=== PATIENT | male | born 1940 | race Caucasian/White ===

== ENCOUNTER 2019-12-27 09:43 | Outpatient (CLI) | payer MEDICARE, BC, SELFPAY ==
[2019-12-27 10:33] LABS: Alanine Aminotransferase 18 U/L (4-50); Alkaline Phosphatase 70 U/L (38-126); Aspartate Amino Transferase 26 U/L (17-59); Bilirubin,Total 0.7 mg/dL (0.2-1.3); Blood Urea Nitrogen 14 mg/dL (9-20); Calcium 8.8 mg/dL (8.4-10.2); Carbon Dioxide 31 mmol/L (22-30); Chloride 103 mmol/L (98-107); Cholesterol 127 mg/dL (0-200); Estimated Glomerular Filt Rate > 60; Glucose 123 mg/dL (75-110); HDL Direct 35 mg/dL; Potassium 3.9 mmol/L (3.4-5.0); Sodium 138 mmol/L (137-145); Triglycerides 108 mg/dL (<150)
[2019-12-27 10:44] LABS: LDL Cholesterol Direct 72 mg/dL
[2019-12-27 10:56] LABS: Hemoglobin A1C 7.2 % (<5.7)
[2019-12-27 11:06] LABS: Free T4 Free Thyroxine 1.11 ng/mL (0.78-2.19)
== END 2019-12-27 09:44 | disposition home or self-care (01) ==
PROVIDERS: PCP Internal Medicine; Visit Provider Nurse Practitioner
DX: E11.9 Type 2 diabetes mellitus without complications (principal); I10 Essential (primary) hypertension; E03.9 Hypothyroidism, unspecified
CPT/HCPCS: 36415; 80053; 80061; 83036; 84439; 84443

== ENCOUNTER 2020-03-13 16:26 | Emergency (ER) | payer MEDICARE, BC, SELFPAY ==
[2020-03-13 16:33] VITALS: BP 138/62; PULSE 80; RESP 14; TEMP 36.2; O2SAT 97
--- NOTE | 2020-03-13 17:15 | ED.GENADULT ---
HPI - General Adult General Chief complaint: Extremity Injury, Upper Stated complaint: finger injury Time Seen by Provider: 03/13/20 16:37 Source: patient Mode of arrival: ambulatory Limitations: no limitations History of Present Illness HPI narrative: Patient is an 80-year-old male who presents to emergency department for evaluation of laceration of the thumb patient had a flat head screwdriver slipped lacerating the thumb patient presents with half centimeter linear laceration that is superficial patient is unsure as to tetanus status Related Data Home Medications Medication Instructions Recorded Confirmed tacrolimus 0.1 % topical ointment 1 applic TOPICAL DAILY gm 06/28/19 metronidazole 0.75 % topical gel 1 applic TOPICAL DAILY 01/03/20 Allergies Allergy/AdvReac Type Severity Reaction Status Date / Time No Known Allergies Allergy Mild Verified 03/13/20 16:32 Review of Systems Review of Systems: All systems reviewed & are unremarkable except as noted in HPI and below PMFSH Social History Social History Smoking status: Never smoker Second hand tobacco smoke exposure: No Alcohol intake: never Gender identity (if verbalized by the patient): Male Exam Narrative: Exam Narrative: GENERAL: Well-appearing, well-nourished, and in no acute distress. HEAD: Normocephalic, atraumatic. EYES: PERRLA and EOMI. ENT: Nares clear, no rhinorrhea or epistaxis. Mucous membranes moist. EXTREMITIES: Normal range of motion. No edema. SKIN: Warm, dry, no rash. Half centimeter irregular superficial laceration of the distal left thumb NEURO: No focal deficits. Alert and oriented x3. Neurovascularly intact PSYCH: Normal mood and affect. Course Course Emergency Course: Patient in the room aware of case findings treatment plan and diagnosis agreeing to follow-up as directed Vital Signs Vital signs: Vital Signs Temperature 97.1 F L 03/13/20 16:33 Pulse Rate 80 03/13/20 16:33 Respiratory Rate 14 03/13/20 16:33 Blood Pressure 138/62 03/13/20 16:33 Pulse Oximetry 97 03/13/20 16:33 Temperature 97.1 F L 03/13/20 16:33 Pulse Rate 80 03/13/20 16:33 Respiratory Rate 14 03/13/20 16:33 Blood Pressure 138/62 03/13/20 16:33 Pulse Oximetry 97 03/13/20 16:33 Procedures Laceration Laceration 1: Date: 03/13/20 Time: 17:16 Site: upper extremity Side (If applicable): left Description: irregular Pre-repair: wound explored ====== Skin Level ====== Skin layer closed with: steri strips ====== Subcutaneous Layer ====== ====== Muscle Layer ====== ====== Tendon Layer ====== Medical Decision Making MDM Narrative Medical decision making narrative: Patients injury or pain is consistent with musculoskeletal etiology. No signs of neurological or vascular compromise on exam. Compartments and tisues are soft without signs of compartment syndrome. Pain is felt appropriate for further evaluation on an outpatient basis. Vital Signs Vital Signs: Vital Signs Temperature 97.1 F L 03/13/20 16:33 Pulse Rate 80 03/13/20 16:33 Respiratory Rate 14 03/13/20 16:33 Blood Pressure 138/62 03/13/20 16:33 Pulse Oximetry 97 03/13/20 16:33 Temperature 97.1 F L 03/13/20 16:33 Pulse Rate 80 03/13/20 16:33 Respiratory Rate 14 03/13/20 16:33 Blood Pressure 138/62 03/13/20 16:33 Pulse Oximetry 97 03/13/20 16:33 Discharge Plan Discharge Clinical Impression: Laceration of thumb Patient Disposition: Home, Self-Care Condition: Stable Instructions: Antibiotic Form, Laceration (ED) Additional Instructions: Keep wound clean and dry. Do not soak, take baths, or swim until wound is completely healed. If any signs of infection such as redness, swelling, increasing pain, drainage of purulent discharge, streaks up your extremity develop, seek medical attention
[2020-03-13] MEDS: TETANUS,DIPHTHERIA,AC PERTUSSIS ADULT (0.5 ML) BOOSTRIX IM (18:00)
== END 2020-03-13 18:01 | disposition home or self-care (01) ==
PROVIDERS: Emergency Provider Emergency Medicine; PCP Internal Medicine
DX: S61.012A Laceration without foreign body of left thumb without damage to nail, initial encounter (principal); W27.0XXA Contact with workbench tool, initial encounter; Z23 Encounter for immunization
CPT/HCPCS: 90471; 90715; 99282

== ENCOUNTER 2020-05-04 14:42 | Outpatient (CLI) | payer MEDICARE, BC, SELFPAY ==
[2020-05-04 15:22] LABS: Hematocrit 34.3 % (42.0-52.0); Hemoglobin 11.7 g/dL (14.0-18.0)
[2020-05-04 15:32] LABS: Hemoglobin A1C 6.8 % (<5.7)
[2020-05-04 15:34] LABS: Alanine Aminotransferase 19 U/L (4-50); Albumin Level 3.9 g/dL (3.5-5.1); Alkaline Phosphatase 69 U/L (38-126); Anion Gap 7 mmol/L (8-16); Aspartate Amino Transferase 23 U/L (17-59); Bilirubin,Total 0.8 mg/dL (0.2-1.3); Blood Urea Nitrogen 15 mg/dL (9-20); Carbon Dioxide 29 mmol/L (22-30); Chloride 104 mmol/L (98-107); Cholesterol 137 mg/dL (0-200); Estimated Glomerular Filt Rate > 60; Glucose 163 mg/dL (75-110); HDL Direct 33 mg/dL; Potassium 3.7 mmol/L (3.4-5.0); Sodium 140 mmol/L (137-145); Triglycerides 291 mg/dL (<150)
[2020-05-04 15:45] LABS: LDL Cholesterol Direct 66 mg/dL
[2020-05-04 16:04] LABS: Thyroid Stimulating Hormone 0.995 uIU/mL (0.465-4.680)
== END 2020-05-04 14:43 | disposition home or self-care (01) ==
PROVIDERS: PCP Internal Medicine; Visit Provider Internal Medicine
DX: E78.5 Hyperlipidemia, unspecified (principal); E11.9 Type 2 diabetes mellitus without complications; I10 Essential (primary) hypertension; D64.9 Anemia, unspecified; E03.9 Hypothyroidism, unspecified
CPT/HCPCS: 36415; 80053; 80061; 83036; 84443; 85014; 85018

== ENCOUNTER 2020-10-20 10:00 | Outpatient (CLI) | payer MEDICARE, BC, SELFPAY ==
[2020-10-20 10:23] LABS: Hemoglobin A1C 6.7 % (<5.7)
[2020-10-20 10:26] LABS: Potassium 4.3 mmol/L (3.4-5.0)
[2020-10-20 10:28] LABS: Alanine Aminotransferase 20 U/L (4-50); Albumin Level 3.7 g/dL (3.5-5.1); Alkaline Phosphatase 67 U/L (38-126); Anion Gap 3 mmol/L (8-16); Aspartate Amino Transferase 27 U/L (17-59); Bilirubin,Total 1.1 mg/dL (0.2-1.3); Blood Urea Nitrogen 17 mg/dL (9-20); Calcium 8.3 mg/dL (8.4-10.2); Carbon Dioxide 31 mmol/L (22-30); Chloride 104 mmol/L (98-107); Cholesterol 84 mg/dL (0-200); Estimated Glomerular Filt Rate > 60; Glucose 130 mg/dL (75-110); HDL Direct 36 mg/dL; Sodium 138 mmol/L (137-145); Triglycerides 121 mg/dL (<150)
[2020-10-20 10:41] LABS: LDL Cholesterol Direct < 30 mg/dL
== END 2020-10-20 10:01 | disposition home or self-care (01) ==
LOC: ANHLAB 10:03
PROVIDERS: PCP Internal Medicine; Visit Provider Nurse Practitioner
DX: E78.5 Hyperlipidemia, unspecified (principal); E11.9 Type 2 diabetes mellitus without complications
CPT/HCPCS: 36415; 80053; 80061; 83036

== ENCOUNTER 2020-11-02 11:28 | Outpatient (CLI) | payer MEDICARE, BC, SELFPAY ==
[2020-11-02 12:15] LABS: Hematocrit 32.9 % (42.0-52.0); Hemoglobin 11.2 g/dL (14.0-18.0)
== END 2020-11-02 11:29 | disposition home or self-care (01) ==
PROVIDERS: PCP Internal Medicine; Visit Provider Internal Medicine
DX: G62.9 Polyneuropathy, unspecified (principal); D64.9 Anemia, unspecified; I10 Essential (primary) hypertension; Z79.899 Other long term (current) drug therapy
CPT/HCPCS: 36415; 82607; 85014; 85018

== ENCOUNTER 2021-04-28 07:25 | Outpatient (CLI) | payer MEDICARE, BC, SELFPAY ==
[2021-04-28 08:19] LABS: Alanine Aminotransferase 30 U/L (4-50); Albumin Level 3.9 g/dL (3.5-5.1); Alkaline Phosphatase 69 U/L (38-126); Anion Gap 5 mmol/L (8-16); Aspartate Amino Transferase 32 U/L (17-59); Bilirubin,Total 0.9 mg/dL (0.2-1.3); Blood Urea Nitrogen 19 mg/dL (9-20); Calcium 9.1 mg/dL (8.4-10.2); Carbon Dioxide 30 mmol/L (22-30); Chloride 104 mmol/L (98-107); Cholesterol 105 mg/dL (0-200); Estimated Glomerular Filt Rate > 60; Glucose 105 mg/dL (65-110); HDL Direct 41 mg/dL; Potassium 4.2 mmol/L (3.4-5.0); Sodium 139 mmol/L (137-145); Triglycerides 178 mg/dL (<150)
[2021-04-28 08:29] LABS: Hemoglobin A1C 6.8 % (<5.7)
[2021-04-28 08:31] LABS: LDL Cholesterol Direct 38 mg/dL
[2021-04-28 08:51] LABS: Vitamin D 25 Hydroxy 36.7 ng/mL
== END 2021-04-28 07:26 | disposition home or self-care (01) ==
PROVIDERS: PCP Internal Medicine; Visit Provider Internal Medicine
DX: E11.9 Type 2 diabetes mellitus without complications (principal); E78.5 Hyperlipidemia, unspecified; Z51.81 Encounter for therapeutic drug level monitoring; Z79.899 Other long term (current) drug therapy; E55.9 Vitamin D deficiency, unspecified; E03.9 Hypothyroidism, unspecified
CPT/HCPCS: 36415; 80053; 80061; 82306; 83036; 84443

== ENCOUNTER 2021-06-07 16:00 | Inpatient (IN) | payer MEDICARE, BC, SELFPAY ==
[2021-06-07] VITALS (7 sets, daily range): BP systolic 151–180; BP diastolic 73–86; PULSE 59–73; RESP 12–18; TEMP 36.2–36.6; O2SAT 96–99
--- NOTE | ~2021-06-07 | US_ITS ---
EXAMINATION: US venous doppler [facility] DATE: 06/08/2021 14:37 INDICATION: Lower limb edema. TECHNIQUE: Grayscale ultrasound images without and with compression and Doppler ultrasound images of the bilateral lower extremity veins were obtained. COMPARISON: None. FINDINGS: The visualized portions of right common femoral vein, profunda (deep) femoral vein, femoral vein, pop liteal vein, peroneal veins, posterior tibial veins, and greater saphenous vein outflow are patent. The visualized portions of left common femoral vein, profunda femoral vein, femoral vein, popliteal v ein, peroneal veins, posterior tibial veins, and greater saphenous vein outflow are patent. IMPRESSION: 1. No deep venous thrombosis. Reviewed, dictated and finalized at location A. OMER SUCCESS DIRECTOR
--- NOTE | ~2021-06-07 | XR_ITS ---
EXAMINATION: XR chest 1V portable DATE: 06/08/2021 14:34 INDICATION: Lower limb edema. TECHNIQUE: A single frontal view of the chest was obtained. COMPARISON: Chest 2 views 07/05/2018, CT abdomen and pelvis 03/14/2019 FINDINGS: Calcified pulmonary nodules are consistent with old granulomatous disease. No pleural effus ion or pneumothorax. The heart size is normal. IMPRESSION: 1. No acute cardiopulmonary disease. Reviewed, dictated and finalized at location A. DRIVER
--- NOTE | ~2021-06-07 | US_ITS ---
EXAMINATION: US carotid duplex BI DATE: 06/09/2021 17:12 INDICATION: Syncope. TECHNIQUE: Grayscale, color Doppler, and pulsed Doppler images of the cervical carotid arteries were obtained. The degree of vessel stenosis is placed in one of the following categories: normal, <50%, 5 0-69%, >=70% but less than near-occlusion, near-occlusion, or total occlusion. Note that percent sten osis relative to normal distal artery lumen diameter is indirectly measured from velocity measurement s as described by , et al. Radiology 2003; 229:340-346. COMPARISON: Ultrasound 01/13/2010 FINDINGS: RIGHT: The right common carotid artery (CCA) peak systolic velocity (PSV) is 101 cm/s. The right internal ca rotid artery (ICA) PSV is 93 cm/s. The right ICA end-diastolic velocity (EDV) is 11 cm/s. The right I CA/CCA PSV ratio is 0.9. Grayscale and color Doppler images yield an estimate of <50% diameter reduct ion from plaque in the ICA. There is antegrade flow in the right vertebral artery. LEFT: The left CCA PSV is 84 cm/s. The left ICA PSV is 141 cm/s. The left ICA EDV is 25 cm/s. The left ICA/ CCA PSV ratio is 1.7. Grayscale and color Doppler images yield an estimate of <50% diameter reduction from plaque in the ICA. There is antegrade flow in the left vertebral artery. IMPRESSION: 1. <50% stenosis in the right internal carotid artery. 2. <50% stenosis in the left internal carotid artery. Reviewed, dictated and finalized at location A. ET STONE POSITIONER
--- NOTE | ~2021-06-07 | CT_ITS ---
. EXAMINATION: CTA chest DATE: 06/08/2021 16:30 INDICATION: Chest pain. TECHNIQUE: Computed tomographic angiography (CTA) of the chest was performed with 100 mL Omnipaque-35 0 intravenous contrast. Automated exposure control and iterative reconstruction technique were employ ed. The dose-length product was 430.98 mGy-cm. Maximum intensity projection 3D-reconstructions of the aorta and other arteries were constructed by the technologist on a separate workstation. COMPARISON: CT abdomen and pelvis 03/14/2019 FINDINGS: The lungs demonstrate mild atelectasis. There is a chronic 7 mm nodule in right middle lobe , likely benign. There is a chronic 3 mm nodule in lingula, likely benign. No pleural effusion. The h eart size is normal. No pericardial effusion. There is no pulmonary embolus. There is mild aortic ath erosclerosis. No aneurysm or dissection. 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 There is mild thoracic spondylosis. IMPRESSION: 1. Mild aortic atherosclerosis. No aneurysm or dissection. 2. No pulmonary embolus. Reviewed, dictated and finalized at location A. CTOR DIGITAL COMMUNICATIONS
--- NOTE | ~2021-06-07 | MR_ITS ---
EXAMINATION: MR brain/brain stem wo con EXAM DATE: 06/10/2021 12:09 INDICATION: Persistent headache, transient hypotension. TECHNIQUE: Magnetic resonance imaging (MRI) of the brain/brain stem obtained without contrast. Sagitt al T1, axial diffusion, gradient echo (T2*), T1, T2, FLAIR sequences obtained. Comparison is made to prior examination from 01/13/2010. FINDINGS: There are no areas of restricted diffusion to suggest acute infarction. There is no acute hemorrhage seen on the T2*, a hemosiderin sensitive sequence. No intraparenchymal brain mass lesion. CSF herniation into the sella turcica, empty sella appearance unchanged. There is mild periventric ular and subcortical T2/FLAIR signal hyperintensity, nonspecific but probably related to small vessel ischemic disease (microangiopathy). There is mild prominence of the sulci and ventricles related t o cerebral atrophy. There are no extra-axial collections. Flow voids are seen in the cerebral bebeto rachel on the T2-weighted sequences consistent with their expected patency. The orbits are unremarkabl e. Soft tissue is unremarkable. Moderate-sized mucous retention cyst inferior aspect left maxillary sinus. IMPRESSION: 1. No acute intracranial findings. 2. Chronic age related findings, mild progression compared to 2009. Reviewed, dictated and finalized at location B. NCE MGR
--- NOTE | ~2021-06-07 | CT_ITS ---
EXAMINATION: CT brain wo con DATE: 06/07/2021 21:26 INDICATION: Dizziness TECHNIQUE: Computed tomography (CT) of the head was performed without intravenous contrast. Sagittal and coronal reconstructions were performed. The mA was adjusted according to patient size. Iterative reconstruction technique was employed. The dose-length product was 529.67 mGy-cm. COMPARISON: head CT dated 07/13/2018 FINDINGS: No acute intracranial hemorrhage, acute infarction or abnormal extra axial fluid collection. There is mild scattered white matter hypoattenuation consistent with chronic small vessel ischemic disease. S ymmetric prominence of the sulci and subarachnoid spaces overlying the convexities consistent with mi ld age-appropriate diffuse cerebral volume loss. Ventricles are normal and symmetric. No mass/mass e ffect. Mild mucosal thickening in the bilateral ethmoid and right maxillary sinuses. The orbits and m astoid air cells are normal. IMPRESSION: 1. Normal aging brain. No acute intracranial process. Reviewed, dictated and finalized at location A. AL SERVICE TECHNICIAN
--- NOTE | 2021-06-07 16:07 | ECG_ITS ---
Measurements Intervals [place] Rate: 69 P: 17 NE: 163 QRS: -28 QRSD: 110 T: 38 QT: 410 QTc: 440 Interpretive Statements SINUS RHYTHM WITH SINUS ARRHYTHMIA INTRAVENTRICULAR CONDUCTION DELAY DELAYED PRECORDIAL R/S TRANSITION BORDERLINE ECG Electronically Signed On 06-07-2021 16:32:22 HOT BLAST WORKER by Jackson Morton D.O.
[2021-06-07 16:37] LABS: Basophils Percent Auto 0.4 % (0.2-1.2); Eosinophils Absolute Auto 0.1 K/mm3 (0-0.3); Eosinophils Percent Auto 0.5 % (0-4.4); Hematocrit 35.6 % (42.0-52.0); Hemoglobin 12.1 g/dL (14.0-18.0); Immature Granulocyte Absolute 0.05 K/mm3 (0.00-0.031); Immature Granulocyte Percent A 0.5 % (0-0.5); Lymphocytes Absolute Auto 1.07 K/mm3 (0.9-3.2); Lymphocytes Percent Auto 11.5 % (18.3-44.2); Mean Corpuscular Hemoglobin 31.1 pg (26-34); Mean Corpuscular Volume 91.5 fl (80-100); Mean Platelet Volume 8.5 fl (7.4-10.4); Monocytes Absolute Auto 0.6 K/mm3 (0.1-0.6); Monocytes Percent Auto 6.7 % (2.6-8.5); Neutrophils Absolute Auto 7.5 K/mm3 (1.3-6.7); Neutrophils Percent Auto 80.4 % (45.5-73.1); Platelet Count Result 257 k/mm3 (150-375); Red Blood Count 3.89 M/mm3 (4.6-6.20); Red Cell Distribution Width 12.8 % (11.5-14.5); White Blood Count 9.3 K/mm3 (4.5-10.0)
[2021-06-07 16:46] LABS: Anion Gap 7 mmol/L (8-16); Blood Urea Nitrogen 20 mg/dL (9-20); Calcium 9.3 mg/dL (8.4-10.2); Carbon Dioxide 29 mmol/L (22-30); Chloride 100 mmol/L (98-107); Estimated CRCL calculation 44 ml/min; Estimated Glomerular Filt Rate > 60; Glucose 178 mg/dL (65-110); Sodium 136 mmol/L (137-145)
--- NOTE | 2021-06-07 21:19 | PC.NURSE ---
Pt to CT via stretcher at this time,
[2021-06-07] MEDS: LACTATED RINGERS 1,000 ML 999 ML IV CONT (21:38)
--- NOTE | 2021-06-07 21:53 | ED.CHESTPAIN ---
HPI - Chest Pain General Chief Complaint: Dizziness Stated Complaint: low BP, CP. Time Seen by Provider: 06/07/21 21:07 Source: patient Mode of arrival: ambulatory Limitations: no limitations History of Present Illness HPI narrative: Patient is an 82-year-old male complaining of chest tightness accompanied by nausea and lightheadedness that started after eating tonight. Patient states that his blood pressure was low when he checked it, 95/45, while he was having the above symptoms. Patient currently denies any chest pain or discomfort. Patient states that he is feeling better and the above symptoms is resolved. Patient denies any speech or visual disturbance, focal weakness or numbness, unsteady gait, shortness of breath, abdominal pain, vomiting, diarrhea, fever or chills. Related Data Home Medications Medication Instructions Recorded Confirmed tacrolimus 0.1 % topical ointment 1 applic TOPICAL DAILY gm 06/28/19 05/12/21 metronidazole 0.75 % topical gel 1 applic TOPICAL DAILY 01/03/20 05/12/21 multivitamin 1 cap PO DAILY 04/29/20 05/12/21 isosorbide dinitrate 30 mg tablet 30 mg PO ONCE tablet 11/02/20 05/12/21 metoprolol succinate 50 mg 50 mg PO DAILY 11/02/20 05/12/21 tablet,extended release 24 hr mecobalamin (vitamin B12) 1,000 1,000 mcg PO DAILY 11/03/20 05/12/21 mcg disintegrating tablet,sublingual vitamin B12 500 mcg-folic acid 400 1 tablet PO DAILY 11/03/20 05/12/21 mcg tablet Allergies Allergy/AdvReac Type Severity Reaction Status Date / Time No Known Allergies Allergy Mild Verified 06/07/21 21:38 Review of Systems Review of Systems: All systems reviewed & are unremarkable except as noted in HPI and below Constitutional: Constitutional: Denies body ache(s), Denies chills, Denies excessive sweating, Denies fatigue, Denies fever(s), Denies headache(s), Denies lethargy, Denies malaise, Denies weakness and Denies weight loss Eyes: Eyes: Denies blurry vision, Denies change in vision and Denies loss of vision ENT: Denies dizziness, Denies ear discharge, Denies headache(s), Denies lip swelling, Denies epistaxis, Denies nasal congestion, Denies neck pain, Denies throat swelling and Denies tongue swelling Cardiovascular: Cardiovascular: Denies chest pain with activity, Denies diaphoresis, Denies rapid heart rate, Denies edema, Denies irregular heart rhythm, Denies palpitations, Denies dyspnea and Denies dyspnea on exertion Respiratory: Respiratory: Denies chest congestion, Denies cough, Denies hemoptysis, Denies dyspnea and Denies dyspnea on exertion Gastrointestinal: Gastrointestinal: Denies abdominal pain, Denies melena, Denies hematochezia, Denies diarrhea, Denies vomiting and Denies hematemesis Musculoskeletal: Musculoskeletal: Denies abnormal gait, Denies deformity, Denies joint swelling, Denies limited range of motion, Denies neck pain and Denies numbness Neurologic: Denies Abnormal speech present, Denies abnormal gait, Denies confusion, Denies dizziness, Denies headache(s), Denies focal weakness, Denies loss of vision, Denies numbness, Denies Other visual disturbances, Denies Sensory deficit (Neuro) and Denies weakness Psychiatric: Psychiatric: Denies confusion, Denies depression, Denies auditory hallucinations, Denies homicidal ideation and Denies suicidal ideation Endocrine: Endocrine: Denies cold intolerance, Denies excessive sweating, Denies fatigue, Denies heat intolerance and Denies palpitations Hematologic/Lymphatic: Hematologic/Lymphatic: Denies easy bleeding and Denies easy bruising Allergic/Immunologic: Allergic/Immunologic: Denies lip swelling, Denies throat swelling and Denies tongue swelling PMFSH Past Medical History Medical History COVID-19 Essential (primary) hypertension Gastro-esophageal reflux disease without esophagitis Hypothyroidism Neuropathy Other and unspecified hyperlipidemia Type 2 diabetes mellitus without complication,
--- NOTE | 2021-06-07 22:23 | PC.NURSE ---
Pt ambulated to restroom with steady gait. No dizziness reported by pt
[2021-06-07 22:30] LABS: Prothrombin Time 12.8 Seconds (11.1-14.7)
[2021-06-07 22:31] LABS: Partial Thromboplastin Time 45.4 SECONDS (22.3-36.8)
[2021-06-07 22:44] LABS: Troponin I < 0.012 ng/mL (0.000-0.034)
[2021-06-08] VITALS (23 sets, daily range): BP systolic 85–164; BP diastolic 51–81; PULSE 55–96; RESP 13–20; TEMP 36.3–37.2; O2SAT 94–98; BMI 30.4
--- NOTE | 2021-06-08 | ECHO_ITS ---
Patient Info Name: Loy Gonzalez Age: 81 years : 1940 Gender: Male Ht: 64 in Wt: 177 lbs BSA: 1.93 m2 HR: 75 bpm BP: 113 / 56 mmHg Heart Rhythm: Sinus Rhythm Exam Date: 06/08/2021 1:55 PM Exam Location: [facility] Pulmonary Patient Status: Inpatient Admit Date: 06/08/2021 Staff Ordering Physician: Brian Thomason MD [employer] Director: Elpidio Hernández RDCS, RT Attending Provider: Estela Rush PA-C Referring Physician: Paddy EARLY; Exam Type: CA echo doppler color flow Study Info Indications R07.9 - Chest pain, unspecified Complete two-dimensional, color flow and Doppler transthoracic echocardiogram is performed. Strain analysis performed. Summary 1. Complete two-dimensional, color flow and Doppler transthoracic echocardiogram is performed. 2. Left ventricular chamber dimension is normal. 3. Left ventricular systolic function is normal, estimated at 65-70%. 4. There is moderately increased left ventricular wall thickness. 5. The left ventricular diastolic function is grade I diastolic dysfunction. 6. Global longitudinal strain is borderline at -17 %. 7. Right ventricular chamber dimension is mildly enlarged. 8. Left atrial chamber dimension is mildly enlarged. 9. There is mild mitral valve regurgitation. 10. There is mild pulmonic regurgitation. 11. Strain analysis performed. Left Ventricle Left ventricular chamber dimension is normal. Left ventricular systolic function is normal, estimated at 65-70%. There is moderately increased left ventricular wall thickness. The left ventricular diastolic function is grade I diastolic dysfunction. Global longitudinal strain is borderline at -17 %. Right Ventricle Right ventricular chamber dimension is mildly enlarged. Right ventricular systolic function is normal. Left Atria Left atrial chamber dimension is mildly enlarged. Right Atria Right atrial chamber dimension is normal. Atrial Septum Intact interatrial septum visualized by color flow imaging. Aortic Valve The aortic valve is trileaflet. There is mild aortic valve sclerosis. There is no aortic valve stenosis. There is trace aortic valve regurgitation. Pulmonic Valve The pulmonic valve is normal. There is no pulmonic valve stenosis. There is mild pulmonic regurgitation. Mitral Valve The mitral valve has normal leaflets. There is no mitral valve stenosis. There is mild mitral valve regurgitation. Tricuspid Valve The tricuspid valve leaflets are normal. There is no significant tricuspid valve stenosis. There is trace tricuspid valve regurgitation. Pericardium/Pleural The pericardium appears normal. There is no pericardial effusion. Inferior Vena Cava Normal inferior vena cava with >50% collapse upon inspiration consistent with normal right atrial pressure, 5 mmHg. Aorta The aortic root size at the sinus of Valsalva is normal. Left Ventricular Outflow Tract Name Value Normal LVOT 2D LVOT Diameter 2.1 cm LVOT Doppler LVOT Peak Gradient 4 mmHg LVOT Mean Gradient 3 mmHg LVOT VTI
--- NOTE | 2021-06-08 01:27 | PM.IMHP ---
H&P: HPI History of Present Illness Date/Time: 06/08/21 01:27 Chief Complaint: Chest discomfort Narrative: This is an 81-year-old male with past medical history significant for hypertension, dyslipidemia, degenerative joint disease. Patient presented to the emergency room after he had an episode of epigastric discomfort which radiated around to the back and to his right shoulder this was 1 he just had had few bites of his meal he immediately went and lay down and his took his blood pressure he was found to have a blood pressure of 95/45 he felt a little dizzy cold and clammy but did not pass out he did he had some nausea but no vomiting he has been his usual state of health prior to this he denies any shortness of breath, cough, sputum production, fevers, rigors, chills, leg swelling,vision changes ,any sensory motor focal deficit ,no chest pain, no PND ,no orthopnea ,preliminary workup has been essentially nonrevealing. Patient has been admitted for further evaluation and treatment. Review of Systems Review of Systems: Epigastric discomfort, dizziness, nausea ,diaphoresis. Constitutional: Constitutional: Denies chills, Denies fatigue, Denies fever(s), Denies lethargy, Denies malaise, Denies night sweats and Denies weakness Eyes: Eyes: Denies change in vision ENT: Denies dysphagia, Reports dizziness, Denies nasal congestion, Denies nasal discharge, Denies nasal obstruction and Denies odynophagia Cardiovascular: Cardiovascular: Denies rapid heart rate, Denies irregular heart rhythm, Denies leg edema, Reports lightheadedness, Denies radiating jaw, neck or arm pain, Denies palpitations, Reports dyspnea, Denies dyspnea on exertion, Denies orthopnea, Denies paroxysmal nocturnal dyspnea and Denies slow heart rate Respiratory: Respiratory: Denies cough Gastrointestinal: Gastrointestinal: Denies dyspepsia, Denies heartburn, Denies diarrhea, Reports nausea and Denies vomiting Genitourinary: Genitourinary: Denies dysuria Musculoskeletal: Musculoskeletal: Reports arthralgias (Left knee) Integumentary/Breasts: Skin/Breast: Denies rash Neurologic: Denies focal weakness and Denies Sensory deficit (Neuro) Psychiatric: Psychiatric: Reports no additional psychiatric complaints and Reports as per HPI Endocrine: Endocrine: Reports no additional endocrine complaints and Reports as per HPI Hematologic/Lymphatic: Hematologic/Lymphatic: Reports no additional hematologic/lymphatic complaints and Reports as per HPI Allergic/Immunologic: Allergic/Immunologic: Reports no additional allergic/immunologic complaints and Reports as per HPI [facility] Past Medical History Medical History COVID-19 Essential (primary) hypertension Gastro-esophageal reflux disease without esophagitis Hypothyroidism Neuropathy Other and unspecified hyperlipidemia Type 2 diabetes mellitus without complication, with no history of insulin use Vitamin D deficiency Family History Family History Mother Family history of gastrointestinal disorder, Onset Age: 85 Family history of congestive heart failure, Onset Age: 85 Patient's mother is Family history of heart disease in male family member before age 55 Family history of congenital heart disease, Onset Age: 85 Father Family history of Alzheimer's disease, Onset Age: 89 Patient's father is Family history of renal failure Sibling Family history of Alzheimer's disease Other Hypertension Social History Social History Smoking status: Former smoker Second hand tobacco smoke exposure: No Additional smoking assessment comments: quit smoking in 1964 Alcohol intake: never Substance use: never Substance use type: does not use Gender identity (if verbalized by the patient): Male Spiritual care concerns: No
--- NOTE | 2021-06-08 01:33 | ADMGEN ---
This patient, Loy Gonzalez, was admitted to IMU Room 207-01 at 0125. Patient/family oriented to hospital policies and general routines including ID bracelet, bed and alarms, visiting hours, pain management, procedures, bathroom and other care routines, personal items, smoking policy, room service/diet, and visiting hours. Information on how to activate the Rapid Response Team has been discussed. Patient/Family are encouraged to report perceived risks to care and to ask questions if they do not understand what they are told or what they should do.
[2021-06-08 03:40] LABS: Troponin I < 0.012 ng/mL (0.000-0.034)
[2021-06-08 05:47] LABS: Troponin I < 0.012 ng/mL (0.000-0.034)
[2021-06-08 08:35] LABS: Glucose Point of Care 108 mg/dl (65-105)
[2021-06-08 09:34] LABS: Basophils Percent Auto 0.6 % (0.2-1.2); Eosinophils Absolute Auto 0.1 K/mm3 (0-0.3); Eosinophils Percent Auto 1.8 % (0-4.4); Hematocrit 36.6 % (42.0-52.0); Hemoglobin 12.7 g/dL (14.0-18.0); Immature Granulocyte Absolute 0.03 K/mm3 (0.00-0.031); Immature Granulocyte Percent A 0.4 % (0-0.5); Lymphocytes Absolute Auto 1.11 K/mm3 (0.9-3.2); Lymphocytes Percent Auto 15.6 % (18.3-44.2); Mean Corpuscular HGB Conc 34.7 g/dl (32-36); Mean Corpuscular Volume 89.3 fl (80-100); Mean Platelet Volume 8.4 fl (7.4-10.4); Monocytes Absolute Auto 0.6 K/mm3 (0.1-0.6); Neutrophils Absolute Auto 5.3 K/mm3 (1.3-6.7); Neutrophils Percent Auto 73.6 % (45.5-73.1); Platelet Count Result 262 k/mm3 (150-375); Red Cell Distribution Width 12.7 % (11.5-14.5); White Blood Count 7.1 K/mm3 (4.5-10.0)
[2021-06-08 09:54] LABS: Anion Gap 10 mmol/L (8-16); Blood Urea Nitrogen 14 mg/dL (9-20); Calcium 9.2 mg/dL (8.4-10.2); Carbon Dioxide 28 mmol/L (22-30); Chloride 101 mmol/L (98-107); Estimated CRCL calculation 59 ml/min; Estimated Glomerular Filt Rate > 60; Glucose 132 mg/dL (65-110); Potassium 3.6 mmol/L (3.4-5.0); Sodium 139 mmol/L (137-145)
[2021-06-08] MEDS: LEVOTHYROXINE SODIUM 75 MCG TABLET PO (10:42)
[2021-06-08] MEDS: GABAPENTIN 100 MG CAPSULE PO ×2 (10:43→17:24)
[2021-06-08] MEDS: FOLIC ACID 0.4 MG TABLET 0.8 MG PO (10:44)
[2021-06-08] MEDS: CHOLECALCIFEROL 1,000 UNITS TABLET 2000 UNITS PO (10:44)
[2021-06-08] MEDS: CYANOCOBALAMIN 1,000 MCG TABLET 1000 MCG PO (10:45)
[2021-06-08] MEDS: amLODIPine BESYLATE 5 MG TABLET PO (10:46)
[2021-06-08] MEDS: PANTOPRAZOLE 40 MG TABLET PO ×2 (10:47→17:24)
[2021-06-08] MEDS: LORATADINE 10 MG TABLET PO (10:48)
[2021-06-08] MEDS: lisinopriL 20 MG TABLET 40 MG PO (11:00)
[2021-06-08] MEDS: MULTIVITAMINS THERAPEUTIC TAB (*BKC) 1 TABLET PO (11:06)
[2021-06-08] MEDS: ISOSORBIDE DINITRATE 10 MG TABLET 30 MG PO (11:07)
--- NOTE | 2021-06-08 11:48 | PM.CNCAR ---
Assessment and Plan Assessment and plan (1) Chest pain: Qualifiers: Chest pain type: unspecified Qualified Code(s): R07.9 - Chest pain, unspecified Code(s): R07.9 - Chest pain, unspecified Status: Acute Assessment and Plan: Somewhat concerning for angina especially in light of his previously abnormal stress test. At this point, I talked about pursuing further uptitration medical management versus cardiac catheterization to define his anatomy. He wishes to pursue an angiogram. Risks, benefits alternatives are discussed and he is willing to proceed. Will keep NPO after midnight for coronary angiogram tomorrow. Continue Isordil. 2D echocardiogram Doppler also be ordered and reviewed. Aspirin 81 mg p.o. daily to be started. Hold metformin in preparation for coronary angiogram tomorrow. (2) Essential (primary) hypertension: Code(s): I10 - Essential (primary) hypertension Status: Acute Assessment and Plan: Continue amlodipine, lisinopril (3) Abnormal stress test: Code(s): R94.39 - Abnormal result of other cardiovascular function study Status: Acute Assessment and Plan: Previous evidence of inferior apical kinesis on stress test from June 2020 (4) Hyperlipidemia associated with type 2 diabetes mellitus: Code(s): E11.69 - Type 2 diabetes mellitus with other specified complication; E78.5 - Hyperlipidemia, unspecified Status: Acute Assessment and Plan: Will increase rosuvastatin up to 20 mg daily. (5) PND (paroxysmal nocturnal dyspnea): Code(s): R06.00 - Dyspnea, unspecified Status: Acute Assessment and Plan: Probably related to sleep apnea. Will check an apnea link tonight History of Present Illness History of Present Illness Consult date/time: 06/08/21 11:48 Requesting physician: Williams Suh MD Consult reason: chest pain Reason For Visit: Chest Pain Narrative: Date of service 06/08/2021 Reason consultation chest pain Requesting provider: Dr. Suh History: Patient is an 81-year-old male patient of Dr. Bauer. Previously saw Dr. Loja. He does have a history of hypertension, hyperlipidemia, diabetes, syncope. He presented the hospital because of some anterior chest tightness as well as some right shoulder pain. 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 It was fairly severe and intense. He then developed a tightness in his chest. He became a bit clammy. He did sit down and start eating some food but became nauseated. He did take an Aleve without any significant benefit initially but then later he thinks it may have helped some. After he became clammy, he laid down and his took his blood pressure was 95 systolic. About 10-15 minutes later he gradually started to feel a bit better as his blood pressure yolanda. Due to continued pain symptoms though which lasted about 2-1/2 hours he decided to come to the hospital for further evaluation. EKG was unremarkable. He has ruled out for myocardial infarction. Has had intermittent chest tightness though throughout the day and night. He states that this is similar to the pain that he had that led to a stress test which was abnormal. At that time it was discussed about whether to proceed with a cardiac catheterization versus medical management. It was decided to pursue medical management. He did feel better with the isosorbide which was added but at this point he wishes to pursue an angiogram to define his anatomy definitively. Over the past year so he has had worsening lower extremity swelling. He also has some dyspnea with climbing up and down stairs which is not particularly a new symptom. He denies any orthopnea or palpitations. Review of Systems Review of Systems: All systems reviewed & are unremarkable except as noted in HPI and below Constitutional: Constitutional: Denies weakness Eyes: Eyes:
--- NOTE | 2021-06-08 12:27 | ECG_ITS ---
Measurements Intervals [place] Rate: 68 P: 27 MS: 156 QRS: -24 QRSD: 102 T: 1 QT: 431 QTc: 461 Interpretive Statements SINUS RHYTHM ATRIAL PREMATURE COMPLEX DELAYED PRECORDIAL R/S TRANSITION CONSIDER INFERIOR INFARCT, AGE INDETERMINATE BORDERLINE ST ABNORMALITY- HIGH LATERAL LEADS BASELINE ARTIFACT- I, II ABNORMAL ECG Electronically Signed On 06-08-2021 13:04:50 MACHINE SILK SCREEN PRINTER by Jackson Morton D.O.
[2021-06-08] MEDS: SODIUM CHLORIDE 0.9% IV 250 ML 999 ML IV CONT (12:34)
[2021-06-08 13:03] LABS: Glucose Point of Care 137 mg/dl (65-105)
[2021-06-08] MEDS: ASPIRIN 81 MG ENTERIC TABLET PO (13:10)
--- NOTE | 2021-06-08 16:13 | PM.IMPN ---
Progress Note: A&P Assessment and Plan (1) Chest pain: Qualifiers: Chest pain type: unspecified Qualified Code(s): R07.9 - Chest pain, unspecified Code(s): R07.9 - Chest pain, unspecified Status: Acute Assessment and Plan: -Atypical -ECG with no ischemic changes -Obtain echo -Continuous telemetry -Serial trop x3 negative -Cardiology consulted, taking for cath in AM -Has had 2 episodes at rest of nausea w/ chest pain and hypotension from 147/68 to 92/54. CXR reviewed, possible tracheal deviation? Pt also had noted back pain at onset. Will check CTA dissection protocol stat to r/o aneurysm/dissection prior to cath tomorrow. He will be hydrated with NS @70/hr to offset the additional dose of IV contrast that he will be receiving in a 24 hour period. (2) Dizziness, nonspecific: Code(s): R42 - Dizziness and giddiness Status: Acute Assessment and Plan: -Likely related to above, has dizziness with his hypotensive episodes (3) Essential (primary) hypertension: Code(s): I10 - Essential (primary) hypertension Status: Acute Assessment and Plan: -Continue home meds (4) Gastro-esophageal reflux disease without esophagitis: Code(s): K21.9 - Gastro-esophageal reflux disease without esophagitis Status: Acute Assessment and Plan: Continue PPI (5) Type 2 diabetes mellitus without complication, with no history of insulin use: Code(s): E11.9 - Type 2 diabetes mellitus without complications Status: Acute Assessment and Plan: -Holding metformin -Insulin sliding scale as needed (6) Neuropathy: Code(s): G62.9 - Polyneuropathy, unspecified Status: Acute Assessment and Plan: Continue gabapentin Subjective Date/time seen: 06/08/21 16:13 Interval history: 81-year-old male with past medical history significant for hypertension, dyslipidemia, degenerative joint disease, admitted to hospital for chest pain. Today patient feels okay. Continues to have intermittent episodes of nausea, chest pain, dizziness, and hypotension. Also notes posterior headache/neck pain. No sob. Also notes bilateral leg cramps today that got better when he got up and started walking around. Review of Systems Review of Systems: General: Denies fevers, chills, bodyaches Eyes: Denies vision changes or eye pain ENT: Denies nasal congestion or sore throat Respiratory: Denies cough or shortness of breath Cardiovascular: + chest pain, no palpitations, + lower extremity edema Gastrointestinal: Denies abdominal pain, vomiting, or diarrhea, +nausea Genitourinary: Denies dysuria or urinary frequency Musculoskeletal: +bilateral knee pain, +bilateral leg cramps Neurological: + headache, paraesthesias, or motor weakness, +dizziness Integumentary: Denies rash or other skin lesions Exam Narrative: General: No acute distress, non toxic appearing Eyes: PERRL, no scleral icterus, EOMI HEENT: NCAT, external ears normal, MMM Respiratory: No respiratory distress, Lungs CTA bilaterally, no wheezing Cardiovascular: RRR, no murmur Abdominal: Soft, nontender, non distended, no rebound or guarding Musculoskeletal: Moves all 4 extremities, +1 pedal edema, DP/PT pulses 2+ Neurological: A/Ox3, speech normal, no facial asymmetry Skin: Warm, dry, no rashes Psychiatric: Normal affect, normal mood Objective Data Vital Signs Vital Signs: Vital Signs - 24 hr 06/07/21 16:18 06/07/21 19:09 06/07/21 21:14 Temperature 97.1 F L 97.8 F Pulse Rate 71 73 64 Respiratory Rate 16 18 13 Blood Pressure 151/77 H 153/85 H 156/77 H Pulse Oximetry 99 97 98 06/07/21 22:33 06/07/21 22:35 06/07/21 22:37 Temperature Pulse Rate 59 L 66 66 Respiratory Rate Blood Pressure 180/81 H 169/86 H 166/74 H Pulse Oximetry 06/07/21 23:19 06/08/21 00:55 06/08/21 01:20 Temperature Pulse Rate 59 L 56 L 63 Respiratory Rate 12 13
[2021-06-08] MEDS: SODIUM CHLORIDE 0.9% IV 1,000 ML 70 ML IV CONT (16:42)
[2021-06-08 17:16] LABS: Glucose Point of Care 198 mg/dl (65-105)
[2021-06-08] MEDS: METOPROLOL SUCCINATE EXT REL 50 MG TABCR PO (17:23)
[2021-06-08] MEDS: ROSUVASTATIN 10 MG TABLET 20 MG PO (18:19)
[2021-06-08 19:40] LABS: Glucose Point of Care 171 mg/dl (65-105)
[2021-06-09] VITALS (28 sets, daily range): BP systolic 58–143; BP diastolic 38–68; PULSE 47–78; RESP 15–20; TEMP 36.6–37.1; O2SAT 94–98
[2021-06-09] MEDS: LEVOTHYROXINE SODIUM 75 MCG TABLET PO (05:35)
[2021-06-09] MEDS: SODIUM CHLORIDE 0.9% IV 1,000 ML 70 ML IV CONT (05:35)
--- NOTE | 2021-06-09 06:27 | WPDMODSED ---
Moderate Sedation Note-Pt Data Patient Data Diagnosis: Chest pain Present Complaint: Exertional CP Procedure to be performed/Plan: Left heart cath Allergies Allergy/AdvReac Type Severity Reaction Status Date / Time No Known Allergies Allergy Mild Verified 06/07/21 21:38 Home Medications Medication Instructions Recorded Confirmed Type cholecalciferol (vitamin D3) 50 2,000 unit PO DAILY #90 tablet 06/28/19 06/08/21 Rx mcg (2,000 unit) tablet tacrolimus 0.1 % topical ointment 1 applic TOPICAL DAILY gm 06/28/19 06/08/21 History metronidazole 0.75 % topical gel 1 applic TOPICAL BID 01/03/20 06/08/21 History multivitamin 1 cap PO DAILY 04/29/20 06/08/21 History isosorbide dinitrate 30 mg tablet 30 mg PO DAILY tablet 11/02/20 06/08/21 History metoprolol succinate 50 mg 50 mg PO DAILY 11/02/20 06/08/21 History tablet,extended release 24 hr mecobalamin (vitamin B12) 1,000 1,000 mcg PO DAILY 11/03/20 06/08/21 History mcg disintegrating tablet,sublingual vitamin B12 500 mcg-folic acid 400 2 tablet PO DAILY 11/03/20 06/08/21 History mcg tablet lisinopril 40 mg tablet 40 mg PO DAILY #90 each 01/04/21 06/08/21 Rx gabapentin 100 mg capsule 100 mg PO BID #60 cap 05/12/21 06/08/21 Rx rosuvastatin 10 mg tablet 10 mg PO .every other day #15 05/31/21 06/08/21 Rx tablet amlodipine 5 mg PO DAILY 06/08/21 06/08/21 History levothyroxine 75 mcg PO DAILY 06/08/21 06/08/21 History loratadine 10 mg PO DAILY 06/08/21 06/08/21 History metformin 500 mg PO BID 06/08/21 06/08/21 History omeprazole 40 mg PO DAILY 06/08/21 06/08/21 History Current Medications: Active Medications Amlodipine Besylate (Amlodipine Besylate 5 Mg Tablet) 5 mg PO DAILY REPLACED BY [facility] Last Admin: 06/08/21 10:46 Dose: 5 mg Documented by: Aspirin (Aspirin 81 Mg Enteric Tablet) [facility] Last Admin: 06/08/21 13:10 Dose: 81 mg Documented by: Cyanocobalamin (Cyanocobalamin 1,000 Mcg Tablet) 1,000 mcg PO QAM REPLACED BY [facility] Last Admin: 06/08/21 10:45 Dose: 1,000 mcg Documented by: Folic Acid (Folic Acid 0.4 Mg Tablet) 0.8 mg PO QAM REPLACED BY [facility] Last Admin: 06/08/21 10:44 Dose: 0.8 mg Documented by: Gabapentin (Gabapentin 100 Mg Capsule) 100 mg PO BID REPLACED BY [facility] Last Admin: 06/08/21 17:24 Dose: 100 mg Documented by: Sodium Chloride (Normal Saline Iv) 1,000 mls @ 70 mls/hr IV CONT .[id number] REPLACED BY [facility] Last Admin: 06/09/21 05:35 Dose: 70 mls/hr Documented by: Isosorbide Dinitrate (Isosorbide Dinitrate 10 Mg Tablet) 30 mg PO DAILY REPLACED BY [facility] Last Admin: 06/08/21 11:07 Dose: 30 mg Documented by: Levothyroxine Sodium (Levothyroxine Sodium 75 Mcg Tablet) 75 mcg PO DAILY@0630 REPLACED BY [facility] Last Admin: 06/09/21 05:35 Dose: 75 mcg Documented by: Lisinopril (Lisinopril 20 Mg Tablet) 40 mg PO DAILY REPLACED BY [facility] Last Admin: 06/08/21 11:00 Dose: 40 mg Documented by: Loratadine (Loratadine 10 Mg Tablet) 10 mg PO DAILY REPLACED BY [facility] Last Admin: 06/08/21 10:48 Dose: 10 mg Documented by: Metoprolol Succinate (Metoprolol Succinate Ext Rel 50 Mg Tabcr) 50 mg PO DAILY REPLACED BY [facility] Last Admin: 06/08/21 17:23 Dose: 50 mg Documented by: Metronidazole (Metronidazole 0.75% Topical Gel 45 Gm) 1 applic TOPICAL Q12HR REPLACED BY [facility] Last Admin: 06/09/21 04:20 Dose: Not Given Documented by: Multivitamins Therapeutic (Multivitamins Therapeutic Tab (*Bkc)) 1 tablet PO DAILY REPLACED BY [facility] Last Admin: 06/08/21 11:06 Dose: 1 tablet Documented by: Pantoprazole Sodium (Pantoprazole 40 Mg Tablet) 40 mg PO BID REPLACED BY [facility] Last Admin: 06/08/21 17:24 Dose: 40 mg Documented by: Rosuvastatin Calcium (Rosuvastatin 10 Mg Tablet) 20 mg PO DAILY REPLACED BY [facility] Last Admin: 06/08/21 18:19 Dose: 20 mg Documented by: Tacrolimus (Tacrolimus 0.1% 30 Gm Ointment) 1 applic TOPICAL Q12HR REPLACED BY [facility] Last Admin: 06/09/21 04:20 Dose: Not Given Documented by: Vitamin D (Cholecalciferol 1,000 Units Tablet) 2,000 units PO DAILY REPLACED BY [facility] Last Admin: 06/08/21 10:44 Dose: 2,000 units Documented by: Sedation/Anesthesia: No previous sedation/anesthesia problems (including f
[2021-06-09 06:32] LABS: Hematocrit 31.3 % (42.0-52.0); Hemoglobin 10.7 g/dL (14.0-18.0); Mean Corpuscular HGB Conc 34.2 g/dl (32-36); Mean Corpuscular Hemoglobin 30.8 pg (26-34); Mean Corpuscular Volume 90.2 fl (80-100); Mean Platelet Volume 8.5 fl (7.4-10.4); Platelet Count Result 240 k/mm3 (150-375); Red Blood Count 3.47 M/mm3 (4.6-6.20); Red Cell Distribution Width 12.8 % (11.5-14.5); White Blood Count 7.1 K/mm3 (4.5-10.0)
[2021-06-09 06:47] LABS: Anion Gap 8 mmol/L (8-16); Blood Urea Nitrogen 15 mg/dL (9-20); Calcium 8.4 mg/dL (8.4-10.2); Carbon Dioxide 26 mmol/L (22-30); Chloride 106 mmol/L (98-107); Estimated CRCL calculation 48 ml/min; Estimated Glomerular Filt Rate > 60; Glucose 138 mg/dL (65-110); Potassium 3.5 mmol/L (3.4-5.0); Sodium 140 mmol/L (137-145)
--- NOTE | 2021-06-09 07:06 | PC.NURSE ---
off the floor for cardiac cath.
--- NOTE | 2021-06-09 07:29 | WPDCARDPROC ---
Cardiac Cath Procedure Note Date of procedure:: 06/09/21 Performing physician:: Dimas Bauer MD Indication:: Interscapular back pain? Myocardial ischemia Brief clinical history:: this is an 81-year-old man with a history of hypertension who entered the hospital with some intermittent scapular pain radiating into the right arm. He recently had a stress test as an outpatient that was mildly abnormal. In this setting and angiogram has been recommended. On admission to the hospital acute coronary syndrome has been ruled out. Procedure Procedure performed:: Left ventriculogram coronary angiogram Sedation/Medication given:: fentanyl 50 mg Versed 2 mg case start time 7:08 a.m. case end time 7:25 a.m. sedation provided by Kandy Diane RN, trained observer Access site:: right femoral artery Estimated blood loss:: 15 cc Procedure note:: patient was brought to the cardiac catheterization lab in the postabsorptive state the right femoral triangle was prepared draped in the usual fashion. Anesthesia was provided with 1% lidocaine infiltrated locally. Using the modified Seldinger technique a 5 Montenegrin sheath was placed into the femoral artery. After this left heart catheterization was carried out. A 5 [place]grin angled pigtail catheter was used to measure left-sided hemodynamics and injected LV g in the ROJAS projection. After this I used a 5 [place]grin FL4 catheter to engage and inject the left coronary artery. A 5 [place]grin JR4 catheter was then used to engage and inject the right coronary artery. The cineangiograms were then reviewed and the case was terminated. An angiogram was done of the femoral artery through the sheath after which I elected to have the sheath removed manually. The patient tolerated procedure well there were no apparent complications he left the [facility] with no evidence of a groin hematoma. Findings:: Hemodynamics: Central aortic pressure was 176 over 66 left ventricle 176/0 end-diastolic 16 is no gradient on pullback across the aortic valve. Left ventricle: The LV is normal in size all segments contract appropriately the global ejection fraction I visually estimate to be 50-55% there were no regional wall motion abnormalities. Left main coronary artery is nicely patent the left anterior descending is a medium caliber vessel extending down to the apex there is minimal luminal plaquing with mild atherosclerosis in the proximal segment of the LAD this represents no more than about 30% stenosis. The circumflex is a medium caliber vessel giving rise to the marginal branches. The circumflex system is smooth and angiographically normal in appearance. The right coronary artery is dominant to the posterior circulation the right coronary artery is remarkable for about 20-30% stenosis just after the ostium. The rest of the vessel is angiographically unremarkable. Conclusion:: 1. Right coronary dominant circulation with minimal atherosclerosis in the proximal LAD and proximal RCA. No flow-limiting or clinically significant disease is identified. 2. Normal left ventricular systolic function 3. systemic hypertension 4. today's findings with the to the conclusion that the scapular back pain and right arm pain for with which he presented is not related to myocardial ischemia and recent stress testing is a false positive. Dimas Bauer MD [facility]
[2021-06-09] MEDS: SODIUM CHLORIDE 0.9% IV 1,000 ML 125 ML IV CONT (08:15)
--- NOTE | 2021-06-09 09:27 | SUR.PHASEII ---
Report given to IMU RN.
[2021-06-09] MEDS: amLODIPine BESYLATE 5 MG TABLET PO (10:32)
[2021-06-09] MEDS: CHOLECALCIFEROL 1,000 UNITS TABLET 2000 UNITS PO (10:33)
[2021-06-09] MEDS: CYANOCOBALAMIN 1,000 MCG TABLET 1000 MCG PO (10:34)
[2021-06-09] MEDS: FOLIC ACID 0.4 MG TABLET 0.8 MG PO (10:34)
[2021-06-09] MEDS: lisinopriL 20 MG TABLET 40 MG PO (10:35)
[2021-06-09] MEDS: GABAPENTIN 100 MG CAPSULE PO (10:35)
[2021-06-09] MEDS: ISOSORBIDE DINITRATE 10 MG TABLET 30 MG PO (10:35)
[2021-06-09] MEDS: LORATADINE 10 MG TABLET PO (10:36)
[2021-06-09] MEDS: metroNIDAZOLE 0.75% TOPICAL GEL 45 GM 1 APPLIC TOPICAL ×2 (10:36→20:46)
[2021-06-09] MEDS: PANTOPRAZOLE 40 MG TABLET PO ×2 (10:37→17:05)
[2021-06-09] MEDS: MULTIVITAMINS THERAPEUTIC TAB (*BKC) 1 TABLET PO (10:37)
[2021-06-09] MEDS: ASPIRIN 81 MG ENTERIC TABLET PO (10:37)
[2021-06-09 12:15] LABS: Hematocrit 28.5 % (42.0-52.0); Hemoglobin 9.8 g/dL (14.0-18.0)
[2021-06-09 12:59] LABS: Glucose Point of Care 137 mg/dl (65-105)
[2021-06-09 14:36] LABS: Hemoglobin 11.2 g/dL (14.0-18.0)
--- NOTE | 2021-06-09 15:07 | PM.IMPN ---
Progress Note: A&P Assessment and Plan (1) Chest pain: Qualifiers: Chest pain type: unspecified Qualified Code(s): R07.9 - Chest pain, unspecified Code(s): R07.9 - Chest pain, unspecified Status: Acute Assessment and Plan: -Atypical -ECG with no ischemic changes -Echo w/ normal systolic function EF 65-70%. Moderate LVH. Diastolic grade 1 dysfunction. Left ventricular chamber mildly enlarged. Left atrial chamber mildly enlarged. Mild mitral valve regurgitation. Mild pulmonic regurgitation. -Serial trop x3 negative -CTA w/ mild aortic athersclerosis, no aneurysm or dissection. No PE. -Cardiology consulted, had cardiac cath this morning which was clear. (2) Hypotension: Code(s): I95.9 - Hypotension, unspecified Status: Acute Assessment and Plan: -Pt continues to have hypotensive episodes as low as 58/38 w/ associated nausea, diaphoresis, sometimes chest pain -Vasovagal? -Not orthostatic as the episodes happen at rest in bed -Cortisol and TSH WNL -Normal cardiac cath, incision dry no bleeding, H/H stable no signs of retroperitoneal bleed -Check MRI brain and he continues to complain of posterior headache. Did also have blurry vision however it was during his hypotensive episode. -Check carotid US (3) Dizziness, nonspecific: Code(s): R42 - Dizziness and giddiness Status: Acute Assessment and Plan: -Likely related to above, has dizziness with his hypotensive episodes (4) Essential (primary) hypertension: Code(s): I10 - Essential (primary) hypertension Status: Acute Assessment and Plan: -Continue home meds (5) Gastro-esophageal reflux disease without esophagitis: Code(s): K21.9 - Gastro-esophageal reflux disease without esophagitis Status: Acute Assessment and Plan: Continue PPI (6) Type 2 diabetes mellitus without complication, with no history of insulin use: Code(s): E11.9 - Type 2 diabetes mellitus without complications Status: Acute Assessment and Plan: -Holding metformin -Insulin sliding scale as needed (7) Neuropathy: Code(s): G62.9 - Polyneuropathy, unspecified Status: Acute Assessment and Plan: Hold gabapentin while investigating hypotension Subjective Date/time seen: 06/09/21 15:07 Interval history: 81-year-old male with past medical history significant for hypertension, dyslipidemia, degenerative joint disease, admitted to hospital for chest pain and hypotension. When I walked into the patient's room today he was just starting to have one of his hypotensive episodes. He complained of feeling clammy, lightheaded, blurry vision, and was diaphretic. We got a stat blood pressure and it was 65/37. Manual repeat was 58/38. 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 Opened IVF wide open and placed patient in Trendelenburg. He slowly showed improvement with pressures going back up steadily. He did not lose consciousness and he was not having chest pain at the time of his incident today. Review of Systems Review of Systems: General: Denies fevers, chills, bodyaches Eyes: + vision changes, denies eye pain ENT: Denies nasal congestion or sore throat Respiratory: Denies cough or shortness of breath Cardiovascular: Denies chest pain, palpitations, +lower extremity edema Gastrointestinal: Denies abdominal pain, vomiting, or diarrhea, +nausea Genitourinary: Denies dysuria or urinary frequency Musculoskeletal: +bilateral knee pain, +bilateral leg cramps Neurological: + headache, denies paraesthesias or motor weakness, +dizziness, no LOC Integumentary: Denies rash or other skin lesions Exam Narrative: General: Pale, diaphoretic, reclined in bed Eyes: PERRL, no scleral icterus HEENT: NCAT, external ears normal, MMM Respiratory: No respiratory distress, Lungs CTA bilaterally, no wheezing Cardiovascular: RRR, no murmur Abdominal: Soft, nontender, non dis
[2021-06-09 16:57] LABS: Glucose Point of Care 191 mg/dl (65-105)
[2021-06-09] MEDS: ROSUVASTATIN 10 MG TABLET 20 MG PO (17:05)
[2021-06-09 18:03] LABS: Hematocrit 32.9 % (42.0-52.0); Hemoglobin 11.3 g/dL (14.0-18.0)
[2021-06-09 20:40] LABS: Glucose Point of Care 174 mg/dl (65-105)
[2021-06-09] MEDS: TACROLIMUS 0.1% 30 GM OINTMENT 1 APPLIC TOPICAL (20:46)
[2021-06-10] VITALS (18 sets, daily range): BP systolic 132–171; BP diastolic 56–70; PULSE 54–150; RESP 15–20; TEMP 36.1–36.7; O2SAT 95–99
[2021-06-10 04:54] LABS: Basophils Percent Auto 0.4 % (0.2-1.2); Eosinophils Absolute Auto 0.1 K/mm3 (0-0.3); Eosinophils Percent Auto 1.4 % (0-4.4); Hematocrit 30.7 % (42.0-52.0); Hemoglobin 10.5 g/dL (14.0-18.0); Immature Granulocyte Absolute 0.02 K/mm3 (0.00-0.031); Immature Granulocyte Percent A 0.2 % (0-0.5); Lymphocytes Absolute Auto 1.13 K/mm3 (0.9-3.2); Lymphocytes Percent Auto 13.4 % (18.3-44.2); Mean Corpuscular HGB Conc 34.2 g/dl (32-36); Mean Corpuscular Hemoglobin 31.3 pg (26-34); Mean Corpuscular Volume 91.6 fl (80-100); Mean Platelet Volume 8.2 fl (7.4-10.4); Monocytes Absolute Auto 0.9 K/mm3 (0.1-0.6); Monocytes Percent Auto 10.4 % (2.6-8.5); Neutrophils Absolute Auto 6.3 K/mm3 (1.3-6.7); Neutrophils Percent Auto 74.2 % (45.5-73.1); Platelet Count Result 193 k/mm3 (150-375); Red Blood Count 3.35 M/mm3 (4.6-6.20); Red Cell Distribution Width 12.9 % (11.5-14.5); White Blood Count 8.4 K/mm3 (4.5-10.0)
[2021-06-10 05:13] LABS: Anion Gap 7 mmol/L (8-16); Blood Urea Nitrogen 13 mg/dL (9-20); Calcium 8.2 mg/dL (8.4-10.2); Carbon Dioxide 28 mmol/L (22-30); Chloride 107 mmol/L (98-107); Estimated CRCL calculation 43 ml/min; Estimated Glomerular Filt Rate > 60; Glucose 135 mg/dL (65-110); Potassium 3.4 mmol/L (3.4-5.0); Sodium 142 mmol/L (137-145)
[2021-06-10] MEDS: LEVOTHYROXINE SODIUM 75 MCG TABLET PO (05:41)
[2021-06-10] MEDS: lisinopriL 20 MG TABLET 40 MG PO (08:14)
[2021-06-10] MEDS: CHOLECALCIFEROL 1,000 UNITS TABLET 2000 UNITS PO (08:15)
[2021-06-10] MEDS: CYANOCOBALAMIN 1,000 MCG TABLET 1000 MCG PO (08:15)
[2021-06-10] MEDS: LORATADINE 10 MG TABLET PO (08:15)
[2021-06-10] MEDS: MULTIVITAMINS THERAPEUTIC TAB (*BKC) 1 TABLET PO (08:16)
[2021-06-10] MEDS: amLODIPine BESYLATE 5 MG TABLET PO (08:16)
[2021-06-10] MEDS: METOPROLOL SUCCINATE EXT REL 50 MG TABCR PO (08:16)
[2021-06-10] MEDS: FOLIC ACID 0.4 MG TABLET 0.8 MG PO (08:16)
[2021-06-10] MEDS: ASPIRIN 81 MG ENTERIC TABLET PO (08:16)
[2021-06-10] MEDS: PANTOPRAZOLE 40 MG TABLET PO ×2 (08:17→18:24)
[2021-06-10] MEDS: metroNIDAZOLE 0.75% TOPICAL GEL 45 GM 1 APPLIC TOPICAL ×2 (08:18→20:04)
[2021-06-10] MEDS: TACROLIMUS 0.1% 30 GM OINTMENT 1 APPLIC TOPICAL (08:19)
--- NOTE | 2021-06-10 11:33 | PM.PNCARD ---
Progress Note: A&P Assessment and Plan (1) Chest pain: Qualifiers: Chest pain type: unspecified Qualified Code(s): R07.9 - Chest pain, unspecified Code(s): R07.9 - Chest pain, unspecified Status: Acute Assessment and Plan: No significant coronary disease noted. Groin is stable. (2) Essential (primary) hypertension: Code(s): I10 - Essential (primary) hypertension Status: Acute Assessment and Plan: Continue amlodipine, lisinopril (3) Abnormal stress test: Code(s): R94.39 - Abnormal result of other cardiovascular function study Status: Acute Assessment and Plan: Previous evidence of inferior apical kinesis on stress test from June 2020 (4) Hyperlipidemia associated with type 2 diabetes mellitus: Code(s): E11.69 - Type 2 diabetes mellitus with other specified complication; E78.5 - Hyperlipidemia, unspecified Status: Acute Assessment and Plan: Reduce rosuvastatin to home dose regimen (5) PND (paroxysmal nocturnal dyspnea): Code(s): R06.00 - Dyspnea, unspecified Status: Acute Assessment and Plan: Probably related to sleep apnea. (6) Hypotension: Code(s): I95.9 - Hypotension, unspecified Status: Acute Assessment and Plan: Episodic hypotension. Possibly related to a vasodepressor component of vasovagal syndrome. He does have significant presyncope at that time. Episode yesterday was significant and to the point that his blood pressure dropped to 50 systolic. Gradual improvement. Will discontinue gabapentin. Will stop isosorbide. Will continue metoprolol. Other medications including lisinopril and amlodipine may need to be discontinued also but there is likelihood that his blood pressure will then markedly increase. Will see how he responds with stopping the gabapentin and isosorbide. Subjective Date/time seen: 06/10/21 11:33 Interval history: 81-year-old male with past medical history significant for hypertension, dyslipidemia, degenerative joint disease, admitted to hospital for chest pain and hypotension. Date of service 06/10/2021: She still has had a couple of episodes of dizziness even today. No chest pain, shortness of breath. No syncope. Episode of yesterday noted and I was present. He did become markedly hypotense, diaphoretic. Blood pressure gradually improved with IV fluids and Trendelenburg. Over period of 15-30 minutes, blood pressure gradually increased. Heart rate at the time was in the 50s. Review of Systems Review of Systems: All systems reviewed & are unremarkable except as noted in HPI and below Constitutional: Constitutional: Denies fatigue, Denies headache(s) and Denies weakness Eyes: Eyes: Denies blurry vision ENT: Reports Normal hearing present, Denies headache(s), Denies lip swelling and Denies neck pain Cardiovascular: Cardiovascular: Reports chest pain and Reports dyspnea Respiratory: Respiratory: Reports dyspnea Gastrointestinal: Gastrointestinal: Denies abdominal pain Genitourinary: Genitourinary: Denies dysuria and Denies urinary frequency Musculoskeletal: Musculoskeletal: Denies back pain and Denies neck pain Integumentary/Breasts: Skin/Breast: Denies dry skin and Denies unusual bruising Neurologic: Reports Normal hearing present, Denies confusion, Denies headache(s) and Denies weakness Psychiatric: Psychiatric: Denies anxiety and Denies confusion Endocrine: Endocrine: Denies fatigue Hematologic/Lymphatic: Hematologic/Lymphatic: Denies easy bleeding Allergic/Immunologic: Allergic/Immunologic: Denies GI upset with certain foods and Denies lip swelling Exam Narrative: Alert oriented. Appears to be in no acute distress. Appears stated age Const: General: comfortable and no acute distress; No confusion Orientation/consciousness: No confusion HENMT: General nose exam: Normal nares present Eyes: Sclera: sclerae normal Neck: Neck:
--- NOTE | 2021-06-10 14:36 | PC.NURSE ---
On 06/10/21, the student, [Juanis Thompson], provided care and completed [facility] documentation on this patient. I have reviewed the student's documentation and agree with the findings.
--- NOTE | 2021-06-10 16:20 | PM.IMPN ---
Progress Note: A&P Assessment and Plan (1) Chest pain: Qualifiers: Chest pain type: unspecified Qualified Code(s): R07.9 - Chest pain, unspecified Code(s): R07.9 - Chest pain, unspecified Status: Acute Assessment and Plan: Resolved -Atypical -ECG with no ischemic changes -Echo w/ normal systolic function EF 65-70%. Moderate LVH. Diastolic grade 1 dysfunction. Left ventricular chamber mildly enlarged. Left atrial chamber mildly enlarged. Mild mitral valve regurgitation. Mild pulmonic regurgitation. -Serial trop x3 negative -CTA w/ mild aortic athersclerosis, no aneurysm or dissection. No PE. -Negative cardiac cath -Cardiology following (2) Hypotension: Code(s): I95.9 - Hypotension, unspecified Status: Acute Assessment and Plan: -Pt continues to have hypotensive episodes as low as 58/38 w/ associated nausea, diaphoresis, sometimes chest pain -Vasovagal? -Not orthostatic as the episodes happen at rest in bed -Cortisol and TSH WNL -Normal cardiac cath, incision dry no bleeding, H/H stable no signs of retroperitoneal bleed -MRI brain unremarkable -Carotid US unremarkable -Per cardiology: discontinue gabapentin and isosorbide -Will check orthostatics again -Continue to monitor (3) Dizziness, nonspecific: Code(s): R42 - Dizziness and giddiness Status: Acute Assessment and Plan: -Likely related to above, has dizziness with his hypotensive episodes (4) Essential (primary) hypertension: Code(s): I10 - Essential (primary) hypertension Status: Acute Assessment and Plan: -Continue home meds (5) Gastro-esophageal reflux disease without esophagitis: Code(s): K21.9 - Gastro-esophageal reflux disease without esophagitis Status: Acute Assessment and Plan: Continue PPI (6) Type 2 diabetes mellitus without complication, with no history of insulin use: Code(s): E11.9 - Type 2 diabetes mellitus without complications Status: Acute Assessment and Plan: -Holding metformin -Insulin sliding scale as needed (7) Neuropathy: Code(s): G62.9 - Polyneuropathy, unspecified Status: Acute Assessment and Plan: Hold gabapentin while investigating hypotension Subjective Date/time seen: 06/10/21 16:20 Interval history: 81-year-old male with past medical history significant for hypertension, dyslipidemia, degenerative joint disease, admitted to hospital for chest pain and hypotension. Reports intermittent dizziness still. No chest pain or shortness of breath. No syncope. C/o posterior headache and L shoulder pain worse w/ movement. Review of Systems Review of Systems: General: Denies fevers, chills, bodyaches Eyes: denies vision changes, denies eye pain ENT: Denies nasal congestion or sore throat Respiratory: Denies cough or shortness of breath Cardiovascular: Denies chest pain, palpitations Gastrointestinal: Denies abdominal pain, vomiting, or diarrhea Genitourinary: Denies dysuria or urinary frequency Musculoskeletal: +bilateral knee pain, +bilateral leg cramps Neurological: + headache, denies paraesthesias or motor weakness, +dizziness, no LOC Integumentary: Denies rash or other skin lesions Exam Narrative: General: No acute distress, non toxic appearing Eyes: PERRL, no scleral icterus, EOMI HEENT: NCAT, external ears normal, MMM Respiratory: No respiratory distress, Lungs CTA bilaterally, no wheezing Cardiovascular: RRR, no murmur Abdominal: Soft, nontender, non distended, no rebound or guarding Musculoskeletal: Moves all 4 extremities, +1 pedal edema, DP/PT pulses 2+ Neurological: A/Ox3, speech normal, no facial asymmetry Skin: Warm, dry, no rashes Psychiatric: Normal affect, normal mood Objective Data Vital Signs Vital Signs: Vital Signs - 24 hr 06/09/21 16:26 06/09/21 18:00 06/09/21 20:00 Temperature 97.8 F 98.2 F Pulse Rate 71 75 7
[2021-06-11] VITALS (18 sets, daily range): BP systolic 135–165; BP diastolic 57–72; PULSE 51–70; RESP 16–20; TEMP 36.1–36.8; O2SAT 96–100
[2021-06-11 04:42] LABS: Hematocrit 30.7 % (42.0-52.0); Hemoglobin 10.5 g/dL (14.0-18.0); Mean Corpuscular HGB Conc 34.2 g/dl (32-36); Mean Corpuscular Volume 90.6 fl (80-100); Mean Platelet Volume 8.6 fl (7.4-10.4); Platelet Count Result 208 k/mm3 (150-375); Red Blood Count 3.39 M/mm3 (4.6-6.20); Red Cell Distribution Width 12.5 % (11.5-14.5); White Blood Count 8.1 K/mm3 (4.5-10.0)
[2021-06-11 05:04] LABS: Anion Gap 6 mmol/L (8-16); Blood Urea Nitrogen 17 mg/dL (9-20); Calcium 8.6 mg/dL (8.4-10.2); Carbon Dioxide 26 mmol/L (22-30); Chloride 107 mmol/L (98-107); Estimated CRCL calculation 43 ml/min; Estimated Glomerular Filt Rate > 60; Glucose 135 mg/dL (65-110); Potassium 3.5 mmol/L (3.4-5.0); Sodium 139 mmol/L (137-145)
[2021-06-11] MEDS: LEVOTHYROXINE SODIUM 75 MCG TABLET PO (06:15)
[2021-06-11] MEDS: METOPROLOL SUCCINATE EXT REL 50 MG TABCR PO (09:38)
[2021-06-11] MEDS: CHOLECALCIFEROL 1,000 UNITS TABLET 2000 UNITS PO (09:39)
[2021-06-11] MEDS: MULTIVITAMINS THERAPEUTIC TAB (*BKC) 1 TABLET PO (09:40)
[2021-06-11] MEDS: ASPIRIN 81 MG ENTERIC TABLET PO (09:41)
[2021-06-11] MEDS: CYANOCOBALAMIN 1,000 MCG TABLET 1000 MCG PO (09:42)
[2021-06-11] MEDS: FOLIC ACID 0.4 MG TABLET 0.8 MG PO (09:42)
[2021-06-11] MEDS: lisinopriL 20 MG TABLET 40 MG PO (09:43)
[2021-06-11] MEDS: amLODIPine BESYLATE 5 MG TABLET PO (09:44)
[2021-06-11] MEDS: PANTOPRAZOLE 40 MG TABLET PO ×2 (09:44→18:18)
[2021-06-11] MEDS: LORATADINE 10 MG TABLET PO (09:45)
[2021-06-11] MEDS: metroNIDAZOLE 0.75% TOPICAL GEL 45 GM 1 APPLIC TOPICAL ×2 (09:49→20:38)
--- NOTE | 2021-06-11 11:09 | PM.PNCARD ---
Progress Note: A&P Additional Plan 81-year-old man with: Angiographically modest coronary artery disease as described in the catheterization note from Monday. He continues to have episodes of abrupt hypotension without any significant arrhythmias at the time. His isosorbide has appropriately been stopped since he does not have any significant occlusive coronary disease. Unrelated to this the patient wishes to not take rosuvastatin so I will discontinue that as well. If he has ongoing episodes of problematic hypotension I would stop hips amlodipine next. He is on a modest dose of that. No additional cardiac recommendations at this time. Will continue observe for subsequent episodes of hypotension Dimas Bauer MD [facility] Subjective Date/time seen: Date of service: 06/11/21 11:09 Interval history: 81-year-old male with past medical history significant for hypertension, dyslipidemia, degenerative joint disease, admitted to hospital for chest pain and hypotension. Date of service 06/10/2021: She still has had a couple of episodes of dizziness even today. No chest pain, shortness of breath. No syncope. Episode of yesterday noted and I was present. He did become markedly hypotense, diaphoretic. Blood pressure gradually improved with IV fluids and Trendelenburg. Over period of 15-30 minutes, blood pressure gradually increased. Heart rate at the time was in the 50s. Date of service 06/11/2021: The patient is asymptomatic today and feels well. Long conversation with the patient and his about the episodes of abrupt hypotension probably related to vasodepressor syncope. His isosorbide and gabapentin have been stopped. No events since then or today so far. The patient also wanted to discuss his anti-lipid therapy. He does not wish to take a statin because the rosuvastatin even at the low-dose still causes muscle and joint pain. Exam Narrative: Alert oriented. Appears to be in no acute distress. Appears stated age Const: General: comfortable and no acute distress; No confusion Orientation/consciousness: No confusion HENMT: General nose exam: Normal nares present Eyes: Sclera: sclerae normal Neck: Neck: supple and no JVD Chest: Other: No reproducible chest wall pain to palpation Resp: Auscultation: clear to auscultation bilaterally Cardio: Rate: regular rate Rhythm: regular rhythm Other: Right groin is free of hematoma ecchymosis or bruit GI: Auscultation: normal bowel sounds Skin: General skin exam: normal color and no erythema Neuro: General: No confusion Cranial nerves: Yes Normal hearing present Cognition (Neuro): normal cognition Speech: normal speech Extrem: General: edema (1+ bilateral extremity swelling) Psych: Mental Status: mental status grossly normal Objective Data Vital Signs Vital Signs: Vital Signs - 24 hr 06/10/21 12:00 06/10/21 14:00 06/10/21 15:29 Temperature 36.6 C 36.2 C L Pulse Rate 65 62 65 Respiratory Rate 18 18 Blood Pressure 150/56 H 171/70 H Pulse Oximetry 98 99 06/10/21 16:00 06/10/21 18:00 06/10/21 19:39 Temperature 36.1 C L Pulse Rate 57 L 66 61 Respiratory Rate 16 Blood Pressure 132/68 Pulse Oximetry 99 06/10/21 20:00 06/10/21 22:00 06/10/21 23:42 Temperature 36.6 C Pulse Rate 64 54 L 62 Respiratory Rate 15 Blood Pressure 143/57 H Pulse Oximetry 96 06/11/21 00:00 06/11/21 02:00 06/11/21 04:00 Temperature 36.4 C L Pulse Rate 57 L 56 L 59 L Respiratory Rate 16 Blood Pressure 136/57 L Pulse Oximetry 96 06/11/21 06:00 06/11/21 08:00 06/11/21 08:01 Temperature 36.8 C 36.8 C Pulse Rate 51 L 63 63 Respiratory Rate 16 16 Blood Pressure 153/64 H 144/59 H Pulse Oximetry 100 100 06/11/21 08:02 06/11/21 08:40 06/11/21 08:41 Temperature 36.8 C 36.8 C Pulse Rate 63 58 L Respiratory Rate 16 16 Blood Pressure 148/65 H 153/64 H 144/59 H Pulse Oximetry 100 100 06/11/21 08:42 06/11/21 09:38
--- NOTE | 2021-06-11 14:44 | PC.NURSE ---
On 06/11/21, the student, [Tamara Bone], provided care and completed [facility] documentation on this patient. I have reviewed the student's documentation and agree with the findings.
--- NOTE | 2021-06-11 14:52 | PM.IMPN ---
Progress Note: A&P Assessment and Plan (1) Chest pain: Qualifiers: Chest pain type: unspecified Qualified Code(s): R07.9 - Chest pain, unspecified Code(s): R07.9 - Chest pain, unspecified Status: Acute Assessment and Plan: Resolved -Atypical -ECG with no ischemic changes -Echo w/ normal systolic function EF 65-70%. Moderate LVH. Diastolic grade 1 dysfunction. Left ventricular chamber mildly enlarged. Left atrial chamber mildly enlarged. Mild mitral valve regurgitation. Mild pulmonic regurgitation. -Serial trop x3 negative -CTA w/ mild aortic athersclerosis, no aneurysm or dissection. No PE. -Negative cardiac cath -Cardiology following (2) Hypotension: Code(s): I95.9 - Hypotension, unspecified Status: Acute Assessment and Plan: -Pt continues to have hypotensive episodes as low as 58/38 w/ associated nausea, diaphoresis, sometimes chest pain -Vasovagal? -Not orthostatic as the episodes happen at rest in bed -Cortisol and TSH WNL -Normal cardiac cath, incision dry no bleeding, H/H stable no signs of retroperitoneal bleed -MRI brain unremarkable -Carotid US unremarkable -Per cardiology: discontinue gabapentin and isosorbide. Pt also dos not want to be on rosuvastatin so that was also discontinued. Would consider stopping amlodipine next if he continues to have episodes. Dr. Bauer would like to observe pt overnight to monitor for any additional episodes and potentially dc home tomorrow. (3) Dizziness, nonspecific: Code(s): R42 - Dizziness and giddiness Status: Acute Assessment and Plan: -Likely related to above, has dizziness with his hypotensive episodes (4) Essential (primary) hypertension: Code(s): I10 - Essential (primary) hypertension Status: Acute Assessment and Plan: -Continue home meds (5) Gastro-esophageal reflux disease without esophagitis: Code(s): K21.9 - Gastro-esophageal reflux disease without esophagitis Status: Acute Assessment and Plan: Continue PPI (6) Type 2 diabetes mellitus without complication, with no history of insulin use: Code(s): E11.9 - Type 2 diabetes mellitus without complications Status: Acute Assessment and Plan: -Holding metformin -Insulin sliding scale as needed (7) Neuropathy: Code(s): G62.9 - Polyneuropathy, unspecified Status: Acute Assessment and Plan: Gabapentin discontinued secondary to hypotension Subjective Date/time seen: 06/11/21 14:52 Interval history: 81-year-old male with past medical history significant for hypertension, dyslipidemia, degenerative joint disease, admitted to hospital for chest pain and hypotension. Today he is feeling much better. No dizziness, headache, LE edema. He did not have any hypotensive episodes yesterday and has not had any today. No cp or sob. Review of Systems Review of Systems: General: Denies fevers, chills, bodyaches Eyes: denies vision changes, denies eye pain ENT: Denies nasal congestion or sore throat Respiratory: Denies cough or shortness of breath Cardiovascular: Denies chest pain, palpitations Gastrointestinal: Denies abdominal pain, vomiting, or diarrhea Genitourinary: Denies dysuria or urinary frequency Musculoskeletal: No joint pain Neurological: no headache, denies paraesthesias or motor weakness, no dizziness, no LOC Integumentary: Denies rash or other skin lesions Exam Narrative: General: No acute distress, non toxic appearing Eyes: PERRL, no scleral icterus, EOMI HEENT: NCAT, external ears normal, MMM Respiratory: No respiratory distress, Lungs CTA bilaterally, no wheezing Cardiovascular: RRR, no murmur Abdominal: Soft, nontender, non distended, no rebound or guarding Musculoskeletal: Moves all 4 extremities, no pedal edema Neurological: A/Ox3, speech normal, no facial asymmetry Skin: Warm, dry, no rashes Psychiatric: Nancy
--- NOTE | 2021-06-11 18:36 | PC.NURSE ---
This patient, Loy Gonzalez, was received from IMU on 06/11/21 at 1836. Patient/family oriented to unit policies and routines
[2021-06-11] MEDS: TACROLIMUS 0.1% 30 GM OINTMENT 1 APPLIC TOPICAL (20:39)
[2021-06-12 00:42] VITALS: PULSE 50
[2021-06-12 01:03] VITALS: BP 164/60; PULSE 58; RESP 18; TEMP 36.7; O2SAT 99
[2021-06-12 04:00] VITALS: PULSE 58
[2021-06-12 05:32] VITALS: BP 145/63; PULSE 56; RESP 16; TEMP 36.9; O2SAT 98
[2021-06-12] MEDS: LEVOTHYROXINE SODIUM 75 MCG TABLET PO (06:58)
[2021-06-12 07:21] LABS: Basophils Percent Auto 0.4 % (0.2-1.2); Eosinophils Absolute Auto 0.2 K/mm3 (0-0.3); Eosinophils Percent Auto 1.9 % (0-4.4); Hematocrit 32.3 % (42.0-52.0); Hemoglobin 11.1 g/dL (14.0-18.0); Immature Granulocyte Absolute 0.03 K/mm3 (0.00-0.031); Immature Granulocyte Percent A 0.3 % (0-0.5); Lymphocytes Absolute Auto 1.19 K/mm3 (0.9-3.2); Lymphocytes Percent Auto 13.1 % (18.3-44.2); Mean Corpuscular HGB Conc 34.4 g/dl (32-36); Mean Corpuscular Hemoglobin 31.5 pg (26-34); Mean Corpuscular Volume 91.8 fl (80-100); Mean Platelet Volume 8.9 fl (7.4-10.4); Monocytes Absolute Auto 0.7 K/mm3 (0.1-0.6); Monocytes Percent Auto 8.2 % (2.6-8.5); Neutrophils Absolute Auto 6.9 K/mm3 (1.3-6.7); Neutrophils Percent Auto 76.1 % (45.5-73.1); Platelet Count Result 226 k/mm3 (150-375); Red Blood Count 3.52 M/mm3 (4.6-6.20); Red Cell Distribution Width 12.8 % (11.5-14.5); White Blood Count 9.1 K/mm3 (4.5-10.0)
[2021-06-12 07:35] LABS: Anion Gap 7 mmol/L (8-16); Blood Urea Nitrogen 16 mg/dL (9-20); Calcium 8.7 mg/dL (8.4-10.2); Carbon Dioxide 27 mmol/L (22-30); Chloride 103 mmol/L (98-107); Estimated CRCL calculation 49 ml/min; Estimated Glomerular Filt Rate > 60; Glucose 140 mg/dL (65-110); Potassium 3.6 mmol/L (3.4-5.0); Sodium 137 mmol/L (137-145)
[2021-06-12] MEDS: METOPROLOL SUCCINATE EXT REL 50 MG TABCR PO (08:28)
[2021-06-12] MEDS: FOLIC ACID 0.4 MG TABLET 0.8 MG PO (08:28)
[2021-06-12] MEDS: ASPIRIN 81 MG ENTERIC TABLET PO (08:28)
[2021-06-12] MEDS: lisinopriL 20 MG TABLET 40 MG PO (08:29)
[2021-06-12] MEDS: CYANOCOBALAMIN 1,000 MCG TABLET 1000 MCG PO (08:29)
[2021-06-12] MEDS: MULTIVITAMINS THERAPEUTIC TAB (*BKC) 1 TABLET PO (08:29)
[2021-06-12] MEDS: amLODIPine BESYLATE 5 MG TABLET PO (08:29)
[2021-06-12] MEDS: CHOLECALCIFEROL 1,000 UNITS TABLET 2000 UNITS PO (08:30)
[2021-06-12] MEDS: PANTOPRAZOLE 40 MG TABLET PO (08:30)
[2021-06-12] MEDS: TACROLIMUS 0.1% 30 GM OINTMENT 1 APPLIC TOPICAL (08:30)
[2021-06-12] MEDS: metroNIDAZOLE 0.75% TOPICAL GEL 45 GM 1 APPLIC TOPICAL (08:30)
[2021-06-12] MEDS: LORATADINE 10 MG TABLET PO (08:30)
--- NOTE | 2021-06-12 09:22 | PM.PNCARD ---
Progress Note: A&P Assessment and Plan (1) Chest pain: Qualifiers: Chest pain type: unspecified Qualified Code(s): R07.9 - Chest pain, unspecified Code(s): R07.9 - Chest pain, unspecified Status: Acute Assessment and Plan: No significant coronary disease noted. Groin is stable. (2) Essential (primary) hypertension: Code(s): I10 - Essential (primary) hypertension Status: Acute Assessment and Plan: Continue amlodipine, lisinopril (3) Abnormal stress test: Code(s): R94.39 - Abnormal result of other cardiovascular function study Status: Acute Assessment and Plan: Previous evidence of inferior apical kinesis on stress test from June 2020: False-positive (4) Hyperlipidemia associated with type 2 diabetes mellitus: Code(s): E11.69 - Type 2 diabetes mellitus with other specified complication; E78.5 - Hyperlipidemia, unspecified Status: Acute Assessment and Plan: Off statin (5) PND (paroxysmal nocturnal dyspnea): Code(s): R06.00 - Dyspnea, unspecified Status: Acute Assessment and Plan: Probably related to sleep apnea. (6) Hypotension: Code(s): I95.9 - Hypotension, unspecified Status: Acute Assessment and Plan: Episodic hypotension. No episodes yesterday or today (7) Hypokalemia: Code(s): E87.6 - Hypokalemia Status: Acute Assessment and Plan: KCL 40 mg p.o. x1. Additional Plan 81-year-old man with: Angiographically modest coronary artery disease as described in the catheterization note from Monday. He continues to have episodes of abrupt hypotension without any significant arrhythmias at the time. His isosorbide has appropriately been stopped since he does not have any significant occlusive coronary disease. If he has ongoing episodes of problematic hypotension I would stop hips amlodipine next. Okay for discharge as long as he has no recurrent symptoms in the interim. I have advised that he not drive to this point. If he has a sensation of dizziness or as if he may pass out, I have instructed that he sit down, laid down and get his feet up. Subjective Date/time seen: 06/12/21 09:22 Interval history: 81-year-old male with past medical history significant for hypertension, dyslipidemia, degenerative joint disease, admitted to hospital for chest pain and hypotension. Date of service 06/10/2021: She still has had a couple of episodes of dizziness even today. No chest pain, shortness of breath. No syncope. Episode of yesterday noted and I was present. He did become markedly hypotense, diaphoretic. Blood pressure gradually improved with IV fluids and Trendelenburg. Over period of 15-30 minutes, blood pressure gradually increased. Heart rate at the time was in the 50s. Date of service 06/11/2021: The patient is asymptomatic today and feels well. Long conversation with the patient and his about the episodes of abrupt hypotension probably related to vasodepressor syncope. His isosorbide and gabapentin have been stopped. No events since then or today so far. The patient also wanted to discuss his anti-lipid therapy. He does not wish to take a statin because the rosuvastatin even at the low-dose still causes muscle and joint pain. Date of service 06/12/2021: No symptomatic events yesterday or this morning. Feels okay. No chest pain, shortness of breath, groin pain, syncope or presyncope Review of Systems Review of Systems: All systems reviewed & are unremarkable except as noted in HPI and below Constitutional: Constitutional: Denies fatigue, Denies headache(s) and Denies weakness Eyes: Eyes: Denies blurry vision ENT: Reports Normal hearing present, Denies headache(s), Denies lip swelling and Denies neck pain Cardiovascular: Cardiovascular: Reports chest pain and Reports dyspnea Respiratory: Respiratory: Reports dyspnea Gastrointestinal: Gastrointestinal
[2021-06-12 10:00] VITALS: BP 146/61; PULSE 63; RESP 16; TEMP 36.1; O2SAT 98
--- NOTE | 2021-06-12 10:31 | PM.DS ---
DS: Admitting Diagnosis Discharge Date 06/12/21 Admitting Diagnosis chest pain DS: Discharge Diagnosis Discharge Diagnosis (1) Chest pain: Qualifiers: Chest pain type: unspecified Qualified Code(s): R07.9 - Chest pain, unspecified Code(s): R07.9 - Chest pain, unspecified Status: Acute Assessment and Plan: Resolved -Atypical -ECG with no ischemic changes -Echo w/ normal systolic function EF 65-70%. Moderate LVH. Diastolic grade 1 dysfunction. Left ventricular chamber mildly enlarged. Left atrial chamber mildly enlarged. Mild mitral valve regurgitation. Mild pulmonic regurgitation. -Serial trop x3 negative -CTA w/ mild aortic athersclerosis, no aneurysm or dissection. No PE. -Negative cardiac cath -Per cardiology continue aspirin 81 mg daily -Will follow up outpatient with cardiology (2) Hypotension: Code(s): I95.9 - Hypotension, unspecified Status: Acute Assessment and Plan: -Pt with transient hypotensive episodes as low as 58/38 w/ associated nausea, diaphoresis, sometimes chest pain -Vasovagal? -Not orthostatic as the episodes here have happened at rest in bed -Cortisol and TSH WNL -Normal cardiac cath, incision dry no bleeding, H/H stable no signs of retroperitoneal bleed -MRI brain unremarkable -Carotid US unremarkable -Per cardiology: discontinue gabapentin and isosorbide. Pt also does not want to be on rosuvastatin so that was also discontinued. Would consider stopping amlodipine next if he continues to have episodes. Per Dr. Thomason patient is stable for discharge with outpatient cardiology follow up. He also advised no driving and if he has the sensation of dizziness or impending episode he should lay down and put his feet up. -I also recommended that patient follow up with a neurologist on an outpatient basis to address possible autonomic dysfunction or early Parkinson's disease/Lewy body dementia as hypotension can occur prior to onset of neurocognitive symptoms. (3) Dizziness, nonspecific: Code(s): R42 - Dizziness and giddiness Status: Acute Assessment and Plan: -Likely related to above, has dizziness with his hypotensive episodes (4) Essential (primary) hypertension: Code(s): I10 - Essential (primary) hypertension Status: Acute Assessment and Plan: -See above for adjustments in medication per cardiology (5) Gastro-esophageal reflux disease without esophagitis: Code(s): K21.9 - Gastro-esophageal reflux disease without esophagitis Status: Acute Assessment and Plan: Continued PPI (6) Type 2 diabetes mellitus without complication, with no history of insulin use: Code(s): E11.9 - Type 2 diabetes mellitus without complications Status: Acute Assessment and Plan: -Held metformin in preparation for cardiac cath -Insulin sliding scale as needed while inpatient -Resume home meds on discharge (7) Neuropathy: Code(s): G62.9 - Polyneuropathy, unspecified Status: Acute Assessment and Plan: Gabapentin discontinued secondary to hypotension DS: Summary Hospital Course Reason for hospitalization: 81-year-old male with past medical history significant for hypertension, dyslipidemia, degenerative joint disease, admitted to hospital for chest pain and hypotension. Please see HPI for further details. Hospital Course: Please see above for details of hospital course. Status at Discharge Cognitive/behavioral status at discharge: stable Functional status at discharge: independent ambulation Overall status at discharge: patient is progressing back to baseline Time Spent with Patient Time attestation: Total time spent providing and/or coordinating discharge services: 35 Time spent: Greater than 30 minutes Exam Narrative: General: No acute distress, non toxic appearing Eyes: PERRL, no scleral icterus, EOMI HEENT: NCAT, external ears normal, M
== END 2021-06-12 12:45 | disposition home or self-care (01) | DRG 287 ==
LOC: ANHED 22:57 → ANHIMU 06-08 00:57 → ANH2MED 06-12 10:49 → ANHIMU 06-14 12:20
PROVIDERS: Emergency Medicine; Internal Medicine; Internal Medicine Cardiovascular Disease; Specialist; Admitting Provider Internal Medicine; Emergency Provider Emergency Medicine; PCP Internal Medicine; Visit Provider Physician Assistant
PROC: 4A023N7 Measurement of Cardiac Sampling and Pressure, Left Heart, Percutaneous Approach (ICD-10-PCS; CPT 93452; principal; 2021-06-09 07:00)
DX: R07.89 Other chest pain (principal); I95.9 Hypotension, unspecified; Z86.16 Personal history of COVID-19; K21.9 Gastro-esophageal reflux disease without esophagitis; E03.9 Hypothyroidism, unspecified; E78.49 Other hyperlipidemia; E55.9 Vitamin D deficiency, unspecified; F17.210 Nicotine dependence, cigarettes, uncomplicated; I10 Essential (primary) hypertension; E78.5 Hyperlipidemia, unspecified; M19.90 Unspecified osteoarthritis, unspecified site; Z79.84 Long term (current) use of oral hypoglycemic drugs; E11.42 Type 2 diabetes mellitus with diabetic polyneuropathy; I70.0 Atherosclerosis of aorta; G47.30 Sleep apnea, unspecified; E87.6 Hypokalemia
CPT/HCPCS: 36415; 70450; 70551; 71045; 71275; 80048; 82533; 82948; 84443; 84484; 85014; 85018; 85025; 85027; 85610; 85730; 93005; 93306; 93458; 93880; 93970; 94762; 96360; 99285; A9270; C1887; C1894; G0378; J0360; J1644; J2250; J3010; J7030; J7040; J7050; J7120; Q9967

== ENCOUNTER 2021-10-31 03:25 | Inpatient (IN) | payer MEDICARE, BC, SELFPAY ==
[2021-10-31] VITALS (37 sets, daily range): BP systolic 132–156; BP diastolic 57–84; PULSE 53–86; RESP 9–23; TEMP 36.3–36.8; O2SAT 94–100; BMI 32.1
--- NOTE | ~2021-10-31 | XR_ITS ---
EXAMINATION: XR abdomen NG/feed tube insert EXAM DATE: 10/31/2021 08:46 INDICATION: Feeding tube placement. TECHNIQUE: Frontal projection(s) of the abdomen for interpretation. Correlation is made to CT earlier same date. FINDINGS: Feeding tube tip and side-port project over gastric bubble, adequate. There is nonobstruct derek bowel gas pattern. Expected amount of colonic stool. Some contrast in renal calyces from recent i njection. Lung bases unremarkable. IMPRESSION: Feeding tube in position. Reviewed, dictated and finalized at location A. IMPRESSION: Feeding tube in position.
--- NOTE | ~2021-10-31 | XR_ITS ---
EXAMINATION: XR sm bowel follow through WS DATE: 11/01/2021 11:04 INDICATION: Small bowel obstruction. TECHNIQUE: Oral contrast was administered, and a time course of radiographs of the abdomen was obtain ed. Fluoroscopy of the small bowel was not performed. Fluoroscopy exposure time was 0 minutes. The to tania number of images was 1. COMPARISON: CT abdomen and pelvis 10/31/2021 FINDINGS: The nasogastric tube tip is in the stomach. There is a dilated loop of distal small bowel in left abd omen at a site of surgical change that may be an end-to-side anastomosis best appreciated on coronal CT images. Transit time from the stomach to proximal colon was approximately 30 minutes. IMPRESSION: 1. Nonobstructive bowel gas pattern. Reviewed, dictated and finalized at location A.
--- NOTE | ~2021-10-31 | CT_ITS ---
EXAMINATION: CT abdomen pelvis w con EXAM DATE: 10/31/2021 04:55 INDICATION: Abdominal pain, hsx of obstruction. TECHNIQUE: Spiral CT of the abdomen and pelvis was performed following intravenous injection of 100 m L Omnipaque 350. Axial, coronal and sagittal images of the abdomen and pelvis were reviewed. The do se-length product (DLP) for this examination was 653.32 mGy-cm. The exposure was tailored according to patient size (auto mA exposure control), and iterative reconstruction (ASIR) was used as additiona l dose reduction technique. Comparison is made to prior examination from 03/14/2019. FINDINGS: There is hepatic steatosis without suspicious focal lesion identified. There is a left adre nal myelolipoma measuring 1.2 cm. Spleen, pancreas are unremarkable. Gallbladder not identified, pat ient likely has had cholecystectomy. Portal and splenic veins are patent. Kidneys enhance symmetric ally. There is no hydronephrosis. Prostate measures 5 cm, mildly enlarged. Some diffuse bladder wal l thickening, could indicate chronic cystitis. Acute cystitis not excludable. Evidence of prior lapa rotomy. Small supraumbilical fat-containing hernias. The appendix is not positively visualized. There is no pericecal inflammatory change to suggest appe ndicitis. There is small bowel anastomosis material. Mild mesenteric fat stranding, some mesenteric edema and small traces of fluid. Several regions of ileum with mildly thickened wall, nonspecific en teritis and other contiguous region with a loop of small bowel distended up to 4.7 cm near an anastom osis site (similar appearance to prior study). No retroperitoneal lymphadenopathy. There is expected amount of colonic stool. No free intraperitoneal gas. The heart is normal in size. There are no pericardial or pleural effusions. The lung bases are unremarkable. There are no osteoblastic or ost eolytic lesions identified. IMPRESSION: 1. Regions of ileal wall thickening and single region of chronic dilation near an anastomosis site. Consider infectious or inflammatory enteritis. Low-grade small bowel obstruction not excludable. Mese nteric edema and mild lymphadenopathy probably reactive. 2. Left adrenal myelolipoma. 3. Mild prostatomegaly. 4. Supraumbilical fat-containing hernias. 5. Hepatic steatosis. Reviewed, dictated and finalized at location A. IMPRESSION: 1. Regions of ileal wall thickening and single region of chronic dilation near an anastomosis site. Consider infectious or inflammatory enteritis. Low-grade small bowel obstruction not excludable. Mesenteric edema and mild lymphadenopat hy probably reactive. 2. Left adrenal myelolipoma. 3. Mild prostatomegaly. 4. Supraumbilical fat-containing hernias. 5. Hepatic steatosis.
--- NOTE | ~2021-10-31 | XR_ITS ---
EXAMINATION: XR abdomen obstructive series DATE: 11/01/2021 05:37 INDICATION: Small bowel obstruction. TECHNIQUE: Upright and supine views of the abdomen on 4 radiographs were obtained. COMPARISON: CT abdomen and pelvis 10/31/2021 FINDINGS: There are no gas-filled dilated loops of small bowel. The colon is normal in caliber. No fr ee intraperitoneal gas. The nasogastric tube tip is in the stomach. There is mild atelectasis at the lung bases. IMPRESSION: 1. Nonobstructive bowel gas pattern. Reviewed, dictated and finalized at location A.
[2021-10-31 03:47] LABS: Basophils Percent Auto 0.3 % (0.2-1.2); Eosinophils Percent Auto 0.1 % (0-4.4); Hemoglobin 12.4 g/dL (14.0-18.0); Immature Granulocyte Absolute 0.05 K/mm3 (0.00-0.031); Immature Granulocyte Percent A 0.3 % (0-0.5); Lymphocytes Absolute Auto 0.89 K/mm3 (0.9-3.2); Lymphocytes Percent Auto 6.1 % (18.3-44.2); Mean Corpuscular HGB Conc 33.5 g/dl (32-36); Mean Corpuscular Hemoglobin 30.5 pg (26-34); Mean Corpuscular Volume 91.1 fl (80-100); Mean Platelet Volume 8.3 fl (7.4-10.4); Monocytes Absolute Auto 1.2 K/mm3 (0.1-0.6); Neutrophils Absolute Auto 12.4 K/mm3 (1.3-6.7); Neutrophils Percent Auto 85.2 % (45.5-73.1); Platelet Count Result 298 k/mm3 (150-375); Red Blood Count 4.06 M/mm3 (4.6-6.20); Red Cell Distribution Width 13.2 % (11.5-14.5); White Blood Count 14.5 K/mm3 (4.5-10.0)
[2021-10-31 03:57] LABS: Lactic Acid Reflex 1.4 mmol/L (0.7-2.1)
--- NOTE | 2021-10-31 04:01 | ED.ABDPAIN ---
HPI - Abdominal Pain General Chief Complaint: Abdominal Pain <Neal Pruitt MD - Last Filed: 10/31/21 21:32> Stated Complaint: Abd pain, constipation <Neal Pruitt MD - Last Filed: 10/31/21 21:32> Time Seen by Provider: 10/31/21 03:33 <Neal Pruitt MD - Last Filed: 10/31/21 21:32> Source: patient and family <Neal Pruitt MD - Last Filed: 10/31/21 21:32> History of Present Illness HPI narrative: 81-year-old male presented emerge department for evaluation of increased abdominal pain with associated nausea. Patient states that approximately noon he began having increased abdominal pressure. Patient states that the pain worsened throughout the day and at 4 PM he began having some dry heaves and worsening pain. Patient has not had a sufficient bowel movement and is not passing flatus. Patient does have a significant abdominal surgical history including diverticulitis and colostomy with reversal in 1982. Patient has also had approximately 7 hernia repairs. Patient also does have a prior history of small bowel obstruction. <Neal Pruitt MD - Last Filed: 10/31/21 21:32> Related Data Home Medications: Home Medications Medication Instructions Recorded Confirmed metronidazole 0.75 % topical gel 1 applic TOPICAL BID 01/03/20 10/31/21 multivitamin 1 cap PO 1200 04/29/20 10/31/21 metoprolol succinate 50 mg 50 mg PO 1700 11/02/20 10/31/21 tablet,extended release 24 hr mecobalamin (vitamin B12) 1,000 1,000 mcg PO 1200 11/03/20 10/31/21 mcg disintegrating tablet,sublingual loratadine 10 mg PO DAILY 06/08/21 10/31/21 aspirin 81 mg PO 1200 10/31/21 10/31/21 levothyroxine [Euthyrox] 75 mcg PO DAILY 10/31/21 10/31/21 metformin 500 mg PO BID 10/31/21 10/31/21 <Neal Pruitt MD - Last Filed: 10/31/21 21:32> Allergies/Adverse Reactions: Allergies Allergy/AdvReac Type Severity Reaction Status Date / Time No Known Allergies Allergy Mild Verified 10/31/21 10:53 <Neal Pruitt MD - Last Filed: 10/31/21 21:32> Review of Systems Review of Systems: CONSTITUTIONAL: Denies fever, chills, or sweats. EYES: Denies visual changes, redness, or discharge. ENT: Denies rhinorrhea, congestion, sore throat, or otalgia. CARDIOVASCULAR: Denies chest pain, palpitations, or edema. RESPIRATORY: Denies cough or dyspnea. GASTROINTESTINAL: See HPI GENITOURINARY: Denies dysuria or hematuria. SKIN: Denies rash or itching. MUSCULOSKELETAL: Denies back pain, joint pain, or myalgia. NEUROLOGIC: Denies headache, numbness, or weakness. <Neal Pruitt MD - Last Filed: 10/31/21 21:32> FOR[facility]LY [facility], [facility] Past Medical History Medical History: Medical History COVID-19 Essential (primary) hypertension Gastro-esophageal reflux disease without esophagitis Hypothyroidism Neuropathy Other and unspecified hyperlipidemia Type 2 diabetes mellitus without complication, with no history of insulin use Vitamin D deficiency <Neal Pruitt MD - Last Filed: 10/31/21 21:32> Family History Family History: Family History Mother Family history of gastrointestinal disorder, Onset Age: 85 Family history of congestive heart failure, Onset Age: 85 Patient's mother is Family history of heart disease in male family member before age 55 Family history of congenital heart disease, Onset Age: 85 Father Family history of Alzheimer's disease, Onset Age: 89 Patient's father is Family history of renal failure Sibling Family history of Alzheimer's disease Other Hypertension <Neal Pruitt MD - Last Filed: 10/31/21 21:32> Social History Social History: Social History Smoking packs per day: 0.5 Smoking cigarettes per day: 10.0 Years smoked: 4 Smoking pack-years:
[2021-10-31 04:25] LABS: Alanine Aminotransferase 22 U/L (4-50); Albumin Level 3.8 g/dL (3.5-5.1); Alkaline Phosphatase 76 U/L (38-126); Anion Gap 7 mmol/L (8-16); Aspartate Amino Transferase 35 U/L (17-59); Bilirubin,Total 1.5 mg/dL (0.2-1.3); Blood Urea Nitrogen 15 mg/dL (9-20); Calcium 8.7 mg/dL (8.4-10.2); Carbon Dioxide 29 mmol/L (22-30); Chloride 100 mmol/L (98-107); Estimated Glomerular Filt Rate > 60; Glucose 178 mg/dL (65-110); Potassium 3.7 mmol/L (3.4-5.0); Sodium 136 mmol/L (137-145)
[2021-10-31 04:31] LABS: Add Urine Microscopic? YES; Appearance Urine Clear (Clear); Bilirubin Urine Negative (Negative); Blood Urine Negative (Negative); Color Urine Yellow (Yellow); Glucose Urine UA Negative (Negative); Ketones Urine 1+ mg/dL (Negative); Leukocyte Esterase Ur Negative LEU/UL (Negative); Mucus Urine Rare /lpf; Nitrate Urine Negative (Negative); Protein Urine 1+ mg/dL (Negative); RBC Urine 0-2 /hpf (0-2); Specific Grav Ur 1.015 (1.001-1.035); WBC Urine 0-3 /hpf
[2021-10-31] MEDS: MORPHINE SULFATE (*CRX) 4 MG/ML INJ IV PUSH (08:24)
--- NOTE | 2021-10-31 10:00 | PC.NURSE ---
This patient, Loy Gonzalez, was admitted to 3 [facility] Surg Room 312-01. Patient/family oriented to hospital policies and general routines including ID bracelet, bed and alarms, visiting hours, pain management, procedures, bathroom and other care routines, personal items, smoking policy, room service/diet, and visiting hours. Report received from Dottie JONES. Information on how to activate the Rapid Response Team has been discussed. Patient/Family are encouraged to report perceived risks to care and to ask questions if they do not understand what they are told or what they should do.
[2021-10-31] MEDS: SODIUM CHLORIDE 0.9% IV 1,000 ML 125 ML IV CONT (10:41)
--- NOTE | 2021-10-31 12:44 | PM.CNGS ---
Assessment and Plan Assessment and plan (1) Partial small bowel obstruction: Code(s): K56.600 - Partial intestinal obstruction, unspecified as to cause Status: Acute Assessment and Plan: continue NG suction, bowel rest, serial exams with labs and plain films. Usually this will resolve without additional surgery. I explained this to the patient and his family. I will follow along with you. Thank you for asking me to see this patient in consultation. (2) Type 2 diabetes mellitus without complication, with no history of insulin use: Code(s): E11.9 - Type 2 diabetes mellitus without complications Status: Chronic (3) Hypothyroidism: Qualifiers: Hypothyroidism type: acquired Qualified Code(s): E03.9 - Hypothyroidism, unspecified Code(s): E03.9 - Hypothyroidism, unspecified Status: Chronic (4) Gastro-esophageal reflux disease without esophagitis: Code(s): K21.9 - Gastro-esophageal reflux disease without esophagitis Status: Chronic History of Present Illness Consult details Consult date: 10/31/21 Reason for consult: abdominal pain Requesting physician: Fazal Spring MD Narrative: The patient is an 81-year-old man who was out of town working at [facility] last week and this weekend. The night before last he started noticing a little bit of abdominal discomfort and some distension. Then, yesterday, after eating a chicken salad sandwich for lunch he started having progressively worsening abdominal distension with diffuse pain. He had some nausea and vomiting. This got progressively worse. He left the [facility] about 3:00 a.m. this morning and came home, going to the emergency room right away. Evaluation there showed him to be very uncomfortable with a distended abdomen. He had some diffuse, nonspecific tenderness. CT scan of the abdomen and pelvis showed evidence of a possible small bowel obstruction or ileitis. I have reviewed his CT scan as well as his plain film of the abdomen [place] [address]. He has had a colon resection and colostomy. He had to be returned to surgery about a week after the colostomy creation for a small-bowel obstruction then. This was around 1992. Apparently, I assisted in the surgery with my former partner Dr. Wise. he went on to heal and had his colostomy closed. He had problems with incisional hernia particularly in the lower part of the abdomen. Several repairs were done. His last repair was done by Dr. Marie at [facility] and involved the use of mesh in the lower portion of the abdomen. He has since developed hypogastric incisional hernia which is above the previously placed mesh and has never been a problem for him. He has had a nasogastric tube placed and actually feels better than he did earlier today in that his abdominal pain and the sense of bloating or distention is improved. He is seen now in consultation. He does not recall eating anything out of the ordinary other than some pork ribs on Monday. Review of Systems Review of Systems: All systems reviewed & are unremarkable except as noted in HPI and below Constitutional: Constitutional: Denies chills, Denies fever(s), Denies headache(s), Denies night sweats and Reports poor appetite Cardiovascular: Cardiovascular: Denies chest pain, Denies diaphoresis, Denies dyspnea and Denies paroxysmal nocturnal dyspnea Respiratory: Respiratory: Denies chest congestion, Denies cough and Denies dyspnea Gastrointestinal: Gastrointestinal: Reports as per HPI, Reports abdominal pain, Reports bloating, Reports GI cramping and Reports nausea Integumentary/Breasts: Skin/Breast: Denies lesions and Denies rash PMFSH Past Medical History Medical History COVID-19 Essential (primary) hypertension Gastro-esophageal reflux disease without esophagitis Hypothyroidism Neuropathy Other and unspecified
--- NOTE | 2021-10-31 12:58 | PM.IMHP ---
H&P: HPI History of Present Illness Date/Time: 10/31/21 12:58 This 81-year-old male patient with significant past medical history of hypertension, GERD, hypothyroidism, type 2 diabetes non-insulin dependent, hyperlipidemia, vitamin-D deficiency with also history of small-bowel obstruction, bowel perforation status post colostomy and reanastomosis as well as 7 hernia repairs presented to the emergency room with complaints of having abdominal pain that began yesterday and slowly progressed as the day went on leading to dry heaving last night and with increased abdominal pain prompting him to come to the emergency room for evaluation. Upon arrival to the emergency room workup was performed that was significant for an elevated white blood cell count 14.5 without a left shift, and abdominal CT that showed regions of ileal wall thickening and a single area of chronic dilation near the anastomosis site. It is suspected infectious versus inflammatory enteritis with the possibility of a low-grade small-bowel obstruction not excludable. There is mild mesenteric edema and mild lymphadenopathy present that is probably reactive. In addition there is a left adrenal myelolipoma, mild prostatomegaly, supraumbilical fat containing hernias are present and there is hepatic steatosis. General surgery was consulted and evaluated patient in the emergency room, and he currently has an NG tube placed to low wall suction and he is NPO with IV hydration and orders for pain medications. This was explained to the patient and his family in entirety and they verbalized understanding. The patient currently denies any chest pain or dyspnea. Since he has the NG tube placed he is no longer nauseated, he has not passed flatus and he states his abdomen pain is still present diffusely but is overall improved since placement of the NG tube. Chief Complaint: Abdominal pain Review of Systems Review of Systems: All systems reviewed & are unremarkable except as noted in HPI and below PMFSH Past Medical History Medical History COVID-19 Essential (primary) hypertension Gastro-esophageal reflux disease without esophagitis Hypothyroidism Neuropathy Other and unspecified hyperlipidemia Type 2 diabetes mellitus without complication, with no history of insulin use Vitamin D deficiency Family History Family History Mother Family history of gastrointestinal disorder, Onset Age: 85 Family history of congestive heart failure, Onset Age: 85 Patient's mother is Family history of heart disease in male family member before age 55 Family history of congenital heart disease, Onset Age: 85 Father Family history of Alzheimer's disease, Onset Age: 89 Patient's father is Family history of renal failure Sibling Family history of Alzheimer's disease Other Hypertension Social History Social History Smoking packs per day: 0.5 Smoking cigarettes per day: 10.0 Years smoked: 4 Smoking pack-years: 2.00 Smoking status: Former smoker Tobacco type: cigarettes Second hand tobacco smoke exposure: No Additional smoking assessment comments: quit smoking in 1963 Alcohol intake: never Substance use: never Substance use type: does not use Gender identity (if verbalized by the patient): Male Spiritual care concerns: No Meds Home Medications and Allergies Home Medications Medication Instructions Recorded Confirmed Type cholecalciferol (vitamin D3) 50 2,000 unit PO DAILY #90 tablet 06/28/19 10/31/21 Rx mcg (2,000 unit) tablet metronidazole 0.75 % topical gel 1 applic TOPICAL BID 01/03/20 10/31/21 History multivitamin 1 cap PO 1200 04/29/20 10/31/21 History metoprolol succinate 50 mg 50 mg PO 1700 11/02/20 10/31/21 History tablet,extended release
[2021-10-31 13:48] LABS: Magnesium 1.8 mg/dL (1.6-2.3)
[2021-10-31 13:51] LABS: Hemoglobin A1C 6.9 % (<5.7)
[2021-10-31] MEDS: KCL 40 MEQ/0.9% SOD CHL 1,000 ML 100 ML IV CONT (14:36)
[2021-10-31] MEDS: ENOXAPARIN 40 MG/0.4 ML SYRINGE SUB-Q (14:37)
[2021-10-31 18:12] LABS: Glucose Point of Care 122 mg/dl (65-105)
[2021-10-31] MEDS: FAMOTIDINE 20 MG/2 ML VIAL IV PUSH (20:02)
[2021-11-01] MEDS: KCL 40 MEQ/0.9% SOD CHL 1,000 ML 100 ML IV CONT ×2 (01:38→12:45)
[2021-11-01 05:41] LABS: Basophils Percent Auto 0.5 % (0.2-1.2); Eosinophils Absolute Auto 0.1 K/mm3 (0-0.3); Eosinophils Percent Auto 0.8 % (0-4.4); Hematocrit 31.5 % (42.0-52.0); Hemoglobin 10.3 g/dL (14.0-18.0); Immature Granulocyte Absolute 0.03 K/mm3 (0.00-0.031); Immature Granulocyte Percent A 0.5 % (0-0.5); Lymphocytes Absolute Auto 1.02 K/mm3 (0.9-3.2); Mean Corpuscular HGB Conc 32.7 g/dl (32-36); Mean Corpuscular Hemoglobin 30.7 pg (26-34); Mean Corpuscular Volume 93.8 fl (80-100); Mean Platelet Volume 8.3 fl (7.4-10.4); Monocytes Absolute Auto 0.7 K/mm3 (0.1-0.6); Monocytes Percent Auto 10.8 % (2.6-8.5); Neutrophils Absolute Auto 4.2 K/mm3 (1.3-6.7); Neutrophils Percent Auto 70.4 % (45.5-73.1); Platelet Count Result 231 k/mm3 (150-375); Red Blood Count 3.36 M/mm3 (4.6-6.20); Red Cell Distribution Width 13.4 % (11.5-14.5)
[2021-11-01 05:54] LABS: Alanine Aminotransferase 18 U/L (4-50); Albumin Level 3.1 g/dL (3.5-5.1); Alkaline Phosphatase 66 U/L (38-126); Anion Gap 3 mmol/L (8-16); Aspartate Amino Transferase 24 U/L (17-59); Bilirubin,Total 1.3 mg/dL (0.2-1.3); Blood Urea Nitrogen 15 mg/dL (9-20); Calcium 7.7 mg/dL (8.4-10.2); Carbon Dioxide 27 mmol/L (22-30); Chloride 106 mmol/L (98-107); Estimated CRCL calculation 48 ml/min; Estimated Glomerular Filt Rate > 60; Glucose 117 mg/dL (65-110); Magnesium 1.9 mg/dL (1.6-2.3); Sodium 136 mmol/L (137-145)
[2021-11-01 06:00] VITALS: BP 139/69; PULSE 56; RESP 16; TEMP 36.7; O2SAT 95
[2021-11-01 06:43] LABS: Glucose Point of Care 111 mg/dl (65-105)
[2021-11-01 07:38] LABS: Glucose Point of Care 120 mg/dl (65-105)
[2021-11-01] MEDS: ENOXAPARIN 40 MG/0.4 ML SYRINGE SUB-Q (08:48)
[2021-11-01] MEDS: FAMOTIDINE 20 MG/2 ML VIAL IV PUSH ×2 (08:48→20:01)
--- NOTE | 2021-11-01 10:05 | PM.PNGS ---
Progress Note: A&P Assessment and Plan (1) Partial small bowel obstruction: Code(s): K56.600 - Partial intestinal obstruction, unspecified as to cause Status: Acute Assessment and Plan: Clinically improving. KUB this morning showed nonobstructive bowel gas pattern. Multiple liquid stools overnight and this morning. Will get a gastrografin small bowel follow through today. If contrast moves through to the colon, then we can remove the NG tube and start liquids. Encouraged increasing activity and walking the halls. (2) Type 2 diabetes mellitus without complication, with no history of insulin use: Code(s): E11.9 - Type 2 diabetes mellitus without complications Status: Chronic Additional Plan I have discussed the patient's case and plan of care with Dr. Galvan. Subjective Subjective Date/Time Seen: 11/01/21 09:45 Patient reports: no new complaints, feels better, pain is less, flatus, diarrhea and afebrile Interval history: 81 yo male who presented to the ER with abdominal pain, nausea, and vomiting. CT showed evidence of a possible small bowel obstruction or ileitis. He was admitted, NG placed, and he is NPO. Chart reviewed and he was seen and examined this morning. Patient reports feeling much better today. He denies any abdominal pain this morning, but still feels slightly tender and sore in the left lower abdomen. He reports flatus and multiple liquid stools overnight and this morning. He is sitting up in a chair. No other complaints at this time. Review of Systems Review of Systems: All systems reviewed & are unremarkable except as noted in HPI and below Exam Const: General: comfortable, no acute distress and awake Orientation/consciousness: patient oriented x3 GI: Inspection: non-distended GI Palp: Yes Soft to palpation, No Tenderness to palpation present (GI) (no real tenderness but reportedly feels diffusely sore with palpation), No Guarding due to palpation present (GI) and No Rebound tenderness present Auscultation: normal bowel sounds Neuro: General: moves all extremities and no focal motor deficits Extrem: General: normal to inspection Psych: Insight: Good insight present (Psych) Judgement: Good judgement present (Psych) Objective Data Vital Signs Vital Signs: Vital Signs - 24 hr 10/31/21 10:44 10/31/21 14:00 10/31/21 20:00 Temperature 97.7 F 97.5 F L Pulse Rate 68 53 L 53 L Respiratory Rate 18 18 18 Blood Pressure 135/60 154/79 H Pulse Oximetry 95 96 96 10/31/21 21:58 11/01/21 06:00 Temperature 98.3 F 98.0 F Pulse Rate 57 L 56 L Respiratory Rate 18 16 Blood Pressure 136/58 L 139/69 Pulse Oximetry 96 95 Intake/Output Intake/Output: Intake & Output 10/29/21 10/30/21 10/31/21 11/01/21 23:59 23:59 23:59 23:59 Intake Total 680 1050 Output Total 975 0 Balance -295 1050 Meds/Results Medications: Active Medications Generic Name Dose Route Start Last Admin Trade Name Freq PRN Reason Stop Dose Admin Dextrose 12.5 gm 10/31/21 13:16 Dextrose 50% 25 Gm/50 Ml Syringe IV PUSH PRN PRN Hypoglycemia Protocol Enoxaparin Sodium 40 mg 11/01/21 09:00 11/01/21 08:48 Enoxaparin 40 Mg/0.4 Ml Syringe SUB-Q 40 mg DAILY SALAS Administration Famotidine 20 mg 10/31/21 21:00 11/01/21 08:48 Famotidine 20 Mg/2 Ml Vial IV PUSH 20 mg Q12HR SALAS Administration Fentanyl Citrate 25 mcg 10/31/21 13:04 Fentanyl Citrate Inj (*Crx) 100 Mcg/2 Ml Vial IV PUSH Q2H PRN Pain Rated 7-10 Fentanyl Citrate 12.5 mcg 10/31/21 13:04 Fentanyl Citrate Inj (*Crx) 100 Mcg/2 Ml Vial IV PUSH Q2H PRN Pain Rated 4-6 Glucagon 1 mg 10/31/21 13:16 Glucagon For Inj 1 Mg Vial IM PRN PRN Hypoglycemia Protocol Glucose 15 gm 10/31/21 13:16 Glucose Oral Gel 15 Gm Of Glucse In 37.5 Gm Tube PO PRN PRN Hypoglycemia Protocol Piperacillin/Tazobactam/Dextrose 3.375 gm in 50 mls @ 100 ml
--- NOTE | 2021-11-01 10:19 | PM.IMPN ---
Progress Note: A&P Assessment and Plan (1) Partial small bowel obstruction: Code(s): K56.600 - Partial intestinal obstruction, unspecified as to cause Status: Acute Assessment and Plan: -general surgery, Dr. Galvan, was consulted and evaluated patient. Recommendations for bowel rest, IV fluids, antiemetics and pain medicine ordered. -maintain NG tube at low suction -serial exams, labs and plain films to be performed. -NPO -normal saline with 40 mEq of potassium chloride at 100 per hour. -Pepcid IV push b.i.d. (2) Leukocytosis (leucocytosis): Qualifiers: Leukocytosis type: unspecified Qualified Code(s): D72.829 - Elevated white blood cell count, unspecified Code(s): D72.829 - Elevated white blood cell count, unspecified Status: Acute Assessment and Plan: -14.5 without left shift -continue Zosyn 3.375 g q.6 hours. Blood cultures were not obtained prior to starting antibiotics in the ER. -blood cultures will be obtained at this time as patient have leukocytosis. -pending urine culture -trend labs and vitals. (3) Type 2 diabetes mellitus without complication, with no history of insulin use: Code(s): E11.9 - Type 2 diabetes mellitus without complications Status: Chronic Assessment and Plan: - glucose checks q.6 hours while patient is NPO. -hypoglycemic protocol -consider placing dextrose and IV fluids if needed. (4) Hypothyroidism: Qualifiers: Hypothyroidism type: acquired Qualified Code(s): E03.9 - Hypothyroidism, unspecified Code(s): E03.9 - Hypothyroidism, unspecified Status: Chronic Assessment and Plan: -current holding supplementation as patient is NPO. When able to tolerate p.o. intake reorder (5) Essential (primary) hypertension: Code(s): I10 - Essential (primary) hypertension Status: Acute Assessment and Plan: -currently stable. -patient is NPO, holding lisinopril and metoprolol. Subjective Date/time seen: 11/01/21 10:19 Patient is doing well this morning. Continues to have the NG to his left ear, clamped. General surgery is involved with the patient care. patient remains NPO. continue Zosyn. No acute changes. Patient denies any abdominal pain, nausea, vomiting persistent diarrhea. He has been able to ambulate in the hallways independently. Review of Systems Review of Systems: All systems reviewed & are unremarkable except as noted in HPI and below Exam Narrative: General: No acute distress. Mental Status: Awake, alert and oriented to person, place, and time with clear speech. Skin: Skin in warm, dry and intact without rashes or lesions. Head: Normocephalic and atraumatic. Eyes: Conjunctivae are clear without exudates or hemorrhage. Sclera is non-icteric. EOM are intact, PERRLA. Ears: The external ear and canal are non-tender and without swelling or discharge. Nose: Nasal mucosa is pink and moist. Septum midline. Nares patent bilaterally. NG to the left nare Throat: Oral mucosa pink and moist with good dentition. Tongue midline. Neck: The neck supple without adenopathy. Trachea midline. No JVD. Cardiac: S1 and S2 regular rate and rhythm. No murmurs, gallops, or rubs auscultated. Respiratory: Chest wall symmetric, nontender and without deformity or trauma. Respirations even and unlabored. Lung sounds are clear to auscultation in all lobes bilaterally without wheezes, rhonchi, or rales. Abdominal: Abdomen soft, round and non-tender to palpation. Bowel sounds present and normoactive in all 4 quadrants. Spine: Neck and back with grossly normal curvature, no deformity in appearance or signs of trauma. Extremities: Upper and lower extremities atraumatic without tenderness or deformity. Full range of motion and muscle strength 5/5 to all extremities bilaterally. Neurological: Full and symmetric motor and light touch sensation bilaterally. Cranial nerves II-XII grossly intact. Objective Data Vital
[2021-11-01 12:05] LABS: Glucose Point of Care 128 mg/dl (65-105)
[2021-11-01 14:00] VITALS: BP 154/60; PULSE 71; RESP 16; TEMP 36.4; O2SAT 97
[2021-11-01 16:20] LABS: Glucose Point of Care 308 mg/dl (65-105)
[2021-11-01] MEDS: INSULIN ASPART (*BKC) 100 UNITS/ML SUB-Q (17:09)
[2021-11-01 20:00] VITALS: PULSE 71; RESP 16; O2SAT 97
[2021-11-01 21:34] LABS: Glucose Point of Care 153 mg/dl (65-105)
[2021-11-01 22:00] VITALS: BP 168/72; PULSE 54; RESP 16; TEMP 36.3; O2SAT 98
[2021-11-02] MEDS: KCL 40 MEQ/0.9% SOD CHL 1,000 ML 75 ML IV CONT (03:47)
[2021-11-02 05:38] VITALS: BP 170/68; PULSE 44; RESP 16; TEMP 36.2; O2SAT 97
[2021-11-02 06:09] LABS: Hematocrit 30.7 % (42.0-52.0); Hemoglobin 10.3 g/dL (14.0-18.0); Mean Corpuscular HGB Conc 33.6 g/dl (32-36); Mean Corpuscular Hemoglobin 30.6 pg (26-34); Mean Corpuscular Volume 91.1 fl (80-100); Mean Platelet Volume 8.4 fl (7.4-10.4); Platelet Count Result 228 k/mm3 (150-375); Red Blood Count 3.37 M/mm3 (4.6-6.20); Red Cell Distribution Width 13.1 % (11.5-14.5); White Blood Count 6.1 K/mm3 (4.5-10.0)
[2021-11-02 06:29] LABS: Anion Gap 4 mmol/L (8-16); Blood Urea Nitrogen 9 mg/dL (9-20); Calcium 7.6 mg/dL (8.4-10.2); Carbon Dioxide 25 mmol/L (22-30); Chloride 108 mmol/L (98-107); Estimated CRCL calculation 53 ml/min; Estimated Glomerular Filt Rate > 60; Glucose 107 mg/dL (65-110); Potassium 3.8 mmol/L (3.4-5.0); Sodium 137 mmol/L (137-145)
[2021-11-02 07:37] LABS: Glucose Point of Care 122 mg/dl (65-105)
[2021-11-02] MEDS: ENOXAPARIN 40 MG/0.4 ML SYRINGE SUB-Q (08:28)
[2021-11-02] MEDS: FAMOTIDINE 20 MG/2 ML VIAL IV PUSH (08:28)
--- NOTE | 2021-11-02 09:10 | PM.PNGS ---
Progress Note: A&P Assessment and Plan (1) Partial small bowel obstruction: Code(s): K56.600 - Partial intestinal obstruction, unspecified as to cause Status: Acute Assessment and Plan: Continues to improve. Will advance to a low residue diabetic diet. Okay to use Imodium for loose stools, but would expect this to start forming up in the next few days. Okay to discharge the patient from our standpoint later today if he is tolerating his diet. Only follow-up as needed. (2) Type 2 diabetes mellitus without complication, with no history of insulin use: Code(s): E11.9 - Type 2 diabetes mellitus without complications Status: Chronic Additional Plan I have discussed the patient's case and plan of care with Dr. Galvan. Subjective Subjective Date/Time Seen: 11/02/21 09:10 Patient reports: no new complaints, feels better, tolerating liquids well (full liquids), flatus, diarrhea and afebrile Interval history: Patient seen and examined. He has no new complaints. He reports feeling even better today and feels less tender. He is walking in his room when I came to see him this morning. He reports multiple liquid bowel movements following the gastrografin study yesterday and lots of flatus. He denies any abdominal pain, nausea, or vomiting. Review of Systems Review of Systems: All systems reviewed & are unremarkable except as noted in HPI and below Exam Const: General: comfortable, no acute distress and awake Orientation/consciousness: patient oriented x3 GI: Inspection: non-distended GI Palp: Yes Soft to palpation, No Tenderness to palpation present (GI) (feels less sore today with palpation), No Guarding due to palpation present (GI) and No Rebound tenderness present Auscultation: normal bowel sounds Neuro: General: moves all extremities and no focal motor deficits Extrem: General: normal to inspection and no calf tenderness Psych: Insight: Good insight present (Psych) Judgement: Good judgement present (Psych) Objective Data Vital Signs Vital Signs: Vital Signs - 24 hr 11/01/21 14:00 11/01/21 20:00 11/01/21 22:00 Temperature 97.5 F L 97.3 F L Pulse Rate 71 71 54 L Respiratory Rate 16 16 16 Blood Pressure 154/60 H 168/72 H Pulse Oximetry 97 97 98 11/02/21 05:38 Temperature 97.2 F L Pulse Rate 44 L Respiratory Rate 16 Blood Pressure 170/68 H Pulse Oximetry 97 Intake/Output Intake/Output: Intake & Output 10/30/21 10/31/21 11/01/21 11/02/21 23:59 23:59 23:59 23:59 Intake Total 680 3740 2400 Output Total 975 755 700 Balance -295 2985 1700 Meds/Results Medications: Active Medications Generic Name Dose Route Start Last Admin Trade Name Freq PRN Reason Stop Dose Admin Dextrose 12.5 gm 10/31/21 13:16 Dextrose 50% 25 Gm/50 Ml Syringe IV PUSH PRN PRN Hypoglycemia Protocol Enoxaparin Sodium 40 mg 11/01/21 09:00 11/02/21 08:28 Enoxaparin 40 Mg/0.4 Ml Syringe SUB-Q 40 mg DAILY SALAS Administration Famotidine 20 mg 10/31/21 21:00 11/02/21 08:28 Famotidine 20 Mg/2 Ml Vial IV PUSH 20 mg Q12HR SALAS Administration Fentanyl Citrate 25 mcg 10/31/21 13:04 Fentanyl Citrate Inj (*Crx) 100 Mcg/2 Ml Vial IV PUSH Q2H PRN Pain Rated 7-10 Fentanyl Citrate 12.5 mcg 10/31/21 13:04 Fentanyl Citrate Inj (*Crx) 100 Mcg/2 Ml Vial IV PUSH Q2H PRN Pain Rated 4-6 Glucagon 1 mg 10/31/21 13:16 Glucagon For Inj 1 Mg Vial IM PRN PRN Hypoglycemia Protocol Glucose 15 gm 10/31/21 13:16 Glucose Oral Gel 15 Gm Of Glucse In 37.5 Gm Tube PO PRN PRN Hypoglycemia Protocol Piperacillin/Tazobactam/Dextrose 3.375 gm in 50 mls @ 100 mls/hr 10/31/21 15:00 11/02/21 08:27 Zosyn 3.375 Gm/D5w 50ml Pm IVPB 100 mls/hr Q6H SALAS Administration Ibuprofen 800 mg in 200 mls @ 400 mls/hr 10/31/21 13:04 Caldolor 800 Mg/200 Ml IVPB Q6H PRN Pain Rated 1-3 Dextrose 1,000 mls @ 100 m
--- NOTE | 2021-11-02 10:54 | PM.DS ---
DS: Admitting Diagnosis Discharge Date 11/02/2021 Admitting Diagnosis Partial small-bowel obstruction Leukocytosis Diabetes mellitus type 2 Hypothyroidism Essential hypertension DS: Discharge Diagnosis Discharge Diagnosis (1) Partial small bowel obstruction: Code(s): K56.600 - Partial intestinal obstruction, unspecified as to cause Status: Acute Assessment and Plan: -general surgery, Dr. Galvan, was consulted and evaluated patient. Recommendations for bowel rest, IV fluids, antiemetics and pain medicine ordered. -maintain NG tube at low suction -serial exams, labs and plain films to be performed. -NPO -normal saline with 40 mEq of potassium chloride at 100 per hour. -Pepcid IV push b.i.d. --resolved (2) Leukocytosis (leucocytosis): Qualifiers: Leukocytosis type: unspecified Qualified Code(s): D72.829 - Elevated white blood cell count, unspecified Code(s): D72.829 - Elevated white blood cell count, unspecified Status: Acute Assessment and Plan: -14.5 without left shift -continue Zosyn 3.375 g q.6 hours. Blood cultures were not obtained prior to starting antibiotics in the ER. -blood cultures will be obtained at this time as patient have leukocytosis. -pending urine culture -trend labs and vitals. ---resolved (3) Type 2 diabetes mellitus without complication, with no history of insulin use: Code(s): E11.9 - Type 2 diabetes mellitus without complications Status: Chronic Assessment and Plan: - glucose checks q.6 hours while patient is NPO. -hypoglycemic protocol -consider placing dextrose and IV fluids if needed. (4) Hypothyroidism: Qualifiers: Hypothyroidism type: acquired Qualified Code(s): E03.9 - Hypothyroidism, unspecified Code(s): E03.9 - Hypothyroidism, unspecified Status: Chronic Assessment and Plan: -current holding supplementation as patient is NPO. When able to tolerate p.o. intake reorder (5) Essential (primary) hypertension: Code(s): I10 - Essential (primary) hypertension Status: Acute Assessment and Plan: -currently stable. -patient is NPO, holding lisinopril and metoprolol. 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 Upon arrival to the emergency room workup was performed that was significant for an elevated white blood cell count 14.5 without a left shift, and abdominal CT that showed regions of ileal wall thickening and a single area of chronic dilation near the anastomosis site. It is suspected infectious versus inflammatory enteritis with the possibility of a low-grade small-bowel obstruction not excludable. There is mild mesenteric edema and mild lymphadenopathy present that is probably reactive. In addition there is a left adrenal myelolipoma, mild prostatomegaly, supraumbilical fat containing hernias are present and there is hepatic steatosis. General surgery was consulted and evaluated patient in the emergency room, and he currently has an NG tube placed to low wall suction and he is NPO with IV hydration and orders for pain medications. During the patient's hospitalization general surgery was able to follow the patient's plan of care in continuing the NG tube placement to low intermittent suction, while keeping the patient NPO. Patient
[2021-11-02 11:30] LABS: Glucose Point of Care 150 mg/dl (65-105)
== END 2021-11-02 13:28 | disposition home or self-care (01) | DRG 390 ==
LOC: ANHED 08:59 → ANH3MEDSUR 09:17
PROVIDERS: Emergency Medicine; Nurse Practitioner Adult Health; Surgery; Admitting Provider Internal Medicine; Emergency Provider Emergency Medicine; PCP Internal Medicine; Visit Provider Nurse Practitioner Family
DX: K56.600 Partial intestinal obstruction, unspecified as to cause (principal); D72.829 Elevated white blood cell count, unspecified; E11.9 Type 2 diabetes mellitus without complications; E03.9 Hypothyroidism, unspecified; I10 Essential (primary) hypertension; E78.49 Other hyperlipidemia; Z86.16 Personal history of COVID-19; E55.9 Vitamin D deficiency, unspecified; Z79.899 Other long term (current) drug therapy; Z82.49 Family history of ischemic heart disease and other diseases of the circulatory system; E11.40 Type 2 diabetes mellitus with diabetic neuropathy, unspecified; K76.0 Fatty (change of) liver, not elsewhere classified; Z82.0 Family history of epilepsy and other diseases of the nervous system; Z84.1 Family history of disorders of kidney and ureter; Z87.891 Personal history of nicotine dependence; Z79.82 Long term (current) use of aspirin; Z79.84 Long term (current) use of oral hypoglycemic drugs; Z98.0 Intestinal bypass and anastomosis status; N40.0 Benign prostatic hyperplasia without lower urinary tract symptoms; K42.9 Umbilical hernia without obstruction or gangrene
CPT/HCPCS: 36415; 74019; 74177; 74250; 80048; 80053; 81001; 82948; 83036; 83605; 83735; 85025; 85027; 87040; 96374; 99285; J1650; J1815; J2270; J2543; J7030; Q9967

== ENCOUNTER 2021-11-10 07:14 | Outpatient (CLI) | payer MEDICARE, BC, SELFPAY ==
[2021-11-10 07:53] LABS: Hemoglobin A1C 6.8 % (<5.7)
[2021-11-10 08:08] LABS: Alanine Aminotransferase 23 U/L (4-50); Albumin Level 3.8 g/dL (3.5-5.1); Alkaline Phosphatase 73 U/L (38-126); Anion Gap 4 mmol/L (8-16); Aspartate Amino Transferase 23 U/L (17-59); Blood Urea Nitrogen 19 mg/dL (9-20); Calcium 8.7 mg/dL (8.4-10.2); Carbon Dioxide 28 mmol/L (22-30); Chloride 104 mmol/L (98-107); Cholesterol 141 mg/dL (0-200); Estimated Glomerular Filt Rate > 60; Glucose 116 mg/dL (65-110); HDL Direct 40 mg/dL; Potassium 3.9 mmol/L (3.4-5.0); Sodium 136 mmol/L (137-145); Triglycerides 129 mg/dL (<150)
[2021-11-10 08:21] LABS: Vitamin D 25 Hydroxy 44.7 ng/mL
[2021-11-10 08:27] LABS: LDL Cholesterol Direct 68 mg/dL
== END 2021-11-10 07:15 | disposition home or self-care (01) ==
PROVIDERS: PCP Internal Medicine; Visit Provider Nurse Practitioner
DX: E78.5 Hyperlipidemia, unspecified (principal); E55.9 Vitamin D deficiency, unspecified; E11.9 Type 2 diabetes mellitus without complications; G62.9 Polyneuropathy, unspecified
CPT/HCPCS: 36415; 80053; 80061; 82306; 82607; 83036

== ENCOUNTER 2022-05-18 08:39 | Outpatient (CLI) | payer MEDICARE, BC, SELFPAY ==
[2022-05-18 09:21] LABS: Alanine Aminotransferase 23 U/L (6-50); Albumin Level 3.8 g/dL (3.5-5.1); Alkaline Phosphatase 70 U/L (38-126); Anion Gap 10 mmol/L (8-16); Aspartate Amino Transferase 29 U/L (17-59); Bilirubin,Total 0.8 mg/dL (0.2-1.3); Blood Urea Nitrogen 12 mg/dL (9-20); Calcium 8.4 mg/dL (8.4-10.2); Carbon Dioxide 28 mmol/L (22-30); Chloride 101 mmol/L (98-107); Cholesterol 127 mg/dL (0-200); Estimated Glomerular Filt Rate > 60; Glucose 128 mg/dL (65-110); HDL Direct 35 mg/dL; Potassium 4.1 mmol/L (3.4-5.0); Sodium 139 mmol/L (137-145); Triglycerides 154 mg/dL (<150)
[2022-05-18 09:34] LABS: LDL Cholesterol Direct 64 mg/dL
[2022-05-18 10:21] LABS: Vitamin D 25 Hydroxy 36.7 ng/mL
[2022-05-18 10:40] LABS: Hemoglobin A1C 7.3 % (<5.7)
== END 2022-05-18 08:40 | disposition home or self-care (01) ==
PROVIDERS: PCP Internal Medicine; Visit Provider Internal Medicine
DX: E53.8 Deficiency of other specified B group vitamins (principal); E78.5 Hyperlipidemia, unspecified; E03.9 Hypothyroidism, unspecified; E55.9 Vitamin D deficiency, unspecified; Z79.899 Other long term (current) drug therapy; E11.9 Type 2 diabetes mellitus without complications; I95.9 Hypotension, unspecified
CPT/HCPCS: 36415; 80053; 80061; 82306; 82607; 83036; 84443

== ENCOUNTER 2022-11-21 08:28 | Outpatient (CLI) | payer MEDICARE, BC, SELFPAY ==
[2022-11-21 09:18] LABS: Alanine Aminotransferase 23 U/L (6-50); Albumin Level 3.7 g/dL (3.5-5.1); Alkaline Phosphatase 68 U/L (38-126); Anion Gap 7 mmol/L (8-16); Aspartate Amino Transferase 24 U/L (17-59); Bilirubin,Total 0.8 mg/dL (0.2-1.3); Blood Urea Nitrogen 13 mg/dL (9-20); Calcium 8.4 mg/dL (8.4-10.2); Carbon Dioxide 29 mmol/L (22-30); Chloride 102 mmol/L (98-107); Cholesterol 129 mg/dL (0-200); Estimated Glomerular Filt Rate > 60; Glucose 146 mg/dL (65-110); HDL Direct 31 mg/dL; Potassium 4.1 mmol/L (3.4-5.0); Sodium 138 mmol/L (137-145); Triglycerides 186 mg/dL (<150)
[2022-11-21 09:30] LABS: Hemoglobin A1C 7.2 % (<5.7); LDL Cholesterol Direct 66 mg/dL
== END 2022-11-21 08:29 | disposition home or self-care (01) ==
PROVIDERS: PCP Family Medicine; Visit Provider Family Medicine
DX: E78.5 Hyperlipidemia, unspecified (principal); E03.9 Hypothyroidism, unspecified; E11.9 Type 2 diabetes mellitus without complications
CPT/HCPCS: 36415; 80053; 80061; 83036; 84443

== ENCOUNTER 2022-11-28 14:13 | Outpatient (CLI) | payer MEDICARE, BC, SELFPAY ==
[2022-11-28 14:49] LABS: Hematocrit 32.1 % (42.0-52.0); Hemoglobin 10.7 g/dL (14.0-18.0); Mean Corpuscular HGB Conc 33.3 g/dl (32-36); Mean Corpuscular Hemoglobin 30.1 pg (26-34); Mean Corpuscular Volume 90.2 fl (80-100); Mean Platelet Volume 8.4 fl (7.4-10.4); Platelet Count Result 268 k/mm3 (150-375); Red Blood Count 3.56 M/mm3 (4.6-6.20); White Blood Count 6.7 K/mm3 (4.5-10.0)
[2022-11-28 14:59] LABS: Alanine Aminotransferase 25 U/L (6-50); Alkaline Phosphatase 67 U/L (38-126); Anion Gap 7 mmol/L (8-16); Aspartate Amino Transferase 29 U/L (17-59); Bilirubin,Total 0.8 mg/dL (0.2-1.3); Blood Urea Nitrogen 12 mg/dL (9-20); Calcium 8.3 mg/dL (8.4-10.2); Carbon Dioxide 28 mmol/L (22-30); Chloride 101 mmol/L (98-107); Estimated Glomerular Filt Rate > 60; Glucose 116 mg/dL (65-110); Magnesium 1.4 mg/dL (1.6-2.3); Potassium 3.4 mmol/L (3.4-5.0); Sodium 136 mmol/L (137-145)
[2022-11-28 15:09] LABS: Iron 57 ug/dL (49-181)
[2022-11-28 15:18] LABS: Percent Iron Saturation 16 % (20-50)
[2022-11-28 15:30] LABS: Prostate Specific Antigen 2.3 ng/mL (< OR = 4.0)
== END 2022-11-28 14:14 | disposition home or self-care (01) ==
PROVIDERS: PCP Family Medicine; Visit Provider Family Medicine
DX: R42 Dizziness and giddiness (principal); I10 Essential (primary) hypertension; G25.81 Restless legs syndrome; R10.9 Unspecified abdominal pain; E11.69 Type 2 diabetes mellitus with other specified complication; E78.5 Hyperlipidemia, unspecified; R06.00 Dyspnea, unspecified; E55.9 Vitamin D deficiency, unspecified; E03.9 Hypothyroidism, unspecified; N40.0 Benign prostatic hyperplasia without lower urinary tract symptoms; Z12.5 Encounter for screening for malignant neoplasm of prostate
CPT/HCPCS: 36415; 80053; 83540; 83550; 83735; 84153; 85027; G0103

== ENCOUNTER 2023-09-05 09:34 | Outpatient (CLI) | payer MEDICARE, BC, SELFPAY ==
[2023-09-05 11:32] LABS: Hemoglobin A1C 7.6 % (<5.7)
== END 2023-09-05 09:35 | disposition home or self-care (01) ==
LOC: ANHLAB 09:36
PROVIDERS: PCP Family Medicine; Visit Provider Family Medicine
DX: Z79.899 Other long term (current) drug therapy (principal)
CPT/HCPCS: 36415; 83036

== ENCOUNTER 2024-01-04 07:53 | Outpatient (CLI) | payer MEDICARE, BC, SELFPAY ==
[2024-01-04 08:32] LABS: Alanine Aminotransferase 18 U/L (6-50); Albumin Level 3.9 g/dL (3.5-5.1); Alkaline Phosphatase 73 U/L (38-126); Anion Gap 8 mmol/L (4-12); Aspartate Amino Transferase 24 U/L (17-59); Bilirubin,Total 0.7 mg/dL (0.2-1.3); Blood Urea Nitrogen 22 mg/dL (9-20); Calcium 8.8 mg/dL (8.4-10.2); Carbon Dioxide 22 mmol/L (22-30); Chloride 108 mmol/L (98-107); Estimated Glomerular Filt Rate 58; Glucose 130 mg/dL (65-110); Potassium 4.3 mmol/L (3.4-5.0); Sodium 138 mmol/L (137-145)
[2024-01-04 08:44] LABS: Hematocrit 31.9 % (42.0-52.0); Hemoglobin 10.4 g/dL (14.0-18.0); Mean Corpuscular HGB Conc 32.6 g/dl (32-36); Mean Corpuscular Hemoglobin 29.4 pg (26-34); Mean Corpuscular Volume 90.1 fl (80-100); Mean Platelet Volume 8.5 fl (7.4-10.4); Platelet Count Result 271 k/mm3 (150-375); Red Blood Count 3.54 M/mm3 (4.6-6.20); Red Cell Distribution Width 13.6 % (11.5-14.5); White Blood Count 8.6 K/mm3 (4.5-10.0)
[2024-01-04 09:35] LABS: Hemoglobin A1C 6.5 % (<5.7)
== END 2024-01-04 07:54 | disposition home or self-care (01) ==
LOC: ANHLAB 07:57
PROVIDERS: PCP Family Medicine; Visit Provider Family Medicine
DX: E03.9 Hypothyroidism, unspecified (principal); I10 Essential (primary) hypertension; E87.6 Hypokalemia; I95.9 Hypotension, unspecified; R06.00 Dyspnea, unspecified; E11.9 Type 2 diabetes mellitus without complications; E66.9 Obesity, unspecified; Z79.899 Other long term (current) drug therapy
CPT/HCPCS: 36415; 80053; 83036; 84443; 85027

== ENCOUNTER 2024-07-16 08:08 | Outpatient (CLI) | payer MEDICARE, BC, SELFPAY ==
[2024-07-16 08:48] LABS: Hematocrit 35.3 % (42.0-52.0); Hemoglobin 11.9 g/dL (14.0-18.0); Mean Corpuscular HGB Conc 33.7 g/dl (32-36); Mean Corpuscular Hemoglobin 31.2 pg (26-34); Mean Corpuscular Volume 92.4 fl (80-100); Mean Platelet Volume 8.5 fl (7.4-10.4); Platelet Count Result 260 k/mm3 (150-375); Red Blood Count 3.82 M/mm3 (4.6-6.20); Red Cell Distribution Width 13.2 % (11.5-14.5); White Blood Count 6.8 K/mm3 (4.5-10.0)
[2024-07-16 08:58] LABS: Hemoglobin A1C 6.9 % (<5.7)
[2024-07-16 08:59] LABS: Alanine Aminotransferase 17 U/L (6-50); Albumin Level 3.8 g/dL (3.5-5.1); Alkaline Phosphatase 78 U/L (38-126); Anion Gap 2 mmol/L (4-12); Aspartate Amino Transferase 24 U/L (17-59); Bilirubin,Total 0.8 mg/dL (0.2-1.3); Blood Urea Nitrogen 18 mg/dL (9-20); Calcium 8.9 mg/dL (8.4-10.2); Carbon Dioxide 29 mmol/L (22-30); Chloride 107 mmol/L (98-107); Cholesterol 144 mg/dL (0-200); Estimated Glomerular Filt Rate > 60; Glucose 123 mg/dL (65-110); HDL Direct 41 mg/dL; Potassium 4.4 mmol/L (3.4-5.0); Sodium 138 mmol/L (137-145); Triglycerides 181 mg/dL (<150)
[2024-07-16 09:11] LABS: LDL Cholesterol Direct 64 mg/dL
[2024-07-16 09:13] LABS: Iron 66 ug/dL (49-181)
[2024-07-16 09:23] LABS: Percent Iron Saturation 20 % (20-50)
[2024-07-16 10:29] LABS: Creatinine Urine 65.5 mg/dL
[2024-07-16 10:34] LABS: MALB Creatinine Ratio 53.4 mg/g (0-30)
--- OUTSIDE RECORDS SUMMARY | 2024-07-23 06:09 | XMS_ITS | Continuity of Care Document ---
Author Name [facility] Organization [facility] Care Team Providers Care Dough Molder Name Role Phone [facility] Unavailable Unavailable Problems Combined list of problems from Department of Defense and Veterans Affairs facilities. It does not include entries that were removed or entered in error. Problem Status Onset Date Problem Type Date of Resolution Comments Source Allergic Rhinitis Active Condition [facility] B12 deficiency monitoring status (SNOMED CT 073173078) Active Condition [facility] Benign essential hypertension (SNOMED CT 3672172) Active Condition Feb 19, 2013 Entered By: JEWEL HERNANDEZ Comment: amlodipine 2.5 mg [facility] Benign prostatic hyperplasia Active Condition [facility] Diabetes mellitus Active Condition [facility] Diverticulosis Colon Active Condition Jun 01, 2010 Entered By: JEWEL HERNANDEZ Comment: colectomy-colono scopy done February 2010--due 2020 [facility] Dyspepsia Active Condition [facility] Hemorrhoids Active Condition [facility] Hypertension * (ICD-9-CM 401.9) Active Condition [facility] Hypothyroidism Active Condition Jan 232012 Entered By: JEWEL HERNANDEZ Comment: 50 mcg levothyroxine [facility] Impaired glucose tolerance Active Condition [facility] Incisional hernia without mention of obstruction or gangrene (ICD-9-CM 553.21) Active Condition Aug 26 14 Entered By: JEWEL HERNANDEZ Comment: ventral hernia repair jun 10 2013. [facility] Pain in joint involving lower leg (ICD-9-CM 719.46) Active Condition [facility] Skin Cancer Active Condition [facility] Diagnosis: ICD-10-CM H90.3 Sensorineural hearing loss, bilateral Active Diagnosis [facility] Diagnosis: ICD-10-CM Z01.818 Encounter for other preprocedural examination Active Diagnosis [facility] Diagnosis: ICD-10-CM C43.9 Malignant melanoma of skin, unspecified Active Diagnosis [facility] Diagnosis: ICD-10-CM C43.62 Malignant melanoma of left upper limb, including shoulder Active Diagnosis [facility] Diagnosis: ICD-10-CM H25.813 Combined forms of age-related cataract, bilateral Active Diagnosis [facility] Diagnosis: ICD-10-CM H25.13 Age-related nuclear cataract, bilateral Active Diagnosis [facility] Diagnosis: ICD-10-CM L57.0 Actinic keratosis Active Diagnosis [facility] Diagnosis: ICD-10-CM I10 Essential (primary) hypertension Active Diagnosis [facility] Diagnosis: ICD-10-CM Z46.89 Encounter for fitting and adjustment of oth devices Active Diagnosis [facility] Diagnosis: ICD-10-CM E11.65 Type 2 diabetes mellitus with hyperglycemia Active Diagnosis [facility] Diagnosis: ICD-10-CM R54 Age-related physical debility Active Diagnosis [facility] Diagnosis: ICD-10-CM E11.3293 Type 2 diab with mild nonp rtnop without macular edema, bi Active Diagnosis [facility] Diagnosis: ICD-10-CM M79.643 Pain in unspecified hand Active Diagnosis [facility] Diagnosis: ICD-10-CM Z00.01 Encounter for general adult medical exam w abnormal findings Active Diagnosis [facility] Medications Combined list of outpatient medications from Department of Defense and Veterans Affairs facilities.Medications provided include 1) outpatient medications from the last 15 months, and 2) patient-reported medications. Medication Details Route Status Patient Instructions Prescription Expires Prescription Number Last Dispense Date Ordering Provider Order Date Order Qty Source AMLODIPINE BESYLATE 5MG TAB TAKE ONE TABLET BY MOUTH ONCE A DAY ORAL ACTIVE ROSHAN HERNANDEZ 2015 [facility] CHLORHEXIDI NE GLUCONATE 4% LIQUID,TOP APPLY MODERATE AMOUNT TO AFFECTED AREA(S) DIRECTED FOR SKIN DISINFEC TION (TOPICAL USE ONLY) AVOID CONTACT WITH EYES. TOPICA L ACTIVE 07/24/2024 [id number] SIVA SIMMONS 2023 120 [facility] CHOLECALCIF PAM 50MCG (2,000UNIT) TAB TAKE ONE TABLET BY MOUTH ONCE A DAY ORAL ACTIVE NARRA,SRE E B 2012 [facility] CYANOCOBALA MIN 1000MCG TAB TAKE ONE TABLET BY MOUTH ONCE A DAY ORAL ACTIVE NARRA,SRE E B 2017 [facility] EMPAGLIFLOZ IN 5MG/METFORM IN 1000MG TAB,ORAL TAKE ONE TABLET BY MOUTH TWICE A DAY ORAL ACTIVE ROBERTO PANCHAL 2023 [facility] FLUOROURACI L 5% CREAM,TOP APPLY THIN FILM TO AFFECTED AREA(S) TWICE DAILY FOR ACTINIC KERATOSI S AVOID SUN EXPOSURE . FOLLOW DIRECTIO NS CAREFULL Y FOR PROPER HANDLING /DISPOSA L. APPLY TO SCALP AND EARS TWICE DAILY FOR 2 WEEKS THEN APPLY TWICE DAILY FOR TO WEEKS TO BOTH ARMS AVOID SUN EXPOSURE . FOLLOW DIRECTIO NS CAREFULL Y FOR PROPER HANDLING /DISPOSA L. APPLY TO SCALP AND EARS TWICE DAILY FOR 2 WEEKS THEN APPLY TWICE DAILY FOR TO WEEKS TO BOTH ARMS TOPICA L 06/27/2024 [id number] 4 SERJIO SCRUGGS G 2023 40 [facility] LEVOTHYROXI NE NA 75MCG TAB (SYNTHROID) TAKE ONE TABLET BY MOUTH EVERY MORNING BEFORE A MEAL ORAL ACTIVE ORIANA ARRINGTON 2020 [facility] LISINOPRIL 40MG TAB TAKE ONE TABLET BY MOUTH ONCE A DAY ORAL ACTIVE NARRA,SRE E B 2015 [facility] LORATADINE 10MG TAB TAKE ONE TABLET BY MOUTH ONCE A DAY ORAL ACTIVE NARRA,SRE E B 2015 [facility] METRONIDAZO LE 0.75% GEL,TOP APPLY SPARINGL Y TO AFFECTED AREA(S) TWICE A DAY TOPICA L ACTIVE MATA TORRES 2006 [facility] MULTIVITAMI NS CAP/TAB TAKE ONE TABLET BY MOUTH ONCE A DAY ORAL ACTIVE MATA TORRES [place] C 2004 [facility] OMEPRAZOLE 20MG CAP,EC TAKE 2 CAPSULES BY MOUTH EVERY MORNING ORAL ACTIVE ROSHAN HERNANDEZ B 2012 [facility] PHENYLEPHRI NE HCL 0.25% SUPP,RTL UNWRAP AND INSERT 1 SUPPOSIT ORY RECTALLY TWICE DAILY NEEDED RECTAL ACTIVE ROSHAN HERNANDEZ E B 2011 [facility] PSYLLIUM POWDER,ORAL MIX AND DRINK BY MOUTH ONCE A DAY ORAL ACTIVE JOSE ENRIQUE MARKS 2004 [facility] Immunizations Combined list of available immunizations from the Department of Defense and Veterans Affairs facilities. Immunization Series Date Given Administered By Site Reaction Lot Number CVX Code Drug Equal Opportunity Counselor Status Comments Source INFLUENZA, HIGH-DOSE, TRIVALENT, PF 2023 KATTY JANE A LEFT DELTO ID [id number] 135 complet ed [facility] RESPIRATORY SYNCYTIAL VIRUS (RSV), UNSPECIFIED 2023 304 complet ed [facility] INFLUENZA, HIGH-DOSE, QUADRIVALENT 2022 TELBASIL CORRALES LEFT DELTO ID [id number] 197 complet ed Tolerated well. [facility] INFLUENZA, UNSPECIFIED FORMULATION 2021 88 complet ed [facility] COVID-19 (MODERNA), MRNA, LNP-S, PF, 100 MCG OR 50 MCG DOSE 3 2020 207 complet ed [facility] INFLUENZA, UNSPECIFIED FORMULATION 2020 88 complet ed [facility] COVID-19 (MODERNA), MRNA, LNP-S, PF, 100 MCG/0.5 ML DOSE 2 2020 207 complet ed MOD; [id number]; 1 [facility] COVID-19 (MODERNA), MRNA, LNP-S, PF, 100 MCG/0.5 ML DOSE 1 2020 207 complet ed MOD; [id number]; 1 [facility] INFLUENZA, UNSPECIFIED FORMULATION 2019 88 complet ed [facility] ZOSTER RECOMBINANT 1 2018 187 complet ed [facility] INFLUENZA, INJECTABLE, QUADRIVALENT, PRESERVATIVE FREE 2017 150 complet ed [facility] INFLUENZA, INJECTABLE, QUADRIVALENT, PRESERVATIVE FREE 2016 150 complet ed [facility] INFLUENZA, SEASONAL, INJECTABLE 2015 141 complet ed [facility] INFLUENZA, SEASONAL, INJECTABLE, PRESERVATIVE FREE 2015 140 complet ed [facility] INFLUENZA, UNSPECIFIED FORMULATION 2014 88 complet ed [facility] PNEUMOCOCCAL CONJUGATE PCV 13 2014 133 complet ed [facility] INFLUENZA, UNSPECIFIED FORMULATION 2013 88 complet ed [facility] INFLUENZA, UNSPECIFIED FORMULATION 2012 88 complet ed [facility] INFLUENZA, UNSPECIFIED FORMULATION 2011 88 complet ed [facility] TD(ADULT) UNSPECIFIED FORMULATION 2011 139 complet ed Left Deltoid [facility] INFLUENZA, UNSPECIFIED FORMULATION 2010 88 complet ed [facility] INFLUENZA, UNSPECIFIED FORMULATION 2009 88 complet ed [facility] INFLUENZA, UNSPECIFIED FORMULATION 2008 88 complet ed [facility] ZOSTER LIVE 2008 121 complet ed [facility] INFLUENZA, UNSPECIFIED FORMULATION 2007 88 complet ed per letter [facility] INFLUENZA, UNSPECIFIED FORMULATION 2006 88 complet ed [facility] INFLUENZA, UNSPECIFIED FORMULATION 2005 JOEY GIL 88 complet ed [facility] INFLUENZA, UNSPECIFIED FORMULATION 2004 88 complet ed [facility] PNEUMOCOCCAL, UNSPECIFIED FORMULATION 2003 109 complet ed [facility] INFLUENZA, UNSPECIFIED FORMULATION 2002 88 complet ed [facility] TD(ADULT) UNSPECIFIED FORMULATION 2001 139 complet ed [facility] Results Combined list of recent chemistry, hematology and other laboratory results from Department of Defense and Veterans Affairs, ranging from 15 months to all on record, depending upon the facility. Order Name Results Value Reference Range Date Interpretation Specimen Comments Source BASIC METABOLIC PANEL CREATININE [MASS/VOLUM E] IN SERUM OR PLASMA 1.17 mg/dL 0.7 - 1.3 07/03 Specimen Type: PLASMA Comment: No hemolysis noted. Ordering Provider: JYOTI SIMMONS Report Released Date/Time: Jun 24, 2024 11:11 AM Reporting Lab: [facility] [address] [place] [phone] Performing Lab: [facility] [address] [place] [phone] [place] [address] BASIC METABOLIC PANEL UREA NITROGEN [MASS/VOLUM E] IN SERUM OR PLASMA 15.4 mg/dL 9.0 - 25.0 07/03 Specimen Type: PLASMA Comment: No hemolysis noted. Ordering Provider: JYOTI SIMMONS Report Released Date/Time: Jun 24, 2024 11:11 AM Reporting Lab: [facility] [address] [place] [phone] Performing Lab: [address] [address] [facility] BASIC METABOLIC PANEL GLUCOSE [MASS/VOLUM E] IN SERUM OR PLASMA 175 mg/dL 72 - 99 07/03 H Specimen Type: PLASMA Comment: No hemolysis noted. Ordering Provider: JYOTI SIMMONS Report Released Date/Time: Jun 24, 2024 11:11 AM Reporting Lab: [facility] [address] [facility] [phone] Performing Lab: [facility] [address] [facility] [address] [facility] BASIC METABOLIC PANEL SODIUM [MOLES/VOLU ME] IN SERUM OR PLASMA 140 meq/L 136 - 145 07/03 Specimen Type: PLASMA Comment: No hemolysis noted. Ordering Provider: JYOTI SIMMONS Report Released Date/Time: Jun 24, 2024 11:11 AM Reporting Lab: [facility] [address] [facility] [phone] Performing Lab: [facility] [address] [facility] [address] [facility] BASIC METABOLIC PANEL POTASSIUM [MOLES/VOLU ME] IN SERUM OR PLASMA 4.3 meq/L 3.5 - 5 07/03 Specimen Type: PLASMA Comment: No hemolysis noted. Ordering Provider: JYOTI SIMMONS Report Released Date/Time: Jun 24, 2024 11:11 AM Reporting Lab: [facility] [address] [facility] [phone] Performing Lab: [facility] [address] [facility] [address] [facility] BASIC METABOLIC PANEL CHLORIDE [MOLES/VOLU ME] IN SERUM OR PLASMA 106 meq/L 98 - 107 07/03 Specimen Type: PLASMA Comment: No hemolysis noted. Ordering Provider: JYOTI SIMMONS Report Released Date/Time: Jun 24, 2024 11:11 AM Reporting Lab: [facility] [address] [facility] [address] Performing Lab: [facility] [address] [facility] [address] [facility] BASIC METABOLIC PANEL CARBON DIOXIDE, TOTAL [MOLES/VOLU ME] IN SERUM OR PLASMA 25 meq/L 22 - 31 07/03 Specimen Type: PLASMA Comment: No hemolysis noted. Ordering Provider: JYOTI SIMMONS Report Released Date/Time: Jun 24, 2024 11:11 AM Reporting Lab: [facility] [address] [facility] [address] Performing Lab: [address] [address] [facility] BASIC METABOLIC PANEL CALCIUM [MASS/VOLUM E] IN SERUM OR PLASMA 9.0 mg/dL 8.4 - 10.4 07/03 Specimen Type: PLASMA Comment: No hemolysis noted. Ordering Provider: JYOTI SIMMONS Report Released Date/Time: Jun 24, 2024 11:11 AM Reporting Lab: [address] [address] Performing Lab: [place] [address] [facility] [address] [facility] BASIC METABOLIC PANEL GLOMERULAR FILTRATION RATE/1.73 SQ M.PREDICTED [VOLUME RATE/AREA] IN SERUM, PLASMA OR BLOOD BY CREATININE- BASED FORMULA (CKD-EPI 2020) 61.1 60 07/03 Specimen Type: PLASMA Comment: No hemolysis noted. Ordering Provider: JYOTI SIMMONS Report Released Date/Time: Jun 24, 2024 11:11 AM Reporting Lab: [address] [address] Performing Lab: [place] [address] [facility] [address] [facility] CBC LEUKOCYTES [#/VOLUME] IN BLOOD BY AUTOMATED COUNT 8.1 10*3/u L 3.6 - 11.2 07/03 Specimen Type: BLOOD No comment entered. Ordering Provider: JYOTI SIMMONS Report Released Date/Time: Jun 24, 2024 11:11 AM Reporting Lab: [address] [address] Performing Lab: [address] [address] [facility] CBC ERYTHROCYTE S [#/VOLUME] IN BLOOD BY AUTOMATED COUNT 3.72 10*6/u L 4.10 - 5.70 07/03 L Specimen Type: BLOOD No comment entered. Ordering Provider: JYOTI SIMMONS Report Released Date/Time: Jun 24, 2024 11:11 AM Reporting Lab: [address] [address] Performing Lab: [address] [address] [facility] CBC HEMOGLOBIN [MASS/VOLUM E] IN BLOOD 11.6 g/dL 13.1 - 16.8 07/03 L Specimen Type: BLOOD No comment entered. Ordering Provider: JYOTI SIMMONS Report Released Date/Time: Jun 24, 2024 11:11 AM Reporting Lab: [address] [address] Performing Lab: [phone] [place] [address] CBC HEMATOCRIT [VOLUME FRACTION] OF BLOOD 33.8 38.2 - 48.4 07/03 L Specimen Type: BLOOD No comment entered. Ordering Provider: JYOTI SIMMONS Report Released Date/Time: Jun 24, 2024 11:11 AM Reporting Lab: [address] [address] Performing Lab: [address] [address] [facility] CBC MCV [ENTITIC VOLUME] BY AUTOMATED COUNT 90.9 fL 80.0 - 100.0 07/03 Specimen Type: BLOOD No comment entered. Ordering Provider: JYOTI SIMMONS Report Released Date/Time: Jun 24, 2024 11:11 AM Reporting Lab: [address] [address] Performing Lab: [address] [address] [facility] CBC MCH [ENTITIC MASS] BY AUTOMATED COUNT 31.2 pg 27.0 - 34.0 07/03 Specimen Type: BLOOD No comment entered. Ordering Provider: JYOTI SIMMONS Report Released Date/Time: Jun 24, 2024 11:11 AM Reporting Lab: [address] [address] Performing Lab: [address] [address] [facility] CBC MCHC [MASS/VOLUM E] BY AUTOMATED COUNT 34.3 g/dL 33.0 - 36.0 07/03 Specimen Type: BLOOD No comment entered. Ordering Provider: JYOTI SIMMONS Report Released Date/Time: Jun 24, 2024 11:11 AM Reporting Lab: [address] [address] Performing Lab: [address] [phone] [place] [address] CBC PLATELETS [#/VOLUME] IN BLOOD BY AUTOMATED COUNT 252 10*3/u L 150 - 400 07/03 Specimen Type: BLOOD No comment entered. Ordering Provider: JYOTI SIMMONS Report Released Date/Time: Jun 24, 2024 11:11 AM Reporting Lab: [address] [address] Performing Lab: [address] [address] [facility] CBC PLATELET MEAN VOLUME [ENTITIC VOLUME] IN BLOOD BY AUTOMATED COUNT 8.4 fL 7.5 - 11.2 07/03 Specimen Type: BLOOD No comment entered. Ordering Provider: JYOTI SIMMONS Report Released Date/Time: Jun 24, 2024 11:11 AM Reporting Lab: [address] [address] Performing Lab: [address] [address] [facility] CBC ERYTHROCYTE DISTRIBUTIO N WIDTH [RATIO] BY AUTOMATED COUNT 13.2 11.8 - 15.1 07/03 Specimen Type: BLOOD No comment entered. Ordering Provider: JYOTI SIMMONS Report Released Date/Time: Jun 24, 2024 11:11 AM Reporting Lab: [facility] [address] [facility] [address] Performing Lab: [facility] [address] [facility] [address] [facility] CBC LYMPHOCYTES /100 LEUKOCYTES IN BLOOD BY AUTOMATED COUNT 14 07/03 Specimen Type: BLOOD No comment entered. Ordering Provider: JYOTI SIMMONS Report Released Date/Time: Jun 24, 2024 11:11 AM Reporting Lab: [facility] [address] [facility] [address] Performing Lab: [facility] [address] [facility] [address] [facility] CBC MONOCYTES/1 00 LEUKOCYTES IN BLOOD BY AUTOMATED COUNT 9 07/03 Specimen Type: BLOOD No comment entered. Ordering Provider: JYOTI SIMMONS Report Released Date/Time: Jun 24, 2024 11:11 AM Reporting Lab: [facility] [address] [facility] [address] Performing Lab: [facility] [address] [facility] [address] [facility] CBC NEUTROPHILS /100 LEUKOCYTES IN BLOOD BY AUTOMATED COUNT 75 07/03 Specimen Type: BLOOD No comment entered. Ordering Provider: JYOTI SIMMONS Report Released Date/Time: Jun 24, 2024 11:11 AM Reporting Lab: [facility] [address] [facility] [address] Performing Lab: [facility] [address] [facility] [address] [facility] CBC EOSINOPHILS /100 LEUKOCYTES IN BLOOD BY AUTOMATED COUNT 1 07/03 Specimen Type: BLOOD No comment entered. Ordering Provider: JYOTI SIMMONS Report Released Date/Time: Jun 24, 2024 11:11 AM Reporting Lab: [facility] [address] [facility] [address] Performing Lab: [facility] [address] [facility] [address] [facility] CBC BASOPHILS/1 00 LEUKOCYTES IN BLOOD BY AUTOMATED COUNT 1 07/03 Specimen Type: BLOOD No comment entered. Ordering Provider: JYOTI SIMMONS Report Released Date/Time: Jun 24, 2024 11:11 AM Reporting Lab: [address] [address] Performing Lab: [address] [address] [facility] CBC LYMPHOCYTES [#/VOLUME] IN BLOOD BY AUTOMATED COUNT 1.17 10*3/u L 0.77 - 4.50 07/03 Specimen Type: BLOOD No comment entered. Ordering Provider: JYOTI SIMMONS Report Released Date/Time: Jun 24, 2024 11:11 AM Reporting Lab: [place] [address] [facility] [address] Performing Lab: [address] [address] [facility] CBC MONOCYTES [#/VOLUME] IN BLOOD BY AUTOMATED COUNT 0.70 10*3/u L 0.19 - 0.80 07/03 Specimen Type: BLOOD No comment entered. Ordering Provider: JYOTI SIMMONS Report Released Date/Time: Jun 24, 2024 11:11 AM Reporting Lab: [place] [address] [facility] [address] Performing Lab: [address] [address] [facility] CBC NEUTROPHILS [#/VOLUME] IN BLOOD BY AUTOMATED COUNT 6.11 10*3/u L 2.10 - 8.00 07/03 Specimen Type: BLOOD No comment entered. Ordering Provider: JYOTI SIMMONS Report Released Date/Time: Jun 24, 2024 11:11 AM Reporting Lab: [address] [address] Performing Lab: [place] [id number] [facility] [address] [facility] CBC EOSINOPHILS [#/VOLUME] IN BLOOD BY AUTOMATED COUNT 0.09 10*3/u L 0.00 - 0.60 07/03 Specimen Type: BLOOD No comment entered. Ordering Provider: JYOTI SIMMONS Report Released Date/Time: Jun 24, 2024 11:11 AM Reporting Lab: [place] [address] [facility] [address] Performing Lab: [address] [address] [facility] CBC BASOPHILS [#/VOLUME] IN BLOOD BY AUTOMATED COUNT 0.04 10*3/u L 0.00 - 0.20 07/03 Specimen Type: BLOOD No comment entered. Ordering Provider: JYOTI SIMMONS Report Released Date/Time: Jun 24, 2024 11:11 AM Reporting Lab: [place] [address] [facility] [address] Performing Lab: [address] [phone] [place] [address] B12 COBALAMIN (VITAMIN B12) [MASS/VOLUM E] IN SERUM OR PLASMA 724 pg/mL 213 - 816 09/25 Specimen Type: SERUM No comment entered. Ordering Provider: PRIMO PANCHAL Report Released Date/Time: Sep 26, 2023 10:20 AM Reporting Lab: [place] [address] [facility] [address] Performing Lab: [address] [address] [facility] CBC LEUKOCYTES [#/VOLUME] IN BLOOD BY AUTOMATED COUNT 5.7 10*3/u L 3.6 - 11.2 09/25 Specimen Type: BLOOD No comment entered. Ordering Provider: PRIMO PANCHAL Report Released Date/Time: Sep 26, 2023 10:20 AM Reporting Lab: [place] [id number] [facility] [address] Performing Lab: [facility] [address] [place] [phone] [facility] CBC ERYTHROCYTE S [#/VOLUME] IN BLOOD BY AUTOMATED COUNT 3.68 10*6/u L 4.10 - 5.70 09/25 L Specimen Type: BLOOD No comment entered. Ordering Provider: PRIMO PANCHAL Report Released Date/Time: Sep 26, 2023 10:20 AM Reporting Lab: [facility] [address] [place] [phone] Performing Lab: [address] [address] [facility] CBC HEMOGLOBIN [MASS/VOLUM E] IN BLOOD 11.1 g/dL 13.1 - 16.8 09/25 L Specimen Type: BLOOD No comment entered. Ordering Provider: PRIMO PANCHAL Report Released Date/Time: Sep 26, 2023 10:20 AM Reporting Lab: [facility] [address] [place] [phone] Performing Lab: [address] [address] [facility] CBC HEMATOCRIT [VOLUME FRACTION] OF BLOOD 32.8 38.2 - 48.4 09/25 L Specimen Type: BLOOD No comment entered. Ordering Provider: PRIMO PANCHAL Report Released Date/Time: Sep 26, 2023 10:20 AM Reporting Lab: [facility] [address] [place] [phone] Performing Lab: [address] [address] [facility] CBC MCV [ENTITIC VOLUME] BY AUTOMATED COUNT 89.1 fL 80.0 - 100.0 09/25 Specimen Type: BLOOD No comment entered. Ordering Provider: PRIMO PANCHAL Report Released Date/Time: Sep 26, 2023 10:20 AM Reporting Lab: [facility] [address] [place], [place] [phone] Performing Lab: [facility] [address] [facility] [id number] [facility] [ENTITIC MASS] BY AUTOMATED COUNT 30.2 pg 27.0 - 34.0 09/25 Specimen Type: BLOOD No comment entered. Ordering Provider: PRIMO PANCHAL Report Released Date/Time: Sep 26, 2023 10:20 AM Reporting Lab: [facility] [address] [place] [phone] Performing Lab: [facility] [address] [place] [id number] [facility] [MASS/VOLUM E] BY AUTOMATED COUNT 33.8 g/dL 33.0 - 36.0 09/25 Specimen Type: BLOOD No comment entered. Ordering Provider: PRIMO PANCHAL Report Released Date/Time: Sep 26, 2023 10:20 AM Reporting Lab: [facility] [address] [place] [phone] Performing Lab: [facility] [address] [place] [phone] [facility] CBC PLATELETS [#/VOLUME] IN BLOOD BY AUTOMATED COUNT 299 10*3/u L 150 - 400 09/25 Specimen Type: BLOOD No comment entered. Ordering Provider: PRIMO PANCHAL Report Released Date/Time: Sep 26, 2023 10:20 AM Reporting Lab: [facility] [address] [place] [phone] Performing Lab: [facility] [address] [place] [phone] [facility] CBC PLATELET MEAN VOLUME [ENTITIC VOLUME] IN BLOOD BY AUTOMATED COUNT 9.0 fL 7.5 - 11.2 09/25 Specimen Type: BLOOD No comment entered. Ordering Provider: PRIMO PANCHAL Report Released Date/Time: Sep 26, 2023 10:20 AM Reporting Lab: [facility] [address] [place] [phone] Performing Lab: [facility] [address] [facility] [phone] [facility] CBC ERYTHROCYTE DISTRIBUTIO N WIDTH [RATIO] BY AUTOMATED COUNT 13.0 11.8 - 15.1 09/25 Specimen Type: BLOOD No comment entered. Ordering Provider: PRIMO PACNHAL Report Released Date/Time: Sep 26, 2023 10:20 AM Reporting Lab: [facility] [address] [facility] [phone] Performing Lab: [facility] [address] [facility] [phone] [facility] CBC LYMPHOCYTES /100 LEUKOCYTES IN BLOOD BY AUTOMATED COUNT 18 09/25 Specimen Type: BLOOD No comment entered. Ordering Provider: PRIMO PANCHAL Report Released Date/Time: Sep 26, 2023 10:20 AM Reporting Lab: [facility] [address] [facility] [phone] Performing Lab: [facility] [address] [facility] [phone] [facility] CBC MONOCYTES/1 00 LEUKOCYTES IN BLOOD BY AUTOMATED COUNT 10 09/25 Specimen Type: BLOOD No comment entered. Ordering Provider: PRIMO PANCHAL Report Released Date/Time: Sep 26, 2023 10:20 AM Reporting Lab: [facility] [address] [facility] [phone] Performing Lab: [facility] [address] [facility] [phone] [facility] CBC NEUTROPHILS /100 LEUKOCYTES IN BLOOD BY AUTOMATED COUNT 69 09/25 Specimen Type: BLOOD No comment entered. Ordering Provider: PRIMO PANCHAL Report Released Date/Time: Sep 26, 2023 10:20 AM Reporting Lab: [facility] [address] [facility] [phone] Performing Lab: [facility] [address] [facility] [phone] [facility] CBC EOSINOPHILS /100 LEUKOCYTES IN BLOOD BY AUTOMATED COUNT 2 09/25 Specimen Type: BLOOD No comment entered. Ordering Provider: PRIMO PANCHAL Report Released Date/Time: Sep 26, 2023 10:20 AM Reporting Lab: [facility] [address] [place] [phone] Performing Lab: [facility] [address] [place] [phone] [facility] CBC BASOPHILS/1 00 LEUKOCYTES IN BLOOD BY AUTOMATED COUNT 1 09/25 Specimen Type: BLOOD No comment entered. Ordering Provider: PRIMO PANCHAL Report Released Date/Time: Sep 26, 2023 10:20 AM Reporting Lab: [facility] [address] [place], [place] [phone] Performing Lab: [facility] [address] [place] [phone] CBC LYMPHOCYTES [#/VOLUME] IN BLOOD BY AUTOMATED COUNT 1.03 10*3/u L 0.77 - 4.50 09/25 Specimen Type: BLOOD No comment entered. Ordering Provider: PRIMO PANCHAL Report Released Date/Time: Sep 26, 2023 10:20 AM Reporting Lab: [facility] [address] [place] [phone] Performing Lab: [facility] [address] [place] [phone] [facility] CBC MONOCYTES [#/VOLUME] IN BLOOD BY AUTOMATED COUNT 0.57 10*3/u L 0.19 - 0.80 09/25 Specimen Type: BLOOD No comment entered. Ordering Provider: PRIMO PANCHAL Report Released Date/Time: Sep 26, 2023 10:20 AM Reporting Lab: [facility] [address] [place] [phone] Performing Lab: [facility] [address] [place] [phone] [facility] CBC NEUTROPHILS [#/VOLUME] IN BLOOD BY AUTOMATED COUNT 3.94 10*3/u L 2.10 - 8.00 09/25 Specimen Type: BLOOD No comment entered. Ordering Provider: PRIMO PANCHAL Report Released Date/Time: Sep 26, 2023 10:20 AM Reporting Lab: [facility] [address] [place], [place] [phone] Performing Lab: [facility] [address] [place] [phone] [place] [address] CBC EOSINOPHILS [#/VOLUME] IN BLOOD BY AUTOMATED COUNT 0.13 10*3/u L 0.00 - 0.60 09/25 Specimen Type: BLOOD No comment entered. Ordering Provider: PRIMO PANCHAL Report Released Date/Time: Sep 26, 2023 10:20 AM Reporting Lab: [facility] [address] [place] [phone] Performing Lab: [facility] [address] [place] [address] [phone] [place] [address] CBC BASOPHILS [#/VOLUME] IN BLOOD BY AUTOMATED COUNT 0.05 10*3/u L 0.00 - 0.20 09/25 Specimen Type: BLOOD No comment entered. Ordering Provider: PRIMO PANCHAL Report Released Date/Time: Sep 26, 2023 10:20 AM Reporting Lab: [facility] [address] [place] [phone] Performing Lab: [facility] [address] [place] [phone] [place] [address] COMPREHEN SIVE METABOLIC PANEL CREATININE [MASS/VOLUM E] IN SERUM OR PLASMA 1.21 mg/dL 0.7 - 1.3 09/25 Specimen Type: PLASMA Comment: No hemolysis noted. Ordering Provider: PRIMO PANCHAL Report Released Date/Time: Sep 26, 2023 10:20 AM Reporting Lab: [facility] [address] [place] [phone] Performing Lab: [facility] [address] [place] [phone] [facility] COMPREHEN SIVE METABOLIC PANEL UREA NITROGEN [MASS/VOLUM E] IN SERUM OR PLASMA 16.4 mg/dL 9.0 - 25.0 09/25 Specimen Type: PLASMA Comment: No hemolysis noted. Ordering Provider: PRIMO PANCHAL Report Released Date/Time: Sep 26, 2023 10:20 AM Reporting Lab: [facility] [address] [facility] [phone] Performing Lab: [facility] [address] [facility] [address] [facility] COMPREHEN SIVE METABOLIC PANEL GLUCOSE [MASS/VOLUM E] IN SERUM OR PLASMA 176 mg/dL 72 - 99 09/25 H Specimen Type: PLASMA Comment: No hemolysis noted. Ordering Provider: PRIMO PANCHAL Report Released Date/Time: Sep 26, 2023 10:20 AM Reporting Lab: [facility] [address] [place] [phone] Performing Lab: [facility] [address] [place] [phone] [facility] COMPREHEN SIVE METABOLIC PANEL SODIUM [MOLES/VOLU ME] IN SERUM OR PLASMA 138 meq/L 136 - 145 09/25 Specimen Type: PLASMA Comment: No hemolysis noted. Ordering Provider: PRIMO PANCHAL Report Released Date/Time: Sep 26, 2023 10:20 AM Reporting Lab: [facility] [address] [facility] [phone] Performing Lab: [facility] [address] [place] [phone] [facility] COMPREHEN SIVE METABOLIC PANEL POTASSIUM [MOLES/VOLU ME] IN SERUM OR PLASMA 4.0 meq/L 3.5 - 5 09/25 Specimen Type: PLASMA Comment: No hemolysis noted. Ordering Provider: PRIMO PANCHAL Report Released Date/Time: Sep 26, 2023 10:20 AM Reporting Lab: [facility] [address] [facility] [phone] Performing Lab: [facility] [address] [place] [phone] [facility] COMPREHEN SIVE METABOLIC PANEL CHLORIDE [MOLES/VOLU ME] IN SERUM OR PLASMA 103 meq/L 98 - 107 09/25 Specimen Type: PLASMA Comment: No hemolysis noted. Ordering Provider: PRIMO PANCHAL Report Released Date/Time: Sep 26, 2023 10:20 AM Reporting Lab: [facility] [address] [place] [phone] Performing Lab: [facility] [address] [place] [phone] [facility] COMPREHEN SIVE METABOLIC PANEL CARBON DIOXIDE, TOTAL [MOLES/VOLU ME] IN SERUM OR PLASMA 26 meq/L 22 - 31 09/25 Specimen Type: PLASMA Comment: No hemolysis noted. Ordering Provider: PRIMO PANCHAL Report Released Date/Time: Sep 26, 2023 10:20 AM Reporting Lab: [address] [phone] Performing Lab: [address] [phone] [facility] COMPREHEN SIVE METABOLIC PANEL CALCIUM [MASS/VOLUM E] IN SERUM OR PLASMA 9.4 mg/dL 8.4 - 10.4 09/25 Specimen Type: PLASMA Comment: No hemolysis noted. Ordering Provider: PRIMO PANCHAL Report Released Date/Time: Sep 26, 2023 10:20 AM Reporting Lab: [facility] [address] [place] [phone] Performing Lab: [facility] [address] [place] [phone] [facility] COMPREHEN SIVE METABOLIC PANEL PROTEIN [MASS/VOLUM E] IN SERUM OR PLASMA 7.2 g/dL 6 - 8.6 09/25 Specimen Type: PLASMA Comment: No hemolysis noted. Ordering Provider: PRIMO PANCHAL Report Released Date/Time: Sep 26, 2023 10:20 AM Reporting Lab: [facility] [address] [place] [phone] Performing Lab: [facility] [address] [place] [phone] [facility] COMPREHEN SIVE METABOLIC PANEL ALBUMIN [MASS/VOLUM E] IN SERUM OR PLASMA 4.1 g/dL 3.4 - 5 09/25 Specimen Type: PLASMA Comment: No hemolysis noted. Ordering Provider: PRIMO PANCHAL Report Released Date/Time: Sep 26, 2023 10:20 AM Reporting Lab: [facility] [address] [facility] [phone] Performing Lab: [place] [address] [facility] [phone] [facility] COMPREHEN SIVE METABOLIC PANEL BILIRUBIN.T OTAL [MASS/VOLUM E] IN SERUM OR PLASMA 1.0 mg/dL 0.2 - 1.2 09/25 Specimen Type: PLASMA Comment: No hemolysis noted. Ordering Provider: PRIMO PANCHAL Report Released Date/Time: Sep 26, 2023 10:20 AM Reporting Lab: [address] [phone] Performing Lab: [place] [address] [facility] [phone] [facility] COMPREHEN SIVE METABOLIC PANEL ALKALINE PHOSPHATASE [ENZYMATIC ACTIVITY/VO LUME] IN SERUM OR PLASMA 84 U/L 40 - 150 09/25 Specimen Type: PLASMA Comment: No hemolysis noted. Ordering Provider: PRIMO PANCHAL Report Released Date/Time: Sep 26, 2023 10:20 AM Reporting Lab: [address] [phone] Performing Lab: [place] [address] [facility] [phone] [facility] COMPREHEN SIVE METABOLIC PANEL ASPARTATE AMINOTRANSF ERASE [ENZYMATIC ACTIVITY/VO LUME] IN SERUM OR PLASMA 21 U/L 5 - 34 09/25 Specimen Type: PLASMA Comment: No hemolysis noted. Ordering Provider: PRIMO PANCHAL Report Released Date/Time: Sep 26, 2023 10:20 AM Reporting Lab: [facility] [address] [place] [phone] Performing Lab: [facility] [address] [facility] [phone] [place] [address] COMPREHEN SIVE METABOLIC PANEL ALANINE AMINOTRANSF ERASE [ENZYMATIC ACTIVITY/VO LUME] IN SERUM OR PLASMA 18 U/L 8 - 40 09/25 Specimen Type: PLASMA Comment: No hemolysis noted. Ordering Provider: PRIMO PANCHAL Report Released Date/Time: Sep 26, 2023 10:20 AM Reporting Lab: [facility] [address] [place] [phone] Performing Lab: [facility] [address] [place] [phone] [place] [address] COMPREHEN SIVE METABOLIC PANEL GLOMERULAR FILTRATION RATE/1.73 SQ M.PREDICTED [VOLUME RATE/AREA] IN SERUM, PLASMA OR BLOOD BY CREATININE- BASED FORMULA (CKD-EPI 2020) 59.0 60 09/25 Specimen Type: PLASMA Comment: No hemolysis noted. Ordering Provider: PRIMO PANCHAL Report Released Date/Time: Sep 26, 2023 10:20 AM Reporting Lab: [facility] [address] [facility] [phone] Performing Lab: [facility] [address] [place] [address] [place] [address] HGA1C HEMOGLOBIN A1C/HEMOGLO BIN.TOTAL IN BLOOD 7.4 4.0 - 6.0 09/25 H Specimen Type: BLOOD No comment entered. Ordering Provider: PRIMO PANCHAL Report Released Date/Time: Sep 26, 2023 10:20 AM Reporting Lab: [facility] [address] [facility] [address] Performing Lab: [facility] [address] [place] [phone] [place] [address] LIPID PANEL (STL) CHOLESTEROL [MASS/VOLUM E] IN SERUM OR PLASMA 154 mg/dL 0 - 200 09/25 Specimen Type: PLASMA Comment: No hemolysis noted. Ordering Provider: PRIMO PANCHAL Report Released Date/Time: Sep 26, 2023 10:20 AM Reporting Lab: [facility] [address] [facility] [phone] Performing Lab: [facility] [address] [facility] [address] [facility] LIPID PANEL (STL) TRIGLYCERID E [MASS/VOLUM E] IN SERUM OR PLASMA 209 mg/dL 0 - 150 09/25 H Specimen Type: PLASMA Comment: No hemolysis noted. Ordering Provider: PRIMO PANCHAL Report Released Date/Time: Sep 26, 2023 10:20 AM Reporting Lab: [facility] [address] [facility] [phone] Performing Lab: [phone] [place] [address] LIPID PANEL (STL) CHOLESTEROL IN LDL [MASS/VOLUM E] IN SERUM OR PLASMA BY CALCULATION 69 mg/dL 09/25 Specimen Type: PLASMA Comment: No hemolysis noted. Ordering Provider: PRIMO PANCHAL Report Released Date/Time: Sep 26, 2023 10:20 AM Reporting Lab: [facility] [address] [facility] [address] Performing Lab: [facility] [address] [facility] LIPID PANEL (STL) CHOLESTEROL IN HDL [MASS/VOLUM E] IN SERUM OR PLASMA 43 mg/dL 40 09/25 Specimen Type: PLASMA Comment: No hemolysis noted. Ordering Provider: PRIMO PANCHAL Report Released Date/Time: Sep 26, 2023 10:20 AM Reporting Lab: [facility] [address] [facility] [phone] Performing Lab: [facility] [address] [place] [phone] [facility] MICRAL/CR EAT PROFILE (STL) ALBUMIN [MASS/VOLUM E] IN URINE 27.5 mg/L 09/25 Specimen Type: URINE No comment entered. Ordering Provider: PRIMO PANCHAL Report Released Date/Time: Sep 26, 2023 10:20 AM Reporting Lab: [facility] [phone] Performing Lab: [address] [phone] [place] [address] MICRAL/CR EAT PROFILE (STL) ALBUMIN/CRE ATININE [MASS RATIO] IN URINE 55 mg/g 0 - 29 09/25 H Specimen Type: URINE No comment entered. Ordering Provider: PRIMO PANCHAL Report Released Date/Time: Sep 26, 2023 10:20 AM Reporting Lab: [facility] [address] Performing Lab: [place] [id number] MICRAL/CR EAT PROFILE (STL) CREATININE [MASS/VOLUM E] IN URINE 50.4 mg/dL 63 - 166 09/25 L Specimen Type: URINE No comment entered. Ordering Provider: PRIMO PANCHAL Report Released Date/Time: Sep 26, 2023 10:20 AM Reporting Lab: [address] [phone] Performing Lab: [address] [phone] [place] [address] PROTEIN ELECTROPH ORESIS BLOOD ALPHA 1 GLOBULIN [MASS/VOLUM E] IN SERUM OR PLASMA BY ELECTROPHOR ESIS 0.3 g/dL 0.2 - 0.3 09/25 Specimen Type: SERUM Comment: No M Leandro detected. Reference Range: None Detected Normal Serum Protein Electrophor esis Pattern. No abnormal protein bands (M-protein) detected. Test Performed by [facility], [facility] [facility], [address] [place] [address] Alfred Aly M.D., Ph.D., Director of Laboratorie s , CLIA [id number] Ordering Provider: PRIMO PANCHAL Report Released Date/Time: Sep 26, 2023 10:20 AM Reporting Lab: [facility] [phone] Performing Lab: [address] [facility] PROTEIN ELECTROPH ORESIS BLOOD ALPHA 2 GLOBULIN [MASS/VOLUM E] IN SERUM OR PLASMA BY ELECTROPHOR ESIS 0.8 g/dL 0.5 - 0.9 09/25 Specimen Type: SERUM Comment: No M Leandro detected. Reference Range: None Detected Normal Serum Protein Electrophor esis Pattern. No abnormal protein bands (M-protein) detected. Test Performed by [employer] [facility], [address] [place] [address] Alfred Aly M.D., Ph.D., Director of Laboratorie s , CLIA [id number] Ordering Provider: PRIMO PANCHAL Report Released Date/Time: Sep 26, 2023 10:20 AM Reporting Lab: [place] [id number] Performing Lab: [address] [facility] PROTEIN ELECTROPH ORESIS BLOOD BETA 2 GLOBULIN [MASS/VOLUM E] IN SERUM OR PLASMA BY ELECTROPHOR ESIS 0.5 g/dL 0.4 - 0.6 09/25 Specimen Type: SERUM Comment: No M Leandro detected. Reference Range: None Detected Normal Serum Protein Electrophor esis Pattern. No abnormal protein bands (M-protein) detected. Test Performed by [employer] [facility], [address] [place] [address] Alfred Aly M.D., Ph.D., Director of Laboratorie s , CLIA [id number] Ordering Provider: PRIMO PANCHAL Report Released Date/Time: Sep 26, 2023 10:20 AM Reporting Lab: [place] [phone] Performing Lab: [address] [facility] PROTEIN ELECTROPH ORESIS BLOOD GAMMA GLOBULIN [MASS/VOLUM E] IN SERUM OR PLASMA BY ELECTROPHOR ESIS 0.9 g/dL 0.8 - 1.7 09/25 Specimen Type: SERUM Comment: No M Leandro detected. Reference Range: None Detected Normal Serum Protein Electrophor esis Pattern. No abnormal protein bands (M-protein) detected. Test Performed by [employer], [employer] [facility], [address] [place] [address] Alfred Aly M.D., Ph.D., Director of Laboratorie s , CLIA [id number] Ordering Provider: PRIMO PANCHAL Report Released Date/Time: Sep 26, 2023 10:20 AM Reporting Lab: [address] [phone] Performing Lab: [address] [facility] PROTEIN ELECTROPH ORESIS BLOOD PROTEIN [MASS/VOLUM E] IN SERUM OR PLASMA 6.8 g/dL 6.1 - 8.1 09/25 Specimen Type: SERUM Comment: No M Leandro detected. Reference Range: None Detected Normal Serum Protein Electrophor esis Pattern. No abnormal protein bands (M-protein) detected. Test Performed by [employer], [employer] [facility], [address] [place] [address] Alfred Aly M.D., Ph.D., Director of Laboratorie s , CLIA [id number] Ordering Provider: PRIMO PANCHAL IE Report Released Date/Time: Sep 26, 2023 10:20 AM Reporting Lab: [address] [phone] Performing Lab: [address] [facility] PROTEIN ELECTROPH ORESIS BLOOD ALBUMIN/PRO TEIN.TOTAL IN BODY FLUID BY ELECTROPHOR ESIS 3.8 g/dL 3.8 - 4.8 09/25 Specimen Type: SERUM Comment: No M Leandro detected. Reference Range: None Detected Normal Serum Protein Electrophor esis Pattern. No abnormal protein bands (M-protein) detected. Test Performed by [employer], [address] [place] [address] Alfred Aly M.D., Ph.D., Director of Laboratorie s , CLIA [id number] Ordering Provider: PRIMO PANCHAL IESE Report Released Date/Time: Sep 26, 2023 10:20 AM Reporting Lab: [facility] [address] [place] [phone] Performing Lab: [address] [facility] PROTEIN ELECTROPH ORESIS BLOOD BETA 2 GLOBULIN [MASS/VOLUM E] IN SERUM OR PLASMA BY ELECTROPHOR ESIS 0.4 g/dL 0.2 - 0.5 09/25 Specimen Type: SERUM Comment: No M Leandro detected. Reference Range: None Detected Normal Serum Protein Electrophor esis Pattern. No abnormal protein bands (M-protein) detected. Test Performed by [employer] [facility], [address] [place] [address] Alfred Aly M.D., Ph.D., Director of Laboratorie s , CLIA [id number] Ordering Provider: PRIMO PANCHAL IESE Report Released Date/Time: Sep 26, 2023 10:20 AM Reporting Lab: [facility] [address] [place] [phone] Performing Lab: [address] [facility] PROTEIN ELECTROPH ORESIS BLOOD INTERPRETAT ION AND REVIEW OF LABORATORY RESULTS SEE NOTE 09/25 Specimen Type: SERUM Comment: No M Leandro detected. Reference Range: None Detected Normal Serum Protein Electrophor esis Pattern. No abnormal protein bands (M-protein) detected. Test Performed by [employer] [facility], [address] [place] [address] Alfred Aly M.D., Ph.D., Director of Laboratorie s , CLIA [id number] Ordering Provider: PRIMO PANCHAL Report Released Date/Time: Sep 26, 2023 10:20 AM Reporting Lab: [facility] [address] [facility] [phone] Performing Lab: [address] [facility] PROTEIN ELECTROPH ORESIS BLOOD PROTEIN.MON OCLONAL BAND 1 [MASS/VOLUM E] IN SERUM OR PLASMA BY ELECTROPHOR ESIS SEE NOTE 09/25 Specimen Type: SERUM Comment: No M Leandro detected. Reference Range: None Detected Normal Serum Protein Electrophor esis Pattern. No abnormal protein bands (M-protein) detected. Test Performed by [employer], [employer] [facility], [address] [place] [address] Alfred Aly M.D., Ph.D., Director of Laboratorie s , CLIA [id number] Ordering Provider: PRIMO PANCHAL Report Released Date/Time: Sep 26, 2023 10:20 AM Reporting Lab: [facility] [address] [place] [phone] Performing Lab: [address] [facility] GLUCOSE,B LOOD-poct (STL) GLUCOSE [MASS/VOLUM E] IN BLOOD BY AUTOMATED TEST STRIP 181 mg/dL 72 - 99 09/25 H Specimen Type: BLOOD Comment: Test Performed by: [id number] Meter #: [id number] Ordering Provider: PRIMO PANCHAL Report Released Date/Time: Sep 26, 2023 03:59 PM Reporting Lab: [place] [id number] [facility] [phone] Performing Lab: [address] [phone] [facility] Vital Signs Combined list of inpatient and outpatient Vital Signs from Department of Defense and Veterans Affairs, ranging from 12 months to all on record, depending upon the facility. Vital Sign Value Date Comments Source SYSTOLIC BLOOD PRESSURE 148 07/03/2024 10:26:25 [facility] DIASTOLIC BLOOD PRESSURE 90 07/03/2024 10:26:25 [facility] PULSE OXIMETRY 97 07/03/2024 10:26:25 [facility] WEIGHT 168.9 07/03/2024 10:26:25 [facility] BMI 30kg/m2 07/03/2024 10:26:25 [facility] PAIN 0 07/03/2024 10:26:25 [facility] HEIGHT 63 07/03/2024 10:26:25 [facility] TEMPERATURE 97.3 07/03/2024 10:26:25 [facility] PULSE 68 07/03/2024 10:26:25 [facility] RESPIRATION 20 07/03/2024 10:26:25 [facility] SYSTOLIC BLOOD PRESSURE 134 04/25/2024 15:04:21 [facility] DIASTOLIC BLOOD PRESSURE 67 04/25/2024 15:04:21 [facility] PULSE OXIMETRY 97 04/25/2024 15:04:21 [facility] WEIGHT 172 04/25/2024 15:04:21 [facility] BMI 30kg/m2 04/25/2024 15:04:21 [facility] PAIN 4 04/25/2024 15:04:21 [facility] TEMPERATURE 97.8 04/25/2024 15:04:[address] [facility] PULSE 70 04/25/2024 15:04:21 [facility] RESPIRATION 16 04/25/2024 15:04:[address] [facility] SYSTOLIC BLOOD PRESSURE 165 09/26/2023 09:50:43 [facility] DIASTOLIC BLOOD PRESSURE 77 09/26/2023 09:50:43 [facility] PULSE OXIMETRY 97 09/26/2023 09:50:43 [facility] WEIGHT 174.2 09/26/2023 09:50:43 [facility] BMI 30kg/m2 09/26/2023 09:50:43 [facility] PAIN 0 09/26/2023 09:50:43 [facility] TEMPERATURE 97.7 09/26/2023 09:50:[address] [facility] PULSE 60 09/26/2023 09:50:43 [facility] RESPIRATION 16 09/26/2023 09:50:[address] [facility] Encounters Combined list of: 1) Encounters from Department of [facility] facilities going back up to thelast 18 months. 2) Encounters from the Department of [facility] facilities going back up to 280 months. Location Location Details Encounter Type Encounter Number Reason For Visit Attending Provider ADM Date DC Date Status Disposition Source [facility] Outpatient Encounter [id number] KLIPFEL,LA URENCIA A 02/21 [facility] HEARING AID REPAIR/MOD IFYING [id number] Diagnos is: ICD-10- CM H90.3 Sensori neural hearing loss, bilater al
SHANELL CASTELAN 02/27 [facility] Outpatient Encounter [id number] KLIPFEL,LA URENCIA A 04/26 [facility] [id number] Diagnos is: ICD-10- CM Z00.01 Encount er for general adult medical exam w abnorma l finding s
TATIANNA PANCHAL 04/27 [facility] Outpatient Encounter [id number] 04/28 [facility] APPLICATIO N OF FINGER SPLINT [id number] Diagnos is: ICD-10- CM M79.643 Pain in unspeci fied hand
TRACY BELTRAN AN T 05/25 [facility] Outpatient Encounter [id number] CHELSEY TRACY URECONSTANCEIA A 06/01 [facility] Outpatient Encounter 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
DAVIDSON DOBBINS 06/13 [facility] EYE EXAM&TX ESTAB PT 1/>VST [id number] Diagnos is: ICD-10- CM H25.13 Age-rel ated nuclear catarac t, bilater al
Chiki PLEITEZ III 06/13 [facility] Outpatient Encounter [id number] Chiki PLEITEZ B III 06/30 [facility] HLTH BHV ASSMT/REAS SESSMENT [id number] Diagnos is: ICD-10- CM R54 Age-rel ated physica l debilit y
JEAN CHAVARRIA 07/05 [facility] Outpatient Encounter [id number] 08/03 [facility] AQUATIC THERAPY/EX ERCISES [id number] Diagnos is: ICD-10- CM R54 Age-rel ated physica l debilit y
WILLJEAN 08/03 [facility] Outpatient Encounter [id number] 08/08 [facility] Outpatient Encounter [id number] KLIPFEL,LA URENCIA A 08/08 [facility] THERAPEUTI C EXERCISES [id number] Diagnos is: ICD-10- CM R54 Age-rel ated physica l debilit y
WILLJEAN 08/16 [facility] THERAPEUTI C EXERCISES [id number] Diagnos is: ICD-10- CM R54 Age-rel ated physica l debilit y
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
RECORDRICHELLE IEL E 10/08 [facility] Outpatient Encounter [id number] TATIANNA PANCHAL 10/31 [facility] Outpatient Encounter [id number] 03/13 [facility] Outpatient Encounter [id number] BUCKKELLEE RY A 04/23 [facility] N [facility] R E [facility] OFFICE O/P EST MOD 30 MIN [id number] Diagnos is: ICD-10- CM I10 Essenti al (primar y) hyperte nsion<b r/> TATIANNA PANCHAL 04/25 [facility] OFFICE O/P NEW MOD 45 MIN [id number] Diagnos is: ICD-10- CM L57.0 Actinic keratos is
AB JJ BY RR 05/28 [facility] OFFICE O/P EST MOD 30 MIN [id number] Diagnos is: ICD-10- CM H25.13 Age-rel ated nuclear catarac t, bilater al
Chiki PLEITEZ III 06/04 [facility] CMPTR OPHTH IMG OPTIC NERVE [id number] Diagnos is: ICD-10- CM H25.813 Combine d forms of age-rel ated catarac t, bilater al
Mina NIEVES HUGO S 06/04 [facility] Outpatient Encounter [id number] JASSIM,MARYANN R 06/07 [facility] HEARING AID FITTING/CH ECKING [id number] Diagnos is: ICD-10- CM H90.3 Sensori neural hearing loss, bilater al
Chiki CHAPMAN N 06/19 [facility] OFF/OP CNSLTJ NEW/EST MOD 40 [id number] Diagnos is: ICD-10- CM C43.62 Maligna nt melanom a of left upper limb, includi ng shoulde r
AFT,REBDARON A 06/21 [facility] HEARING AID FITTING/CH ECKING [id number] Diagnos is: ICD-10- CM H90.3 Sensori neural hearing loss, bilater al
ELIO MONTES 06/24 [facility] Outpatient Encounter [id number] 06/24 [facility] N [facility] Outpatient Encounter [id number] CASPERJaqueline LESTERJaqueline Rachel 07/01 [facility] N [facility] OFFICE O/P NEW LOW 30 MIN [id number] Diagnos is: ICD-10- CM C43.9 Maligna nt melanom a of skin, unspeci fied
HUONG WEATHERS 07/03 [facility] N [facility] Outpatient Encounter [id number] Diagnos is: ICD-10- CM Z01.818 Encount er for other preproc edural examina tion
LACHO BARLOW F 07/04 [facility] N [facility] HEARING AID SUP/ACCESS /DEV [id number] Diagnos is: ICD-10- CM H90.3 Sensori neural hearing loss, bilater al
Chiki CHAPMAN 07/15 [facility] Social History Combined list of available smoking, tobacco, and other social history from Department of Defense and [facility] facilities. Social History Type Response Date Comment Source Tobacco smoking status NHIS VA-TOBACCO FORMER USER 04/25/2024 [facility] History of tobacco use VA-TOBACCO QUIT 15 YRS OR MORE 04/25/2024 [facility] History of tobacco use VA-TOBACCO NEVER USED 04/27/2023 [facility] History of tobacco use VA-TOBACCO NEVER USED 03/11/2022 [facility] History of tobacco use VA-TOBACCO QUIT 15 YRS OR MORE 03/26/2021 [facility] History of tobacco use VA-TOBACCO NEVER USED 10/16/2019 [facility] History of tobacco use VA-TOBACCO FORMER USER 11/13/2017 [facility] History of tobacco use QUIT TOBACCO >7 YEARS AGO 10/24/2017 [facility] History of tobacco use QUIT TOBACCO >7 YEARS AGO 12/07/2015 [facility] History of tobacco use QUIT TOBACCO >7 YEARS AGO 05/20/2014 [facility] History of tobacco use QUIT TOBACCO >7 YEARS AGO 02/19/2013 [facility] History of tobacco use NO TOBACCO >12M <7YR 09/09/2009 [facility] History of tobacco use QUIT TOBACCO >7 YEARS AGO 12/20/2006 [facility] History of tobacco use CURRENT NON-TOBACCO USER-HX OF USE 06/12/2006 [facility] History of tobacco use CURRENT NON-TOBACCO USER-HX OF USE 12/07/2005 [facility] History of tobacco use CURRENT NON-TOBACCO USER-HX OF USE 03/21/2005 [facility] History of tobacco use CURRENT NON-TOBACCO USER-HX OF USE 03/03/2004 [facility] History of tobacco use CURRENT NON-TOBACCO USER-HX OF USE 04/21/2003 QUIT 1972 [facility] History of tobacco use CURRENT NON-TOBACCO USER-RECENTLY QUIT 11/07/2002 quit 1972 [facility] History of tobacco use CURRENT NON-TOBACCO USER-HX OF USE 11/08/2001 quit 20 yrs. ago [facility] Plan of Care List of future care activities from Department of [facility] facilities. Additional future care activities may be listed in the Assessment and Plan section. Date/Time Care Activity Care Activity Detail Facili ty 07/30/2024 AMBULATORY - NONE AMBULATORY - NONE [facility] 07/31/2024 AMBULATORY - NONE AMBULATORY - NONE [facility] 10/02/2024 AMBULATORY - MEDICINE AMBULATORY - MEDICI NE [facility] 11/25/2024 AMBULATORY - MEDICINE AMBULATORY - MEDICI [facility] 11/27/2024 AMBULATORY - SURGERY AMBULATORY - SURGERY [facility] 07/30/2024 Imaging - Nuclear Medicine Order NM LYMPH NODE IMAGING- P [facility] 07/31/2024 Pharmacy - Clinic Infusion Order [facility] Advance Directives List of completed, amended, or rescinded Advance Directives on record at Department of [facility] facilities. An actual copy of the Directive is not included. Date Advance Directive Provider Source 03/26/2021 ADVANCE DIRECTIVE DISCUSSION Jaqueline LEON [facility] 06/12/2014 ADVANCE DIRECTIVE DISCUSSION GÓMEZ ESPINAL [facility]
--- OUTSIDE RECORDS SUMMARY | 2024-07-23 06:09 | XMS_ITS | Encounter Summary ---
Author Name [facility] [facility] [place] Address [address] [place] [address] Care Team Providers Care Director Of Placement Name Role Phone KRISTINA PANCHAL Primary Care Provider UnavailJANKI Sneed Unavailable Unavailable Insurance Providers: All historical and current Section Date Range: From patient's date of to the date document was created. This section includes the names of all active insurance providers for the patient. Insurance Provider Type of Coverage Plan Name Start of Policy Coverage End of Policy Coverage Group Number Member ID Insurance Provider's Telephone Number Policy Herrera's Name Patient's Relationship to Policy Herrera [place] PREFERRED PROVIDER ORGANIZAT ION (PPO) FEP STAND COURTNEY PLUS 1 Jul 24, 2015 [id number] [phone] PAYAM ZHENG PATIENT AN[place] F[place] PREFERRED PROVIDER ORGANIZAT ION (PPO) FEP STAND COURT[place] PLUS 1 Jul 24, 2015 106 [id number] [phone] PAYAM ZHENG PATIENT [place] PREFERRED PROVIDER ORGANIZAT ION (PPO) FEP STAND COURT[place] PLUS 1 Jul 24, 2015 106 [id number] [phone] PAYAM ZHENG PATIENT BCBS FEP RETIREE [id number] Jan 22, 2004 [id number] PAYAM ZHENG PATIENT [place] PREFERRED PROVIDER ORGANIZAT ION (PPO) FEP STAND COURTNEY PLUS 1 Jul 24, 2015 106 [id number] [phone] PAYAM ZHENG PATIENT [place] FEP PRESCRIPT ION [id number] Jan 22, 2004 [id number] PAYAM ZHENG PATIENT MEDICARE (WNR) MEDICARE (M) PART A Jan 22, 2004 PART A [id number] PAYAM ZHENG PATIENT MEDICARE (WNR) MEDICARE (M) PART B Jan 22, 2004 PART B [id number] PAYAM ZHENG PATIENT MEDICARE (WNR) MEDICARE (M) PART A Jan 22, 2004 PART A [id number] PAYAM ZHENG PATIENT MEDICARE (WNR) MEDICARE (M) PART B Jan 22, 2004 PART B [id number] PAYAM ZHENG PATIENT Selected Encounter This section includes the information on record at [place] for the Encounter. Date/Time Encounter Type Encounter Description Reason Provider Source Aug 16, 2023 08:30 AM THERAPEUTIC EXERCISES RECREATION THERAPY SERVICE ICD-10-CM R54 Age-related physical debility JEAN CHAVARRIA Gerardo Encounter Template Text not used by [place] Assessments - Encounter Diagnoses This section includes the primary and secondary diagnoses documented for the Encounter. Date/Time Primary/Secondary Diagnosis Diagnosis Name Provider Source Aug 16, 2023 09:15 AM PRIMARY Age-related physical debility JEAN CHAVARRIA [facility] Plan of Treatment: Future Appointments (+ 6 months) and Future Tests (+/- 45 days) The Plan of Treatment section includes future care activities for the patient from all [place] treatmentfacilities. This section includes future appointments and future orders which are active, pending or scheduled. Future Appointments This section includes appointments that were scheduled to occur 6 months from the date of the Encounter, up to a maximum of 20 appointments. The data comes from all [place] treatment facilities. Appointment Date/Time Appointment Type Appointme nt Facility Name Aug 18, 2023 08:30 AM AMBULATORY - REHAB MEDICIN E [facility] Sep 26, 2023 10:00 AM AMBULATORY - MEDICINE [facility] Oct 09, 2023 11:00 AM AMBULATORY - NONE [facility] Active, Pending, and Scheduled Orders This section includes a listing of several types of active, pending, and scheduled orders, including clinic medications orders, diagnostic test orders, procedure orders and consult orders; where the start date of the order is 45 days before the date of the Encounter or 45 days after the date of theEncounter. The data comes from all [place] treatment facilities. Test Date/Time Test Type Test Details Facility Name Jul 11, 2023 12:00 AM Laboratory - Chemi stry Order MICRAL/CREAT PROFILE (STL) URINE SP [facility] Advance Directives: All historical and current Section Date Range: From patient's date of to the date document was created. This section includes ALL of a patient's completed or amended [place] Advance and Rescinded Directives. The entries below indicate that a directive exists for the patient, but an actual copy is not included with this document. The data comes from all [place] facilities. Date Advance Directives Provider Source Mar 26, 2021 ADVANCE DIRECTIVE DISCUSSION Jaqueline LEON [facility] Jun 12, 2014 ADVANCE DIRECTIVE DISCUSSION GÓMEZ ESPINAL [facility] Encounter Notes: All associated encounter notes This section contains the clinical notes associated to the Encounter. Date/Time Encounter Note(s) Provider Source Aug 16, 2023 09:13 AM RECREATIONAL THERA PY NOTE: LOCAL TITLE: RT OPT EXERCISE AQUATIC CLINIC PROGRESS STL STANDARD TITLE: RECREATIONAL THERAPY NOTE DATE OF NOTE: AUG 16, 2023@09:13 ENTRY DATE: AUG 16, 2023@09:13:04 AUTHOR: JEAN CHAVARRIA EXP COSIGNER: URGENCY: STATUS: COMPLETED Recreation Therapy Exercise Clinic Progress Note: Referring MD:Job Referring DX:[id number]. Patient attended scheduled Recreation Therapy Outpatient Exercise Clinic Appointment. Session lasted 60 minutes and was conducted by MICHAEL Mack. Patient came ready to learn and there has been no change to the initial assessment. Plan for care: Therapist will develop individual exercise prescription and monitor patient during clinic visits. Treatment will consist of stretching, walking, weight lifting, treadmill, elliptical, stationary bike and other exercise equipment. Recreation Therapist will assist patient in reaching their goals. Patient followed prescribed exercise routine and entered the following into exercise lo minute warm up Walk. Pt walked 6 laps (Laps are equal to 240 ft/lap). Cardiovascular Equipment Used: Stationary/Recumbent Bike:NuStep, 20 min Treadmill: Elliptical: Weight Machines Used: educated and trained on all [facility] equipment on this date: Rotary Torso Abdominal Crunch Low Back Exercise Butterfly Compound (Lat)Row Preacher Curl Triceps Press Seated Leg Curl Vertical Chest Press Overhead Shoulder Press Leg Extension Leg Press Calf Press Lateral Shoulder Raise Treatment Plan: REHABILITATION GOALS: Short Term Goal: Patient will be able to tolerate prescribed exercise routine. Patient will be given 1-4 appointments for therapy Timeframe: First Visit - goal met 08/03/23 Furniture Assembler Goal: Patient will be able to self-direct land based/aquatic exercise. Patient will be able to document their own exercise progress Timeframe: Last Visit PLAN: 1. Attend Exercise orientation 2. Report chest pain to therapist if present 3. Measure walking distance pre and post rehab during the 6 minute walk 4. Perform aerobic exercise 20 min - 1 occasion per week 5. Perform strength training - 1 occasion per week Therapist will develop individual exercise program and monitor patient during clinic visits. Treatment will consist of warm up walking, aerobic exercise and strength training (if appropriate). /yesenia/ MICHAEL Bae Recreation Therapist Signed: 08/16/2023 09:15 JEAN CHAVARRIA [facility]
--- OUTSIDE RECORDS SUMMARY | 2024-07-23 06:09 | XMS_ITS | Encounter Summary ---
Author Name [facility] [place] Address [address] [place] [address] Care Team Providers Care Machine Installer Name Role Phone ABDULKADIR KRISTINA Primary Care Provider Unavailab JANKI Lara Unavailable Unavailable Insurance Providers: All historical and [...] COURTNEY PLUS 1 Jul 24, 2015 106 [id number] [phone] PAYAM GONZALEZ PATIENT ANTHE[place] [employer] FEP PREFERRED PROVIDER ORGANIZAT ION (PPO) FEP STAND COURTNEY PLUS 1 Jul 24, 2015 106 [id number] [phone] PAYAM GONZALEZ PATIENT AN[place] F[place] PREFERRED PROVIDER ORGANIZAT ION (PPO) FEP STAND COURTNEY PLUS 1 Jul 24, 2015 106 [id number] [phone] PAYAM GONZALEZ PATIENT BCBS FEP RETIREE [id number] Jan 22, 2004 105 [id number] PAYAM GONZALEZ PATIENT [place] F[place] PREFERRED PROVIDER ORGANIZAT ION (PPO) FEP STAND COURTNEY PLUS 1 Jul 24, 2015 106 [id number] [phone] PAYAM GONZALEZ PATIENT [place] FEP PRESCRIPT ION [id number] Jan 22, 2004 [id number] PAYAM GONZALEZ PATIENT MEDICARE (WNR) MEDICARE (M) PART A Jan 22, 2004 PART A [id number] PAYAM GONZALEZ PATIENT MEDICARE (WNR) MEDICARE (M) PART B Jan 22, 2004 PART B [id number] PAYAM GONZALEZ PATIENT MEDICARE (WNR) MEDICARE (M) PART A Jan 22, 2004 PART A [id number] PAYAM GONZALEZ PATIENT MEDICARE (WNR) MEDICARE (M) PART B Jan 22, 2004 PART B [id number] PAYAM GONZALEZ PATIENT Selected Encounter This section includes the information on record at [place] for the Encounter. Date/Time Encounter Type Encounter Description Reason Provider Source Aug 08, 2023 03:56 PM Outpatient Encounter PRIMARY CARE/MEDICINE ERNESTO OZUNA [facility] Encounter Template Text not used by [place] Plan of Treatment: Future Appointments (+ 6 months) and Future Tests (+/- 45 days) The Plan of Treatment section includes future care activities for the patient from all [place] treatmentfacilities. This section includes future appointments and future orders which are active, pending or scheduled. Future Appointments This section includes appointments that were scheduled to occur 6 months from the date of the Encounter, up to a maximum of 20 appointments. The data comes from all [place] treatment facilities. Appointment Date/Time Appointment Type Appointme nt Facility Name Aug 16, 2023 08:30 AM AMBULATORY - [facility]AB MEDIC[facility] Aug 18, 2023 08:30 AM AMBULATORY - REHAB MEDICIN E [facility] Sep 26, 2023 10:00 AM AMBULATORY - MEDICINE [facility] Oct 09, 2023 11:00 AM AMBULATORY - NONE [facility] Active, Pending, and Scheduled Orders This section includes a listing of several types of active, pending, and scheduled orders, including clinic medications orders, diagnostic test orders, procedure orders and consult orders; where the start date of the order is 45 days before the date of the Encounter or 45 days after the date of theEncounter. The data comes from all [place] treatment facilities. Test Date/Time Test Type Test Details Facility Name Jul 11, 2023 12:00 AM Laboratory - Chemi stry Order MICRAL/CREAT PROFILE (STL) URINE SP [facility] Social History: Smoking Status (Most current) and Tobacco Use (All prior to encounter date) This section includes the most current, and the historical, smoking and tobacco- related health factors from the [place] facility where the Encounter took place. Current Smoking Status This section includes the most current smoking, or tobacco-related health factor, from the [place] facility where the Encounter took place. Date/Time Current Smoking Status Comment Leonela rfanco December 07, 2015 03:10 PM QUIT TOBACCO >7 YEARS AGO [facility] Tobacco Use History This section includes a history of the smoking, or tobacco-related health factors, that were collected on or before the date of the Encounter. The data comes from the [place] facility where the Encounter took place. Date/Time Smoking Status/Tobacco Use Comment F acility May 20, 2014 09:22 AM QUIT TOBACCO >7 YEARS AGO [facility] Feb 19, 2013 09:01 AM QUIT TOBACCO >7 YEARS AGO [facility] December 20, 2006 08:06 AM QUIT TOBACCO >7 YEARS AGO [facility] Jun 12, 2006 09:00 AM CURRENT NON-TOBACC O USER-HX OF USE [facility] Jun 12, 2006 09:00 AM TOBACCO TERMINATION STAGE [facility] December 07, 2005 11:12 AM CURRENT NON-TOBACC O USER-HX OF USE [facility] December 07, 2005 11:12 AM TOBACCO TERMINATION STAGE [facility] Mar 21, 2005 01:46 PM CURRENT NON-TOBACC O USER-HX OF USE [facility] Mar 21, 2005 01:46 PM TOBACCO TERMINATION STAGE [facility] Mar 03, 2004 09:58 AM CURRENT NON-TOBACC O USER-HX OF USE [facility] Mar 03, 2004 09:58 AM TOBACCO TERMINATION STAGE [facility] Apr 21, 2003 09:25 AM CURRENT NON-TOBACC O USER-HX OF USE QUIT [address] [place] [address] Apr 21, 2003 09:25 AM CURRENT NON-TOBACC O USER-RECENTLY QUIT quit [address] [place] [address] Apr 21, 2003 09:25 AM TOBACCO USE quit [address] [place] [address] Nov 07, 2002 09:14 AM CURRENT NON-TOBACC O USER-RECENTLY QUIT quit [address] [place] [address] Nov 07, 2002 09:14 AM TOBACCO USE quit [address] [place] [address] Nov 08, 2001 08:09 AM CURRENT NON-TOBACC O USER-HX OF USE quit 20 yrs. ago [facility] Advance Directives: All historical and current Section Date Range: From patient's date of to the date document was created. This section includes ALL of a patient's completed or amended [place] Advance and Rescinded Directives. The entries below indicate that a directive exists for the patient, but an actual copy is not included with this document. The data comes from all [place] facilities. Date Advance Directives Provider Source Mar 26, 2021 ADVANCE DIRECTIVE DISCUSSION Jaqueline LEON [facility] Jun 12, 2014 ADVANCE DIRECTIVE DISCUSSION GÓMEZ ESPINAL [facility] Encounter Notes: All associated encounter notes This section contains the clinical notes associated to the Encounter. Date/Time Encounter Note(s) Provider Source Aug 08, 2023 03:56 PM PRIMARY CARE SECUR E MESSAGING: LOCAL TITLE: PRIMARY CARE SECURE MESSAGING STANDARD TITLE: PRIMARY CARE SECURE MESSAGING DATE OF NOTE: AUG 08, 2023@15:56 ENTRY DATE: AUG 08, 2023@14:56:07 AUTHOR: LACIE OZUNA COSIGNER: URGENCY: STATUS: COMPLETED ------Original Message --------- Sent: 08/04/2023 12:40 PM ET From: VAUGHN GONZALEZ To: ST, 4_ABDULKADIR Mina_Primary Care, [facility] Subject: General:RSV Shot I want to inform you that I got a RSV shot in left arm at [facility] in [place], [place] on 08/03/2023. Please update my record with this information. Vaughn Gonzalez Last 4--- [phone] Thank You ------Original Message --------- Sent: 08/08/2023 03:55 PM ET From: LACIE OZUNA To: VAUGHN GONZALEZ Subject: General:RSV Shot Thanks for the update Mr. Gonzalez. I have updated your record. Sonia Ozuna, manager sign /es/ LACIE OZUNA MSN RN REGISTERED NURSE Signed: 08/08/2023 14:56 LACIE OZUNA [facility]
--- OUTSIDE RECORDS SUMMARY | 2024-07-23 06:09 | XMS_ITS | Encounter Summary ---
Author Name [facility] [place] [facility] [place] Address [address] [place] [address] Care Team Providers Care Broadcast Journalist Name Role Phone PANCHAL, KRISTINA Primary Care Provider Unavailab JANKI Lara [...] COURTNEY PLUS 1 Jul 24, 2015 106 [id number] [phone] PAYAM ZHENG PATIENT [place] F[place] PREFERRED PROVIDER ORGANIZAT ION (PPO) FEP STAND COURTNEY PLUS 1 Jul 24, 2015 106 [id number] [phone] PAYAM ZHENG PATIENT [place] PREFERRED PROVIDER ORGANIZAT ION (PPO) FEP STAND COURTNEY PLUS 1 Jul 24, 2015 106 [id number] [phone] PAYAM ZHENG PATIENT [employer]BS FEP RETIREE [id number] Jan 22, 2004 105 [id number] [phone] PAYAM ZHENG PATIENT [place] PREFERRED PROVIDER ORGANIZAT ION (PPO) FEP STAND COURTNEY PLUS 1 Jul 24, 2015 106 [id number] [phone] PAYAM ZHENG PATIENT [place] FEP PRESCRIPT ION [id number] Jan 22, 2004 [id number] PAYAM ZHENG PATIENT MEDICARE (WNR) MEDICARE (M) PART A Jan 22, 2004 PART A [id number] [phone] PAYAM ZHENG PATIENT MEDICARE (WNR) MEDICARE (M) PART B Jan 22, 2004 PART B [id number] PAYAM ZHENG PATIENT MEDICARE (WNR) MEDICARE (M) PART A Jan 22, 2004 PART A [id number] [phone] PAYAM ZHENG PATIENT MEDICARE (WNR) MEDICARE (M) PART B Jan 22, 2004 PART B [id number] [phone] PAYAM ZHENG PATIENT Selected Encounter This section includes the information on record at [place] for the Encounter. Date/Time Encounter Type Encounter Description Reason Provider Source Aug 03, 2023 02:00 PM AQUATIC THERAPY/EXERCISES RECREATION THERAPY SERVICE ICD-10-CM R54 Age-related physical debility VIDYA CHAVARRIA [facility] Encounter Template Text not used by [place] Assessments - Encounter Diagnoses This section includes the primary and secondary diagnoses documented for the Encounter. Date/Time Primary/Secondary Diagnosis Diagnosis Name Provider Source Aug 03, 2023 03:37 PM PRIMARY Age-related physical debility VIDYA CHAVARRIA [facility] Plan of Treatment: Future Appointments (+ 6 months) and Future Tests (+/- 45 days) The Plan of Treatment section includes future care activities for the patient from all [place] treatmentfacilities. This section includes future appointments and future orders which are active, pending or scheduled. Future Appointments This section includes appointments that were scheduled to occur 6 months from the date of the Encounter, up to a maximum of 20 appointments. The data comes from all [place] treatment facilities. Appointment Date/Time Appointment Type Appointme nt Facility Name Aug 16, 2023 08:30 AM AMBULATORY - REHAB MEDICIN E [facility] Aug 18, 2023 08:30 AM AMBULATORY - REHAB MEDICIN E [facility] Sep 26, 2023 10:00 AM AMBULATORY - MEDICINE [facility] Oct 09, 2023 11:00 AM AMBULATORY - NONE [facility] Active, Pending, and Scheduled Orders This section includes a listing of several types of active, pending, and scheduled orders, including clinic medications orders, diagnostic test orders, procedure orders and consult orders; where the start date of the order is 45 days before the date of the Encounter or 45 days after the date of theEncounter. The data comes from all [place] treatment facilities. Test Date/Time Test Type Test Details Facility Name Jul 11, 2023 12:00 AM Laboratory - Chemi stry Order MICRAL/CREAT PROFILE (STL) URINE SP [facility] Advance Directives: All historical and current Section Date Range: From patient's date of to the date document was created. This section includes ALL of a patient's completed or amended [place] Advance and Rescinded Directives. The entries below indicate that a directive exists for the patient, but an actual copy is not included with this document. The data comes from all [place] facilities. Date Advance Directives Provider Source Mar 26, 2021 ADVANCE DIRECTIVE DISCUSSION Jaqueline LEON [facility] Jun 12, 2014 ADVANCE DIRECTIVE DISCUSSION GÓMEZ ESPINAL [facility] Encounter Notes: All associated encounter notes This section contains the clinical notes associated to the Encounter. Date/Time Encounter Note(s) Provider Source Aug 03, 2023 03:33 PM RECREATIONAL THERA PY NOTE: LOCAL TITLE: RT OPT EXERCISE AQUATIC CLINIC PROGRESS STL STANDARD TITLE: RECREATIONAL THERAPY NOTE DATE OF NOTE: AUG 03, 2023@15:33 ENTRY DATE: AUG 03, 2023@15:33:44 AUTHOR: VIDYA CHAVARRIA EXP COSIGNER: URGENCY: STATUS: COMPLETED RECREATION THERAPY OUTPATIENT AQUATIC THERAPY CLINIC NOTE: Referring MD:Mina Panchal Referring DX:[id number]. participated in 60 MIN. session with Recreation Therapist, Vidya Chavarria. WARM UP STRETCHING EXERCISES CONSIST OF: Deep knee bends R/ L Gastronomies stretch Hip flexion/extension Toe; heel raises Hip adduction/abduction Open/close the gait(internal external rotation of the hip) WATER WALKING CONSIST OF: LAPS FORWARD 6 (6 min) LAPS SIDE STEP 6 (6 min) EQUIPMENT USED: FOAM ARM WEIGHTS DEEP WATER EXERCISES: Bicycle (UE/LE) Danna tilts Abdominal Crunches Scissor Kicks/Flutter Kicks Vertical stretch & traction EQUIPMENT USED: PFD Ring SHALLOW WATER EXERCISES: Squats Lunges Offset Squats Stepping drill Treatment Plan REHABILITATION GOALS: Short Term Goal: Patient will be able to tolerate prescribed exercise routine. Patient will be given 1-4 appointments for therapy Timeframe: First Visit - goal met 08/03/23 [facility] Goal: Patient will be able to self-direct [...] exercise and strength training (if appropriate). /yesenia/ Vidya Bey. MICHAEL Chavarria Recreation Therapist Signed: 08/03/2023 15:38 VIDYA CHAVARRIA [facility]
--- OUTSIDE RECORDS SUMMARY | 2024-07-23 06:09 | XMS_ITS | Encounter Summary ---
Author Name [facility] [place] Address [address] [place] [address] Care Team Providers Care Product Marketing Specialist Name Role Phone KRISTINA PANCHAL Primary Care Provider Unavailab JANKI Lara Unavailable [...] COURTNEY PLUS 1 Jul 24, 2015 106 [id number] [phone] PAYAM ZHENG PATIENT [place] F[place] PREFERRED PROVIDER ORGANIZAT ION (PPO) FEP STAND COURTNEY PLUS 1 Jul 24, 2015 106 [id number] [phone] PAYAM ZHENG PATIENT [place] PREFERRED PROVIDER ORGANIZAT ION (PPO) FEP STAND COURTNEY PLUS 1 Jul 24, 2015 106 [id number] [phone] PAYAM ZHENG PATIENT [employer] FEP RETIREE [id number] Jan 22, 2004 105 [id number] [phone] PAYAM ZHENG PATIENT [place] F[place] PREFERRED PROVIDER ORGANIZAT ION (PPO) FEP STAND COURTNEY PLUS 1 Jul 24, 2015 106 [id number] [phone] PAYAM ZHENG PATIENT [place] FEP PRESCRIPT ION [id number] Jan 22, 2004 [id number] PAYAM ZHENG PATIENT MEDICARE (WNR) MEDICARE (M) PART A Jan 22, 2004 PART A [id number] [phone] PAYAM ZHENG PATIENT MEDICARE (WNR) MEDICARE (M) PART B Jan 22, 2004 PART B [id number] PAYAM ZHENG PATIENT MEDICARE (WNR) MEDICARE (M) PART A Jan 22, 2004 PART A [id number] PAYAM ZHENG PATIENT MEDICARE (WNR) MEDICARE (M) PART B Jan 22, 2004 PART B [id number] [id number] PAYAM ZHENG PATIENT Selected Encounter This section includes the information on record at [place] for the Encounter. Date/Time Encounter Type Encounter Description Reason Pro vider Source Aug 08, 2023 02:52 PM Outpatient Encounter TELEPHONE PRIMARY CARE [facility] Encounter Template Text not used by [place] Plan of Treatment: Future Appointments (+ 6 months) and Future Tests (+/- 45 days) The Plan of Treatment section includes future care activities for the patient from all [place] treatmentfacilities. This section includes future appointments and future orders which are active, pending or scheduled. Future Appointments This section includes appointments that were scheduled to occur 6 months from the date of the Encounter, up to a maximum of 20 appointments. The data comes from all [place] treatment facilities. Appointment Date/Time Appointment Type Appointme nt Facility Name Aug 16, 2023 08:30 AM AMBULATORY - REHAB MEDICIN E [facility] Aug 18, 2023 08:30 AM AMBULATORY - REHAB MEDICIN E [facility] Sep 26, 2023 10:00 AM AMBULATORY - MEDICINE [facility] Oct 09, 2023 11:00 AM AMBULATORY - NONE [facility] Active, Pending, and Scheduled Orders This section includes a listing of several types of active, pending, and scheduled orders, including clinic medications orders, diagnostic test orders, procedure orders and consult orders; where the start date of the order is 45 days before the date of the Encounter or 45 days after the date of theEncounter. The data comes from all [place] treatment facilities. Test Date/Time Test Type Test Details Facility Name Jul 11, 2023 12:00 AM Laboratory - Chemi stry Order MICRAL/CREAT PROFILE (STL) URINE SP [facility] Social History: Smoking Status (Most current) and Tobacco Use (All prior to encounter date) This section includes the most current, and the historical, smoking and tobacco- related health factors from the [place] facility where the Encounter took place. Current Smoking Status This section includes the most current smoking, or tobacco-related health factor, from the [place] facility where the Encounter took place. Date/Time Current Smoking Status Comment Facil ity December 07, 2015 03:10 PM QUIT TOBACCO >7 YEARS AGO [facility] Tobacco Use History This section includes a history of the smoking, or tobacco-related health factors, that were collected on or before the date of the Encounter. The data comes from the [place] facility where the Encounter took place. Date/Time Smoking Status/Tobacco Use Comment F acility May 20, 2014 09:22 AM QUIT TOBACCO >7 YEARS AGO [facility] Feb 19, 2013 09:01 AM QUIT TOBACCO >7 YEARS AGO [facility] December 20, 2006 08:06 AM QUIT TOBACCO >7 YEARS AGO [facility] Jun 12, 2006 09:00 AM CURRENT NON-TOBACC O USER-HX OF USE [facility] Jun 12, 2006 09:00 AM TOBACCO TERMINATION STAGE [facility] December 07, 2005 11:12 AM CURRENT NON-TOBACC O USER-HX OF USE [facility] December 07, 2005 11:12 AM TOBACCO TERMINATION STAGE [facility] Mar 21, 2005 01:46 PM CURRENT NON-TOBACC O USER-HX OF USE [facility] Mar 21, 2005 01:46 PM TOBACCO TERMINATION STAGE [facility] Mar 03, 2004 09:58 AM CURRENT NON-TOBACC O USER-HX OF USE [facility] Mar 03, 2004 09:58 AM TOBACCO TERMINATION STAGE [facility] Apr 21, 2003 09:25 AM CURRENT NON-TOBACC O USER-HX OF USE QUIT 1971 [facility] Apr 21, 2003 09:25 AM CURRENT NON-TOBACC O USER-RECENTLY QUIT quit 1971 [facility] Apr 21, 2003 09:25 AM TOBACCO USE quit [address] [place] [address] Nov 07, 2002 09:14 AM CURRENT NON-TOBACC O USER-RECENTLY QUIT quit [address] [place] [address] Nov 07, 2002 09:14 AM TOBACCO USE quit [address] [place] [address] Nov 08, 2001 08:09 AM CURRENT NON-TOBACC O USER-HX OF USE quit 20 yrs. ago [facility] Advance Directives: All historical and current Section Date Range: From patient's date of to the date document was created. This section includes ALL of a patient's completed or amended [place] Advance and Rescinded Directives. The entries below indicate that a directive exists for the patient, but an actual copy is not included with this document. The data comes from all [place] facilities. Date Advance Directives Provider Source Mar 26, 2021 ADVANCE DIRECTIVE DISCUSSION Jaqueline LEON [facility] Jun 12, 2014 ADVANCE DIRECTIVE DISCUSSION GÓMEZ ESPINAL [facility] Encounter Notes: All associated encounter notes This section contains the clinical notes associated to the Encounter. Date/Time Encounter Note(s) Provider Source Aug 08, 2023 02:53 PM NURSING IMMUNIZATI ON NOTE: LOCAL TITLE: CLINIC ADMINISTERED IMMUNIZATION/MEDICATION( S) STANDARD TITLE: NURSING IMMUNIZATION NOTE DATE OF NOTE: AUG 08, 2023@14:53:37 ENTRY DATE: AUG 08, 2023@14:53:37 AUTHOR: LACIE TRACY EXP COSIGNER: URGENCY: STATUS: COMPLETED Documented: RESPIRATORY SYNCYTIAL VIRUS (RSV), UNSPECIFIED Historical Date Administered: Aug 03, 2023 Outside Location: [facility] Information Source: FROM PATIENT'S RECALL sent secure message with above information- /es/ LACIE TRACY MSN RN REGISTERED NURSE Signed: 08/08/2023 14:54 LACIE TRACY [facility]
--- OUTSIDE RECORDS SUMMARY | 2024-07-23 06:09 | XMS_ITS | Encounter Summary ---
Author Name [facility] [place] [facility] [place] [facility] [place] Address [address] [place] [address] Care Team Providers Care Gem Carver Name Role Phone PANCHAL, KRISTINA Primary Care [...] COURTNEY PLUS 1 Jul 24, 2015 106 [id number] [phone] PAYAM ZHENG PATIENT ANTHE[place] [employer] FEP PREFERRED PROVIDER ORGANIZAT ION (PPO) FEP STAND COURTNEY PLUS 1 Jul 24, 2015 106 [id number] [phone] PAYAM ZHENG PATIENT [place] F[place] PREFERRED PROVIDER ORGANIZAT ION (PPO) FEP STAND COURTNEY PLUS 1 Jul 24, 2015 106 [id number] [phone] PAYAM ZHENG PATIENT BC[employer] FEP RETIREE [id number] Jan 22, 2004 105 [id number] [phone] PAYAM ZHENG PATIENT [place] F[place] PREFERRED PROVIDER ORGANIZAT ION (PPO) FEP STAND COURTNEY PLUS 1 Jul 24, 2015 106 [id number] [phone] PAYAM ZHENG PATIENT [place] FEP PRESCRIPT ION [id number] Jan 22, 2004 [id number] [phone] PAYAM ZHENG PATIENT MEDICARE (WNR) MEDICARE (M) PART A Jan 22, 2004 PART A [id number] PAYAM ZHENG PATIENT MEDICARE (WNR) MEDICARE (M) PART B Jan 22, 2004 PART B [id number] PAYAM ZHENG PATIENT MEDICARE (WNR) MEDICARE (M) PART A Jan 22, 2004 PART A [id number] PAYAM ZHENG PATIENT MEDICARE (WNR) MEDICARE (M) PART B Jan 22, 2004 PART B [id number] 60A PAYAM ZHENG PATIENT Selected Encounter This section includes the information on record at [place] for the Encounter. Date/Time Encounter Type Encounter Description Reason Pro vider Source Aug 03, 2023 12:00 AM Outpatient Encounter EVENT (HISTORICAL) IHE Encounter Template Text not used by [place] Plan of Treatment: Future Appointments (+ 6 months) and Future Tests (+/- 45 days) The Plan of Treatment section includes future care activities for the patient from all [place] treatmentfacilities. This section includes future appointments and future orders which are active, pending or scheduled. Future Appointments This section includes appointments that were scheduled to occur 6 months from the date of the Encounter, up to a maximum of 20 appointments. The data comes from all [place] treatment facilities. Appointment Date/Time Appointment Type Appointme nt Facility Name Aug 16, 2023 08:30 AM AMBULATORY - REHAB MEDICIN E [facility] Aug 18, 2023 08:30 AM AMBULATORY - REHAB MEDICIN E [facility] Sep 26, 2023 10:00 AM AMBULATORY - MEDICINE [facility] Oct 09, 2023 11:00 AM AMBULATORY - [...] of theEncounter. The data comes from all [place] treatment facilities. Test Date/Time Test Type Test Details Facility Name Jul 11, 2023 12:00 AM Laboratory - Chemi stry Order MICRAL/CREAT PROFILE (STL) URINE SP [facility] Immunizations: All administered on the encounter date This section contains immunizations associated to the Encounter. Immunization Series Date Issued Reaction Comments RESPIRATORY SYNCYTIAL VIRUS (RSV), UNSPECIFIED Aug 03, 2023 Social History: Smoking Status (Most current) and Tobacco Use (All prior to encounter date) This section includes the most current, and the historical, smoking and tobacco- related health factors from the [place] facility where the Encounter took place. Current Smoking Status This section includes the most current smoking, or tobacco-related health factor, from the [place] facility where the Encounter took place. Date/Time Current Smoking Status Comment Leonela franco December 07, 2015 03:10 PM QUIT TOBACCO >7 YEARS AGO [facility] Tobacco Use History This section includes a history of the smoking, or tobacco-related health factors, that were collected on or before the date of the Encounter. The data comes from the [place] facility where the Encounter took place. Date/Time Smoking Status/Tobacco Use Comment Abisai garcía May 20, 2014 09:22 AM QUIT TOBACCO >7 YEARS AGO [facility] Feb 19, 2013 09:01 AM QUIT TOBACCO >7 YEARS AGO [facility] December 20, 2006 08:06 AM QUIT TOBACCO >7 YEARS AGO [facility] Jun 12, 2006 09:00 AM CURRENT NON-TOBACC O USER-HX OF USE [facility] Jun 12, 2006 09:00 AM TOBACCO TERMINATION STAGE [facility] December 07, 2005 11:12 AM CURRENT NON-TOBACC O USER-HX OF USE [facility] December 07, 2005 11:12 AM TOBACCO TERMINATION STAGE [facility] Mar 21, 2005 01:46 PM CURRENT NON-TOBACC O USER-HX OF USE [facility] Mar 21, 2005 01:46 PM TOBACCO TERMINATION STAGE [facility] Mar 03, 2004 09:58 AM CURRENT NON-TOBACC O USER-HX OF USE [facility] Mar 03, 2004 09:58 AM TOBACCO TERMINATION STAGE [facility] Apr 21, 2003 09:25 AM CURRENT NON-TOBACC O USER-HX OF USE QUIT [address] [place] [address] Apr 21, 2003 09:25 AM CURRENT NON-TOBACC O USER-RECENTLY QUIT quit [address] [place] [address] Apr 21, 2003 09:25 AM TOBACCO USE quit [address] [place] [address] Nov 07, 2002 09:14 AM CURRENT NON-TOBACC O USER-RECENTLY QUIT quit [address] [place] [address] Nov 07, 2002 09:14 AM TOBACCO USE quit [address] [place] [address] Nov 08, 2001 08:09 AM CURRENT NON-TOBACC O USER-HX OF USE quit 20 yrs. ago [facility] Advance Directives: All historical and current Section Date Range: From patient's date of to the date document was created. This section includes ALL of a patient's completed or amended [place] Advance and Rescinded Directives. The entries below indicate that a directive exists for the patient, but an actual copy is not included with this document. The data comes from all [place] facilities. Date Advance Directives Provider Source Mar 26, 2021 ADVANCE DIRECTIVE DISCUSSION Jaqueline LEON [facility] Jun 12, 2014 ADVANCE DIRECTIVE DISCUSSION GÓMEZ ESPINAL [facility]
--- OUTSIDE RECORDS SUMMARY | 2024-07-23 06:10 | XMS_ITS ---
Author Name [facility] [place] [facility] [place] Address [address] [place] [address] Care Team Providers Care Registered Massage Therapist Name Role Phone ABDULKADIR KRISTINA Primary Care [...] COURTNEY PLUS 1 Jul 24, 2015 106 [id number] [phone] PAYAM ZHENG PATIENT [place] F[place] PREFERRED PROVIDER ORGANIZAT ION (PPO) FEP STAND COURTNEY PLUS 1 Jul 24, 2015 106 [id number] [phone] PAYAM ZHENG PATIENT [place] PREFERRED PROVIDER ORGANIZAT ION (PPO) FEP STAND COURTNEY PLUS 1 Jul 24, 2015 106 [id number] [phone] PAYAM ZHENG PATIENT [employer] FEP RETIREE [id number] Jan 22, 2004 105 [id number] [phone] PAYAM ZHENG PAT[place] F[place] PREFERRED PROVIDER ORGANIZAT ION (PPO) FEP STAND COURTNEY PLUS 1 Jul 24, 2015 106 [id number] [phone] PAYAM ZHENG PATIENT [place] FEP PRESCRIPT ION [id number] Jan 22, 2004 [id number] PAYAM ZHENG PATIENT MEDICARE (WNR) MEDICARE (M) PART A Jan 22, 2004 PART A [id number] PAYAM ZHENG PATIENT MEDICARE (WNR) MEDICARE (M) PART B Jan 22, 2004 PART B [id number] PAYAM ZHENG PATIENT MEDICARE (WNR) MEDICARE (M) PART A Jan 22, 2004 PART A [id number] 60A PAYAM ZHENG PATIENT MEDICARE (WNR) MEDICARE (M) PART B Jan 22, 2004 PART B [id number] [id number] PAYAM ZHENG PATIENT Selected Encounter This section includes the information on record at [place] for the Encounter. Date/Time Encounter Type Encounter Description Reason Provider Source Sep 26, 2023 12:00 PM Outpatient Encounter PROSTHETICS/ORTHOTI KRISTINA PUCKETT Encounter Template Text not used by [place] [...] Date/Time Appointment Type Appointme nt Facility Name Oct 09, 2023 11:00 AM AMBULATORY - NONE [facility] Lab Results: +/- 30 days of the encounter This section includes the Chemistry and Hematology Lab Results on record with [place] for the patient. Radiology Reports and Pathology Reports are provided separately, in subsequent sections. Lab Results This section contains the Chemistry/Hematology Results that were resulted 30 days before or 30 daysafter the date of the Encounter. Date/Time Source Result Type Result - Unit Interpretation Reference Range Comment Sep 26, 2023 11:30 AM [facility] PROTEIN ELECTROPHORESIS BLOOD Specimen Type: SERUM Comment: No M Leandro detected. Reference Range: None Detected Normal Serum Protein Electrophoresis Pattern. No abnormal protein bands (M-protein) detected. Test Performed by [facility] [place], [employer] [facility], [address] [place] [address] Alfred Aly M.D., Ph.D., Director of Laboratories , [facility] [id number] Ordering Provider: KRISTINA PANCHAL Report Released Date/Time: Sep 26, 2023 10:20 AM Reporting Lab: [facility] [address] [place] [phone] Performing Lab: [facility] [id number] [facility] ALPHA-1 GLOBULIN(SO-PB-S TL) 0.3 g/dL 0.2-0.3 ALPHA-2 GLOBULIN(SO-PB-S TL) 0.8 g/dL 0.5-0.9 BETA 1 GLOBULIN(SO-PB-S TL) 0.5 g/dL 0.4-0.6 GAMMA GLOBULIN (SO-PB-STL) 0.9 g/dL 0.8-1.7 TOTAL PROTEIN (SO-PB-STL) 6.8 g/dL 6.1-8.1 ALBUMIN(ELECTROP HORESIS 3.8 g/dL 3.8-4.8 BETA 2 GLOBULIN (SO-PB) 0.4 g/dL 0.2-0.5 INTERPRETATION (STL-PB) SEE NOTE ABNORMAL PROTEIN BAND 1 (SO-PB-STL) SEE NOTE Sep 26, 2023 11:30 AM [facility] HGA1C Specimen Type: BLOOD No comment entered. Ordering Provider: KRISTINA PANCHAL Report Released Date/Time: Sep 26, 2023 10:20 AM Reporting Lab: [facility] [address] [facility] [address] Performing Lab: [facility] [address] [place] [phone] HGA1C 7.4 H 4.0-6.0 Sep 26, 2023 11:30 AM [facility] COMPREHENSIVE METABOLIC PANEL Specimen Type: PLASMA Comment: No hemolysis noted. Ordering Provider: KRISTINA PANCHAL Report Released Date/Time: Sep 26, 2023 10:20 AM Reporting Lab: [facility] [address] [facility] [address] Performing Lab: [facility] [address] [place] [phone] CREATININE 1.21 mg/dL 0.7-1.3 UREA NITROGEN 16.4 mg/dL 9.0-25.0 GLUCOSE 176 mg/dL H 72-99 SODIUM 138 meq/L 136-145 POTASSIUM 4.0 meq/L 3.5-5 CHLORIDE 103 meq/L 98-107 CARBON DIOXIDE 26 meq/L 22-31 CALCIUM 9.4 mg/dL 8.4-10.4 PROTEIN 7.2 g/dL 6-8.6 ALBUMIN 4.1 g/dL 3.4-5 TOTAL BILIRUBIN 1.0 mg/dL 0.2-1.2 ALKALINE PHOSPHATASE 84 U/L 40-150 AST/SGOT 21 U/L 5-34 ALT/SGPT 18 U/L 8-40 EGFR (CKD-EPI 2020) 59.0 >60 Sep 26, 2023 11:30 AM [facility] LIPID PANEL (STL) Specimen Type: PLASMA Comment: No hemolysis noted. Ordering Provider: KRISTINA PANCHAL Report Released Date/Time: Sep 26, 2023 10:20 AM Reporting Lab: [facility] [address] [facility] [phone] Performing Lab: [facility] [address] [facility] [phone] CHOLESTEROL 154 mg/dL 0-200 TRIGLYCERIDE 209 mg/dL H 0-150 CALCULATED LDL 69 mg/dL HDL(New) 43 mg/dL >40 Sep 26, 2023 11:30 AM [facility] B12 Specimen Type: SERUM No comment entered. Ordering Provider: KRISTINA PANCHAL Report Released Date/Time: Sep 26, 2023 10:20 AM Reporting Lab: [facility] [address] [facility] [address] Performing Lab: [facility] [place] [address] [phone] B12 724 pg/mL [phone] Sep 26, 2023 11:30 AM [facility] MICRAL/CREAT PROFILE (STL) Specimen Type: URINE No comment entered. Ordering Provider: KRISTINA PANCHAL Report Released Date/Time: Sep 26, 2023 10:20 AM Reporting Lab: [address] [phone] Performing Lab: [address] [phone] URINE ALBUMIN (PB-STL) 27.5 mg/L uACR (STL) 55 mg/g H 0-29 CREATININE URINE/OTHERS 50.4 mg/dL L 63-166 Sep 26, 2023 11:30 AM [facility] CBC Specimen Type: BLOOD No comment entered. Ordering Provider: KRISTINA PANCHAL Report Released Date/Time: Sep 26, 2023 10:20 AM Reporting Lab: [address] [phone] Performing Lab: [address] [phone] WBC 5.7 10*3/uL 3.6-11.2 RBC 3.68 10*6/uL L 4.10-5.70 HGB 11.1 g/dL L 13.1-16.8 HCT 32.8 L 38.2-48.4 MCV 89.1 fL 80.0-100.0 MCH 30.2 pg 27.0-34.0 MCHC 33.8 g/dL 33.0-36.0 PLT 299 10*3/uL 150-400 MPV 9.0 fL 7.5-11.2 RDW 13.0 11.8-15.1 LYMPHOCYTES, AUTO % 18 MONOCYTES, AUTO % 10 NEUTROPHILS, AUTO % 69 EOSINOPHILS, AUTO % 2 BASOPHILS, AUTO % 1 LYMPHOCYTES, ABSOLUTE 1.03 10*3/uL 0.77-4.50 MONOCYTES, ABSOLUTE 0.57 10*3/uL 0.19-0.80 NEUTROPHILS, ABSOLUTE 3.94 10*3/uL 2.10-8.00 EOSINOPHILS, ABSOLUTE 0.13 10*3/uL 0.00-0.60 BASOPHILS, ABSOLUTE 0.05 10*3/uL 0.00-0.20 Sep 26, 2023 09:55 AM [facility] GLUCOSE,BLOOD-poct (STL) Specimen Type: BLOOD Comment: Test Performed by: [id number] Meter #: [id number] Ordering Provider: KRISTINA PANCHAL Report Released Date/Time: Sep 26, 2023 03:59 PM Reporting Lab: [facility] [address] [facility] [phone] Performing Lab: [facility] [address] [facility] [phone] GLUCOSE,BLOOD-po ct (STL) 181 mg/dL H 72-99 Advance Directives: All historical and current Section [...] 26, 2021 ADVANCE DIRECTIVE DISCUSSION Jaqueline LEON [facility] Jun 12, 2014 ADVANCE DIRECTIVE DISCUSSION GÓMEZ ESPINAL [facility]
--- OUTSIDE RECORDS SUMMARY | 2024-07-23 06:10 | XMS_ITS | Encounter Summary ---
Author Name [facility] [place] [facility] [place] Address [address] [place] [address] Care Team Providers Care Nurse Advisor Name Role Phone KRISTINA PANCHAL Primary Care [...] COURTNEY PLUS 1 Jul 24, 2015 [id number] [phone] PAYAM ZHENG PATIENT ANTHE[place] [employer] FEP PREFERRED PROVIDER ORGANIZAT ION (PPO) FEP STAND COURTNEY PLUS 1 Jul 24, 2015 106 [id number] [phone] PAYAM ZHENG PATIENT AN[place] F[place] PREFERRED PROVIDER ORGANIZAT ION (PPO) FEP STAND COURTNEY PLUS 1 Jul 24, 2015 106 [id number] [phone] PAYAM ZHENG PATIENT [employer] FEP RETIREE [id number] Jan 22, 2004 [id number] PAYAM ZHENG PATIENT [place] F[place] PREFERRED PROVIDER ORGANIZAT ION (PPO) FEP STAND COURTNEY PLUS 1 Jul 24, 2015 106 [id number] [phone] PAYAM ZHENG PATIENT [place] F[place] PRESCRIPT ION [id number] Jan 22, 2004 [id number] [phone] PAYAM ZHENG PATIENT MEDICARE (WNR) MEDICARE (M) PART A Jan 22, 2004 PART A [id number] [phone] PAYAM ZHENG PATIENT MEDICARE (WNR) MEDICARE (M) PART B Jan 22, 2004 PART B [id number] PAYAM ZHENG PATIENT MEDICARE (WNR) MEDICARE (M) PART A Jan 22, 2004 PART A [id number] PAYAM ZHENG PATIENT MEDICARE (WNR) MEDICARE (M) PART B Jan 22, 2004 PART B [id number] PAYAM ZHENG PATIENT Selected Encounter This section includes the information on record at [place] for the Encounter. Date/Time Encounter Type Encounter Description Reason Provider Source Jun 04, 2024 10:31 AM CMPTR OPHTH IMG OPTIC NERVE OPHTHALMOLOGY ICD-10-CM H25.813 Combined forms of age-related cataract, bilateral YULISA NIEVES IHGerardo Encounter Template Text not used by [place] Assessments - Encounter Diagnoses This section includes the primary and secondary diagnoses documented for the Encounter. Date/Time Primary/Secondary Diagnosis Diagnosis Name Provider Source Jun 04, 2024 10:43 AM PRIMARY Combined forms of age-related cataract, bilateral CHRISTINE NIEVES [facility] Plan of Treatment: Future Appointments (+ 6 months) and Future Tests (+/- 45 days) The Plan of Treatment section includes future care activities for the patient from all [place] treatmentfacilities. This section includes future appointments and future orders which are active, pending or scheduled. Future Appointments This section includes appointments that were scheduled to occur 6 months from the date of the Encounter, up to a maximum of 20 appointments. The data comes from all [place] treatment facilities. Appointment Date/Time Appointment Type Appointme nt Facility Name Jun 19, 2024 09:00 AM AMBULATORY - SURGERY [facility] Jun 21, 2024 10:00 AM AMBULATORY - SURGERY . Porsha ERICK [facility] Jul 03, 2024 10:20 AM AMBULATORY - SURGERY [facility] Jul 15, 2024 10:00 AM AMBULATORY - SURGERY . Porsha [facility]ING [facility] Jul 30, 2024 01:00 PM AMBULATORY - NONE [facility] MARIZOL Hansen [facility] Jul 31, 2024 08:30 AM AMBULATORY - NONE [facility] MARIZOL Tyrone [facility] Oct 02, 2024 11:15 AM AMBULATORY - MEDICINE [facility] November 25, 2024 10:45 AM AMBULATORY - MEDICINE [facility] November 27, 2024 10:30 AM AMBULATORY - SURGERY [facility] Porsha ERICK [facility] Lab Results: +/- 30 days of the encounter This section includes the Chemistry and Hematology Lab Results on record with [facility] for the patient. Radiology Reports and Pathology Reports are provided separately, in subsequent sections. Lab Results This section contains the Chemistry/Hematology Results that were resulted 30 days before or 30 daysafter the date of the Encounter. Date/Time Source Result Type Result - Unit Interpretation Reference Range Comment Jul 03, 2024 11:25 AM [facility] BASIC METABOLIC PANEL Specimen Type: PLASMA Comment: No hemolysis noted. Ordering Provider: JYOTI SIMMONS Report Released Date/Time: Jun 24, 2024 11:11 AM Reporting Lab: [address] [address] Performing Lab: [address] [address] CREATININE 1.17 mg/dL 0.7-1.3 UREA NITROGEN 15.4 mg/dL 9.0-25.0 GLUCOSE 175 mg/dL H 72-99 SODIUM 140 meq/L 136-145 POTASSIUM 4.3 meq/L 3.5-5 CHLORIDE 106 meq/L 98-107 CARBON DIOXIDE 25 meq/L 22-31 CALCIUM 9.0 mg/dL 8.4-10.4 EGFR (CKD-EPI 2020) 61.1 >60 Jul 03, 2024 11:25 AM [facility] CBC Specimen Type: BLOOD No comment entered. Ordering Provider: JYOTI SIMMONS Report Released Date/Time: Jun 24, 2024 11:11 AM Reporting Lab: [facility] [address] [facility] [address] Performing Lab: [facility] [address] [facility] [address] WBC 8.1 10*3/uL 3.6-11.2 RBC 3.72 10*6/uL L 4.10-5.70 HGB 11.6 g/dL L 13.1-16.8 HCT 33.8 L 38.2-48.4 MCV 90.9 fL 80.0-100.0 MCH 31.2 pg 27.0-34.0 MCHC 34.3 g/dL 33.0-36.0 PLT 252 10*3/uL 150-400 MPV 8.4 fL 7.5-11.2 RDW 13.2 11.8-15.1 LYMPHOCYTES, AUTO % 14 MONOCYTES, AUTO % 9 NEUTROPHILS, AUTO % 75 EOSINOPHILS, AUTO % 1 BASOPHILS, AUTO % 1 LYMPHOCYTES, ABSOLUTE 1.17 10*3/uL 0.77-4.50 MONOCYTES, ABSOLUTE 0.70 10*3/uL 0.19-0.80 NEUTROPHILS, ABSOLUTE 6.11 10*3/uL 2.10-8.00 EOSINOPHILS, ABSOLUTE 0.09 10*3/uL 0.00-0.60 BASOPHILS, ABSOLUTE 0.04 10*3/uL 0.00-0.20 Social History: Smoking Status (Most current) and Tobacco Use (All prior to encounter date) This section includes the most current, and the historical, smoking and tobacco- related health factors from the [place] facility where the Encounter took place. Current Smoking Status This section includes the most current smoking, or tobacco-related health factor, from the [place] facility where the Encounter took place. Date/Time Current Smoking Status Comment Leonela ity December 07, 2015 03:10 PM QUIT TOBACCO >7 YEARS AGO [facility] Tobacco Use History This section includes a history of the smoking, or tobacco-related health factors, that were collected on or before the date of the Encounter. The data comes from the [place] facility where the Encounter took place. Date/Time Smoking Status/Tobacco Use Comment F acility May 20, 2014 09:22 AM QUIT TOBACCO >7 YEARS AGO [facility] Feb 19, 2013 09:01 AM QUIT TOBACCO >7 YEARS AGO [facility] December 20, 2006 08:06 AM QUIT TOBACCO >7 YEARS AGO [facility] Jun 12, 2006 09:00 AM CURRENT NON-TOBACC O USER-HX OF USE [facility] Jun 12, 2006 09:00 AM TOBACCO TERMINATION STAGE [facility] December 07, 2005 11:12 AM CURRENT NON-TOBACC O USER-HX OF USE [facility] December 07, 2005 11:12 AM TOBACCO TERMINATION STAGE [facility] Mar 21, 2005 01:46 PM CURRENT NON-TOBACC O USER-HX OF USE [facility] Mar 21, 2005 01:46 PM TOBACCO TERMINATION STAGE [facility] Mar 03, 2004 09:58 AM CURRENT NON-TOBACC O USER-HX OF USE [facility] Mar 03, 2004 09:58 AM TOBACCO TERMINATION STAGE [facility] Apr 21, 2003 09:25 AM CURRENT NON-TOBACC O USER-HX OF USE QUIT [address] [place] [address] Apr 21, 2003 09:25 AM CURRENT NON-TOBACC O USER-RECENTLY QUIT quit [address] [place] [address] Apr 21, 2003 09:25 AM TOBACCO USE quit [address] [place] [address] Nov 07, 2002 09:14 AM CURRENT NON-TOBACC O USER-RECENTLY QUIT quit [address] [place] [address] Nov 07, 2002 09:14 AM TOBACCO USE quit [address] [place] [address] Nov 08, 2001 08:09 AM CURRENT NON-TOBACC O USER-HX OF USE quit 20 yrs. ago [facility] Advance Directives: All historical and current Section Date Range: From patient's date of to the date document was created. This section includes ALL of a patient's completed or amended [facility] Advance and Rescinded Directives. The entries below indicate that a directive exists for the patient, but an actual copy is not included with this document. The data comes from all [place] facilities. Date Advance Directives Provider Source Mar 26, 2021 ADVANCE DIRECTIVE DISCUSSION Jaqueline LEON [facility] Jun 12, 2014 ADVANCE DIRECTIVE DISCUSSION GÓMEZ ESPINAL [facility] Radiology Reports: +/- 30 days of the encounter Radiology Reports For cases when an order for radiology services may have been completed prior to the date of the Encounter, the report list includes the Radiology Reports that were completed up to 30 days before dateof the Encounter. For cases when an order for radiology services may have been completed after the date of the Encounter, the report list also includes the Radiology Reports that were completed up to30 days after date of the Encounter. The data comes from all [place] treatment facilities. Date/Time Radiology Report Provider Source Jul 03, 2024 10:59 AM CHEST X-RAY, 2 VIE WS: VAUGHN ZHENG Virginie [id number] -[id number] M Exm Date: JUL 03, 2024@10:59 Req Phys: DIAMOND SCRUGGS Loc: -GEN SURG I CLINIC (Req'g Lo Img Loc: -MAIN RADIOLOGY SUITE Service: [facility] [place], operated by [facility], [facility] [address] [place] [address] (Case [id number] COMPLETE) CHEST X-RAY, 2 VIEWS (RAD Detailed) CPT:31677 Reason for Study: Pre Op Clinical History: Report Status: Verified Date Reported: JUL 04, 2024 Date Verified: JUL 04, 2024 Development Writer E-Sig:/ES/KATY MCNEIL MD Report: Case #[id number]. Chest examination. COMPARISON: 05/25/2023. Finding: PA and lateral views of the chest examination shows no evidence of cardiomegaly. Tortuous aorta is seen. No evidence of pulmonary vascular congestion, consolidation or mass. No evidence of pleural effusion or pneumothorax. Impression: No evidence of pulmonary consolidation, mass or lymphadenopathy. Primary Interpreting Staff: KATY MCNEIL MD, Staff Physician - Radiologist (Development Writer) /KATY GONZALEZ [facility] Pathology Reports: +/- 30 days of the encounter Pathology Reports For cases when an order for pathology services may have been completed prior to the date of the Encounter, the report list includes the Pathology Reports that were completed up to 30 days before dateof the Encounter. For cases when an order for pathology services may have been completed after the date of the Encounter, the report list also includes the Pathology Reports that were completed up to30 days after date of the Encounter. The data comes from all [place] treatment facilities. Date/Time Pathology Report Provider Source Jun 07, 2024 12:01 PM LR SURGICAL PATHOL OGY REPORT: LOCAL TITLE: LR SURGICAL PATHOLOGY REPORT STANDARD TITLE: PATHOLOGY PROCEDURE NOTE DATE OF NOTE: JUN 07, 2024@12:01:59 ENTRY DATE: JUN 07, 2024@12:01:59 AUTHOR: BERNIE HOUSTON COSIGNER: URGENCY: STATUS: COMPLETED $APHDR - - - - - - - - - - - - - - - - - - - - - - - - - - - - - - - - - - - - - - - - MEDICAL RECORD SURGICAL PATHOLOGY - - - - - - - - - - - - - - - - - - - - - - - - - - - - - - - - - - - - - - - - PATHOLOGY REPORT Accession No. SP [id number] - - - - - - - - - - - - - - - - - - - - - - - - - - - - - - - - - - - - - - - - $TEXT Submitted by: MEG SCRUGGS Date obtained: May 28, 2024 14:13 - - - - - - - - - - - - - - - - - - - - - - - - - - - - - - - - - - - - - - - - Specimen (Received May 28, 2024 14:14): A. LEFT FOREARM SHAVE BIOPSY - - - - - - - - - - - - - - - - - - - - - - - - - - - - - - - - - - - - - - - - BRIEF CLINICAL HISTORY: 9 months spot crusty spot with darker pigmented lesion colliding - - - - - - - - - - - - - - - - - - - - - - - - - - - - - - - - - - - - - - - - PREOPERATIVE DIAGNOSIS: R/o Melanoma vs Pigmented BCC vs AK + Tobar angioma - - - - - - - - - - - - - - - - - - - - - - - - - - - - - - - - - - - - - - - - OPERATIVE FINDINGS: Same - - - - - - - - - - - - - - - - - - - - - - - - - - - - - - - - - - - - - - - - POSTOPERATIVE DIAGNOSIS: Same Surgeon/physician: ALEX NELSON MD =-=-=-=-=-=-=-=-=-=-=-=-=-=-=- =-=-=-=-=-=-=-=-=-=-=-=-=-=-=- =-=-=-=-=-=-=-=-=-= - - - - - - - - - - - - - - - - - - - - - - - - - - - - - - - - - - - - - - - - PATHOLOGY REPORT Accession No. SP [id number] - - - - - - - - - - - - - - - - - - - - - - - - - - - - - - - - - - - - - - - - GROSS DESCRIPTION: Vidya Dowell, 05/28/24 Received in formalin in a container labeled with the patient's full name, SSN, and Left Forearm is an irregular, pigmented skin shave biopsy measuring 1.1 x 0.7 x 0.1cm. The resection margin is inked, and the tissue is bisected and submitted entirely in A1. MICROSCOPIC EXAM: Sections from the left forearm show a shave biopsy of skin with involvement by an irregular nodular pigmented spindle cell proliferation. Upward migration of the cells are seen centrally into the epidermis along with an area of serum crust scale. The cells stain positive for [place]-1/Melan-A and SOX10 while they are negative for p40, Desmin, and SMA. Variable positivity for CD10 is seen. The melanocytes demonstrate enlarged and pleomorphic nuclei extending to the base of the biopsy (provisional Breslow thickness 1.5 mm). The central area of serum crust scale with underlying severe epidermal atrophy is seen but definitive epidermal ulceration is not visualized. There is no evidence of lymphovascular space invasion or perineural invasion. 3 dermal melanoma mitoses are noted per square millimeter. This case was shared through intradepartmental consultation with Dr. Ernandez with concurrence of the diagnosis. Dr. Davis was notified of these findings on June 07, 2024. Melanoma Synoptic (AJCC 8th ed) Procedure: Shave biopsy Tumor site: Left forearm Histologic Type: Nodular with spindle cell features Breslow Thickness: Provisional Breslow thickness 1.5 mm Ulceration: Not definitively identified however serum crust scale present centrally Peripheral margin: Approximated by melanoma in situ Deep Margin: Positive for invasive melanoma Mitotic Rate: High (3 dermal melanoma mitoses per square millimeter) Microsatellitosis: Not observed Lymphovascular invasion: Not observed Neurotropism: Not observed Tumor regression:observed in less than 75% of the lesion Regional lymph nodes: n/a Pathologic Staging (pTNM): pTxNxMx DIAGNOSIS: SKIN, LEFT FOREARM, SHAVE BIOPSY - MALIGNANT MELANOMA, NODULAR TYPE WITH SPINDLE CELL FEATURES (SEE MICROSCOPIC DESCRIPTION/COMMENT) - PROVISIONAL BRESLOW THICKNESS 1.5 MM - DEFINITIVE EPIDERMAL ULCERATION NOT OBSERVED - HIGH DERMAL MELANOMA MITOTIC RATE /yesenia/ BERNIE HOUSTON MD DERMATOLOGY & DERMATOPATHOLOGY Signed Jun 07, 2024@12:01 Performing Laboratory: Surgical Pathology Report [facility] By: [facility] [address] [place] [address]# [id number] [address] [place] [phone] $FTR - - - - - - - - - - - - - - - - - - - - - - - - - - - - - - - - - - - - - - - - (End of report) BERNIE HOUSTON MD oj Date Jun 07, 2024 - - - - - - - - - - - - - - - - - - - - - - - - - - - - - - - - - - - - - - - - VAUGHN ZHENG STANDARD FORM 515 ID:[id number] SEX:M :1940 AGE: 84 LOC:DERMCON PCP: Kristina Panchal MD /joss HOUSTON MD DERMATOLOGY & DERMATOPATHOLOGY Signed: 06/07/2024 12:01 BERNIE HOUSTON [facility] Encounter Notes: All associated encounter notes This section contains the clinical notes associated to the Encounter. Date/Time Encounter Note(s) Provider Source Jun 07, 2024 12:30 PM PATHOLOGY REPORT: LOCAL TITLE: PATHOLOGY REPORT ST STANDARD TITLE: PATHOLOGY REPORT DATE OF NOTE: JUN 07, 2024@12:30 ENTRY DATE: JUN 07, 2024@12:30:41 AUTHOR: BERNIE HOUSTON EXP COSIGNER: URGENCY: STATUS: COMPLETED DIAGNOSIS: SKIN, LEFT FOREARM, SHAVE BIOPSY - MALIGNANT MELANOMA, NODULAR TYPE WITH SPINDLE CELL FEATURES (SEE MICROSCOPIC DESCRIPTION/COMMENT) - PROVISIONAL BRESLOW THICKNESS 1.5 MM - DEFINITIVE EPIDERMAL ULCERATION NOT OBSERVED - HIGH DERMAL MELANOMA MITOTIC RATE /es/ BERNIE HOUSTON MD DERMATOLOGY & DERMATOPATHOLOGY Signed: 06/07/2024 12:31 Receipt Acknowledged By: 06/10/2024 09:00 /es/ MEG SCRUGGS III DERMATOLOGY RESIDENT 06/10/2024 09:17 /es/ Fabiaon Dorantes M.D., Ph.D. Name Plate Stamping Machine Operator - Dermatology 06/11/2024 10:09 /es/ ALEX GARDNER MD Dermatology Attending Physician 06/07/2024 13:34 /es/ ANNA DAVIS Dermatology resident BERNIE HOUSTON [facility] Jun 04, 2024 10:31 AM OPHTHALMOLOGY NOTE : LOCAL TITLE: OPHTHALMOLOGY NOTE STL STANDARD TITLE: OPHTHALMOLOGY NOTE DATE OF NOTE: JUN 04, 2024@10:31 ENTRY DATE: JUN 04, 2024@10:31:55 AUTHOR: CHRISTINE NIEVES EXP COSIGNER: URGENCY: STATUS: COMPLETED TESTING OBTAINED:OCT Macula/RNFL/GCA OU Complete INITIAL EYE SCREEN LAST VISIT: 06/13/2023 CHIEF COMPLAINT: States that he has gotten a new pair of glasses and they are not as good as the last pair, states his OD is getting more cloudy OCULAR REVIEW OF SYSTEMS: VISUAL ACUITY With Correction, Glasses OD: 20/25-2 OS: 20/25-2 AUTO REFRACTION SUBJ: OD: -3.25 +4.25 9 OS: -2.50 +1.25 149 VISUAL ACUITY WITH AUTO REFRACTION: OD: 20/30-1 OS: 20/20-2 LENSOMETER: OD: -2.50 +2.75 13 OS: -2.25 +1.00 154 OPTHALMIC MEDICATIONS ADMINISTERED @1040 TONOPEN: OD: 16 OS: 14 DILATION Ophthetic 0.5% One drop Both eyes Tropicamide 1% One drop Both eyes Phenylephrine 2.5% One drop Both eyes /es/ CHRISTINE NIEVES WELDING MACHINE OPERATOR GAS Signed: 06/04/2024 10:54 CHRISTINE NIEVES [facility]
--- OUTSIDE RECORDS SUMMARY | 2024-07-23 06:10 | XMS_ITS | Encounter Summary ---
Author Name [facility] Address [address] [place] [address] Care Team Providers Care Dietician Name Role Phone PANCHAL, KRISTINA Primary Care [...] COURTNEY PLUS 1 Jul 24, 2015 106 [id number] [phone] PAYAM GONZALEZ PATIENT ANTHEM [place] FEP PREFERRED PROVIDER ORGANIZAT ION (PPO) FEP STAND COURTNEY PLUS 1 Jul 24, 2015 106 [id number] [phone] PAYAM GONZALEZ PATIENT [place] F[place] PREFERRED PROVIDER ORGANIZAT ION (PPO) FEP STAND COURTNEY PLUS 1 Jul 24, 2015 106 [id number] [phone] PAYAM GONZALEZ PATIENT [employer] FEP RETIREE [id number] Jan 22, 2004 105 [id number] PAYAM GONZALEZ PATIENT [place] F[place] PREFERRED PROVIDER ORGANIZAT ION (PPO) FEP STAND COURTNEY PLUS 1 Jul 24, 2015 106 [id number] [phone] PAYAM GONZALEZ PATIENT [place] FEP PRESCRIPT ION [id number] Jan 22, 2004 [id number] [phone] PAYAM GONZALEZ PATIENT MEDICARE (WNR) MEDICARE (M) PART A Jan 22, 2004 PART A [id number] PAYAM GONZALEZ PATIENT MEDICARE (WNR) MEDICARE (M) PART B Jan 22, 2004 PART B [id number] PAYAM GONZALEZ PATIENT MEDICARE (WNR) MEDICARE (M) PART A Jan 22, 2004 PART A [id number] PAYAM GONZALEZ PATIENT MEDICARE (WNR) MEDICARE (M) PART B Jan 22, 2004 PART B [id number] [phone] PAYAM GONZALEZ PATIENT Selected Encounter This section includes the information on record at [place] for the Encounter. Date/Time Encounter Type Encounter Description Reason Provider Source Sep 26, 2023 10:00 AM OFFICE O/P EST MOD 30 MIN PRIMARY CARE/MEDICINE ICD-10-CM E11.65 Type 2 diabetes mellitus with hyperglycemia RUDOLPH PANCHAL SE [facility] Encounter Template Text not used by [place] Assessments - Encounter Diagnoses This section includes the primary and secondary diagnoses documented for the Encounter. 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 This section includes future appointments and future orders which are active, pending or scheduled. Future Appointments This section includes appointments that were scheduled to occur 6 months from the date of the Encounter, up to a maximum of 20 appointments. The data comes from all [facility] facilities. Appointment Date/Time Appointment Type Appointme nt Facility Name Oct 09, 2023 11:00 AM AMBULATORY - NONE [facility] Lab Results: +/- 30 days of the encounter This section includes the Chemistry and Hematology Lab Results on record with [place] for the patient. Radiology Reports and Pathology [...] protein bands (M-protein) detected. Test Performed by [employer] [facility], [address] [place] [address] Alfred Aly M.D., Ph.D., Director of Laboratories , [facility] [id number] Ordering Provider: KRISTINA PANCHAL Report Released Date/Time: Sep 26, 2023 10:20 AM Reporting Lab: [facility] [address] [place] [phone] Performing Lab: [facility] [address] [place] [address] ALPHA-1 GLOBULIN(SO-PB-S TL) 0.3 g/dL 0.2-0.3 ALPHA-2 [...] Sep 26, 2023 10:20 AM Reporting Lab: [facility] [address] [facility] [address] Performing Lab: [facility] [address] [facility] [address] HGA1C 7.4 H 4.0-6.0 Sep 26, 2023 11:30 AM [facility] B12 Specimen Type: SERUM No comment entered. Ordering Provider: KRISTINA PANCHAL Report Released Date/Time: Sep 26, 2023 10:20 AM Reporting Lab: [facility] [phone] Performing Lab: [facility] [address] [facility] [address] B12 724 pg/mL [phone] Sep 26, 2023 11:30 AM [facility] MICRAL/CREAT PROFILE (STL) Specimen Type: URINE No comment entered. Ordering Provider: KRISTINA PANCHAL Report Released Date/Time: Sep 26, 2023 10:20 AM Reporting Lab: [facility] [phone] Performing Lab: [facility] [address] [facility] [phone] URINE ALBUMIN (PB-STL) 27.5 mg/L uACR (STL) 55 mg/g H 0-29 CREATININE URINE/OTHERS 50.4 mg/dL L 63-166 Sep 26, 2023 11:30 AM [facility] COMPREHENSIVE METABOLIC PANEL Specimen Type: PLASMA Comment: No hemolysis noted. Ordering Provider: KRISTINA PANCHAL Report Released Date/Time: Sep 26, 2023 10:20 AM Reporting Lab: [facility] [address] [facility] [address] Performing Lab: [facility] [address] [facility] [address] CREATININE 1.21 mg/dL 0.7-1.3 UREA NITROGEN 16.4 [...] Sep 26, 2023 10:20 AM Reporting Lab: [facility] [address] [place] [phone] Performing Lab: [facility] [address] [place] [phone] CHOLESTEROL 154 mg/dL 0-200 TRIGLYCERIDE 209 mg/dL H 0-150 CALCULATED LDL 69 mg/dL HDL(New) 43 mg/dL >40 Sep 26, 2023 11:30 AM [facility] CBC Specimen Type: BLOOD No comment entered. Ordering Provider: KRISTINA PANCHAL Report Released Date/Time: Sep 26, 2023 10:20 AM Reporting Lab: [facility] [address] [place] [phone] Performing Lab: [facility] [address] [place] [phone] WBC 5.7 10*3/uL 3.6-11.2 RBC 3.68 10*6/uL [...] Specimen Type: BLOOD Comment: Test Performed by: [id number] Meter #: [id number] Ordering Provider: KRISTINA PANCHAL Report Released Date/Time: Sep 26, 2023 03:59 PM Reporting Lab: [address] [address] Performing Lab: [address] [address] GLUCOSE,BLOOD-po ct (STL) 181 mg/dL H 72-99 Vital Signs: All taken on the encounter date This section contains inpatient and outpatient Vital Signs collected on the date of the Encounter. Date/Time Temperature Pulse Blood Pressure Respiratory Rate SP02 Pain Height Weight Body Mass Index Source Sep 26, 2023 10:01 AM 138/70 [facility] Sep 26, 2023 09:50 AM 97.7 60 165/77 16 97 0 174.2 30 [facility] Social History: Smoking Status (Most current) and Tobacco Use (All prior to encounter date) This section includes the most current, and the historical, smoking and tobacco- related health factors from the [facility] where the Encounter took place. Current Smoking Status This section includes the most current smoking, or tobacco-related health factor, from the [place] facility where the Encounter took place. Date/Time Current Smoking Status Comment Facil ity Apr 27, 2023 03:00 PM VA-TOBACCO NEVER USED [facility] Tobacco Use History This section includes a history of the smoking, or tobacco-related health factors, that were collected on or before the date of the Encounter. The data comes from the [place] facility where the Encounter took place. Date/Time Smoking Status/Tobacco Use Comment F acmaggie Mar 11, 2022 10:30 AM VA-TOBACCO NEVER USED [facility] Mar 26, 2021 03:00 PM VA-TOBACCO FORMER USER [facility] Mar 26, 2021 03:00 PM VA-TOBACCO QUIT 15 YRS OR MORE [facility] Oct 16, 2019 10:22 AM VA-TOBACCO NEVER USED [facility] Nov 13, 2017 02:35 PM VA-TOBACCO FORMER USER [facility] Nov 13, 2017 02:35 PM VA-TOBACCO QUIT 15 YRS OR MORE [facility] Oct 24, 2017 01:47 PM QUIT TOBACCO >7 YEARS AGO [facility] Advance Directives: All historical and current Section Date Range: From patient's date of to the date document was created. This section includes ALL of a patient's completed or amended [place] Advance and Rescinded Directives. The entries below indicate that a directive exists for the patient, but an actual copy is not included with this document. The data comes from all [place] facilities. Date Advance Directives Provider Source Mar 26, 2021 ADVANCE DIRECTIVE DISCUSSION Jaqueline LEON [facility] Jun 12, 2014 ADVANCE DIRECTIVE DISCUSSION GÓMEZ ESPINAL [facility] Encounter Notes: All associated encounter notes This section contains the clinical notes associated to the Encounter. Date/Time Encounter Note(s) Provider Source Oct 02, 2023 02:01 PM PHYSICIAN LETTERS: LOCAL TITLE: TEST RESULT GENERAL LETTER STL STANDARD TITLE: PHYSICIAN LETTERS DATE OF NOTE: OCT 02, 2023@14:01 ENTRY DATE: OCT 02, 2023@14:01:56 AUTHOR: KRISTINA PANCHAL EXP COSIGNER: URGENCY: STATUS: COMPLETED [facility] [address] [place] [address] OCT 02, 2023 VAUGHN GONZALEZ [address] [place], [place] [address] Dear Vaughn Gonzalez, I would like to update you on your recent test results. LIPID PROFILE - High cholesterol and triglycerides (lipids) are risk factors for heart disease. TRIGLYCERIDE 209 H mg/dL 09/26/2023 11:30 CHOLESTEROL 154 mg/dL 09/26/2023 11:30 HDL(New) 43 mg/dL 09/26/2023 11:30 DIRECT LDL 75 L mg/dL 03/11/2022 11:35 The results are similar to previous values. HEMOGLOBIN A1C - Gives us information about your diabetes (sugar or glucose) control over the past 3 months. Your target is to keep your A1C below 7 %. HGA1C 7.4 H % 09/26/2023 11:30 The results are similar to previous values. CBC - A complete blood count (CBC) gives important information about the kinds and numbers of cells in the blood, especially red blood cells, white blood cells, and platelets. HGB 11.1 L g/dL 09/26/2023 11:30 HEMATOCRIT 32.8 % L (09/26/23 11:30) PLT 299 10*3/uL 09/26/2023 11:30 WHITE BLOOD COUNT 5.7 10*3/uL (09/26/23 11:30) The results are similar to previous values. B12 - Helps maintain healthy nerve cells, red blood cells, and is also needed to make DNA. B12 724 pg/mL 09/26/2023 11:30 These readings are within normal limits. CHEM 7 - This is important information about the current status of your kidneys, liver, and electrolyte and acid/base balance as well as of your blood sugar and blood proteins. SODIUM 138 mEq/L 09/26/2023 11:30 POTASSIUM 4.0 mEq/L 09/26/2023 11:30 CHLORIDE 103 mEq/L 09/26/2023 11:30 UREA NITROGEN 16.4 mg/dL 09/26/2023 11:30 CREATININE 1.21 mg/dL 09/26/2023 11:30 CALCIUM 9.4 mg/dL 09/26/2023 11:30 CARBON DIOXIDE 26 mEq/L 09/26/2023 11:30 GLUCOSE 176 H mg/dL 09/26/2023 11:30 EGFR (CKD-EPI 2020) 59.0 09/26/2023 11:30 The results are similar to previous values and not a clinical concern. LIVER FUNCTION PANEL - These are tests for liver function: PROTEIN 7.2 g/dL 09/26/2023 11:30 ALBUMIN 4.1 g/dL 09/26/2023 11:30 TOTAL BILIRUBIN 1.0 mg/dL 09/26/2023 11:30 ALKALINE PHOSPHATASE 84 U/L 09/26/2023 11:30 AST/SGOT 21 U/L 09/26/2023 11:30 ALT/SGPT 18 U/L 09/26/2023 11:30 These readings are within normal limits. FUTURE APPOINTMENTS: 03/26/2024 10:30 [facility] PACT A7 PCP 06/04/2024 10:30 [facility] Sincerely, KRISTINA PANCHAL MD STAFF PHYSICIAN INTERNAL MEDICINE [place] KRISTINA GARNETT [facility] Sep 26, 2023 11:22 AM PRIMARY CARE NOTE: LOCAL TITLE: PRIMARY CARE PROVIDER ESTABLISHED VISIT STL STANDARD TITLE: PRIMARY CARE NOTE DATE OF NOTE: SEP 26, 2023@11:22 ENTRY DATE: SEP 26, 2023@11:22:46 AUTHOR: KRISTINA PANCHAL EXP COSIGNER: URGENCY: STATUS: COMPLETED Primary care established patient office note Chief complaint: request for new shoes, compression stockings and abd binder; Follow-up diabetes complicated by peripheral neuropathy, follow-up left knee OA, follow-up B12 deficiency HPI: Mr. Gonzalez is a 83 yo M w/ PMH of HTN, BPH, HLD, hypothyroid, diverticulitis s/p colectomy (1982) c/b multiple hernias, B12 def, OA b/l knees, and DM who presents for interval f/u of these issues. Of note, the patient follows with Dr. Tsang as local PCP and sees that MD q 3 months. The patient is requesting labs today as he does not want to pay for these out- of-pocket. He has a list that his outside PCP wanted him to get here. He made this appointment today for interval reevaluation of his neuropathy. Since a little worse overall. He is hoping that there is something that can be done to improve his neuropathy. We do not prescribe his medications. He sees Dr. Tsang locally with the prescribing provider. We discussed sending off his serologic work-up again which was reviewed with him today. He states that he started vitamin B12 supplement at night which is helped a little bit. He has neuropathy in a stocking distribution bilaterally which is thought to be from his diabetes. Regarding his diabetes, he brings a blood sugar log today with blood sugar on average in the 150s or 160s. He stated that his A1c at Dr. Tsang's office was 7.2. He states he is hopeful that he will get better glycemic control with blood sugars in the 120s to 140s. I told him overall blood sugars look quite good on this log. His outside doctor discontinued metformin and started a combination metformin/empagliflozin tablet which she has been taking for about 3 months now and tolerating well. He has had no urinary side effects or fungal infection. Patient is requesting new compression stockings, new diabetic shoes given the sole is torn more on his current shoes from the [place]. He needs inserts to go on the shoes as well. He also is asking for a ventral wall hernia abdominal binder which she received previously at the [place]. Has a stretched out and he would like the same 1 mailed to him. His is scheduled to undergo endoscopic sinus surgery on Monday. He talked about that and associated stress level. ROS: Negative 10 point ROS except as described above in HPI. Past History: 1) Benign essential hypertension (SNOMED CT 6255507) 2) Dyspepsia 3) Diverticulosis Colon 4) Hemorrhoids 5) Allergic Rhinitis 6) Skin Cancer 7) Benign prostatic hyperplasia 8) B12 deficiency monitoring status (SNOMED CT 843614606) 9) Incisional hernia without mention of obstruction or gangrene (ICD-9-CM 553.21) 10) Hypothyroidism 11) Impaired glucose tolerance 12) Diabetes mellitus Meds: MEDICATIONS: Active Outpatient Medications (including Supplies): ALCOHOL PREP PAD USE/APPLY PAD TO AFFECTED AREA(S) ONCE A ACTIVE DAY NEEDED Non-VA AMLODIPINE BESYLATE 5MG TAB 5MG BY MOUTH ONCE A DAY ACTIVE Non-VA CHOLECALCIF 50MCG (D3-2,000UNIT) TAB 2000UNIT BY ACTIVE MOUTH ONCE A DAY Non-VA CYANOCOBALAMIN 1000MCG TAB 1000MCG BY MOUTH ONCE A ACTIVE DAY Non-VA EMPAGLIFLOZIN 5MG/METFORMIN 1000MG TAB 1 TABLET BY ACTIVE MOUTH TWICE A DAY Non-VA LEVOTHYROXINE NA (SYNTHROID) 75MCG TAB 75MCG BY ACTIVE MOUTH EVERY MORNING BEFORE A MEAL Non-VA LISINOPRIL 40MG TAB 40MG BY MOUTH ONCE A DAY ACTIVE Non-VA LORATADINE 10MG TAB 10MG BY MOUTH ONCE A DAY ACTIVE Non-VA METRONIDAZOLE 0.75% TOP GEL SPARINGLY TO AFFECTED ACTIVE AREA(S) TWICE A DAY Non-VA MULTIVITAMIN CAP/TAB 1 TABLET BY MOUTH ONCE A DAY ACTIVE Non-VA OMEPRAZOLE 20MG EC CAP 40MG BY MOUTH EVERY MORNING ACTIVE Non-VA PHENYLEPHRINE HCL 0.25% RTL SUPP 1 SUPPOSITORY ACTIVE RECTALLY TWICE DAILY NEEDED Non-VA PSYLLIUM POWDER,ORAL BY MOUTH ACTIVE ALLERGIES: Patient has answered NKA FH - reviewed, no changes SH - reviewed, no changes Physical examination Vital signs reviewed and CPRS General: Alert and oriented no acute distress Skin: Areas on the scalp where skin lesions were treated with liquid nitrogen no evidence of superinfection Cardiovascular: Regular rate and rhythm normal S1-S2 no murmur gallop Pulmonary: Clear to auscultation bilaterally no wheezes rhonchi Abdomen: Soft nontender nondistended bowel sounds present Extremities: No lower extremity edema Foot: + neuropathy, no ulcers Labs pending A/P: Mr. Gonzalez is a 83-year-old man with # DM2 complicated by neuropathy a1c ~7 on outside labs. - continue metformin 1000 SA/empagliflozin 5 mg BID - DM shoes with inserts # b12 deficiency - continue B12 supplementation - level today # Hypothyroidism - continue levothyroxine 75 mcg daily - tsh today # L knee OA - f/u Dr. 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 He will contact us if he needs to schedule an appointment with [place] dermatology (declines f/u now). he is still seeing the outsider derm. He can call anytime to switch. # hemorrhoids - prn phenylephrine supp - psyllium # ventral wall hernia longstanding and reducible - Rx for another binder (same one) as his is years old and strectched out # GERD no sx on PPI. - continue omeprazole # HME - declines covid booster, s/p flu and rsv vaccines RTC 6 months per pt request. Labs per Dr. Tsang. [employer] voice dictation software was used for this clinical note. Please excuse any errors in financial advisor trainee. Medication Reconciliation Opt STL: I have reviewed the patient's medication list (including active outpatient prescriptions dispensed from this [place] (local) and dispensed from another [place] or [facility]D facility (remote) as well as inpatient orders (local pending and active), local clinic medications, locally documented non-VA medications, and local prescriptions that have or been discontinued in the past 90 days.) with the patient and/or his/her care-boat ride operator. Handwritten corrections, additions and/or deletions were made to the list, as appropriate. Corrected Outpatient Medication List was provided to the patient/caregiver. PAVE Foot Check: A complete foot check was completed at this encounter. VISUAL INSPECTION: Includes inspection for skin breaks, deformity, erythema, trauma, pallor on elevation, dependent rubor, nail deformities, extensive callus and pitting edema. Visual exam results: Normal PEDAL PULSES: Includes palpation of dorsalis and posterior tibial pulses and signs/symptoms of vascular compromise like pain, pallor, parasthesia or paralysis. Present (even if diminished) SENSORY CHECK: Includes 10 gram Monofilament ([place]) test of sensation. Intact (Greater than or equal to 80% of sites checked) Abnormal (Less than 80% of sites checked): Abnormal (decreased or absent sensation to monofilament): HIGH-RISK HIGH RISK FOOT EDUCATION: 1. Advised patient that extra depth footwear with soft molded inserts and braces may be required. 2. Advised patient not to walk barefoot. Instructed the patient to pay close attention to the style and fit of shoes. 3. Explained the importance of daily foot checks. Explained that loss of sensation leads to callouses. Callouses break down, which result in ulcers that may lead to gangrene and amputation. 4. Stressed the importance of daily foot hygiene. Warm (not hot) bathing of the feet, complete drying and thorough inspection for changes in the condition of the skin constitute daily foot care. Demonstrated how to do a thorough foot check. 5. Emphasized the use of clean, non-restrictive socks/stockings and well fitting shoes. 6. Stressed the importance of immediate follow-up of any foot injuries or ulcers. Explained that he/she should be non-weight bearing whenever there are lesions on the foot, to prevent cellular damage. Level of Understanding: Good Patient refused referral to Podiatry /yesenia/ KRISTINA PANCHAL MD STAFF PHYSICIAN INTERNAL MEDICINE Signed: 09/26/2023 11:32 KRISTINA PANCHAL [facility] Sep 26, 2023 09:57 AM NURSING NOTE: LOCAL TITLE: V15 PACT FACE TO FACE NOTE ST STANDARD TITLE: NURSING NOTE DATE OF NOTE: SEP 26, 2023@09:57 ENTRY DATE: SEP 26, 2023@09:57:29 AUTHOR: KATTY JANE COSIGNER: URGENCY: STATUS: COMPLETED Provider Visit: Patient Identifiers : Full Name Date of Reason for visit: Established Follow-Up Mode of Arrival: Ambulatory Allergy Review: Patient has answered NKA Allergy list reviewed and remains current. Recent Vital Signs: Temperature: 97.7 F [36.5 C] (09/26/2023 09:50) Pulse: 60 (09/26/2023 09:50) Respiration: 16 (09/26/2023 09:50) B/P: 165/77 (09/26/2023 09:50) Pain: 0 (09/26/2023 09:50) Wt: 174.2 lb [79.02 kg] (09/26/2023 09:50) Ht: 64 in [162.6 cm] (03/19/2019 14:34) BMI: 30.0 POX: 97% (09/26/2023 09:50) Blood sugar glucometer readin secondary b/p: 138/70 Would you like to discuss any personal problem, family problem, alcohol use, drug use, or a mental or emotional illness? No [facility] please select appointment type: Face to face: Yes- Done Contact provided Primary Care phone number and encouraged to call if any questions or concerns. Review that after hours nurse line [phone] and emergency room are available 13/02 for patient use. Contact verbalized good understanding. No notification required for this note. [facility] DIGITAL DIVIDE CAPABILITY REMINDER: Patient is not interested in [facility] at this time. 'S RIGHT TO DECLINE STATEMENT [place] understands they have the right to decline the use of [employer] at any time without adverse affects on their continued access to healthcare. COVID-19 Immunization: Refused Pfizer Monovalent COVID-19 vaccine Immunization: COVID-19 (PFIZER), MRNA, LNP-S, PF, KAYCE-SUCROSE, 30 MCG/0.3 ML (AGES 12+ YEARS) Refusal Reason: PATIENT DECISION Patient refuses all immunization(s) in the COVID-19 group Date Documented: 09/26/23 09:58 /yesenia/ KATTY JANE LICENSED PRACTICAL NURSE Signed: 09/26/2023 10:00 KATTY JANE [facility]
--- OUTSIDE RECORDS SUMMARY | 2024-07-23 06:10 | XMS_ITS ---
Author Name [facility] Address [address] [place] [address] Care Team Providers Care Revolving Field Assembler Name Role Phone ABDULKADIR KRISTINA Primary Care [...] COURTNEY PLUS 1 Jul 24, 2015 106 [id number] [phone] PAYAM ZHENG PATIENT ANTHE[place] [employer] [place] FEP PREFERRED PROVIDER ORGANIZAT ION (PPO) FEP STAND COURTNEY PLUS 1 Jul 24, 2015 106 [id number] [phone] APYAM ZHENG PATIENT [place] F[place] PREFERRED PROVIDER ORGANIZAT ION (PPO) FEP STAND COURTNEY PLUS 1 Jul 24, 2015 106 [id number] [phone] PAYAM ZHENG PATIENT [employer] FEP RETIREE [id number] Jan 22, 2004 105 [id number] PAYAM ZHENG PATIENT [place] F[place] PREFERRED PROVIDER ORGANIZAT ION (PPO) FEP STAND COURTNEY PLUS 1 Jul 24, 2015 106 [id number] [phone] PAYAM ZHENG PATIENT [place] F[place] PRESCRIPT [place] [id number] Jan 22, 2004 [id number] [phone] PAYAM ZHENG PATIENT MEDICARE (WNR) MEDICARE (M) PART A Jan 22, 2004 PART A [id number] PAYAM ZHENG PATIENT MEDICARE (WNR) MEDICARE (M) PART B Jan 22, 2004 PART B [id number] [phone] PAYAM ZHENG PATIENT MEDICARE (WNR) MEDICARE (M) PART A Jan 22, 2004 PART A [id number] [phone] PAYAM ZHENG PATIENT MEDICARE (WNR) MEDICARE (M) PART B Jan 22, 2004 PART B [id number] PAYAM ZHENG PATIENT Selected Encounter This section includes the information on record at [place] for the Encounter. Date/Time Encounter Type Encounter Description Reason Provider Source Sep 25, 2023 09:49 AM Outpatient Encounter PRIMARY CARE/MEDICINE KATTY JANE Encounter Template Text not used by [facility] Plan of Treatment: Future Appointments (+ 6 months) and Future Tests (+/- 45 days) The Plan of Treatment section includes future care activities for the patient from all [place] treatmentfacilities. This section includes future appointments and future orders which are active, pending or scheduled. Future Appointments This section includes appointments that were scheduled to occur 6 months from the date of the Encounter, up to a maximum of 20 appointments. The data comes from all [place] treatment facilities. Appointment Date/Time Appointment Type Appointme nt Facility Name Sep 26, 2023 10:00 AM AMBULATORY - MEDICINE ED [facility] Oct 09, 2023 11:00 AM AMBULATORY - NONE . [facility] Lab Results: +/- 30 days of the encounter This section includes the Chemistry and Hematology Lab Results on record with [place] for the patient. Radiology Reports and Pathology Reports are provided separately, in subsequent sections. Lab Results This section contains the Chemistry/Hematology Results that were resulted 30 days before or 30 daysafter the date of the Encounter. Date/Time Source Result Type Result - Unit Interpretation Reference Range Comment Sep 26, 2023 11:[address] [facility] PROTEIN ELECTROPHORESIS BLOOD Specimen Type: SERUM Comment: No M Leandro detected. Reference Range: None Detected Normal Serum Protein Electrophoresis Pattern. No abnormal protein bands (M-protein) detected. Test Performed by [facility], [facility], [address] [place] [address] Alfred Aly M.D., Ph.D., Director of Laboratories , [facility] [id number] Ordering Provider: KRISTINA PANCHAL Report Released Date/Time: Sep 26, 2023 10:20 AM Reporting Lab: [facility] [address] [place] [phone] Performing Lab: [facility] [address] [facility] ALPHA-1 GLOBULIN(SO-PB-S TL) 0.3 g/dL 0.2-0.3 ALPHA-2 GLOBULIN(SO-PB-S TL) 0.8 g/dL 0.5-0.9 BETA 1 GLOBULIN(SO-PB-S TL) 0.5 g/dL 0.4-0.6 GAMMA GLOBULIN (SO-PB-STL) 0.9 g/dL 0.8-1.7 TOTAL PROTEIN (SO-PB-STL) 6.8 g/dL 6.1-8.1 ALBUMIN(ELECTROP HORESIS 3.8 g/dL 3.8-4.8 BETA 2 GLOBULIN (SO-PB) 0.4 g/dL 0.2-0.5 INTERPRETATION (STL-PB) SEE NOTE ABNORMAL PROTEIN BAND 1 (SO-PB-STL) SEE NOTE Sep 26, 2023 11:[address] [facility] HGA1C Specimen Type: BLOOD No comment entered. Ordering Provider: KRISTINA PANCHAL Report Released Date/Time: Sep 26, 2023 10:20 AM Reporting Lab: [facility] [address] [facility] [id number] Performing Lab: [address] [phone] HGA1C 7.4 H 4.0-6.0 Sep 26, 2023 11:[address] [facility] LIPID PANEL (STL) Specimen Type: PLASMA Comment: No hemolysis noted. Ordering Provider: KRISTINA PANCHAL Report Released Date/Time: Sep 26, 2023 10:20 AM Reporting Lab: [facility] [address] [facility] [phone] Performing Lab: [facility] [address] [place] [phone] CHOLESTEROL 154 mg/dL 0-200 TRIGLYCERIDE 209 mg/dL H 0-150 CALCULATED LDL 69 mg/dL HDL(New) 43 mg/dL >40 Sep 26, 2023 11:[address] [facility] B12 Specimen Type: SERUM No comment entered. Ordering Provider: KRISTINA PANCHAL Report Released Date/Time: Sep 26, 2023 10:20 AM Reporting Lab: [facility] [address] [place] [phone] Performing Lab: [facility] [address] [facility] [phone] B12 724 pg/mL [phone] Sep 26, 2023 11:[address] [facility] MICRAL/CREAT PROFILE (STL) Specimen Type: URINE No comment entered. Ordering Provider: KRISTINA PANCHAL Report Released Date/Time: Sep 26, 2023 10:20 AM Reporting Lab: [facility] [address] [place] [phone] Performing Lab: [facility] [address] [place] [phone] URINE ALBUMIN (PB-STL) 27.5 mg/L uACR (STL) 55 mg/g H 0-29 CREATININE URINE/OTHERS 50.4 mg/dL L 63-166 Sep 26, 2023 11:[address] [facility] CBC Specimen Type: BLOOD No comment entered. Ordering Provider: KRISTINA PANCHAL Report Released Date/Time: Sep 26, 2023 10:20 AM Reporting Lab: [facility] [address] [facility] [phone] Performing Lab: [facility] [place] [address] [phone] WBC 5.7 10*3/uL 3.6-11.2 RBC 3.68 10*6/uL [...] ABSOLUTE 0.05 10*3/uL 0.00-0.20 Sep 26, 2023 11:[address] [facility] COMPREHENSIVE METABOLIC PANEL Specimen Type: PLASMA Comment: No hemolysis noted. Ordering Provider: KRISTINA PANCHAL Report Released Date/Time: Sep 26, 2023 10:20 AM Reporting Lab: [address] [phone] Performing Lab: [address] [phone] CREATININE 1.21 mg/dL 0.7-1.3 UREA NITROGEN 16.4 [...] (CKD-EPI 2020) 59.0 >60 Sep 26, 2023 09:[address] [facility] GLUCOSE,BLOOD-poct (STL) Specimen Type: BLOOD Comment: Test Performed by: [id number] Meter #: [id number] Ordering Provider: KRISTINA PANCHAL Report Released Date/Time: Sep 26, 2023 03:59 PM Reporting Lab: [facility] [address] [facility] [phone] Performing Lab: [facility] [address] [facility] [phone] GLUCOSE,BLOOD-po ct (STL) 181 mg/dL H 72-99 Social History: Smoking Status (Most current) and Tobacco Use (All prior to encounter date) This section includes the most current, and the historical, smoking and tobacco- related health factors from the [place] facility where the Encounter took place. Current Smoking Status This section includes the most current smoking, or tobacco-related health factor, from the [place] facility where the Encounter took place. Date/Time Current Smoking Status Comment Leonela ity December 07, 2015 03:10 PM QUIT TOBACCO >7 YEARS AGO [facility] Tobacco Use History This section includes a history of the smoking, or tobacco-related health factors, that were collected on or before the date of the Encounter. The data comes from the [place] facility where the Encounter took place. Date/Time [...] CURRENT NON-TOBACC O USER-HX OF USE QUIT [address] [place] [address] Apr 21, 2003 09:25 AM CURRENT NON-TOBACC O USER-RECENTLY QUIT quit [address] [place] [address] Apr 21, 2003 09:25 AM TOBACCO USE quit [address] [place] [address] Nov 07, 2002 09:14 AM CURRENT NON-TOBACC O USER-RECENTLY QUIT quit [address] [place] [address] Nov 07, 2002 09:14 AM TOBACCO USE quit [address] [place] [address] Nov 08, 2001 08:09 AM CURRENT NON-TOBACC O USER-HX OF USE quit 20 yrs. ago [facility] Advance Directives: All historical and current Section Date Range: From patient's date of to the date document was created. This section includes ALL of a patient's completed or amended [place] Advance and Rescinded Directives. The entries below indicate that a directive exists for the patient, but an actual copy is not included with this document. The data comes from all [place] facilities. Date Advance Directives Provider Source Mar 26, 2021 ADVANCE DIRECTIVE DISCUSSION Jaqueline LEON [facility] Jun 12, 2014 ADVANCE DIRECTIVE DISCUSSION GÓMEZ ESPINAL [facility] Encounter Notes: All associated encounter notes This section contains the clinical notes associated to the Encounter. Date/Time Encounter Note(s) Provider Source Sep 25, 2023 09:50 AM NURSING NOTE: LOCAL TITLE: V15 PACT TELEPHONE CONTACT NOTE [facility] STANDARD TITLE: NURSING NOTE DATE OF NOTE: SEP 25, 2023@09:50 ENTRY DATE: SEP 25, 2023@09:50:15 AUTHOR: KATTY JANE COSIGNER: URGENCY: STATUS: COMPLETED Patient/Other contacted: If other, name: Luanne - Patient Identifiers : Full Name Date of Appointment Reminder: Outbound call to patient to remind of upcoming: Provider in-person with Dr. Panchal Appointment is scheduled for: Sep@10:00 Appointment type: In-person, instructed to: Write down any questions you may have to discuss with your provider at your appointment. Bring any forms or non-VA records if needed. Arrive 15 mins early to check-in allowing time for traffic and parking. Take your medicine as you normally would that morning, and bring all your medicine with you to the appointment: this includes any purchased over the counter that you are using. Clinical reminders: Other: Unable to complete at this time. Encouraged to contact PC Team with questions/concerns or if need to reschedule/cancel appointment. Provided/reviewed the nurse advice line (ext [phone]) for medical needs after hours. Contact understanding verified by teach back: Yes Total time spent on phone: 5 minutes /yesenia/ KATTY JANE LICENSED PRACTICAL NURSE Signed: 09/25/2023 09:51 [address] [facility]
--- OUTSIDE RECORDS SUMMARY | 2024-07-23 06:10 | XMS_ITS | Encounter Summary ---
Author Name [facility] [place] Organization [facility] [place] Address [address] [place] [address] Care Team Providers Care Cone Worker Name Role Phone ABDULKADIR KRISTINA Primary Care [...] COURTNEY PLUS 1 Jul 24, 2015 106 [id number] [phone] PAYAM GONZALEZ PATIENT ANTHE[place] FEP PREFERRED PROVIDER ORGANIZAT ION (PPO) FEP STAND COURTNEY PLUS 1 Jul 24, 2015 106 [id number] [phone] PAYAM GONZALEZ PATIENT ANTHE[place] F[place] PREFERRED PROVIDER ORGANIZAT ION (PPO) FEP STAND COURTNEY PLUS 1 Jul 24, 2015 106 [id number] [phone] PAYAM GONZALEZ PATIENT BCBS FEP RETIREE [id number] Jan 22, 2004 105 [id number] PAYAM GONZALEZ PATIENT [place] F[place] PREFERRED PROVIDER ORGANIZAT ION (PPO) FEP STAND COURTNEY PLUS 1 Jul 24, 2015 106 [id number] [phone] PAYAM GONZALEZ PATIENT [place] FEP PRESCRIPT [place]ON [id number] Jan 22, 2004 [id number] PAYAM GONZALEZ PATIENT MEDICARE (WNR) MEDICARE (M) PART A Jan 22, 2004 PART A [id number] PAYAM GONZALEZ PATIENT MEDICARE (WNR) MEDICARE (M) PART B Jan 22, 2004 PART B [id number] PAYAM GONZALEZ PATIENT MEDICARE (WNR) MEDICARE (M) PART A Jan 22, 2004 PART A [id number] [phone] PAYAM GONZALEZ PATIENT MEDICARE (WNR) MEDICARE (M) PART B Jan 22, 2004 PART B [id number] PAYAM GONZALEZ PATIENT Selected Encounter This section includes the information on record at NH for the Encounter. Date/Time Encounter Type Encounter Description Reason Provider Source Sep 20, 2023 05:04 PM Outpatient Encounter PRIMARY CARE/MEDICINE ERNESTO OZUNA [facility] Encounter Template Text not used by NH Plan of Treatment: Future Appointments (+ 6 months) and Future Tests (+/- 45 days) The Plan of Treatment section includes future care activities for the patient from all NH treatmentfacilities. This section includes future appointments and future orders which are active, pending or scheduled. Future Appointments This section includes appointments that were scheduled to occur 6 months from the date of the Encounter, up to a maximum of 20 appointments. The data comes from all NH treatment facilities. Appointment Date/Time Appointment Type Appointme nt Facility Name Sep 26, 2023 10:00 AM AMBULATORY - MEDICINE [facility] Oct 09, 2023 11:00 AM AMBULATORY - NONE [facility] Lab Results: +/- 30 days of the encounter This section includes the Chemistry and Hematology Lab Results on record with NH for the patient. Radiology Reports and Pathology Reports are provided separately, in subsequent sections. Lab Results This section contains the Chemistry/Hematology Results that were resulted 30 days before or 30 daysafter the date of the Encounter. Date/Time Source Result Type Result - Unit Interpretation Reference Range Comment Sep 26, 2023 11:30 AM [facility] PROTEIN ELECTROPHORESIS BLOOD Specimen Type: SERUM Comment: No M Leandro detected. Reference Range: None Detected Normal Serum Protein Electrophoresis Pattern. No abnormal protein bands (M-protein) detected. Test Performed by [facility], [email or web address] [facility], [address] [place] [address] Alfred Aly M.D., Ph.D., Director of Laboratories , [facility] [id number] Ordering Provider: KRISTINA PANCHAL Report Released Date/Time: Sep 26, 2023 10:20 AM Reporting Lab: [facility] [address] [facility] [phone] Performing Lab: [facility] [id number] [facility] ALPHA-1 GLOBULIN(SO-PB-S TL) 0.3 g/dL 0.2-0.3 ALPHA-2 GLOBULIN(SO-PB-S TL) 0.8 g/dL 0.5-0.9 BETA 1 GLOBULIN(SO-PB-S TL) 0.5 g/dL 0.4-0.6 GAMMA GLOBULIN (SO-PB-STL) 0.9 g/dL 0.8-1.7 TOTAL PROTEIN (SO-PB-STL) 6.8 g/dL 6.1-8.1 ALBUMIN(ELECTROP HORESIS 3.8 g/dL 3.8-4.8 BETA 2 GLOBULIN (SO-PB) 0.4 g/dL 0.2-0.5 INTERPRETATION (STL-PB) SEE NOTE ABNORMAL PROTEIN BAND 1 (SO-PB-STL) SEE NOTE Sep 26, 2023 11:30 AM [facility] HGA1C Specimen Type: BLOOD No comment entered. Ordering Provider: KRISTINA PANCHAL Report Released Date/Time: Sep 26, 2023 10:20 AM Reporting Lab: [facility] [address] [facility] [address] Performing Lab: [facility] [address] [facility] [address] HGA1C 7.4 H 4.0-6.0 Sep 26, 2023 11:30 AM [facility] B12 Specimen Type: SERUM No comment entered. Ordering Provider: KRISTINA PANCHAL Report Released Date/Time: Sep 26, 2023 10:20 AM Reporting Lab: [facility] [address] [place] [phone] Performing Lab: [facility] [address] [place] [id number] B12 724 pg/mL [phone] Sep 26, 2023 11:30 AM [facility] MICRAL/CREAT PROFILE (STL) Specimen Type: URINE No comment entered. Ordering Provider: KRISTINA PANCHAL Report Released Date/Time: Sep 26, 2023 10:20 AM Reporting Lab: [address] [phone] Performing Lab: [address] [address] URINE ALBUMIN (PB-STL) 27.5 mg/L uACR (STL) 55 mg/g H 0-29 CREATININE URINE/OTHERS 50.4 mg/dL L 63-166 Sep 26, 2023 11:30 AM [facility] COMPREHENSIVE METABOLIC PANEL Specimen Type: PLASMA Comment: No hemolysis noted. Ordering Provider: KRISTINA PANCHAL Report Released Date/Time: Sep 26, 2023 10:20 AM Reporting Lab: [facility] [address] [place] [phone] Performing Lab: [address] [address] CREATININE 1.21 mg/dL 0.7-1.3 UREA NITROGEN 16.4 [...] 59.0 >60 Sep 26, 2023 11:30 AM [facility] LIPID PANEL (STL) Specimen Type: PLASMA Comment: No hemolysis noted. Ordering Provider: KRISTINA PANCHAL Report Released Date/Time: Sep 26, 2023 10:20 AM Reporting Lab: [facility] [address] [facility] [phone] Performing Lab: [facility] [address] [place] [phone] CHOLESTEROL 154 mg/dL 0-200 TRIGLYCERIDE 209 mg/dL H 0-150 CALCULATED LDL 69 mg/dL HDL(New) 43 mg/dL >40 Sep 26, 2023 11:30 AM [facility] CBC Specimen Type: BLOOD No comment entered. Ordering Provider: KRISTINA PANCHAL Report Released Date/Time: Sep 26, 2023 10:20 AM Reporting Lab: [facility] [address] [facility] [phone] Performing Lab: [facility] [address] [facility] [address] WBC 5.7 10*3/uL 3.6-11.2 RBC 3.68 10*6/uL [...] 10*3/uL 0.00-0.20 Sep 26, 2023 09:55 AM [facility] GLUCOSE,BLOOD-poct (STL) Specimen Type: BLOOD Comment: Test Performed by: [id number] Meter #: [id number] Ordering Provider: KRISTINA PANCHAL Report Released Date/Time: Sep 26, 2023 03:59 PM Reporting Lab: [facility] [address] [facility] [address] Performing Lab: [place] [address] [facility] [phone] GLUCOSE,BLOOD-po ct (STL) 181 mg/dL H 72-99 Social History: Smoking Status (Most current) and Tobacco Use (All prior to encounter date) This section includes the most current, and the historical, smoking and tobacco- related health factors from the NH facility where the Encounter took place. Current Smoking Status This section includes the most current smoking, or tobacco-related health factor, from the NH facility where the Encounter took place. Date/Time Current Smoking Status Comment Leonela ity December 07, 2015 03:10 PM QUIT TOBACCO >7 YEARS AGO [facility] Tobacco Use History This section includes a history of the smoking, or tobacco-related health factors, that were collected on or before the date of the Encounter. The data comes from the NH facility where the Encounter took place. Date/Time Smoking Status/Tobacco Use Comment F acility May 20, 2014 09:22 AM QUIT TOBACCO >7 YEARS AGO [facility] Feb 19, 2013 09:01 AM QUIT TOBACCO >7 YEARS AGO [facility] December 20, 2006 08:06 AM QUIT TOBACCO >7 YEARS AGO [facility] Jun 12, 2006 09:00 AM CURRENT NON-TOBACC O USER-HX OF USE [facility] Jun 12, 2006 09:00 AM TOBACCO TERMINATION STAGE [facility] December 07, 2005 11:12 AM CURRENT NON-TOBACC O USER-HX OF USE [facility] December 07, 2005 11:12 AM TOBACCO TERMINATION STAGE [facility] Mar 21, 2005 01:46 PM CURRENT NON-TOBACC O USER-HX OF USE [facility] Mar 21, 2005 01:46 PM TOBACCO TERMINATION STAGE [facility] Mar 03, 2004 09:58 AM CURRENT NON-TOBACC O USER-HX OF USE [facility] Mar 03, 2004 09:58 AM TOBACCO TERMINATION [facility] Apr 21, 2003 09:25 AM CURRENT NON-TOBACC O USER-HX OF USE QUIT [address] [place] [address] Apr 21, 2003 09:25 AM CURRENT NON-TOBACC O USER-RECENTLY QUIT quit [address] [place] [address] Apr 21, 2003 09:25 AM TOBACCO USE quit [address] [place] [address] Nov 07, 2002 09:14 AM CURRENT NON-TOBACC O USER-RECENTLY QUIT quit [address] [place] [address] Nov 07, 2002 09:14 AM TOBACCO USE quit [address] [place] [address] Nov 08, 2001 08:09 AM CURRENT NON-TOBACC O USER-HX OF USE quit 20 yrs. ago [facility] Advance Directives: All historical and current Section Date Range: From patient's date of to the date document was created. This section includes ALL of a patient's completed or amended [place] Advance and Rescinded Directives. The entries below indicate that a directive exists for the patient, but an actual copy is not included with this document. The data comes from all [facility]. Date Advance Directives Provider Source Mar 26, 2021 ADVANCE DIRECTIVE DISCUSSION Jaqueline LEON [facility] Jun 12, 2014 ADVANCE DIRECTIVE DISCUSSION GÓMEZ ESPINAL [facility] Encounter Notes: All associated encounter notes This section contains the clinical notes associated to the Encounter. Date/Time Encounter Note(s) Provider Source Sep 25, 2023 02:34 PM ADDENDUM: LOCAL TITLE: Addendum STANDARD TITLE: ADDENDUM DATE OF NOTE: SEP 25, 2023@14:34:26 ENTRY DATE: SEP 25, 2023@14:34:27 AUTHOR: KRISTINA PANCHAL COSIGNER: URGENCY: STATUS: COMPLETED I think it's ok to wait until the visit for exactly the reason you mentioned (I may want to add addl labs based on the visit). thanks! MAKEDA /yesenia/ KRISTINA PANCHAL MD STAFF PHYSICIAN INTERNAL MEDICINE Signed: 09/25/2023 14:34 Receipt Acknowledged By: 09/25/2023 14:49 /yesenia/ LACIE OZUNA MSN RN REGISTERED NURSE ====== --- Original Document --- 09/20/23 PRIMARY CARE SECURE MESSAGING: ------Original Message ------- Sent: 09/20/2023 12:59 PM ET From: VAUGHN GONZALEZ To: [facility], 4_Mina PANCHAL_Primary Care, [facility] Subject: General:September 25 appointment I have a appointment on September 26, 2023 at 10am. My question is: Am I supposed to get a blood test before I come in or wait until after like last time? My private doctor gave me a script to be done before 01/15/24 but he said if you want one now he would take results of that. He did not get full test last time I saw him on . Here is what Dr. Tsang ordered: Comprehensive Metabolic Panel Hemoglobin A1C Complete Blood Count No diff Thyroid Stimulating Hormone Dr. Janki Tsang [facility]. [id number] [phone] ------Original Message ------- Sent: 09/20/2023 05:03 PM ET From: LACIE OZUNA To: VAUGHN GONZALEZ Subject: General:September 25 appointment Hi Mr. Gonzalez, You just had those labs in May, so I would need to ask Dr. Panchal. I think it would be best for her to evaluate what is going on with you and order them when you are here 09/26/23. That way if she wants something else you don't have to get stuck twice. Sonia Ozuna RN care manager /es/ LACIE OZUNA MSN RN REGISTERED NURSE Signed: 09/20/2023 16:04 Receipt Acknowledged By: 09/25/2023 14:34 /yesenia/ KRISTINA PANCHAL MD STAFF PHYSICIAN INTERNAL MEDICINE KRISTINA PANCHAL [facility] Sep 20, 2023 05:04 PM PRIMARY CARE SECUR E MESSAGING: LOCAL TITLE: PRIMARY CARE SECURE MESSAGING STANDARD TITLE: PRIMARY CARE SECURE MESSAGING DATE OF NOTE: SEP 20, 2023@17:04 ENTRY DATE: SEP 20, 2023@16:04:20 AUTHOR: LACIE OZUNA EXP COSIGNER: URGENCY: STATUS: COMPLETED PRIMARY CARE SECURE MESSAGING Has ADDENDA ------Original Message ------- Sent: 09/20/2023 12:59 PM ET From: VAUGHN GONZALEZ To: ST, 4_Mina PANCHAL_[facility] Subject: General:September 25 appointment I have a appointment on September 26, 2023 at 10am. My question is: Am I supposed to get a blood test before I come in or wait until after like last time? My private doctor gave me a script to be done before 01/15/24 but he said if you want one now he would take results of that. He did not get full test last time I saw him on . Here is what Dr. Tsang ordered: Comprehensive Metabolic Panel Hemoglobin A1C Complete Blood Count No diff Thyroid Stimulating Hormone Dr. Janki Tsang [facility]. [id number] [phone] ------Original Message ------- Sent: 09/20/2023 05:03 PM ET From: LACIE OZUNA To: VAUGHN GONZALEZ Subject: General:September 25 appointment Hi Mr. Gonzalez, You just had those labs in May, so I would need to ask Dr. Panchal. I think it would be best for her to evaluate what is going on with you and order them when you are here 09/26/23. That way if she wants something else you don't have to get stuck twice. Sonia Ozuna, senior clinical project manager /yesenia/ LACIE OZUNA MSN RN REGISTERED NURSE Signed: 09/20/2023 16:04 Receipt Acknowledged By: 09/25/2023 14:34 /yesenia/ KRISTINA PANCHAL MD STAFF PHYSICIAN INTERNAL MEDICINE 09/25/2023 ADDENDUM STATUS: COMPLETED I think it's ok to wait until the visit for exactly the reason you mentioned (I may want to add addl labs based on the visit). thanks! AF /yesenia/ KRISTINA PANCHAL MD STAFF PHYSICIAN INTERNAL MEDICINE Signed: 09/25/2023 14:34 Receipt Acknowledged By: * AWAITING SIGNATURE * LACIE OZUNA LAURENCIA A [facility]
--- OUTSIDE RECORDS SUMMARY | 2024-07-23 06:10 | XMS_ITS | Encounter Summary ---
Author Name [facility] [place] [facility] [place] Organization [facility] [place] [facility] [place] Address [address] [place] [address] Care Team Providers Care Director Skills Name Role Phone KRISTINA PANCHAL Primary Care [...] COURTNEY PLUS 1 Jul 24, 2015 106 [id number] [phone] PAYAM GONZALEZ PATIENT [place] F[place] PREFERRED PROVIDER ORGANIZAT ION (PPO) FEP STAND COURTNEY PLUS 1 Jul 24, 2015 106 [id number] [phone] PAYAM GONZALEZ PATIENT [place] PREFERRED PROVIDER ORGANIZAT ION (PPO) FEP STAND COURTNEY PLUS 1 Jul 24, 2015 106 [id number] [phone] PAYAM GONZALEZ PATIENT [employer] FEP RETIREE [id number] Jan 22, 2004 105 [id number] PAYAM GONZALEZ PATIENT [place] PREFERRED PROVIDER ORGANIZAT ION (PPO) FEP STAND COURTNEY PLUS 1 Jul 24, 2015 106 [id number] [phone] PAYAM GONZALEZ PATIENT [place] FEP PRESCRIPT [place] [id number] Jan 22, 2004 [id number] [phone] PAYAM GONZALEZ PATIENT MEDICARE (WNR) MEDICARE (M) PART A Jan 22, 2004 PART A [id number] PAYAM GONZALEZ PATIENT MEDICARE (WNR) MEDICARE (M) PART B Jan 22, 2004 PART B [id number] PAYAM GONZALEZ PATIENT MEDICARE (WNR) MEDICARE (M) PART A Jan 22, 2004 PART A [id number] [phone] PAYAM GONZALEZ PATIENT MEDICARE (WNR) MEDICARE (M) PART B Jan 22, 2004 PART B [id number] PAYAM GONZALEZ PATIENT Selected Encounter This section includes the information on record at [place] for the Encounter. Date/Time Encounter Type Encounter Description Reason Pro vider Source Mar 13, 2024 10:02 AM Outpatient Encounter ADMIN PAT ACTIVTIES (MASNONCT) IHE Encounter Template Text not used by [place] Plan of Treatment: Future Appointments (+ 6 [...] Date/Time Appointment Type Appointme nt Facility Name Apr 25, 2024 03:00 PM AMBULATORY - MEDICINE [facility] May 28, 2024 10:30 AM AMBULATORY - MEDICINE [facility] Jun 04, 2024 10:30 AM AMBULATORY - SURGERY [facility] Jun 19, 2024 09:00 AM AMBULATORY - SURGERY [facility] Jun 21, 2024 10:00 AM AMBULATORY - SURGERY [facility] Porsha [facility] Jul 03, 2024 10:20 AM AMBULATORY - SURGERY . Porsha ERICK [facility] Jul 15, 2024 10:00 AM AMBULATORY - SURGERY . Porsha [facility] Jul 30, 2024 01:00 PM AMBULATORY - NONE . MARIZOL Hansen [facility] Jul 31, 2024 08:30 AM AMBULATORY - NONE [facility] MARIZOL Hansen [facility] Social History: Smoking Status (Most current) and Tobacco Use (All prior to encounter date) This section includes the most current, and the historical, smoking and tobacco- related health factors from the [place] facility where the Encounter took place. Current Smoking Status This section includes the most current smoking, or tobacco-related health factor, from the [place] facility where the Encounter took place. Date/Time Current Smoking Status Comment Leonela franco December 07, 2015 03:10 PM QUIT TOBACCO >7 YEARS AGO [facility] Tobacco Use History This section includes a history of the smoking, or tobacco-related health factors, that were collected on or before the date of the Encounter. The data comes from the [place] facility where the Encounter took place. Date/Time Smoking Status/Tobacco Use Comment F acmaggie May 20, 2014 09:22 AM QUIT TOBACCO >7 YEARS AGO [facility] Feb 19, 2013 09:01 AM QUIT TOBACCO >7 YEARS AGO [facility] December 20, 2006 08:06 AM QUIT TOBACCO >7 YEARS AGO [facility] Jun 12, 2006 09:00 AM CURRENT NON-TOBACC O USER-HX OF USE [facility] Jun 12, 2006 09:00 AM TOBACCO TERMINATION STAGE [facility] December 07, 2005 11:12 AM CURRENT NON-TOBACC O USER-HX OF USE [facility] December 07, 2005 11:12 AM TOBACCO TERMINATION STAGE [facility] Mar 21, 2005 01:46 PM CURRENT NON-TOBACC O USER-HX OF USE [facility] Mar 21, 2005 01:46 PM TOBACCO TERMINATION STAGE [facility] Mar 03, 2004 09:58 AM CURRENT NON-TOBACC O USER-HX OF USE [facility] Mar 03, 2004 09:58 AM TOBACCO TERMINATION STAGE [facility] Apr 21, 2003 09:25 AM CURRENT NON-TOBACC O USER-HX OF USE QUIT 1971 [facility] Apr 21, 2003 09:25 AM CURRENT NON-TOBACC O USER-RECENTLY QUIT quit 1971 [facility] Apr 21, 2003 09:25 AM TOBACCO USE quit [address] [place] [address] Nov 07, 2002 09:14 AM CURRENT NON-TOBACC O USER-RECENTLY QUIT quit [address] [place] [address] Nov 07, 2002 09:14 AM TOBACCO USE quit [address] [place] [address] Nov 08, 2001 08:09 AM CURRENT NON-TOBACC O USER-HX OF USE quit 20 yrs. ago [facility] Advance Directives: All historical and [...] 2021 ADVANCE DIRECTIVE DISCUSSION Jaqueline LEON [facility] Jun 12, 2014 ADVANCE DIRECTIVE DISCUSSION GÓMEZ ESPINAL [facility] Encounter Notes: All associated encounter notes This section contains the clinical notes associated to the Encounter. Date/Time Encounter Note(s) Provider Source Mar 13, 2024 10:03 AM PHYSICIAN LETTERS: LOCAL TITLE: NO CONTACT LETTER ST STANDARD TITLE: PHYSICIAN LETTERS DATE OF NOTE: MAR 13, 2024@10:03 ENTRY DATE: MAR 13, 2024@10:03:28 AUTHOR: GARRETT FITZGERALD EXP COSIGNER: URGENCY: STATUS: COMPLETED NO CONTACT LETTER ST Has ADDENDA [facility] [address] [place] [address] MAR 13, 2024 VAUGHN GONZALEZ [address] [place] [phone] Dear Vaughn Gonzalez, Thank you for choosing the [facility] as your primary choice for health care. As a partner in your health care, we are attempting to contact you because we have been unsuccessful in reaching you by phone to schedule your clinic appointment. Please call us at [phone], extension [phone] to speak to us regarding making an appointment in the [facility] clinic. Your good health is important to us. Please contact us within 2 weeks from the date of this letter. If we do not hear from you, we will notify your referring provider and a new referral will be required to schedule an appointment. IMPORTANT: Due to COVID-19 we have greatly expanded our telehealth options, please contact the clinic to inquire about scheduling. 03/19/2024 ADDENDUM STATUS: COMPLETED Pt returned call to audiology stating he was returning a call to sched. He has Jun 19 audiology appt sched. No additional action needed. /yesenia/ Lars LEIVA Staff Family Support Coordinator, Surgery Service Signed: 03/19/2024 13:46 Sincerely, GARRETT FITZGERALD Advanced Evp Managing Director [facility] [id number] VAUGHN GONZALEZ KRISTON D [facility] Mar 13, 2024 10:02 AM ADMINISTRATIVE NOT E: LOCAL TITLE: SCHEDULING NOTE ST STANDARD TITLE: ADMINISTRATIVE NOTE DATE OF NOTE: MAR 13, 2024@10:02 ENTRY DATE: MAR 13, 2024@10:02:39 AUTHOR: GARRETT FITZGERALD EXP COSIGNER: URGENCY: STATUS: COMPLETED Minimum Scheduling attempts to contact the have been made. RTC/Appt/Consult request will be discontinued after 14 days. [facility]: Feb First Call to [place] - unsuccessful scheduling: Feb Unable to contact [place], letter sent: Feb Discontinue date (14 calendar days after letter is mailed): Mar ADDITIONAL RESULTS FROM SCHEDULING ATTEMPTS: /yesenia/ GARRETT FITZGERALD Advanced Evp Managing Director [facility] [id number] Signed: 03/13/2024 10:03 GARRETT FITZGERALD [facility]
--- OUTSIDE RECORDS SUMMARY | 2024-07-23 06:10 | XMS_ITS | Encounter Summary ---
Author Name [facility] [place] [facility] [place] [facility] [facility] [place] Address [address] [place] [address] Care Team Providers Care Store Host Name Role Phone ABDULKADIR KRISTINA Primary Care [...] COURTNEY PLUS 1 Jul 24, 2015 106 [id number] [phone] PAYAM ZHENG PATIENT ANTHE[place] FEP PREFERRED PROVIDER ORGANIZAT ION (PPO) FEP STAND COURTNEY PLUS 1 Jul 24, 2015 106 [id number] [phone] PAYAM ZHENG PATIENT ANTHE[place] F[place] PREFERRED PROVIDER ORGANIZAT ION (PPO) FEP STAND COURTNEY PLUS 1 Jul 24, 2015 106 [id number] [phone] PAYAM ZHENG PATIENT [employer] FEP RETIREE [id number] Jan 22, 2004 105 [id number] [phone] PAYAM ZHENG PATIENT [place] F[place] PREFERRED PROVIDER ORGANIZAT ION (PPO) FEP STAND COURTNEY PLUS 1 Jul 24, 2015 106 [id number] [phone] PAYAM ZHENG PATIENT [place] FEP PRESCRIPT ION [id number] Jan 22, 2004 [id number] PAYAM ZHENG PATIENT MEDICARE (WNR) MEDICARE (M) PART A Jan 22, 2004 PART A [id number] PAYAM ZHENG PATIENT MEDICARE (WNR) MEDICARE (M) PART B Jan 22, 2004 PART B [id number] PAYAM ZHENG PATIENT MEDICARE (WNR) MEDICARE (M) PART A Jan 22, 2004 PART A [id number] [phone] PAYAM ZHENG PATIENT MEDICARE (WNR) MEDICARE (M) PART B Jan 22, 2004 PART B [id number] PAYAM ZHENG PATIENT Selected Encounter This section includes the information on record at [place] for the Encounter. Date/Time Encounter Type Encounter Description Reason Provider Source Apr 23, 2024 12:53 PM Outpatient Encounter PRIMARY CARE/MEDICINE KATTY JANE Encounter Template Text not used by [place] Plan of Treatment: Future Appointments (+ 6 months) and Future Tests (+/- 45 days) The Plan of Treatment section includes future care activities for the patient from all [place] treatmentfacilities. This section includes future appointments and future orders which are active, pending or scheduled. Future Appointments This section includes appointments that were scheduled to occur 6 months from the date of the Encounter, up to a maximum of 20 appointments. The data comes from all [place] treatment facilities. Appointment Date/Time Appointment Type Appointme nt Facility Name Apr 25, 2024 03:00 PM AMBULATORY - MEDICINE [facility] May 28, 2024 10:30 AM AMBULATORY - MEDICINE [facility] Jun 04, 2024 10:30 AM AMBULATORY - SURGERY . [facility] Jun 19, 2024 09:00 AM AMBULATORY - SURGERY . [facility] Jun 21, 2024 10:00 AM AMBULATORY - SURGERY [facility] Jul 03, 2024 10:20 AM AMBULATORY - SURGERY . [facility] Jul 15, 2024 10:00 AM AMBULATORY - SURGERY . [facility] Jul 30, 2024 01:00 PM AMBULATORY - NONE [facility] Jul 31, 2024 08:30 AM AMBULATORY - NONE [facility] Oct 02, 2024 11:15 AM AMBULATORY - MEDICINE [facility] Social History: Smoking Status (Most current) and Tobacco Use (All prior to encounter date) This section includes the most current, and the historical, smoking and tobacco- related health factors from the [place] facility where the Encounter took place. Current Smoking Status This section includes the most current smoking, or tobacco-related health factor, from the [place] facility where the Encounter took place. Date/Time Current Smoking Status Comment Leonela franco December 07, 2015 03:10 PM QUIT TOBACCO >7 YEARS AGO [facility] Tobacco Use History This section includes a history of the smoking, or tobacco-related health factors, that were collected on or before the date of the Encounter. The data comes from the [place] facility where the Encounter took place. Date/Time [...] CURRENT NON-TOBACC O USER-HX OF USE QUIT 1972 [facility] Apr 21, 2003 09:25 AM CURRENT NON-TOBACC O USER-RECENTLY QUIT quit [address] [place] [address] Apr 21, 2003 09:25 AM TOBACCO USE quit [address] [place] [address] Nov 07, 2002 09:14 AM CURRENT NON-TOBACC O USER-RECENTLY QUIT quit [address] [place] [address] Nov 07, 2002 09:14 AM TOBACCO USE quit [address] [place] [address] Nov 08, 2001 08:09 AM CURRENT NON-TOBACC O USER-HX OF USE quit 20 yrs. ago [facility] Advance Directives: All historical and current Section Date Range: From patient's date of to the date document was created. This section includes ALL of a patient's completed or amended [place] Advance and Rescinded Directives. The entries below indicate that a directive exists for the patient, but an actual copy is not included with this document. The data comes from all [place] facilities. Date Advance Directives Provider Source Mar 26, 2021 ADVANCE DIRECTIVE DISCUSSION Jaqueline LEON [facility] Jun 12, 2014 ADVANCE DIRECTIVE DISCUSSION GÓMEZ ESPINAL [facility] Encounter Notes: All associated encounter notes This section contains the clinical notes associated to the Encounter. Date/Time Encounter Note(s) Provider Source Apr 23, 2024 12:53 PM NURSING NOTE: LOCAL TITLE: V15 PACT TELEPHONE CONTACT NOTE ST STANDARD TITLE: NURSING NOTE DATE OF NOTE: APR 23, 2024@12:53 ENTRY DATE: APR 23, 2024@12:53:52 AUTHOR: KATTY JANE COSIGNER: URGENCY: STATUS: COMPLETED Unable to contact: Left general message and directed to contact team with questions. Outbound call to patient for: Left voicemail reminding of appointment on April 25, [address] Kaiser at [facility]. Informed to arrive 15 minutes prior to appointment time and clinic number provided for any questions or concerns. /yesenia/ KATTY JANE LICENSED PRACTICAL NURSE Signed: 04/23/2024 12:55 KATTY JANE [facility]
--- OUTSIDE RECORDS SUMMARY | 2024-07-23 06:10 | XMS_ITS | Encounter Summary ---
Author Name [facility] [place] [facility] [place] [facility] [place] Address [address] [place] [address] Care Team Providers Care Salesforce Developer Name Role Phone ABDULKADIR KRISTINA Primary Care [...] COURTNEY PLUS 1 Jul 24, 2015 106 [id number] [phone] PAYAM GONZALEZ PATIENT [place] F[place] PREFERRED PROVIDER ORGANIZAT ION (PPO) FEP STAND COURTNEY PLUS 1 Jul 24, 2015 106 [id number] [phone] PAYAM GONZALEZ PATIENT [place] PREFERRED PROVIDER ORGANIZAT ION (PPO) FEP STAND COURTNEY PLUS 1 Jul 24, 2015 106 [id number] [phone] PAYAM GONZALEZ PATIENT [employer]BS FEP RETIREE [id number] Jan 22, 2004 105 [id number] PAYAM GONZALEZ PATIENT [place] F[place] PREFERRED PROVIDER ORGANIZAT ION (PPO) FEP STAND COURTNEY PLUS 1 Jul 24, 2015 106 [id number] [phone] PAYAM GONZALEZ PATIENT [place] F[place] PRESCRIPT [place]ON [id number] Jan 22, 2004 [id number] [phone] PAYAM GONZALEZ PATIENT MEDICARE (WNR) MEDICARE (M) PART A Jan 22, 2004 PART A [id number] PAYAM GONZALEZ PATIENT MEDICARE (WNR) MEDICARE (M) PART B Jan 22, 2004 PART B [id number] PAYAM GONZALEZ PATIENT MEDICARE (WNR) MEDICARE (M) PART A Jan 22, 2004 PART A [id number] PAYAM GONZALEZ PATIENT MEDICARE (WNR) MEDICARE (M) PART B Jan 22, 2004 PART B [id number] [phone] PAYAM GONZALEZ PATIENT Selected Encounter This section includes the information on record at [place] for the Encounter. Date/Time Encounter Type Encounter Description Reason Provider Source Sep 25, 2023 03:49 PM Outpatient Encounter PRIMARY CARE/MEDICINE [facility] Encounter Template Text not used by [place] Plan of Treatment: Future Appointments (+ 6 months) and Future Tests (+/- 45 days) The Plan of Treatment section includes future care activities for the patient from all [place] treatmentfacilities. This section includes future appointments and future orders which are active, pending or scheduled. Future Appointments This section includes appointments that were scheduled to occur 6 months from the date of the Encounter, up to a maximum of 20 appointments. The data comes from all [place] treatment facilities. Appointment Date/Time Appointment Type Appointme nt Facility Name Sep 26, 2023 10:00 AM AMBULATORY - MEDICINE [facility] Oct 09, 2023 11:00 AM AMBULATORY - NONE [facility] Lab Results: +/- 30 days of the encounter This section includes the Chemistry and Hematology Lab Results on record with [place] for the patient. Radiology Reports and Pathology Reports are provided separately, in subsequent sections. Lab Results This section contains the Chemistry/Hematology Results that were resulted 30 days before or 30 daysafter the date of the Encounter. Date/Time Source Result Type Result - Unit Interpretation Reference Range Comment Sep 26, 2023 11:30 AM [facility] PROTEIN ELECTROPHORESIS BLOOD Specimen Type: SERUM Comment: No M Leandro detected. Reference Range: None Detected Normal Serum Protein Electrophoresis Pattern. No abnormal protein bands (M-protein) detected. Test Performed by [facility], [facility], [address] [place] [address] Alfred Aly M.D., Ph.D., Director of Laboratories , [facility] [id number] Ordering Provider: KRISTINA PANCHAL Report Released Date/Time: Sep 26, 2023 10:20 AM Reporting Lab: [facility] [address] [facility] [phone] Performing Lab: [facility] [address] [facility] ALPHA-1 GLOBULIN(SO-PB-S TL) 0.3 g/dL 0.2-0.3 ALPHA-2 GLOBULIN(SO-PB-S TL) 0.8 g/dL 0.5-0.9 BETA 1 GLOBULIN(SO-PB-S TL) 0.5 g/dL 0.4-0.6 GAMMA GLOBULIN (SO-PB-STL) 0.9 g/dL 0.8-1.7 TOTAL PROTEIN (SO-PB-STL) 6.8 g/dL 6.1-8.1 ALBUMIN(ELECTROP HORESIS 3.8 g/dL 3.8-4.8 BETA 2 GLOBULIN (SO-PB) 0.4 g/dL 0.2-0.5 INTERPRETATION (STL-PB) SEE NOTE ABNORMAL PROTEIN BAND 1 (SO-PB-STL) SEE NOTE Sep 26, 2023 11:30 AM [facility] HGA1C Specimen Type: BLOOD No comment entered. Ordering Provider: KRISTINA PANCHAL Report Released Date/Time: Sep 26, 2023 10:20 AM Reporting Lab: [facility] [address] [facility] [address] Performing Lab: [facility] [address] [facility] [address] HGA1C 7.4 H 4.0-6.0 Sep 26, 2023 11:30 AM [facility] LIPID PANEL (STL) Specimen Type: PLASMA Comment: No hemolysis noted. Ordering Provider: KRISTINA PANCHAL Report Released Date/Time: Sep 26, 2023 10:20 AM Reporting Lab: [facility] [address] [facility] [phone] Performing Lab: [address] [address] CHOLESTEROL 154 mg/dL 0-200 TRIGLYCERIDE 209 mg/dL H 0-150 CALCULATED LDL 69 mg/dL HDL(New) 43 mg/dL >40 Sep 26, 2023 11:30 AM [facility] B12 Specimen Type: SERUM No comment entered. Ordering Provider: KRISTINA PANCHAL Report Released Date/Time: Sep 26, 2023 10:20 AM Reporting Lab: [place] [address] [facility] [address] Performing Lab: [facility] [address] [address] B12 724 pg/mL [phone] Sep 26, 2023 11:30 AM [facility] MICRAL/CREAT PROFILE (STL) Specimen Type: URINE No comment entered. Ordering Provider: KRISTINA PANCHAL Report Released Date/Time: Sep 26, 2023 10:20 AM Reporting Lab: [address] [address] Performing Lab: [facility] [address] URINE ALBUMIN (PB-STL) 27.5 mg/L uACR (STL) 55 mg/g H 0-29 CREATININE URINE/OTHERS 50.4 mg/dL L 63-166 Sep 26, 2023 11:30 AM [facility] COMPREHENSIVE METABOLIC PANEL Specimen Type: PLASMA Comment: No hemolysis noted. Ordering Provider: KRISTINA PANCHAL Report Released Date/Time: Sep 26, 2023 10:20 AM Reporting Lab: [facility] [address] [facility] [address] Performing Lab: [facility] [address] [facility] [address] CREATININE 1.21 mg/dL 0.7-1.3 UREA NITROGEN 16.4 [...] Sep 26, 2023 11:30 AM [facility] CBC Specimen Type: BLOOD No comment entered. Ordering Provider: KRISTINA PANCHAL Report Released Date/Time: Sep 26, 2023 10:20 AM Reporting Lab: [facility] [address] [facility] [address] Performing Lab: [facility] [address] [place] [phone] WBC 5.7 10*3/uL 3.6-11.2 RBC 3.68 10*6/uL [...] Sep 26, 2023 09:55 AM [facility] GLUCOSE,BLOOD-poct (STL) Specimen Type: BLOOD Comment: Test Performed by: [id number] Meter #: [id number] Ordering Provider: KRISTINA PANCHAL Report Released Date/Time: Sep 26, 2023 03:59 PM Reporting Lab: [facility] [address] [facility] [phone] Performing Lab: [place] [id number] [facility] [address] GLUCOSE,BLOOD-po ct (STL) 181 mg/dL H 72-99 Social History: Smoking Status (Most current) and Tobacco Use (All prior to encounter date) This section includes the most current, and the historical, smoking and tobacco- related health factors from the [place] facility where the Encounter took place. Current Smoking Status This section includes the most current smoking, or tobacco-related health factor, from the [place] facility where the Encounter took place. Date/Time Current Smoking Status Comment Leonela ittha December 07, 2015 03:10 PM QUIT TOBACCO >7 YEARS AGO [facility] Tobacco Use History This section includes a history of the smoking, or tobacco-related health factors, that were collected on or before the date of the Encounter. The data comes from the [place] facility where the Encounter took place. Date/Time Smoking Status/Tobacco Use Comment F acility May 20, 2014 09:22 AM QUIT TOBACCO >7 YEARS AGO [facility] Feb 19, 2013 09:01 AM QUIT TOBACCO >7 YEARS AGO [facility] December 20, 2006 08:06 AM QUIT TOBACCO >7 YEARS AGO [facility] Jun 12, 2006 09:00 AM CURRENT NON-TOBACC O USER-HX OF USE [facility] Jun 12, 2006 09:00 AM TOBACCO TERMINATION STAGE [facility] December 07, 2005 11:12 AM CURRENT NON-TOBACC O USER-HX OF USE [facility] December 07, 2005 11:12 AM TOBACCO TERMINATION STAGE [facility] Mar 21, 2005 01:46 PM CURRENT NON-TOBACC O USER-HX OF USE [facility] Mar 21, 2005 01:46 PM TOBACCO TERMINATION STAGE [facility] Mar 03, 2004 09:58 AM CURRENT NON-TOBACC O USER-HX OF USE [facility] Mar 03, 2004 09:58 AM TOBACCO TERMINATION [facility] Apr 21, 2003 09:25 AM CURRENT NON-TOBACC O USER-HX OF USE QUIT [address] [place] [address] Apr 21, 2003 09:25 AM CURRENT NON-TOBACC O USER-RECENTLY QUIT quit [address] [place] [address] Apr 21, 2003 09:25 AM TOBACCO USE quit [address] [place] [address] Nov 07, 2002 09:14 AM CURRENT NON-TOBACC O USER-RECENTLY QUIT quit [address] [place] [address] Nov 07, 2002 09:14 AM TOBACCO USE quit [address] [place] [address] Nov 08, 2001 08:09 AM CURRENT NON-TOBACC O USER-HX OF USE quit 20 yrs. ago [facility] Advance Directives: All historical and current Section Date Range: From patient's date of to the date document was created. This section includes ALL of a patient's completed or amended [place] Advance and Rescinded Directives. The entries below indicate that a directive exists for the patient, but an actual copy is not included with this document. The data comes from all [place] facilities. Date Advance Directives Provider Source Mar 26, 2021 ADVANCE DIRECTIVE DISCUSSION Jaqueline LEON [facility] Jun 12, 2014 ADVANCE DIRECTIVE DISCUSSION GÓMEZ ESPINAL [facility] Encounter Notes: All associated encounter notes This section contains the clinical notes associated to the Encounter. Date/Time Encounter Note(s) Provider Source Sep 25, 2023 03:49 PM PRIMARY CARE SECUR E MESSAGING: LOCAL TITLE: PRIMARY CARE SECURE MESSAGING STANDARD TITLE: PRIMARY CARE SECURE MESSAGING DATE OF NOTE: SEP 25, 2023@15:49 ENTRY DATE: SEP 25, 2023@14:49:53 AUTHOR: LACIE OZUNA COSIGNER: URGENCY: STATUS: COMPLETED ------Original Message --------- Sent: 09/25/2023 03:49 PM ET From: LACIE OZUNA To: VAUGHN GONZALEZ Subject: Test:Test Inquiry Hi Mr. Gonzalez, I asked Dr. Panchal if she wanted you to do labs prior to your visit and she would like to see you first to see what labs are needed. Sonia Ozuna, structural manager /es/ LACIE OZUNA MSN RN REGISTERED NURSE Signed: 09/25/2023 14:49 LACIE OZUNA [facility]
--- OUTSIDE RECORDS SUMMARY | 2024-07-23 06:10 | XMS_ITS | Encounter Summary ---
Author Name [facility] [facility] [place] [facility] [place] [facility] [place] Address [address] [place] [address] Care Team Providers Care Dormitory Maid Name Role Phone KRISTINA PANCHAL Primary Care [...] COURTNEY PLUS 1 Jul 24, 2015 106 [id number] [phone] PAYAM ZHENG PATIENT ANTHEM [employer] [place] FEP PREFERRED PROVIDER ORGANIZAT ION (PPO) FEP STAND COURTNEY PLUS 1 Jul 24, 2015 106 [id number] [phone] PAYAM ZHENG PATIENT AN[place] PREFERRED PROVIDER ORGANIZAT ION (PPO) FEP STAND COURTNEY PLUS 1 Jul 24, 2015 106 [id number] [phone] PAYAM ZHENG PATIENT [employer] FEP RETIREE [id number] Jan 22, 2004 105 [id number] PAYAM ZHENG PATIENT [place] F[place] PREFERRED PROVIDER ORGANIZAT ION (PPO) FEP STAND COURTNEY PLUS 1 Jul 24, 2015 106 [id number] [phone] PAYAM ZHENG PATIENT [place] FEP PRESCRIPT ION [id number] Jan 22, 2004 [id number] PAYAM ZHENG PATIENT MEDICARE (WNR) MEDICARE (M) PART A Jan 22, 2004 PART A [id number] [phone] PAYAM ZHENG PATIENT MEDICARE (WNR) MEDICARE (M) PART B Jan 22, 2004 PART B [id number] PAYAM ZHENG PATIENT MEDICARE (WNR) MEDICARE (M) PART A Jan 22, 2004 PART A [id number] PAYAM ZHENG PATIENT MEDICARE (WNR) MEDICARE (M) PART B Jan 22, 2004 PART B [id number] PAYAM ZHENG PATIENT Selected Encounter This section includes the information on record at [place] for the Encounter. Date/Time Encounter Type Encounter Description Reason Provider Source Jun 04, 2024 10:30 AM OFFICE O/P EST MOD 30 MIN OPHTHALMOLOGY ICD-10-CM H25.13 Age-related nuclear cataract, bilateral VEGA,VAUGHN B III IHE Encounter Template Text not used by [facility] Assessments - Encounter Diagnoses This section includes the primary and secondary diagnoses documented for the Encounter. Date/Time Primary/Secondary Diagnosis Diagnosis Name Provider Source Jun 04, 2024 12:28 PM PRIMARY Age-related nuclear cataract, bilateral VEGA,VAUGHN Rudd [facility] Jun 04, 2024 12:28 PM SECONDARY Cortical age-related cataract, right eye VEGA,VAUGHN Rudd [facility] Jun 04, 2024 12:28 PM SECONDARY Diplopia VEGA,VAUGHN Rudd [facility] Jun 04, 2024 12:28 PM SECONDARY Intermittent alternating exotropia VEGA,VAUGHN [facility] Jun 04, 2024 12:28 PM SECONDARY Puckering of macula, left eye VEGA,VAUGHN B [facility] Jun 04, 2024 12:28 PM SECONDARY Round hole, right eye VAUGHN VEGA [facility] Plan of Treatment: Future Appointments (+ 6 months) and Future Tests (+/- 45 days) The Plan of Treatment section includes future care activities for the [facility] This section includes future appointments and future orders which are active, pending or scheduled. Future Appointments This section includes appointments that were scheduled to occur 6 months from the date of the Encounter, up to a maximum of 20 appointments. The data comes from all [place] treatment facilities. Appointment Date/Time Appointment Type Appointme nt Facility Name Jun 19, 2024 09:00 AM AMBULATORY - SURGERY . [facility] Jun 21, 2024 10:00 AM AMBULATORY - SURGERY [facility] Jul 03, 2024 10:20 AM AMBULATORY - SURGERY [facility] Jul 15, 2024 10:00 AM AMBULATORY - SURGERY [facility] Jul 30, 2024 01:00 PM AMBULATORY - NONE [facility] Jul 31, 2024 08:30 AM AMBULATORY - NONE [facility] Oct 02, 2024 11:15 AM AMBULATORY - MEDICINE [facility] November 25, 2024 10:45 AM AMBULATORY - MEDICINE [facility] November 27, 2024 10:30 AM AMBULATORY - SURGERY [facility] Lab Results: +/- 30 days of the encounter This section includes the Chemistry and Hematology Lab Results on record with [place] for the patient. Radiology Reports and Pathology Reports are provided separately, in subsequent sections. Lab Results This section contains the Chemistry/Hematology Results that were resulted 30 days before or 30 daysafter the date of the Encounter. Date/Time Source Result Type Result - Unit Interpretation Reference Range Comment Jul 03, 2024 11:25 AM [facility] BASIC METABOLIC PANEL Specimen Type: PLASMA Comment: No hemolysis noted. Ordering Provider: JYOTI SIMMONS Report Released Date/Time: Jun 24, 2024 11:11 AM Reporting Lab: [facility] [place] [address] [address] Performing Lab: [address] [address] CREATININE 1.17 mg/dL 0.7-1.3 UREA NITROGEN 15.4 mg/dL 9.0-25.0 GLUCOSE 175 mg/dL H 72-99 SODIUM 140 meq/L 136-145 POTASSIUM 4.3 meq/L 3.5-5 CHLORIDE 106 meq/L 98-107 CARBON DIOXIDE 25 meq/L 22-31 CALCIUM 9.0 mg/dL 8.4-10.4 EGFR (CKD-EPI 2020) 61.1 >60 Jul 03, 2024 11:25 AM [facility] CBC Specimen Type: BLOOD No comment entered. Ordering Provider: JYOTI SIMMONS Report Released Date/Time: Jun 24, 2024 11:11 AM Reporting Lab: [address] [address] Performing Lab: [address] [address] WBC 8.1 10*3/uL 3.6-11.2 RBC 3.72 10*6/uL [...] and tobacco- related health factors from the [place] facility where the Encounter took place. Current Smoking Status This section includes the most current smoking, or tobacco-related health factor, from the [place] facility where the Encounter took place. Date/Time Current Smoking Status Comment Leonela franco December 07, 2015 03:10 PM QUIT TOBACCO >7 YEARS AGO [facility] Tobacco Use History This section includes a history of the smoking, or tobacco-related health factors, that were collected on or before the date of the Encounter. The data comes from the [place] facility where the Encounter took place. Date/Time Smoking Status/Tobacco Use Comment Abisai garcía May 20, 2014 09:22 AM QUIT TOBACCO >7 YEARS AGO [facility] Feb 19, 2013 09:01 AM QUIT TOBACCO >7 YEARS AGO [facility] December 20, 2006 08:06 AM QUIT TOBACCO >7 YEARS AGO [facility] Jun 12, 2006 09:00 AM CURRENT NON-TOBACC O USER-HX OF USE [facility] Jun 12, 2006 09:00 AM TOBACCO TERMINATION STAGE [facility] December 07, 2005 11:12 AM CURRENT NON-TOBACC O USER-HX OF USE [facility] December 07, 2005 11:12 AM TOBACCO TERMINATION STAGE [facility] Mar 21, 2005 01:46 PM CURRENT NON-TOBACC O USER-HX OF USE [facility] Mar 21, 2005 01:46 PM TOBACCO TERMINATION STAGE [facility] Mar 03, 2004 09:58 AM CURRENT NON-TOBACC O USER-HX OF USE [facility] Mar 03, 2004 09:58 AM TOBACCO TERMINATION STAGE [facility] Apr 21, 2003 09:25 AM CURRENT NON-TOBACC O USER-HX OF USE QUIT 1972 [facility] Apr 21, 2003 09:25 AM CURRENT NON-TOBACC O USER-RECENTLY QUIT quit 1971 [facility] Apr 21, 2003 09:25 AM TOBACCO USE quit [address] [place] [address] Nov 07, 2002 09:14 AM CURRENT NON-TOBACC O USER-RECENTLY QUIT quit 1971 [facility] Nov 07, 2002 09:14 AM TOBACCO USE quit 1971 [facility] Nov 08, 2001 08:09 AM CURRENT NON-TOBACC O USER-HX OF USE quit 20 yrs. ago [facility] Advance Directives: All historical and current Section Date Range: From patient's date of to the date document was created. This section includes ALL of a patient's completed or amended [place] Advance and Rescinded Directives. The entries below indicate that a directive exists for the patient, but an actual copy is not included with this document. The data comes from all [place] facilities. Date Advance Directives Provider Source Mar 26, 2021 ADVANCE DIRECTIVE DISCUSSION Jaqueline LEON [facility] Jun 12, 2014 ADVANCE DIRECTIVE DISCUSSION GÓMEZ ESPINAL [facility] Radiology Reports: +/- 30 days of the [...] the Encounter. The data comes from all [place] treatment facilities. Date/Time Radiology Report Provider Source Jul 03, 2024 10:59 AM CHEST X-RAY, 2 VIE WS: VAUGHN ZHENG [id number] -[id number] M Ex Date: JUL 03, 2024@10:59 Req Phys: DIAMOND SCRUGGS Loc: [facility] (Req'g Lo Img Loc: -MAIN RADIOLOGY SUITE Service: [address] [address] (Case [id number] COMPLETE) CHEST X-RAY, 2 VIEWS (RAD Detailed) CPT:37202 Reason for Study: Pre Op Clinical History: Report Status: Verified Date Reported: JUL 04, 2024 Date Verified: JUL 04, 2024 Radio Program Director E-Sig:/ES/KATY MCNEIL MD Report: Case #[id number]. Chest examination. COMPARISON: 05/25/2023. Finding: PA and lateral views of the chest examination shows no evidence of cardiomegaly. Tortuous aorta is seen. No evidence of pulmonary vascular congestion, consolidation or mass. No evidence of pleural effusion or pneumothorax. Impression: No evidence of pulmonary consolidation, mass or lymphadenopathy. Primary Interpreting Staff: KATY MCNEIL MD, Staff Physician - Radiologist (Radio Program Director) /KATY GONZALEZ [facility] Pathology Reports: +/- 30 days of [...] the Encounter. The data comes from all [place] treatment facilities. Date/Time Pathology Report Provider Source [...] - - POSTOPERATIVE DIAGNOSIS: Same Surgeon/physician: ALEX GARDNER RR =-=-=-=-=-=-=-=-=-=-=-=-=-=-=- =-=-=-=-=-=-=-=-=-=-=-=-=-=-=- =-=-=-=-=-=-=-=-=-= - - - - [...] crust scale. The cells stain positive for Mcgrath-1/Melan-A and SOX10 while they are negative for [...] /es/ BERNIE HOUSTON MD DERMATOLOGY & DERMATOPATHOLOGY Signed Jun 07, 2024@12:01 Performing Laboratory: Surgical Pathology Report Performed By: [facility] CLWV# [id number] [address] [place] [id number] $FTR - - - - - - [...] - - VAUGHN ZHENG STANDARD FORM 515 ID:[id number] SEX:M :1940 AGE: 84 LOC:DERMCON PCP: Kristina Panchal MD /yesenia/ BERNIE HOUSTON MD DERMATOLOGY & DERMATOPATHOLOGY Signed: 06/07/2024 12:01 BERNIE HOUSTON [facility] Encounter Notes: All associated encounter notes This section contains the clinical notes associated to the Encounter. Date/Time Encounter Note(s) Provider Source Jun 04, 2024 10:56 AM OPHTHALMOLOGY CONS ULT: LOCAL TITLE: OPHTHALMOLOGY CONSULT ST STANDARD TITLE: OPHTHALMOLOGY CONSULT DATE OF NOTE: JUN 04, 2024@10:56 ENTRY DATE: JUN 04, 2024@10:57:05 AUTHOR: VAUGHN VEGA II EXP COSIGNER: URGENCY: STATUS: COMPLETED Vision getting a bit blurry OD>OS Still having intermittent diplopia BCVA: 20/30- was 20/25- 20/20- was 20/25- P: Dilated ACT: 6 X 16 X(T)' at near PST (BI): 0/8/6 PST' (BI): 0 Tap: 16/15 G (06/14/22): Grade II-III OU SLEx Lids/Lashes (+)blepharitis OU Tears reduced tear prism OU Cornea No staining clear OU Conjunctiva (+)conj chalasis nasally OU (+)pinguecula temporal OS Sclera White and quiet OU Ant Chamber Deep and quiet OU No cells/flare OU Iris Normal OU Lens 1+/2+ NSC/CS OU (cortical densest infronasally OD) DFEx CDR: 0.2/0.15 with HNRR. Mild tilt and PPA OU +PVD OU with vit syneresis OD>OS Mild macular RPE changes Mild BANK OFFICER OU with single macular MA OU Peripheral reticular changes OU plus... OD: small operculated hole nasally, flat with pigment and no traction OS: large cryo scar temporally with old operculum OCT (06/04/24): OD: single non-central drusen OD OS: ERM OS with mild surface irregularity - no cyst/hole ===== 84 year old with... 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 DM - Stable mild BANK OFFICER OU without DME - last A1c 7.4 - Follow annually 3. Operculated hole OD - Small, chronic, pigmented - no traction - RD precautions discussed 4. H/O retinal tear OS - s/p pneumatic retinpexy and cryo 2002 - thin ERM without cyst/hole - RD precautions discussed 5. RE/P - New MRx today with 3^ BI OU (was 2^ BI OU was 1^ BI OU) 6. Small X(T) with CI - Intermittently symptomatic at near - Con't convergence exercises (pencil given today) - New MRx with 2^ BI OU (was 1^ BI OU last year) New MRx today with 3^ BI OU with A/R and transition Recheck in 6 months with gonio - may be time for CEIOL OD /yesenia/ Jared Vega III MD Staff Physician, Ophthalmology Signed: 06/04/2024 12:28 VAUGHN VEGA III [facility]
--- OUTSIDE RECORDS SUMMARY | 2024-07-23 06:10 | XMS_ITS | Encounter Summary ---
Author Name [facility] [place] [facility] [place] Address [address] [place] [address] Care Team Providers Care Automobile Seat Cover Installer Name Role Phone ABDULKADIR KRISTINA Primary [...] COURTNEY PLUS 1 Jul 24, 2015 106 [id number] [phone] PAYAM ZHENG PATIENT AN[place] F[place] PREFERRED PROVIDER ORGANIZAT ION (PPO) FEP STAND COURTNEY PLUS 1 Jul 24, 2015 106 [id number] [phone] PAYAM ZHENG PATIENT [place] PREFERRED PROVIDER ORGANIZAT ION (PPO) FEP STAND COURTNEY PLUS 1 Jul 24, 2015 106 [id number] [phone] PAYAM ZHENG PATIENT [employer] FEP RETIREE [id number] Jan 22, 2004 105 [id number] [phone] PAYAM ZHENG PATIENT [place] PREFERRED PROVIDER ORGANIZAT ION (PPO) FEP STAND COURTNEY PLUS 1 Jul 24, 2015 106 [id number] [phone] PAYAM ZHENG PATIENT [place] FEP PRESCRIPT [place]ON [id number] Jan 22, 2004 [id number] PAYAM ZHENG PATIENT MEDICARE (WNR) MEDICARE (M) PART A Jan 22, 2004 PART A [id number] [phone] PAYAM ZHENG PATIENT MEDICARE (WNR) MEDICARE (M) PART B Jan 22, 2004 PART B [id number] PAYAM ZHENG PATIENT MEDICARE (WNR) MEDICARE (M) PART A Jan 22, 2004 PART A [id number] PAYAM ZHENG PATIENT MEDICARE (WNR) MEDICARE (M) PART B Jan 22, 2004 PART B [id number] [phone] PAYAM ZHENG PATIENT Selected Encounter This section includes the information on record at [place] for the Encounter. Date/Time Encounter Type Encounter Description Reason Provider Source Nov 01, 2023 12:00 PM Outpatient Encounter PROSTHETICS/ORTHOTI KRISTINA PUCKETT Encounter Template Text not used by [place] [...] 25, 2024 03:00 PM AMBULATORY - MEDICINE [facility] Advance Directives: All historical and [...] 2021 ADVANCE DIRECTIVE DISCUSSION Jaqueline LEON [facility] Jun 12, 2014 ADVANCE DIRECTIVE DISCUSSION GÓMEZ ESPINAL [facility]
--- OUTSIDE RECORDS SUMMARY | 2024-07-23 06:10 | XMS_ITS | Encounter Summary ---
Author Name [facility] [place] [facility] [place] [facility] [place] Address [address] [place] [address] Care Team Providers Care Web Retailer Name Role Phone ABDULKADIR KRISTINA Primary Care [...] COURTNEY PLUS 1 Jul 24, 2015 [id number] [phone] PAYAM GONZALEZ [facility] PATIENT ANTHEM [place] FEP PREFERRED PROVIDER ORGANIZAT ION (PPO) FEP STAND COURTNEY PLUS 1 Jul 24, 2015 106 [id number] [phone] PAYAM GONZALEZ [facility] PATIENT [place] FEP PREFERRED PROVIDER ORGANIZAT ION (PPO) FEP STAND COURTNEY PLUS 1 Jul 24, 2015 106 [id number] [phone] PAYAM GONZALEZ [facility] PATIENT BCBS FEP RETIREE [id number] Jan 22, 2004 105 [id number] [phone] PAYAM GONZALEZ PATIENT [place] FEP PREFERRED PROVIDER ORGANIZAT ION (PPO) FEP STAND COURTNEY PLUS 1 Jul 24, 2015 106 [id number] [phone] PAYAM GONZALEZ PATIENT [place] FEP PRESCRIPT ION [id number] Jan 22, 2004 [id number] [phone] PAYAM GONZALEZ PATIENT MEDICARE (WNR) MEDICARE (M) PART A Jan 22, 2004 PART A [id number] [phone] PAYAM GONZALEZ PATIENT MEDICARE (WNR) MEDICARE (M) PART B Jan 22, 2004 PART B [id number] [phone] PAYAM GONZALEZ PATIENT MEDICARE (WNR) MEDICARE (M) PART A Jan 22, 2004 PART A [id number] PAYAM GONZALEZ PATIENT MEDICARE (WNR) MEDICARE (M) PART B Jan 22, 2004 PART B [id number] PAYAM GONZALEZ PATIENT Selected Encounter This section includes the information on record at [place] for the Encounter. Date/Time Encounter Type Encounter Description Reason Provider Source Apr 25, 2024 03:00 PM OFFICE O/P EST MOD 30 MIN PRIMARY CARE/MEDICINE ICD-10-CM I10 Essential (primary) hypertension RUDOLPH PANCHAL SE [facility] Encounter Template Text not used by [place] Assessments - Encounter Diagnoses This section includes the primary and secondary diagnoses documented for the Encounter. 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 This section includes future appointments and future orders which are active, pending or scheduled. Future Appointments This section includes appointments that were scheduled to occur 6 months from the date of the Encounter, up to a maximum of 20 appointments. The data comes from all [place] treatment facilities. Appointment Date/Time Appointment Type Appointme nt Facility Name May 28, 2024 10:30 AM AMBULATORY - MEDICINE [facility] Jun 04, 2024 10:30 AM AMBULATORY - SURGERY [facility] Jun 19, 2024 09:00 AM AMBULATORY - SURGERY [facility] Jun 21, 2024 10:00 AM AMBULATORY - [facility]ERY [facility] Jul 03, 2024 10:20 AM AMBULATORY - SURGERY [facility] Jul 15, 2024 10:00 AM AMBULATORY - SURGERY [facility] Jul 30, 2024 01:00 PM AMBULATORY - NONE [facility] Jul 31, 2024 08:30 AM AMBULATORY - NONE [facility] Oct 02, 2024 11:15 AM AMBULATORY - MEDICINE [facility] Immunizations: All administered on the encounter date This section contains immunizations associated to the Encounter. Immunization Series Date Issued Reaction Comments INFLUENZA, HIGH-DOSE, TRIVALENT, PF Apr 25 Social History: Smoking Status (Most current) and Tobacco Use (All prior to encounter date) This section includes the most current, and the historical, smoking and tobacco- related health factors from the [place] facility where the Encounter took place. Current Smoking Status This section includes the most current smoking, or tobacco-related health factor, from the [place] facility where the Encounter took place. Date/Time Current Smoking Status Comment Leonela franco Apr 27, 2023 03:00 PM VA-TOBACCO NEVER USED [facility] Tobacco Use History This section includes a history of the smoking, or tobacco-related health factors, that were collected on or before the date of the Encounter. The data comes from the [place] facility where the Encounter took place. Date/Time Smoking Status/Tobacco Use Comment F acility Mar 11, 2022 10:30 AM VA-TOBACCO NEVER USED [facility] Mar 26, 2021 03:00 PM VA-TOBACCO FORMER USER [facility] Mar 26, 2021 03:00 PM VA-TOBACCO QUIT 15 YRS OR MORE [facility] Oct 16, 2019 10:22 AM VA-TOBACCO NEVER USED [facility] Nov 13, 2017 02:35 PM VA-TOBACCO FORMER USER [facility] Nov 13, 2017 02:35 PM VA-TOBACCO QUIT 15 YRS OR MORE [facility] Oct 24, 2017 01:47 PM QUIT TOBACCO >7 YEARS AGO [facility] Advance Directives: All historical and current Section Date Range: From patient's date of to the date document was created. This section includes ALL of a patient's completed or amended [place] Advance and Rescinded Directives. The entries below indicate that a directive exists for the patient, but an actual copy is not included with this document. The data comes from all [place] facilities. Date Advance Directives Provider Source Mar 26, 2021 ADVANCE DIRECTIVE DISCUSSION Jaqueline LEON [facility] Jun 12, 2014 ADVANCE DIRECTIVE DISCUSSION GÓMEZ ESPINAL [facility] Encounter Notes: All associated encounter notes This section contains the clinical notes associated to the Encounter. Date/Time Encounter Note(s) Provider Source Apr 25, 2024 10:05 PM PRIMARY CARE NOTE: LOCAL TITLE: PRIMARY CARE PROVIDER ESTABLISHED VISIT [facility] STANDARD TITLE: PRIMARY CARE NOTE DATE OF NOTE: APR 25, 2024@22:05 ENTRY DATE: APR 29, 2024@13:05:15 AUTHOR: KRISTINA PANCHAL EXP COSIGNER: URGENCY: STATUS: COMPLETED Primary care established patient office note Chief complaint: Follow-up diabetes complicated by peripheral neuropathy, follow-up [...] and sees that MD q 3 months. He is doing well overall with chronic medical issues. He has no acute complaints today. The only issue today is that he previously followed with a dermatology in the community who has recently retired. He would like to see our dermatologists here at the [place]. He has a new skin lesion on his L arm. ROS: Negative 10 point ROS except as described above in HPI. Past History: 1) Benign essential hypertension (SNOMED CT 2872930) 2) Dyspepsia 3) Diverticulosis Colon 4) Hemorrhoids 5) Allergic Rhinitis 6) Skin Cancer 7) Benign prostatic hyperplasia 8) B12 deficiency monitoring status (SNOMED CT 586665179) 9) Incisional hernia without mention of obstruction or gangrene (ICD-9-CM 553.21) 10) Hypothyroidism 11) Impaired glucose tolerance 12) Diabetes mellitus Meds: MEDICATIONS: Active Outpatient Medications (including Supplies): Non-VA AMLODIPINE BESYLATE 5MG TAB 5MG BY [...] Alert and oriented no acute distress Skin: L arm nevus Cardiovascular: Regular rate and rhythm normal S1-S2 no murmur gallop Pulmonary: Clear to auscultation bilaterally no wheezes rhonchi Abdomen: Soft nontender nondistended bowel sounds present Extremities: No lower extremity edema A/P: Mr. 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 - continue metformin 1000 SA/empagliflozin 5 mg BID - DM shoes with inserts # b12 deficiency - continue B12 supplementation - has labs next month at OSH PCP # Hypothyroidism - continue levothyroxine 75 mcg daily # L knee OA - f/u Dr. Becker [facility] ortho for steroid inj prn # HTN Blood pressure well controlled at home. No falls. - continue lisinopril 40 mg daily - continue amlodipine 5 mg daily # AR - continue loratadine 10 mg daily # AKs scalp, rosacea - f/u derm as above # hemorrhoids - prn phenylephrine supp - psyllium # ventral wall hernia longstanding and reducible - Rx for another binder (same one) as his is years old and strectched out # GERD no sx on PPI. - continue omeprazole # HME - influenza vaccine today - declines all other vaccines RTC 6 months per pt request. Labs per Dr. Tsang (pt preference). /yesenia/ KRISTINA PANCHAL MD STAFF PHYSICIAN INTERNAL MEDICINE Signed: 04/29/2024 13:10 [facility] Apr 25, 2024 03:46 PM PHYSICIAN LETTERS: LOCAL TITLE: TEST RESULT GENERAL LETTER STL STANDARD TITLE: PHYSICIAN LETTERS DATE OF NOTE: APR 25, 2024@15:46 ENTRY DATE: APR 25, 2024@15:46:42 AUTHOR: KRISTINA PANCHAL EXP COSIGNER: URGENCY: STATUS: COMPLETED [facility] [address] [place] [id number] APR 25, 2024 To Whom It May Concern, Mr. Vaughn Gonzalez had his seasonal influenza administered at the [place] primary care clinic[facility] on 04/25/24. Thank you. Sincerely, KRISTINA PANCHAL MD STAFF PHYSICIAN INTERNAL MEDICINE [facility] Apr 25, 2024 03:06 PM NURSING NOTE: LOCAL TITLE: V15 PACT FACE TO FACE NOTE STL STANDARD TITLE: NURSING NOTE DATE OF NOTE: APR 25, 2024@15:06 ENTRY DATE: APR 25, 2024@15:06:22 AUTHOR: BUCK,KATTY A EXP COSIGNER: URGENCY: STATUS: COMPLETED V15 PACT FACE TO FACE NOTE STL Has ADDENDA Provider Visit: Patient Identifiers : Full Name Date of Reason for visit: Established Follow-Up Mode of Arrival: Ambulatory Allergy Review: Patient has answered NKA Allergy list reviewed and remains current. Recent Vital Signs: Temperature: 97.8 F [36.6 C] (04/25/2024 15:04) Pulse: 70 (04/25/2024 15:04) Respiration: 16 (04/25/2024 15:04) B/P: 134/67 (04/25/2024 15:04) Pain: 4 (04/25/2024 15:04) Wt: 172 lb [78.02 kg] (04/25/2024:) Ht: 64 in [162.6 cm] (03/19/2019 14:34) BMI: 29.6 POX: 97% (04/25/2024 15:) Would you like to discuss any personal problem, family problem, alcohol use, drug use, or a mental or emotional illness? No [facility] ([facility]), please select appointment type: Face to face: Yes- Done Contact provided Primary Care phone number and encouraged to call if any questions or concerns. Review that after hours nurse line [phone] and emergency room are available 13/02 for patient use. Contact verbalized good understanding. No notification required for this note. COVID-19 Immunization: Refused Pfizer Monovalent COVID-19 vaccine Immunization: COVID-19 (PFIZER), MRNA, LNP-S, PF, KAYCE-SUCROSE, 30 MCG/0.3 ML (AGES 12+ YEARS) Refusal Reason: Cancel Series and stop forecasting: Yes Patient refuses all immunization(s) in the COVID-19 group Date Documented: 04/25/24 15:08 Tobacco Use Screening: The patient is a former tobacco user. The patient quit fifteen or more years ago. Depression Screening: Perform PHQ-2 A PHQ-2 screen was performed. The score was 0 which is a negative screen for depression. Over the past two weeks, how often have you been bothered by the following problems? 1. Little interest or pleasure in doing things Not at all 2. Feeling down, depressed, or hopeless Not at all Alcohol Use Screen (AUDIT-C): Alcohol Screen: SCREEN FOR ALCOHOL (AUDIT-C) An alcohol screening test (AUDIT-C) was negative (score=0). 1. How often did you have a drink containing alcohol in the past year? Consider a drink to be a 12 ounce can or bottle of regular beer, 8 ounces of malt liquor, a 5 ounce glass of table wine, or a 1.5 ounce shot of liquor (like scotch, gin, or vodka). Never 2. How many drinks containing alcohol did you have on a typical day when you were drinking in the past year? Response not required due to responses to other questions. 3. How often did you have six or more drinks on one occasion in the past year? Response not required due to responses to other questions. Frail/Elderly Screen: ADL Screen - [place]ina Index of [place] in Activities of Daily Living Bathing: (3 Points) Receives no assistance (gets in and out of tub by self, if tub is usual means of bathing) Dressing: (3 Points) Gets clothes and gets completely dressed without assistance. Toileting: (3 Points) Goes to toilet room , cleans self, and arranges clothes without assistance (may use object for support such as cane, walker, or wheelchair, and may manage own night bedpan or commode, emptying same next morning) Transferring: (3 Points) Moves in and out of bed and in and out of chair without assistance (may be using object for support, such as cane or walker) Continence: (3 Points) Controls urination and bowel movement completely by self Feeding: (3 Points) Feeds self without assistance Total Score: 18 Points 18 = High (patient independent) 6 = Low (patient very dependent) IADL Screen - [place] Instrumental Activities of Daily Living Scale Ability to use telephone: (1 point) Operates Telephone on own initiative; looks up and dials numbers. Shopping: (1 point) Takes care of all shopping needs independently. Food preparation: (1 point) Plans, prepares, and serves adequate meals independently. Housekeeping: (1 point) Maintains house alone with occasional assistance (heavy work). Laundry: (1 point) Does personal laundry completely. Mode of transportation: (1 point) Travels independently on public transportation or drives own car. Responsibility for own medications: (1 point) Is responsible for taking medications in correct dosages at correct times. Ability to handle finances: (1 point) Manages financial matters independently (budgets, writes checks, pays rent and bills, goes to bank); collects and keeps track of income. Total score: 8 points 8 = High function, independent 0 = Low function, dependent Falls Screen: No falls within the past 12 months. Incontinence Screen No incontinence. Suicide Screen: C-SSRS Screening [place]-Suicide Severity Rating Scale (C-SSRS Screener) 1. Over the past month, have you wished you were or wished you could go to sleep and not wake up? No 2. Over the past month, have you had any actual thoughts of killing yourself? No 3. Over the past month, have you been thinking about how you might do this? Response not required due to responses to other questions. 4. Over the past month, have you had these thoughts and had some intention of acting on them? Response not required due to responses to other questions. 5. Over the past month, have you started to work out or worked out the details of how to kill yourself? Response not required due to responses to other questions. 6. If yes, at any time in the past month did you intend to carry out this plan? Response not required due to responses to other questions. 7. In your lifetime, have you ever done anything, started to do anything, or prepared to do anything to end your life (for example, collected pills, obtained a gun, gave away valuables, went to the roof but didn't jump)? No 8. If YES, was this within the past 3 months? Response not required due to responses to other questions. Sexual Orientation: The patient thinks of their sexual orientation as: Straight or Heterosexual [facility] - [facility] MAP: PERSONAL HEALTH PLAN INVENTORY & MAP [place] Response: health and Influenza Immunization: Influenza, High-Dose, Trivalent, Preservative Free (Fluzone-Syringe) Administered: INFLUENZA, HIGH-DOSE, TRIVALENT, PF Date Administered: Apr 25, 2024 15:00 Combo Welder: SANOFI PASTEUR Lot: [id number] Exp Date: Jan 20, 2025 [facility]: [phone] Admin Route/Site: INTRAMUSCULAR/LEFT DELTOID Dosage: 0.5mL Vaccine Information Statement(s): INFLUENZA(FLU) VACC(INACTIVATED OR RECOMBINANT)VIS Feb 26, 2021 (CROATIAN) Order By: Policy Administered By: Katty Loo The Influenza Vaccine Information Statement (VIS) was reviewed with the patient/caregiver which lists the benefits and risks of the vaccine and the risks of not receiving the Influenza vaccine. The patient/caregiver denied any prior severe reaction to this vaccine or its components or a severe allergic reaction, such as anaphylaxis, to any vaccine or any injectable therapy. The patient/caregiver gave verbal consent to receive the vaccine. /joss LOO LICENSED PRACTICAL NURSE Signed: 04/25/2024 15:17 04/25/2024 ADDENDUM STATUS: COMPLETED COVID-19 Immunization: Refused Pfizer Monovalent COVID-19 vaccine Immunization: COVID-19 (PFIZER), MRNA, LNP-S, PF, KAYCE-SUCROSE, 30 MCG/0.3 ML (AGES 12+ YEARS) Refusal Reason: Cancel Series and stop forecasting: Yes Patient refuses all immunization(s) in the COVID-19 group Date Documented: 04/25/24 15:53 Herpes Zoster (Shingles) Vaccine: The patient declines to receive the recommended dose of zoster (shingles) vaccine. Immunization: ZOSTER RECOMBINANT Refusal Reason: Cancel Series and stop forecasting: Yes Patient refuses all immunization(s) in the ZOSTER group Date Documented: 04/25/24 15:53 Tdap Immunization: The patient declines to receive the recommended dose of Tdap vaccine. Immunization: TDAP Refusal Reason: Cancel Series and stop forecasting: Yes Patient refuses all immunization(s) in the TDAP group Date Documented: 04/25/24 15:53 /joss LOO LICENSED PRACTICAL NURSE Signed: 04/25/2024 15:54 KATTY LOO [facility]
--- OUTSIDE RECORDS SUMMARY | 2024-07-23 06:10 | XMS_ITS | Encounter Summary ---
Author Name [facility] [place] Organization [facility] [place] [facility] [place] Address [address] [place] [address] Care Team Providers Care Mail Censor Name Role Phone KRISTINA PANCHAL Primary Care [...] COURTNEY PLUS 1 Jul 24, 2015 106 [id number] [phone] PAYAM ZHENG PATIENT ANTHEM [employer] FEP PREFERRED PROVIDER ORGANIZAT ION (PPO) FEP STAND COURTNEY PLUS 1 Jul 24, 2015 106 [id number] [phone] PAYAM ZHENG PATIENT ANTHEM [place] F[place] PREFERRED PROVIDER ORGANIZAT ION (PPO) FEP STAND COURTNEY PLUS 1 Jul 24, 2015 106 [id number] [phone] PAYAM ZHENG PATIENT BCBS FEP RETIREE [id number] Jan 22, 2004 105 [id number] PAYAM ZHENG PATIENT [place] F[place] PREFERRED PROVIDER ORGANIZAT ION (PPO) FEP STAND COURTNEY PLUS 1 Jul 24, 2015 106 [id number] [phone] PAYAM ZHENG PATIENT [place] FEP PRESCRIPT ION [id number] Jan 22, 2004 [id number] PAYAM ZHENG PATIENT MEDICARE (WNR) MEDICARE (M) PART A Jan 22, 2004 PART A [id number] PAYAM ZHENG PATIENT MEDICARE (WNR) MEDICARE (M) PART B Jan 22, 2004 PART B [id number] PAYAM ZHENG PATIENT MEDICARE (WNR) MEDICARE (M) PART A Jan 22, 2004 PART A [id number] PAYAM ZHENG PATIENT MEDICARE (WNR) MEDICARE (M) PART B Jan 22, 2004 PART B [id number] PAYAM ZHENG PATIENT Selected Encounter This section includes the information on record at [place] for the Encounter. Date/Time Encounter Type Encounter Description Reason Provider Source Aug 18, 2023 08:30 AM THERAPEUTIC EXERCISES RECREATION THERAPY SERVICE ICD-10-CM R54 Age-related physical debility JEAN CHAVARRIA Gerardo Encounter Template Text not used by [place] Assessments - Encounter Diagnoses This section includes the primary and secondary diagnoses documented for the Encounter. Date/Time Primary/Secondary Diagnosis Diagnosis Name Provider Source Aug 18, 2023 09:15 AM PRIMARY Age-related physical debility JEAN CHAVARRIA [facility] Plan of Treatment: Future Appointments (+ 6 months) and Future Tests (+/- 45 days) The Plan of Treatment section includes future care activities for the patient from all [place] treatmentfacilities. This section includes future appointments and future orders which are active, pending or scheduled. Future Appointments This section includes appointments that were scheduled to occur 6 months from the date of the Encounter, up to a maximum of 20 appointments. The data comes from all [place] treatment facilities. Appointment Date/Time Appointment Type Appointme nt Facility Name Sep 26, 2023 10:00 AM AMBULATORY - MEDICINE [facility] Oct 09, 2023 11:00 AM AMBULATORY - NONE [facility] Active, Pending, and Scheduled Orders This section includes a listing of several types of active, pending, and scheduled orders, including clinic medications orders, diagnostic test orders, procedure orders and consult orders; where the start date of the order is 45 days before the date of the Encounter or 45 days after the date of theEncounter. The data comes from all [place] treatment facilities. Test Date/Time Test Type Test Details Facility Name Jul 11, 2023 12:00 AM Laboratory - Chemi stry Order MICRAL/CREAT PROFILE (STL) URINE SP [facility] Advance Directives: All historical and current Section Date Range: From patient's date of to the date document was created. This section includes ALL of a patient's completed or amended [place] Advance and Rescinded Directives. The entries below indicate that a directive exists for the patient, but an actual copy is not included with this document. The data comes from all [facility]. Date Advance Directives Provider Source Mar 26, 2021 ADVANCE DIRECTIVE DISCUSSION Jaqueline [facility]ON [facility] Jun 12, 2014 ADVANCE DIRECTIVE DISCUSSION GÓMEZ ESPINAL [facility] Encounter Notes: All associated encounter notes This section contains the clinical notes associated to the Encounter. Date/Time Encounter Note(s) Provider Source Aug 18, 2023 09:17 AM ADDENDUM: LOCAL TITLE: Addendum STANDARD TITLE: ADDENDUM DATE OF NOTE: AUG 18, 2023@09:17:01 ENTRY DATE: AUG 18, 2023@09:17:03 AUTHOR: JEAN CHAVARRIA EXP COSIGNER: URGENCY: STATUS: COMPLETED PLEASE ENTER NEW CONSULT: RT PERSONAL EXERCISE. This consult will be good for 1 year and allow to use [facility] facilities. /yesenia/ MICHAEL Bae Recreation Therapist Signed: 08/18/2023 09:17 Receipt Acknowledged By: 08/25/2023 12:48 /yesenia/ KRISTINA PANCHAL MD STAFF PHYSICIAN INTERNAL MEDICINE --- Original Document --- 08/18/23 RT OPT EXERCISE AQUATIC CLINIC PROGRESS STL: Recreation Therapy Exercise Clinic Progress Note: Referring [...] Machines Used: educated and trained on all [employer] equipment on this date: Rotary Torso Abdominal [...] Timeframe: First Visit - goal met 08/03/23 Nursing Home Goal: Patient will be able to self-direct land based/aquatic exercise. Patient will be able to document their own exercise progress Timeframe: Last Visit - goal met 08/18/23 PLAN: 1. Attend Exercise orientation 2. Report [...] aerobic exercise and strength training (if appropriate). DC PLAN Pt. has met all of their defined goals. Renick is now being transferred to Phase 3. This is a self-directed exercise program in which has access to the gym/pool whenever it is open. spoke with therapist today and was agreeable to this. feels as if they have progressed nicely through the program. can still consult with recreation therapist if needed. Vet would like to come back and use the gym/pool at . Renick was also given education and community resources that can be utilized if vet wishes to pursue use of another recreation or rehab facility. PLEASE ENTER NEW CONSULT: RT PERSONAL EXERCISE. This consult will be good for 1 year and allow Renick to use [facility] facilities. [place] plan is being terminated as vet is being DC'd from active [place]. /yesenia/ MICHAEL Bae Recreation Therapist Signed: 08/18/2023 09:16 JEAN CHAVARRIA [facility] Aug 18, 2023 09:15 AM RECREATIONAL THERA PY NOTE: LOCAL TITLE: RT OPT EXERCISE AQUATIC CLINIC PROGRESS ST STANDARD TITLE: RECREATIONAL THERAPY NOTE DATE OF NOTE: AUG 18, 2023@09:15 ENTRY DATE: AUG 18, 2023@09:15:12 AUTHOR: JEAN CHAVARRIA EXP COSIGNER: URGENCY: STATUS: COMPLETED RT OPT EXERCISE AQUATIC CLINIC PROGRESS STL Has ADDENDA Recreation Therapy Exercise Clinic Progress Note: Referring [...] Bike:NuStep, 20 min Treadmill: Elliptical: Weight Machines Used:Renick educated and trained on all [employer] equipment on this date: Rotary Torso Abdominal [...] Timeframe: First Visit - goal met 08/03/23 Nursing Home Goal: Patient will be able to self-direct land based/aquatic exercise. Patient will be able to document their own exercise progress Timeframe: Last Visit - goal met 08/18/23 PLAN: 1. Attend Exercise orientation 2. Report [...] aerobic exercise and strength training (if appropriate). DC PLAN Pt. has met all of their defined goals. is now being transferred to Phase 3. This is a self-directed exercise program in which has access to the gym/pool whenever it is open. Renick spoke with therapist today and was agreeable to this. Renick feels as if they have progressed nicely through the program. Renick can still consult with recreation therapist if needed. Vet would like to come back and use the gym/pool at . was also given education and community resources that can be utilized if vet wishes to pursue use of another recreation or rehab facility. PLEASE ENTER NEW CONSULT: RT PERSONAL EXERCISE. This consult will be good for 1 year and allow to use [facility] facilities. [place] plan is being terminated as vet is being DC'd from active [place]. /MICHAEL Crespo Recreation Therapist Signed: 08/18/2023 09:16 08/18/2023 ADDENDUM STATUS: COMPLETED PLEASE ENTER NEW CONSULT: RT PERSONAL EXERCISE. This consult will be good for 1 year and allow to use [facility] facilities. /MICHAEL Crespo Recreation Therapist Signed: 08/18/2023 09:17 Receipt Acknowledged By: * AWAITING SIGNATURE * KRISTINA PANCHAL AMY M [facility]
--- OUTSIDE RECORDS SUMMARY | 2024-07-23 06:10 | XMS_ITS | Encounter Summary ---
Author Name [facility] [place] [facility] [place] [facility] [place] Address [address] [place] [address] Care Team Providers Care Top Collar Maker Name Role Phone ROBERTO PANCHALELIESE Primary Care Provider Unavailab JANKI Lara Unavailable [...] COURTNEY PLUS 1 Jul 24, 2015 106 [id number] [phone] PAYAM ZHENG PATIENT ANTHE[place] FEP PREFERRED PROVIDER ORGANIZAT ION (PPO) FEP STAND COURTNEY PLUS 1 Jul 24, 2015 106 [id number] [phone] PAYAM ZHENG PATIENT [place] PREFERRED PROVIDER ORGANIZAT ION (PPO) FEP STAND COURTNEY PLUS 1 Jul 24, 2015 106 [id number] [phone] PAYAM ZHENG PATIENT [employer] FEP RETIREE [id number] Jan 22, 2004 105 [id number] PAYAM ZHENG PATIENT [place] F[place] PREFERRED PROVIDER ORGANIZAT ION (PPO) FEP STAND COURTNEY PLUS 1 Jul 24, 2015 106 [id number] [phone] PAYAM ZHENG PATIENT [employer] FEP PRESCRIPT ION [id number] Jan 22, 2004 [id number] PAYAM ZHENG PATIENT MEDICARE (WNR) MEDICARE (M) PART A Jan 22, 2004 PART A [id number] PAYAM ZHENG PATIENT MEDICARE (WNR) MEDICARE (M) PART B Jan 22, 2004 PART B [id number] PAYAM ZHENG PATIENT MEDICARE (WNR) MEDICARE (M) PART A Jan 22, 2004 PART A [id number] PAYAM ZHENG PATIENT MEDICARE (WNR) MEDICARE (M) PART B Jan 22, 2004 PART B [id number] [phone] PAYAM ZHENG PATIENT Selected Encounter This section includes the information on record at [place] for the Encounter. Date/Time Encounter Type Encounter Description Reason Provider Source May 28, 2024 10:30 AM OFFICE O/P NEW MOD 45 MIN DERMATOLOGY ICD-10-CM L57.0 Actinic keratosis ALEX GARDNER [facility] Encounter Template Text not used by [place] Assessments - Encounter Diagnoses This section includes the primary and secondary diagnoses documented for the Encounter. Date/Time Primary/Secondary Diagnosis Diagnosis Name Provider Source May 28, 2024 11:24 AM PRIMARY Actinic keratosis ALEX GARDNER [facility] May 28, 2024 11:24 AM SECONDARY Encounter for screening for malignant neoplasm of skin ALEX GARDNER [facility] May 28, 2024 11:24 AM SECONDARY Melanocytic nevi, unspecified ALEX GARDNER [facility] May 28, 2024 11:24 AM SECONDARY Neoplasm of uncertain behavior of skin ALEX GARDNER [facility] May 28, 2024 11:24 AM SECONDARY Other seborrheic keratosis ALEX GARDNER [facility] May 28, 2024 11:24 AM SECONDARY Personal history of other malignant neoplasm of skin ALEX GARDNER [facility] Plan of Treatment: Future Appointments (+ 6 months) and Future Tests (+/- 45 days) The Plan of Treatment section includes [facility] care [facility] the [facility] [place] [facility] This section includes future appointments and future orders which are active, pending or scheduled. Future Appointments This section includes appointments that were scheduled to occur 6 months from the date of the Encounter, up to a maximum of 20 appointments. The data comes from all [place] treatment facilities. Appointment Date/Time Appointment Type Appointme nt Facility Name Jun 04, 2024 10:30 AM AMBULATORY - SURGERY [facility] Jun 19, 2024 09:00 AM AMBULATORY - SURGERY [facility] Jun 21, 2024 10:00 AM AMBULATORY - SURGERY [facility] Jul 03, 2024 10:20 AM AMBULATORY - SURGERY [facility] Jul 15, 2024 10:00 AM AMBULATORY - SURGERY [facility] Jul 30, 2024 01:00 PM AMBULATORY - NONE [facility] Jul 31, 2024 08:30 AM AMBULATORY - NONE [facility] Oct 02, 2024 11:15 AM AMBULATORY - MEDICINE [facility] November 25, 2024 10:45 AM AMBULATORY - MEDICINE [facility] Advance Directives: All historical and current Section Date Range: From patient's date of to the date document was created. This section includes ALL of a patient's completed or amended [place] Advance and Rescinded Directives. The entries below indicate that a directive exists for the patient, but an actual copy is not included with this document. The data comes from all [facility]. Date Advance Directives Provider Source Mar 26, 2021 ADVANCE DIRECTIVE DISCUSSION Jaqueline [facility] Jun 12, 2014 ADVANCE DIRECTIVE DISCUSSION GÓMEZ ESPINAL [facility] Pathology Reports: +/- 30 days of the [...] the Encounter. The data comes from all [place] treatment facilities. Date/Time Pathology Report Provider Source [...] crust scale. The cells stain positive for [place]-1/Melan-A and SOX10 while they are negative for [...] Performing Laboratory: Surgical Pathology Report Performed By: [address]# [id number] [address] [place] [phone] $FTR - - - - - - [...] - - VAUGHN ZHENG STANDARD FORM 515 ID:[id number] SEX:M :1940 AGE: 84 LOC:DERMCON PCP: Kristina Panchal MD /joss HOUSTON MD DERMATOLOGY & DERMATOPATHOLOGY Signed: 06/07/2024 12:01 [facility] Encounter Notes: All associated encounter notes This section contains the clinical notes associated to the Encounter. Date/Time Encounter Note(s) Provider Source Jun 07, 2024 01:07 PM INTERNAL MEDICINE NOTE: LOCAL TITLE: BIOPSY FOLLOW UP STL STANDARD TITLE: INTERNAL MEDICINE NOTE DATE OF NOTE: JUN 07, 2024@13:07 ENTRY DATE: JUN 07, 2024@13:07:43 AUTHOR: ANNA DAVIS EXP COSIGNER: BERNIE HOUSTON URGENCY: STATUS: COMPLETED Communicated biopsy results with patient on: May Communicated results via: Phone Results/Diagnosis: DIAGNOSIS: SKIN, LEFT FOREARM, SHAVE BIOPSY - MALIGNANT MELANOMA, NODULAR TYPE WITH SPINDLE CELL FEATURES (SEE MICROSCOPIC DESCRIPTION/COMMENT) - PROVISIONAL [place] THICKNESS 1.5 MM - DEFINITIVE EPIDERMAL ULCERATION NOT OBSERVED - HIGH DERMAL MELANOMA MITOTIC RATE Positive Cancer Diagnosis: YES Treatment Plan: Spoke with patient via phone regarding biopsy results. Discussed the risk associated with melanoma including metastasis and rarely . Given lesion size, location, diagnosis will refer to general surgery for WLE w/SNLB. Referral sent /yesenia/ ANNA DAVIS Dermatology resident Signed: 06/07/2024 13:11 /yesenia/ BERNIE HOUSTON MD DERMATOLOGY & DERMATOPATHOLOGY Cosigned: 06/07/2024 13:16 Receipt Acknowledged By: 06/11/2024 09:27 /yesenia/ ALEX GARDNER MD Dermatology Attending Physician ANNA DAVIS [facility] May 28, 2024 10:47 AM DERMATOLOGY CONSUL T: LOCAL TITLE: DERMATOLOGY CONSULT STL STANDARD TITLE: DERMATOLOGY CONSULT DATE OF NOTE: MAY 28, 2024@10:47 ENTRY DATE: MAY 28, 2024@10:48:11 AUTHOR: MEG SCRUGGS EXP COSIGNER: ALEX GARDNER URGENCY: STATUS: COMPLETED DERMATOLOGY CONSULT STL Has ADDENDA DERM CONSULT NOTE VAUGHN ZHENG is a 84 year MALE with history of skin cancer in 2020 and presenting for CONSULTATION OF: h/o aKs; needs yearly skin exam. outside derm retired. 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 - scaly spots on arms - Uses metro cream for rosacea - uses cerave cream for moisturizer - uses tacrolimus for rash in groin Skin Cancer Hx: - NMSC left frontal scalp s/p MMS -2020 - NMSC behind right ear >20 years ago Allergies: Patient has answered NKA ROS: all systems reviewed and were negative except as noted in the HPI OBJECTIVE Physical Examination - [place] erythematous patch with overlying scaly papule colliding with brown/purple papule - Scattered brown well circumscribed macules on trunk/extremities - Scattered brown keratotic stuck on appearing papules on the trunk, b/l upper extremities - Scaly pink papules on bilateral forearms, scalp, left forearm, right helix otherwise: General Appearance: Well Appearing MALE, NAD Mood/Affect: pleasant/appropriate Face: WNL Ears: WNL Nose: WNL Forehead: WNL Scalp, Hair: no scale Neck: WNL Chest: WNL Abd: WNL Back: WNL Upper Extremities: WNL Lower Extremities: WNL Nails/Hair: WNL ASSESSMENT AND PLAN # Neoplasm Location: Left forearm DDx: Melanoma vs BCC vs AK + Tobar angioma Shave biopsy per Procedure section below Well tolerated # Actinic keratoses - LN2 x 7 sec x 4 lesions on right ear, left forearm, left frontal scalp - Start 5-fluorouracil (Efudex) 5% cream BID x2 weeks to scalp and ears then bilateral forearms; SER including redness, irritation, and photosensitivity - Blister care and photoprotection # Seborrheic keratoses # Tobar angiomas Benign, reassurance # Nevi, benign ABCDEs reviewed Monthly self skin examinations Yearly MD full body skin examination Photoprotection -No additional lesions suspicious for skin cancer on areas examined. PROCEDURE: Shave Biopsy x 1 DESCRIPTION OF PROCEDURE: Informed consent was obtained, including discussion of risks including bleeding, scarring, infection, and recurrence/persistence. Fords Protocol Time-Out performed. The lesionals areas were prepped with alcohol prior to infiltration with 1% lidocaine with epinephrine, 1:100,000 x 2.5 ml. The lesions were biopsied with a Dermablade. Hemostasis was obtained with aluminum chloride and firm pressure. The specimen(s) were placed in formalin and sent for routine histopathological evaluation. There were no complications. The wounds were then dressed with petrolatum and a sterile dressing. Wound care instructions were provided in verbal and written form. The patient will be notified of results. Pt phone: RTC in 6 months or per joel /yesenia/ MEG SCRUGGS III DERMATOLOGY RESIDENT Signed: 05/28/2024 11:24 /yesenia/ ALEX GARDNER MD Dermatology Attending Physician Cosigned: 05/28/2024 11:27 05/28/2024 ADDENDUM STATUS: COMPLETED I interviewed and examined the patient and discussed the case with the resident. I was immediately available during entire visit and any procedure(s). I agree with documented history, physical examination, assessment and plan. /yesenia/ ALEX GARDNER MD Dermatology Attending Physician Signed: 05/28/2024 11:27 MEG SCRUGGS [facility]
--- OUTSIDE RECORDS SUMMARY | 2024-07-23 06:10 | XMS_ITS ---
Author Name [facility] [place] Address [address] [place] [address] Care Team Providers Care Education Reviewer Name Role Phone KRISTINA PANCHAL Primary Care [...] COURTNEY PLUS 1 Jul 24, 2015 106 [id number] [phone] PAYAM ZHENG PATIENT ANTHEM [place] FEP PREFERRED PROVIDER ORGANIZAT ION (PPO) FEP STAND COURTNEY PLUS 1 Jul 24, 2015 106 [id number] [phone] [place]AM ZHENG [facility] [place] PREFERRED PROVIDER ORGANIZAT ION (PPO) FEP STAND COURTNEY PLUS 1 Jul 24, 2015 106 [id number] [phone] PAYAM ZHENG [facility] [place] FEP RETIREE [id number] Jan 22, 2004 [id number] PAYAM ZHENG PATIENT [place] FEP PREFERRED PROVIDER ORGANIZAT ION (PPO) FEP STAND COURTNEY PLUS 1 Jul 24, 2015 106 [id number] [phone] PAYAM ZHENG PATIENT [place] FEP PRESCRIPT ION [id number] Jan 22, 2004 [id number] PAYAM ZHENG PATIENT MEDICARE (WNR) MEDICARE (M) PART A Jan 22, 2004 PART A [id number] [phone] PAYAM ZHENG PATIENT MEDICARE (WNR) MEDICARE (M) PART B Jan 22, 2004 PART B [id number] PAYAM ZHENG PATIENT MEDICARE (WNR) MEDICARE (M) PART A Jan 22, 2004 PART A [id number] [phone] PAYAM ZHENG PATIENT MEDICARE (WNR) MEDICARE (M) PART B Jan 22, 2004 PART B [id number] PAYAM ZHENG PATIENT Selected Encounter This section includes the information on record at [place] for the Encounter. Date/Time Encounter Type Encounter Description Reason Provider Source Oct 09, 2023 11:00 AM G COM STCKING BK 18-30 CUSTM PROSTHETICS/ORTHO TICS ICD-10-CM Z46.89 Encounter for fitting and adjustment of oth devices RECORD,REGINA OSWALD Encounter Template Text not used by [place] Assessments - Encounter Diagnoses This section includes the primary and secondary diagnoses documented for the Encounter. Date/Time Primary/Secondary Diagnosis Diagnosis Name Provider Source Oct 09, 2023 10:18 AM PRIMARY Encounter for fitting and adjustment of oth devices HANDY,REGINA [facility] Lab Results: +/- 30 days of the encounter This section includes the Chemistry and Hematology Lab Results on record with [place] for the patient. Radiology Reports and Pathology Reports are provided separately, in subsequent sections. Lab Results This section contains the Chemistry/Hematology Results that were resulted 30 days before or 30 daysafter the date of the Encounter. Date/Time Source Result Type Result - Unit Interpretation Reference Range Comment Sep 26, 2023 11:30 AM [facility] PROTEIN ELECTROPHORESIS BLOOD Specimen Type: SERUM Comment: No M Leandro detected. Reference Range: None Detected Normal Serum Protein Electrophoresis Pattern. No abnormal protein bands (M-protein) detected. Test Performed by [facility], [employer] [facility], [address] [place], [place] Alfred Aly M.D., Ph.D., Director of Laboratories , CLIA [id number] Ordering Provider: KRISTINA PANCHAL Report Released Date/Time: Sep 26, 2023 10:20 AM Reporting Lab: [facility] [address] [facility] [address] Performing Lab: [facility] [address] [facility] ALPHA-1 GLOBULIN(SO-PB-S TL) 0.3 g/dL 0.2-0.3 ALPHA-2 GLOBULIN(SO-PB-S TL) 0.8 g/dL 0.5-0.9 BETA 1 GLOBULIN(SO-PB-S TL) 0.5 g/dL 0.4-0.6 GAMMA GLOBULIN (SO-PB-STL) 0.9 g/dL 0.8-1.7 TOTAL PROTEIN (SO-PB-STL) 6.8 g/dL 6.1-8.1 ALBUMIN(ELECTROP HORESIS 3.8 g/dL 3.8-4.8 BETA 2 GLOBULIN (SO-PB) 0.4 g/dL 0.2-0.5 INTERPRETATION (STL-PB) SEE NOTE ABNORMAL PROTEIN BAND 1 (SO-PB-STL) SEE NOTE Sep 26, 2023 11:30 AM [facility] HGA1C Specimen Type: BLOOD No comment entered. Ordering Provider: KRISTINA PANCHAL Report Released Date/Time: Sep 26, 2023 10:20 AM Reporting Lab: [facility] [address] [facility] [address] Performing Lab: [address] [address] HGA1C 7.4 H 4.0-6.0 Sep 26, 2023 11:30 AM [facility] COMPREHENSIVE METABOLIC PANEL Specimen Type: PLASMA Comment: No hemolysis noted. Ordering Provider: KRISTINA PANCHAL Report Released Date/Time: Sep 26, 2023 10:20 AM Reporting Lab: [facility] [address] [facility] [address] Performing Lab: [facility] [address] [facility] [address] CREATININE 1.21 mg/dL 0.7-1.3 UREA NITROGEN 16.4 [...] 59.0 >60 Sep 26, 2023 11:30 AM [facility] LIPID PANEL (STL) Specimen Type: PLASMA Comment: No hemolysis noted. Ordering Provider: KRISTINA PANCHAL Report Released Date/Time: Sep 26, 2023 10:20 AM Reporting Lab: [facility] [address] [facility] [address] Performing Lab: [address] [address] CHOLESTEROL 154 mg/dL 0-200 TRIGLYCERIDE 209 mg/dL H 0-150 CALCULATED LDL 69 mg/dL HDL(New) 43 mg/dL >40 Sep 26, 2023 11:30 AM [facility] B12 Specimen Type: SERUM No comment entered. Ordering Provider: KRISTINA PANCHAL Report Released Date/Time: Sep 26, 2023 10:20 AM Reporting Lab: [facility] [address] [facility] [address] Performing Lab: [facility] [address] [place] [address] B12 724 pg/mL [phone] Sep 26, 2023 11:30 AM [facility] MICRAL/CREAT PROFILE (STL) Specimen Type: URINE No comment entered. Ordering Provider: KRISTINA PANCHAL Report Released Date/Time: Sep 26, 2023 10:20 AM Reporting Lab: [facility] [address] [place] [phone] Performing Lab: [address] [address] URINE ALBUMIN (PB-STL) 27.5 mg/L uACR (STL) 55 mg/g H 0-29 CREATININE URINE/OTHERS 50.4 mg/dL L 63-166 Sep 26, 2023 11:30 AM [facility] CBC Specimen Type: BLOOD No comment entered. Ordering Provider: KRISTINA PANCHAL Report Released Date/Time: Sep 26, 2023 10:20 AM Reporting Lab: [facility] [address] Performing Lab: [address] [address] WBC 5.7 10*3/uL 3.6-11.2 RBC 3.68 10*6/uL [...] 10*3/uL 0.00-0.20 Sep 26, 2023 09:55 AM [facility] GLUCOSE,BLOOD-poct (STL) Specimen Type: BLOOD Comment: Test Performed by: [id number] Meter #: [id number] Ordering Provider: KRISTINA PANCHAL Report Released Date/Time: Sep 26, 2023 03:59 PM Reporting Lab: [facility] [address] [facility] [address] Performing Lab: [facility] [address] [facility] [address] GLUCOSE,BLOOD-po ct (STL) 181 mg/dL H 72-99 [...] 26, 2021 ADVANCE DIRECTIVE DISCUSSION Jaqueline LEON [facility] Jun 12, 2014 ADVANCE DIRECTIVE DISCUSSION GÓMEZ ESPINAL [facility] Encounter Notes: All associated encounter notes This section contains the clinical notes associated to the Encounter. Date/Time Encounter Note(s) Provider Source Oct 09, 2023 10:15 AM ORTHOTICS PROSTHET ICS CONSULT: LOCAL TITLE: PROSTHETICS CONSULT [facility] STANDARD TITLE: ORTHOTICS PROSTHETICS CONSULT DATE OF NOTE: OCT 09, 2023@10:15 ENTRY DATE: OCT 09, 2023@10:15:48 AUTHOR: REGINA MURRELL EXP COSIGNER: URGENCY: STATUS: COMPLETED S: Pt. was seen for compression hose as a walk in. Measurements were taken and size Medium black were provided. O: Pt. was fit with 3 pr. black using a small donning chow. Pt. was instructed on how to don and care for the stockings. A: Pt. verbalized understanding of instructions provided. Written insructions were sent with the pt. P: PT. will call with any other needs. Time: 15 min Goal: compression to reduce edema. /yesenia/ REGINA MURRELL [employer] Designer Signed: 10/09/2023 10:19 REGINA MURRELL [facility]
--- OUTSIDE RECORDS SUMMARY | 2024-07-23 06:10 | XMS_ITS ---
Author Name [facility] [place] Address [address] [place] [address] Care Team Providers Care Tribal Council Member Name Role Phone KRISTINA PANCHAL Primary Care [...] COURTNEY PLUS 1 Jul 24, 2015 106 [id number] [phone] PAYAM ZHENG [facility] [place]IENT [place] FEP PREFERRED PROVIDER ORGANIZAT ION (PPO) FEP STAND COURTNEY PLUS 1 Jul 24, 2015 106 [id number] [phone] PAYAM ZHENG [facility] PATIENT [place] PREFERRED PROVIDER ORGANIZAT ION (PPO) FEP STAND COURTNEY PLUS 1 Jul 24, 2015 106 [id number] [phone] PAYAM ZHENG [facility] PATIENT BCBS FEP RETIREE [id number] Jan 22, 2004 [id number] PAYAM ZHENG PATIENT [place] FEP PREFERRED PROVIDER ORGANIZAT ION (PPO) FEP STAND COURTNEY PLUS 1 Jul 24, 2015 106 [id number] [phone] PAYAM ZHENG PATIENT [place] FEP PRESCRIPT ION [id number] Jan 22, 2004 [id number] PAYAM ZHENG PATIENT MEDICARE (WNR) MEDICARE (M) PART A Jan 22, 2004 PART A [id number] PAYAM ZHENG PATIENT MEDICARE (WNR) MEDICARE (M) PART B Jan 22, 2004 PART B [id number] PAYAM ZHENG PATIENT MEDICARE (WNR) MEDICARE (M) PART A Jan 22, 2004 PART A [id number] PAYAM ZHENG PATIENT MEDICARE (WNR) MEDICARE (M) PART B Jan 22, 2004 PART B [id number] [phone] PAYAM ZHENG PATIENT Selected Encounter This section includes the information on record at [place] for the Encounter. Date/Time Encounter Type Encounter Description Reason Provider Source Aug 28, 2023 01:00 PM [facility] RE[facility] THERAPY SERVICE ICD-10-CM I10 Essential (primary) hypertension VIDYA CHAVARRIA Encounter Template Text not used by [place] Assessments - Encounter Diagnoses This section includes the primary and secondary diagnoses documented for the Encounter. Date/Time Primary/Secondary Diagnosis Diagnosis Name Provider Source Aug 28, 2023 03:04 PM PRIMARY Essential (primary) hypertension VIDYA CHAVARRIA [facility] Plan of Treatment: Future Appointments (+ 6 months) and Future Tests (+/- 45 days) The Plan of Treatment section includes future care activities for the patient from all [place] treatmentfacilities. This section includes future appointments and future orders which are active, pending or scheduled. Future Appointments This section includes appointments that were scheduled to occur 6 months from the date of the Encounter, up to a maximum of 20 appointments. The data comes from all [place] treatment facilities. Appointment Date/Time Appointment Type Appointme nt Facility Name Sep 26, 2023 10:00 AM AMBULATORY - MEDICINE [facility] Oct 09, 2023 11:00 AM AMBULATORY - NONE . [facility] Lab Results: +/- 30 days of the encounter This section includes the Chemistry and Hematology Lab Results on record with [place] for the patient. Radiology Reports and Pathology Reports are provided separately, in subsequent sections. Lab Results This section contains the Chemistry/Hematology Results that were resulted 30 days before or 30 daysafter the date of the Encounter. Date/Time Source Result Type Result - Unit Interpretation Reference Range Comment Sep 26, 2023 11:30 AM [facility] PROTEIN ELECTROPHORESIS BLOOD Specimen Type: SERUM Comment: No M Leandro detected. Reference Range: None Detected Normal Serum Protein Electrophoresis Pattern. No abnormal protein bands (M-protein) detected. Test Performed by [employer], [employer] [facility], [address] [place] [address] Alfred Aly M.D., Ph.D., Director of Laboratories , [place] [id number] Ordering Provider: KRISTINA PANCHAL Report Released Date/Time: Sep 26, 2023 10:20 AM Reporting Lab: [facility] [address] [facility] [address] Performing Lab: [facility] [address] [place] [address] ALPHA-1 GLOBULIN(SO-PB-S TL) 0.3 g/dL 0.2-0.3 ALPHA-2 GLOBULIN(SO-PB-S TL) 0.8 g/dL 0.5-0.9 BETA 1 GLOBULIN(SO-PB-S TL) 0.5 g/dL 0.4-0.6 GAMMA GLOBULIN (SO-PB-STL) 0.9 g/dL 0.8-1.7 TOTAL PROTEIN (SO-PB-STL) 6.8 g/dL 6.1-8.1 ALBUMIN(ELECTROP HORESIS 3.8 g/dL 3.8-4.8 BETA 2 GLOBULIN (SO-PB) 0.4 g/dL 0.2-0.5 INTERPRETATION (STL-PB) SEE NOTE ABNORMAL PROTEIN BAND 1 (SO-PB-STL) SEE NOTE Sep 26, 2023 11:30 AM [facility] HGA1C Specimen Type: BLOOD No comment entered. Ordering Provider: KRISTINA PANCHAL Report Released Date/Time: Sep 26, 2023 10:20 AM Reporting Lab: [facility] [address] [facility] [address] Performing Lab: [facility] [address] [place] [address] HGA1C 7.4 H 4.0-6.0 Sep 26, 2023 11:30 AM [facility] LIPID PANEL (STL) Specimen Type: PLASMA Comment: No hemolysis noted. Ordering Provider: KRISTINA PANCHAL Report Released Date/Time: Sep 26, 2023 10:20 AM Reporting Lab: [facility] [address] [place] [address] Performing Lab: [facility] [address] [place] [phone] CHOLESTEROL 154 mg/dL 0-200 TRIGLYCERIDE 209 mg/dL H 0-150 CALCULATED LDL 69 mg/dL HDL(New) 43 mg/dL >40 Sep 26, 2023 11:30 AM [facility] B12 Specimen Type: SERUM No comment entered. Ordering Provider: KRISTINA PANCHAL Report Released Date/Time: Sep 26, 2023 10:20 AM Reporting Lab: [facility] [address] [place] [address] Performing Lab: [facility] [address] [place] [address] B12 724 pg/mL [phone] Sep 26, 2023 11:30 AM [facility] MICRAL/CREAT PROFILE (STL) Specimen Type: URINE No comment entered. Ordering Provider: KRISTINA PANCHAL Report Released Date/Time: Sep 26, 2023 10:20 AM Reporting Lab: [facility] [address] [facility] [address] Performing Lab: [facility] [address] [place] [phone] URINE ALBUMIN (PB-STL) 27.5 mg/L uACR (STL) 55 mg/g H 0-29 CREATININE URINE/OTHERS 50.4 mg/dL L 63-166 Sep 26, 2023 11:30 AM [facility] COMPREHENSIVE METABOLIC PANEL Specimen Type: PLASMA Comment: No hemolysis noted. Ordering Provider: KRISTINA PANCHAL Report Released Date/Time: Sep 26, 2023 10:20 AM Reporting Lab: [facility] [address] [facility] [address] Performing Lab: [address] [address] CREATININE 1.21 mg/dL 0.7-1.3 UREA NITROGEN 16.4 [...] Sep 26, 2023 11:30 AM [facility] CBC Specimen Type: BLOOD No comment entered. Ordering Provider: KRISTINA PANCHAL Report Released Date/Time: Sep 26, 2023 10:20 AM Reporting Lab: [address] [address] Performing Lab: [address] [address] WBC 5.7 10*3/uL 3.6-11.2 RBC 3.68 10*6/uL [...] Sep 26, 2023 09:55 AM [facility] GLUCOSE,BLOOD-poct (STL) Specimen Type: BLOOD Comment: Test Performed by: [id number] Meter #: [id number] Ordering Provider: KRISTINA PANCHAL Report Released Date/Time: Sep 26, 2023 03:59 PM Reporting Lab: [address] [address] Performing Lab: [address] [address] GLUCOSE,BLOOD-po ct (STL) 181 mg/dL H 72-99 Advance Directives: All historical and current Section Date Range: From patient's date of to the date document was created. This section includes ALL of a patient's completed or amended [place] Advance and Rescinded Directives. The entries below indicate that a directive exists for the patient, but an actual copy is not included with this document. The data comes from all [place] facilities. Date Advance Directives Provider Source Mar 26, 2021 ADVANCE DIRECTIVE DISCUSSION Jaqueline LEON [facility] Jun 12, 2014 ADVANCE DIRECTIVE DISCUSSION GÓMEZ ESPINAL [facility] Encounter Notes: All associated encounter notes This section contains the clinical notes associated to the Encounter. Date/Time Encounter Note(s) Provider Source Aug 28, 2023 03:02 PM RECREATIONAL THERA PY CONSULT: LOCAL TITLE: RT OPT EXERCISE [facility]QU[facility]IC [facility]IC CONSULT STL STANDARD TITLE: RECREATIONAL THERAPY CONSULT DATE OF NOTE: AUG 28, 2023@15:02 ENTRY DATE: AUG 28, 2023@15:02:57 AUTHOR: VIDYA CHAVARRIA EXP COSIGNER: KRISTINA PANCHAL URGENCY: STATUS: COMPLETED Referring Provider:Job Referring Diagnosis:I10. Recreation Therapy Phase 3 Evaluation/Reevaluation MANAGER AUDIO met with [place] for physical and cognitive eval to ensure safety and compliance with Phase 3, self-directed usage of [facility] and pool. 1. [place] was given Hours Of Operation handout and reminded to enter day sessions through front entrance of [facility], evening and weekend sessions through side door to gym, and pool exterior door for evening and weekend sessions. 2. How to use scale; be sure and power down when finished to save battery life - DO NOT CHANGE SETTINGS! 3. How to complete 6 min warm up walk and benefits of warm up walk. 4. Proper use of Nautilus Equipment; BE SURE TO ONLY SWITCH OVER ONE WEIGHT PREFERANCE TO GREEN, click back to RED once finished. CLICKING 2 TO GREEN AT SAME TIME WILL JAM MACHINE! 5. Proper use of Treadmill 6. Proper use of Elliptical 7. Proper use of Recumbent Bicycles 8. Location and use of locker room/shower facilities 9. Emergency exits and procedure 10. Bow[place] Alley use 11. UNDERSTANDS THAT IT IS HIS/HER RESPONSIBILITY TO BRING OWN LOCK FOR LOCKERS AND THAT [facility] IS NOT RESPONSIBLE FOR LOST OR STOLEN ITEMS 12. Is aware that they must adhere to CODE OF CONDUCT which stated they must be courteous, kind and respectful to all fellow Veterans, Staff and Volunteers 13. understands this it is their responsibility to maintain updated RT Personal Exercise clearance consult which will require recertification from provider after 1 year. 14. [place] is aware that they may not use [facility] recreation facilities without active consult. 15. [place] is aware that if they have any changes to health (physically or mentally) that it is their obligation to alert provider for reassessment. 16. [place] may have gym privileges revoked if he/she fails to alert staff regarding any significant health concerns that could affect safety while exercising. (i.e. cardio, pulmonary, ortho). This consult also provides clearance for the athletes of the [employer] to participate in all training and conditioning clinics. Short-term Goals: 1. [place] will be cleared or renewed for Phase 3 program. 2. verbalized understanding of the above items/Code of Conduct. 3. [place] completed verbal agreement during orientation session. Long-term Goals: 1. will be self-sufficient in their exercise program and receive ongoing training regarding fitness routine. 2. will use facilities for self-directed exercise for the upcoming year. /yesenia/ Vidya Bey. MICHAEL Chavarria Recreation Therapist Signed: 08/28/2023 15:04 /yesenia/ KRISTINA PANCHAL MD STAFF PHYSICIAN INTERNAL MEDICINE Cosigned: 08/31/2023 12:15 VIDYA CHAVARRIA [facility]
--- OUTSIDE RECORDS SUMMARY | 2024-07-23 06:11 | XMS_ITS ---
Author Name [facility] [place] [facility] [place] Organization [facility] [place] [facility] [place] Address [address] [place] [address] Care Team Providers Care Filenet Admin Name Role Phone ABDULKADIR KRISTINA Primary Care [...] COURTNEY PLUS 1 Jul 24, 2015 106 [id number] [phone] [place]AM [place] [facility] [place] FEP PREFERRED PROVIDER ORGANIZAT ION (PPO) FEP STAND COURTNEY PLUS 1 Jul 24, 2015 106 [id number] [phone] [place]YAM [place] [facility] [place] PREFERRED PROVIDER ORGANIZAT ION (PPO) FEP STAND COURTNEY PLUS 1 Jul 24, 2015 106 [id number] [phone] [place]YAM ZHENG [facility] [place] FEP RETIREE [id number] Jan 22, 2004 105 [id number] PAYAM ZHENG PATIENT [place] FEP PREFERRED PROVIDER ORGANIZAT ION (PPO) FEP STAND COURTNEY PLUS 1 Jul 24, 2015 106 [id number] [phone] PAYAM ZHENG PATIENT [place] FEP PRESCRIPT ION [id number] Jan 22, 2004 [id number] [phone] PAYAM ZHENG PATIENT MEDICARE (WNR) MEDICARE (M) PART A Jan 22, 2004 PART A [id number] [phone] PAYAM ZHENG PATIENT MEDICARE (WNR) MEDICARE (M) PART B Jan 22, 2004 PART B [id number] [phone] PAYAM ZHENG PATIENT MEDICARE (WNR) MEDICARE (M) PART A Jan 22, 2004 PART A [id number] PAYAM ZHENG PATIENT MEDICARE (WNR) MEDICARE (M) PART B Jan 22, 2004 PART B [id number] PAYAM ZHENG PATIENT Selected Encounter This section includes the information on record at [place] for the Encounter. Date/Time Encounter Type Encounter Description Reason Provider Source Jul 15, 2024 10:00 AM HEARING AID SUP/ACCESS/DEV AUDIOLOGY ICD-10-CM H90.3 Sensorineural hearing loss, bilateral OSVLADO CHAPMAN ICA N IHE Encounter Template Text not used by [place] Assessments - Encounter Diagnoses This section includes the primary and secondary diagnoses documented for the Encounter. Date/Time Primary/Secondary Diagnosis Diagnosis Name Provider Source Jul 15, 2024 10:58 AM PRIMARY Sensorineural hearing loss, bilateral TAMMY CHAPMAN [place] [facility] Plan of Treatment: Future Appointments (+ [...] Date/Time Appointment Type Appointme nt Facility Name Jul 30, 2024 01:00 PM AMBULATORY - NONE [facility] Jul 31, 2024 08:30 AM AMBULATORY - NONE [facility] Oct 02, 2024 11:15 AM AMBULATORY - MEDICINE [facility] November 25, 2024 10:45 AM AMBULATORY - MEDICINE [facility] November 27, 2024 10:30 AM AMBULATORY - SURGERY [facility] Active, Pending, and Scheduled Orders This section includes a listing of several types of active, pending, and scheduled orders, including clinic medications orders, diagnostic test orders, procedure orders and consult orders; where the start date of the order is 45 days before the date of the Encounter or 45 days after the date of theEncounter. The data comes from all [place] treatment facilities. Test Date/Time Test Type Test Details Facility Name Jul 30, 2024 01:00 PM Imaging - Nuclear Medicine Order NM LYMPH NODE IMAGING- P [facility] Jul 31, 2024 06:00 AM Pharmacy - Clinic Infusion Order [facility] Lab Results: +/- 30 days of [...] Range Comment Jul 03, 2024 11:25 AM [facility] BASIC METABOLIC PANEL Specimen Type: PLASMA Comment: No hemolysis noted. Ordering Provider: JYOTI SIMMONS Report Released Date/Time: Jun 24, 2024 11:11 AM Reporting Lab: [facility] [address] [facility] [address] Performing Lab: [facility] [address] [facility] [address] CREATININE 1.17 mg/dL 0.7-1.3 UREA NITROGEN 15.4 mg/dL 9.0-25.0 GLUCOSE 175 mg/dL H 72-99 SODIUM 140 meq/L 136-145 POTASSIUM 4.3 meq/L 3.5-5 CHLORIDE 106 meq/L 98-107 CARBON DIOXIDE 25 meq/L 22-31 CALCIUM 9.0 mg/dL 8.4-10.4 EGFR (CKD-EPI 2020) 61.1 >60 Jul 03, 2024 11:25 AM [facility] CBC Specimen Type: BLOOD No comment entered. Ordering Provider: JYOTI SIMMONS Report Released Date/Time: Jun 24, 2024 11:11 AM Reporting Lab: [facility] [address] [facility] [address] Performing Lab: [facility] [address] [facility] [address] WBC 8.1 10*3/uL 3.6-11.2 RBC 3.72 10*6/uL [...] place. Date/Time Current Smoking Status Comment Facil ittha December 07, 2015 03:10 PM QUIT TOBACCO >7 YEARS AGO [facility] Tobacco Use History This section includes a history of the smoking, or tobacco-related health factors, that were collected on or before the date of the Encounter. The data comes from the [place] facility where the Encounter took place. Date/Time Smoking Status/Tobacco Use Comment F acility May 20, 2014 09:22 AM QUIT TOBACCO >7 YEARS AGO [facility] Feb 19, 2013 09:01 AM QUIT TOBACCO >7 YEARS AGO [facility] December 20, 2006 08:06 AM QUIT TOBACCO >7 YEARS AGO [facility] Jun 12, 2006 09:00 AM CURRENT NON-TOBACC O USER-HX OF USE [facility] Jun 12, 2006 09:00 AM TOBACCO TERMINATION STAGE [facility] December 07, 2005 11:12 AM CURRENT NON-TOBACC O USER-HX OF USE [facility] December 07, 2005 11:12 AM TOBACCO TERMINATION STAGE [facility] Mar 21, 2005 01:46 PM CURRENT NON-TOBACC O USER-HX OF USE [facility] Mar 21, 2005 01:46 PM TOBACCO TERMINATION STAGE [facility] Mar 03, 2004 09:58 AM CURRENT NON-TOBACC O USER-HX OF USE [facility] Mar 03, 2004 09:58 AM TOBACCO TERMINATION STAGE [facility] Apr 21, 2003 09:25 AM CURRENT NON-TOBACC O USER-HX OF USE QUIT [address] [place] [address] Apr 21, 2003 09:25 AM CURRENT NON-TOBACC O USER-RECENTLY QUIT quit [address] [place] [address] Apr 21, 2003 09:25 AM TOBACCO USE quit [address] [place] [address] Nov 07, 2002 09:14 AM CURRENT NON-TOBACC O USER-RECENTLY QUIT quit [address] [place] [address] Nov 07, 2002 09:14 AM TOBACCO USE quit [address] [place] [address] Nov 08, 2001 08:09 AM CURRENT NON-TOBACC O USER-HX OF USE quit 20 yrs. ago [facility] Advance Directives: All historical and current [...] ADVANCE DIRECTIVE DISCUSSION Jaqueline LEON [facility] Jun 12, 2014 ADVANCE DIRECTIVE DISCUSSION GÓMEZ ESPINAL [facility] Radiology Reports: +/- 30 days of [...] the Encounter. The data comes from all [place] treatment facilities. Date/Time Radiology Report Provider Source Jul 03, 2024 10:59 AM CHEST X-RAY, 2 VIE WS: VAUGHN ZHENG [id number] -[id number] Ex Date: JUL 03, 2024@10:59 Req Phys: DIAMOND SCRUGGS Loc: -GEN SURG I CLINIC (Req'g Lo Img Loc: -MAIN RADIOLOGY SUITE Service: [address] [address] (Case [id number] COMPLETE) CHEST X-RAY, 2 VIEWS (RAD Detailed) CPT:85430 Reason for Study: Pre Op Clinical History: Report Status: Verified Date Reported: JUL 04, 2024 Date Verified: JUL 04, 2024 Pre Certification Specialist E-Sig:/ES/KATY MCNEIL MD Report: Case #[id number]. Chest examination. COMPARISON: 05/25/2023. Finding: PA and lateral views of the chest examination shows no evidence of cardiomegaly. Tortuous aorta is seen. No evidence of pulmonary vascular congestion, consolidation or mass. No evidence of pleural effusion or pneumothorax. Impression: No evidence of pulmonary consolidation, mass or lymphadenopathy. Primary Interpreting Staff: KATY MCNEIL MD, Staff Physician - Radiologist (Pre Certification Specialist) /KATY GONZALEZ [facility] [facility] Encounter Notes: All associated encounter notes This section contains the clinical notes associated to the Encounter. Date/Time Encounter Note(s) Provider Source Jul 15, 2024 09:55 AM AUDIOLOGY PAINTER AIRBRUSH NOTE: LOCAL TITLE: HEARING AIDS STL STANDARD TITLE: AUDIOLOGY PAINTER AIRBRUSH NOTE DATE OF NOTE: JUL 15, 2024@09:55 ENTRY DATE: JUL 15, 2024@09:55:19 AUTHOR: CARLY CHAPMAN COSIGNER: URGENCY: STATUS: COMPLETED SUBJECT: Audio Pt was seen for fitting of new hearing aid(s). Otoscopy reveals clear ear canals. Aid(s) were programmed to First Fit and adjusted to NAL-NL2 prescriptive target. [x] provider initiated visit Family members were: [] Present [x] Not present [x] Conformity eval completed [] Conformity eval unavailable [] Disposable batteries [x] Rechargeable batteries [] new user []Email and phone number verified with patient for VVC purposes. []Digital divide consult entered []Digital divide consult unnecessary. Patient has access to equipment. [x] experienced user- 06/25/20 [employer] PHONAK AUDEO P90-RT YA with skeleton lock cShells Today, pt was fit with binaural Alysha EDGE AI ITC R with canal locks. The aids are programmed as: auto, MB=VC (right raise, left lower), BT to Android (Element Designs3 5G running Android version 14, compatible for one-way audio). provided with principal quality engineer application info; to download and pair on his own as desired. Right: [id number] Left: [phone] Trial period: 12/22/24 The following standardized education was provided and the pt was able to demonstrate understanding after the education: o Introduction to aids (red/blue, right/left) o Parts of the aid o Hygiene Teacher o Insertion/removal of aids. o Volume control o Realistic expectations of aids. o Cleaning/maint of aids. Wax filters. [place]. o Review of the items: soft case, hard case o Review of the paperwork: supply reorder form, instruction manual, IOI survey, clinician name/number, L&D form o Review trial period and warranty o Bluetooth handout Real-ear measures are within acceptable limits. Curves stored in VERITO. Decreased overall gain by 1 step per pt request. Pt reported some perception of occlusion from aids. Counseled pt regarding adaptation to aids. Discussed trial period if return to YA style aids desired. Pt voiced understanding. Counseled pt on proper use and care of aids. Pt practiced insertion/removal of aids. Pt verbalized understanding of hearing aid care and maintenance. Supplies ordered in ROES. Rec: 1. Full-time hearing aid use to facilitate adjustment to amplification. 2. Contact Audiology Clinic [phone] or [phone] for repairs and/or adjustments as needed. 3. Pt to return completed IOI survey in 30 days. Time for appt: 52 min /yesenia/ Lars TIAN Staff Export Documents Clerk, Surgery Service Signed: 07/15/2024 10:59 CARLY CHAPMAN [facility]
--- OUTSIDE RECORDS SUMMARY | 2024-07-23 06:11 | XMS_ITS | Encounter Summary ---
Author Name [facility] [place] [facility] [place] Organization [facility] [place] Address [address] [place] [address] Care Team Providers Care Auto Damage Adjuster Name Role Phone ABDULKADIR KRISTINA Primary Care [...] COURTNEY PLUS 1 Jul 24, 2015 [id number] [phone] PAYAM ZHENG PATIENT ANTHE[place] FEP PREFERRED PROVIDER ORGANIZAT ION (PPO) FEP STAND COURTNEY PLUS 1 Jul 24, 2015 106 [id number] [phone] PAYAM ZHENG PATIENT [place] PREFERRED PROVIDER ORGANIZAT ION (PPO) FEP STAND COURTNEY PLUS 1 Jul 24, 2015 106 [id number] [phone] PAYAM ZHENG PATIENT BCBS FEP RETIREE [id number] Jan 22, 2004 [id number] PAYAM ZHENG PATIENT [place] FEP PREFERRED PROVIDER ORGANIZAT ION (PPO) FEP STAND COURTNEY PLUS 1 Jul 24, 2015 106 [id number] [phone] PAYAM ZHENG PATIENT [place] FEP PRESCRIPT ION [id number] Jan 22, 2004 [id number] [phone] PAYAM ZHENG PATIENT MEDICARE (WNR) MEDICARE (M) PART A Jan 22, 2004 PART A [id number] PAYAM ZHENG PATIENT MEDICARE (WNR) MEDICARE (M) PART B Jan 22, 2004 PART B [id number] [phone] PAYAM ZHENG PATIENT MEDICARE (WNR) MEDICARE (M) PART A Jan 22, 2004 PART A [id number] PAYAM ZHENG PATIENT MEDICARE (WNR) MEDICARE (M) PART B Jan 22, 2004 PART B [id number] [id number] PAYAM ZHENG PATIENT Selected Encounter This section includes the information on record at [place] for the Encounter. Date/Time Encounter Type Encounter Description Reason Provider Source Jun 24, 2024 09:50 AM HEARING AID FITTING/CHECKIN G AUDIOLOGY ICD-10-CM H90.3 Sensorineural hearing loss, bilateral SAQIB MONTES Gerardo Encounter Template Text not used by [place] Assessments - Encounter Diagnoses This section includes the primary and secondary diagnoses documented for the Encounter. Date/Time Primary/Secondary Diagnosis Diagnosis Name Provider Source Jun 24, 2024 09:55 AM PRIMARY Sensorineural hearing loss, bilateral JOSE MCKEONA [facility] Plan of Treatment: Future Appointments (+ [...] Appointment Type Appointme nt Facility Name Jul 03, 2024 10:20 AM AMBULATORY - SURGERY [facility] Jul 15, 2024 10:00 AM AMBULATORY - SURGERY [facility] Jul 30, 2024 01:00 PM AMBULATORY - NONE [facility] Jul 31, 2024 08:30 AM AMBULATORY - NONE [facility] Oct 02, 2024 11:15 AM AMBULATORY - MEDICINE [facility] November 25, 2024 10:45 AM AMBULATORY - MEDICINE [facility] NOEMI [facility] November 27, 2024 10:30 AM AMBULATORY - SURGERY [facility] Porsha [facility] Active, Pending, and Scheduled Orders This section [...] Medicine Order NM LYMPH NODE IMAGING- P [facility] Jul 31, 2024 06:00 AM Pharmacy - Clinic Infusion Order [facility] Lab Results: +/- 30 days of the encounter This section includes the Chemistry and Hematology Lab Results on record with [place] for the patient. Radiology Reports and Pathology Reports are provided separately, in subsequent sections. Lab Results This section contains the Chemistry/Hematology Results that were resulted 30 days before or 30 daysafter the date of the Encounter. Date/Time Source Result Type Result - Unit Interpretation Reference Range Comment Jul 03, 2024 11:25 AM [facility] BASIC METABOLIC PANEL Specimen Type: PLASMA Comment: No hemolysis noted. Ordering Provider: JYOTI SIMMONS Report Released Date/Time: Jun 24, 2024 11:11 AM Reporting Lab: [facility] [address] [facility] [address] Performing Lab: [place] [id number] [facility] [address] CREATININE 1.17 mg/dL 0.7-1.3 UREA NITROGEN 15.4 mg/dL 9.0-25.0 GLUCOSE 175 mg/dL H 72-99 SODIUM 140 meq/L 136-145 POTASSIUM 4.3 meq/L 3.5-5 CHLORIDE 106 meq/L 98-107 CARBON DIOXIDE 25 meq/L 22-31 CALCIUM 9.0 mg/dL 8.4-10.4 EGFR (CKD-EPI 2020) 61.1 >60 Jul 03, 2024 11:[address] [facility] CBC Specimen Type: BLOOD No comment entered. Ordering Provider: JYOTI SIMMONS Report Released Date/Time: Jun 24, 2024 11:11 AM Reporting Lab: [facility] [address] [facility] [address] Performing Lab: [facility] [address] [facility] [address] WBC 8.1 10*3/uL 3.6-11.2 RBC 3.72 10*6/uL [...] 03:10 PM QUIT TOBACCO >7 YEARS AGO [facility] Tobacco Use History This section includes a history of the smoking, or tobacco-related health factors, that were collected on or before the date of the Encounter. The data comes from the [place] facility where the Encounter took place. Date/Time Smoking Status/Tobacco Use Comment Abisai garcía May 20, 2014 09:22 AM QUIT TOBACCO >7 YEARS AGO [facility] Feb 19, 2013 09:01 AM QUIT TOBACCO >7 YEARS AGO [facility] December 20, 2006 08:06 AM QUIT TOBACCO >7 YEARS AGO [facility] Jun 12, 2006 09:00 AM CURRENT NON-TOBACC O USER-HX OF USE [facility] Jun 12, 2006 09:00 AM TOBACCO TERMINATION STAGE [facility] December 07, 2005 11:12 AM CURRENT NON-TOBACC O USER-HX OF USE [facility] December 07, 2005 11:12 AM TOBACCO TERMINATION STAGE [facility] Mar 21, 2005 01:46 PM CURRENT NON-TOBACC O USER-HX OF USE [facility] Mar 21, 2005 01:46 PM TOBACCO TERMINATION STAGE [facility] Mar 03, 2004 09:58 AM CURRENT NON-TOBACC O USER-HX OF USE [facility] Mar 03, 2004 09:58 AM TOBACCO TERMINATION STAGE [facility] Apr 21, 2003 09:25 AM CURRENT NON-TOBACC O USER-HX OF USE QUIT [address] [place] [address] Apr 21, 2003 09:25 AM CURRENT NON-TOBACC O USER-RECENTLY QUIT quit [address] [place] [address] Apr 21, 2003 09:25 AM TOBACCO USE quit [address] [place] [address] Nov 07, 2002 09:14 AM CURRENT NON-TOBACC O USER-RECENTLY QUIT quit [address] [place] [address] Nov 07, 2002 09:14 AM TOBACCO USE quit [address] [place] [address] Nov 08, 2001 08:09 AM CURRENT NON-TOBACC O USER-HX OF USE quit 20 yrs. ago [facility] Advance Directives: All historical and current [...] 2021 ADVANCE DIRECTIVE DISCUSSION Jaqueline LEON [facility] Jun 12, 2014 ADVANCE DIRECTIVE DISCUSSION GÓMEZ ESPINAL [facility] Radiology Reports: +/- 30 days of [...] the Encounter. The data comes from all [place] treatment facilities. Date/Time Radiology Report Provider Source Jul 03, 2024 10:59 AM CHEST X-RAY, 2 VIE WS: VAUGHN ZHENG [id number] -[id number] M Ex Date: JUL 03, 2024@10:59 Req Phys: DIAMOND SCRUGGS Loc: -GEN SURG I CLINIC (Req'g Lo Img Loc: -MAIN RADIOLOGY SUITE Service: [facility], [address] [address] (Case [id number] COMPLETE) CHEST X-RAY, 2 VIEWS (RAD Detailed) CPT:44999 Reason for Study: Pre Op Clinical History: Report Status: Verified Date Reported: JUL 04, 2024 Date Verified: JUL 04, 2024 Concrete Paving Supervisor E-Sig:/ES/KATY MCNEIL MD Report: Case #[id number]. Chest examination. COMPARISON: 05/25/2023. Finding: PA and lateral views of the chest examination shows no evidence of cardiomegaly. Tortuous aorta is seen. No evidence of pulmonary vascular congestion, consolidation or mass. No evidence of pleural effusion or pneumothorax. Impression: No evidence of pulmonary consolidation, mass or lymphadenopathy. Primary Interpreting Staff: KATY MCNEIL MD, Staff Physician - Radiologist (Concrete Paving Supervisor) /KATY GONZALEZ [facility] Pathology Reports: +/- 30 days [...] the Encounter. The data comes from all [place] treatment facilities. Date/Time Pathology Report Provider Source [...] crust scale. The cells stain positive for [place]-1/Melan-A and SOX10 while they are negative for [...] Performing Laboratory: Surgical Pathology Report Performed By: [address]# [id number] [address] [place] [id number] $FTR - - - - - - [...] - - VAUGHN ZHENG STANDARD FORM 515 ID:[id number] SEX:M :1940 AGE: 84 LOC:DERMCON PCP: Kristina Kaiser MD /yesenia/ BERNIE HOUSTON MD DERMATOLOGY & DERMATOPATHOLOGY Signed: 06/07/2024 12:01 BERNIE HOUSTON [facility] Encounter Notes: All associated encounter notes This section contains the clinical notes associated to the Encounter. Date/Time Encounter Note(s) Provider Source Jun 24, 2024 09:50 AM AUDIOLOGY PATIENT CARE ASSOCIATE NOTE: LOCAL TITLE: HEARING AIDS STL STANDARD TITLE: AUDIOLOGY PATIENT CARE ASSOCIATE NOTE DATE OF NOTE: JUN 24, 2024@09:50 ENTRY DATE: JUN 24, 2024@09:50:10 AUTHOR: SAQIB MONTES COSIGNER: URGENCY: STATUS: COMPLETED SUBJECT: audio HEARING AIDS STL Has ADDENDA HEARING AID CHECK: [place] dropped off the following [facility] issued aid(s): 06/25/20 SONOVA PHONAK AUDEO P90-RT YA R [id number] 06/25/20 SONOVA PHONAK AUDEO P90-RT AY L [id number] PHONE: [phone] REPORTED PROBLEM: left aid weak, update programming. REPAIR ACTIONS: Listening check revealed aids were in good condition. Filters were removed and replaced. Justino ports were brushed. Listening check was good. Aids connected to software. Update performed. Hearing aids updated to 06/19/2024 audiogram. Called pt and notified of repair actions. ETA will be 2-3 business days via [place] [employer]. expressed agreement with plan. PLAN [x] Hearing device(s) mail to [place] per request. VERIFIED ADDRESS: [address] [place] [phone] Of note, pt has Jul 15 HAF appt sched. Completed by Angel Wilkins, doctoral audiology resident. The information above has been reviewed by this provider. I am in agreement with the treatment plan as outlined. /yesenia/ Lars LEIVA Staff Oracle Programmer Analyst, Surgery Service Signed: 06/24/2024 10:04 06/24/2024 ADDENDUM STATUS: COMPLETED [id number] /Lars Romero Staff Oracle Programmer Analyst, Surgery Service Signed: 06/24/2024 11:32 SAQIB MONTES [facility]
--- OUTSIDE RECORDS SUMMARY | 2024-07-23 06:11 | XMS_ITS ---
[facility] TELEPHONE ANESTHESIA [facility] Encounter Summary Created on: July 23, 2024 NORM VAUGHN Rachel : 1940 Sex: Male Author Name [facility] [place] [facility] [place] Address [address] [place] [address] Care Team Providers Care Field Recorder Name Role Phone KRISTINA PANCHAL Primary Care [...] COURTNEY PLUS 1 Jul 24, 2015 106 [id number] [phone] PAYAM ZHENG PATIENT ANTHEM [employer] [place] FEP PREFERRED PROVIDER ORGANIZAT ION (PPO) FEP STAND COURTNEY PLUS 1 Jul 24, 2015 106 [id number] [phone] PAYAM ZHENG PATIENT AN[place] F[place] PREFERRED PROVIDER ORGANIZAT ION (PPO) FEP STAND COURTNEY PLUS 1 Jul 24, 2015 106 [id number] [phone] PAYAM ZHENG PATIENT [employer] FEP RETIREE [id number] Jan 22, 2004 105 [id number] PAYAM ZHENG PATIENT [place] F[place] PREFERRED PROVIDER ORGANIZAT ION (PPO) FEP STAND COURTNEY PLUS 1 Jul 24, 2015 106 [id number] [phone] PAYAM ZHENG PATIENT [place] FEP PRESCRIPT ION [id number] Jan 22, 2004 [id number] PAYAM ZHENG PATIENT MEDICARE (WNR) MEDICARE (M) PART A Jan 22, 2004 PART A [id number] PAYAM ZHENG PATIENT MEDICARE (WNR) MEDICARE (M) PART B Jan 22, 2004 PART B [id number] PAYAM ZHENG PATIENT MEDICARE (WNR) MEDICARE (M) PART A Jan 22, 2004 PART A [id number] PAYAM ZHENG PATIENT MEDICARE (WNR) MEDICARE (M) PART B Jan 22, 2004 PART B [id number] PAYAM ZHENG PATIENT Selected Encounter This section includes the information on record at [place] for the Encounter. Date/Time Encounter Type Encounter Description Reason Provider Source Jul 04, 2024 01:38 PM Outpatient Encounter TELEPHONE ANESTHESIA ICD-10-CM Z01.818 Encounter for other preprocedural examination SIVA BARLOW Gerardo Encounter Template Text not used by [place] Assessments - Encounter Diagnoses This section includes the primary and secondary diagnoses documented for the Encounter. Date/Time Primary/Secondary Diagnosis Diagnosis Name Provider Source Jul 04, 2024 01:38 PM PRIMARY Encounter for other preprocedural examination STAR BARLOW [facility] Jul 04, 2024 01:38 PM SECONDARY Essential (primary) hypertension STAR BARLOW [facility] Jul 04, 2024 01:38 PM SECONDARY Gastro-esophageal reflux disease without esophagitis STAR BARLOW [facility] Jul 04, 2024 01:38 PM SECONDARY Hypothyroidism, unspecified STAR BARLOW [facility] Jul 04, 2024 01:38 PM SECONDARY Malignant melanoma of unsp upper limb, including shoulder STAR BARLOW [facility] Jul 04, 2024 01:38 PM SECONDARY Type 2 diabetes mellitus with hyperglycemia STAR BARLOW Mina Barone 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 Plan of Treatment: Future Appointments (+ 6 months) and Future Tests (+/- 45 days) The Plan of Treatment section includes future care activities for the [facility] [place] [facility] This section includes future appointments and future orders which are active, pending or scheduled. Future Appointments This section includes appointments that were scheduled to occur 6 months from the date of the Encounter, up to a maximum of 20 appointments. The data comes from all [facility]. Appointment Date/Time Appointment Type Appointme nt Facility Name Jul 15, 2024 10:00 AM AMBULATORY - SURGERY [facility] Jul 30, 2024 01:00 PM AMBULATORY - NONE [facility] Jul 31, 2024 08:30 AM AMBULATORY - NONE [facility] Oct 02, 2024 11:15 AM AMBULATORY - MEDICINE [facility] November 25, 2024 10:45 AM AMBULATORY - MEDICINE [facility] November 27, 2024 10:30 AM AMBULATORY - SURGERY [facility] Active, Pending, and Scheduled Orders This section includes a listing of several types of active, pending, and scheduled orders, including clinic medications orders, diagnostic test orders, procedure orders and consult orders; where the start date of the order is 45 days before the date of the Encounter or 45 days after the date of theEncounter. The data comes from all [facility]. Test Date/Time Test Type Test Details Facility Name Jul 30, 2024 01:00 PM Imaging - Nuclear Medicine Order [place] LYMPH NODE IMAGING- P [facility] Jul 31, 2024 06:00 AM Pharmacy - Clinic Infusion Order [facility] Lab Results: +/- 30 days of the encounter This section includes the Chemistry and Hematology Lab Results on record with [place] for the patient. Radiology Reports and Pathology Reports are provided separately, in subsequent sections. Lab Results This section contains the Chemistry/Hematology Results that were resulted 30 days before or 30 daysafter the date of the Encounter. Date/Time Source Result Type Result - Unit Interpretation Reference Range Comment Jul 03, 2024 11:[address] [facility] BASIC METABOLIC PANEL Specimen Type: PLASMA Comment: No hemolysis noted. Ordering Provider: JYOTI SIMMONS Report Released Date/Time: Jun 24, 2024 11:11 AM Reporting Lab: [facility] [address] [place] [id number] Performing Lab: [address] [address] CREATININE 1.17 mg/dL 0.7-1.3 UREA NITROGEN 15.4 mg/dL 9.0-25.0 GLUCOSE 175 mg/dL H 72-99 SODIUM 140 meq/L 136-145 POTASSIUM 4.3 meq/L 3.5-5 CHLORIDE 106 meq/L 98-107 CARBON DIOXIDE 25 meq/L 22-31 CALCIUM 9.0 mg/dL 8.4-10.4 EGFR (CKD-EPI 2020) 61.1 >60 Jul 03, 2024 11:[address] [facility] CBC Specimen Type: BLOOD No comment entered. Ordering Provider: JYOTI SIMMONS Report Released Date/Time: Jun 24, 2024 11:11 AM Reporting Lab: [facility] [address] [place] [id number] Performing Lab: [address] [id number] WBC 8.1 10*3/uL 3.6-11.2 RBC 3.72 10*6/uL [...] and tobacco- related health factors from the [place] facility where the Encounter took place. Current Smoking Status This section includes the most current smoking, or tobacco-related health factor, from the [place] facility where the Encounter took place. Date/Time Current Smoking Status Comment Leonela franco December 07, 2015 03:10 PM QUIT TOBACCO >[address] [facility] Tobacco Use History This section includes a history of the smoking, or tobacco-related health factors, that were collected on or before the date of the Encounter. The data comes from the [place] facility where the Encounter took place. Date/Time Smoking Status/Tobacco Use Comment F acility May 20, 2014 09:22 AM QUIT TOBACCO >[address] [facility] Feb 19, 2013 09:01 AM QUIT TOBACCO >[address] [facility] December 20, 2006 08:06 AM QUIT TOBACCO >[address] [facility] Jun 12, 2006 09:00 AM CURRENT NON-TOBACC O USER-HX OF USE [facility] Jun 12, 2006 09:00 [address] TOBACCO TERMINATION STAGE [facility] December 07, 2005 11:12 AM CURRENT NON-TOBACC O USER-HX OF USE [facility] December 07, 2005 11:12 AM TOBACCO TERMINATION STAGE [facility] Mar 21, 2005 01:46 PM CURRENT NON-TOBACC O USER-HX OF USE [facility] Mar 21, 2005 01:46 PM TOBACCO TERMINATION STAGE [facility] Mar 03, 2004 09:58 AM CURRENT NON-TOBACC O USER-HX OF USE [facility] Mar 03, 2004 09:58 AM TOBACCO TERMINATION STAGE [facility] Apr 21, 2003 09:25 AM CURRENT NON-TOBACC O USER-HX OF USE QUIT 1971 [facility] Apr 21, 2003 09:25 AM CURRENT NON-TOBACC O USER-RECENTLY QUIT quit [address] [facility] Apr 21, 2003 09:25 AM TOBACCO USE quit [address] [place] [address] Nov 07, 2002 09:14 AM CURRENT NON-TOBACC O USER-RECENTLY QUIT quit [address] [place] [address] Nov 07, 2002 09:14 AM TOBACCO USE quit [address] [place] [address] Nov 08, 2001 08:09 AM CURRENT NON-TOBACC O USER-HX OF USE quit [address] [facility] Advance Directives: All historical and current Section Date Range: From patient's date of to the date document was created. This section includes ALL of a patient's completed or amended [place] Advance and Rescinded Directives. The entries below indicate that a directive exists for the patient, but an actual copy is not included with this document. The data comes from all [place] facilities. Date Advance Directives Provider Source Mar 26, 2021 ADVANCE DIRECTIVE DISCUSSION Jaqueline LEON [facility] Jun 12, 2014 ADVANCE DIRECTIVE DISCUSSION GÓMEZ ESPINAL [facility] Radiology Reports: +/- 30 days of the [...] the Encounter. The data comes from all [place] treatment facilities. Date/Time Radiology Report Provider Source Jul 03, 2024 10:59 AM CHEST X-RAY, 2 VIE WS: VAUGHN ZHENG [id number] -[id number] M Exm Date: JUL 03, 2024@10:59 Req Phys: DIAMOND BOYCE Loc: [facility] (Req'g Lo Img Loc: -MAIN RADIOLOGY SUITE Service: Unknown [facility] [address] [place] [address] (Case [id number] COMPLETE) CHEST X-RAY, 2 VIEWS (RAD Detailed) CPT:58235 Reason for Study: Pre Op Clinical History: Report Status: Verified Date Reported: JUL 04, 2024 Date Verified: JUL 04, 2024 Beater Engineer Helper E-Sig:/ES/KATY MCNEIL MD Report: Case #[id number]. Chest examination. COMPARISON: 05/25/2023. Finding: PA and lateral views of the chest examination shows no evidence of cardiomegaly. Tortuous aorta is seen. No evidence of pulmonary vascular congestion, consolidation or mass. No evidence of pleural effusion or pneumothorax. Impression: No evidence of pulmonary consolidation, mass or lymphadenopathy. Primary Interpreting Staff: KATY MCNEIL MD, Staff Physician - Radiologist (Beater Engineer Helper) /KATY GONZALEZ [facility] Pathology Reports: +/- 30 days of [...] the Encounter. The data comes from all [place] treatment facilities. Date/Time Pathology Report Provider Source [...] - - - $TEXT Submitted by: MEG BOYCE Date obtained: May 28, 2024 14:13 - [...] crust scale. The cells stain positive for [place]-1/Melan-A and SOX10 while they are negative for [...] Performing Laboratory: Surgical Pathology Report Performed By: [facility] [address] [facility]# [id number] [address] [facility] [address] [place] [address] $FTR - - - - - - [...] - - - - - VAUGHN ZHENG Virginie STANDARD FORM 515 ID:[id number] SEX:M :1940 AGE: 84 LOC:DERMCON PCP: Kristina Panchal MD /yesenia/ BERNIE HOUSTON MD DERMATOLOGY & DERMATOPATHOLOGY Signed: 06/07/2024 12:01 BERNIE HOUSTON [facility] Encounter Notes: All associated encounter notes This section contains the clinical notes associated to the Encounter. Date/Time Encounter Note(s) Provider Source Jul 04, 2024 01:38 PM ANESTHESIOLOGY CON SULT: LOCAL TITLE: ANESTHESIA PREOPERATIVE EVALUATION CONSULT ST STANDARD TITLE: ANESTHESIOLOGY CONSULT DATE OF NOTE: JUL 04, 2024@13:38 ENTRY DATE: JUL 04, 2024@13:38:33 AUTHOR: JYOTI BARLOW EXP COSIGNER: URGENCY: STATUS: COMPLETED VAUGHN ZHENG Virginie is a 84 year old MALE Pre-operative diagnosis: L UE malignant melanoma Operation proposed: Wide Local Excision of Left Arm Melanoma with [place] Lymph Node Biopsy (plus concurrent case with Plastic Surgery for closure, plan TBD) scheduled for 31 Jul 2024 VITALS Age: 84 Weight: 168.9 lb [76.61 kg] (07/03/2024) Height: 63 in [160.0 cm] (07/03/2024) BMI: 30.0 Blood pressure: 148/90 (07/03/2024) Pulse: 68 (07/03/2024) Temperature: 97.3 F [36.3 C] (07/03/2024) Respiration: 20 (07/03/2024) SpO2: 97% (07/03/2024) Pain: 0 (07/03/2024) ALLERGIES Patient has answered NKA MEDICATIONS Inpatient: 1) CEFAZOLIN 2GM/BAG INJ,SOLN IVPB Q4H GIVE IN O.R. ON: Jul@10:30 Standard doses needed: 2 Active Outpatient Medications (including Supplies): Active Outpatient Medications Status 1) CHLORHEXIDINE GLUCONATE 4% TOP LIQUID APPLY MODERATE ACTIVE AMOUNT TO AFFECTED AREA(S) DIRECTED FOR SKIN DISINFECTION (TOPICAL USE ONLY) AVOID CONTACT WITH EYES. Active Non-VA Medications Status 1) Non-VA AMLODIPINE BESYLATE 5MG TAB 5MG BY MOUTH ONCE ACTIVE A DAY 2) Non-VA CHOLECALCIF 50MCG (D3-2,000UNIT) TAB 2000UNIT ACTIVE BY MOUTH ONCE A DAY 3) Non-VA CYANOCOBALAMIN 1000MCG TAB 1000MCG BY MOUTH ACTIVE ONCE A DAY 4) Non-VA EMPAGLIFLOZIN 5MG/METFORMIN 1000MG TAB 1 ACTIVE TABLET BY MOUTH TWICE A DAY 5) Non-VA LEVOTHYROXINE NA (SYNTHROID) 75MCG TAB 75MCG ACTIVE BY MOUTH EVERY MORNING BEFORE A MEAL 6) Non-VA LISINOPRIL 40MG TAB 40MG BY MOUTH ONCE A DAY ACTIVE 7) Non-VA LORATADINE 10MG TAB 10MG BY MOUTH ONCE A DAY ACTIVE 8) Non-VA METRONIDAZOLE 0.75% TOP GEL SPARINGLY TO ACTIVE AFFECTED AREA(S) TWICE A DAY 9) Non-VA MULTIVITAMIN CAP/TAB 1 TABLET BY MOUTH ONCE A ACTIVE DAY 10) Non-VA OMEPRAZOLE 20MG EC CAP 40MG BY MOUTH EVERY ACTIVE MORNING 11) Non-VA PHENYLEPHRINE HCL 0.25% RTL SUPP 1 SUPPOSITORY ACTIVE RECTALLY TWICE DAILY NEEDED 12) Non-VA PSYLLIUM POWDER,ORAL BY MOUTH ACTIVE 13 Total Medications LABS WBC 8.1 10*3/uL 07/03/2024 11:25 RBC 3.72 L 10*6/uL 07/03/2024 11:25 HGB 11.6 L g/dL 07/03/2024 11:25 HCT 33.8 L % 07/03/2024 11:25 MCV 90.9 fL 07/03/2024 11:25 MCH 31.2 pg 07/03/2024 11:25 MCHC 34.3 g/dL 07/03/2024 11:25 RDW 13.2 % 07/03/2024 11:25 PLT 252 10*3/uL 07/03/2024 11:25 MPV 8.4 fL 07/03/2024 11:25 NEUTROPHILS, AUTO % 75 % 07/03/2024 11:25 LYMPHOCYTES, AUTO % 14 % 07/03/2024 11:25 MONOCYTES, AUTO % 9 % 07/03/2024 11:25 EOSINOPHILS, AUTO % 1 % 07/03/2024 11:25 BASOPHILS, AUTO % 1 % 07/03/2024 11:25 NEUTROPHILS, ABSOLUTE 6.11 10*3/uL 07/03/2024 11:25 LYMPHOCYTES, ABSOLUTE 1.17 10*3/uL 07/03/2024 11:25 MONOCYTES, ABSOLUTE 0.70 10*3/uL 07/03/2024 11:25 EOSINOPHILS, ABSOLUTE 0.09 10*3/uL 07/03/2024 11:25 BASOPHILS, ABSOLUTE 0.04 10*3/uL 07/03/2024 11:25 No INR EO data found No PTT EO data found SODIUM 140 mEq/L 07/03/2024 11:25 POTASSIUM 4.3 mEq/L 07/03/2024 11:25 CHLORIDE 106 mEq/L 07/03/2024 11:25 UREA NITROGEN 15.4 mg/dL 07/03/2024 11:25 CREATININE 1.17 mg/dL 07/03/2024 11:25 CALCIUM 9.0 mg/dL 07/03/2024 11:25 PROTEIN 7.2 g/dL 09/26/2023 11:30 ALBUMIN 4.1 g/dL 09/26/2023 11:30 ALKALINE PHOSPHATASE 84 U/L 09/26/2023 11:30 ALT/SGPT 18 U/L 09/26/2023 11:30 AST/SGOT 21 U/L 09/26/2023 11:30 TOTAL BILIRUBIN 1.0 mg/dL 09/26/2023 11:30 CARBON DIOXIDE 25 mEq/L 07/03/2024 11:25 GLUCOSE 175 H mg/dL 07/03/2024 11:25 EGFR (CKD-EPI 2020) 61.1 07/03/2024 11:25 HGA1C 7.4 H % 09/26/2023 11:30 No URINE DRUG SCREEN EO data found No HIV SCREENING EO data found [facility] Hep C tests in last five years. *No Lab Data Found* DIAGNOSTICS EK Dec NSR w/HR 66 CXR: Impression for CHEST X-RAY, 2 VIEWS, 07/03/24, case [id number] No evidence of pulmonary consolidation, mass or lymphadenopathy. PROBLEM LIST 1) Benign essential hypertension (SNOMED CT 1919694) comment: amlodipine 2.5 mg 2) Dyspepsia 3) Diverticulosis Colon comment: colectomy-colonoscopy done February 2010--due 2019 4) Hemorrhoids 5) Allergic Rhinitis 6) Skin Cancer 7) Benign prostatic hyperplasia 8) B12 deficiency monitoring status (SNOMED CT 446471383) 9) Incisional hernia without mention of obstruction or gangrene (ICD-9-CM 553.21) comment: ventral hernia repair jun 10 2013. 10) Hypothyroidism comment: 50 mcg levothyroxine 11) Impaired glucose tolerance 12) Diabetes mellitus REVIEW OF SYSTEMS/PAST MEDICAL HISTORY RESPIRATORY ?? for: + hx allergic rhinitis - Recent or current SOB - Sleep apnea - Asthma - COPD CARDIAC ?? for: - Recent chest pain + Hypertension-controlled w/meds - Hyperlipidemia - Myocardial infarction - Coronary artery disease - Heart failure - Valvular disease - Atrial fibrillation/flutter - orthopnea - syncope Functional capacity: >4 METs, able to walk 2 city blocks or climb flight of stairs PSYCH/CENTRAL NERVOUS ?? for: - Depression - Anxiety - Post-traumatic stress disorder - Cerebral vascular accident - Seizures ENDOCRINE ?? for: + Diabetes-on oral med + Hypothyroidism-on med RENAL ?? for: - Chronic kidney disease - Nephrolithiasis GI ?? for: + GERD-controlled w/PPI + hx colectomy 2/2 diverticular dz 1980s - Liver disease - GI bleed VASCULAR/HEMATOLOGY/ONCOLOG Y ?? for: + L UE melanoma + Anemia + hx skin CA w/removal - Thrombocytopenia - Bleeding disorders MUSCULOSKELETAL/SKIN/PERIPH ERAL NERVOUS ?? for: - Obesity + Arthritis/Degenerative joint disease-knees - Rheumatoid arthritis - Neuropathy /REPRODUCTIVE ?? for: + Prostate hypertrophy OTHER: + B12 def HABITS Alcohol: none Tobacco: quit decades ago Other drugs: none SURGICAL HISTORY: appy, trino, colectomy, hernia x6-7, skin CA removal Previous anesthesia complications: None Family history of anesthesia complications: None BETA BLOCKERS: none RECOMMENDATIONS/PLAN: 1. Additional labs/imaging/consults needed for anesthesia team: none 2. The patient may proceed as planned and will be reassessed by Anesthesia AM of surgery. 3. NPO after midnight except for small sips of water with meds. 4. Unless directed by procedural team, take morning medications with a sip of water: instructions given by surg team Take usual morning medications the day of surgery with sips of water/no coffee. Patient instructed to hold the following medications on the morning of surgery: Lisinopril. Hold Empagliflozin/Metformin 3 days before surgery. 5. Anticoagulation and antithrombotics per procedural team. 6. If patient uses CPAP, they should bring machine with them. 30 minutes spent reviewing patient's medical records and in phone consultation with this patient. /yesenia/ JYOTI BARLOW PAC Physician Guide [place], Anesthesiology Signed: 07/04/2024 14:09 Receipt Acknowledged By: 07/05/2024 07:40 /yesenia/ Diamond Boyce PA-C General Surgery Physician Guide [place] * AWAITING SIGNATURE * KEIRA HARE REBECCA F [facility]
--- OUTSIDE RECORDS SUMMARY | 2024-07-23 06:11 | XMS_ITS | Encounter Summary ---
Author Name [facility] [place] [facility] [place] Address [address] [place] [address] Care Team Providers [employer] Consultant Name Role Phone ABDULKADIR KRISTINA Primary Care [...] COURTNEY PLUS 1 Jul 24, 2015 [id number] [phone] PAYAM ZHENG PATIENT ANTHEM [employer] [place] FEP PREFERRED PROVIDER ORGANIZAT ION (PPO) FEP STAND COURTNEY PLUS 1 Jul 24, 2015 106 [id number] [phone] PAYAM ZHENG PATIENT ANTHE[place] FEP PREFERRED PROVIDER ORGANIZAT ION (PPO) FEP STAND COURTNEY PLUS 1 Jul 24, 2015 106 [id number] [phone] PAYAM ZHENG PATIENT [employer] FEP RETIREE [id number] Jan 22, 2004 105 [id number] [phone] PAYAM ZHENG PATIENT [place] F[place] PREFERRED PROVIDER ORGANIZAT ION (PPO) FEP STAND COURTNEY PLUS 1 Jul 24, 2015 106 [id number] [phone] PAYAM ZHENG PATIENT [place] FEP PRESCRIPT ION [id number] Jan 22, 2004 [id number] [phone] PAYAM ZHENG PATIENT MEDICARE (WNR) MEDICARE (M) PART A Jan 22, 2004 PART A [id number] PAYAM ZHENG PATIENT MEDICARE (WNR) MEDICARE (M) PART B Jan 22, 2004 PART B [id number] [phone] PAYAM ZHENG PATIENT MEDICARE (WNR) MEDICARE (M) PART A Jan 22, 2004 PART A [id number] PAYAM ZHENG PATIENT MEDICARE (WNR) MEDICARE (M) PART B Jan 22, 2004 PART B [id number] PAYAM ZHENG PATIENT Selected Encounter This section includes the information on record at [place] for the Encounter. Date/Time Encounter Type Encounter Description Reason Provider Source Jun 19, 2024 09:00 AM HEARING AID FITTING/CHECKIN G AUDIOLOGY ICD-10-CM H90.3 Sensorineural hearing loss, bilateral OSVALDO CHAPMAN ICA N IHE Encounter Template Text not used by [place] Assessments - Encounter Diagnoses This section includes the primary and secondary diagnoses documented for the Encounter. Date/Time Primary/Secondary Diagnosis Diagnosis Name Provider Source Jun 19, 2024 10:21 AM PRIMARY Sensorineural hearing loss, bilateral TAMMY CHAPMAN CA N [facility] Plan of Treatment: Future Appointments (+ 6 months) and Future Tests (+/- 45 days) The Plan of Treatment section includes future care activities for the patient from all [place] treatmentfacilities. This section includes future appointments and future orders which are active, pending or scheduled. Future Appointments This section includes appointments that were scheduled to occur 6 months from the date of the Encounter, up to a maximum of 20 appointments. The data comes from all [place] treatment facilities. Appointment Date/Time Appointment Type Appointme nt Facility Name Jun 21, 2024 10:00 AM AMBULATORY - SURGERY [facility] Jul 03, 2024 10:20 AM AMBULATORY - SURGERY . Porsha ERICK [facility] Jul 15, 2024 10:00 AM AMBULATORY - SURGERY . Porsha STERLING [facility] Jul 30, 2024 01:00 PM AMBULATORY - NONE Isaias Hansen [facility] Jul 31, 2024 08:30 AM AMBULATORY - NONE [facility] MARIZOL Hansen [facility] Oct 02, 2024 11:15 AM AMBULATORY - MEDICINE [facility] November 25, 2024 10:45 AM AMBULATORY - MEDICINE [facility] November 27, 2024 10:30 AM AMBULATORY - SURGERY [facility] Porsha [facility] Active, Pending, and Scheduled Orders This section includes a listing of several types of active, pending, and scheduled orders, including clinic medications orders, diagnostic test orders, procedure orders and consult orders; where the start date of the order is 45 days before the date of the Encounter or 45 days after the date of theEncounter. The data comes from all [place] treatment facilities. Test Date/Time Test Type Test Details Facility Name Jul 30, 2024 01:00 PM Imaging - Nuclear Medicine Order NM LYMPH NODE IMAGING- P [facility] Jul 31, 2024 06:00 AM Pharmacy - Clinic Infusion Order [facility] Lab Results: +/- 30 days of the encounter This section includes the Chemistry and Hematology Lab Results on record with [place] for the patient. Radiology Reports and Pathology Reports are provided separately, in subsequent sections. Lab Results This section contains the Chemistry/Hematology Results that were resulted 30 days before or 30 daysafter the date of the Encounter. Date/Time Source Result Type Result - Unit Interpretation Reference Range Comment Jul 03, 2024 11:25 AM [facility] BASIC METABOLIC PANEL Specimen Type: PLASMA Comment: No hemolysis noted. Ordering Provider: JYOTI SIMMONS Report Released Date/Time: Jun 24, 2024 11:11 AM Reporting Lab: [facility] [address] [facility] [id number] Performing Lab: [facility] [address] [facility] [phone] CREATININE 1.17 mg/dL 0.7-1.3 UREA NITROGEN 15.4 mg/dL 9.0-25.0 GLUCOSE 175 mg/dL H 72-99 SODIUM 140 meq/L 136-145 POTASSIUM 4.3 meq/L 3.5-5 CHLORIDE 106 meq/L 98-107 CARBON DIOXIDE 25 meq/L 22-31 CALCIUM 9.0 mg/dL 8.4-10.4 EGFR (CKD-EPI 2020) 61.1 >60 Jul 03, 2024 11:25 AM [facility] CBC Specimen Type: BLOOD No comment entered. Ordering Provider: JYOTI SIMMONS Report Released Date/Time: Jun 24, 2024 11:11 AM Reporting Lab: [facility] [address] [facility] [id number] Performing Lab: [facility] [address] [facility] [address] WBC 8.1 10*3/uL 3.6-11.2 RBC 3.72 10*6/uL [...] and tobacco- related health factors from the [place] facility where the Encounter took place. Current Smoking Status This section includes the most current smoking, or tobacco-related health factor, from the [place] facility where the Encounter took place. Date/Time Current Smoking Status Comment Leonela ity December 07, 2015 03:10 PM QUIT TOBACCO >7 YEARS AGO [facility] Tobacco Use History This section includes a history of the smoking, or tobacco-related health factors, that were collected on or before the date of the Encounter. The data comes from the [place] facility where the Encounter took place. Date/Time Smoking Status/Tobacco Use Comment F acility May 20, 2014 09:22 AM QUIT TOBACCO >7 YEARS AGO [facility] Feb 19, 2013 09:01 AM QUIT TOBACCO >7 YEARS AGO [facility] December 20, 2006 08:06 AM QUIT TOBACCO >7 YEARS AGO [facility] Jun 12, 2006 09:00 AM CURRENT NON-TOBACC O USER-HX OF USE [facility] Jun 12, 2006 09:00 AM TOBACCO TERMINATION STAGE [facility] December 07, 2005 11:12 AM CURRENT NON-TOBACC O USER-HX OF USE [facility] December 07, 2005 11:12 AM TOBACCO TERMINATION STAGE [facility] Mar 21, 2005 01:46 PM CURRENT NON-TOBACC O USER-HX OF USE [facility] Mar 21, 2005 01:46 PM TOBACCO TERMINATION STAGE [facility] Mar 03, 2004 09:58 AM CURRENT NON-TOBACC O USER-HX OF USE [facility] Mar 03, 2004 09:58 AM TOBACCO TERMINATION STAGE [facility] Apr 21, 2003 09:25 AM CURRENT NON-TOBACC O USER-HX OF USE QUIT [address] [place] [address] Apr 21, 2003 09:25 AM CURRENT NON-TOBACC O USER-RECENTLY QUIT quit [address] [place] [address] Apr 21, 2003 09:25 AM TOBACCO USE quit [address] [place] [address] Nov 07, 2002 09:14 AM CURRENT NON-TOBACC O USER-RECENTLY QUIT quit [address] [place] [address] Nov 07, 2002 09:14 AM TOBACCO USE quit [address] [place] [address] Nov 08, 2001 08:09 AM CURRENT NON-TOBACC O USER-HX OF USE quit 20 yrs. ago [facility] Advance Directives: All historical and current Section Date Range: From patient's date of to the date document was created. This section includes ALL of a patient's completed or amended [place] Advance and Rescinded Directives. The entries below indicate that a directive exists for the patient, but an actual copy is not included with this document. The data comes from all [place] facilities. Date Advance Directives Provider Source Mar 26, 2021 ADVANCE DIRECTIVE DISCUSSION Jaqueline LEON [facility] Jun 12, 2014 ADVANCE DIRECTIVE DISCUSSION GÓMEZ ESPINAL [facility] Radiology Reports: +/- 30 days of [...] the Encounter. The data comes from all [place] treatment facilities. Date/Time Radiology Report Provider Source Jul 03, 2024 10:59 AM CHEST X-RAY, 2 VIE WS: VAUGHN ZHENG [id number] -[id number] M Exm Date: JUL 03, 2024@10:59 Req Phys: DIAMOND SCRUGGS Loc: -GEN SURG I CLINIC (Req'g Lo Img Loc: -MAIN RADIOLOGY SUITE Service: [address] [address] (Case [id number] COMPLETE) CHEST X-RAY, 2 VIEWS (RAD Detailed) CPT:37419 Reason for Study: Pre Op Clinical History: Report Status: Verified Date Reported: JUL 04, 2024 Date Verified: JUL 04, 2024 Disabilities Services Officer E-Sig:/ES/KATY MCNEIL MD Report: Case #[id number]. Chest examination. COMPARISON: 05/25/2023. Finding: PA and lateral views of the chest examination shows no evidence of cardiomegaly. Tortuous aorta is seen. No evidence of pulmonary vascular congestion, consolidation or mass. No evidence of pleural effusion or pneumothorax. Impression: No evidence of pulmonary consolidation, mass or lymphadenopathy. Primary Interpreting Staff: KATY MCNEIL MD, Staff Physician - Radiologist (Disabilities Services Officer) /KATY GONZALEZ [facility] Pathology Reports: +/- 30 [...] the Encounter. The data comes from all [place] treatment facilities. Date/Time Pathology Report Provider Source [...] crust scale. The cells stain positive for [place]-1/Melan-A and SOX10 while they are negative for [...] Performing Laboratory: Surgical Pathology Report Performed By: [address]# [id number] [address] [place] [id number] $FTR - - - - - - [...] - - VAUGHN ZHENG STANDARD FORM 515 ID:[id number] SEX:M :1940 AGE: 84 LOC:DERMCON PCP: Kristina Kaiser MD /yesenia/ BERNIE HOUSTON MD DERMATOLOGY & DERMATOPATHOLOGY Signed: 06/07/2024 12:01 BERNIE HOUSTON [facility] Encounter Notes: All associated encounter notes This section contains the clinical notes associated to the Encounter. Date/Time Encounter Note(s) Provider Source Jun 19, 2024 07:32 AM AUDIOLOGY E & M NO TE: LOCAL TITLE: AUDIO EVALS STL STANDARD TITLE: AUDIOLOGY E & M NOTE DATE OF NOTE: JUN 19, 2024@07:32 ENTRY DATE: JUN 19, 2024@07:32:35 AUTHOR: CARLY CHAPMAN COSIGNER: URGENCY: STATUS: COMPLETED SUBJECT: Audio AUDIO EVALS STL Has ADDENDA Purpose of appt: audio [x] patient initiated visit [] provider initiated visit Case history: Otoscopic evaluation normal AU. TM's visible AU. Pt's main complaint is bilateral hearing loss. Reported concern for increased hearing loss, noting more increases to volume of hearing aids and increased difficulty with clarity. Reported constant, bilateral tinnitus. Pt denied pain, pressure, dizziness, otosurgery or recent ear infections. Last eval 06/01/2020. RESULTS: Right Ear- Audiometry (air and/or bone conduction): within normal limits/mild 250-500 Hz sloping to severe SNHL 2981-4860 Hz SRT: 35 dB WRS: 80% (last eval 92%) Tympanogram: type A, WNL Reflexes: ipsi: present 500-1000 Hz only contra: present 500-1000 Hz only Left Ear- Audiometry (air and/or bone conduction): within normal limits/mild 250-1000 Hz sloping to moderately severe/severe SNHL 5974-0987 Hz. SRT: 35 dB WRS: 76% (last eval 92%) Tympanogram: type A, WNL Reflexes: ipsi: present 500-2000 Hz only contra: present 500-1000 Hz only Bilateral SNHL. Thresholds stable bilaterally relative to last eval, but noted some deterioration to WRS bilaterally. Pt is a candidate for hearing aids. Counseled pt regarding degree of loss. Discussed full-time commitment and realistic expectations of hearing aids. HAE to follow. HEARING AID CHECK PERFORMED TODAY: Pt has the following [facility] issued hearing aids: 06/25/20 TERESSA JUNIORO P90-RT YA R [id number] 06/25/20 TERESSA PHONAK YARELISEO P90-RT YA L [id number] Pt forgot aids at home for today's appt. Per [facility] order form, worn with skeleton lock cShells. Reported the wires seem to cut into his ears and noted the left aid is not amplifying as much as the right. Pt reported he will be returning to [place] location on Monday and will plan to drop off hearing aids for clean/check and updated programming. 07/21/16 AUDIOLOGY PURE 7PX YA R [id number] 07/21/16 AUDIOLOGY PURE 7PX YA L [id number] Back-up aids brought to appt today. Worn with helix lock earmolds. Pt reported the left battery door is damaged, but still holds battery. Cleaned and checked aids. Listening check revealed good amplification. Datalogging revealed average of 7 hrs/day bilaterally. Updated programming to today's hearing test. Pt confirmed comfort with volume and balance between ears. Based on age of aids, history of consistent orders in ROES, history of consistent use of aids from previous datalogging, and pt report of consistent use of aids, will proceed with HAE. Hearing Aid Exam performed today: [] Monaural [x] Binaural Otoscopy reveals clear canals. Appropriate evaluation of patient leads to hearing aid order. Ear mold impression(s) taken. Hearing aid will be ordered and appointment requested for fitting. [] patient initiated visit [x] provider initiated visit [] new user [x] experienced user- Pt wore 2019 Phonak YA's and 2015 Signia YA's. Discussed aids with pt to include the following: STYLE: Showed pt various demo aids in clinic from canal through YA style. Pt chose canal style aids to avoid conflict with glasses. Showed pt both canal and ITE style aids. Pt would prefer to trial canal aids. Will order canal locks for retention. Pt inquired about removal lines, will order with removal filaments. BATTERY TYPE: Discussed rechargeable vs disposable batteries. Pt chose rechargeable. COLOR: beige CONNECTIVITY: Pt is interested in BT connectivity to phone. Pt has a Prompt.ly A53 5G running Android version 14. Verified compatibility for one-way audio on Alysha website. MATRIX: P After discussion, pt and clinician chose: Alysha Garza programmed to auto, VC, BT to Android. Recommendations: 1. HAF sched. /yesenia/ Lars TIAN Staff [employer] Equipment Operator, Surgery Service Signed: 06/19/2024 10:22 06/28/2024 ADDENDUM STATUS: COMPLETED Pre-programmed hearing aid for upcoming fitting /yesenia/ DAVE SANDOVAL Parts Product Analyst, HPT Signed: 06/28/2024 14:30 /yesenia/ Lars LEIVA Staff [employer] Equipment Operator, Surgery Service Cosigned: 06/28/2024 14:31 CARLY CHAPMAN [facility]
--- OUTSIDE RECORDS SUMMARY | 2024-07-23 06:11 | XMS_ITS | Encounter Summary ---
Author Name [facility] [place] [facility] [place] [facility] [place] Address [address] [place] [address] Care Team Providers Care Sectional Belt Mold Assembler Name Role Phone PANCHAL, KRISTINA Primary Care [...] COURTNEY PLUS 1 Jul 24, 2015 106 [id number] [phone] PAYAM ZHENG PATIENT ANTHEM [employer] FEP PREFERRED PROVIDER ORGANIZAT ION (PPO) FEP STAND COURTNEY PLUS 1 Jul 24, 2015 106 [id number] [phone] PAYAM ZHENG PATIENT ANTHEM [place] F[place] PREFERRED PROVIDER ORGANIZAT ION (PPO) FEP STAND COURTNEY PLUS 1 Jul 24, 2015 106 [id number] [phone] PAYAM ZHENG PATIENT BCBS FEP RETIREE [id number] Jan 22, 2004 105 [id number] PAYAM ZHENG PATIENT [place] F[place] PREFERRED PROVIDER ORGANIZAT ION (PPO) FEP STAND COURTNEY PLUS 1 Jul 24, 2015 106 [id number] [phone] PAYAM ZHENG PATIENT [place] FEP PRESCRIPT ION [id number] Jan 22, 2004 [id number] PAYAM ZHENG PATIENT MEDICARE (WNR) MEDICARE (M) PART A Jan 22, 2004 PART A [id number] PAYAM ZHENG PATIENT MEDICARE (WNR) MEDICARE (M) PART B Jan 22, 2004 PART B [id number] [phone] PAYAM ZHENG PATIENT MEDICARE (WNR) MEDICARE (M) PART A Jan 22, 2004 PART A [id number] PAYAM ZHENG PATIENT MEDICARE (WNR) MEDICARE (M) PART B Jan 22, 2004 PART B [id number] [phone] PAYAM ZHENG PATIENT Selected Encounter This section includes the information on record at [place] for the Encounter. Date/Time Encounter Type Encounter Description Reason Provider Source Jun 07, 2024 12:01 PM Outpatient Encounter EVENT (HISTORICAL) BERNIE HOUSTON Encounter Template Text not used by [place] Plan of Treatment: Future Appointments (+ 6 months) and Future Tests (+/- 45 days) The Plan of Treatment section includes future care activities for the patient from all [place] treatmentfacilities. This section includes future appointments and future orders which are active, pending or scheduled. Future Appointments This section includes appointments that were scheduled to occur 6 months from the date of the Encounter, up to a maximum of 20 appointments. The data comes from all [place] treatment facilities. Appointment Date/Time Appointment Type Appointme nt Facility Name Jun 19, 2024 09:00 AM AMBULATORY - SURGERY [facility] Jun 21, 2024 10:00 AM AMBULATORY - SUR[facility]ERY [facility] Jul 03, 2024 10:20 AM AMBULATORY - SUR[facility]ERY [facility] Jul 15, 2024 10:00 AM AMBULATORY - SUR[facility]ERY [facility] Jul 30, 2024 01:00 PM AM[facility]ULATORY - NONE [facility] Jul 31, 2024 08:30 AM AMBULATORY - NONE [facility] Oct 02, 2024 11:15 AM AMBULATORY - MEDICINE [facility] November 25, 2024 10:45 AM AMBULATORY - MEDICINE [facility] November 27, 2024 10:30 AM AMBULATORY - SURGERY [facility] Lab Results: +/- 30 days of the encounter This section includes the Chemistry and Hematology Lab Results on record with [place] for the patient. Radiology Reports and Pathology Reports are provided separately, in subsequent sections. Lab Results This section contains the Chemistry/Hematology Results that were resulted 30 days before or 30 daysafter the date of the Encounter. Date/Time Source Result Type Result - Unit Interpretation Reference Range Comment Jul 03, 2024 11:25 AM [facility] BASIC METABOLIC PANEL Specimen Type: PLASMA Comment: No hemolysis noted. Ordering Provider: JYOTI SIMMONS Report Released Date/Time: Jun 24, 2024 11:11 AM Reporting Lab: [facility] [address] [facility] [address] Performing Lab: [address] [address] CREATININE 1.17 mg/dL 0.7-1.3 UREA NITROGEN 15.4 mg/dL 9.0-25.0 GLUCOSE 175 mg/dL H 72-99 SODIUM 140 meq/L 136-145 POTASSIUM 4.3 meq/L 3.5-5 CHLORIDE 106 meq/L 98-107 CARBON DIOXIDE 25 meq/L 22-31 CALCIUM 9.0 mg/dL 8.4-10.4 EGFR (CKD-EPI 2020) 61.1 >60 Jul 03, 2024 11:25 AM [facility] CBC Specimen Type: BLOOD No comment entered. Ordering Provider: JYOTI SIMMONS Report Released Date/Time: Jun 24, 2024 11:11 AM Reporting Lab: [place] [id number] [facility] [address] Performing Lab: [address] [address] WBC 8.1 10*3/uL 3.6-11.2 RBC 3.72 10*6/uL [...] and tobacco- related health factors from the [place] facility where the Encounter took place. Current Smoking Status This section includes the most current smoking, or tobacco-related health factor, from the [place] facility where the Encounter took place. Date/Time Current Smoking Status Comment Leonela franco December 07, 2015 03:10 PM QUIT TOBACCO >7 YEARS AGO [facility] Tobacco Use History This section includes a history of the smoking, or tobacco-related health factors, that were collected on or before the date of the Encounter. The data comes from the [place] facility where the Encounter took place. Date/Time Smoking Status/Tobacco Use Comment F acility May 20, 2014 09:22 AM QUIT TOBACCO >7 YEARS AGO [facility] Feb 19, 2013 09:01 AM QUIT TOBACCO >7 YEARS AGO [facility] December 20, 2006 08:06 AM QUIT TOBACCO >7 YEARS AGO [facility] Jun 12, 2006 09:00 AM CURRENT NON-TOBACC O USER-HX OF USE [facility] Jun 12, 2006 09:00 AM TOBACCO TERMINATION STAGE [facility] December 07, 2005 11:12 AM CURRENT NON-TOBACC O USER-HX OF USE [facility] December 07, 2005 11:12 AM TOBACCO TERMINATION STAGE [facility] Mar 21, 2005 01:46 PM CURRENT NON-TOBACC O USER-HX OF USE [facility] Mar 21, 2005 01:46 PM TOBACCO TERMINATION STAGE [facility] Mar 03, 2004 09:58 AM CURRENT NON-TOBACC O USER-HX OF USE [facility] Mar 03, 2004 09:58 AM TOBACCO TERMINATION [facility] Apr 21, 2003 09:25 AM CURRENT NON-TOBACC O USER-HX OF USE QUIT [address] [place] [address] Apr 21, 2003 09:25 AM CURRENT NON-TOBACC O USER-RECENTLY QUIT quit [address] [place] [address] Apr 21, 2003 09:25 AM TOBACCO USE quit [address] [place] [address] Nov 07, 2002 09:14 AM CURRENT NON-TOBACC O USER-RECENTLY QUIT quit [address] [place] [address] Nov 07, 2002 09:14 AM TOBACCO USE quit [address] [place] [address] Nov 08, 2001 08:09 AM CURRENT NON-TOBACC O USER-HX OF USE quit 20 yrs. ago [facility] Advance Directives: All historical and current Section Date Range: From patient's date of to the date document was created. This section includes ALL of a patient's completed or amended [place] Advance and Rescinded Directives. The entries below indicate that a directive exists for the patient, but an actual copy is not included with this document. The data comes from all [place] facilities. Date Advance Directives Provider Source Mar 26, 2021 ADVANCE DIRECTIVE DISCUSSION Jaqueline LEON [facility] Jun 12, 2014 ADVANCE DIRECTIVE DISCUSSION GÓMEZ ESPINAL [facility] Radiology Reports: +/- 30 days of the [...] the Encounter. The data comes from all [facility]. Date/Time Radiology Report Provider Source Jul 03, 2024 10:59 AM CHEST X-RAY, 2 VIE WS: VAUGHN ZHENG [id number] -1940 M Exm Date: JUL 03, 2024@10:59 Req Phys: DIAMOND SCRUGGS Loc: -GEN SURG I CLINIC (Req'g Lo Img Loc: -MAIN RADIOLOGY SUITE Service: [address] [address] (Case [id number] COMPLETE) CHEST X-RAY, 2 VIEWS (RAD Detailed) CPT:14103 Reason for Study: Pre Op Clinical History: Report Status: Verified Date Reported: JUL 04, 2024 Date Verified: JUL 04, 2024 Cargo Agent E-Sig:/ES/KATY MCNEIL MD Report: Case #[id number]. Chest examination. COMPARISON: 05/25/2023. Finding: PA and lateral views of the chest examination shows no evidence of cardiomegaly. Tortuous aorta is seen. No evidence of pulmonary vascular congestion, consolidation or mass. No evidence of pleural effusion or pneumothorax. Impression: No evidence of pulmonary consolidation, mass or lymphadenopathy. Primary Interpreting Staff: KATY MCNEIL MD, Staff Physician - Radiologist (Cargo Agent) /KATY GONZALEZ [facility] Pathology Reports: +/- 30 days of [...] the Encounter. The data comes from all [place] treatment facilities. Date/Time Pathology Report Provider Source Jun 07, 2024 12:01 PM LR SURGICAL PATHOL OGY REPORT: LOCAL TITLE: LR SURGICAL PATHOLOGY REPORT STANDARD TITLE: PATHOLOGY PROCEDURE NOTE DATE OF NOTE: JUN 07, 2024@12:01:59 ENTRY DATE: JUN 07, 2024@12:01:59 AUTHOR: BERNIE HOUSTONIGNER: URGENCY: STATUS: COMPLETED $APHDR - - - [...] crust scale. The cells stain positive for [place]-1/Melan-A and SOX10 while they are negative for [...] Performing Laboratory: Surgical Pathology Report Performed By: [address]# [id number] [address] [place] [phone] $FTR - - - - - - [...] - - VAUGHN ZHENG STANDARD FORM 515 ID:[id number] SEX:M :1940 AGE: 84 LOC:DERMCON PCP: Kristina Panchal MD /joss HOUSTON MD DERMATOLOGY & DERMATOPATHOLOGY Signed: 06/07/2024 12:01 BERNIE HOUSTON [facility] Encounter Notes: All associated encounter notes This section contains the clinical notes associated to the Encounter. Date/Time Encounter Note(s) Provider Source Jun 07, 2024 12:01 PM PATHOLOGY PROCEDUR E NOTE: LOCAL TITLE: LR SURGICAL PATHOLOGY REPORT STANDARD TITLE: PATHOLOGY PROCEDURE NOTE DATE OF NOTE: JUN 07, 2024@12:01:59 ENTRY DATE: JUN 07, 2024@12:01:59 AUTHOR: BERNIE HOUSTON EXP COSIGNER: URGENCY: STATUS: COMPLETED $APHDR - - [...] crust scale. The cells stain positive for [place]-1/Melan-A and SOX10 while they are negative for [...] Performing Laboratory: Surgical Pathology Report Performed By: [facility] CLIA# [id number] [address] [address] $FTR - - - - - - [...] - - VAUGHN ZHENG STANDARD FORM 515 ID:[id number] SEX:M :1940 AGE: 84 LOC:DERMCON PCP: Kristina Panchal MD /yesenia/ BERNIE HOUSTON MD DERMATOLOGY & DERMATOPATHOLOGY Signed: 06/07/2024 12:01 BERNIE HOUSTON [facility]
--- OUTSIDE RECORDS SUMMARY | 2024-07-23 06:11 | XMS_ITS | Encounter Summary ---
Author Name [facility] [place] [facility] [place] Address [address] [place] [address] Care Team Providers Care Wet Pan Mixer Name Role Phone KRISTINA PANCHAL Primary Care [...] COURTNEY PLUS 1 Jul 24, 2015 106 [id number] [phone] PAYAM GONZALEZ PATIENT ANTHE[place] [employer] FEP PREFERRED PROVIDER ORGANIZAT ION (PPO) FEP STAND COURTNEY PLUS 1 Jul 24, 2015 106 [id number] [phone] PAYAM GONZALEZ PATIENT [place] PREFERRED PROVIDER ORGANIZAT ION (PPO) FEP STAND COURTNEY PLUS 1 Jul 24, 2015 106 [id number] [phone] PAYAM GONZALEZ PATIENT [employer]BS FEP RETIREE [id number] Jan 22, 2004 105 [id number] PAYAM GONZALEZ PATIENT [place] F[place] PREFERRED PROVIDER ORGANIZAT ION (PPO) FEP STAND COURTNEY PLUS 1 Jul 24, 2015 106 [id number] [phone] PAYAM GONZALEZ PATIENT [place] FEP PRESCRIPT ION [id number] Jan 22, 2004 [id number] PAYAM GONZALEZ PATIENT MEDICARE (WNR) MEDICARE (M) PART A Jan 22, 2004 PART A [id number] [phone] PAYAM GONZALEZ PATIENT MEDICARE (WNR) MEDICARE (M) PART B Jan 22, 2004 PART B [id number] [phone] PAYAM GONZALEZ PATIENT MEDICARE (WNR) MEDICARE (M) PART A Jan 22, 2004 PART A [id number] PAYAM GONZALEZ PATIENT MEDICARE (WNR) MEDICARE (M) PART B Jan 22, 2004 PART B [id number] PAYAM GONZALEZ PATIENT Selected Encounter This section includes the information on record at [place] for the Encounter. Date/Time Encounter Type Encounter Description Reason Provider Source Jul 01, 2024 04:31 PM Outpatient Encounter DERMATOLOGY BRIGITTE SHIRLEY Encounter Template Text not used by [place] Plan of Treatment: Future Appointments (+ 6 months) and Future Tests (+/- 45 days) The Plan of Treatment section includes future care activities for the patient from all [place] treatmentfacilities. This section includes future appointments and [...] AM AMBULATORY - SURGERY [facility] Jul 15, 2024 10:00 AM AMBULATORY - SURGERY [facility] Jul 30, 2024 01:00 PM AMBULATORY - NONE [facility] Jul 31, 2024 08:30 AM AMBULATORY - NONE [facility] Oct 02, 2024 11:15 AM AMBULATORY - MEDICINE [facility] November 25, 2024 10:45 AM AMBULATORY - MEDICINE [facility] November 27, 2024 10:30 AM AMBULATORY - SURGERY [facility] Active, Pending, and Scheduled Orders This section includes a listing of several types of active, pending, and scheduled orders, including clinic medications orders, diagnostic test orders, procedure orders and consult orders; where the start date of the order is 45 days before the date of the Encounter or 45 days after the date of theEncounter. The data comes from all [place] treatment facilities. Test Date/Time Test Type Test Details Facility Name Jul 30, 2024 01:00 PM Imaging - Nuclear Medicine Order [place] LYMPH NODE IMAGING- P [facility] Jul 31, 2024 06:00 AM Pharmacy - Clinic Infusion Order [facility] Lab Results: +/- 30 days of [...] Range Comment Jul 03, 2024 11:25 AM [facility] BASIC METABOLIC PANEL Specimen Type: PLASMA Comment: No hemolysis noted. Ordering Provider: JYOTI SIMMONS Report Released Date/Time: Jun 24, 2024 11:11 AM Reporting Lab: [address] [address] Performing Lab: [address] [address] CREATININE 1.17 mg/dL 0.7-1.3 UREA NITROGEN 15.4 mg/dL 9.0-25.0 GLUCOSE 175 mg/dL H 72-99 SODIUM 140 meq/L 136-145 POTASSIUM 4.3 meq/L 3.5-5 CHLORIDE 106 meq/L 98-107 CARBON DIOXIDE 25 meq/L 22-31 CALCIUM 9.0 mg/dL 8.4-10.4 EGFR (CKD-EPI 2020) 61.1 >60 Jul 03, 2024 11:25 AM [facility] CBC Specimen Type: BLOOD No comment entered. Ordering Provider: JYOTI SIMMONS Report Released Date/Time: Jun 24, 2024 11:11 AM Reporting Lab: [facility] [address] [facility] [address] Performing Lab: [facility] [address] [facility] [address] WBC 8.1 10*3/uL 3.6-11.2 RBC 3.72 10*6/uL [...] CURRENT NON-TOBACC O USER-HX OF USE QUIT [address] [place] [address] Apr 21, 2003 09:25 AM CURRENT NON-TOBACC O USER-RECENTLY QUIT quit [address] [place] [address] Apr 21, 2003 09:25 AM TOBACCO USE quit [address] [place] [address] Nov 07, 2002 09:14 AM CURRENT NON-TOBACC O USER-RECENTLY QUIT quit [address] [place] [address] Nov 07, 2002 09:14 AM TOBACCO USE quit [address] [place] [address] Nov 08, 2001 08:09 AM CURRENT NON-TOBACC [...] 2021 ADVANCE DIRECTIVE DISCUSSION Jaqueline LEON [facility] Jun 12, 2014 ADVANCE DIRECTIVE DISCUSSION GÓMEZ ESPINAL [facility] Radiology Reports: +/- 30 days of [...] AM CHEST X-RAY, 2 VIE WS: VAUGHN GONZALEZ Virginie [id number] -1940 M Exm Date: JUL 03, 2024@10:59 Req Phys: DIAMOND BOYCE Loc: -GEN SURG I CLINIC (Req'g Lo Img Loc: -MAIN RADIOLOGY SUITE Service: [facility] [address] [place] [address] (Case [id number] COMPLETE) CHEST X-RAY, 2 VIEWS (RAD Detailed) CPT:60221 Reason for Study: Pre Op Clinical History: Report Status: Verified Date Reported: JUL 04, 2024 Date Verified: JUL 04, 2024 Lacquer Coater E-Sig:/ES/KATY MCNEIL MD Report: Case #[id number]. Chest examination. COMPARISON: 05/25/2023. Finding: PA and lateral views of the chest examination shows no evidence of cardiomegaly. Tortuous aorta is seen. No evidence of pulmonary vascular congestion, consolidation or mass. No evidence of pleural effusion or pneumothorax. Impression: No evidence of pulmonary consolidation, mass or lymphadenopathy. Primary Interpreting Staff: KATY MCNEIL MD, Staff Physician - Radiologist (Lacquer Coater) /KATY GONZALEZ [facility] Pathology Reports: +/- 30 days of [...] crust scale. 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 /joss HOUSTON MD DERMATOLOGY & DERMATOPATHOLOGY Signed Jun 07, 2024@12:01 Performing Laboratory: Surgical Pathology Report Performed By: [facility] [address] [place] [address] CLIA# [id number] [address] [place] [id number] $FTR - - - - - - [...] - - - - - - VAUGHN GONZALEZ STANDARD FORM 515 ID:[id number] SEX:M :1940 AGE: 84 LOC:DERMCON PCP: Kristina Panchal MD /joss HOUSTON MD DERMATOLOGY & DERMATOPATHOLOGY Signed: 06/07/2024 12:01 BERNIE HOUSTON [facility] Encounter Notes: All associated encounter notes This section contains the clinical notes associated to the Encounter. Date/Time Encounter Note(s) Provider Source Jul 02, 2024 11:59 AM ADDENDUM: LOCAL TITLE: Addendum STANDARD TITLE: ADDENDUM DATE OF NOTE: JUL 02, 2024@11:59:27 ENTRY DATE: JUL 02, 2024@11:59:28 AUTHOR: ALEX GARDNER EXP COSIGNER: URGENCY: STATUS: COMPLETED Spoke with patient. Advised him to apply plain Vaseline 1-2 times daily to face while redness/irritation is resolving. Discussed that this should start improving within the next few days but may take closer to 2 weeks to fully resolve. Advised to hold off on treating forearms for now - we will likely still recommend Efudex to forearms in the future but can wait until after surgery/healing process for MIS in this area. /yesenia/ ALEX GARDNER MD Dermatology Attending Physician Signed: 07/02/2024 12:01 Receipt Acknowledged By: 07/02/2024 13:38 /yesenia/ BRIGITTE SHIRLEY REGISTERED NURSE --- Original Document --- 07/01/24 DERMATOLOGY SECURE MESSAGING: ------Original Message ----- Sent: 07/01/2024 03:53 PM ET From: VAUGHN GONZALEZ To: ST, DERMATOLOGY, SPECIALTY MEDICINE @ Subject: General:After Efudex(Fluorouracil) Application treatment My name is Vaughn VirginieIsaias Gonzalez, Last 4 is 8108. I was in the Dermatology clinic on [address] Boyce a resident MD. 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 He also prescribed EFUDEX for my head and arms. two weeks on head and two weeks on arms. I have completed the two weeks treatment on head as of today . my face and ears and head are red, and itch and burn. How long does this go on? Now on the arms--Do I still apply the EFUDEX and do the treatment when the General surgeon and plastic surgeon have set a tentative date for 07/31/24? Please call me at [phone] or send message here. Thank you Vaughn Gonzalez ------Original Message ----- Sent: 07/01/2024 04:31 PM ET From: BRIGITTE SHIRLEY To: VAUGHN GONZALEZ Subject: General:After Efudex(Fluorouracil) Application treatment Forwarding to your Dermatology provider for input, a return clinic visit may be required. /yesenia/ BRIGITTE SHIRLEY REGISTERED NURSE Signed: 07/01/2024 15:31 Receipt Acknowledged By: * AWAITING SIGNATURE * LIU ANDERSON 07/02/2024 12:02 /eysenia/ ALEX GARDNER MD Dermatology Attending Physician 07/02/2024 ADDENDUM STATUS: COMPLETED Tried calling patient, a household member answered the phone and stated patient is not home but should be back around 11 AM. I will try calling him again at that time. /yesenia/ ALEX GARDNER MD Dermatology Attending Physician Signed: 07/02/2024 09:38 ALEX GARDNER [facility] Jul 01, 2024 04:31 PM DERMATOLOGY SECURE MESSAGING: LOCAL TITLE: DERMATOLOGY SECURE MESSAGING STANDARD TITLE: DERMATOLOGY SECURE MESSAGING DATE OF NOTE: JUL 01, 2024@16:31 ENTRY DATE: JUL 01, 2024@15:31:24 AUTHOR: BRIGITTE SHIRLEY EXP COSIGNER: URGENCY: STATUS: COMPLETED DERMATOLOGY SECURE MESSAGING Has ADDENDA ------Original Message ----- Sent: 07/01/2024 03:53 PM ET From: VAUGHN GONZALEZ To: ST, DERMATOLOGY, SPECIALTY MEDICINE @ Subject: General:After Efudex(Fluorouracil) Application treatment My name is Vaughn RachelIsaias Gonzalez, Last 4 is 0717. I was in the Dermatology clinic on [address] Boyce a resident MD. 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 He also prescribed EFUDEX for my head and arms. two weeks on head and two weeks on arms. I have completed the two weeks treatment on head as of today . my face and ears and head are red, and itch and burn. How long does this go on? Now on the arms--Do I still apply the EFUDEX and do the treatment when the General surgeon and plastic surgeon have set a tentative date for 07/31/24? Please call me at [phone] or send message here. Thank you Vaughn Gonzalez ------Original Message ----- Sent: 07/01/2024 04:31 PM ET From: BRIGITTE SHIRLEY To: VAUGHN GONZALEZ Subject: General:After Efudex(Fluorouracil) Application treatment Forwarding to your Dermatology provider for input, a return clinic visit may be required. /yesenia/ BRIGITTE SHIRLEY REGISTERED NURSE Signed: 07/01/2024 15:31 Receipt Acknowledged By: 07/03/2024 11:53 /yesenia/ LIU ANDERSON MD PHD vice president global advertising sales 07/02/2024 12:02 /yesenia/ ALEX GARDNER MD Dermatology Attending Physician 07/02/2024 ADDENDUM STATUS: COMPLETED Tried calling patient, a household member answered the phone and stated patient is not home but should be back around 11 AM. I will try calling him again at that time. /yesenia/ ALEX GARDNER MD Dermatology Attending Physician Signed: 07/02/2024 09:38 07/02/2024 ADDENDUM STATUS: COMPLETED Spoke with patient. Advised him to apply plain Vaseline 1-2 times daily to face while redness/irritation is resolving. Discussed that this should start improving within the next few days but may take closer to 2 weeks to fully resolve. Advised to hold off on treating forearms for now - we will likely still recommend Efudex to forearms in the future but can wait until after surgery/healing process for MIS in this area. /yesenia/ ALEX GARDNER MD Dermatology Attending Physician Signed: 07/02/2024 12:01 Receipt Acknowledged By: 07/02/2024 13:38 /yesenia/ BRIGITTE SHIRLEY REGISTERED NURSE BRIGITTE SHIRLEY [facility]
--- OUTSIDE RECORDS SUMMARY | 2024-07-23 06:11 | XMS_ITS | Encounter Summary ---
Author Name [facility] [place] [facility] [place] [facility] [place] [facility] [place] Address [address] [place] [address] Care Team Providers Care Lay Out Maker Name Role Phone KRISTINA PANCHAL Primary Care [...] COURTNEY PLUS 1 Jul 24, 2015 106 [id number] [phone] PAYAM ZHENG PATIENT ANTHEM [employer] [place] FEP PREFERRED PROVIDER ORGANIZAT ION (PPO) FEP STAND COURTNEY PLUS 1 Jul 24, 2015 106 [id number] [phone] PAYAM ZHENG PATIENT AN[place] F[place] PREFERRED PROVIDER ORGANIZAT ION (PPO) FEP STAND COURTNEY PLUS 1 Jul 24, 2015 106 [id number] [phone] PAYAM ZHENG PATIENT [employer] FEP RETIREE [id number] Jan 22, 2004 105 [id number] PAYAM ZHENG PATIENT [place] F[place] PREFERRED PROVIDER ORGANIZAT ION (PPO) FEP STAND COURTNEY PLUS 1 Jul 24, 2015 106 [id number] [phone] PAYAM ZHENG PATIENT [place] F[place] PRESCRIPT ION [id number] Jan 22, 2004 [id number] PAYAM ZHENG PATIENT MEDICARE (WNR) MEDICARE (M) PART A Jan 22, 2004 PART A [id number] PAYAM ZHENG PATIENT MEDICARE (WNR) MEDICARE (M) PART B Jan 22, 2004 PART B [id number] PAYAM ZHENG PATIENT MEDICARE (WNR) MEDICARE (M) PART A Jan 22, 2004 PART A [id number] [phone] PAYAM ZHENG PATIENT MEDICARE (WNR) MEDICARE (M) PART B Jan 22, 2004 PART B [id number] [phone] PAYAM ZHENG PATIENT Selected Encounter This section includes the information on record at [place] for the Encounter. Date/Time Encounter Type Encounter Description Reason Provider Source Jul 03, 2024 10:20 AM OFFICE O/P NEW LOW 30 MIN PLASTIC SURGERY ICD-10-CM C43.9 Malignant melanoma of skin, unspecified SHERMAN WEATHERS IHGerardo Encounter Template Text not used by [place] Assessments - Encounter Diagnoses This section includes the primary and secondary diagnoses documented for the Encounter. Date/Time Primary/Secondary Diagnosis Diagnosis Name Provider Source Jul 04, 2024 09:26 PM PRIMARY Malignant melanoma of skin, unspecified CHRISTINE BOYCE [facility] Plan of Treatment: Future Appointments (+ 6 months) and Future Tests (+/- 45 days) The Plan of Treatment section includes future care activities for the patient from all [place] treatmentfacilities. This section includes future appointments and future orders which are active, pending or scheduled. Future Appointments This section includes appointments that were scheduled to occur 6 months from the date of the Encounter, up to a maximum of 20 appointments. The data comes from all [place] treatment facilities. Appointment Date/Time Appointment Type Appointme nt Facility Name Jul 15, 2024 10:00 AM AMBULATORY - SURGERY [facility] Jul 30, 2024 01:00 PM AMBULATORY - NONE [facility] Jul 31, 2024 08:30 AM AMBULATORY - NONE [facility] Oct 02, 2024 11:15 AM AMBULATORY - MEDICINE [facility] November 25, 2024 10:45 AM AMBULATORY - MEDICINE [facility] November 27, 2024 10:30 AM AMBULATORY - SURGERY [facility] Active, Pending, and Scheduled Orders This section includes a listing of several types of active, pending, and scheduled orders, including clinic medications orders, diagnostic test orders, procedure orders and consult orders; where the start date of the order is 45 days before the date of the Encounter or 45 days after the date of theEncounter. The data comes from all [place] treatment facilities. Test Date/Time Test Type Test Details Facility Name Jul 30, 2024 01:00 PM Imaging - Nuclear Medicine Order NM LYMPH NODE IMAGING- P [facility] Jul 31, 2024 06:00 AM Pharmacy - Clinic Infusion Order [facility] Lab Results: +/- 30 days of the encounter This section includes the Chemistry and Hematology Lab Results on record with [place] for the patient. Radiology Reports and Pathology Reports are provided separately, in subsequent sections. Lab Results This section contains the Chemistry/Hematology Results that were resulted 30 days before or 30 daysafter the date of the Encounter. Date/Time Source Result Type Result - Unit Interpretation Reference Range Comment Jul 03, 2024 11:25 AM [facility] BASIC METABOLIC PANEL Specimen Type: PLASMA Comment: No hemolysis noted. Ordering Provider: JYOTI SIMMONS Report Released Date/Time: Jun 24, 2024 11:11 AM Reporting Lab: [facility] [address] [facility] [id number] Performing Lab: [place] [address] [facility] [address] CREATININE 1.17 mg/dL 0.7-1.3 UREA NITROGEN 15.4 mg/dL 9.0-25.0 GLUCOSE 175 mg/dL H 72-99 SODIUM 140 meq/L 136-145 POTASSIUM 4.3 meq/L 3.5-5 CHLORIDE 106 meq/L 98-107 CARBON DIOXIDE 25 meq/L 22-31 CALCIUM 9.0 mg/dL 8.4-10.4 EGFR (CKD-EPI 2020) 61.1 >60 Jul 03, 2024 11:25 AM [facility] CBC Specimen Type: BLOOD No comment entered. Ordering Provider: JYOTI SIMMONS Report Released Date/Time: Jun 24, 2024 11:11 AM Reporting Lab: [facility] [address] [facility] [phone] Performing Lab: [facility] [address] [facility] [address] WBC 8.1 10*3/uL 3.6-11.2 RBC 3.72 10*6/uL [...] 10*3/uL 0.00-0.60 BASOPHILS, ABSOLUTE 0.04 10*3/uL 0.00-0.20 Vital Signs: All taken on the encounter date This section contains inpatient and outpatient Vital Signs collected on the date of the Encounter. Date/Time Temperature Pulse Blood Pressure Respiratory Rate SP02 Pain Height Weight Body Mass Index Source Jul 03, 2024 10:26 AM 97.3 68 148/90 20 97 0 63 168.9 30 [facility] Social History: Smoking Status (Most current) and Tobacco Use (All prior to encounter date) This section includes the most current, and the historical, smoking and tobacco- related health factors from the [place] facility where the Encounter took place. Current Smoking Status This section includes the most current smoking, or tobacco-related health factor, from the [place] facility where the Encounter took place. Date/Time Current Smoking Status Comment Leonela franco December 07, 2015 03:10 PM QUIT TOBACCO >7 YEARS AGO [facility] Tobacco Use History This section includes a history of the smoking, or tobacco-related health factors, that were collected on or before the date of the Encounter. The data comes from the [place] facility where the Encounter took place. Date/Time Smoking Status/Tobacco Use Comment Abisai acmaggie May 20, 2014 09:22 AM QUIT TOBACCO >7 YEARS AGO [facility] Feb 19, 2013 09:01 AM QUIT TOBACCO >7 YEARS AGO [facility] December 20, 2006 08:06 AM QUIT TOBACCO >7 YEARS AGO [facility] Jun 12, 2006 09:00 AM CURRENT NON-TOBACC O USER-HX OF USE [facility] Jun 12, 2006 09:00 AM TOBACCO TERMINATION STAGE [facility] December 07, 2005 11:12 AM CURRENT NON-TOBACC O USER-HX OF USE [facility] December 07, 2005 11:12 AM TOBACCO TERMINATION STAGE [facility] Mar 21, 2005 01:46 PM CURRENT NON-TOBACC O USER-HX OF USE [facility] Mar 21, 2005 01:46 PM TOBACCO TERMINATION STAGE [facility] Mar 03, 2004 09:58 AM CURRENT NON-TOBACC O USER-HX OF USE [facility] Mar 03, 2004 09:58 AM TOBACCO TERMINATION STAGE [facility] Apr 21, 2003 09:25 AM CURRENT NON-TOBACC O USER-HX OF USE QUIT 1972 [facility] Apr 21, 2003 09:25 AM CURRENT NON-TOBACC O USER-RECENTLY QUIT quit [address] [place] [address] Apr 21, 2003 09:25 AM TOBACCO USE quit [address] [place] [address] Nov 07, 2002 09:14 AM CURRENT NON-TOBACC O USER-RECENTLY QUIT quit 1971 [facility] Nov 07, 2002 09:14 AM TOBACCO USE quit 1971 [facility] Nov 08, 2001 08:09 AM CURRENT NON-TOBACC O USER-HX OF USE quit 20 yrs. ago [facility] Advance Directives: All historical and current Section Date Range: From patient's date of to the date document was created. This section includes ALL of a patient's completed or amended [place] Advance and Rescinded Directives. The entries below indicate that a directive exists for the patient, but an actual copy is not included with this document. The data comes from all [place] facilities. Date Advance Directives Provider Source Mar 26, 2021 ADVANCE DIRECTIVE DISCUSSION Jaqueline LEON [facility] Jun 12, 2014 ADVANCE DIRECTIVE DISCUSSION GÓMEZ ESPINAL [facility] Radiology Reports: +/- 30 days of [...] the Encounter. The data comes from all [place] treatment facilities. Date/Time Radiology Report Provider Source Jul 03, 2024 10:59 AM CHEST X-RAY, 2 VIE WS: NORMVAUGHN Rachel [id number] -[id number] M Ex Date: JUL 03, 2024@10:59 Req Phys: DIAMOND BOYCE Loc: -GEN SURG I CLINIC (Req'g Lo Img Loc: -MAIN RADIOLOGY SUITE Service: [facility], [address] [address] (Case [id number] COMPLETE) CHEST X-RAY, 2 VIEWS (RAD Detailed) CPT:18016 Reason for Study: Pre Op Clinical History: Report Status: Verified Date Reported: JUL 04, 2024 Date Verified: JUL 04, 2024 Flat Sorter Processor E-Sig:/ES/KATY MCNEIL MD Report: Case #[id number]. Chest examination. COMPARISON: 05/25/2023. Finding: PA and lateral views of the chest examination shows no evidence of cardiomegaly. Tortuous aorta is seen. No evidence of pulmonary vascular congestion, consolidation or mass. No evidence of pleural effusion or pneumothorax. Impression: No evidence of pulmonary consolidation, mass or lymphadenopathy. Primary Interpreting Staff: KATY MCNEIL MD, Staff Physician - Radiologist (Flat Sorter Processor) /KATY GONZALEZ [facility] Pathology Reports: +/- 30 days of [...] the Encounter. The data comes from all [place] treatment facilities. Date/Time Pathology Report Provider Source [...] crust scale. The cells stain positive for Sasser-1/Melan-A and SOX10 while they are negative for [...] Performing Laboratory: Surgical Pathology Report Performed By: [id number] [address] [place] [phone] $FTR - - - - - - [...] - - VAUGHN ZHENG STANDARD FORM 515 ID:[id number] SEX:M :1940 AGE: 84 LOC:DERMCON PCP: Kristina Panchal MD /yesenia/ BERNIE HOUSTON MD DERMATOLOGY & DERMATOPATHOLOGY Signed: 06/07/2024 12:01 BERNIE HOUSTON [facility] Encounter Notes: All associated encounter notes This section contains the clinical notes associated to the Encounter. Date/Time Encounter Note(s) Provider Source Jul 04, 2024 09:21 PM PLASTIC SURGERY CO NSULT: LOCAL TITLE: PLASTIC SURGERY CONSULT STL STANDARD TITLE: PLASTIC SURGERY CONSULT DATE OF NOTE: JUL 04, 2024@21:21 ENTRY DATE: JUL 04, 2024@21:21:43 AUTHOR: CHRISTINE BOYCE COSIGNER: HUONG WEATHERS URGENCY: STATUS: COMPLETED PLASTIC SURGERY CONSULT [facility] Has ADDENDA HPI: 84 YEAR OLD MALE with PMH below presents to plastics by general surgery anticipating reconstructive needs after excision of left dorsal forearm melanoma. 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 The lesion has been present for 11 months. The pateint has no history of other upper extremity surgeries. Nonsmoker Diabetic (A1c 7.4 09/2023) No bloodthinners or steroid PMH 1) Benign essential hypertension (SNOMED CT 1450447) 2) Dyspepsia 3) Diverticulosis Colon 4) Hemorrhoids 5) Allergic Rhinitis 6) Skin Cancer 7) Benign prostatic hyperplasia 8) B12 deficiency monitoring status (SNOMED CT 959862578) 9) Incisional hernia without mention of obstruction or gangrene (ICD-9-CM 553.21) 10) Hypothyroidism 11) Impaired glucose tolerance 12) Diabetes mellitus ROS: 12 pt ROS reviewed and negative except as indicated in HPI ALLERGIES: Patient has answered NKA ACTIVE OUTPATIENT MEDS: Active Outpatient Medications (including Supplies): Active Outpatient [...] POWDER,ORAL BY MOUTH ACTIVE 13 Total Medications SOCIAL: LIVES ALONE SMOKING: DENIES NICOTINE USE PHYSICAL EXAM: GENERAL: Adult male in no distress HEENT: Moist mucus membranes LUNGS: Nonlabored respirations on room air CARDIAC: RR ABDOMEN: Soft, nondistended EXTREMITY: Moves all extremities, WWP. Left dorsa, forearm with pink healing biopsy site approximately midshaft of forearm. No open wounds. LABS: CHEM 7: SODIUM 140 mEq/L 07/03/2024 11:25 POTASSIUM 4.3 mEq/L 07/03/2024 11:25 CHLORIDE 106 mEq/L 07/03/2024 11:25 UREA NITROGEN 15.4 mg/dL 07/03/2024 11:25 CREATININE 1.17 mg/dL 07/03/2024 11:25 CALCIUM 9.0 mg/dL 07/03/2024 11:25 CARBON DIOXIDE 25 mEq/L 07/03/2024 11:25 GLUCOSE 175 H mg/dL 07/03/2024 11:25 EGFR (CKD-EPI 2020) 61.1 07/03/2024 11:25 WBC: 8.1 10*3/uL (07/03/24 11:25) HGB: HGB 11.6 L g/dL 07/03/2024 11:25 HCT: 33.8 % L (07/03/24 11:25) PLATELETS: PLT 252 10*3/uL 07/03/2024 11:25 ASSESSMENT/PLAN: This is a 84 year old male planning excision of melanoma on left dorsal forearm with general surgery on 07/31/23. Plastic surgery will be available for reconstructive purposes. We will likely complete a skin graft with donor site left upper thigh. We discussed other options including secondary healing and flaps. He would like to be scheduled for skin graft. - Surgery scheduling order for left dorsal forearm split thickenss skin graft, possible complex repair, possible wound matrix - Will see day of surgery - - /yesenia/ Christine Boyce MD Plastic & Reconstructive Surgery PGY1 Signed: 07/04/2024 21:26 /yesenia/ HUONG WEATHERS MD, PhD Staff Physician, Plastic Surgery Cosigned: 07/05/2024 09:07 Receipt Acknowledged By: 07/05/2024 15:53 /yesenia/ JYOTI AFT Staff Physician - General Surgery 07/08/2024 ADDENDUM STATUS: COMPLETED Scheduling sheet received 07/08/24. /yesenia/ CHERIE JETT RN Case Manager, Plastic Surgery Signed: 07/08/2024 16:25 CHRISTINE BOYCE [facility]
--- OUTSIDE RECORDS SUMMARY | 2024-07-23 06:11 | XMS_ITS | Encounter Summary ---
Author Name [facility] Address [address] [place] [address] Care Team Providers Care Director Fundraising Name Role Phone KRISTINA PANCHAL Primary Care [...] COURTNEY PLUS 1 Jul 24, 2015 106 [id number] [phone] PAYAM ZHENG PATIENT ANTHE[place] [employer] FEP PREFERRED PROVIDER ORGANIZAT ION (PPO) FEP STAND COURTNEY PLUS 1 Jul 24, 2015 106 [id number] [phone] PAYAM ZHENG PATIENT [place] F[place] PREFERRED PROVIDER ORGANIZAT ION (PPO) FEP STAND COURTNEY PLUS 1 Jul 24, 2015 106 [id number] [phone] PAYAM ZHENG PATIENT [employer] FEP RETIREE [id number] Jan 22, 2004 105 [id number] PAYAM ZHENG PATIENT [place] F[place] PREFERRED PROVIDER ORGANIZAT ION (PPO) FEP STAND COURTNEY PLUS 1 Jul 24, 2015 106 [id number] [phone] PAYAM ZHENG PATIENT [place] FEP PRESCRIPT ION [id number] Jan 22, 2004 [id number] PAYAM ZHENG PATIENT MEDICARE (WNR) MEDICARE (M) PART A Jan 22, 2004 PART A [id number] PAYAM ZHENG PATIENT MEDICARE (WNR) MEDICARE (M) PART B Jan 22, 2004 PART B [id number] PAYAM ZHENG PATIENT MEDICARE (WNR) MEDICARE (M) PART A Jan 22, 2004 PART A [id number] PAYAM ZHENG PATIENT MEDICARE (WNR) MEDICARE (M) PART B Jan 22, 2004 PART B [id number] PAYAM ZHENG PATIENT Selected Encounter This section includes the information on record at [place] for the Encounter. Date/Time Encounter Type Encounter Description Reason Pro vider Source Jun 24, 2024 11:11 AM Outpatient Encounter GENERAL SURGERY IHE Encounter Template Text not used by [place] Plan of Treatment: Future Appointments (+ 6 months) and Future Tests (+/- 45 days) The Plan of Treatment section includes future care activities for the patient from all [place] treatmentfacilities. This section includes future appointments and future orders which are active, pending or scheduled. Future Appointments This section includes appointments that were scheduled to occur 6 months from the date of the Encounter, up to a maximum of 20 appointments. The data comes from all [place] treatment facilities. Appointment Date/Time Appointment Type Appointme nt Facility Name Jul 03, 2024 10:20 AM AMBULATORY - SURGERY [facility] Jul 15, 2024 10:00 AM AMBULATORY - SURGERY [facility] Jul 30, 2024 01:00 PM AMBULATORY - NONE [facility] Jul 31, 2024 08:30 AM AMBULATORY - NONE [facility] Oct 02, 2024 11:15 AM AMBULATORY - MEDICINE [facility] November 25, 2024 10:45 AM AMBULATORY - MEDICINE [facility] November 27, 2024 10:30 AM AMBULATORY - SURGERY [facility] Active, Pending, and Scheduled Orders This section includes a listing of several types of active, pending, and scheduled orders, including clinic medications orders, diagnostic test orders, procedure orders and consult orders; where the start date of the order is 45 days before the date of the Encounter or 45 days after the date of theEncounter. The data comes from all [place] treatment facilities. Test Date/Time Test Type Test Details Facility Name Jul 30, 2024 01:00 PM Imaging - Nuclear Medicine Order NM LYMPH NODE IMAGING- P [facility] Jul 31, 2024 06:00 AM Pharmacy - Clinic Infusion Order [facility] Lab Results: +/- 30 days of the encounter This section includes the Chemistry and Hematology Lab Results on record with [place] for the patient. Radiology Reports and Pathology Reports are provided separately, in subsequent sections. Lab Results This section contains the Chemistry/Hematology Results that were resulted 30 days before or 30 daysafter the date of the Encounter. Date/Time Source Result Type Result - Unit Interpretation Reference Range Comment Jul 03, 2024 11:25 AM [facility] BASIC METABOLIC PANEL Specimen Type: PLASMA Comment: No hemolysis noted. Ordering Provider: YJOTI SIMMONS Report Released Date/Time: Jun 24, 2024 11:11 AM Reporting Lab: [address] [address] Performing Lab: [address] [address] CREATININE 1.17 mg/dL 0.7-1.3 UREA NITROGEN 15.4 mg/dL 9.0-25.0 GLUCOSE 175 mg/dL H 72-99 SODIUM 140 meq/L 136-145 POTASSIUM 4.3 meq/L 3.5-5 CHLORIDE 106 meq/L 98-107 CARBON DIOXIDE 25 meq/L 22-31 CALCIUM 9.0 mg/dL 8.4-10.4 EGFR (CKD-EPI 2020) 61.1 >60 Jul 03, 2024 11:[address] [facility] CBC Specimen Type: BLOOD No comment entered. Ordering Provider: JYOTI SIMMONS Report Released Date/Time: Jun 24, 2024 11:11 AM Reporting Lab: [facility] [address] [facility] [address] Performing Lab: [facility] [address] [facility] [address] WBC 8.1 10*3/uL 3.6-11.2 RBC 3.72 10*6/uL [...] and tobacco- related health factors from the [place] facility where the Encounter took place. Current Smoking Status This section includes the most current smoking, or tobacco-related health factor, from the [place] facility where the Encounter took place. Date/Time Current Smoking Status Comment Leonela franco December 07, 2015 03:10 PM QUIT TOBACCO >7 YEARS AGO [facility] Tobacco Use History This section includes a history of the smoking, or tobacco-related health factors, that were collected on or before the date of the Encounter. The data comes from the [place] facility where the Encounter took place. Date/Time Smoking Status/Tobacco Use Comment F acility May 20, 2014 09:22 AM QUIT TOBACCO >7 YEARS AGO [facility] Feb 19, 2013 09:01 AM QUIT TOBACCO >7 YEARS AGO [facility] December 20, 2006 08:06 AM QUIT TOBACCO >7 YEARS AGO [facility] Jun 12, 2006 09:00 AM CURRENT NON-TOBACC O USER-HX OF USE [facility] Jun 12, 2006 09:00 AM TOBACCO TERMINATION STAGE [facility] December 07, 2005 11:12 AM CURRENT NON-TOBACC O USER-HX OF USE [facility] December 07, 2005 11:12 AM TOBACCO TERMINATION STAGE [facility] Mar 21, 2005 01:46 PM CURRENT NON-TOBACC O USER-HX OF USE [facility] Mar 21, 2005 01:46 PM TOBACCO TERMINATION STAGE [facility] Mar 03, 2004 09:58 AM CURRENT NON-TOBACC O USER-HX OF USE [facility] Mar 03, 2004 09:58 AM TOBACCO TERMINATION STAGE [facility] Apr 21, 2003 09:25 AM CURRENT NON-TOBACC O USER-HX OF USE QUIT [address] [place] [address] Apr 21, 2003 09:25 AM CURRENT NON-TOBACC O USER-RECENTLY QUIT quit [address] [place] [address] Apr 21, 2003 09:25 AM TOBACCO USE quit [address] [place] [address] Nov 07, 2002 09:14 AM CURRENT NON-TOBACC O USER-RECENTLY QUIT quit [address] [place] [address] Nov 07, 2002 09:14 AM TOBACCO USE quit [address] [place] [address] Nov 08, 2001 08:09 AM CURRENT NON-TOBACC O USER-HX OF USE quit 20 yrs. ago [facility] Advance Directives: All historical and current Section Date Range: From patient's date of to the date document was created. This section includes ALL of a patient's completed or amended [place] Advance and Rescinded Directives. The entries below indicate that a directive exists for the patient, but an actual copy is not included with this document. The data comes from all [place] facilities. Date Advance Directives Provider Source Mar 26, 2021 ADVANCE DIRECTIVE DISCUSSION Jaqueline LEON [facility] Jun 12, 2014 ADVANCE DIRECTIVE DISCUSSION GÓMEZ [...] the Encounter. The data comes from all [place] treatment facilities. Date/Time Radiology Report Provider Source Jul 03, 2024 10:59 AM CHEST X-RAY, 2 VIE WS: VAUGHN ZHENG Virginie [id number] -[id number] M Exm Date: JUL 03, 2024@10:59 Req Phys: DIAMOND SCRUGGS Loc: -GEN SURG I CLINIC (Req'g Lo Img Loc: -MAIN RADIOLOGY SUITE Service: [facility], [facility] [address] [place] [address] (Case [id number] COMPLETE) CHEST X-RAY, 2 VIEWS (RAD Detailed) CPT:89661 Reason for Study: Pre Op Clinical History: Report Status: Verified Date Reported: JUL 04, 2024 Date Verified: JUL 04, 2024 [employer] E-Sig:/ES/KATY MCNEIL MD Report: Case #[id number]. Chest examination. COMPARISON: 05/25/2023. Finding: PA and lateral views of the chest examination shows no evidence of cardiomegaly. Tortuous aorta is seen. No evidence of pulmonary vascular congestion, consolidation or mass. No evidence of pleural effusion or pneumothorax. Impression: No evidence of pulmonary consolidation, mass or lymphadenopathy. Primary Interpreting Staff: KATY MCNEIL MD, Staff Physician - Radiologist ([employer] Teacher) /KATY GONZALEZ [facility] Pathology Reports: +/- 30 days of [...] the Encounter. The data comes from all [place] treatment facilities. Date/Time Pathology Report Provider Source [...] crust scale. The cells stain positive for [place]-1/Melan-A and SOX10 while they are negative for [...] Performing Laboratory: Surgical Pathology Report Performed By: [facility] [address] [place] [address] CLIA# [id number] [address] [place] [id number] $FTR - - - - - - [...] - - VAUGHN ZHENG STANDARD FORM 515 ID:[id number] SEX:M :1940 AGE: 84 LOC:DERMCON PCP: Kristina Panchal MD /joss [facility]ST[facility] MD DERMATOLOGY & DERMATOPATHOLOGY Signed: 06/07/2024 12:01 BERNIE HOUSTON [facility] Encounter Notes: All associated encounter notes This section contains the clinical notes associated to the Encounter. Date/Time Encounter Note(s) Provider Source Jul 08, 2024 12:53 AM CARDIOLOGY DIAGNOS TIC STUDY CONSULT: LOCAL TITLE: EKG CONSULT ST[facility] STANDARD TITLE: CARDIOLOGY DIAGNOSTIC STUDY CONSULT DATE OF NOTE: JUL 08, 2024@00:53:46 ENTRY DATE: JUL 08, 2024@00:53:46 AUTHOR: CLINICAL,DEVICE PRO EXP COSIGNER: URGENCY: STATUS: COMPLETED DOCUMENT IN VISTA IMAGING SEE FULL REPORT IN VISTA IMAGING SIGNATURE NOT REQUIRED SEE SIGNATURE IN VISTA IMAGING ([place] EKG) AUTO-INSTRUMENT DIAGNOSIS Procedure: 15096 12 Lead ECG Release Status: Released Off-Line Verified Date Verified: Jul 08, 2024@00:53:38 85369.2 Ventricular Rate: 66 BPM 05783.3 Atrial Rate: 66 BPM 83455.4 P-R Interval: 156 ms 44714.5 QRS Duration: 106 ms 16986.6 Q-T Interval: 418 ms 74709 QTC Calculation(Bazett)438 ms 68572.12 Calculated P [place]: 38 degrees 74449.13 Calculated R [place]: -22 degrees 96135.14 Calculated T [place]: 31 degrees Normal sinus rhythm Normal ECG When compared with ECG of 04-JAN-2010 07:49, Questionable change in The axis Administrative Closure: 07/08/2024 by: CLINICAL,DEVICE PROXY SERVICE CLINICAL,DEVICE PROXY SERVICE [facility]
--- OUTSIDE RECORDS SUMMARY | 2024-07-23 06:11 | XMS_ITS ---
Author Name [facility] [place] [facility] [place] [facility] [place] [facility] [place] Address [address] [place] [address] Care Team Providers Care Vp Product Name Role Phone KRISTINA PANCHAL Primary Care [...] COURTNEY PLUS 1 Jul 24, 2015 [id number] [phone] PAYAM ZHENG PATIENT ANTHEM [place] FEP PREFERRED PROVIDER ORGANIZAT ION (PPO) FEP STAND COURTNEY PLUS 1 Jul 24, 2015 106 [id number] [phone] PAYAM ZHENG PATIENT ANTHE[place] F[place] PREFERRED PROVIDER ORGANIZAT ION (PPO) FEP STAND COURTNEY PLUS 1 Jul 24, 2015 106 [id number] [phone] PAYAM ZHENG PATIENT BCBS FEP RETIREE [id number] Jan 22, 2004 105 [id number] PAYAM ZHENG PATIENT [place] F[place] PREFERRED PROVIDER ORGANIZAT ION (PPO) FEP STAND COURTNEY PLUS 1 Jul 24, 2015 106 [id number] [phone] PAYAM ZHENG PATIENT [place] FEP PRESCRIPT [place]ON [id number] Jan 22, 2004 [id number] [phone] PAYAM ZHENG PATIENT MEDICARE (WNR) MEDICARE (M) PART A Jan 22, 2004 PART A [id number] [phone] PAYAM ZHENG PATIENT MEDICARE (WNR) MEDICARE (M) PART B Jan 22, 2004 PART B [id number] PAYAM ZHENG PATIENT MEDICARE (WNR) MEDICARE (M) PART A Jan 22, 2004 PART A [id number] [phone] PAYAM ZHENG PATIENT MEDICARE (WNR) MEDICARE (M) PART B Jan 22, 2004 PART B [id number] PAYAM ZHENG PATIENT Selected Encounter This section includes the information on record at CT for the Encounter. Date/Time Encounter Type Encounter Description Reason Provider Source Jun 21, 2024 10:00 AM OFF/OP CNSLTJ NEW/EST MOD 40 GENERAL SURGERY ICD-10-CM C43.62 Malignant melanoma of left upper limb, including shoulder AFT,JYOTI IHE Encounter Template Text not used by CT Assessments - Encounter Diagnoses This section includes the primary and secondary diagnoses documented for the Encounter. Date/Time Primary/Secondary Diagnosis Diagnosis Name Provider Source Jun 24, 2024 11:09 AM PRIMARY Malignant melanoma of left upper limb, including shoulder AFT,JYOTI [facility] Plan of Treatment: Future Appointments (+ 6 months) and Future Tests (+/- 45 days) The Plan of Treatment section includes future care activities for the patient from all CT treatmentfacilities. This section includes future appointments and future orders which are active, pending or scheduled. Future Appointments This section includes appointments that were scheduled to occur 6 months from the date of the Encounter, up to a maximum of 20 appointments. The data comes from all CT treatment facilities. Appointment Date/Time Appointment Type Appointme nt Facility Name Jul 03, 2024 10:20 AM AMBULATORY - SURGERY . Porsha STERLING [facility] Jul 15, 2024 10:00 AM AMBULATORY - SURGERY . Porsha STERLING [facility] Jul 30, 2024 01:00 PM AMBULATORY - NONE . MARIZOL Hansen [facility] Jul 31, 2024 08:30 AM AMBULATORY - NONE Isaias Hansen [facility] Oct 02, 2024 11:15 AM AMBULATORY - MEDICINE [facility] November 25, 2024 10:45 AM AMBULATORY - MEDICINE [facility] November 27, 2024 10:30 AM AMBULATORY - SURGERY [facility] Porsha ERICK [facility] Active, Pending, and Scheduled Orders This section includes a listing of several types of active, pending, and scheduled orders, including clinic medications orders, diagnostic test orders, procedure orders and consult orders; where the start date of the order is 45 days before the date of the Encounter or 45 days after the date of theEncounter. The data comes from all CT treatment facilities. Test Date/Time Test Type Test Details Facility Name Jul 30, 2024 01:00 PM Imaging - Nuclear Medicine Order NM LYMPH NODE IMAGING- P [facility] Jul 31, 2024 06:00 AM Pharmacy - Clinic Infusion Order [facility] Lab Results: +/- 30 days of the encounter This section includes the Chemistry and Hematology Lab Results on record with CT for the patient. Radiology Reports and Pathology Reports are provided separately, in subsequent sections. Lab Results This section contains the Chemistry/Hematology Results that were resulted 30 days before or 30 daysafter the date of the Encounter. Date/Time Source Result Type Result - Unit Interpretation Reference Range Comment Jul 03, 2024 11:25 AM [facility] BASIC METABOLIC PANEL Specimen Type: PLASMA Comment: No hemolysis noted. Ordering Provider: JYOTI SIMMONS Report Released Date/Time: Jun 24, 2024 11:11 AM Reporting Lab: [facility] [address] [address] Performing Lab: [address] [id number] CREATININE 1.17 mg/dL 0.7-1.3 UREA NITROGEN 15.4 mg/dL 9.0-25.0 GLUCOSE 175 mg/dL H 72-99 SODIUM 140 meq/L 136-145 POTASSIUM 4.3 meq/L 3.5-5 CHLORIDE 106 meq/L 98-107 CARBON DIOXIDE 25 meq/L 22-31 CALCIUM 9.0 mg/dL 8.4-10.4 EGFR (CKD-EPI 2020) 61.1 >60 Jul 03, 2024 11:25 AM [facility] CBC Specimen Type: BLOOD No comment entered. Ordering Provider: JYOTI SIMMONS Report Released Date/Time: Jun 24, 2024 11:11 AM Reporting Lab: [facility] [address] [id number] Performing Lab: [facility] [address] [address] WBC 8.1 10*3/uL 3.6-11.2 RBC 3.72 10*6/uL [...] and tobacco- related health factors from the CT facility where the Encounter took place. Current Smoking Status This section includes the most current smoking, or tobacco-related health factor, from the CT facility where the Encounter took place. Date/Time Current Smoking Status Comment Leonela franco December 07, 2015 03:10 PM QUIT TOBACCO >7 YEARS AGO [facility] Tobacco Use History This section includes a history of the smoking, or tobacco-related health factors, that were collected on or before the date of the Encounter. The data comes from the CT facility where the Encounter took place. Date/Time Smoking Status/Tobacco Use Comment Abisai acility May 20, 2014 09:22 AM QUIT TOBACCO >7 YEARS AGO [facility] Feb 19, 2013 09:01 AM QUIT TOBACCO >7 YEARS AGO [facility] December 20, 2006 08:06 AM QUIT TOBACCO >7 YEARS AGO [facility] Jun 12, 2006 09:00 AM CURRENT NON-TOBACC O USER-HX OF USE [facility] Jun 12, 2006 09:00 AM TOBACCO TERMINATION STAGE [facility] December 07, 2005 11:12 AM CURRENT NON-TOBACC O USER-HX OF USE [facility] December 07, 2005 11:12 AM TOBACCO TERMINATION STAGE [facility] Mar 21, 2005 01:46 PM CURRENT NON-TOBACC O USER-HX OF USE [facility] Mar 21, 2005 01:46 PM TOBACCO TERMINATION STAGE [facility] Mar 03, 2004 09:58 AM CURRENT NON-TOBACC O USER-HX OF USE [facility] Mar 03, 2004 09:58 AM TOBACCO TERMINATION STAGE [facility] Apr 21, 2003 09:25 AM CURRENT NON-TOBACC O USER-HX OF USE QUIT [address] [place] [address] Apr 21, 2003 09:25 AM CURRENT NON-TOBACC O USER-RECENTLY QUIT quit [address] [place] [address] Apr 21, 2003 09:25 AM TOBACCO USE quit [address] [place] [address] Nov 07, 2002 09:14 AM CURRENT NON-TOBACC O USER-RECENTLY QUIT quit [address] [place] [address] Nov 07, 2002 09:14 AM TOBACCO USE quit [address] [place] [address] Nov 08, 2001 08:09 AM CURRENT NON-TOBACC O USER-HX OF USE quit 20 yrs. ago [facility] Advance Directives: All historical and current Section Date Range: From patient's date of to the date document was created. This section includes ALL of a patient's completed or amended CT Advance and Rescinded Directives. The entries below indicate that a directive exists for the patient, but an actual copy is not included with this document. The data comes from all CT facilities. Date Advance Directives Provider Source Mar 26, 2021 ADVANCE DIRECTIVE DISCUSSION Jaqueline LEON [facility] Jun 12, 2014 ADVANCE DIRECTIVE DISCUSSION GÓMEZ ESPINAL [facility] Radiology Reports: +/- 30 [...] the Encounter. The data comes from all CT treatment facilities. Date/Time Radiology Report Provider Source Jul 03, 2024 10:59 AM CHEST X-RAY, 2 VIE WS: VAUGHN ZHENG [id number] -[id number] M Ex Date: JUL 03, 2024@10:59 Req Phys: DIAMOND BOYCE Loc: -GEN SURG I CLINIC (Req'g Lo Img Loc: -MAIN RADIOLOGY SUITE Service: [facility], [facility] [address] [place] [address] (Case [id number] COMPLETE) CHEST X-RAY, 2 VIEWS (RAD Detailed) CPT:32656 Reason for Study: Pre Op Clinical History: Report Status: Verified Date Reported: JUL 04, 2024 Date Verified: JUL 04, 2024 Hi Lo Driver E-Sig:/ES/KATY MCNEIL MD Report: Case #[id number]. Chest examination. COMPARISON: 05/25/2023. Finding: PA and lateral views of the chest examination shows no evidence of cardiomegaly. Tortuous aorta is seen. No evidence of pulmonary vascular congestion, consolidation or mass. No evidence of pleural effusion or pneumothorax. Impression: No evidence of pulmonary consolidation, mass or lymphadenopathy. Primary Interpreting Staff: KATY MCNEIL MD, Staff Physician - Radiologist (Hi Lo Driver) /KATY GONZALEZ [facility] Pathology Reports: +/- 30 [...] the Encounter. The data comes from all CT treatment facilities. Date/Time Pathology Report Provider Source [...] crust scale. The cells stain positive for [place]-1/Melan-A and SOX10 while they are negative for [...] Performing Laboratory: Surgical Pathology Report Performed By: [address]# [id number] [address] [place] [id number] $FTR - - - - - - [...] - - VAUGHN ZHENG STANDARD FORM 515 ID:[id number] SEX:M :1940 AGE: 84 LOC:DERMCON PCP: Kristina Panchal MD /yesenia/ BERNIE HOUSTON MD DERMATOLOGY & DERMATOPATHOLOGY Signed: 06/07/2024 12:01 BERNIE HOUSTON [facility] Encounter Notes: All associated encounter notes This section contains the clinical notes associated to the Encounter. Date/Time Encounter Note(s) Provider Source Jul 02, 2024 03:14 PM SURGERY NOTE: LOCAL TITLE: GENERAL SURGERY NOTE STL STANDARD TITLE: SURGERY NOTE DATE OF NOTE: JUL 02, 2024@15:14 ENTRY DATE: JUL 02, 2024@15:14:20 AUTHOR: DIAMOND BOYCE COSIGNER: URGENCY: STATUS: COMPLETED GENERAL SURGERY NOTE STL Has ADDENDA If a patient should call inquiring about this procedure or to cancel, please contact Abi Malhotra PA-C ext. [phone], Diamond Boyce PA-C ext. [phone], counselor managerring spinner, Jacquelin Fox, ext. [phone]. Surgery: Wide Local Excision of Left Arm Melanoma with [place] Lymph Node Biopsy (joint case with Plastic Surgery for closure) Will require lymphoscintigraphy on 07/30/24 at 1300 with Nuclear Medicine, [facility] 2nd Floor. (Patient will go home after procedure). Patient agreeable to this surgery date: 07/31/2024 arrivin to [facility] Will likely be discharged the same day and will need auto transport driver to go home after surgery. Pt. verbalized understanding NPO after midnight before surgery. Take usual morning medications the day of surgery with sips of water/no coffee. Patient instructed to hold the following medications on the morning of surgery: Lisinopril. Hold Empagliflozin/Metformin 3 days before surgery. Do not bring your medications. Any medications you need will be provided for you. Bring your inhalers(use morning of surgery) and CPAP machine, if you use them. Preoperative printout bathing instruction reviewed and given to patient. Chlorhexidine preoperative liquid soap has been ordered and will be mailed via pharmacy. Take shower with preoperative liquid soap the night before surgery and the morning of surgery all over body from the neck down (DO NOT USE ON FACE). Preop letter included the above information given to patient. Pt. verbalized all understanding of the above information. Pt. encouraged to call surgical dept for further questions or concerns. Surgical dept extension is included within the preop letter. Pt. made aware anesthesia consult will be submitted. Patient needs the following preop testing: EKG, CXR and labs ordered. Patient voiced understanding that should they fail to comply with these instructions their case will be cancelled and may not be rescheduled for several weeks. /yesenia/ Diamond Boyce PA-C General Surgery Physician Curriculum Supervisor Signed: 07/02/2024 15:26 Receipt Acknowledged By: 07/03/2024 07:56 /yesenia/ JYOTI SIMMONS Staff Physician - General Surgery 07/03/2024 11:30 /es/ HUONG WEATHERS MD, PhD Staff Physician, Plastic Surgery * AWAITING SIGNATURE * CHRISTINE BOYCE 07/03/2024 16:08 /yesenia/ CHERIE JETT RN Case Manager, Plastic Surgery 07/18/2024 ADDENDUM STATUS: COMPLETED SENT LETTER TO CONFIRM APPT. /yesenia/ IVAN PEREZ [employer] ASSTISANT Signed: 07/18/2024 12:48 DIAMOND BOYCE TRACEE [facility] Jun 24, 2024 11:05 AM SURGERY CONSULT: LOCAL TITLE: GENERAL SURGERY I CONSULT [facility] [[email or web address]] STANDARD TITLE: SURGERY CONSULT DATE OF NOTE: JUN 24, 2024@11:05 ENTRY DATE: JUN 24, 2024@11:05:13 AUTHOR: JYOTI SIMOMNS EXP COSIGNER: URGENCY: STATUS: COMPLETED CHIEF COMPLAINT: Melanoma HISTORY OF PRESENT ILLNESS: The patient is an 84-year-old male who on routine surveillance by his vulcanizer operator was noted to have a lesion on his left arm. The patient underwent a shave biopsy which demonstrated 1.5 mm melanoma. The patient presents for surgical evaluation. He denies any systemic symptoms Denies fever/chills/nausea/vomiting/ chest pain/shortness of breath. PAST MEDICAL HISTORY: 1) Benign essential hypertension (SNOMED CT [id number]) 2) Dyspepsia 3) Diverticulosis Colon 4) Hemorrhoids 5) Allergic Rhinitis 6) Skin Cancer 7) Benign prostatic hyperplasia 8) B12 deficiency monitoring status (SNOMED CT 475363737) 9) Incisional hernia without mention of obstruction or gangrene (ICD-9-CM 553.21) 10) Hypothyroidism 11) Impaired glucose tolerance 12) Diabetes mellitus PAST SURGICAL HISTORY: NC Family history/social history: [place] MEDICATIONS: Active Outpatient Medications (excluding Supplies): Issue Date Status Last Fill Active Outpatient Medications Refills Expiration 1) FLUOROURACIL 5% CREAM Qty: 40 for 30 ACTIVE Issu:05-28-24 days Sig: APPLY THIN FILM TO AFFECTED Refills: 0 Last:06-03-24 AREA(S) TWICE DAILY FOR ACTINIC Expr:06-27-24 KERATOSIS AVOID SUN EXPOSURE. FOLLOW DIRECTIONS CAREFULLY FOR PROPER HANDLING/DISPOSAL. APPLY TO SCALP AND EARS TWICE DAILY FOR 2 WEEKS THEN APPLY TWICE DAILY FOR TO WEEKS TO BOTH ARMS Start Date Active Non-VA Medications Refills Expiration 1) Non-VA AMLODIPINE BESYLATE 5MG TAB Sig: ACTIVE 5MG BY MOUTH ONCE A DAY 2) Non-VA CHOLECALCIF 50MCG (D3-2,000UNIT) ACTIVE TAB SiUNIT BY MOUTH ONCE A DAY 3) Non-VA CYANOCOBALAMIN 1000MCG TAB Sig: ACTIVE 1000MCG BY MOUTH ONCE A DAY 4) Non-VA EMPAGLIFLOZIN 5MG/METFORMIN ACTIVE 1000MG TAB Si TABLET BY MOUTH TWICE A DAY 5) Non-VA LEVOTHYROXINE NA (SYNTHROID) ACTIVE 75MCG TAB SiMCG BY MOUTH EVERY MORNING BEFORE A MEAL 6) Non-VA LISINOPRIL 40MG TAB SiMG BY ACTIVE MOUTH ONCE A DAY 7) Non-VA LORATADINE 10MG TAB SiMG BY ACTIVE MOUTH ONCE A DAY 8) Non-VA METRONIDAZOLE 0.75% TOP GEL Sig: ACTIVE SPARINGLY TO AFFECTED AREA(S) TWICE A DAY 9) Non-VA MULTIVITAMIN CAP/TAB Si ACTIVE TABLET BY MOUTH ONCE A DAY 10) Non-VA OMEPRAZOLE 20MG EC CAP SiMG ACTIVE BY MOUTH EVERY MORNING 11) Non-VA PHENYLEPHRINE HCL 0.25% RTL SUPP ACTIVE Si SUPPOSITORY RECTALLY TWICE DAILY NEEDED 12) Non-VA PSYLLIUM POWDER,ORAL Sig: BY ACTIVE MOUTH 13 Total Medications ALLERGIES: Patient has answered NKA ROS: Review of systems as per HPI and additionally notable for Constitutional: No fever, No weakness/ fatigue Cardiovascular: No chest pain, No palpitations Respiratory: No shortness of breath, No cough Genitourinary: No dysuria, No polyuria Neurology: No headache, No tremors Musculoskeletal: No joint pain, No back pain Skin: No rash, No itching Psychiatric: No anxiety, No depression PHYSICAL EXAM: No data available General ?No acute distress, well-nourished, appropriate HEENT Moist mucous membranes, no lesion or exudate Neck - Supple, Left upper Ext - no edema, no cyanosis, the patient has a healing superficial ulcer on the posterior aspect of his left arm several centimeters above his wrist. The superficial ulcer is approximately 1.5 cm. This is consistent with his recent shave biopsy Lymph - no cervical or supraclavicular or axillary LAD LABS: WBC 5.7 10*3/uL 09/26/2023 11:30 RBC 3.68 L 10*6/uL 09/26/2023 11:30 HGB 11.1 L g/dL 09/26/2023 11:30 HCT 32.8 L % 09/26/2023 11:30 MCV 89.1 fL 09/26/2023 11:30 MCH 30.2 pg 09/26/2023 11:30 MCHC 33.8 g/dL 09/26/2023 11:30 RDW 13.0 % 09/26/2023 11:30 PLT 299 10*3/uL 09/26/2023 11:30 MPV 9.0 fL 09/26/2023 11:30 NEUTROPHILS, AUTO % 69 % 09/26/2023 11:30 LYMPHOCYTES, AUTO % 18 % 09/26/2023 11:30 MONOCYTES, AUTO % 10 % 09/26/2023 11:30 EOSINOPHILS, AUTO % 2 % 09/26/2023 11:30 BASOPHILS, AUTO % 1 % 09/26/2023 11:30 NEUTROPHILS, ABSOLUTE 3.94 10*3/uL 09/26/2023 11:30 LYMPHOCYTES, ABSOLUTE 1.03 10*3/uL 09/26/2023 11:30 MONOCYTES, ABSOLUTE 0.57 10*3/uL 09/26/2023 11:30 EOSINOPHILS, ABSOLUTE 0.13 10*3/uL 09/26/2023 11:30 BASOPHILS, ABSOLUTE 0.05 10*3/uL 09/26/2023 11:30 SODIUM 138 mEq/L 09/26/2023 11:30 POTASSIUM 4.0 mEq/L 09/26/2023 11:30 CHLORIDE 103 mEq/L 09/26/2023 11:30 UREA NITROGEN 16.4 mg/dL 09/26/2023 11:30 CREATININE 1.21 mg/dL 09/26/2023 11:30 CALCIUM 9.4 mg/dL 09/26/2023 11:30 PROTEIN 7.2 g/dL 09/26/2023 11:30 ALBUMIN 4.1 g/dL 09/26/2023 11:30 ALKALINE PHOSPHATASE 84 U/L 09/26/2023 11:30 ALT/SGPT 18 U/L 09/26/2023 11:30 AST/SGOT 21 U/L 09/26/2023 11:30 TOTAL BILIRUBIN 1.0 mg/dL 09/26/2023 11:30 CARBON DIOXIDE 26 mEq/L 09/26/2023 11:30 GLUCOSE 176 H mg/dL 09/26/2023 11:30 EGFR (CKD-EPI 2020) 59.0 09/26/2023 11:30 No INR EO data found IMAGING: No Impressions found No Impressions found No Impressions found IMAGING IMPRESSION SELECTED No selection items chosen for this component. PROGRESS NOTES SELECTED No data available for: CAROTID U/S EVALUATION MA No data available for: CT ABDOMEN W/CONT CT ABDOMEN W/O CONT CT ABDOMEN W&W/O CONT CT PELVIS W/CONT CT PELVIS W/O CONT CT PELVIS WITH AND WITHOUT CONTRAST CT THORACIC SPINE W/CONT CT THORACIC SPINE W/O CONT CT ABDOMEN AND PELVIS W/CONTRAST CT ABDOMEN AND PELVIS W/O CONTRAST CT ABDOMEN AND PELVIS WITH AND WITHOUT CONTRAST CT THORACIC SPINE W/O&W CONTRAST ASSESSMENT/PLAN: Melanoma I reviewed the pathology with the patient. I told the patient that he requires treatment for his melanoma. I have recommended wide excision with 2 cm margins as well as a sentinel lymph node biopsy. I have told the patient that he would likely need skin graft closure and this will be performed by plastic surgery. The patient has a consultation with plastic surgery. We will schedule the patient for a wide excision of the melanoma, sentinel lymph node biopsy with lymphoscintigraphy, and wound closure by plastic surgery. The patient understands and agrees with this plan. He knows to call with questions FUTURE APPOINTMENTS: 07/03/2024 10:20 [facility]PLASTIC SURG WEATHERS 07/15/2024 10:00 [facility]-AUDIO MAROON TECH 10/02/2024 11:15 [facility]-MAN PACT STRIPES RES 3 11/25/2024 10:45 [facility] 11/27/2024 10:30 [facility]-OPHTH EYE PLEITEZ /yesenia/ JYOTI SIMMONS Staff Physician - General Surgery Signed: 06/24/2024 11:09 Receipt Acknowledged By: 06/24/2024 11:46 /yesenia/ Diamond Boyce PA-C General Surgery Physician Curriculum Supervisor JYOTI SIMMONS [facility]
--- OUTSIDE RECORDS SUMMARY | 2024-07-23 06:12 | XMS_ITS | Encounter Summary ---
Author Organization [facility] Address [address] [place] [address] Care Team Providers Care Business Services Administrator Name Role Phone Glen Enamorado DO Primary Care Provider [phone] Encounter Details Date Type Department Care Team (Late st Contact Info) Description 06/07/2021 Telephone [facility] Cardiology [address] [place] [address] Dimas Bauer MD [address] [place] [address] Social History Tobacco Use Types Packs/Day Years Used Date Smoking Tobacco: Former Cigarettes Q uit: 05/07/1965 Smokeless Tobacco: Never Alcohol Use Standard Drinks/Week Comments No 0 (1 standard drink = 0.6 oz pur e alcohol) Sex and Gender Information Value Date Recorded Sex Assigned at Not on file Legal Sex Male 2:26 PM POWER PLANT SUPERVISOR Gender Identity Male 06/21/2021 9:06 AM POWER PLANT SUPERVISOR Sexual Orientation Bisexual 06/21/2021 9: 15 AM POWER PLANT SUPERVISOR documented as of this encounter Miscellaneous Notes * Telephone Encounter - Georgia Juárez RN - 06/07/2021 2:50 PM POWER PLANT SUPERVISOR LM on requesting callback. R PLANT SUPERVISOR * Telephone Encounter - Tavia Solano - 06/07/2021 2:34 PM CST Pt called to report his BP today. States he feels nauseas and tired. Also reports pain on his back by his shoulder blades. 06/07 BP= 95/57 Contact: R PLANT SUPERVISOR documented in this encounter Plan of Treatment Not on file documented as of this encounter Visit Diagnoses Not on filedocumented in this encounter Care Teams Business Services Administrator Relationship Specialty Start Date End Date Glen Enamorado DO PCP - General Internal Medicine 05/07/20 documented as of this encounter
--- OUTSIDE RECORDS SUMMARY | 2024-07-23 06:12 | XMS_ITS | Encounter Summary ---
Author Organization [facility] Address [address] [place] [address] Care Team Providers Care Prop Maker Name Role Phone Glen Enamorado Primary Care Provider Reason for Referral * (Routine) - Closed Specialty Diagnoses / Procedures Referred By Contac t Referred To Contact Diagnoses Chest pain, unspecified type Procedures Echo Exercise Stress Test Only Dimas Bauer MD [facility] [place] [id number] Phone: tel: fax: [facility] Referral ID Status Reason Start Date Expiration Date Visits Re quested Visits Authorized [id number] Closed 05/07/2020 06/06/2021 1 1 Reason for Visit * Reason Comments New Patient Chest Pain Hypertension * Consultation (Routine) - Closed Specialty Diagnoses / Procedures Referred By Contac t Referred To Contact Cardiology Diagnoses Chest pain, unspecified type López Chiang, ELIEZER [address] [facility] [address] [place] [address] Phone: tel: fax: [facility] Cardiology [address] [place] [phone] Phone: tel: fax: Referral ID Status Reason Start Date Expiration Date V isits Requested Visits Authorized [id number] Closed Specialty Services Required 05/07/2020 06/06/2021 1 1 Encounter Details Date Type Department Care Team (Late st Contact Info) Description 05/07/2020 11:30 AM CDT Office Visit [facility] Cardiology [address] [place] [id number] Dimas Bauer MD [address] [place] [address] Chest pain, unspecified type Social History Tobacco Use Types Packs/Day Years Used Date Smoking Tobacco: Former Cigarettes Q uit: 05/07/1965 Smokeless Tobacco: Never Alcohol Use Standard Drinks/Week Comments No 0 (1 standard drink = 0.6 oz pur e alcohol) Sex and Gender Information Value Date Recorded Sex Assigned at Not on file Legal Sex Male 2:26 PM SERVER 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 ADMINISTRATOR Gender Identity Male 06/21/2021 9:06 AM SERVER SYSTEMS ADMINISTRATOR Sexual Orientation Bisexual 06/21/2021 9: 15 AM SERVER SYSTEMS ADMINISTRATOR documented as of this encounter Last Filed Vital Signs Vital Sign Reading Time Taken Comments Blood Pressure 144/76 05/07/2020 11:51 AM CDT Pulse 78 05/07/2020 11:51 AM CDT Temperature - - Respiratory Rate - - Oxygen Saturation 97% 05/07/2020 11:51 AM CDT Inhaled Oxygen Concentration - - Weight 82.1 kg (181 lb) 05/07/2020 11:51 AM CDT Height 160 cm (5' 3 ) 05/07/2020 11:51 AM CDT Body Mass Index 32.06 05/07/2020 11:51 AM CDT documented in this encounter Progress Notes * Dimas Bauer MD - 05/07/2020 11:30 AM CDT [facility] 05/07/2020 CHIEF COMPLAINT Exertional chest pain/GARCÍA HPI Vaughn Gonzalez is a 80 y.o. male with no previous history of significant cardiac problems that havebeen diagnosed who is referred today by his PCP for cardiac evaluation because of symptoms of dyspnea and exertional chest pain. The patient states the symptoms began approximately 1 year ago and have not been of great concern to him but he is saw his PCP this morning and was toe told that he had to see a book jacket cover machine operator SARAH. He was therefore given this appointment to see me today. 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 He was working fairly hard in the last several days to a week a putting up some new drywall at his son's house and he is able to perform these activities without a lot of trouble. When he does try to exert at a higher level though he will experience some shortness of breath and some dullness in the upper left-sided aspect of his chest up underneath the clavicle. These symptoms generally resolved at a short time of rest. He did notice earlier in the year whenhe took a vacation to the [facility] in [place] at about 8000 ft elevation he was having these symptoms in a more notable fashion. He has never been known to have coronary artery disease in the past he did have some symptoms of palpitations in the past and had a Topera[employer] event monitor placed by a different book jacket cover machine operator this was removed after 3 years of monitoring because the battery was exhausted andthere were no significant arrhythmias identified. His primary health problems mostly include hypertension and diabetes which are under good control with medication. He has had a previous cholecystectomy and appendectomy as well. Twelve lead electrocardiogram in the office is within normal limits. MEDICAL HISTORY Past Medical History: Diagnosis Date ??? Acid indigestion ??? Diabetes mellitus (CMS/HCC) ??? Diverticulitis ??? Gastroesophageal reflux disease GERD ??? HX OTHER MEDICAL Diverticulitis-s/pcolon resection ??? Hypertension Past Surgical History: Procedure Laterality Date ??? APPENDECTOMY Appendectomy ??? APPENDECTOMY ??? CHOLECYSTECTOMY Cholecystectomy ??? CHOLECYSTECTOMY ??? SURGERY FOR CONGENITAL HERNIA ??? OTHER SURGICAL HISTORY Diverticulitis-s/pcolon resection: Family History Problem Relation Age of Onset ??? Heart disease Mother ??? Alzheimer's disease Father ??? Alzheimer's disease Sister ??? Alzheimer's disease Brother Social History Socioeconomic History ??? Marital status: Spouse name: Not on file ??? Number of children: Not on file ??? Years of education: Not on file ??? Highest education level: Not on file Occupational History ??? Not on file Social Needs ??? Financial resource strain: Not on file ??? Food insecurity Worry: Not on file Inability: Not on file ??? Transportation needs Medical: Not on file Non-medical: Not on file Tobacco Use ??? Smoking status: Former Smoker Types: Cigarettes Quit date: 05/07/1965 Years since quittin.0 ??? Smokeless tobacco: Never Used Substance and Sexual Activity ??? Alcohol use: No ??? Drug use: No ??? Sexual activity: Not on file Lifestyle ??? Physical activity Days per week: Not on file Minutes per session: Not on file ??? Stress: Not on file Relationships ??? Social connections Talks on phone: Not on file Gets together: Not on file Attends congregation service: Not on file Active member of club or organization: Not on file Attends meetings of clubs or organizations: Not on file Relationship status: Not on file ??? Intimate partner violence Fear of current or ex partner: Not on file Emotionally abused: Not on file Physically abused: Not on file Forced sexual activity: Not on file Other Topics Concern ??? Not on file Social History Narrative ??? Not on file (Not in a hospital admission) No Known Allergies REVIEW OF SYSTEMS General ROS: negative for - chills, fatigue, fever, malaise, night sweats, weight gain or weight loss Psychological ROS: negative for - anxiety, depression, memory difficulties or sleep disturbances Ophthalmic ROS: negative for - blurry vision, decreased vision, loss of vision or scotomata ENT ROS: negative for - epistaxis, headaches, hearing change, nasal congestion, nasal discharge, sore throat, vertigo or visual changes Hematological and Lymphatic ROS: negative for - bleeding problems, blood clots, bruising, fatigue or weight loss Endocrine ROS: negative for - hot flashes, palpitations, polydipsia/polyuria or unexpected weight changes Respiratory ROS: negative for - cough, hemoptysis, orthopnea, shortness of breath, tachypnea or wheezing Cardiovascular ROS: negative for - chest pain, dyspnea on exertion, edema, irregular heartbeat, loss of consciousness, murmur, orthopnea, palpitations, paroxysmal nocturnal dyspnea, rapid heart rate or shortness of breath Gastrointestinal ROS: negative for - abdominal pain, appetite loss, blood in stools, constipation, diarrhea, gas/bloating, heartburn, hematemesis, melena or nausea/vomiting Genito-Urinary ROS: negative for - dysuria, erectile dysfunction or hematuria Musculoskeletal ROS: negative for - joint pain, muscle pain or muscular weakness Dermatological ROS: negative for dry skin, eczema, pruritus and rash LABS AND OTHER DIAGNOSTIC TESTS Lab Results Component Value Date HGB 10.1 (L) 06/17/2013 HCT 30.6 (L) 06/17/2013 MCV 95.9 06/17/2013 No lab exists for component: LABALBU No results found for: CHOL No results found for: HDL No results found for: LDLCALC No results found for: TRIG No results found for: CHOLHDL PHYSICAL EXAM Vitals BP 144/76 (BP Location: Left arm, Patient Position: Sitting) Pulse 78 Ht 160 cm (5' 3 ) Wt 82.1 kg (181 lb) SpO2 97% BMI 32.06 kg/m?? General appearance - alert, well appearing, and in no distress, oriented to person, place, and timeand acyanotic, in no respiratory distress Mental status - affect appropriate to mood Eyes - extraocular eye movements intact, sclera anicteric, no pallor Ears - external earsappear normal, hearing grossly normal bilaterally Nose - normal and patent, no erythema or discharge Mouth - mucous membranes moist, pharynx appears normal, dental hygiene good and tongue normal Neck - supple, no significant neck masses, carotids upstroke normal bilaterally, no bruits, no JVD Chest - clear to auscultation, no wheezes, rales or rhonchi, symmetric air entry, no tachypnea, retractions or cyanosis Heart - normal rate, regular rhythm, normal S1, S2, very soft early systolic murmur audible at the left sternal border with no radiation, rubs, clicks or gallops, no JVD Abdomen - soft, nontender, nondistended, no masses or organomegaly bowel sounds normal Neurological - alert, oriented, normal speech, no focal findings or movement disorder noted Musculoskeletal - no joint tenderness, deformity or swelling, no muscular tenderness noted Extremities - peripheral pulses normal, no pedal edema, no clubbing or cyanosis Skin - normal coloration and turgor, no rashes, no suspicious skin lesions noted ASSESSMENT Exertional dyspnea/chest pain which are occurring in this 80-year-old gentleman who has risk factors of hypertension and diabetes. He is otherwise doing quite well overall and does not describe any it recent acceleration in the symptoms. He is up till now not known to have or documented to have significant coronary artery disease. It sounds like his referring physician became aware of the symptoms during this morning's appointment. PLAN/RECOMMENDATIONS Arrange for stress echocardiogram to be and done in the office for initial noninvasive screening testing and further recommendations will be forthcoming after those findings are available Dimas Bauer MD documented in this encounter Miscellaneous Notes * Addendum Note - Gertrudis Zhong MA - 05/07/2020 11:30 AM CDTAddended by: GERTRUDIS ZHONG on: 05/07/2020 04:49 PM Modules accepted: Orders documented in this encounter Plan of Treatment Not on file documented as of this encounter Procedures Procedure Name Priority Date/Time Associated Diagnosis Comments ECG 12-LEAD Routine 05/07/2020 Chest pain, unspecified type documented in this encounter Results * STRESS ECHO EXERCISE WO DOPPLER/CF WO CONTRAST (06/23/2020 12:12 PM SERVER SYSTEMS ADMINISTRATOR) Anatomical Region Laterality Modality Ultrasound 06/23/2020 10:4 1 AM SERVER SYSTEMS ADMINISTRATOR Narrative 06/23/2020 5:23 PM SERVER SYSTEMS ADMINISTRATOR [facility] Cardiology [address] [address] [address], [place] [address] P:[phone] P:[phone] Echocardiographic Report Patient Name: VAUGHN GONZALEZ : [id number] Study Date: 06/23/2020 10:41:04 AM Gender: M Tech: Location: [place] Ref.Provider: ASIA Height(Cm): 160 BSA: 1.85 Weight(Kg): 82.1 Heart Rate: 61 BP: 130/72 Quality: Good Order Provider: DIMAS BAUER Procedures: Stress Echo Report: Treadmill stress echocardiogram. Indications: Chest Pain, Medications: Amlodipine, Vit B-12, Lisinopril, Claritin, Metformin, Metronidazole, Vitamin D, Prilosec, Protopic, and Stress test monitored by: Hodan Rod RN. Findings: Stress Echo: Protocol - Walt Protocol. Exercise Time - 6.06 min. Baseline Heart Rate - 61. Peak Heart Rate - 140. Predicted Maximal Heart Rate - 139. 85% MPHR - 118. Baseline BP - 130/72. Peak BP - 200/70. Rate Pressure Product - [id number]. METS Achieved - 7.00. Percent Predicted Maximal HR Achieved - 101 %. Interpretation Site: Exam was interpreted at [facility]. Performance: Average exercise functional capacity. Hemodynamic Response: Normal blood pressure response. Arrhythmia: No exercise induced arrhythmias. Termination: Fatigue. Resting ECG: Normal sinus rhythm. Poor R-wave progression. Exercise ECG: Non-diagnostic ST-T wave changes with exercise. Resting LV Function: Normal left ventricular size, normal systolic function, normal wall thickness with no segmental wall motion abnormalities at rest. Post Stress LV Function: These segments of the LV are hypokinetic: basal inferior segment. Conclusions: Protocol - Walt Protocol. Exercise Time - 6.06 min. Baseline Heart Rate - 61. Peak Heart Rate - 140. Predicted Maximal Heart Rate - 139. 85% MPHR - 118. Baseline BP - 130/72. Peak BP - 200/70. Rate Pressure Product - [id number]. METS Achieved - 7.00. Percent Predicted Maximal HR Achieved - 101 %. Normal sinus rhythm. Poor R-wave progression. Non-diagnostic ST-T wave changes with exercise. Normal left ventricular size, normal systolic function, normal wall thickness with no segmental wall motion abnormalities at rest. These segments of the LV are hypokinetic: basal inferior segment. Echocardiographic evidence of ischemia. Electronically Signed By: Dimas Bauer MD, [facility] 2020-06-23 17:23:19 SERVER SYSTEMS ADMINISTRATOR Procedure Note Dimas Bauer MD - 06/23/2020 [facility] Cardiology [address] [id number] [address], [place] [address] P:[phone] P:[phone] Echocardiographic Report Patient Name: VAUGHN GONZALEZPatient ID: [id number] : [id number] Date: 06/23/2020 10:41:04 AM Gender: MAccession #: [id number] Tech: GMLocation: [place] Ref.Provider: Hector(Cm): 160 BSA: 1.85Weight(Kg): 82.1 Heart Rate: 61BP: 130/72 Quality: GoodOrder Provider: DIMAS BAUER Procedures: Stress Echo Report: Treadmill stress echocardiogram. Indications: Chest Pain, Medications: Amlodipine, Vit B-12, Lisinopril, Claritin,Metformin, Metronidazole, Vitamin D, Prilosec, Protopic, and Stress test monitoredby: Hodan Rod RN. Findings: Stress Echo: Protocol - Walt Protocol. Exercise Time - 6.06 min. Baseline Heart Rate -61. Peak Heart Rate - 140. Predicted Maximal Heart Rate - 139. 85% MPHR - 118. BaselineBP - 130/72. Peak BP - 200/70. Rate Pressure Product - [id number]. METS Achieved - 7.00.Percent Predicted Maximal HR Achieved - 101 %. Interpretation Site: Exam was interpreted at [facility]. Performance: Average exercise functional capacity. Hemodynamic Response: Normal blood pressure response. Arrhythmia: No exercise induced arrhythmias. Termination: Fatigue. Resting ECG: Normal sinus rhythm. Poor R-wave progression. Exercise ECG: Non-diagnostic ST-T wave changes with exercise. Resting LV Function: Normal left ventricular size, normal systolic function, normal wallthickness with no segmental wall motion abnormalities at rest. Post Stress LV Function: These segments of the LV are hypokinetic: basal inferior segment. Conclusions: Protocol - Walt Protocol. Exercise Time - 6.06 min. Baseline Heart Rate -61. Peak Heart Rate - 140. Predicted Maximal Heart Rate - 139. 85% MPHR - 118. BaselineBP - 130/72. Peak BP - 200/70. Rate Pressure Product - [id number]. METS Achieved - 7.00.Percent Predicted Maximal HR Achieved - 101 %. Normal sinus rhythm. Poor R-wave progression. Non-diagnostic ST-T wave changes with exercise. Normal left ventricular size, normal systolic function, normal wallthickness with no segmental wall motion abnormalities at rest. These segments of the LV are hypokinetic: basal inferior segment. Echocardiographic evidence of ischemia. Electronically Signed By: Dimas Bauer MD, [facility] 2020-06-23 17:23:19 SERVER SYSTEMS ADMINISTRATOR us Dimas Bauer MD CV ECHO PROCEDURES Final Result * ECG 12 lead (05/07/2020) Dimas Bauer MD ECG ORDERABLES Final Re sult documented in this encounter Visit Diagnoses Diagnosis Chest pain, unspecified type Chest pain, unspecified type documented in this encounter Historical Medications * This list may reflect changes made after this encounter. cyanocobalamin (Vitamin B-12) 1,000 mcg tabletIndication s:Prevention of Vitamin B12 Deficiency Take 1 tablet (1,000 mcg total) by mouth daily cholecalciferol (VITAMIN D-3) 2000 unit capsule 1 capsule (2,000 Units total) metroNIDAZOLE (METROGEL) 0.75 % gel APPLY TOPICALLY TO FACE DAILY 03/18/2020 tacrolimus (PROTOPIC) 0.1 % ointment RUB IN WELL TWICE DAILY TOPICALLY TO RED AREA(S) IN GROIN 03/17/2020 loratadine (CLARITIN) 10 mg tablet loratadine 10 mg tablet metFORMIN XR (GLUCOPHAGE XR) 500 mg 24 hr tablet Take 1 tablet (500 mg total) by mouth 2 (two) times a day 04/13/2020 omeprazole (PriLOSEC) 40 mg capsule Take 1 capsule (40 mg total) by mouth daily 02/21/2020 lisinopriL (PRINIVIL,ZESTRI L) 40 mg tablet Take 1 tablet (40 mg total) by mouth daily 03/31/2020 amLODIPine (NORVASC) 5 mg tablet Take 1 tablet (5 mg total) by mouth daily 03/30/2020 Euthyrox 75 mcg tablet Take 1 tablet (75 mcg total) by mouth daily 04/13/2020 added in this encounter Orders Outpatient Referral Count Last Ordered Date Fir st Ordered Date AMB REFERRAL TO CARDIOLOGY 1 05/07/2020 documented in this encounter Care Teams Prop Maker Relationship Specialty Start Date End Date Glen Enamorado DO PCP - General Internal Medicine 05/07/20 documented as of this encounter
--- OUTSIDE RECORDS SUMMARY | 2024-07-23 06:12 | XMS_ITS | Encounter Summary ---
Author Organization [facility] Address [address] [place] [address] Care Team Providers Care Ornamental Metalwork Designer Name Role Phone Glen Enamorado DO Primary Care Provider [phone] Encounter Details Date Type Department Care Team (Late st Contact Info) Description 02/22/2021 2:30 PM CDT Office Visit [facility] Cardiology [address] [place] [address] Tamika Salas, ELIEZER [address] [place] [address] Cardiovascular stress test abnormal (Primary Dx); Mild ankle edema Social History Tobacco Use Types Packs/Day Years Used Date Smoking Tobacco: Former Cigarettes Q uit: 05/07/1965 Smokeless Tobacco: Never Alcohol Use Standard Drinks/Week Comments No 0 (1 standard drink = 0.6 oz pur e alcohol) Sex and Gender Information Value Date Recorded Sex Assigned at Not on file Legal Sex Male 2:26 PM AGILE SCRUM MASTER Gender Identity Male 06/21/2021 9:06 AM AGILE SCRUM MASTER Sexual Orientation Bisexual 06/21/2021 9: 15 AM AGILE SCRUM MASTER documented as of this encounter Last Filed Vital Signs Vital Sign Reading Time Taken Comments Blood Pressure 122/74 02/22/2021 2:26 PM CDT Pulse 71 02/22/2021 2:26 PM CDT Temperature - - Respiratory Rate - - Oxygen Saturation 96% 02/22/2021 2:26 PM CDT Inhaled Oxygen Concentration - - Weight 83 kg (183 lb) 02/22/2021 2:26 PM CDT Height 160 cm (5' 3 ) 02/22/2021 2:26 PM CDT Body Mass Index 32.42 02/22/2021 2:26 PM CDT documented in this encounter Progress Notes * Tamika Salas NP - 02/22/2021 2:30 PM CDT [facility] Cardiology [address] [place] [address] Date of Visit: 02/22/2021 Patient ID: Loy Gonzalez [id number] Chief Complaint: Loy Gonzalez is a 81 y.o. male who is an established patient of Dr. Bauer returning to the office for routine follow-up. History of Present Illness: Loy Gonzalez is a 81 y.o. male with no previous history of [...] told that he had to see a watch crystal molder SARAH. He was therefore given this appointment [...] year whenhe took a vacation to the [facility] in [place] at about 8000 ft elevation he was having these symptoms in a more notable fashion. He has never been known to have coronary artery disease in the past he did have some symptoms of palpitations in the past and had a LINQ event monitor placed by a different watch crystal molder this was removed after 3 years of monitoring because the battery was exhausted andthere were no significant arrhythmias identified. His primary health problems mostly include hypertension and diabetes which are under good control with medication. He has had a previous cholecystectomy and appendectomy as well. Twelve lead electrocardiogram in the office is within normal limits. ?? 07/30/2020 office visit: Patient had a stress echocardiogram done in May. The study was very mildly abnormal. After long discussion he opted for medical therapy of this. I a beta-ezequiel and oral nitrates were added to his medical regimen. Since being started on the above regimen he has had nofurther symptoms of chest pain. He is not walking very far in the winter time but states he can walk around a couple of city blocks which measures about half to 3/4 of a mi and he does not have any symptomatology. At this point he is happy with the results of his medical treatment and he does not wish to have an angiogram which is a decision that I agree with 02/22/2021 office visit with SENIOR CASE MANAGER: He is here for routine follow-up. Atorvastatin was started at the last visit and the patient states he developed ongoing diarrhea in joint pain/muscle aches in hips, arms, shoulders, knees. He stop the atorvastatin and the symptoms resolved. PCP started him on rosuvastatin every other day. He began this about a week ago and has done well so far. He just got back from a vacation at [facility]. He noticed some dyspnea walking up hills but this does not seem any new or different, perhaps a little worse compared to 1-2 years ago. He denies chest pain. He was alsohaving some feet and ankle swelling on his trip but it has been better since he is back home. Records that I personally reviewed on the day of this visit include: (the interpretation is outlined in the HPI above) 07/30/[address] Bauer I have also reviewed: allergies, current medications, past family history, past medical history, past social history, past surgical history and problem list Review of Systems Constitutional: Negative for diaphoresis, fever, malaise/fatigue, weight gain and weight loss. HENT: Negative for hearing loss. Eyes: Negative for visual disturbance. Cardiovascular: Positive for leg swelling. Negative for chest pain, claudication, orthopnea, palpitations, paroxysmal nocturnal dyspnea and syncope. Respiratory: Positive for shortness of breath and sleep disturbances due to breathing ( at times ).Negative for cough, hemoptysis, snoring and wheezing. Hematologic/Lymphatic: Does not bruise/bleed easily. Skin: Negative for poor wound healing and rash. Musculoskeletal: Negative for joint pain and myalgias. Gastrointestinal: Negative for heartburn, nausea and vomiting. Genitourinary: Negative for hematuria. Neurological: Negative for dizziness, headaches and light-headedness. Psychiatric/Behavioral: Negative for depression. The patient is not nervous/anxious. Vital Signs: BP 122/74 (BP Location: Right arm, Patient Position: Sitting) Pulse 71 Ht 160 cm (5' 3 ) Wt 83 kg (183 lb) SpO2 96% BMI 32.42 kg/m?? Physical Exam Constitutional: General: He is not in acute distress. Appearance: He is well-developed. HENT: Head: Normocephalic and atraumatic. Nose: Comments: Wearing a mask Eyes: General: No scleral icterus. Conjunctiva/sclera: Conjunctivae normal. Pupils: Pupils are equal, round, and reactive to light. Neck: Vascular: No JVD. Trachea: No tracheal deviation. Cardiovascular: Rate and Rhythm: Normal rate and regular rhythm. Heart sounds: Normal heart sounds. No murmur heard. Pulmonary: Effort: Pulmonary effort is normal. No respiratory distress. Breath sounds: Normal breath sounds. Abdominal: General: Bowel sounds are normal. Palpations: Abdomen is soft. Tenderness: There is no abdominal tenderness. Comments: Abdominal obesity Musculoskeletal: Comments: Trace bilateral foot/ankle edema, mild left pretibial edema. Skin: General: Skin is warm and dry. Neurological: Mental Status: He is alert and oriented to person, place, and time. Psychiatric: Mood and Affect: Mood normal. Behavior: Behavior normal. No Known Allergies Current Outpatient Medications: ??? amLODIPine (NORVASC) 5 mg tablet, Take 5 mg by mouth daily, Disp: , Rfl: ??? cholecalciferol (VITAMIN D-3) 2000 unit capsule, 2,000 Units, Disp: , Rfl: ??? cyanocobalamin (Vitamin B-12) 1,000 mcg tablet, Take 1,000 mcg by mouth daily, Disp: , Rfl: ??? Euthyrox 75 mcg tablet, Take 75 mcg by mouth daily, Disp: , Rfl: ??? isosorbide mononitrate ER (IMDUR) 30 mg 24 hr tablet, Take 1 tablet (30 mg total) by mouth daily, Disp: 30 tablet, Rfl: 11 ??? lisinopriL (PRINIVIL,ZESTRIL) 40 mg tablet, Take 40 mg by mouth daily, Disp: , Rfl: ??? loratadine (CLARITIN) 10 mg tablet, loratadine 10 mg tablet, Disp: , Rfl: ??? metFORMIN XR (GLUCOPHAGE XR) 500 mg 24 hr tablet, Take 500 mg by mouth 2 (two) times a day, Disp: , Rfl: ??? metoprolol XL (TOPROL-XL) 50 mg extended release tablet, Take 1 tablet (50 mg total) by mouth daily, Disp: 30 tablet, Rfl: 11 ??? metroNIDAZOLE (METROGEL) 0.75 % gel, APPLY TOPICALLY TO FACE DAILY, Disp: , Rfl: ??? multivitamin capsule, Take 1 capsule by mouth daily, Disp: , Rfl: ??? omeprazole (PriLOSEC) 40 mg capsule, Take 40 mg by mouth daily, Disp: , Rfl: ??? rosuvastatin (CRESTOR) 10 mg tablet, Take 10 mg by mouth every other day, Disp: , Rfl: ??? tacrolimus (PROTOPIC) 0.1 % ointment, RUB IN WELL TWICE DAILY TOPICALLY TO RED AREA(S) IN GROIN, Disp: , Rfl: Lab Results Component Value Date POTASSIUM 4.1 06/17/2013 BUNSER 8 06/17/2013 CREATININE 0.76 06/17/2013 Assessment: Diagnoses and all orders for this visit: Cardiovascular stress test abnormal (Primary) Mild ankle edema Plan/Recommendations: He is presumed to have mild coronary disease based on abnormal stress test last year. He elected toforego medical therapy. From a cardiac perspective he appears stable. He had some side effects withthe atorvastatin but this has resolved with rosuvastatin. I recommend he continue his current medical therapy. He has mild ankle edema that does not sound cardiac either. If this continues to be bothersome to him he could try knee-high graduated compression socks. I reviewed signs/symptoms of CHF so he would recognize this if it occurred. Return to the office to see Dr. Bauer in 6 months. Call us sooner with questions or concerns. Tamika Salas, ANP- Nurse Practitioner with [facility] Cardiology This note is dictated and transcribed using MModal Fluency Direct Software. Leather Tooler variancesmay occur. Despite proofreading, typographical errors may occur. documented in this encounter Plan of Treatment Not on file documented as of this encounter Visit Diagnoses Diagnosis Cardiovascular stress test abnormal- Primary Mild ankle edema documented in this encounter Discontinued Medications Medication Sig Discontinue Reason Start Date End Da te atorvastatin (LIPITOR) 20 mg tablet Take 1 tablet (20 mg total) by mouth daily Alternate therapy 06/23/2020 02/22/2021 documented as of this encounter Historical Medications * This list may reflect changes made after this encounter. rosuvastatin (CRESTOR) 10 mg tablet Take 10 mg by mouth every other day 01/21/2021 06/21/2021 added in this encounter Care Teams Ornamental Metalwork Designer Relationship Specialty Start Date End Date Glen Enamorado DO PCP - General Internal Medicine 05/07/20 documented as of this encounter
--- OUTSIDE RECORDS SUMMARY | 2024-07-23 06:12 | XMS_ITS | Encounter Summary ---
Author Organization [facility] Address [address] [place] [address] Care Team Providers Care Produce Assistant Name Role Phone Glen Enamorado DO Primary Care Provider [phone] Encounter Details Date Type Department Care Team (Late st Contact Info) Description 06/08/2021 Orders Only [facility] Cardiology [address] [place] [address] Brian Thomason MD [address] [phone] Social History Tobacco Use Types Packs/Day Years Used Date Smoking Tobacco: Former Cigarettes Q uit: 05/07/1965 Smokeless Tobacco: Never Alcohol Use Standard Drinks/Week Comments No 0 (1 standard drink = 0.6 oz pur e alcohol) Sex and Gender Information Value Date Recorded Sex Assigned at Not on file Legal Sex Male 2:26 PM TRADEMARK ATTORNEY Gender Identity Male 06/21/2021 9:06 AM TRADEMARK ATTORNEY Sexual Orientation Bisexual 06/21/2021 9: 15 AM TRADEMARK ATTORNEY documented as of this encounter Plan of Treatment Not on file documented as of this encounter Procedures Procedure Name Priority Date/Time Associated Diagnosis Comments CARDIOLOGY DOCUMENT SCAN Routine 06/08/2021 documented in this encounter Results * SCAN - CARDIOLOGY (06/08/2021) Anatomical Region Laterality Modality Other us Brian Thomason MD [facility] Final Result documented in this encounter Visit Diagnoses Not on filedocumented in this encounter Care Teams Produce Assistant Relationship Specialty Start Date End Date Glen Enamorado DO PCP - General Internal Medicine 05/07/20 documented as of this encounter
--- OUTSIDE RECORDS SUMMARY | 2024-07-23 06:12 | XMS_ITS | Encounter Summary ---
Author Organization [facility] Care Team Providers Care Title One Teacher Name Role Phone Ziggy Chapman MD Primary Care Provider [phone] Encounter Details Date Type Department Care Team (Latest Contact Info) Description 08/28/2013 9:53 AM NUMERICAL CONTROL ROUTER OPERATOR - 11/07/2013 11:59 PM CDT Hospital Encounter [facility] Lb Barrios MD [address] [address] Abdominal pain of other specified site Social History Tobacco Use Types Packs/Day Years Used Date Smoking Tobacco: Former Alcohol Use Standard Drinks/Week Comments No 0 (1 standard drink = 0.6 oz pur e alcohol) Sex and Gender Information Value Date Recorded Sex Assigned at Not on file Legal Sex Male 2:26 PM NUMERICAL CONTROL ROUTER OPERATOR Gender Identity Male 06/21/2021 9:06 AM NUMERICAL CONTROL ROUTER OPERATOR Sexual Orientation Bisexual 06/21/2021 9: 15 AM NUMERICAL CONTROL ROUTER OPERATOR documented as of this encounter Plan of Treatment Not on file documented as of this encounter Visit Diagnoses Diagnosis Abdominal pain of other specified site documented in this encounter Care Teams Title One Teacher Relationship Specialty Start Date End Date Ziggy Chapman MD PCP - General 08/20/13 05/06/20 documented as of this encounter
--- OUTSIDE RECORDS SUMMARY | 2024-07-23 06:12 | XMS_ITS | Encounter Summary ---
Author Organization [facility] Facility Care Team Providers Care Emergency Room Physician Name Role Phone Ziggy Chapman MD Primary Care Provider [phone] Encounter Details Date Type Department Care Team (Latest Contact Info) Description 06/10/2013 1:40 PM PHARMACY TECH CUSTOMER SERVICE - 06/17/2013 1:00 PM PHARMACY TECH CUSTOMER SERVICE Hospital Encounter [facility] Lb Jameson MD [address] [place] [address] Incisional hernia with obstruction; Other digestive system complications; Paralytic ileus (CMS/HCC) (HCC); Anemia; Peritoneal adhesions; Essential hypertension; Hypothyroidism; Other specified surgical operation and procedure causing abnormal patient reaction or later complication; Place of occurrence, residential institution; Personal history of tobacco use, presenting hazards to health; Esophageal reflux Social History Tobacco Use Types Packs/Day Years Used Date Smoking Tobacco: Former Alcohol Use Standard Drinks/Week Comments No 0 (1 standard drink = 0.6 oz pur e alcohol) Sex and Gender Information Value Date Recorded Sex Assigned at Not on file Legal Sex Male 2:26 PM PHARMACY TECH CUSTOMER SERVICE Gender Identity Male 06/21/2021 9:06 AM PHARMACY TECH CUSTOMER SERVICE Sexual Orientation Bisexual 06/21/2021 9: 15 AM PHARMACY TECH CUSTOMER SERVICE documented as of this encounter Last Filed Vital Signs Vital Sign Reading Time Taken Comments Blood Pressure 171/90 06/17/2013 9:09 AM PHARMACY TECH CUSTOMER SERVICE Pulse 80 06/17/2013 9:09 AM PHARMACY TECH CUSTOMER SERVICE Temperature - - Respiratory Rate - - Oxygen Saturation - - Inhaled Oxygen Concentration - - Weight 83 kg (183 lb) 06/11/2013 10:34 AM PHARMACY TECH CUSTOMER SERVICE Height 162.6 cm (5' 4.02 ) 06/11/2013 10:[address] Body Mass Index 31.4 06/11/2013 10:34 AM PHARMACY TECH CUSTOMER SERVICE documented in this encounter Discharge Summaries * Provider, MD Ayla - 06/17/2013 12:00 AM CST Patient: VAUGHN GONZALEZ Account: [id number] Room No: 2306-A : 1940 Admit Date: 06/10/2013 Attending: LB JAMESON M.D. Disch. Date: 06/17/2013 Dictating: LB JAMESON M.D. Patient Type: IP Admission Diagnosis: Complex abdominal wall hernia. Name of Operation: Complex abdominal hernia repair with Strattice. History of Present Illness: Mr Gonzalez is a 73-year-old gentleman admitted to the hospital for complex abdominal hernia repair. He went to the floor for postoperative care. He was kept on epidural for postoperative pain management. This was discontinued once he was tolerating oral intake, and he was switched over to IV Dilaudid and oral Pinetta with good pain relief. He was stable from a cardiopulmonary standpoint. His abdomen was soft, he was tolerating a diet. He did have an ileus postoperatively, which took a couple days to resolve. His bowels were moving. He was tolerating diet without any problems. His Martinez catheter was removed, and his renal function remained normal. We had to replace his potassium a couple times during his hospitalization. The LUIS VAC was removed on postoperative day #6, as his incision was clean without any evidence of infection. The drains were draining less than 30 mL a day. These were removed as well without any problems. He was afebrile and vital signs were stable. His white count normalized. He was receiving physical therapy and occupational therapy. It was felt that he could be discharged to home. Condition on Discharge: Stable Discharge Medications (Refer to Medication Reconciliation Sheet): 1. He is to resume his home medications. 2. Pinetta 1 to 2 tablets every 4 to 6 hours p.r.n. for pain. Activity: No heavy lifting, no strenuous activity. May walk, may climb steps, may shower. Followup Appointment: I will see him back in the office in 2 weeks' time. He will call me with any chest pain, shortness of breath, fever of 101 or greater, nausea, vomiting, obstipation, sign of a wound infection, or any other problems. LB JAMESON M.D. BRENDAN/racquel TD: 06/17/2013 18:04 Authenticated by Lb Jameson MD On 06/20/2013 06:28:22 AM documented in this encounter Miscellaneous Notes * Admission Note - Provider, MD Ayla - 06/10/2013 12:00 AM CST Patient: VAUGHN GONZALEZ Account: [id number] Room No: [id number] : 1940 Admit Date: 06/10/2013 Attending: LB JAMESON M.D. Disch. Date: Dictating: LB JAMESON M.D. Patient Type: SDS REASON FOR ADMISSION: Complex abdominal wall hernia repair. HISTORY OF THE PRESENT ILLNESS: Mr. Gonzalez is a 73-year-old gentleman referred by Dr. Josiah Galvan from [place], [place], for evaluation of a recurrent ventral abdominal wall incisional hernia. The patient has at least 4 previous abdominal wall hernia repairs in the past, all with suture only, no mesh reportedly. This was all after having open appendectomy in 1958, open cholecystectomy in 1969, what sounds like a ruptured diverticulitis with sigmoid colectomy, colostomy, eventually colostomy reversal in 1983 with subsequent 4 incisional herniorrhaphies. Soon after that he developed these hernias. He has been managing them, but now they are getting larger and do cause him discomfort. The pain is definitely worse upon movement and better when lying still. He denied any fevers, chills, nausea or vomiting, changes in bowel habits, changes in urinary habits. He had a colonoscopy in the last couple of years which was negative. He had a cardiac catheterization two years ago for a syncopal episode which was negative as well. PAST MEDICAL HISTORY: 1. Hypertension. 2. Hypothyroidism. 3. Anemia. 4. Negative cardiac catheterization. 5. Negative colonoscopy. 6. Appendectomy. 7. Cholecystectomy. 8. Colon resection with colostomy and eventually colostomy reversal in 1983 and 4 subsequent suture only hernia repairs done from 1983 to 1992. ALLERGIES: NONE KNOWN. MEDICATIONS: 1. Levothyroxine 50 mcg every day. 2. Amlodipine 2.5 mg. 3. Lisinopril 40 mg daily. 4. Omeprazole 40 mg daily. 5. Vitamin D. SOCIAL HISTORY: He is retired. He is . His is an excellent support for him. He denied any tobacco or alcohol use. PHYSICAL EXAMINATION: GENERAL: He is awake, alert, in no distress at this time. HEENT: Normocephalic/atraumatic. Sclerae are nonicteric. Moist mucous membranes. Oropharynx is clear. NECK: Supple without any masses. HEART: Regular rate and rhythm without murmur or rub. LUNGS: Clear to auscultation bilaterally without wheezes or rhonchi. ABDOMEN: Flat and soft. He has a midline scar as well as a right paramedian scar. He has at least 6 hernias throughout his upper abdomen down to his lower abdomen as well as a left sided colostomy take down site hernia. They are not particularly tender to the touch. They are not reducible. EXTREMITIES: Warm without any cyanosis, clubbing or edema. NEUROLOGICAL: He is alert and oriented times three. He has no focal deficits. Gait is steady. SKIN: No ulcers or rashes. IMPRESSION: Complex abdominal hernia with 4 failed hernia repairs. DISCUSSION: I had a long discussion with Mr. Gonzalez and Mrs. Gonzalez regarding this. He will need a complex abdominal hernia repair with bilateral component separation, repair of his hernia with biologic graft Strattice as he had increased risk for infection. I do not believe synthetic meshes are in his best interest. Considering he has had 4 previous suture only repairs that have all failed, suture only is not in his best interest. I discussed the procedure at length with IM, benefits and epidural catheter, postoperative pain management, a 4 hour procedure, wound vac on a close incision or Kazakh padilla technique, multiple drains, 7 day hospitalization and a minimum at least 6 week recovery time. I discussed the procedure at length with him and the risks which include but not limited to bleeding, wound infection, intraabdominal infection, mesh infection requiring removal, injury to underlying structure including the bowel requiring a bowel resection, recurrence of the hernia, chronic pain or numbness, cardiopulmonary complications including deep venous thrombosis, pulmonary embolism, myocardial infarction, stroke, ventilator dependence, pneumonia, renal failure among others. He understands and all questions were answered to his apparent satisfaction, and he wishes to proceed. LB JAMESON M.D. BRENDAN/shayan TD: 06/10/2013 10:34 Authenticated by Lb Jameson MD On 06/11/2013 08:29:17 AM * Op Note - Provider, MD Ayla - 06/10/2013 12:00 AM CST Patient: VAUGHN GONZALEZ Account: [id number] Room No: 2306-A : 1940 Proc. Date: 06/10/2013 Surgeon: LB JAMESON M.D. Admit Date: 06/10/2013 Disch. Date: Patient Type: IP Preoperative Diagnosis: Recurrent incisional hernia. Postoperative Diagnosis: Recurrent incisional hernia. Operation: 1. Exploratory laparotomy with extensive lysis of adhesions up to 1 hour in duration. 2. Recurrent incisional herniorrhaphy with a 40 cm in length x 25 cm in width Strattice biologic graft in an underlay fashion. 3. Repair of small bowel enterotomy. 4. Placement of a LUIS wound VAC on a closed incision. Surgeon: Lb Jameson MD Blueprint Trimmer: SIMEON Peralta Anesthesia: General endotracheal anesthesia/epidural. Findings: Multiple incisional hernias with Nepalese cheese defects from the epigastrium down to the suprapubic area. There was also a left lower quadrant colostomy takedown incisional hernia incarcerated with omentum as well as colon. Small bowel enterotomy was made during the extensive lysis of adhesions as the small bowel was plastered to the anterior abdominal wall. Multiple Ethibond sutures were removed from the fascia. Estimated Blood Loss: Minimal. Specimen: None. Disposition: To recovery room in satisfactory condition. History: Mr Gonzalez is a 73-year-old gentleman with a quite complex past surgical history including open appendectomy, open cholecystectomy through a right paramedian incision, perforated diverticulitis, sigmoid colectomy, colostomy and eventually colostomy takedown with 4 subsequent suture only hernia repairs that have all failed. He now has a recurrent incarcerated incisional hernia that are debilitating for him. He comes to the operating for exploration. Operation: Risks and benefits were explained to the patient. Informed consent was signed. He was taken to the operating room and placed in a supine position. Anesthesia placed an epidural catheter. He was placed in a supine position and underwent adequate general endotracheal anesthesia. The abdomen was prepped and draped in the usual sterile fashion. Ioban was placed over the abdomen. The previous midline incision had a wide scar and this was excised from the epigastrium down to the suprapubic area. This was carried down to the fascia. There were multiple Nepalese cheese defects along the fascia itself. All were made into 1 large defect. The small bowel was plastered to the anterior abdominal wall. I then performed the extensive lysis of adhesions of 1 hour duration. A small bowel enterotomy was made. This was oversewn transversely using 3-0 silks in a seromuscular fashion. The extensive adhesiolysis was then carried out. No other enterotomies were identified. The colon was taken out of the old colostomy takedown site. This was carried down to the pubic area where there was a suprapubic hernia as well and the bladder had to be taken down to the space of Retzius. Once this was accomplished circumferentially, a 40 cm in length x 25 cm in width Strattice biologic graft was selected. The defect was about 30 cm in length x about 15 cm in width. The fascia did come together primarily. Therefore the Strattice was sutured in an underlay fashion taking care of the midline hernia as well as the left lower quadrant colostomy takedown hernia. This was sutured circumferentially using #1 PDS in a horizontal mattress transfascial manner circumferentially. Because of the right paramedian scar and the concern for devitalization, adipocutaneous flaps were not created, rather just made defects in the fatty layer above the fascia just introduced the needles and the sutures themselves. The graft was lying flat. The area was irrigated copiously with sterile saline solution and hemostasis was adequate. Two Silastic drains were placed on top of the Strattice underneath the fascia which was close centrally using number 1 PDS in a [id number] manner. The wound was irrigated copiously with sterile saline solution. Hemostasis was adequate. The incision was then approximated using 2-0 Vicryl in interrupted fashion for the dermis. A LUIS VAC was placed on a closed incision. The Silastic drains were sutured to the skin using 2-0 nylon suture. The patient did tolerate the procedure well. The sponge and instrument count were correct x2. He was then taken to the recovery room in satisfactory condition. LB JAMESON M.D. OG/mt TD: 06/11/2013 07:03 Authenticated by Lb Jameson MD On 06/11/2013 08:29:19 AM documented in this encounter Plan of Treatment Not on file documented as of this encounter Procedures Procedure Name Priority Date/Time Associated Diagnosis Comments PLASMA BASIC METABOLIC PANEL Routine 06/17/2013 5:29 AM PHARMACY TECH CUSTOMER SERVICE BLOOD CELL COUNT (CBC), MORPHOLOGIC EXAM Routine 06/17/2013 5:29 AM PHARMACY TECH CUSTOMER SERVICE DISCHARGE LABORATORY CUMULATIVE REPORT 06/17/2013 PLASMA BASIC METABOLIC PANEL Routine 06/16/2013 4:40 AM PHARMACY TECH CUSTOMER SERVICE BLOOD CELL COUNT (CBC), MORPHOLOGIC EXAM Routine 06/16/2013 4:40 AM PHARMACY TECH CUSTOMER SERVICE PLASMA BASIC METABOLIC PANEL Routine 06/15/2013 5:03 AM PHARMACY TECH CUSTOMER SERVICE BLOOD CELL COUNT (CBC), MORPHOLOGIC EXAM Routine 06/15/2013 5:03 AM PHARMACY TECH CUSTOMER SERVICE PLASMA BASIC METABOLIC PANEL Routine 06/14/2013 4:08 AM PHARMACY TECH CUSTOMER SERVICE BLOOD CELL COUNT (CBC), MORPHOLOGIC EXAM Routine 06/14/2013 4:08 AM PHARMACY TECH CUSTOMER SERVICE PLASMA BASIC METABOLIC PANEL Routine 06/13/2013 4:59 AM PHARMACY TECH CUSTOMER SERVICE BLOOD CELL COUNT (CBC), MORPHOLOGIC EXAM Routine 06/13/2013 4:59 AM PHARMACY TECH CUSTOMER SERVICE PLASMA BASIC METABOLIC PANEL Routine 06/12/2013 4:00 AM PHARMACY TECH CUSTOMER SERVICE BLOOD CELL COUNT (CBC), MORPHOLOGIC EXAM Routine 06/12/2013 4:00 AM PHARMACY TECH CUSTOMER SERVICE PLASMA BASIC METABOLIC PANEL Routine 06/11/2013 3:19 AM PHARMACY TECH CUSTOMER SERVICE BLOOD CELL COUNT (CBC), MORPHOLOGIC EXAM Routine 06/11/2013 3:19 AM PHARMACY TECH CUSTOMER SERVICE documented in this encounter Results * (ABNORMAL) Blood cell count (CBC), morphologic exam (06/17/2013 5:29 AM PHARMACY TECH CUSTOMER SERVICE) WBC 10.8 4.5 - 11.0 K/cumm HISTORICAL RESULTS RBC 3.19(L) 4.50 - 6.20 M/cumm HISTORICAL RESULTS Hgb 10.1(L) 13.0 - 17.0 g/dl HISTORICAL RESULTS Hct 30.6(L) 39.0 - 52.0 % HISTORICAL RESULTS MCV 95.9 80.0 - 100.0 fl HISTORICAL RESULTS MCH 31.6 27.0 - 33.0 pg HISTORICAL RESULTS MCHC 32.9 32.0 - 36.0 g/dl HISTORICAL RESULTS Rdw 12.6 11.5 - 14.5 % HISTORICAL RESULTS Platelets 350 140 - 400 K/cumm HISTORICAL RESULTS MPV 6.3(L) 7.4 - 10.4 fl HISTORICAL RESULTS Neutrophils 79.5(H) 42.0 - 75.0 % HISTORICAL RESULTS Lymphocytes 11.6(L) 21.0 - 51.0 % HISTORICAL RESULTS Monos 7.7 2.0 - 9.0 % HISTORICAL RESULTS Eosinophils 1.0 0.0 - 10.0 % HISTORICAL RESULTS Basophils 0.2 0.0 - 1.0 % HISTORICAL RESULTS Neutrophils, abs 8.5(H) 1.8 - 7.7 K/cumm HISTORICAL RESULTS Lymphocytes, abs 1.2 1.0 - 4.8 K/cumm HISTORICAL RESULTS Monocytes, absolute 0.8 0.0 - 0.8 K/cumm HISTORICAL RESULTS Eosinophils, abs 0.1 0.0 - 0.5 K/cumm HISTORICAL RESULTS Basophils, abs 0.0 0.0 - 0.2 K/cumm HISTORICAL RESULTS Blood specimen (specimen) 06/17/2013 5:29 AM PHARMACY TECH CUSTOMER SERVICE Result [facility] Lb Jameson MD LAB BLOOD ORDERABLES Final Res ult Performing Organization Address [facility] Co de Phone Number HISTORICAL RESULTS * Plasma basic metabolic panel (06/17/2013 5:29 AM PHARMACY TECH CUSTOMER SERVICE) [facility] Sodium 137 136 - 146 mmol/L HISTORICAL RESULTS K, pl 4.1 3.3 - 4.9 mmol/L HISTORICAL RESULTS Chloride 100 98 - 108 mmol/L HISTORICAL RESULTS CO2 31 22 - 33 mmol/L HISTORICAL RESULTS BUN 8 7 - 18 mg/dl HISTORICAL RESULTS Glucose 124 70 - 140 mg/dl HISTORICAL RESULTS Comment: Glucose is assumed to be non-fasting. ?? Fasting Glucose normal ranges are: 0 days - 2 months: ? 40 mg/dL - 100 mg/dL 2 months - 999 years: ?70 mg/dL - 99 mg/dL Creatinine 0.76 0.50 - 1.50 mg/dl HISTORICAL RESULTS eGFR >60 ml/min/1.7 3 m2 HISTORICAL RESULTS Comment: GFR Reference Range: = > 60 mL/min/1.73 m2 This result has been calculated assuming the patient is Non-. ??If the patient is , please multiply this result by 1.21. The GFR value is not recommended for medication dose adjustment for renal function, creatinine clearance values should be used. Calcium 8.7 8.5 - 10.5 mg/dl HISTORICAL RESULTS Plasma 06/17/2013 5:29 AM PHARMACY TECH CUSTOMER SERVICE Lb Jameson MD LAB BLOOD ORDERABLES Final Res ult Performing Organization Address City/[facility]/ZIP Co de Phone Number HISTORICAL RESULTS * DISCHARGE LABORATORY CUMULATIVE REPORT (06/17/2013) Narrative 06/17/2013 Ordered by an unspecified provider. [facility] Provider LAB BLOOD ORDERABLES Jackeline l Result * (ABNORMAL) Blood cell count (CBC), morphologic exam (06/16/2013 4:40 AM PHARMACY TECH CUSTOMER SERVICE) WBC 7.8 4.5 - 11.0 K/cumm HISTORICAL RESULTS RBC 3.25(L) 4.50 - 6.20 M/cumm HISTORICAL RESULTS Hgb 10.2(L) 13.0 - 17.0 g/dl HISTORICAL RESULTS Hct 30.8(L) 39.0 - 52.0 % HISTORICAL RESULTS MCV 94.8 80.0 - 100.0 fl HISTORICAL RESULTS MCH 31.5 27.0 - 33.0 pg HISTORICAL RESULTS MCHC 33.3 32.0 - 36.0 g/dl HISTORICAL RESULTS Rdw 12.9 11.5 - 14.5 % HISTORICAL RESULTS Platelets 317 140 - 400 K/cumm HISTORICAL RESULTS MPV 6.5(L) 7.4 - 10.4 fl HISTORICAL RESULTS Neutrophils 73.4 42.0 - 75.0 % HISTORICAL RESULTS Lymphocytes 14.6(L) 21.0 - 51.0 % HISTORICAL RESULTS Monos 9.5(H) 2.0 - 9.0 % HISTORICAL RESULTS Eosinophils 2.2 0.0 - 10.0 % HISTORICAL RESULTS Basophils 0.3 0.0 - 1.0 % HISTORICAL RESULTS Neutrophils, abs 5.7 1.8 - 7.7 K/cumm HISTORICAL RESULTS Lymphocytes, abs 1.1 1.0 - 4.8 K/cumm HISTORICAL RESULTS Monocytes, absolute 0.7 0.0 - 0.8 K/cumm HISTORICAL RESULTS Eosinophils, abs 0.2 0.0 - 0.5 K/cumm HISTORICAL RESULTS Basophils, abs 0.0 0.0 - 0.2 K/cumm HISTORICAL RESULTS Blood specimen (specimen) 06/16/2013 4:40 AM PHARMACY TECH CUSTOMER SERVICE us Lb Jameson MD LAB BLOOD ORDERABLES Final Res ult HISTORICAL RESULTS * (ABNORMAL) Plasma basic metabolic panel (06/16/2013 4:40 AM PHARMACY TECH CUSTOMER SERVICE) Sodium 139 136 - 146 mmol/L HISTORICAL RESULTS K, pl 3.0(L) 3.3 - 4.9 mmol/L HISTORICAL RESULTS Chloride 102 98 - 108 mmol/L HISTORICAL RESULTS CO2 32 22 - 33 mmol/L HISTORICAL RESULTS BUN 6(L) 7 - 18 mg/dl HISTORICAL RESULTS Glucose 129 70 - 140 mg/dl HISTORICAL RESULTS Comment: Glucose is assumed to be non-fasting. ?? Fasting Glucose normal ranges are: 0 days - 2 months: ? 40 mg/dL - 100 mg/dL 2 months - 999 years: ?70 mg/dL - 99 mg/dL Creatinine 0.72 0.50 - 1.50 mg/dl HISTORICAL RESULTS eGFR >60 ml/min/1.7 3 m2 HISTORICAL RESULTS Comment: GFR Reference Range: = > 60 mL/min/1.73 m2 This result has been calculated assuming the patient is Non-. ??If the patient is , please multiply this result by 1.21. The GFR value is not recommended for medication dose adjustment for renal function, creatinine clearance values should be used. Calcium 8.5 8.5 - 10.5 mg/dl HISTORICAL RESULTS Plasma 06/16/2013 4:40 AM PHARMACY TECH CUSTOMER SERVICE Lb Jameson MD LAB BLOOD ORDERABLES Final Res ult HISTORICAL RESULTS * (ABNORMAL) Blood cell count (CBC), morphologic exam (06/15/2013 5:03 AM PHARMACY TECH CUSTOMER SERVICE) WBC 8.8 4.5 - 11.0 K/cumm HISTORICAL RESULTS RBC 2.95(L) 4.50 - 6.20 M/cumm HISTORICAL RESULTS Hgb 9.4(L) 13.0 - 17.0 g/dl HISTORICAL RESULTS Hct 27.9(L) 39.0 - 52.0 % HISTORICAL RESULTS MCV 94.6 80.0 - 100.0 fl HISTORICAL RESULTS MCH 31.9 27.0 - 33.0 pg HISTORICAL RESULTS MCHC 33.7 32.0 - 36.0 g/dl HISTORICAL RESULTS Rdw 12.9 11.5 - 14.5 % HISTORICAL RESULTS Platelets 276 140 - 400 K/cumm HISTORICAL RESULTS MPV 6.4(L) 7.4 - 10.4 fl HISTORICAL RESULTS Neutrophils 79.0(H) 42.0 - 75.0 % HISTORICAL RESULTS Lymphocytes 9.9(L) 21.0 - 51.0 % HISTORICAL RESULTS Monos 9.8(H) 2.0 - 9.0 % HISTORICAL RESULTS Eosinophils 1.2 0.0 - 10.0 % HISTORICAL RESULTS Basophils 0.1 0.0 - 1.0 % HISTORICAL RESULTS Neutrophils, abs 7.0 1.8 - 7.7 K/cumm HISTORICAL RESULTS Lymphocytes, abs 0.9(L) 1.0 - 4.8 K/cumm HISTORICAL RESULTS Monocytes, absolute 0.9(H) 0.0 - 0.8 K/cumm HISTORICAL RESULTS Eosinophils, abs 0.1 0.0 - 0.5 K/cumm HISTORICAL RESULTS Basophils, abs 0.0 0.0 - 0.2 K/cumm HISTORICAL RESULTS Blood specimen (specimen) 06/15/2013 5:03 AM PHARMACY TECH CUSTOMER SERVICE Lb Jameson MD LAB BLOOD ORDERABLES Final Res ult HISTORICAL RESULTS * (ABNORMAL) Plasma basic metabolic panel (06/15/2013 5:03 AM PHARMACY TECH CUSTOMER SERVICE) Sodium 136 136 - 146 mmol/L HISTORICAL RESULTS K, pl 3.0(L) 3.3 - 4.9 mmol/L HISTORICAL RESULTS Chloride 103 98 - 108 mmol/L HISTORICAL RESULTS CO2 27 22 - 33 mmol/L HISTORICAL RESULTS BUN 6(L) 7 - 18 mg/dl HISTORICAL RESULTS Glucose 132 70 - 140 mg/dl HISTORICAL RESULTS Comment: Glucose is assumed to be non-fasting. ?? Fasting Glucose normal ranges are: 0 days - 2 months: ? 40 mg/dL - 100 mg/dL 2 months - 999 years: ?70 mg/dL - 99 mg/dL Creatinine 0.76 0.50 - 1.50 mg/dl HISTORICAL RESULTS eGFR >60 ml/min/1.7 3 m2 HISTORICAL RESULTS Comment: GFR Reference Range: = > 60 mL/min/1.73 m2 This result has been calculated assuming the patient is Non-. ??If the patient is , please multiply this result by 1.21. The GFR value is not recommended for medication dose adjustment for renal function, creatinine clearance values should be used. Calcium 7.9(L) 8.5 - 10.5 mg/dl HISTORICAL RESULTS Plasma 06/15/2013 5:03 AM PHARMACY TECH CUSTOMER SERVICE Lb Jameson MD LAB BLOOD ORDERABLES Final Res ult HISTORICAL RESULTS * (ABNORMAL) Blood cell count (CBC), morphologic exam (06/14/2013 4:08 AM PHARMACY TECH CUSTOMER SERVICE) WBC 14.2(H) 4.5 - 11.0 K/cumm HISTORICAL RESULTS RBC 3.11(L) 4.50 - 6.20 M/cumm HISTORICAL RESULTS Hgb 9.7(L) 13.0 - 17.0 g/dl HISTORICAL RESULTS Comment:As of August 07, the hemoglobin alert value has changed from less than 7.0 g/dL to less than or equal to 6.5 g/dL, first time per admission. Hct 29.5(L) 39.0 - 52.0 % HISTORICAL RESULTS Comment:As of August 07, the hematocrit alert value has changed from less than 21% to less than or equal to 19.5%, first time per admission. MCV 95.0 80.0 - 100.0 fl HISTORICAL RESULTS MCH 31.3 27.0 - 33.0 pg HISTORICAL RESULTS MCHC 33.0 32.0 - 36.0 g/dl HISTORICAL RESULTS Rdw 12.9 11.5 - 14.5 % HISTORICAL RESULTS Platelets 261 140 - 400 K/cumm HISTORICAL RESULTS MPV 6.2(L) 7.4 - 10.4 fl HISTORICAL RESULTS Neutrophils 85.3(H) 42.0 - 75.0 % HISTORICAL RESULTS Lymphocytes 6.4(L) 21.0 - 51.0 % HISTORICAL RESULTS Monos 8.1 2.0 - 9.0 % HISTORICAL RESULTS Eosinophils 0.2 0.0 - 10.0 % HISTORICAL RESULTS Basophils 0.0 0.0 - 1.0 % HISTORICAL RESULTS Neutrophils, abs 12.1(H) 1.8 - 7.7 K/cumm HISTORICAL RESULTS Lymphocytes, abs 0.9(L) 1.0 - 4.8 K/cumm HISTORICAL RESULTS Monocytes, absolute 1.2(H) 0.0 - 0.8 K/cumm HISTORICAL RESULTS Eosinophils, abs 0.0 0.0 - 0.5 K/cumm HISTORICAL RESULTS Basophils, abs 0.0 0.0 - 0.2 K/cumm HISTORICAL RESULTS Blood specimen (specimen) 06/14/2013 4:08 AM PHARMACY TECH CUSTOMER SERVICE Lb Jameson MD LAB BLOOD ORDERABLES Final Res ult Performing Organization Address [facility] de Phone Number HISTORICAL RESULTS * (ABNORMAL) Plasma basic metabolic panel (06/14/2013 4:08 AM PHARMACY TECH CUSTOMER SERVICE) Sodium 137 136 - 146 mmol/L HISTORICAL RESULTS K, pl 3.7 3.3 - 4.9 mmol/L HISTORICAL RESULTS Chloride 105 98 - 108 mmol/L HISTORICAL RESULTS CO2 26 22 - 33 mmol/L HISTORICAL RESULTS BUN 11 7 - 18 mg/dl HISTORICAL RESULTS Glucose 134 70 - 140 mg/dl HISTORICAL RESULTS Comment: Glucose is assumed to be non-fasting. ?? Fasting Glucose normal ranges are: 0 days - 2 months: ? 40 mg/dL - 100 mg/dL 2 months - 999 years: ?70 mg/dL - 99 mg/dL Creatinine 0.89 0.50 - 1.50 mg/dl HISTORICAL RESULTS eGFR >60 ml/min/1.7 3 m2 HISTORICAL RESULTS Comment: GFR Reference Range: = > 60 mL/min/1.73 m2 This result has been calculated assuming the patient is Non-. ??If the patient is , please multiply this result by 1.21. The GFR value is not recommended for medication dose adjustment for renal function, creatinine clearance values should be used. Calcium 8.2(L) 8.5 - 10.5 mg/dl HISTORICAL RESULTS Plasma 06/14/2013 4:08 AM PHARMACY TECH CUSTOMER SERVICE us Lb Jameson MD LAB BLOOD ORDERABLES Final Res ult Performing Organization Address [facility] de Phone Number HISTORICAL RESULTS * (ABNORMAL) Blood cell count (CBC), morphologic exam (06/13/2013 4:59 AM PHARMACY TECH CUSTOMER SERVICE) WBC 15.1(H) 4.5 - 11.0 K/cumm HISTORICAL RESULTS RBC 3.12(L) 4.50 - 6.20 M/cumm HISTORICAL RESULTS Hgb 9.9(L) 13.0 - 17.0 g/dl HISTORICAL RESULTS Hct 29.6(L) 39.0 - 52.0 % HISTORICAL RESULTS MCV 94.8 80.0 - 100.0 fl HISTORICAL RESULTS MCH 31.6 27.0 - 33.0 pg HISTORICAL RESULTS MCHC 33.4 32.0 - 36.0 g/dl HISTORICAL RESULTS Rdw 13.0 11.5 - 14.5 % HISTORICAL RESULTS Platelets 248 140 - 400 K/cumm HISTORICAL RESULTS MPV 6.1(L) 7.4 - 10.4 fl HISTORICAL RESULTS Neutrophils 82.8(H) 42.0 - 75.0 % HISTORICAL RESULTS Lymphocytes 7.9(L) 21.0 - 51.0 % HISTORICAL RESULTS Monos 8.6 2.0 - 9.0 % HISTORICAL RESULTS Eosinophils 0.0 0.0 - 10.0 % HISTORICAL RESULTS Basophils 0.7 0.0 - 1.0 % HISTORICAL RESULTS Neutrophils, abs 12.5(H) 1.8 - 7.7 K/cumm HISTORICAL RESULTS Lymphocytes, abs 1.2 1.0 - 4.8 K/cumm HISTORICAL RESULTS Monocytes, absolute 1.3(H) 0.0 - 0.8 K/cumm HISTORICAL RESULTS Eosinophils, abs 0.0 0.0 - 0.5 K/cumm HISTORICAL RESULTS Basophils, abs 0.1 0.0 - 0.2 K/cumm HISTORICAL RESULTS Blood specimen (specimen) 06/13/2013 4:59 AM PHARMACY TECH CUSTOMER SERVICE Lb Jameson MD LAB BLOOD ORDERABLES Final Res ult HISTORICAL RESULTS * (ABNORMAL) Plasma basic metabolic panel (06/13/2013 4:59 AM PHARMACY TECH CUSTOMER SERVICE) Sodium 137 136 - 146 mmol/L HISTORICAL RESULTS K, pl 3.9 3.3 - 4.9 mmol/L HISTORICAL RESULTS Chloride 105 98 - 108 mmol/L HISTORICAL RESULTS CO2 27 22 - 33 mmol/L HISTORICAL RESULTS BUN 9 7 - 18 mg/dl HISTORICAL RESULTS Glucose 120 70 - 140 mg/dl HISTORICAL RESULTS Comment: Glucose is assumed to be non-fasting. ?? Fasting Glucose normal ranges are: 0 days - 2 months: ? 40 mg/dL - 100 mg/dL 2 months - 999 years: ?70 mg/dL - 99 mg/dL Creatinine 0.88 0.50 - 1.50 mg/dl HISTORICAL RESULTS eGFR >60 ml/min/1.7 3 m2 HISTORICAL RESULTS Comment: GFR Reference Range: = > 60 mL/min/1.73 m2 This result has been calculated assuming the patient is Non-. ??If the patient is , please multiply this result by 1.21. The GFR value is not recommended for medication dose adjustment for renal function, creatinine clearance values should be used. Calcium 8.3(L) 8.5 - 10.5 mg/dl HISTORICAL RESULTS Plasma 06/13/2013 4:59 AM PHARMACY TECH CUSTOMER SERVICE us Lb Jameson MD LAB BLOOD ORDERABLES Final Res ult HISTORICAL RESULTS * (ABNORMAL) Blood cell count (CBC), morphologic exam (06/12/2013 4:00 AM PHARMACY TECH CUSTOMER SERVICE) WBC 19.1(H) 4.5 - 11.0 K/cumm HISTORICAL RESULTS RBC 3.37(L) 4.50 - 6.20 M/cumm HISTORICAL RESULTS Hgb 10.8(L) 13.0 - 17.0 g/dl HISTORICAL RESULTS Hct 31.9(L) 39.0 - 52.0 % HISTORICAL RESULTS MCV 94.7 80.0 - 100.0 fl HISTORICAL RESULTS MCH 32.0 27.0 - 33.0 pg HISTORICAL RESULTS MCHC 33.8 32.0 - 36.0 g/dl HISTORICAL RESULTS Rdw 12.9 11.5 - 14.5 % HISTORICAL RESULTS Platelets 288 140 - 400 K/cumm HISTORICAL RESULTS MPV 5.9(L) 7.4 - 10.4 fl HISTORICAL RESULTS Neutrophils 85.0(H) 42.0 - 75.0 % HISTORICAL RESULTS Lymphocytes 6.1(L) 21.0 - 51.0 % HISTORICAL RESULTS Monos 8.8 2.0 - 9.0 % HISTORICAL RESULTS Eosinophils 0.0 0.0 - 10.0 % HISTORICAL RESULTS Basophils 0.1 0.0 - 1.0 % HISTORICAL RESULTS Neutrophils, abs 16.2(H) 1.8 - 7.7 K/cumm HISTORICAL RESULTS Lymphocytes, abs 1.2 1.0 - 4.8 K/cumm HISTORICAL RESULTS Monocytes, absolute 1.7(H) 0.0 - 0.8 K/cumm HISTORICAL RESULTS Eosinophils, abs 0.0 0.0 - 0.5 K/cumm HISTORICAL RESULTS Basophils, abs 0.0 0.0 - 0.2 K/cumm HISTORICAL RESULTS Blood specimen (specimen) 06/12/2013 4:00 AM PHARMACY TECH CUSTOMER SERVICE us Lb Jameson MD LAB BLOOD ORDERABLES Final Res ult HISTORICAL RESULTS * (ABNORMAL) Plasma basic metabolic panel (06/12/2013 4:00 AM PHARMACY TECH CUSTOMER SERVICE) Sodium 136 136 - 146 mmol/L HISTORICAL RESULTS K, pl 4.2 3.3 - 4.9 mmol/L HISTORICAL RESULTS Chloride 103 98 - 108 mmol/L HISTORICAL RESULTS CO2 29 22 - 33 mmol/L HISTORICAL RESULTS BUN 7 7 - 18 mg/dl HISTORICAL RESULTS Glucose 177(H) 70 - 140 mg/dl HISTORICAL RESULTS Comment: Glucose is assumed to be non-fasting. ?? Fasting Glucose normal ranges are: 0 days - 2 months: ? 40 mg/dL - 100 mg/dL 2 months - 999 years: ?70 mg/dL - 99 mg/dL Creatinine 0.90 0.50 - 1.50 mg/dl HISTORICAL RESULTS eGFR >60 ml/min/1.7 3 m2 HISTORICAL RESULTS Comment: GFR Reference Range: = > 60 mL/min/1.73 m2 This result has been calculated assuming the patient is Non-. ??If the patient is , please multiply this result by 1.21. The GFR value is not recommended for medication dose adjustment for renal function, creatinine clearance values should be used. Calcium 8.3(L) 8.5 - 10.5 mg/dl HISTORICAL RESULTS Plasma 06/12/2013 4:00 AM PHARMACY TECH CUSTOMER SERVICE Lb Jameson MD LAB BLOOD ORDERABLES Final Res ult HISTORICAL RESULTS * (ABNORMAL) Blood cell count (CBC), morphologic exam (06/11/2013 3:19 AM PHARMACY TECH CUSTOMER SERVICE) WBC 19.1(H) 4.5 - 11.0 K/cumm HISTORICAL RESULTS RBC 3.42(L) 4.50 - 6.20 M/cumm HISTORICAL RESULTS Hgb 10.9(L) 13.0 - 17.0 g/dl HISTORICAL RESULTS Hct 32.0(L) 39.0 - 52.0 % HISTORICAL RESULTS MCV 93.6 80.0 - 100.0 fl HISTORICAL RESULTS MCH 31.8 27.0 - 33.0 pg HISTORICAL RESULTS MCHC 34.0 32.0 - 36.0 g/dl HISTORICAL RESULTS Rdw 12.6 11.5 - 14.5 % HISTORICAL RESULTS Platelets 320 140 - 400 K/cumm HISTORICAL RESULTS MPV 6.0(L) 7.4 - 10.4 fl HISTORICAL RESULTS Neutrophils 86.9(H) 42.0 - 75.0 % HISTORICAL RESULTS Lymphocytes 5.2(L) 21.0 - 51.0 % HISTORICAL RESULTS Monos 7.0 2.0 - 9.0 % HISTORICAL RESULTS Eosinophils 0.8 0.0 - 10.0 % HISTORICAL RESULTS Basophils 0.1 0.0 - 1.0 % HISTORICAL RESULTS Neutrophils, abs 16.6(H) 1.8 - 7.7 K/cumm HISTORICAL RESULTS Lymphocytes, abs 1.0 1.0 - 4.8 K/cumm HISTORICAL RESULTS Monocytes, absolute 1.3(H) 0.0 - 0.8 K/cumm HISTORICAL RESULTS Eosinophils, abs 0.1 0.0 - 0.5 K/cumm HISTORICAL RESULTS Basophils, abs 0.0 0.0 - 0.2 K/cumm HISTORICAL RESULTS Blood specimen (specimen) 06/11/2013 3:19 AM PHARMACY TECH CUSTOMER SERVICE Lb Jameson MD LAB BLOOD ORDERABLES Final Res ult HISTORICAL RESULTS * (ABNORMAL) Plasma basic metabolic panel (06/11/2013 3:19 AM PHARMACY TECH CUSTOMER SERVICE) Sodium 137 136 - 146 mmol/L HISTORICAL RESULTS K, pl 4.6 3.3 - 4.9 mmol/L HISTORICAL RESULTS Chloride 104 98 - 108 mmol/L HISTORICAL RESULTS CO2 26 22 - 33 mmol/L HISTORICAL RESULTS BUN 10 7 - 18 mg/dl HISTORICAL RESULTS Glucose 167(H) 70 - 140 mg/dl HISTORICAL RESULTS Comment: Glucose is assumed to be non-fasting. ?? Fasting Glucose normal ranges are: 0 days - 2 months: ? 40 mg/dL - 100 mg/dL 2 months - 999 years: ?70 mg/dL - 99 mg/dL Creatinine 1.00 0.50 - 1.50 mg/dl HISTORICAL RESULTS eGFR >60 ml/min/1.7 3 m2 HISTORICAL RESULTS Comment: GFR Reference Range: = > 60 mL/min/1.73 m2 This result has been calculated assuming the patient is Non-. ??If the patient is , please multiply this result by 1.21. The GFR value is not recommended for medication dose adjustment for renal function, creatinine clearance values should be used. Calcium 8.2(L) 8.5 - 10.5 mg/dl HISTORICAL RESULTS Plasma 06/11/2013 3:19 AM PHARMACY TECH CUSTOMER SERVICE Lb Jameson MD LAB BLOOD ORDERABLES Final Res ult HISTORICAL RESULTS documented in this encounter Visit Diagnoses Diagnosis Incisional hernia with obstruction Other digestive system complications Paralytic ileus (CMS/HCC) (HCC) Paralytic ileus Anemia Unspecified anemia Peritoneal adhesions Peritoneal adhesions (postoperative) (postinfection) Essential hypertension Unspecified essential hypertension Hypothyroidism Unspecified hypothyroidism Other specified surgical operation and procedure causing abnormal patient reaction or later complication Place of occurrence, residential institution Personal history of tobacco use, presenting hazards to health Esophageal reflux documented in this encounter Care Teams Emergency Room Physician Relationship Specialty Start Date End Date Ziggy Chapman MD PCP - General 10/18/11 08/19/13 documented as of this encounter
--- OUTSIDE RECORDS SUMMARY | 2024-07-23 06:12 | XMS_ITS | Clinical Summary ---
Author Organization [facility] [address] Address [address] [place] [address] Care Team Providers Care Acetylene Cylinder Packing Mixer Name Role Phone Glen Enamorado DO Primary Care Provider [phone] Allergies No known active allergies Medications Euthyrox 75 mcg tablet Take 1 tablet (75 mcg total) by mouth daily 0 Active amLODIPine (NORVASC) 5 mg tablet Take 1 tablet (5 mg total) by mouth daily 0 Active lisinopriL (PRINIVIL,ZESTR IL) 40 mg tablet Take 1 tablet (40 mg total) by mouth daily 0 Active omeprazole (PriLOSEC) 40 mg capsule Take 1 capsule (40 mg total) by mouth daily 0 Active metFORMIN XR (GLUCOPHAGE XR) 500 mg 24 hr tablet Take 1 tablet (500 mg total) by mouth 2 (two) times a day 0 Active loratadine (CLARITIN) 10 mg tablet loratadine 10 mg tablet Active tacrolimus (PROTOPIC) 0.1 % ointment RUB IN WELL TWICE DAILY TOPICALLY TO RED AREA(S) IN GROIN 0 Active metroNIDAZOLE (METROGEL) 0.75 % gel APPLY TOPICALLY TO FACE DAILY 0 Active cholecalciferol (VITAMIN D-3) 2000 unit capsule 1 capsule (2,000 Units total) Active cyanocobalamin (Vitamin B-12) 1,000 mcg tabletIndicatio ns:Prevention of Vitamin B12 Deficiency Take 1 tablet (1,000 mcg total) by mouth daily Active multivitamin capsule Take 1 capsule by mouth daily Active aspirin 81 mg enteric coated tablet Take 1 tablet (81 mg total) by mouth daily Active metoprolol XL (TOPROL-XL) 50 mg extended release tablet Take 1 tablet (50 mg total) by mouth daily 90 tablet 3 Active Active Problems Problem Noted Date Diagnosed Date Chest pain 05/07/2020 Incisional hernia 03/12/2014 Overview (10/27/2016): Incisional hernia Syncope 12/07/2013 Overview (10/27/2016): Syncope Surgical History Surgery Date Site/Laterality Comments OTHER SURGICAL HISTORY Diverticulitis-s/pcolon resection: APPENDECTOMY Appendectomy CHOLECYSTECTOMY Cholecystectomy APPENDECTOMY CHOLECYSTECTOMY SURGERY FOR CONGENITAL HERNIA Medical History Medical History Date Comments Hx Other Medical Diverticulitis- s/pcolon resection Gastroesophageal reflux disease GERD Hypertension Diabetes mellitus (HCC) Acid indigestion Diverticulitis Family History Medical History Relation Name Comments Alzheimer's disease Brother Alzheimer's disease Father Heart disease Mother Alzheimer's disease Sister Relation Name Status Comments Brother (Age 73) Father (Age 90) Mother (Age 88) Sister Alive Social History Tobacco Use Types Packs/Day Years Used Date Smoking Tobacco: Former Cigarettes Q uit: 05/07/1965 Smokeless Tobacco: Never Tobacco Cessation:Counseling Given: Not Answered Alcohol Use Standard Drinks/Week Comments No 0 (1 standard drink = 0.6 oz pur e alcohol) Sex and Gender Information Value Date Recorded Sex Assigned at Not on file Legal Sex Male 2:26 PM BOTTOM PAINTER Gender Identity Male 06/21/2021 9:06 AM BOTTOM PAINTER Sexual Orientation Bisexual 06/21/2021 9: 15 AM BOTTOM PAINTER Obstetrics History Last Filed Vital Signs Vital Sign Reading Time Taken Comments Blood Pressure 148/62 11/22/2022 1:42 PM CDT Pulse 80 11/22/2022 1:42 PM CDT Temperature 36.4 ??C (97.5 ??F) 06/23/2020 10:[address] Respiratory Rate - - Oxygen Saturation 97% 11/22/2022 1:42 PM CDT Inhaled Oxygen Concentration - - Weight 82.6 kg (182 lb) 11/22/2022 1:42 PM CDT Height 160 cm (5' 3 ) 11/22/2022 1:42 PM CDT Body Mass Index 32.24 11/22/2022 1:42 PM CDT Plan of Treatment Health Maintenance Due Date Last Done Comments Depression Screening 1939 Fall Risk Assessment 1940 DTaP/Tdap/Td Vaccine (1 - Tdap) 1950 Hepatitis B Screening 1957 Zoster Vaccine (1 of 2) 1989 Well Visit 65+ 02/15/2004 Pneumococcal vaccine 65+ (2 of 2 - PCV) 06/05/2014 1 08/05/2012 Influenza Vaccine (#1) 2024 05/14/2013 Insurance MEDICARE [employer] [facility] Care Teams Acetylene Cylinder Packing Mixer Relationship Specialty Start Date End Date Glen Enamorado DO PCP - General Internal Medicine 05/07/20
--- OUTSIDE RECORDS SUMMARY | 2024-07-23 06:12 | XMS_ITS | Referral Summary ---
Author Organization [facility] Address [address] [place] [address] Care Team Providers Care Horse Buyer Name Role Phone Unavailable Primary Care Provider Unavailabl e Source Comments [facility],non-[facility] Affiliates and Associated Physician Practices is amultiple site organization consisting of ambulatory clinics and hospital sitesin [place], [place], [place] and [place]. This disclosure is being madepursuant to the Care Everywhere program and may not contain all information available regarding this patient. Last updated 18.[facility] [employer] Social History Tobacco Use Types Packs/Day Years Used Date Smoking Tobacco: Never Assessed Sex and Gender Information Value Date Recorded Sex Assigned at Not on file Gender Identity Not on file Sexual Orientation Not on file Plan of Treatment Not on file
--- OUTSIDE RECORDS SUMMARY | 2024-07-23 06:12 | XMS_ITS | Encounter Summary ---
Author Organization [facility] Address [address] [place] [address] Care Team Providers Care Planning Lead Name Role Phone Glen Enamorado DO Primary Care Provider [phone] Encounter Details Date Type Department Care Team (Late st Contact Info) Description 05/07/2020 Orders Only [facility] Cardiology [address] [place] [address] ProviderAyla MD [address] [place] [id number] Social History Tobacco Use Types Packs/Day Years Used Date Smoking Tobacco: Former Cigarettes Q uit: 05/07/1965 Smokeless Tobacco: Never Alcohol Use Standard Drinks/Week Comments No 0 (1 standard drink = 0.6 oz pur e alcohol) Sex and Gender Information Value Date Recorded Sex Assigned at Not on file Legal Sex Male 2:26 PM CSR TECHNICIAN Gender Identity Male 06/21/2021 9:06 AM CSR TECHNICIAN Sexual Orientation Bisexual 06/21/2021 9: 15 AM CSR TECHNICIAN documented as of this encounter Plan of Treatment Not on file documented as of this encounter Procedures Procedure Name Priority Date/Time Associated Diagnosis Comments CARDIOLOGY DOCUMENT SCAN Routine 05/07/2020 documented in this encounter Results * SCAN - CARDIOLOGY (05/07/2020) Anatomical Region Laterality Modality Other Historical Provider [facility] RADHA CAREY Final Result documented in this encounter Visit Diagnoses Not on filedocumented in this encounter Care Teams Planning Lead Relationship Specialty Start Date End Date Glen Enamorado DO PCP - General Internal Medicine 05/07/20 documented as of this encounter
--- OUTSIDE RECORDS SUMMARY | 2024-07-23 06:12 | XMS_ITS | Encounter Summary ---
Author Organization [facility] Care Team Providers Care Console Attendant Name Role Phone Ziggy Chapman MD Primary Care Provider [phone] Encounter Details Date Type Department Care Team (Latest Contact Info) Description 06/06/2013 11:46 AM LEARNING MANAGER - 06/06/2013 11:59 PM LEARNING MANAGER Hospital Encounter [facility] Lb Barrios MD [address] [place] [address] Pre-procedural laboratory examination Social History Tobacco Use Types Packs/Day Years Used Date Smoking Tobacco: Former Alcohol Use Standard Drinks/Week Comments No 0 (1 standard drink = 0.6 oz pur e alcohol) Sex and Gender Information Value Date Recorded Sex Assigned at Not on file Legal Sex Male 2:26 PM LEARNING MANAGER Gender Identity Male 06/21/2021 9:06 AM LEARNING MANAGER Sexual Orientation Bisexual 06/21/2021 9: 15 AM LEARNING MANAGER documented as of this encounter Plan of Treatment Not on file documented as of this encounter Procedures Procedure Name Priority Date/Time Associated Diagnosis Comments PLASMA HEPATIC FUNCTION PANEL Routine 06/06/2013 1:03 PM LEARNING MANAGER BLOOD ABO, RH, INDIRECT AB SCREEN Routine 06/06/2013 7:03 AM LEARNING MANAGER DISCHARGE LABORATORY CUMULATIVE REPORT 06/06/2013 documented in this encounter Results * Plasma hepatic function panel (06/06/2013 1:03 PM LEARNING MANAGER) Bilirubin 1.1 0.1 - 1.2 mg/dl HISTORICAL RESULTS Protein, pl 6.8 6.0 - 8.5 g/dl HISTORICAL RESULTS Alb 3.4 3.4 - 5.0 g/dl HISTORICAL RESULTS Alk phos 80 38 - 126 IUnits/L HISTORICAL RESULTS ALT 25 17 - 63 IUnits/L HISTORICAL RESULTS AST 22 15 - 41 IUnits/L HISTORICAL RESULTS Bilirubin, direct 0.2 0.0 - 0.4 mg/dl HISTORICAL RESULTS Plasma 06/06/2013 1:03 PM LEARNING MANAGER Result [facility] Lb Barrios MD LAB BLOOD ORDERABLES Final Res ult HISTORICAL RESULTS * Blood ABO, Rh, indirect ab screen (06/06/2013 7:03 AM LEARNING MANAGER) Pathologist [facility] ABO typing A HISTORICA L RESULTS Rho(D) typing Positive HISTOR ICAL RESULTS Robbin, indirect Negative HISTORICAL RESULTS Blood specimen (specimen) 06/06/2013 7:03 AM LEARNING MANAGER Narrative HISTORICAL RESULTS - 06/06/2013 10:43 AM LEARNING MANAGER DOS 06/10/13 NO TRANS Lb Barrios MD LAB BLOOD ORDERABLES Final Res ult HISTORICAL RESULTS * DISCHARGE LABORATORY CUMULATIVE REPORT (06/06/2013) Narrative 06/06/2013 Ordered by an unspecified provider. Historical Provider LAB BLOOD ORDERABLES Jackeline l Result documented in this encounter Visit Diagnoses Diagnosis Pre-procedural laboratory examination documented in this encounter Care Teams Console Attendant Relationship Specialty Start Date End Date Ziggy Chapman MD PCP - General 10/18/11 08/19/13 documented as of this encounter
--- OUTSIDE RECORDS SUMMARY | 2024-07-23 06:12 | XMS_ITS | Encounter Summary ---
Author Organization [facility] Address [address] [place] [address] Care Team Providers Care Chrome Polisher Name Role Phone Glen Enamorado DO Primary Care Provider [phone] Encounter Details Date Type Department Care Team (Late st Contact Info) Description 06/23/2020 Documentation [facility] [address] [place] [address] Dimas Bauer MD [address] [place], [place] [id number] Social History Tobacco Use Types Packs/Day Years Used Date Smoking Tobacco: Former Cigarettes Q uit: 05/07/1965 Smokeless Tobacco: Never Alcohol Use Standard Drinks/Week Comments No 0 (1 standard drink = 0.6 oz pur e alcohol) Sex and Gender Information Value Date Recorded Sex Assigned at Not on file Legal Sex Male 2:26 PM VACUUM WORKER Gender Identity Male 06/21/2021 9:06 AM VACUUM WORKER Sexual Orientation Bisexual 06/21/2021 9: 15 AM VACUUM WORKER documented as of this encounter Ordered Prescriptions Prescription Sig Dispense Quantity Refills Last Filled Start Date End Date atorvastatin (LIPITOR) 20 mg tablet Take 1 tablet (20 mg total) by mouth daily 30 tablet 11 06/23/2020 02/22/2021 isosorbide mononitrate ER (IMDUR) 30 mg 24 hr tablet Take 1 tablet (30 mg total) by mouth daily 30 tablet 11 06/23/2020 06/21/2021 metoprolol XL (TOPROL-XL) 50 mg extended release tablet Take 1 tablet (50 mg total) by mouth daily 30 tablet 11 06/23/2020 07/30/2021 documented in this encounter Progress Notes * Dimas Bauer MD - 06/23/2020 12:37 PM CST The patient seen today for stress echocardiogram. The study is mildly abnormal. He is going to be started on aspirin, metoprolol, isosorbide and atorvastatin and I am going to reduce the dose of his lisinopril and schedule follow-up in the part july. UM WORKER documented in this encounter Plan of Treatment Not on file documented as of this encounter Visit Diagnoses Not on filedocumented in this encounter Care Teams Chrome Polisher Relationship Specialty Start Date End Date Glen Enamorado DO PCP - General Internal Medicine 05/07/20 documented as of this encounter
--- OUTSIDE RECORDS SUMMARY | 2024-07-23 06:12 | XMS_ITS | Encounter Summary ---
Author Organization [facility] Address [address] [place] [address] Care Team Providers Care Supervisor Sign Shop Name Role Phone Glen Enamorado DO Primary Care Provider [phone] Encounter Details Date Type Department Care Team (Late st Contact Info) Description 06/11/2021 Orders Only [facility] Cardiology [address] [place] [address] Dimas Bauer MD [address] [place], [place] [id number] Social History Tobacco Use Types Packs/Day Years Used Date Smoking Tobacco: Former Cigarettes Q uit: 05/07/1965 Smokeless Tobacco: Never Alcohol Use Standard Drinks/Week Comments No 0 (1 standard drink = 0.6 oz pur e alcohol) Sex and Gender Information Value Date Recorded Sex Assigned at Not on file Legal Sex Male 2:26 PM FOOT DRILL OPERATOR Gender Identity Male 06/21/2021 9:06 AM FOOT DRILL OPERATOR Sexual Orientation Bisexual 06/21/2021 9: 15 AM FOOT DRILL OPERATOR documented as of this encounter Plan of Treatment Not on file documented as of this encounter Procedures Procedure Name Priority Date/Time Associated Diagnosis Comments CARDIOLOGY DOCUMENT SCAN Routine 06/11/2021 documented in this encounter Results * SCAN - CARDIOLOGY (06/11/2021) Anatomical Region Laterality Modality Other us Dimas Bauer MD CV CARDIAC SERVICES PROC EDURES Final Result documented in this encounter Visit Diagnoses Not on filedocumented in this encounter Care Teams Supervisor Sign Shop Relationship Specialty Start Date End Date Glen Enamorado DO PCP - General Internal Medicine 05/07/20 documented as of this encounter
--- OUTSIDE RECORDS SUMMARY | 2024-07-23 06:12 | XMS_ITS | Encounter Summary ---
Author Organization [facility] Address [address] [place] [address] Care Team Providers Care Instant Print Operator Name Role Phone Glen Enamorado DO Primary Care Provider [phone] Encounter Details Date Type Department Care Team (Late st Contact Info) Description 06/09/2021 Orders Only [facility] Cardiology [address] [place] [id number] Dimas Bauer MD [address] [place], [place] [id number] Social History Tobacco Use Types Packs/Day Years Used Date Smoking Tobacco: Former Cigarettes Q uit: 05/07/1966 Smokeless Tobacco: Never Alcohol Use Standard Drinks/Week Comments No 0 (1 standard drink = 0.6 oz pur e alcohol) Sex and Gender Information Value Date Recorded Sex Assigned at Not on file Legal Sex Male 2:26 PM GRAVEL ROOFER Gender Identity Male 06/21/2021 9:06 AM GRAVEL ROOFER Sexual Orientation Bisexual 06/21/2021 9: 15 AM GRAVEL ROOFER documented as of this encounter Plan of Treatment Not on file documented as of this encounter Procedures Procedure Name Priority Date/Time Associated Diagnosis Comments CARDIOLOGY DOCUMENT SCAN Routine 06/09/2021 documented in this encounter Results * SCAN - CARDIOLOGY (06/09/2021) Anatomical Region Laterality Modality Other us Dimas Bauer MD CV CARDIAC SERVICES PROC EDURES Final Result documented in this encounter Visit Diagnoses Not on filedocumented in this encounter Care Teams Instant Print Operator Relationship Specialty Start Date End Date Glen Enamorado DO PCP - General Internal Medicine 05/07/20 documented as of this encounter
--- OUTSIDE RECORDS SUMMARY | 2024-07-23 06:12 | XMS_ITS | Encounter Summary ---
Author Organization [facility] Address [address] [place] [address] Care Team Providers Care Nuclear Reactor Engineer Name Role Phone Glen Enamorado DO Primary Care Provider [phone] Reason for Visit * Reason Comments Follow-up 3 month fu Encounter Details Date Type Department Care Team (Late st Contact Info) Description 09/16/2021 10:00 AM MEDICAL EDUCATION SPECIALIST Office Visit [facility] Cardiology [address] [place] [address] Dimas Bauer MD [address] [place] [address] Other chest pain (Primary Dx) Social History Tobacco Use Types Packs/Day Years Used Date Smoking Tobacco: Former Cigarettes Q uit: 05/07/1965 Smokeless Tobacco: Never Alcohol Use Standard Drinks/Week Comments No 0 (1 standard drink = 0.6 oz pur e alcohol) Sex and Gender Information Value Date Recorded Sex Assigned at Not on file Legal Sex Male 2:26 PM MEDICAL EDUCATION SPECIALIST Gender Identity Male 06/21/2021 9:06 AM MEDICAL EDUCATION SPECIALIST Sexual Orientation Bisexual 06/21/2021 9: 15 AM MEDICAL EDUCATION SPECIALIST documented as of this encounter Last Filed Vital Signs Vital Sign Reading Time Taken Comments Blood Pressure 136/68 09/16/2021 9:56 AM MEDICAL EDUCATION SPECIALIST Pulse 69 09/16/2021 9:56 AM MEDICAL EDUCATION SPECIALIST Temperature - - Respiratory Rate - - Oxygen Saturation 98% 09/16/2021 9:56 AM MEDICAL EDUCATION SPECIALIST Inhaled Oxygen Concentration - - Weight 83 kg (183 lb) 09/16/2021 9:56 AM MEDICAL EDUCATION SPECIALIST Height 160 cm (5' 3 ) 09/16/2021 9:56 AM MEDICAL EDUCATION SPECIALIST Body Mass Index 32.42 09/16/2021 9:56 AM MEDICAL EDUCATION SPECIALIST documented in this encounter Progress Notes * Dimas Bauer MD - 09/16/2021 10:00 AM CST [facility] FOLLOW UP 09/16/2021 Loy Gonzalez is a 81 y.o. male who presents for follow up of coronary artery disease. This is a patient that was referred to see me in the past because of symptoms of some exertional shortness of breath that were very mild. He had a mildly abnormal looking stress test and was seen in the office in consultation. Because of his advanced age in mild symptomatology medical therapy was recommended and with that he did well. Was seen in the office a couple of times. He was then hospitalized in May of 2021 at [facility] with some more chest pain. He at that time underwent a coronary angiogram finding no significant coronary disease. He had mild plaquing in the proximal aspect of the right coronary and the LAD but had no flow-limiting disease and a vigorous left ventricle. It was myimpression that his symptoms were not cardiac in nature. He was seen in follow-up after that in theoffice by the nurse practitioner. Appropriately isosorbide treatment was stopped. The patient returns to see me for previously scheduled follow-up. He is doing well and does not describe any symptoms of a cardiac nature. Had a long discussion with the patient and told him that since he had essentially a negative coronary angiogram in May he probably does not need to keep seeing me about this type of modest coronary artery plaquing which I doubt will cause him any problemsin the foreseeable future. He can follow-up with his PCP in this situation and I will be happy to see him p.r.n. REVIEW OF SYSTEMS General ROS: negative for [...] for dry skin, eczema, pruritus and rash HOME MEDICATIONS Current Outpatient Medications: ??? amLODIPine (NORVASC) 5 mg tablet, Take 5 mg by mouth daily, Disp: , Rfl: ??? aspirin 81 mg enteric coated tablet, Take 81 mg by mouth daily, Disp: , Rfl: ??? cholecalciferol (VITAMIN D-3) 2000 unit capsule, 2,000 Units, Disp: , Rfl: ??? cyanocobalamin (Vitamin B-12) 1,000 mcg tablet, Take 1,000 mcg by mouth daily, Disp: , Rfl: ??? Euthyrox 75 mcg tablet, Take 75 mcg by mouth daily, Disp: , Rfl: ??? lisinopriL (PRINIVIL,ZESTRIL) 40 mg tablet, Take 40 mg by mouth daily, Disp: , Rfl: ??? loratadine (CLARITIN) 10 mg tablet, loratadine 10 mg tablet, Disp: , Rfl: ??? metFORMIN XR (GLUCOPHAGE XR) 500 mg 24 hr tablet, Take 500 mg by mouth 2 (two) times a day, Disp: , Rfl: ??? metoprolol XL (TOPROL-XL) 50 mg extended release tablet, Take 1 tablet by mouth once daily, Disp: 90 tablet, Rfl: 2 ??? metroNIDAZOLE (METROGEL) 0.75 % gel, APPLY TOPICALLY TO FACE DAILY, Disp: , Rfl: ??? multivitamin capsule, Take 1 capsule by mouth daily, Disp: , Rfl: ??? omeprazole (PriLOSEC) 40 mg capsule, Take 40 mg by mouth daily, Disp: , Rfl: ??? tacrolimus (PROTOPIC) 0.1 % ointment, RUB IN WELL TWICE DAILY TOPICALLY TO RED AREA(S) IN GROIN, Disp: , Rfl: LABS AND OTHER DIAGNOSTIC TESTS No results found for: CHOL No results found for: HDL No results found for: LDLCALC No results found for: TRIG No results found for: CHOLHDL Lab Results Component Value Date HGB 10.1 (L) 06/17/2013 HCT 30.6 (L) 06/17/2013 MCV 95.9 06/17/2013 No lab exists for component: LABALBU PHYSICAL EXAM Vitals BP 136/68 (BP Location: Left arm, Patient Position: Sitting) Pulse 69 Ht 160 cm (5' 3 ) Wt 83 kg (183 lb) SpO2 98% BMI 32.42 kg/m?? Physical Examination: General appearance - alert, well appearing, and in no distress, oriented to person, place, and time and acyanotic, in no respiratory distress Mental status [...] normal rate, regular rhythm, normal S1, S2, no murmurs, rubs, clicks or gallops, no JVD Abdomen [...] rashes, no suspicious skin lesions noted ASSESSMENT Loy was seen today for follow-up. Diagnoses and all orders for this visit: Other chest pain PLAN/RECOMMENDATIONS I will see this patient at in a p.r.n. fashion at this time since his angiogram in May did notshow any significant coronary disease Dimas Bauer MD CAL EDUCATION SPECIALIST documented in this encounter Plan of Treatment Not on file documented as of this encounter Visit Diagnoses Diagnosis Other chest pain- Primary documented in this encounter Care Teams Nuclear Reactor Engineer Relationship Specialty Start Date End Date Glen Enamorado DO PCP - General Internal Medicine 05/07/20 documented as of this encounter
--- OUTSIDE RECORDS SUMMARY | 2024-07-23 06:12 | XMS_ITS | Encounter Summary ---
Author Organization [facility] Address [address] [place] [address] [address] Team Prov[address] Care Drive Thru Order Taker Name Role Phone Glen Enamorado DO Primary Care Provider [phone] Reason for Visit * Reason Comments Chest Pain Overdue 1 year mirio w up. Encounter Details Date Type Department Care Team (Late st Contact Info) Description 11/22/2022 1:45 PM CDT Office Visit [facility] Cardiology [address] [place] [address] Dimas Bauer MD [address] [facility] [address] [place] [address] Other chest pain (Primary Dx) [...] on file Legal Sex Male 2:26 PM GOLD BUYER Gender Identity Male 06/21/2021 9:06 AM GOLD BUYER Sexual Orientation Bisexual 06/21/2021 9: 15 AM GOLD BUYER documented as of this encounter Last Filed Vital Signs Vital Sign Reading Time Taken Comments Blood Pressure 148/62 11/22/2022 1:42 PM CDT Pulse 80 11/22/2022 1:42 PM CDT Temperature - - Respiratory Rate - - Oxygen Saturation 97% 11/22/2022 1:42 PM CDT Inhaled Oxygen Concentration - - Weight 82.6 kg (182 lb) 11/22/2022 1:42 PM CDT Height 160 cm (5' 3 ) 11/22/2022 1:42 PM CDT Body Mass Index 32.24 11/22/2022 1:42 PM CDT documented in this encounter Progress Notes * Dimas Bauer MD - 11/22/2022 1:45 PM CDT [facility] 11/22/2022 Loy Gonzalez is a 82 y.o. male who presents for follow up [...] then hospitalized in May of 2021 at [facility] with some more chest pain. He at [...] isosorbide treatment was stopped. The patient returns today for office follow-up. I saw him in August of 2021 and at that time essentially signed off of his case as he did not really have any significant cardiac pathology. He is doing very well and describes no cardiovascular symptoms of any kind he is experiencing no chest pain symptoms or anything else to complain about at this point. He indicated he required today's appointment only because he was told that he had to come here to have his beta- ezequiel renewed. The patient is taking metoprolol but does not have any specific cardiac pathology or diagnosis. REVIEW OF SYSTEMS General ROS: negative for [...] and rash HOME MEDICATIONS Current Outpatient Medications: amLODIPine (NORVASC) 5 mg tablet, Take 1 tablet (5 mg total) by mouth daily, Disp: , Rfl: aspirin 81 mg enteric coated tablet, Take 1 tablet (81 mg total) by mouth daily, Disp: , Rfl: cholecalciferol (VITAMIN D-3) 2000 unit capsule, 1 capsule (2,000 Units total), Disp: , Rfl: cyanocobalamin (Vitamin B-12) 1,000 mcg tablet, Take 1 tablet (1,000 mcg total) by mouth daily, Disp: , Rfl: Euthyrox 75 mcg tablet, Take 1 tablet (75 mcg total) by mouth daily, Disp: , Rfl: lisinopriL (PRINIVIL,ZESTRIL) 40 mg tablet, Take 1 tablet (40 mg total) by mouth daily, Disp: , Rfl: loratadine (CLARITIN) 10 mg tablet, loratadine 10 mg tablet, Disp: , Rfl: metFORMIN XR (GLUCOPHAGE XR) 500 mg 24 hr tablet, Take 1 tablet (500 mg total) by mouth 2 (two) times a day, Disp: , Rfl: metoprolol XL (TOPROL-XL) 50 mg extended release tablet, Take 1 tablet (50 mg total) by mouth daily, Disp: 90 tablet, Rfl: 0 metroNIDAZOLE (METROGEL) 0.75 % gel, APPLY TOPICALLY TO FACE DAILY, Disp: , Rfl: multivitamin capsule, Take 1 capsule by mouth daily, Disp: , Rfl: omeprazole (PriLOSEC) 40 mg capsule, Take 1 capsule (40 mg total) by mouth daily, Disp: , Rfl: tacrolimus (PROTOPIC) 0.1 % ointment, RUB IN [...] for component: LABALBU PHYSICAL EXAM Vitals BP 148/62 (BP Location: Right arm, Patient Position: Sitting) Pulse 80 Ht 160 cm (5' 3 ) Wt 82.6 kg (182 lb) SpO2 97% BMI 32.24 kg/m?? Physical Examination: General appearance - alert, [...] noted ASSESSMENT Loy was seen today for chest pain. Diagnoses and all orders for this visit: Other chest pain PLAN/RECOMMENDATIONS I will see this patient at in a p.r.n. The patient can follow-up with his PCP and if he requires metoprolol his beta- ezequiel can be renewed with them he does not need to maintain appointments in our office simply to have metoprolol refilled. Dimas Bauer MD documented in this encounter Plan of Treatment Not on file documented as of this encounter Visit Diagnoses Diagnosis Other chest pain- Primary documented in this encounter Care Teams Drive Thru Order Taker Relationship Specialty Start Date End Date Glen Enamorado DO PCP - General Internal Medicine 05/07/20 documented as of this encounter
--- OUTSIDE RECORDS SUMMARY | 2024-07-23 06:12 | XMS_ITS | Encounter Summary ---
Author Organization [facility] Address [address] [place] [address] Care Team Providers Care Disbursing Officer Name Role Phone Glen Enamorado DO Primary Care Provider [phone] Reason for Visit * Reason Comments Follow-up Encounter Details Date Type Department Care Team (Late st Contact Info) Description 06/21/2021 2:00 PM INTERVENTIONAL RADIOLOGY TECHNOLOGIST Office Visit [facility] Cardiology [address] [facility] [address] [facility] [address] [place] [address] Tamika Salas, ELIEZER [address] [facility] [address] [place] [address] Other chest pain (Primary Dx); Status post coronary angiogram; Dyspnea on exertion; Idiopathic hypotension Social History Tobacco Use Types Packs/Day Years Used Date Smoking Tobacco: Former Cigarettes Q uit: 05/07/1965 Smokeless Tobacco: Never Alcohol Use Standard Drinks/Week Comments No 0 (1 standard drink = 0.6 oz pur e alcohol) Sex and Gender Information Value Date Recorded Sex Assigned at Not on file Legal Sex Male 2:26 PM INTERVENTIONAL RADIOLOGY TECHNOLOGIST Gender Identity Male 06/21/2021 9:06 AM INTERVENTIONAL RADIOLOGY TECHNOLOGIST Sexual Orientation Bisexual 06/21/2021 9: 15 AM INTERVENTIONAL RADIOLOGY TECHNOLOGIST documented as of this encounter Last Filed Vital Signs Vital Sign Reading Time Taken Comments Blood Pressure 122/66 06/21/2021 2:04 PM INTERVENTIONAL RADIOLOGY TECHNOLOGIST Pulse 71 06/21/2021 2:04 PM INTERVENTIONAL RADIOLOGY TECHNOLOGIST Temperature - - Respiratory Rate - - Oxygen Saturation 97% 06/21/2021 2:04 PM INTERVENTIONAL RADIOLOGY TECHNOLOGIST Inhaled Oxygen Concentration - - Weight 82.9 kg (182 lb 12.8 oz) 06/21/2021 2:04 PM INTERVENTIONAL RADIOLOGY TECHNOLOGIST Height 160 cm (5' 3 ) 06/21/2021 2:04 PM INTERVENTIONAL RADIOLOGY TECHNOLOGIST Body Mass Index 32.38 06/21/2021 2:04 PM INTERVENTIONAL RADIOLOGY TECHNOLOGIST documented in this encounter Progress Notes * Tamika Salas NP - 06/21/2021 2:00 PM CST Images from the original note were not included. [facility] Cardiology [address] [place] [address] Date of Visit: 06/21/2021 Patient ID: Loy Gonzalez [id number] Chief Complaint: Loy Gonzalez is a 81 y.o. male who is an established patient of Dr. Bauer returning to the office for hospital follow-up after he was admitted for evaluation of chest pain. History of Present Illness: Loy Gonzalez is [...] told that he had to see a director of social media marketing SARAH. He was therefore given this appointment [...] year whenhe took a vacation to the [facility] in [place] at about 8000 ft elevation he was having these symptoms in a more notable fashion. He has never been known to have coronary artery disease in the past he did have some symptoms of palpitations in the past and had a LINQ event monitor placed by a different director of social media marketing this was removed after 3 years of monitoring because the battery was exhausted andthere were no significant arrhythmias identified. His primary health problems mostly include hypertension and diabetes which are under good control with medication. He has had a previous cholecystectomy and appendectomy as well. Twelve lead electrocardiogram in the office is within normal limits. ?? 07/30/[address] Bauer: Patient had a stress echocardiogram done in May. The study was very mildly abnormal. After long discussion he opted for medical therapy of this. I a beta-ezequiel and oral nitrates were added to his medical regimen. Since being started on the above regimen he has had no further symptoms of chest pain. He is not [...] I agree with 02/22/2021 office visit with TREASURER: He is here for routine follow-up. Atorvastatin [...] just got back from a vacation at [facility]. He noticed some dyspnea walking up hills but this does not seem any new or different, perhaps a little worse compared to 1-2 years ago. He denies chest pain. He was also having some feet and ankle swelling on his trip but it has been better since he is back home. 06/21/2021 hospital follow-up visit with TREASURER: He was hospitalized at [place] on 06/08/2021 for evaluation of chest pain. Cardiac catheterization was performed by Dr. Bauer the following day whichshowed right-sided dominant circulation with minimal atherosclerosis in the proximal LAD and proximal RCA but no flow- limiting disease. Echocardiogram showed normal LV size and systolic function withEF 65-70%, grade 1 diastolic dysfunction, mild MR and mild pulmonic regurg. He then had problems with significant hypotension that occurred when he was resting in bed and therefore was not orthostatic gabapentin and isosorbide were discontinued. In at the patient's request rosuvastatin was discontinued due to complaint of myalgias. Today he reports feeling better. He has had no more chest pain and no more incidence of low blood pressure. Daily BP checks at home have ranged 121/66 to 158/70 withmost readings in the 140s over 70 and heart rate in the 60s. He had some bruising on the right thigh after the catheterization but no pain, swelling or bleeding in the groin. Records that I personally reviewed on the day of this visit include: (the interpretation is outlined in the HPI above) 02/22/2021 office note from myself, May 2021 [facility] records as mentioned above I have also reviewed: allergies, current medications, past family history, past medical history, past social history, past surgical history and problem list Review of Systems Constitutional: Negative for diaphoresis, fever, malaise/fatigue, weight gain and weight loss. HENT: Negative for hearing loss. Eyes: Negative for visual disturbance. Cardiovascular: Negative for chest pain, claudication, leg swelling, orthopnea, palpitations, paroxysmal nocturnal dyspnea and syncope. Respiratory: Positive for shortness of breath. Negative for cough, hemoptysis, sleep disturbances due to breathing, snoring and wheezing. Hematologic/Lymphatic: Does not bruise/bleed easily. Skin: Negative for poor wound healing and rash. Musculoskeletal: Negative for joint pain and myalgias. Gastrointestinal: Positive for diarrhea (He thinks it is secondary to anxiety). Negative for heartburn, nausea and vomiting. Genitourinary: Negative for hematuria. Neurological: Negative for dizziness, headaches and light-headedness. Psychiatric/Behavioral: Negative for depression. The patient is not nervous/anxious. Vital Signs: BP 122/66 (BP Location: Right arm, Patient Position: Sitting) Pulse 71 Ht 160 cm (5' 3 ) Wt 82.9 kg (182 lb 12.8 oz) SpO2 97% BMI 32.38 kg/m?? Physical Exam Constitutional: General: He is [...] soft. Tenderness: There is no abdominal tenderness. Skin: General: Skin is warm and dry. [...] orders for this visit: Other chest pain (Primary) Status post coronary angiogram Dyspnea on exertion Idiopathic hypotension Plan/Recommendations: He was hospitalized for evaluation of chest pain and cardiac catheterization showed minimal nonobstructive disease in the proximal LAD and proximal RCA. Rosuvastatin was stopped at the patient's request because of ongoing myalgias. He has had no recurrence of chest pain since discharge. Continue aspirin, lisinopril and metoprolol. He reports ongoing mild dyspnea on exertion which seems like it his gradually gotten worse over time. Echocardiogram done during his recent hospitalization was pretty unremarkable with normal LV systolic function, grade 1 diastolic dysfunction and mild regurgitation at the mitral and pulmonic valves. I reassured him that we have not identified a cardiac reason for his shortness of breath. I encouraged him to continue being active as tolerated. He has no activity restrictions at this point. He was having unexplained episodes of hypotension during the hospitalization. He has not had any further episodes since discharge. Remain off gabapentin and isosorbide. He may resume driving. Return to the office to see Dr. Bauer in August as previously scheduled. Call us sooner with questions or concerns. ASHLEY Barnett- Nurse Practitioner with [facility] This note is dictated and transcribed using [employer] Direct Software. Private Investigator variancesmay occur. Despite proofreading, typographical errors may occur. RVENTIONAL RADIOLOGY TECHNOLOGIST documented in this encounter Plan of Treatment Not on file documented as of this encounter Visit Diagnoses Diagnosis Other chest pain- Primary Status post coronary angiogram Other postprocedural status Dyspnea on exertion Other dyspnea and respiratory abnormality Idiopathic hypotension Unspecified hypotension documented in this encounter Discontinued Medications Medication Sig Discontinue Reason Start Date End Da te rosuvastatin (CRESTOR) 10 mg tablet Take 10 mg by mouth every other day Discontinued by another clinician 01/21/2021 06/21/2021 isosorbide mononitrate ER (IMDUR) 30 mg 24 hr tablet Take 1 tablet (30 mg total) by mouth daily Therapy completed 06/23/2020 06/21/2021 documented as of this encounter Historical Medications * This list may reflect changes made after this encounter. aspirin 81 mg enteric coated tablet Take 1 tablet (81 mg total) by mouth daily added in this encounter Care Teams Disbursing Officer Relationship Specialty Start Date End Date Glen Enamorado DO PCP - General Internal Medicine 05/07/20 documented as of this encounter
--- OUTSIDE RECORDS SUMMARY | 2024-07-23 06:12 | XMS_ITS | Encounter Summary ---
Author Organization [facility] Address [address] [place] [address] Care Team Providers Care Commercial Or Institutional Cleaner Name Role Phone Glen Enamorado DO Primary Care Provider [phone] Encounter Details Date Type Department Care Team (Late st Contact Info) Description 07/08/2020 Telephone [facility] Cardiology [address] [place] [address] Dimas Bauer MD [address] [place] [address] Social History Tobacco Use Types Packs/Day Years Used Date Smoking Tobacco: Former Cigarettes Q uit: 05/07/1965 Smokeless Tobacco: Never Alcohol Use Standard Drinks/Week Comments No 0 (1 standard drink = 0.6 oz pur e alcohol) Sex and Gender Information Value Date Recorded Sex Assigned at Not on file Legal Sex Male 2:26 PM TECHNICAL EDITOR Gender Identity Male 06/21/2021 9:06 AM TECHNICAL EDITOR Sexual Orientation Bisexual 06/21/2021 9: 15 AM TECHNICAL EDITOR documented as of this encounter Miscellaneous Notes * Telephone Encounter - Hodan Rod RN - 07/08/2020 4:21 PM CST From pts my chart. I instructed the pt that this can be common for the Isosorbide since it dilates the blood vessels. He can try taking some tylenol to see if that helps. Often the headaches improve over a couple of weeks. If it is to bothersome or does not improve, let us know. Please advise if you would like to do anything else. ----- Message from Loy Gonzalez sent at 07/08/2020 10:21 AM TECHNICAL EDITOR ----- Regarding: Non-Urgent Medical Question Contact: I began taking the new medication you prescribed on 06/24/2020. The meds are: Isosorb Costilla ER 30MG; Metoprolol ER 50MG ; Atorvastatin 20MG. I take the Isosorb with Breakfast, Metoprolol with evening meal , Atorvastatin at bedtime. Since I started these meds I get a headache, like Sinus, in back of my head everyday starting around noon and increases in intensity through evening. I don't have it in morning. Is this due to the medicine or maybe coincidence? I have had sinus headaches in the past but not usually in back of head. Is this normal?? Please advise. NICAL EDITOR NICAL EDITOR documented in this encounter Plan of Treatment Not on file documented as of this encounter Visit Diagnoses Not on filedocumented in this encounter Care Teams Commercial Or Institutional Cleaner Relationship Specialty Start Date End Date Glen Enamorado DO PCP - General Internal Medicine 05/07/20 documented as of this encounter
--- OUTSIDE RECORDS SUMMARY | 2024-07-23 06:12 | XMS_ITS | Encounter Summary ---
Author Organization [facility] Address [address] [place] [address] Care Team Providers Care Mail Deliverer Name Role Phone Glen Enamorado DO Primary Care Provider [phone] Encounter Details Date Type Department Care Team (Late st Contact Info) Description 06/07/2021 Orders Only [facility] Cardiology [address] [place] [address] Jana Anderson NP [address] [place] [address] Social History Tobacco Use Types Packs/Day Years Used Date Smoking Tobacco: Former Cigarettes Q uit: 05/07/1965 Smokeless Tobacco: Never Alcohol Use Standard Drinks/Week Comments No 0 (1 standard drink = 0.6 oz pur e alcohol) Sex and Gender Information Value Date Recorded Sex Assigned at Not on file Legal Sex Male 2:26 PM BATH ATTENDANT Gender Identity Male 06/21/2021 9:06 AM BATH ATTENDANT Sexual Orientation Bisexual 06/21/2021 9: 15 AM BATH ATTENDANT documented as of this encounter Plan of Treatment Not on file documented as of this encounter Procedures Procedure Name Priority Date/Time Associated Diagnosis Comments CARDIOLOGY DOCUMENT SCAN Routine 06/07/2021 documented in this encounter Results * SCAN - CARDIOLOGY (06/07/2021) Anatomical Region Laterality Modality Other Jana Anderson NP CV CARDIAC SERVICES PROCEDUR ES Final Result documented in this encounter Visit Diagnoses Not on filedocumented in this encounter Care Teams Mail Deliverer Relationship Specialty Start Date End Date Glen Enamorado DO PCP - General Internal Medicine 05/07/20 documented as of this encounter
--- OUTSIDE RECORDS SUMMARY | 2024-07-23 06:12 | XMS_ITS | Encounter Summary ---
Author Organization [facility] Address [address] [place] [address] Care Team Providers Care Marina Porter Name Role Phone Glen Enamorado DO Primary Care Provider [phone] Encounter Details Date Type Department Care Team (Late st Contact Info) Description 09/23/2022 Telephone [facility] Cardiology [address] [place] [address] Dimas Bauer MD [address] [place] [address] Social History Tobacco Use Types Packs/Day Years Used Date Smoking Tobacco: Former Cigarettes Q uit: 05/07/1965 Smokeless Tobacco: Never Alcohol Use Standard Drinks/Week Comments No 0 (1 standard drink = 0.6 oz pur e alcohol) Sex and Gender Information Value Date Recorded Sex Assigned at Not on file Legal Sex Male 2:26 PM RACE RELATIONS ADVISER Gender Identity Male 06/21/2021 9:06 AM RACE RELATIONS ADVISER Sexual Orientation Bisexual 06/21/2021 9: 15 AM RACE RELATIONS ADVISER documented as of this encounter Ordered Prescriptions Prescription Sig Dispense Quantity Refills Last Filled Start Date End Date metoprolol XL (TOPROL-XL) 50 mg extended release tablet Take 1 tablet (50 mg total) by mouth daily 90 tablet 09/23/2022 documented in this encounter Miscellaneous Notes * Telephone Encounter - Socorro Carreno MA - 09/23/2022 1:25 PM RACE RELATIONS ADVISER Refill sent until appointment RELATIONS ADVISER * Telephone Encounter - Tavia Solano - 09/23/2022 11:43 AM CST Pt requesting refill for metoprolol 50 mg. Pt scheduled with [facility] on 11/22. Contact: RELATIONS ADVISER documented in this encounter Plan of Treatment Not on file documented as of this encounter Visit Diagnoses Not on filedocumented in this encounter Discontinued Medications Medication Sig Discontinue Reason Start Date End Da te metoprolol XL (TOPROL-XL) 50 mg extended release tablet Take 1 tablet by mouth once daily Reorder 03/04/2022 09/23/2022 documented as of this encounter Care Teams Marina Porter Relationship Specialty Start Date End Date Glen Enamorado DO PCP - General Internal Medicine 05/07/20 documented as of this encounter
--- OUTSIDE RECORDS SUMMARY | 2024-07-23 06:12 | XMS_ITS | Patient Health Summary ---
Author Organization [facility] Address [address] [place] [address] Care Team Providers Care Marketer Name Role Phone Unavailable Primary Care Provider Unavailabl e Note from [facility],non-owned Affiliates and Associated Physician Practices is amultiple site organization consisting of ambulatory clinics and hospital sitesin [place], [place], [place] and [place]. This disclosure is being madepursuant to the Care Everywhere program and may not contain all information available regarding this patient. Last updated 18.[facility] Social History Tobacco Use Types Packs/Day Years Used Date Smoking Tobacco: Never Assessed Sex and Gender Information Value Date Recorded Sex Assigned at Not on file Gender Identity Not on file Sexual Orientation Not on file Procedures * DERMATOPATHOLOGY(Performed 10/10/2022) Results * DERMATOPATHOLOGY (10/10/2022 12:00 AM CDT) Case Report Dermatopathology Report ? Case: [id number] ? Authorizing Provider: ??Martin Wooten MD ?Collected: ? 10/10/2022 12:00 AM ? Ordering Location: ? [facility] Care DermPath Lab ?Received: ?10/10/2022 02:56 PM ? Pathologist: ? Susi Vincent, ? MD ? Specimen: ?Skin, left upper forehead ? 3 12:34 PM CDT DERMATOPATHOLOGY LABORATORY Final Diagnosis Specimen A. 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 SCC. Please Check Margins. 3 12:34 PM T DERMATOPATHOLOGY LABORATORY Gross Description Specimen A: Received is one formalin filled container labeled with the patient's name and designated left upper forehead. The specimen consists of a curettage and desiccation biopsy measuring [id number], [id number] and [id number] that are all inked. Jar 0+. 3 12:34 PM T DERMATOPATHOLOGY LABORATORY Microscopic Description Specimen A. SKIN, left upper forehead: The epidermis shows parakeratosis, full thickness disorderly maturation of keratinocytes, mitoses at different levels, and dyskeratotic cells. This lesion is present at the margin of the specimen. 3 12:34 PM T DERMATOPATHOLOGY LABORATORY Disclaimer An external and internal positive and negative controls are appropriate for the histochemical, immunohistochemical and immunofluorescence stain(s) in this case (if any), except where stated explicitly. The performance characteristics of the stain(s) cited in this report were developed and its performance characteristic determined by the Dermatopathology Laboratory at [facility], directed by Dr. Jordyn Castelan. These tests need not be, and therefore are not, approved by the [place] Food and Drug Administration. The tests are used for clinical purposes. Billing Codes Specimen Charges Stain Charges 89608 1 3 12:34 PM CDT DERMATOPATHOLOGY LABORATORY Embedded Images 3 12:34 PM CDT DERMATOPATHOLOGY LABORATORY Pathology/Cytolog y TISSUE SPECIMEN FROM SKIN / Unknown 10/10/2022 10/10/2022 2:56 PM CDT Martin Wooten MD LAB - PATHOLOGY/CYTO LOGY ORDERABLES DERMATOPATHOLOGY LABORATORY [facility] - Department of Dermatology [facility] Medicine [address] [place] [address], [address] [phone]
--- OUTSIDE RECORDS SUMMARY | 2024-07-23 06:12 | XMS_ITS | Encounter Summary ---
Author Organization [facility] Address [address] [place] [address] Care Team Providers Care Book Repairer Name Role Phone Unavailable Primary Care Provider Unavailabl e Encounter Details Date Type Department Care Team (Late st Contact Info) Description 10/10/2022 Lab Requisition [facility] Care DermPath Lab [address] [place] [address] Martin Wooten MD [address] [place] [address] Social History Tobacco Use Types Packs/Day Years Used Date Smoking Tobacco: Never Assessed Sex and Gender Information Value Date Recorded Sex Assigned at Not on file Gender Identity Not on file Sexual Orientation Not on file documented as of this encounter Plan of Treatment Not on file documented as of this encounter Procedures Procedure Name Priority Date/Time Associated Diagnosis Comments DERMATOPATHOLOGY Routine 10/10/2022 12:0 0 AM CDT documented in this encounter Results * DERMATOPATHOLOGY (10/10/2022 12:00 AM CDT) Case Report Dermatopathology Report ? Case: [id number] ? Authorizing Provider: ??Martin Wooten MD ?Collected: ? 10/10/2022 12:00 AM ? Ordering Location: ? [facility] DermPath Lab ?Received: ?10/10/2022 02:56 PM ? Pathologist: ? Susi Vincent, ? MD ? Specimen: ?Skin, left upper forehead ? 3 12:34 PM CDT DERMATOPATHOLOGY LABORATORY Final Diagnosis Specimen A. 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 SCC. Please Check Margins. 3 12:34 PM CDT DERMATOPATHOLOGY LABORATORY Gross Description Specimen A: Received is one formalin filled container labeled with the patient's name and designated left upper forehead. The specimen consists of a curettage and desiccation biopsy measuring [id number], [id number] and [id number] that are all inked. Jar 0+. 3 12:34 PM CDT DERMATOPATHOLOGY LABORATORY Microscopic Description Specimen A. SKIN, left upper forehead: The epidermis shows parakeratosis, full thickness disorderly maturation of keratinocytes, mitoses at different levels, and dyskeratotic cells. This lesion is present at the margin of the specimen. 3 12:34 PM CDT DERMATOPATHOLOGY LABORATORY Disclaimer An external and internal positive and negative controls are appropriate for the histochemical, immunohistochemical and immunofluorescence stain(s) in this case (if any), except where stated explicitly. The performance characteristics of the stain(s) cited in this report were developed and its performance characteristic determined by the Dermatopathology Laboratory at [facility], directed by Dr. Jordyn Castelan. These tests need not be, and therefore are not, approved by the [place] Food and Drug Administration. The tests are used for clinical purposes. Billing Codes Specimen Charges Stain Charges 89602 1 3 12:34 PM CDT DERMATOPATHOLOGY LABORATORY Embedded Images 3 12:34 PM CDT DERMATOPATHOLOGY LABORATORY Pathology/Cytolog y TISSUE SPECIMEN FROM SKIN / Unknown 10/10/2022 10/10/2022 2:56 PM CDT Martin Wooten MD LAB - PATHOLOGY/CYTO LOGY ORDERABLES DERMATOPATHOLOGY LABORATORY [facility] - Department of Dermatology [address], [address] [phone] documented in this encounter Visit Diagnoses Not on filedocumented in this encounter
--- OUTSIDE RECORDS SUMMARY | 2024-07-23 06:12 | XMS_ITS | Referral Summary ---
Author Organization [facility] [address] Address [address] [place] [address] Care Team Providers Care Remote Sensing Scientist Name Role Phone Glen Enamorado DO Primary Care Provider [phone] Allergies No known active allergies Medications Euthyrox [...] Incisional hernia Syncope 12/07/2013 Overview (10/27/2016): Syncope Social History Tobacco Use Types Packs/Day Years Used Date Smoking Tobacco: Former Cigarettes Q uit: 05/07/1965 Smokeless Tobacco: Never Tobacco Cessation:Counseling Given: Not Answered Alcohol Use Standard Drinks/Week Comments No 0 (1 standard drink = 0.6 oz pur e alcohol) Sex and Gender Information Value Date Recorded Sex Assigned at Not on file Legal Sex Male 2:26 PM BOTTLE CLEANER Gender Identity Male 06/21/2021 9:06 AM BOTTLE CLEANER Sexual Orientation Bisexual 06/21/2021 9: 15 AM BOTTLE CLEANER Last Filed Vital Signs Vital Sign Reading [...] 11/22/2022 1:42 PM CDT Plan of Treatment Not on file Insurance MEDICARE [facility] Care Teams Remote Sensing Scientist Relationship Specialty Start Date End Date Glen Enamorado DO PCP - General Internal Medicine 05/07/20
--- OUTSIDE RECORDS SUMMARY | 2024-07-23 06:12 | XMS_ITS | Clinical Summary ---
Author Organization [facility] Address [address] [place] [address] Care Team Providers Care Security Threat Analyst Name Role Phone Unavailable Primary Care Provider Unavailabl e Source Comments [facility],non-owned Affiliates and Associated Physician Practices is amultiple site organization consisting of ambulatory clinics and hospital sitesin [place], [place], [place] and [place]. This disclosure is being madepursuant to the Care Everywhere program and may not contain all information available regarding this patient. Last updated 18.[facility] [place] Social History Tobacco Use Types Packs/Day Years Used Date Smoking Tobacco: Never Assessed Sex and Gender Information Value Date Recorded Sex Assigned at Not on file Gender Identity Not on file Sexual Orientation Not on file Plan of Treatment Health Maintenance Due Date Last Done Comments MEDICARE AWV ? 12 MONTHS 1940 DTAP/TDAP/TD VACCINES (1 - Tdap) 1958 ZOSTER VACCINE (1 of 2) 1989 PNEUMOCOCCAL VACCINE 65+ (1 of 1 - PCV) 02/15/2004 Respiratory Syncytial Virus (RSV) Vaccine Pt: or over 60 yrs (1 - 1-dose 75+ series) 2014 DEPRESSION SCREENING 07/24/2023 COVID-19 VACCINE ( - 2023-2 5 season) 2024 INFLUENZA VACCINE (#1) 2024 HEPATITIS B VACCINE Aged Out No longe r eligible based on patient's age to complete this topic HIB VACCINE Aged Out No longer eligi ble based on patient's age to complete this topic HPV VACCINE Aged Out No longer eligi ble based on patient's age to complete this topic MENINGOCOCCAL VACCINE Aged Out No rey ngozi eligible based on patient's age to complete this topic
--- OUTSIDE RECORDS SUMMARY | 2024-07-23 06:12 | XMS_ITS | Encounter Summary ---
Author Organization [facility] Address [address] [place] [address] Care Team Providers Care Device Engineer Name Role Phone Glen Enamorado DO Primary Care Provider [phone] Encounter Details Date Type Department Care Team (Late st Contact Info) Description 06/08/2021 Orders Only [facility] Cardiology [address] [place] [address] Brian Thomason MD [address] [id number] Social History Tobacco Use Types Packs/Day Years Used Date Smoking Tobacco: Former Cigarettes Q uit: 05/07/1965 Smokeless Tobacco: Never Alcohol Use Standard Drinks/Week Comments No 0 (1 standard drink = 0.6 oz pur e alcohol) Sex and Gender Information Value Date Recorded Sex Assigned at Not on file Legal Sex Male 2:26 PM RETURNING OFFICER Gender Identity Male 06/21/2021 9:06 AM RETURNING OFFICER Sexual Orientation Bisexual 06/21/2021 9: 15 AM RETURNING OFFICER documented as of this encounter Plan of [...] on filedocumented in this encounter Care Teams Device Engineer Relationship Specialty Start Date End Date Glen Enamorado DO PCP - General Internal Medicine 05/07/20 documented as of this encounter
--- OUTSIDE RECORDS SUMMARY | 2024-07-23 06:12 | XMS_ITS | Encounter Summary ---
Author Organization [facility] Address [address] [place] [address] Care Team Providers Care Business Law Instructor Name Role Phone Glen Enamorado DO Primary Care Provider [phone] Reason for Visit * Reason Comments Follow-up 3 mo follow up on dy spnea, CP Encounter Details Date Type Department Care Team (Late st Contact Info) Description 07/30/2020 1:30 PM COMPUTER APPLICATION DEVELOPER Office Visit [facility] Cardiology [address] [place] [address] Dimas Bauer MD [address] [facility] [address] [address] [place] [address] Chest pain, unspecified type (Primary Dx) Social History Tobacco Use Types Packs/Day Years Used Date Smoking Tobacco: Former Cigarettes Q uit: 05/07/1965 Smokeless Tobacco: Never Alcohol Use Standard Drinks/Week Comments No 0 (1 standard drink = 0.6 oz pur e alcohol) Sex and Gender Information Value Date Recorded Sex Assigned at Not on file Legal Sex Male 2:26 PM COMPUTER APPLICATION DEVELOPER Gender Identity Male 06/21/2021 9:06 AM COMPUTER APPLICATION DEVELOPER Sexual Orientation Bisexual 06/21/2021 9: 15 AM COMPUTER APPLICATION DEVELOPER documented as of this encounter Last Filed Vital Signs Vital Sign Reading Time Taken Comments Blood Pressure 136/70 07/30/2020 1:32 PM COMPUTER APPLICATION DEVELOPER Pulse 68 07/30/2020 1:32 PM COMPUTER APPLICATION DEVELOPER Temperature - - Respiratory Rate - - Oxygen Saturation 97% 07/30/2020 1:32 PM COMPUTER APPLICATION DEVELOPER Inhaled Oxygen Concentration - - Weight 83.9 kg (185 lb) 07/30/2020 1:32 PM COMPUTER APPLICATION DEVELOPER Height 160 cm (5' 3 ) 07/30/2020 1:32 PM COMPUTER APPLICATION DEVELOPER Body Mass Index 32.77 07/30/2020 1:32 PM COMPUTER APPLICATION DEVELOPER documented in this encounter Progress Notes * Dimas Bauer MD - 07/30/2020 1:30 PM CST [facility] 07/30/2020 CHIEF COMPLAINT Exertional chest pain/GARCÍA HPI Loy Gonzalez is a 80 y.o. male with [...] told that he had to see a painter rough SARAH. He was therefore given this appointment [...] year whenhe took a [facility] [place] at about 8000 [place] elevation he was having these symptoms in a more notable fashion. He has never been known to have coronary artery disease in the past he did have some symptoms of palpitations in the past and had a JoberatorQ event monitor placed by a different painter rough this was removed after 3 years of monitoring because the battery was exhausted andthere were no significant arrhythmias identified. His primary health problems mostly include hypertension and diabetes which are under good control with medication. He has had a previous cholecystectomy and appendectomy as well. Twelve lead electrocardiogram in the office is within normal limits. Patient had a stress echocardiogram done in May. The study was very mildly abnormal. After long discussion he opted for medical therapy of this. I a beta- ezequiel and oral nitrates were added to his medical regimen. Since being started on the above regimen he has had no further symptoms of chest pain. He is not walking very far in the winter time but states he can walk around a couple of cityblocks which measures about half to 3/4 of a mi and he does not have any symptomatology. At this point he is happy with the results of his medical treatment and he does not wish to have an angiogram which is a decision that I agree with. MEDICAL HISTORY Past Medical History: Diagnosis Date [...] Types: Cigarettes Quit date: 05/07/1965 Years since quittin.2 ??? Smokeless tobacco: Never Used Substance and Sexual Activity ??? Alcohol use: No ??? Drug use: No ??? Sexual activity: Not on file Lifestyle ??? Physical activity Days per week: Not on file Minutes per session: Not on file ??? Stress: Not on file Relationships ??? Social connections Talks on phone: Not on file Gets together: Not on file Attends lutheran service: Not on file Active member of [...] found for: [facility] PHYSICAL EXAM Vitals BP 136/70 (BP Location: Left arm, Patient Position: Sitting) Pulse 68 Ht 160 cm (5' 3 ) Wt 83.9 kg (185 lb) SpO2 97% BMI 32.77 kg/m?? General appearance - alert, well appearing, [...] rashes, no suspicious skin lesions noted ASSESSMENT Presumed diagnosis of coronary disease because of symptoms and mildly abnormal stress echo being treated medically PLAN/RECOMMENDATIONS Continue medical regimen Follow-up 6 months or p.r.n. Dimas Bauer MD UTER APPLICATION DEVELOPER documented in this encounter Plan of Treatment Not on file documented as of this encounter Visit Diagnoses Diagnosis Chest pain, unspecified type- Primary documented in this encounter Historical Medications * This list may reflect changes made after this encounter. multivitamin capsule Take 1 capsule by mouth daily added in this encounter Care Teams Business Law Instructor Relationship Specialty Start Date End Date Glen Enamorado DO PCP - General Internal Medicine 05/07/20 documented as of this encounter
--- OUTSIDE RECORDS SUMMARY | 2024-07-23 06:12 | XMS_ITS | Encounter Summary ---
Author Organization [facility] Address [address] [place] [address] Care Team Providers Care Trophy Assembler Name Role Phone Glen Enamorado Primary Care Provider [phone] Reason for Visit * (Routine) - Closed Specialty Diagnoses / Procedures Referred By Contac t Referred To Contact Diagnoses Chest pain, unspecified type Procedures Echo Exercise Stress Test Only Dimas Bauer MD [address] [address] Phone: tel: fax: [facility] Referral ID Status Reason Start Date Expiration Date Visits Re quested Visits Authorized [id number] Closed 05/07/2020 06/06/2021 1 1 Encounter Details Date Type Department Care Team (Latest Contact Info) Description 06/23/2020 11:15 AM PROMOTION PRODUCER Ancillary Procedure [facility] Cardiology [address] [id number] Chest pain, unspecified type Social History Tobacco Use Types Packs/Day Years Used Date Smoking Tobacco: Former Cigarettes Q uit: 05/07/1965 Smokeless Tobacco: Never Alcohol Use Standard Drinks/Week Comments No 0 (1 standard drink = 0.6 oz pur e alcohol) Sex and Gender Information Value Date Recorded Sex Assigned at Not on file Legal Sex Male 2:26 PM PROMOTION PRODUCER Gender Identity Male 06/21/2021 9:06 AM PROMOTION PRODUCER Sexual Orientation Bisexual 06/21/2021 9: 15 AM PROMOTION PRODUCER documented as of this encounter Last Filed Vital Signs Vital Sign Reading Time Taken Comments Blood Pressure - - Pulse - - Temperature 36.4 ??C (97.5 ??F) 06/23/2020 10:[address] Respiratory Rate - - Oxygen Saturation - - Inhaled Oxygen Concentration - - Weight - - Height - - Body Mass Index - - documented in this encounter Plan of Treatment Not on file documented as of this encounter Procedures Procedure Name Priority Date/Time Associated Diagnosis Comments STRESS ECHO EXERCISE WO DOPPLER/CF WO CONTRAST Routine 06/23/2020 12:12 PM PROMOTION PRODUCER Chest pain, unspecified type documented in this encounter Results * STRESS ECHO EXERCISE WO DOPPLER/CF WO CONTRAST (06/23/2020 12:12 PM PROMOTION PRODUCER) Anatomical Region Laterality Modality Ultrasound 06/23/2020 10:4 1 AM PROMOTION PRODUCER Narrative 06/23/2020 5:23 PM PROMOTION PRODUCER [facility] Cardiology [address] [facility] [address], [place] [address] [address] [facility] [address], [place] [address] P:[phone] P:[phone] Echocardiographic Report Patient Name: VAUGHN GONZALEZ : 9 Study Date: 06/23/2020 10:41:04 AM Gender: M Tech: [facility] Ref.Provider: ASIA Height(Cm): 160 BSA: 1.85 Weight(Kg): [...] BP - 200/70. Rate Pressure Product - 36713. METS Achieved - 7.00. Percent Predicted Maximal HR Achieved - 101 %. Interpretation Site: Exam was interpreted at [facility]. Performance: Average exercise functional capacity. Hemodynamic [...] BP - 200/70. Rate Pressure Product - [id number]. METS Achieved - 7.00. Percent Predicted Maximal HR Achieved - 101 %. Normal sinus rhythm. Poor R-wave progression. Non-diagnostic ST-T wave changes with exercise. Normal left ventricular size, normal systolic function, normal wall thickness with no segmental wall motion abnormalities at rest. These segments of the LV are hypokinetic: basal inferior segment. Echocardiographic evidence of ischemia. Electronically Signed By: Dimas Bauer MD, [facility] 2020-06-23 17:23:19 PROMOTION PRODUCER Procedure Note Dimas Bauer MD - 06/23/2020 [facility] Cardiology [address] [facility] [address], [place] [address] [address] [facility] [address], [place] [address] P:[phone] P:[phone] Echocardiographic Report Patient Name: VAUGHN GONZALEZPatient ID: [id number] : [id number] Date: 06/23/2020 10:41:04 AM Gender: MAccession #: [id number] Tech: GMLocation: [place] Ref.Provider: Nereydat(Cm): 160 BSA: 1.85Weight(Kg): 82.1 Heart Rate: 61BP: [...] BP - 200/70. Rate Pressure Product - [id number]. METS Achieved - 7.00.Percent Predicted Maximal HR Achieved - 101 %. Interpretation Site: Exam was interpreted at [facility]. Performance: Average exercise functional capacity. Hemodynamic [...] BP - 200/70. Rate Pressure Product - [id number]. METS Achieved - 7.00.Percent Predicted Maximal HR Achieved - 101 %. Normal sinus rhythm. Poor R-wave progression. Non-diagnostic ST-T wave changes with exercise. Normal left ventricular size, normal systolic function, normal wallthickness with no segmental wall motion abnormalities at rest. These segments of the LV are hypokinetic: basal inferior segment. Echocardiographic evidence of ischemia. Electronically Signed By: Dimas Bauer MD, [facility] 2020-06-23 17:23:19 PROMOTION PRODUCER Dimas Bauer MD CV ECHO PROCEDURES Final Result documented in this encounter Visit Diagnoses Diagnosis Chest pain, unspecified type documented in this encounter Care Teams Trophy Assembler Relationship Specialty Start Date End Date Glen Enamorado DO PCP - General Internal Medicine 05/07/20 documented as of this encounter
--- OUTSIDE RECORDS SUMMARY | 2024-07-23 06:12 | XMS_ITS | Encounter Summary ---
Author Organization [facility] Address [address] [facility] [address] [place] [address] Care Team Providers Care Tire Repairer Name Role Phone Glne Enamorado DO Primary Care Provider [phone] Encounter Details Date Type Department Care Team (Late st Contact Info) Description 06/10/2021 Orders Only [facility] Cardiology [address] [place] [address] Brian Thomason MD [address] [place] [id number] Social History Tobacco Use Types Packs/Day Years Used Date Smoking Tobacco: Former Cigarettes Q uit: 05/07/1965 Smokeless Tobacco: Never Alcohol Use Standard Drinks/Week Comments No 0 (1 standard drink = 0.6 oz pur e alcohol) Sex and Gender Information Value Date Recorded Sex Assigned at Not on file Legal Sex Male 2:26 PM TIE BINDER Gender Identity Male 06/21/2021 9:06 AM TIE BINDER Sexual Orientation Bisexual 06/21/2021 9: 15 AM TIE BINDER documented as of this encounter Plan of Treatment Not on file documented as of this encounter Procedures Procedure Name Priority Date/Time Associated Diagnosis Comments CARDIOLOGY DOCUMENT SCAN Routine 06/10/2021 documented in this encounter Results * SCAN - CARDIOLOGY (06/10/2021) Anatomical Region Laterality Modality Other us Brian Thomason MD CV CARDIAC SERVICES RADHA CAREY Final Result documented in this encounter Visit Diagnoses Not on filedocumented in this encounter Care Teams Tire Repairer Relationship Specialty Start Date End Date Glen Enamorado DO PCP - General Internal Medicine 05/07/20 documented as of this encounter
--- OUTSIDE RECORDS SUMMARY | 2024-07-23 06:12 | XMS_ITS | Data Portability ---
Author Organization [facility], Main Office Address [address] [place] [address] Care Team Providers Care Distribution Field Engineer Name Role Phone JANKI GRIGGS Primary Care Provider JNAKI GRIGGS Referring Provider [phone] ERIK BETANCOURT Primary Care Provider ERIK BETANCOURT Referring Provider [phone] Assessment Encounter Date Assessment Date Assessment LastModified by Organization Details LastModified Time 10/13/2022 10/13/2022 Patient returns. He would like another cortisone shot in his left knee today. Last time he was here was in October of 2021 and had cortisone shots in both knees 2 weeks apart at that time and has done very well ever since. His x-rays from November 10, 2021 demonstrate moderately severe medial compartment osteoarthritis left knee moderate medial compartment and moderate patellofemoral arthritis the right knee. His right knee bothers him mildly but the left knee has become problematic for him again. We did start view x-rays in 2019 which showed medial compartment is [id number] in the left knee on a PA flexion start few so he in fact has severe medial compartment osteoarthritis left knee. On exam today as range of motion from 0-130 degrees in the left knee in a mild effusion and mild tenderness over the medial joint line. Remains active in his walking about doing his normal activities. Sometimes he has a little bit restricted by his knees and his hips also which limits his walking distance on certain days. He would like cortisone shot left knee today. Risk of side effects include risk of infection discussed. After ChloraPrep prep 20 mg Kenalog and 4 cc of 0.5% ropivacaine were injected into the left knee without difficulty. He asked about platelet rich plasma injections. He saw the commercials twice on this option and the commercials apparently implied that PRP injections can help re grow cartilage which of course is not true and all studies have shown this is not true so I have suggested that he avoid that option. Insurance does not pay for it because it has never been shown to be helpful and it would be a waste of money for him. 20 minutes were spent total care this patient more than half the time spent in [id number] care. I will see him back on as-needed basis. He can have a cortisone shot as often as every 3 months if there necessary and helpful. He asked about knee replacement surgery we discussed that the risks are higher in Octogenarians the mortality risk is 1/200 and if he wished to consider have total knee replacement we would want him to undergo a thorough cardiac evaluation for cardiac risk assessment before him. [email or web address] Not available 10/13/2022 13:33:14 05/24/2023 05/24/2023 HPI: Patient returns. He is here wanting a cortisone injection left knee. Last shot was in September of this year. He has moderately severe medial compartment osteoarthritis. Recently went trip and was doing a lot walking he thinks this is probably on what aggravated the knee. Shots work well for him. And he wished to have another 1 today. Physical exam: 83-year-old male very alert. He appears younger than his stated age. He has a mild effusion in the left knee. Range motion is from 0-135 degrees. No increased swelling in either lower extremity. Mild tenderness over the medial joint line. After ChloraPrep was used on skin 20 mg Kenalog and 3 cc of 0.5% ropivacaine was injected into the left knee. Risk of infection discussed. Impression: 83-year-old male who has moderately severe medial compartment osteoarthritis in the left knee. Shots continue to give him good relief. He will call when he feels he needs additional injection. [email or web address] Not available 05/24/2023 12:04:21 Plan of Treatment Reminders Order Date Submit Date Provider Last Modified By Organization Details Last Modified Time Details Appointments None recorded. Lab None recorded. Referral None recorded. Procedures injection/a spiration joint/bursa (PROC) - in office procedure, administere d by provider 2022 023 [email or web address] In-Office Order, Internal Use Only DO Not Attach Compendium DO Not Attach Compendium, Do Not Delete/merge, [id number] 3 12:33:59 injection/a spiration joint/bursa (PROC) - in office procedure, administere d by provider 2022 023 [email or web address] In-Office Order, Internal Use Only DO Not Attach Compendium DO Not Attach Compendium, Do Not Delete/merge, [id number] 3 10:53:51 Surgeries None recorded. Imaging XR, knee 2022 023 [email or web address] [facility] [place], [facility] [facility] [address], [place], [address], 13:29:01 Medication Orders Kenalog 10 mg/mL suspension for injection [address] [facility] [address] [facility], [address] [place] [address], [address], 3 12:38:25 ropivacaine (PF) 5 mg/mL (0.5 %) injection solution [address] [facility], [address] [place] [address], [address], 3 12:38:25 Kenalog 10 mg/mL suspension for injection [address] [facility], [address] [place] [address], [address], 3 10:08:54 ropivacaine (PF) 5 mg/mL (0.5 %) injection solution [address] [facility], [address] [place] [address], [address], 3 10:08:54 Patient TargetsNo targets recorded. Patient InstructionsNo instructions recorded. Reason for Referral None Reported. Results Created Date Observation Date Name Description Value Unit Range Abnormal Flag Note LastModifiedBy Organization Detail LastModifiedTime 03/31/20 21 XR, knee No observ ation record ed. [id number] [facility] [place] [address], [place], [address], 09/21/2022 21:14:09 04/21/20 21 XR, knee, 3 view No observ ation record ed. [id number] [facility] [place] [address], [place], [address], 09/21/2022 21:14:09 10/23/19 22 XR, knee No observ ation record ed. [id number] [facility] [place] [address], [place], [address], 09/21/2022 21:14:09 06/05/20 23 XR, knee No observ ation record ed. [email or web address] [facility] [place] [address], [place], [address], 06/05/2023 13:29:00 Result Notes None recorded. Problems Name Problem SNOMED Code Status Onset Date Resolution Date Notes Provider Name and Address Organization Details Recorded Time Osteoarthr itis 301464517 Active Not Available [facility] 3 21:12:20 Pain of left knee joint 2377270106742 07 Active 2022 BONNY Linton, [employer] [facility] 3 12:29:25 Osteoarthr itis of left knee joint 8874118095376 09 Active 2022 BONNY Linton, [employer] [facility] 3 10:52:12 Problem Notes None recorded. Procedures Surgical History Date Name Laterality Status Provider Name and Address Organization Details Recorded Time procedure on gallbladder completed Not Available [facility] 09/21/2022 21:11:21 resection of diverticulum completed Not Available [facility] 09/21/2022 21:11:21 Unlisted px cardiac surgery completed Not Available [facility] 09/21/2022 21:11:21 Appendectomy completed Not Available [facility] 09/21/2022 21:11:21 Colon Resection completed Not Available [facility] 09/21/2022 21:11:21 Retina completed Not Available [facility] 07/2022 21:11:21 Hernia Repair completed [facility] Available [facility] 09/21/2022 21:11:21 Imaging Results Imaging Date Name Status LastModified by Organiz ation Details LastModified Time 10/22/2021 XR, knee completed [id number] [facility] [place] [address] [facility] [address], [place], [address], 09/21/2022 21:14:09 03/31/2021 XR, knee completed [id number] [facility] [place] [address] [facility] [address], [place], [address], 09/21/2022 21:14:09 04/21/2021 XR, knee, 3 view completed [id number] [facility] [place] [address], [place], [address], 09/21/2022 21:14:09 06/05/2023 XR, knee completed [email or web address] [facility] [place] [address] [facility] [address], [place], [address], 06/05/2023 13:29:00 Procedure Notes None recorded. Medical Equipment None Reported. Allergies No known drug allergies Medications Name Sig Start Date Stop Date Status Note LastModified by Organization Details LastModified Time prednisone 10 mg tablet 10/02 completed Not Available Not Available Not Available cefuroxime axetil 250 mg tablet 09/24 completed Not Available Not Available Not Available atorvastati n 20 mg tablet TAKE 1 TABLET BY MOUTH ONCE DAILY 11/04 completed Not Available Not Available Not Available ibuprofen 800 mg tablet 03/31 completed Not Available Not Available Not Available fluconazole 150 mg tablet 09/24 completed Not Available Not Available Not Available benzonatate 200 mg capsule 03/31 completed Not Available Not Available Not Available metoprolol succinate ER 50 mg tablet,exte nded release 24 hr TAKE 1 TABLET BY MOUTH ONCE DAILY active Not Available Not Available No t Available fluticasone propionate 0.05 % topical cream APPLY CREAM TOPICALLY TWICE DAILY TO RED AREAS ON CHEST AND NECK UNTIL CLEAR active Not Available Not Available No t Available bupivacaine HCl 0.5 % (5 mg/mL) injection solution In office injection administe red by the provider 11/04 completed Not Available Not Available Not Available prednisone 20 mg tablet 09/24 completed Not Available Not Available Not Available isosorbide mononitrate ER 30 mg tablet,exte nded release 24 hr TAKE 1 TABLET BY MOUTH ONCE DAILY 10/22 completed Not Available Not Available Not Available Accu-Chek Softclix Lancets 01/11 completed Not Available Not Available Not Available amlodipine 5 mg tablet TAKE 1 TABLET BY MOUTH ONCE DAILY active Not Available Not Available No t Available omeprazole 40 mg capsule,del ayed release TAKE 1 CAPSULE BY MOUTH ONCE DAILY active Not Available Not Available No t Available triamcinolo ne acetonide 0.1 % topical cream 01/08 completed Not Available Not Available Not Available levothyroxi ne 75 mcg tablet TAKE 1 TABLET BY MOUTH ONCE DAILY active Not Available Not Available No t Available amoxicillin 875 mg tablet 09/24 completed Not Available Not Available Not Available Kenalog 10 mg/mL suspension for injection in office 2022 active [facility]: 0003- 0494- 20 Not Available Not Available Not Available benzonatate 100 mg capsule 09/24 completed Not Available Not Available Not Available levothyroxi ne 50 mcg tablet 10/02 completed Not Available Not Available Not Available tacrolimus 0.1 % topical ointment RUB IN WELL TWICE DAILY TO THE GROIN RASH UNTIL CLEAR 01/11 completed Not Available Not Available Not Available Xylocaine 20 mg/mL (2 %) injection solution In office injection administe red by the provider 10/13 completed Not Available Not Available Not Available gabapentin 100 mg capsule 11/04 completed Not Available Not Available Not Available methylpredn isolone 4 mg tablets in a dose pack 09/24 completed Not Available Not Available Not Available lisinopril 40 mg tablet TAKE 1 TABLET BY MOUTH ONCE DAILY active Not Available Not Available No t Available metformin ER 500 mg tablet,exte nded release 24 hr TAKE 1 TABLET BY MOUTH TWICE DAILY active Not Available Not Available No t Available metronidazo le 0.75 % topical gel APPLY THIN LAYER TOPICALLY TO AFFECTED AREA TWICE DAILY FOR ROSACEA active Not Available Not Available No t Available Hemorrhoid ointment Insert by rectal route. 11/04 completed Not Available Not Available Not Available loratadine 10 mg tablet 01/11 completed Not Available Not Available Not Available rosuvastati n 10 mg tablet TAKE 1 TABLET BY MOUTH EVERY OTHER DAY 10/22 completed Not Available Not Available Not Available tacrolimus 01/11 completed Not Available Not Available Not Available Vitamin D3 01/11 completed Not Available Not Available Not Available multivitami n 01/11 completed Not Available Not Available Not Available lidocaine (PF) 10 mg/mL (1 %) injection solution In office injection administe red by the provider 10/22 completed [facility]: 0409- 4276- 17 Not Available Not Available Not Available diclofenac 1 % topical gel APPLY 4 GRAMS TOPICALLY 4 TIMES DAILY NEEDED FOR KNEE PAIN active Not Available Not Available No t Available ropivacaine (PF) 5 mg/mL (0.5 %) injection solution in office 2022 active Not Available Not Available Not Avai lable Accu-Chek Viviana Plus test strips 10/02 completed Not Available Not Available Not Available Vitamin B12 01/11 completed Not Available Not Available Not Available metoprolol succinate ER 50 mg capsule sprinkle, ext. release 24 hr Take 1 capsule every day by oral route. 05/24 completed Not Available Not Available Not Available Accu-Chek Guide Me Glucose Meter 01/11 completed Not Available Not Available Not Available Vitals Date Recorded Body mass index (BMI) Body height Body weight Provider Name and Address Organization Details Last Updated DateTime 11/04/2021 40.4 kg/m2 167.64 cm 415561.09 g Not Available [facility] 09/21/2022 21:11:27 Date Recorded Body height Provider Name an d Address Organization Details Last Updated DateTime 10/13/2022 167.64 cm BONNY Linton [facility] [place] [facility] 10/13/2022 12:28:52 Date Recorded Body height Provider Name an d Address Organization Details Last Updated DateTime 05/24/2023 167.64 cm BONNY Linton [facility] 05/24/2023 10:51:37 Social History Question Answer Notes LastModified by Organizat ion Details LastModified Time Tobacco Smoking Status Current Every Day Smoker Not Available [facility] 09/21/2022 21:11:01 What Is Your Level Of Alcohol Consumption? None [id number] Information not available 09/21/2022 Sex: Unknown Functional Status None recorded. Mental Status None recorded. Family History Relationship Description Onset Age of this Age Resolved Age Notes LastModified by Organization Details LastModified Time Mother Heart disease [id number] Not available 09/21/2022 21:11:22 Father Hypertensive disorder [id number] Not available 09/21/2022 21:11:22 Son Blood coagulation disorder [id number] Not available 09/21/2022 21:11:22 Medical History Condition Response ARTHRITIS Y SKIN PROBLEMS Y DIABETES, TYPE Y Past Encounters Encounter ID Performer Location Encounter Start Date Encounter Closed Date Diagnosis/Indication Diagnosis SNOMED-CT Code Diagnosis ICD10 Code [id number] [facility] [place] [address] [facility] [address] [place] [address] 03/31/2021 00:00:00 03/31/2021 16:17:42 [id number] [facility] [place] [address] [facility] [address] [place] [address] 04/21/2021 00:00:00 04/21/2021 16:00:50 [id number] [facility] [place] [address] [facility] [address] [place] [address] 10/22/2021 00:00:00 10/22/2021 12:12:59 [id number] [facility] [address] [address] 11/04/2021 00:00:00 11/04/2021 11:26:25 [id number] Jorge Malin MD [facility] [address] [place] [address] 10/13/2022 12:05:32 10/13/2022 14:19:59 Pain of left knee joint 1792328944 47260 M25.558 [id number] TAMIKA Antoine [facility] [place] [address] [facility] [address] [place] [address] 05/24/2023 10:43:51 05/24/2023 12:13:17 Osteoarthritis of left knee joint 5650840939 36823 M17.12 Health Concerns Section Related Observation LastModified by Organization Detai ls LastModified Time None Recorded Concern Status LastModified by Organization Details LastModified Time None Recorded Advance Directives Directive None Recorded Payers Encounter Date Sequence Insurance Name Policy Number Policy Herrera Covered Member ID Herrera Member ID Guarantor Name 10/13/2022 1 [place] Loy Gonzalez [id number] Loy Gonzalez 10/13/2022 2 [place] 106 Loy Gonzalez [id number] Loy Gonzalez 05/24/2023 1 [place] L[place] Gonzalez [id number] Loy Gonzalez 05/24/2023 2 [place] 106 Loy Gonzalez [id number] Loy Gonzalez
== END 2024-07-16 08:09 | disposition home or self-care (01) ==
LOC: ANHLAB 08:10
PROVIDERS: PCP Family Medicine; Visit Provider Family Medicine
DX: G25.81 Restless legs syndrome (principal); R06.00 Dyspnea, unspecified; R42 Dizziness and giddiness; E55.9 Vitamin D deficiency, unspecified; E11.9 Type 2 diabetes mellitus without complications; E03.9 Hypothyroidism, unspecified; I10 Essential (primary) hypertension; N40.0 Benign prostatic hyperplasia without lower urinary tract symptoms; K21.9 Gastro-esophageal reflux disease without esophagitis; E66.3 Overweight; D64.9 Anemia, unspecified; Z00.00 Encounter for general adult medical examination without abnormal findings; R06.81 Apnea, not elsewhere classified
CPT/HCPCS: 36415; 80053; 80061; 82043; 82728; 83036; 83540; 83550; 84443; 85027

== ENCOUNTER 2024-10-22 10:58 | Observation (INO) | payer MEDICARE, BC, SELFPAY ==
[2024-10-22] VITALS (30 sets, daily range): BP systolic 106–164; BP diastolic 63–87; PULSE 56–136; RESP 11–21; TEMP 35.9–36.4; O2SAT 96–100; BMI 29.5
--- NOTE | ~2024-10-22 | CT_ITS ---
EXAMINATION: CTA chest PE protocol DATE: 10/22/2024 13:21 INDICATION: Chest pain and dizziness TECHNIQUE: Computed tomography (CT) pulmonary angiogram of the chest was performed with 100 mL Omnipa que-350 intravenous contrast. Additional 3D reconstructions utilizing coronal maximum intensity proje ction (MIP) were performed. Automated exposure control and iterative reconstruction technique were em ployed. The dose-length product was 339.30 mGy-cm. COMPARISON: None FINDINGS: No pulmonary embolism. Calcified pleural-based nodule in the dependent right lower lobe consistent wi th old granulomatous disease. No pneumonia, pulmonary edema or pleural effusion. Heart size is normal . Small amount prescribed coronary artery calcification along the left anterior descending coronary a rtery. No pericardial effusion. Thoracic aorta is normal in caliber with no dissection. No pathologic ally enlarged thoracic lymphadenopathy. Mild focal hepatic steatosis along the ligamentum teres. Gall bladder is nonvisualized, likely status post cholecystectomy. 1.6 m macroscopic fat attenuation left adrenal myelolipoma. Mild thoracic spondylosis. IMPRESSION: 1. No pulmonary embolism or other acute cardiopulmonary disease. Reviewed, dictated and finalized at location A.
--- NOTE | ~2024-10-22 | XR_ITS ---
EXAMINATION: XR chest 2V DATE: 10/22/2024 12:13 INDICATION: Shortness of breath, chest pain and palpitations. Atrial fibrillation. TECHNIQUE: frontal and lateral views of the chest were obtained. COMPARISON: Chest radiograph and CT dated 06/08/2021 FINDINGS: Unchanged mild curvilinear discoid atelectasis/scarring at the lingula. Additional mild linear discoi d atelectasis/scarring at the lateral right lower lung zone. No other airspace opacities, pulmonary e silver, pleural effusion or pneumothorax. The cardiomediastinal silhouette is normal. Visualized bones and soft tissues are unremarkable. IMPRESSION: 1. Mild linear discoid atelectasis/scarring in the bilateral lower lung zones. No other acute cardiop ulmonary disease. Reviewed, dictated and finalized at location A. IMPRESSION: 1. Mild linear discoid atelectasis/scarring in the bilateral lower lung zones. No other acute cardiopulmonary disease.
--- NOTE | 2024-10-22 11:04 | ECG_ITS ---
Test Date: 2024-10-22 11:08:39 Measurements Intervals [place] Rate: 135 P: 0 NE: 0 QRS: -50 QRSD: 109 T: 85 QT: 301 QTc: 452 Interpretive Statements ATRIAL FLUTTER/TACHYCARDIA WITH RAPID VENTRICULAR RESPONSE INCOMPLETE LEFT BUNDLE BRANCH BLOCK POSSIBLE ANTERIOR MYOCARDIAL INFARCTION , PROBABLY OLD INFERIOR INFARCT, AGE INDETERMINATE ST-T WAVE ABNORMALITY IN HIGH LATERAL LEADS- CONSIDER ISCHEMIA ABNORMAL ECG No previous ECG available for comparison Electronically Signed On 10-22-2024 12:29:11 CDT by Jackson Morton D.O.
--- NOTE | 2024-10-22 11:15 | ED_ITS ---
HPI - Chest Pain General Chief Complaint: Chest Pain <NOAH Moreno Last Filed: 10/22/24 17:04> Stated Complaint: increased HR, H/A, weakness <NOAH Moreno Last Filed: 10/22/24 17:04> Time Seen by Provider: 10/22/24 11:14 <NOAH Moreno Last Filed: 10/22/24 17:04> Source: patient <NOAH Moreno Last Filed: 10/22/24 17:04> Mode of arrival: ambulatory <NOAH Moreno Last Filed: 10/22/24 17:04> Limitations: no limitations <NOAH Moreno Last Filed: 10/22/24 17:04> History of Present Illness HPI narrative: Patient is an 84-year-old male, with PMH of DM, HTN, who presents to the ED with c/o dizziness, elevated heart rate. Patient reports he woke up this morning not feeling well. Began having dizziness/lightheadedness around 8:30 a.m.. States he felt his heart racing at that time. He had a twinge of pain in his chest, which was brief and resolved on its own. He states he feels weak overall. Denies headache, confusion, vision changes, focal weakness/numbness, shortness of breath, cough or cold sx's. Patient states he had a similar episode of dizziness like this a few years ago. He states his blood pressure was low at that time. Per records, this occurred in 2020. He was admitted to the hospital at that time and had an abnormal stress test. Underwent cardiac catheterization without any significant stenosis identified. Patient denies previous history of AFib. Is on metoprolol 25mg ER, takes this at night. Took this last night, but did miss a couple of doses over the weekend. Has previously seen Dr. Thomason with Cardiology. <NOAH Moreno Last Filed: 10/22/24 17:04> Related Data Home Medications: Home Medications ?Medication ?Instructions ?Recorded ?Confirmed ?Last Taken ?Type metronidazole 0.75 % topical gel 1 applic topical BID 01/03/20 05/26/22 10/30/21 08:00 History multivitamin 1 cap PO 1200 04/29/20 05/26/22 10/30/21 12:00 History mecobalamin (vitamin B12) 1,000 1,000 mcg PO 1200 11/03/20 05/26/22 10/30/21 09:00 History mcg disintegrating tablet,sublingual loratadine 10 mg capsule 10 mg PO DAILY 06/08/21 05/26/22 10/30/21 08:00 History aspirin 81 mg tablet,delayed 81 mg PO 1200 10/31/21 05/26/22 10/30/21 12:00 History release <Laura Waldron PA-C - Last Filed: 10/22/24 17:04> Allergies/Adverse Reactions: Allergies Allergy/AdvReac Type Severity Reaction Status Date / Time No Known Allergies Allergy Mild Verified 01/29/24 08:10 <Laura Waldron PA-C - Last Filed: 10/22/24 17:04> Review of Systems 2 Review of Systems: All systems reviewed & are unremarkable except as noted in HPI. <Laura Waldron PA-C - Last Filed: 10/22/24 17:04> All systems reviewed & are unremarkable except as noted in HPI and below < Laura Waldron PA-C - Last Filed: 10/22/24 17:04> [facility] Past Medical History Medical History: Medical History Hernia Cholecystectomy planned BMI 29.0-29.9,adult Neuropathy COVID-19 Essential (primary) hypertension Gastro-esophageal reflux disease without esophagitis Other and unspecified hyperlipidemia Hypothyroidism Type 2 diabetes mellitus without complication, with no history of insulin use Vitamin D deficiency <Laura Waldron PA-C - Last Filed: 10/22/24 17:04> Surgical History Surgical History: Surgical History History of colon resection <Laura Waldron PA-C - Last Filed: 10/22/24 17:04> Family History Family History: Family History Mother Family history of gastrointestinal disorder, Onset Age: 85 Family history of congestive heart failure, Onset Age: 85 Patient's mother is Family history of heart disease in male family member before age 55 Family history of congenital heart disease, Onset Age: 85 Father Family history of Alzheimer's disease, Onset Age: 89 Patient's father is Family history of renal failure Sibling Family history of Alzheimer's disease Other Hypertension <Laura Waldron PA-C - Last Filed: 10/22/24 17:04> Social History Social History: Social History Smoking packs per day: 0.5 Smoking cigarettes per day: 10.0 Years smoked: 4 Smoking pack-years: 2.00 Smoking status: Former smoker Tobacco type: cigarettes Second hand tobacco smoke exposure: No Additional smoking assessment comments: quit smoking in 1964 Alcohol intake: former Substance use: never Substance use type: does not use Do You Feel Safe in your Home?: Yes Lack of Transportation: No Lack of Food: Never True Current Housing: I Have Housing Concerned About Future Housing: No Difficulty Paying Gas/Electric Bills: No Difficulty Paying for Meds: No Currently Unemployed: No Education: Bachelor's Degree Difficulty w/ Childcare or Family Care: No Living arrangements: with family Occupation/Education: retired 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 HEAD: Normocephalic, atraumatic. RESPIRATORY: Airway patent, respirations nonlabored. Clear to auscultation bilaterally, no rales, rhonchi, wheezing. CARDIOVASCULAR: Tachycardic with irregular rhythm without murmurs, rubs, or gallops. MUSCULOSKELETAL: Moves all extremities. No gross deformities. No peripheral edema. No calf tenderness. SKIN: Warm, dry, normal color. NEURO: A&O X3. Speech clear. Cranial nerves II-XII grossly intact. Steady gait. No ataxic movements. No focal deficits. PSYCHIATRIC: Appropriate mood and affect. Normal interaction. <Laura Waldron PA-C - Last Filed: 10/22/24 17:04> Course TRASH MAN/PA Physician Supervision For this patient encounter, I reviewed the TRASH MAN or PA documentation, treatment plan, and medical decision making; and I had [id number] time with this patient. <Neal Pruitt MD - Last Filed: 10/22/24 17:59> Vital Signs Vital signs: Vital Signs Pulse Rate 130 H 10/22/24 11:15 Respiratory Rate 14 10/22/24 11:15 Blood Pressure 111/87 10/22/24 11:15 Pulse Oximetry 100 10/22/24 11:15 Pulse Rate 70 10/22/24 17:20 Respiratory Rate 16 10/22/24 17:20 Blood Pressure 160/82 H 10/22/24 17:20 Pulse Oximetry 97 10/22/24 17:20 Oxygen Delivery Room Air 10/22/24 11:25 <Laura Waldron PA-C - Last Filed: 10/22/24 17:04> Vital Signs Pulse Rate 130 H 10/22/24 11:15 Respiratory Rate 14 10/22/24 11:15 Blood Pressure 111/87 10/22/24 11:15 Pulse Oximetry 100 10/22/24 11:15 Pulse Rate 70 10/22/24 17:20 Respiratory Rate 16 10/22/24 17:20 Blood Pressure 160/82 H 10/22/24 17:20 Pulse Oximetry 97 10/22/24 17:20 Oxygen Delivery Room Air 10/22/24 11:25 <Neal Pruitt MD - Last Filed: 10/22/24 17:59> MDM - Chest Pain MDM Narrative Medical decision making narrative: Patient presented to ED with dizziness/lightheadedness, rapid heart rate, CP this morning. Patient tachycardic upon arrival, in no acute distress, VS otherwise stable. Denying active CP. Initial EKG with AFlutter with RVR, rates in 130s. Some nonspecific ST changes. Patient without any previous history of AFib/a flutter. He is not currently on any anticoagulation. Chads Vasc score at least 4. Baseline trop undetectable. Patient given dose of 5 mg IV Lopressor. This did convert patient into normal sinus rhythm. Repeat EKG shows rates into the 70s. No significant ST changes. Patient did mention he missed a few doses of his metoprolol over the weekend. Remainder of basic laboratory studies are fairly unremarkable. Stable electrolytes. Magnesium 1.8. Given IV replacement. BNP WNL for age, no signs of acute fluid overload at this time. CXR w atelectasis, otherwise clear, no pulm edema. D-dimer elevated to 1.61. CTA of chest was obtained and w/o acute findings or PE. 3 Hr trop also within normal range. Patient has not had any further CP in the ED. Discussed case with Dr. Russo, cardiology, advised use could increase metoprolol dose to 50 mg daily if needed, recommended starting anticoagulation, patient can be discharged to follow-up as outpatient or admit if uncomfortable going home. They will consult. Patient given first dose of eliquis 5mg in the ED. Discussed recommendations with patient. He has had intermittent vague episodes of dizziness throughout ED stay and does not feel comfortable going home at this time. Would prefer to be admitted and see Cardiology right away. Discussed case with Brittany Holloway, [facility] hospitalist, accepted patient for admission to med/tele. <Laura Waldron PA-C - Last Filed: 10/22/24 17:04> Medical Records Data Attestation: I reviewed the patient's medical records. <Laura Waldron PA-C - Last Filed: 10/22/24 17:04> Lab Data Attestation: I reviewed the patient's lab results. <NOAH Moreno Last Filed: 10/22/24 17:04> Result diagrams: 10/22/24 11:23 10/22/24 11:23 <NOAH Moreno Last Filed: 10/22/24 17:04> Labs: Lab Results 10/22/24 10/22/24 10/22/24 Range/Units 11:23 11:27 12:21 WBC 9.3 (4.5-10.0) K/mm3 RBC 4.43 L (4.6-6.20) M/mm3 Hgb 13.7 L (14.0-18.0) g/dL Hct 39.5 L (42.0-52.0) % MCV 89.2 (80-100) fl MCH 30.9 (26-34) pg MCHC 34.7 (32-36) g/dl RDW 13.0 (11.5-14.5) % Plt Count 306 (150-375) k/mm3 MPV 8.3 (7.4-10.4) fl Immature Gran % (Auto) 0.4 (0-0.5) % Neut % (Auto) 73.4 H (45.5-73.1) % Lymph % (Auto) 17.2 L (18.3-44.2) % [place] % (Auto) 7.6 (2.6-8.5) % Eos % (Auto) 1.0 (0-4.4) % Baso % (Auto) 0.4 (0.2-1.2) % Lymph # (Auto) 1.61 (0.9-3.2) K/mm3 [place] # (Auto) 0.7 H (0.1-0.6) K/mm3 Eos # (Auto) 0.1 (0-0.3) K/mm3 Baso # (Auto) 0.0 (0.0-0.1) K/mm3 Abs Immat Gran (auto) 0.04 H (0.00-0.031) K/mm3 Absolute Neuts (auto) 6.9 H (1.3-6.7) K/mm3 Absolute Nucleated RBC 0.000 (0.0-0.012) K/mm3 Nucleated RBC % 0.0 (0.0-0.2) % PT 12.7 (11.1-14.7) Seconds INR 0.9 APTT 50.2 H (22.3-36.8) Seconds D-Dimer 1.61 H (<0.48) ug/mL Sodium 139 (137-145) mmol/L Potassium 3.6 (3.4-5.0) mmol/L Chloride 106 (98-107) mmol/L Carbon Dioxide 23 (22-30) mmol/L Anion Gap 10 (4-12) mmol/L BUN 15 (9-20) mg/dL Creatinine 1.05 (0.7-1.3) mg/dL Estim Creat Clear Calc Not Reportable Estimated GFR > 60 (59 - ) Glucose 185 H (65-110) mg/dL Calcium 9.3 (8.4-10.2) mg/dL Magnesium 1.8 (1.6-2.3) mg/dL Total Bilirubin 1.1 (0.2-1.3) mg/dL AST 28 (17-59) U/L ALT 19 (6-50) U/L Alkaline Phosphatase 98 (38-126) U/L Troponin I < 0.012 (0.000-0.034) ng/mL NT-Pro-B Natriuret Pep 591 H (19.9-100) pg/mL Total Protein 7.0 (6.3-8.2) g/dL Albumin 4.2 (3.5-5.1) g/dL Lipase 108 (23-300) U/L TSH (Reflex) 3.400 (0.465-4.68) uIU/mL Influenza A (RT-PCR) Negative (Negative) Influenza B (RT-PCR) Negative (Negative) RSV (RT-PCR) Negative (Negative) SARS-CoV-2 RNA (RT-PCR) Negative (Negative) 10/22/24 Range/Units 14:12 WBC (4.5-10.0) K/mm3 RBC (4.6-6.20) M/mm3 Hgb (14.0-18.0) g/dL Hct (42.0-52.0) % MCV (80-100) fl MCH (26-34) pg MCHC (32-36) g/dl RDW (11.5-14.5) % Plt Count (150-375) k/mm3 MPV (7.4-10.4) fl Immature Gran % (Auto) (0-0.5) % Neut % (Auto) (45.5-73.1) % Lymph % (Auto) (18.3-44.2) % [place] % (Auto) (2.6-8.5) % Eos % (Auto) (0-4.4) % Baso % (Auto) (0.2-1.2) % Lymph # (Auto) (0.9-3.2) K/mm3 [place] # (Auto) (0.1-0.6) K/mm3 Eos # (Auto) (0-0.3) K/mm3 Baso # (Auto) (0.0-0.1) K/mm3 Abs Immat Gran (auto) (0.00-0.031) K/mm3 Absolute Neuts (auto) (1.3-6.7) K/mm3 Absolute Nucleated RBC (0.0-0.012) K/mm3 Nucleated RBC % (0.0-0.2) % PT (11.1-14.7) Seconds INR APTT (22.3-36.8) Seconds D-Dimer (<0.48) ug/mL Sodium (137-145) mmol/L Potassium (3.4-5.0) mmol/L Chloride (98-107) mmol/L Carbon Dioxide (22-30) mmol/L Anion Gap (4-12) mmol/L BUN (9-20) mg/dL Creatinine (0.7-1.3) mg/dL Estim Creat Clear Calc Estimated GFR (59 - ) Glucose (65-110) mg/dL Calcium (8.4-10.2) mg/dL Magnesium (1.6-2.3) mg/dL Total Bilirubin (0.2-1.3) mg/dL AST (17-59) U/L ALT (6-50) U/L Alkaline Phosphatase (38-126) U/L Troponin I 0.021 D (0.000-0.034) ng/mL NT-Pro-B Natriuret Pep (19.9-100) pg/mL Total Protein (6.3-8.2) g/dL Albumin (3.5-5.1) g/dL Lipase (23-300) U/L TSH (Reflex) (0.465-4.68) uIU/mL Influenza A (RT-PCR) (Negative) Influenza B (RT-PCR) (Negative) RSV (RT-PCR) (Negative) SARS-CoV-2 RNA (RT-PCR) (Negative) <Laura Waldron PA-C - Last Filed: 10/22/24 17:04> Lab Results 10/22/24 10/22/24 10/22/24 Range/Units 11:23 11:27 12:21 WBC 9.3 (4.5-10.0) K/mm3 RBC 4.43 L (4.6-6.20) M/mm3 Hgb 13.7 L (14.0-18.0) g/dL Hct 39.5 L (42.0-52.0) % MCV 89.2 (80-100) fl MCH 30.9 (26-34) pg MCHC 34.7 (32-36) g/dl RDW 13.0 (11.5-14.5) % Plt Count 306 (150-375) k/mm3 MPV 8.3 (7.4-10.4) fl Immature Gran % (Auto) 0.4 (0-0.5) % Neut % (Auto) 73.4 H (45.5-73.1) % Lymph % (Auto) 17.2 L (18.3-44.2) % [place] % (Auto) 7.6 (2.6-8.5) % Eos % (Auto) 1.0 (0-4.4) % Baso % (Auto) 0.4 (0.2-1.2) % Lymph # (Auto) 1.61 (0.9-3.2) K/mm3 [place] # (Auto) 0.7 H (0.1-0.6) K/mm3 Eos # (Auto) 0.1 (0-0.3) K/mm3 Baso # (Auto) 0.0 (0.0-0.1) K/mm3 Abs Immat Gran (auto) 0.04 H (0.00-0.031) K/mm3 Absolute Neuts (auto) 6.9 H (1.3-6.7) K/mm3 Absolute Nucleated RBC 0.000 (0.0-0.012) K/mm3 Nucleated RBC % 0.0 (0.0-0.2) % PT 12.7 (11.1-14.7) Seconds INR 0.9 APTT 50.2 H (22.3-36.8) Seconds D-Dimer 1.61 H (<0.48) ug/mL Sodium 139 (137-145) mmol/L Potassium 3.6 (3.4-5.0) mmol/L Chloride 106 (98-107) mmol/L Carbon Dioxide 23 (22-30) mmol/L Anion Gap 10 (4-12) mmol/L BUN 15 (9-20) mg/dL Creatinine 1.05 (0.7-1.3) mg/dL Estim Creat Clear Calc Not Reportable Estimated GFR > 60 (59 - ) Glucose 185 H (65-110) mg/dL Calcium 9.3 (8.4-10.2) mg/dL Magnesium 1.8 (1.6-2.3) mg/dL Total Bilirubin 1.1 (0.2-1.3) mg/dL AST 28 (17-59) U/L ALT 19 (6-50) U/L Alkaline Phosphatase 98 (38-126) U/L Troponin I < 0.012 (0.000-0.034) ng/mL NT-Pro-B Natriuret Pep 591 H (19.9-100) pg/mL Total Protein 7.0 (6.3-8.2) g/dL Albumin 4.2 (3.5-5.1) g/dL Lipase 108 (23-300) U/L TSH (Reflex) 3.400 (0.465-4.68) uIU/mL Influenza A (RT-PCR) Negative (Negative) Influenza B (RT-PCR) Negative (Negative) RSV (RT-PCR) Negative (Negative) SARS-CoV-2 RNA (RT-PCR) Negative (Negative) 10/22/24 Range/Units 14:12 WBC (4.5-10.0) K/mm3 RBC (4.6-6.20) M/mm3 Hgb (14.0-18.0) g/dL Hct (42.0-52.0) % MCV (80-100) fl MCH (26-34) pg MCHC (32-36) g/dl RDW (11.5-14.5) % Plt Count (150-375) k/mm3 MPV (7.4-10.4) fl Immature Gran % (Auto) (0-0.5) % Neut % (Auto) (45.5-73.1) % Lymph % (Auto) (18.3-44.2) % [place] % (Auto) (2.6-8.5) % Eos % (Auto) (0-4.4) % Baso % (Auto) (0.2-1.2) % Lymph # (Auto) (0.9-3.2) K/mm3 [place] # (Auto) (0.1-0.6) K/mm3 Eos # (Auto) (0-0.3) K/mm3 Baso # (Auto) (0.0-0.1) K/mm3 Abs Immat Gran (auto) (0.00-0.031) K/mm3 Absolute Neuts (auto) (1.3-6.7) K/mm3 Absolute Nucleated RBC (0.0-0.012) K/mm3 Nucleated RBC % (0.0-0.2) % PT (11.1-14.7) Seconds INR APTT (22.3-36.8) Seconds D-Dimer (<0.48) ug/mL Sodium (137-145) mmol/L Potassium (3.4-5.0) mmol/L Chloride (98-107) mmol/L Carbon Dioxide (22-30) mmol/L Anion Gap (4-12) mmol/L BUN (9-20) mg/dL Creatinine (0.7-1.3) mg/dL Estim Creat Clear Calc Estimated GFR (59 - ) Glucose (65-110) mg/dL Calcium (8.4-10.2) mg/dL Magnesium (1.6-2.3) mg/dL Total Bilirubin (0.2-1.3) mg/dL AST (17-59) U/L ALT (6-50) U/L Alkaline Phosphatase (38-126) U/L Troponin I 0.021 D (0.000-0.034) ng/mL NT-Pro-B Natriuret Pep (19.9-100) pg/mL Total Protein (6.3-8.2) g/dL Albumin (3.5-5.1) g/dL Lipase (23-300) U/L TSH (Reflex) (0.465-4.68) uIU/mL Influenza A (RT-PCR) (Negative) Influenza B (RT-PCR) (Negative) RSV (RT-PCR) (Negative) SARS-CoV-2 RNA (RT-PCR) (Negative) <Neal Pruitt MD - Last Filed: 10/22/24 17:59> Imaging Data Attestation: I personally reviewed and interpreted this imaging study as follows: < Laura Waldron PA-C - Last Filed: 10/22/24 17:04> Radiologist's impression: ITS Impressions Chest X-Ray 10/22/24 12:19 IMPRESSION: 1. Mild linear discoid atelectasis/scarring in the bilateral lower lung zones. No other acute cardiopulmonary disease. Chest CTA 10/22/24 13:45 IMPRESSION: 1. No pulmonary embolism or other acute cardiopulmonary disease. <Laura Waldron PA-C - Last Filed: 10/22/24 17:04> ECG Data EKG #1: Attestation: I personally reviewed and interpreted this ECG as follows: <Luara Waldron PA-C - Last Filed: 10/22/24 17:04> ECG completion date: 10/22/24 <Laura Waldron PA-C - Last Filed: 10/22/24 17:04> ECG completion time: 11:08 <Laura Waldron PA-C - Last Filed: 10/22/24 17:04> EKG Interpretation: tachycardia (135), atrial flutter, non-specific ST changes, ST depression and LBBB (incomplete) <Laura Waldron PA-C - Last Filed: 10/22/24 17:04> EKG #2: Attestation: I personally reviewed and interpreted this ECG as follows: <Laura Waldron PA-C - Last Filed: 10/22/24 17:04> ECG completion date: 10/22/24 <Laura Waldron PA-C - Last Filed: 10/22/24 17:04> ECG completion time: 12:06 <Laura Waldron PA-C - Last Filed: 10/22/24 17:04> EKG Interpretation: normal rate (72), sinus rhythm and non-specific ST changes <Laura Waldron PA-C - Last Filed: 10/22/24 17:04> Discharge Plan Discharge Clinical Impression: Dizziness Atrial flutter Qualifiers: Atrial flutter type: unspecified Qualified Code(s): I48.92 - Unspecified atrial flutter <Laura Waldron PA-C - Last Filed: 10/22/24 17:04> Patient Disposition: Still a Patient <Laura Waldron PA-C - Last Filed: 10/22/24 17:04> Condition: Stable <Laura Waldron PA-C - Last Filed: 10/22/24 17:04>
[2024-10-22 11:30] LABS: Basophils Percent Auto 0.4 % (0.2-1.2); Eosinophils Absolute Auto 0.1 K/mm3 (0-0.3); Hematocrit 39.5 % (42.0-52.0); Hemoglobin 13.7 g/dL (14.0-18.0); Immature Granulocyte Absolute 0.04 K/mm3 (0.00-0.031); Immature Granulocyte Percent A 0.4 % (0-0.5); Lymphocytes Absolute Auto 1.61 K/mm3 (0.9-3.2); Lymphocytes Percent Auto 17.2 % (18.3-44.2); Mean Corpuscular HGB Conc 34.7 g/dl (32-36); Mean Corpuscular Hemoglobin 30.9 pg (26-34); Mean Corpuscular Volume 89.2 fl (80-100); Mean Platelet Volume 8.3 fl (7.4-10.4); Monocytes Absolute Auto 0.7 K/mm3 (0.1-0.6); Monocytes Percent Auto 7.6 % (2.6-8.5); Neutrophils Absolute Auto 6.9 K/mm3 (1.3-6.7); Neutrophils Percent Auto 73.4 % (45.5-73.1); Platelet Count Result 306 k/mm3 (150-375); Red Blood Count 4.43 M/mm3 (4.6-6.20); White Blood Count 9.3 K/mm3 (4.5-10.0)
[2024-10-22 11:41] LABS: Alanine Aminotransferase 19 U/L (6-50); Albumin Level 4.2 g/dL (3.5-5.1); Alkaline Phosphatase 98 U/L (38-126); Anion Gap 10 mmol/L (4-12); Aspartate Amino Transferase 28 U/L (17-59); Bilirubin,Total 1.1 mg/dL (0.2-1.3); Blood Urea Nitrogen 15 mg/dL (9-20); Calcium 9.3 mg/dL (8.4-10.2); Carbon Dioxide 23 mmol/L (22-30); Chloride 106 mmol/L (98-107); Estimated Glomerular Filt Rate > 60; Glucose 185 mg/dL (65-110); Lipase 108 U/L (23-300); Potassium 3.6 mmol/L (3.4-5.0); Sodium 139 mmol/L (137-145)
[2024-10-22 11:44] LABS: INR 0.9; Prothrombin Time 12.7 Seconds (11.1-14.7)
[2024-10-22 11:45] LABS: Partial Thromboplastin Time 50.2 Seconds (22.3-36.8)
[2024-10-22 11:52] LABS: Troponin I < 0.012 ng/mL (0.000-0.034)
[2024-10-22] MEDS: SODIUM CHLORIDE 0.9% IV 1,000 ML 999 ML IV CONT (11:55)
[2024-10-22] MEDS: METOPROLOL TARTRATE INJ 5 MG/5 ML VIAL IV PUSH (11:55)
[2024-10-22] MEDS: ASPIRIN 81 MG CHEWABLE TABLET 324 MG PO (11:55)
[2024-10-22 12:01] LABS: Magnesium 1.8 mg/dL (1.6-2.3)
--- NOTE | 2024-10-22 12:03 | ECG_ITS ---
Test Date: 2024-10-22 12:06:47 Measurements Intervals [place] Rate: 72 P: 91 [place]: 177 QRS: -47 QRSD: 108 T: 38 QT: 382 QTc: 420 Interpretive Statements SINUS RHYTHM POSSIBLE ANTERIOR MYOCARDIAL INFARCTION , OF INDETERMINATE AGE INFERIOR INFARCT, AGE INDETERMINATE ABNORMAL ECG Compared to ECG 10/22/2024 11:08:39 Atrial flutter no longer present Electronically Signed On 10-22-2024 12:28:20 CDT by Jackson Morton D.O.
[2024-10-22 12:10] LABS: NT Pro B Type Natriuretic Pept 591 pg/mL (19.9-100)
--- NOTE | 2024-10-22 12:11 | PC.NURSE ---
attempted to obtain covid swab, patient in xray at this time.
--- OUTSIDE RECORDS SUMMARY | 2024-10-22 12:14 | XMS_ITS | Encounter Summary ---
Author Name [facility] Organization [facility] [place] Address [address] [place] [address] Care Team Providers Care Real Estate Sales Associate Name Role Phone HUONG ROWELL Primary Care Provider JANKI Miller Unavailable Unavailable Insurance Providers: All historical and [...] COURTNEY PLUS 1 Jul 24, 2015 106 [id number] [phone] PAYAM ZHENG [facility] PATIENT ANTHEM [place] FEP PREFERRED PROVIDER ORGANIZAT ION (PPO) FEP STAND COURTNEY PLUS 1 Jul 24, 2015 106 [id number] [phone] PAYAM ZHENG [facility] PATIENT [place] PREFERRED PROVIDER ORGANIZAT ION (PPO) FEP STAND COURTNEY PLUS 1 Jul 24, 2015 106 [id number] [phone] PAYAM ZHENG [facility] PATIENT BCBS FEP RETIREE [id number] Jan 22, 2004 [id number] PAYAM ZHENG PATIENT [place] FEP PREFERRED PROVIDER ORGANIZAT ION (PPO) FEP STAND COURTNEY PLUS 1 Jul 24, 2015 106 [id number] [phone] PAYAM ZHENG PATIENT [place] FEP PRESCRIPT [place]ON [id number] Jan 22, 2004 [id number] PAYAM ZHENG PATIENT MEDICARE (WNR) MEDICARE (M) PART A Jan 22, 2004 PART A [id number] PAYAM ZHENG PATIENT MEDICARE (WNR) MEDICARE (M) PART B Jan 22, 2004 PART B [id number] [phone] PAYAM ZHENG PATIENT MEDICARE (WNR) MEDICARE (M) PART A Jan 22, 2004 PART A [id number] PAYAM ZHENG PATIENT MEDICARE (WNR) MEDICARE (M) PART B Jan 22, 2004 PART B [id number] [phone] PAYAM ZHENG PATIENT Selected Encounter This section includes the information on record at ID for the Encounter. Date/Time Encounter Type Encounter Description Reason Provider Source Jun 04, 2024 10:30 AM OFFICE O/P EST MOD 30 MIN OPHTHALMOLOGY ICD-10-CM H25.13 Age-related nuclear cataract, bilateral [facility] En[facility] Template Text not used by ID Assessments - Encounter Diagnoses This section includes the primary and secondary diagnoses documented for the Encounter. Date/Time Primary/Secondary Diagnosis Diagnosis Name Provider Source Jun 04, 2024 12:28 PM PRIMARY Age-related nuclear cataract, bilateral VEGA,VAUGHN Rudd [facility] Jun 04, 2024 12:28 PM SECONDARY Cortical age-related cataract, right eye [facility] [facility] Jun 04, 2024 12:28 PM SECONDARY Diplopia [facility] Jun 04, 2024 12:28 PM SECONDARY Intermittent alternating exotropia [facility] Jun 04, 2024 12:28 PM SECONDARY Puckering of macula, left eye VEGA,VAUGHN B [facility] Jun 04, 2024 12:28 PM SECONDARY Round hole, right eye VEGAVAUGHN Parsons [facility] Plan of Treatment: Future Appointments (+ 6 months) and Future Tests (+/- 45 days) The Plan of Treatment section includes future care activities for the patient [facility] This section includes future appointments and future orders which are active, pending or scheduled. Future Appointments This section includes appointments that were scheduled to occur 6 months from the date of the Encounter, up to a maximum of 20 appointments. The data comes from all ID treatment facilities. Appointment Date/Time Appointment Type Appointme nt Facility Name Jun 19, 2024 09:00 AM AMBULATORY - SURGERY [facility] Jun 21, 2024 10:00 AM AMBULATORY - SUR[facility]ERY [facility] Jul 03, 2024 10:20 AM AMBULATORY - SUR[facility]ERY [facility] Jul 15, 2024 10:00 AM AMBULATORY - SUR[facility]ERY [facility] Jul 30, 2024 01:00 PM AMBULATORY - NONE [facility] Jul 31, 2024 08:30 AM AMBULATORY - NONE [facility] Aug 03, 2024 02:29 PM AMBULATORY - MEDICINE [facility] Aug 07, 2024 09:20 AM [facility]AT[facility]ERY [facility] Aug 16, 2024 08:15 AM [facility] Aug 21, 2024 10:00 AM AM[facility]ULATORY - SUR[facility]ERY [facility] Aug 28, 2024 09:00 AM AMBULATORY - MEDICINE [facility] Sep 05, 2024 09:00 AM AMBULATORY - SURGERY [facility] Sep 19, 2024 01:00 PM AMBULATORY - SUR[facility]ERY [facility] Sep 27, 2024 11:00 AM AMBULATORY - SUR[facility]ERY [facility] Oct 02, 2024 11:15 AM AMBULATORY - MEDICINE [facility] Oct 02, 2024 01:00 PM [facility]ORY [facility] Oct 21, 2024 01:30 PM AMBULATORY - SURGERY [facility] Porsha [facility] Oct 21, 2024 02:30 PM AMBULATORY - SURGERY [facility] P[facility] Oct 29, 2024 01:00 PM AMBULATORY - REHAB MEDICIN E [facility] November 25, 2024 10:45 AM AMBULATORY - MEDICINE [facility] Lab Results: +/- 30 days of the encounter This section includes the Chemistry and Hematology Lab Results on record with ID for the patient. Radiology Reports and Pathology Reports are provided separately, in subsequent sections. Lab Results This section contains the Chemistry/Hematology Results that were resulted 30 days before or 30 daysafter the date of the Encounter. Date/Time Source Result Type Result - Unit Interpretation Reference Range Comment Jul 03, 2024 11:25 AM [facility] BASIC METABOLIC PANEL Specimen Type: PLASMA Comment: No hemolysis noted. Ordering Provider: JYOTI SIMMONS Report Released Date/Time: Jun 24, 2024 11:11 AM Reporting Lab: [address] [id number] Performing Lab: [address] [address] CREATININE 1.17 mg/dL 0.7-1.3 UREA NITROGEN 15.4 mg/dL 9.0-25.0 GLUCOSE 175 mg/dL H 72-99 SODIUM 140 meq/L 136-145 POTASSIUM 4.3 meq/L 3.5-5 CHLORIDE 106 meq/L 98-107 CARBON DIOXIDE 25 meq/L 22-31 CALCIUM 9.0 mg/dL 8.4-10.4 EGFR (CKD-EPI 2020) 61.1 >60 Jul 03, 2024 11:25 AM [facility] CBC Specimen Type: BLOOD No comment entered. Ordering Provider: JYOTI SIMMONS Report Released Date/Time: Jun 24, 2024 11:11 AM Reporting Lab: [place] [id number] [facility] [id number] Performing Lab: [address] [id number] WBC 8.1 10*3/uL 3.6-11.2 RBC 3.72 10*6/uL [...] and tobacco- related health factors from the ID facility where the Encounter took place. Current Smoking Status This section includes the most current smoking, or tobacco-related health factor, from the ID facility where the Encounter took place. Date/Time Current Smoking Status Comment Leonela franco December 07, 2015 03:10 PM QUIT TOBACCO >7 YEARS AGO [facility] Tobacco Use History This section includes a history of the smoking, or tobacco-related health factors, that were collected on or before the date of the Encounter. The data comes from the ID facility where the Encounter took place. Date/Time Smoking Status/Tobacco Use Comment F acility May 20, 2014 09:22 AM QUIT TOBACCO >7 YEARS AGO [facility] Feb 19, 2013 09:01 AM QUIT TOBACCO >7 YEARS AGO [facility] December 20, 2006 08:06 AM QUIT TOBACCO >7 YEARS AGO [facility] Jun 12, 2006 09:00 AM CURRENT NON-TOBACC O USER-HX OF USE [facility] Jun 12, 2006 09:00 AM TOBACCO TERMINATION STAGE [facility] December 07, 2005 11:12 AM CURRENT NON-TOBACC O USER-HX OF USE [facility] December 07, 2005 11:12 AM TOBACCO TERMINATION STAGE [facility] Mar 21, 2005 01:46 PM CURRENT NON-TOBACC O USER-HX OF USE [facility] Mar 21, 2005 01:46 PM TOBACCO TERMINATION STAGE [facility] Mar 03, 2004 09:58 AM CURRENT NON-TOBACC O USER-HX OF USE [facility] Mar 03, 2004 09:58 AM TOBACCO TERMINATION [facility] Apr 21, 2003 09:25 AM CURRENT NON-TOBACC O USER-HX OF USE QUIT [address] [place] [address] Apr 21, 2003 09:25 AM CURRENT NON-TOBACC O USER-RECENTLY QUIT quit [address] [place] [address] Apr 21, 2003 09:25 AM TOBACCO USE quit [address] [place] [address] Nov 07, 2002 09:14 AM CURRENT NON-TOBACC O USER-RECENTLY QUIT quit [address] [place] [address] Nov 07, 2002 09:14 AM TOBACCO USE quit [address] [place] [address] Nov 08, 2001 08:09 AM CURRENT NON-TOBACC O USER-HX OF USE quit 20 yrs. ago [facility] Advance Directives: All historical and current Section Date Range: From patient's date of to the date document was created. This section includes ALL of a patient's completed or amended [place] Advance and Rescinded Directives. The entries below indicate that a directive exists for the patient, but an actual copy is not included with this document. The data comes from all [facility]. Date Advance Directives Provider Source Mar 26, 2021 ADVANCE DIRECTIVE DISCUSSION Jaqueline LEON [facility] Jun 12, 2014 ADVANCE DIRECTIVE DISCUSSION GÓMEZ ESPINAL [facility] Radiology Reports: +/- 30 days of the [...] the Encounter. The data comes from all [facility]. Date/Time Radiology Report Provider Source Jul 03, 2024 10:59 AM CHEST X-RAY, 2 VIE WS: VAUGHN ZHENG [id number] -[id number] M Exm Date: JUL 03, 2024@10:59 Req Phys: DIAMOND SCRUGGS Loc: -GEN SURG I CLINIC (Req'g Lo Img Loc: -MAIN RADIOLOGY SUITE Service: [address] [address] (Case [id number] COMPLETE) CHEST X-RAY, 2 VIEWS (RAD Detailed) CPT:52620 Reason for Study: Pre Op Clinical History: Report Status: Verified Date Reported: JUL 04, 2024 Date Verified: JUL 04, 2024 Claims Counsel E-Sig:/ES/KATY MCNEIL MD Report: Case #[id number]. Chest examination. COMPARISON: 05/25/2023. Finding: PA and lateral views of the chest examination shows no evidence of cardiomegaly. Tortuous aorta is seen. No evidence of pulmonary vascular congestion, consolidation or mass. No evidence of pleural effusion or pneumothorax. Impression: No evidence of pulmonary consolidation, mass or lymphadenopathy. Primary Interpreting Staff: KATY MCNEIL MD, Staff Physician - Radiologist (Claims Counsel) /KATY GONZALEZ [facility] Pathology Reports: +/- 30 days of [...] the Encounter. The data comes from all [facility]. Date/Time Pathology Report Provider Source Jun 07, [...] crust scale. The cells stain positive for Arverne-1/Melan-A and SOX10 while they are negative for [...] Performing Laboratory: Surgical Pathology Report Performed By: [address]# [id number] [address] [place] [id number] $FTR - - - - - - [...] - - VAUGHN ZHENG STANDARD FORM 515 ID:[id number] SEX:M :[id number] AGE: 84 LOC:DERMCON PCP: Melania Kaiser MD /joss HOUSTON MD DERMATOLOGY & DERMATOPATHOLOGY Signed: 06/07/2024 12:01 BERNIE HOUSTON [facility] Encounter Notes: All associated encounter notes This section contains the clinical notes associated to the Encounter. 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 DM - Stable mild [employer] OU without DME - last A1c 7.4 [...] - may be time for CEIOL OD /es/ Jared Vega III MD Staff Physician, Ophthalmology Signed: 06/04/2024 12:28 VAUGHN VEGA III [facility]
--- OUTSIDE RECORDS SUMMARY | 2024-10-22 12:14 | XMS_ITS | Encounter Summary ---
Author Name [facility] [place] [facility] [place] Address [address] [place] [address] Care Team Providers Care Oil Driller Name Role Phone HUONG ROWELL Primary Care [...] COURTNEY PLUS 1 Jul 24, 2015 106 [id number] [phone] PAYAM ZHENG PATIENT [place] F[place] PREFERRED PROVIDER ORGANIZAT ION (PPO) FEP STAND COURTNEY PLUS 1 Jul 24, 2015 106 [id number] [phone] PAYAM ZHENG PATIENT [place] PREFERRED PROVIDER ORGANIZAT ION (PPO) FEP STAND COURTNEY PLUS 1 Jul 24, 2015 106 [id number] [phone] PAYAM ZHENG PATIENT BCBS FEP RETIREE [id number] Jan 22, 2004 105 [id number] [phone] PAYAM ZHENG PATIENT [place] F[place] PREFERRED PROVIDER ORGANIZAT ION (PPO) FEP STAND COURTNEY PLUS 1 Jul 24, 2015 106 [id number] [phone] PAYAM ZHENG PATIENT [place] FEP PRESCRIPT ION [id number] Jan 22, 2004 [id number] PAYAM ZHENG PATIENT MEDICARE (WNR) MEDICARE (M) PART B Jan 22, 2004 PART B [id number] PAYAM ZHENG PATIENT MEDICARE (WNR) MEDICARE (M) PART A Jan 22, 2004 PART A [id number] [phone] PAYAM ZHENG PATIENT MEDICARE (WNR) MEDICARE (M) PART A Jan 22, 2004 PART A [id number] PAYAM ZHENG PATIENT MEDICARE (WNR) MEDICARE (M) PART B Jan 22, 2004 PART B [id number] PAYAM ZHENG PATIENT Selected Encounter This section includes the information on record at [place] for the Encounter. Date/Time Encounter Type Encounter Description Reason Pro vider Source IHE Encounter Template Text not used by [place] Advance Directives: All historical and current Section [...] 26, 2021 ADVANCE DIRECTIVE DISCUSSION Jaqueline LEON [facility] Jun 12, 2014 ADVANCE DIRECTIVE DISCUSSION GÓMEZ ESPINAL [facility]
--- OUTSIDE RECORDS SUMMARY | 2024-10-22 12:14 | XMS_ITS | Continuity of Care Document ---
Author Name [facility] Organization [facility] Care Team Providers Care Digital Marketing Officer Name Role Phone [facility] Unavailable Unavailable Problems Combined list of problems from Department of Defense and Veterans Affairs facilities. It does not include entries that were removed or entered in error. Problem Status Onset Date Problem Type Date of Resolution Comments Source Allergic Rhinitis Active Condition [facility] B12 deficiency monitoring status (SNOMED CT 640266793) Active Condition [facility] Benign essential hypertension (SNOMED CT 9658014) Active Condition Feb 19, 2013 Entered By: JEWEL HERNANDEZ Comment: amlodipine 2.5 mg [facility] Benign prostatic hyperplasia Active Condition [facility] Diabetes mellitus Active Condition [facility] Diverticulosis Colon Active Condition Jun 01, 2010 Entered By: JEWEL HERNANDEZ Comment: colectomy-colono scopy done February 2010--due 2020 [facility] Dyspepsia Active Condition [facility] Hemorrhoids Active Condition [facility] Hypertension * (ICD-9-CM 401.9) Active Condition [facility] Hypothyroidism Active Condition Jan 232012 Entered By: JEWEL HERNANDEZ Comment: 50 mcg levothyroxine [facility] Impaired glucose tolerance Active Condition [facility] Incisional hernia without mention of obstruction or gangrene (ICD-9-CM 553.21) Active Condition Aug 26 14 Entered By: JEWEL HERNANDEZ Comment: ventral hernia repair jun 10 2013. [facility] Pain in joint involving lower leg (ICD-9-CM 719.46) Active Condition [facility] Skin Cancer Active Condition [facility] Diagnosis: ICD-10-CM C44.90 Unspecified malignant neoplasm of skin, unspecified Active Diagnosis [facility] Diagnosis: ICD-10-CM Z46.1 Encounter for fitting and adjustment of hearing aid Active Diagnosis [facility] Diagnosis: ICD-10-CM C43.62 Malignant melanoma of left upper limb, including shoulder Active Diagnosis [facility] Diagnosis: ICD-10-CM I10 Essential (primary) hypertension Active Diagnosis [facility] Diagnosis: ICD-10-CM E11.65 Type 2 diabetes mellitus with hyperglycemia Active Diagnosis [facility] Diagnosis: ICD-10-CM L57.0 Actinic keratosis Active Diagnosis [facility] Diagnosis: ICD-10-CM C43.9 Malignant melanoma of skin, unspecified Active Diagnosis [facility] Diagnosis: ICD-10-CM Z48.817 Encntr for surgical aftcr fol surgery on the skin, subcu Active Diagnosis [facility] Diagnosis: ICD-10-CM Z01.818 Encounter for other preprocedural examination Active Diagnosis [facility] Diagnosis: ICD-10-CM H90.3 Sensorineural hearing loss, bilateral Active Diagnosis [facility] Diagnosis: ICD-10-CM H25.813 Combined forms of age-related cataract, bilateral Active Diagnosis [facility] Diagnosis: ICD-10-CM H25.13 Age-related nuclear cataract, bilateral Active Diagnosis [facility] Diagnosis: ICD-10-CM Z46.89 Encounter for fitting and adjustment of oth devices Active Diagnosis [facility] Diagnosis: ICD-10-CM R54 Age-related physical debility Active Diagnosis [facility] Diagnosis: ICD-10-CM E11.3293 Type 2 diab with mild nonp rtnop without macular edema, bi Active Diagnosis [facility] Diagnosis: ICD-10-CM M79.643 Pain in unspecified hand Active Diagnosis [facility] Diagnosis: ICD-10-CM Z00.01 Encounter for general adult medical exam w abnormal findings Active Diagnosis [facility] Medications Combined list of outpatient medications from Department of Defense and Veterans Affairs facilities.Medications provided include 1) outpatient medications from the last 15 months, and 2) patient-reported medications. Medication Details Route Status Patient Instructions Prescription Expires Prescription Number Last Dispense Date Ordering Provider Order Date Order Qty Source ACETAMINOPH EN 325MG TAB TAKE TWO TABLETS BY MOUTH FOUR TIMES A DAY FOR PAIN CAUTION: DO NOT EXCEED 4000MG PER DAY ACETAMIN OPHEN (APAP) FROM ALL MEDS. ORAL 08/30/2024 [id number] 5 Mina HOANG GERDA [address] [facility] AMLODIPINE BESYLATE 5MG TAB TAKE ONE TABLET BY MOUTH ONCE A DAY ORAL ACTIVE ROSHAN HERNANDEZ E B [address] [facility] CEPHALEXIN 500MG CAP TAKE ONE CAPSULE BY MOUTH THREE TIMES A DAY TAKE WITH FOOD. TAKE UNTIL GONE UNLESS OTHERWIS E DIRECTED . ORAL 08/30/2024 [id number] 5 Mina HOANG GERDA [address] [facility] CHLORHEXIDI NE GLUCONATE 4% LIQUID,TOP APPLY MODERATE AMOUNT TO AFFECTED AREA(S) DIRECTED FOR SKIN DISINFEC TION (TOPICAL USE ONLY) AVOID CONTACT WITH EYES. TOPICA L 07/24/2024 [id number] AFT,[place] [address] [facility] CHOLECALCIF PAM 50MCG (2,000UNIT) TAB TAKE ONE TABLET BY MOUTH ONCE A DAY ORAL ACTIVE ROSHAN HERNANDEZ E B [address] [facility] CYANOCOBALA MIN 1000MCG TAB TAKE ONE TABLET BY MOUTH ONCE A DAY ORAL ACTIVE ROSHAN HERNANDEZ E B 2017 [facility] EMPAGLIFLOZ IN 5MG/METFORM IN 1000MG TAB,ORAL TAKE ONE TABLET BY MOUTH TWICE A DAY ORAL ACTIVE ROBERTO PANCHAL 2023 [facility] FLUOROURACI L 5% CREAM,TOP APPLY THIN FILM [...] WEEKS TO BOTH ARMS TOPICA L 06/27/2024 [id number] SERJIO SCRUGGS G 2023 40 [facility] LEVOTHYROXI NE NA 75MCG TAB (SYNTHROID) TAKE ONE TABLET BY MOUTH EVERY MORNING BEFORE A MEAL ORAL ACTIVE ORIANA ARRINGTON 2020 [facility] LISINOPRIL 40MG TAB TAKE ONE TABLET BY MOUTH ONCE A DAY ORAL ACTIVE DAVID,SRE E B 2015 [facility] Jie LORATADINE 10MG TAB TAKE ONE TABLET BY MOUTH ONCE A DAY ORAL ACTIVE DAVID,SRE E B 2015 [facility] METRONIDAZO LE 0.75% GEL,TOP APPLY SPARINGL Y TO AFFECTED AREA(S) TWICE A DAY TOPICA L ACTIVE MATA TORRES [address] [facility] TAYLA Ceron MULTIVITAMI NS CAP/TAB TAKE ONE TABLET BY MOUTH ONCE A DAY ORAL ACTIVE MATA TORRES [address] [facility] TAYLA Ceron OMEPRAZOLE 20MG CAP,EC TAKE 2 CAPSULES BY MOUTH EVERY MORNING ORAL ACTIVE DAVIDSRE E B [address] [facility] OXYCODONE HCL 5MG TAB TAKE ONE TABLET BY MOUTH EVERY 6 HOURS NEEDED FOR POST-OPE RATIVE PAIN MAY CAUSE CONSTIPA TION ORAL 08/30/2024 [id number] 5 Mina HOANG [address] [facility] Jie PHENYLEPHRI NE HCL 0.25% SUPP,RTL UNWRAP AND INSERT 1 SUPPOSIT ORY RECTALLY TWICE DAILY NEEDED RECTAL ACTIVE DAVIDSRE E B [address] [facility] PSYLLIUM POWDER,ORAL MIX AND DRINK BY MOUTH ONCE A DAY ORAL ACTIVE JOSE ENRIQUE MARKS 2004 [facility] Immunizations Combined list of available immunizations from the Department of Defense and Veterans Affairs facilities. 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 [facility] INFLUENZA, UNSPECIFIED FORMULATION [address] [facility] COVID-19 (MODERNA), MRNA, LNP-S, PF, 100 MCG OR 50 MCG DOSE 3 [address] [facility] INFLUENZA, UNSPECIFIED FORMULATION [address] [facility] COVID-19 (MODERNA), MRNA, LNP-S, PF, 100 MCG/0.5 ML DOSE 2 2020 207 complet ed MOD; [id number]; 1 [facility] COVID-19 (MODERNA), MRNA, LNP-S, PF, 100 MCG/0.5 ML DOSE 1 2020 207 complet ed MOD; [id number]; 1 [facility] INFLUENZA, UNSPECIFIED FORMULATION 2019 88 complet ed [facility] I[facility] ZOSTER RECOMBINANT 1 2018 187 complet ed [facility] INFLUENZA, INJECTABLE, QUADRIVALENT, PRESERVATIVE FREE [address] [facility] INFLUENZA, INJECTABLE, QUADRIVALENT, PRESERVATIVE FREE [address] [facility] INFLUENZA, SEASONAL, INJECTABLE [address] [facility] INFLUENZA, SEASONAL, INJECTABLE, PRESERVATIVE FREE 2015 140 complet ed [facility] INFLUENZA, UNSPECIFIED FORMULATION 2014 88 complet ed [facility] PNEUMOCOCCAL CONJUGATE PCV 13 2014 133 complet ed [facility] INFLUENZA, UNSPECIFIED FORMULATION 2013 88 complet ed [facility] INFLUENZA, UNSPECIFIED FORMULATION 2012 88 complet ed [facility] INFLUENZA, UNSPECIFIED FORMULATION 2011 88 complet ed [facility] TD(ADULT) UNSPECIFIED FORMULATION 2011 139 complet ed Left Deltoid [facility] INFLUENZA, UNSPECIFIED FORMULATION 2010 88 complet ed [facility] INFLUENZA, UNSPECIFIED FORMULATION 2009 88 complet ed [facility] INFLUENZA, UNSPECIFIED FORMULATION 2008 88 complet ed [facility] ZOSTER LIVE 2008 121 complet ed [facility] INFLUENZA, UNSPECIFIED FORMULATION 2007 88 complet ed per letter [facility] INFLUENZA, UNSPECIFIED FORMULATION 2006 88 complet ed [facility] INFLUENZA, UNSPECIFIED FORMULATION 2005 JOEY GIL 88 complet ed [facility] INFLUENZA, UNSPECIFIED FORMULATION 2004 88 complet ed [facility] PNEUMOCOCCAL, UNSPECIFIED FORMULATION 2003 109 complet ed [facility] INFLUENZA, UNSPECIFIED FORMULATION 2002 88 complet ed [facility] TD(ADULT) UNSPECIFIED FORMULATION 2001 139 complet ed [facility] Results Combined list of recent chemistry, hematology and other laboratory results from Department of Defense and Veterans Affairs, ranging from 15 months to all on record, depending upon the facility. Order Name Results Value Reference Range Date Interpretation Specimen Comments Source HGA1C HEMOGLOBIN A1C/HEMOGLO BIN.TOTAL IN BLOOD 7.0 4.0 - 6.0 10/02 H Specimen Type: BLOOD No comment entered. Ordering Provider: JAY CORDOVA Report Released Date/Time: Oct 02, 2024 11:59 AM Reporting Lab: [facility] [address] [facility] [address] Performing Lab: [facility] [address] [facility] [address] [facility] FERRITIN FERRITIN [MASS/VOLUM E] IN SERUM OR PLASMA 37.12 ng/mL 22 - 275 10/02 Specimen Type: SERUM No comment entered. Ordering Provider: JAY CORDOVA Report Released Date/Time: Oct 02, 2024 11:59 AM Reporting Lab: [place] [address] [facility] [address] Performing Lab: [place] [address] [facility] [address] [facility] IRON/TIBC PROFILE IRON BINDING CAPACITY [MASS/VOLUM E] IN SERUM OR PLASMA 306 ug/dL 250 - 450 10/02 Specimen Type: SERUM Comment: No hemolysis noted. Ordering Provider: JAY CORDOVA Report Released Date/Time: Oct 02, 2024 11:59 AM Reporting Lab: [address] [address] Performing Lab: [facility] [address] [facility] [address] [facility] IRON/TIBC PROFILE TRANSFERRIN [MASS/VOLUM E] IN SERUM OR PLASMA 245 mg/dL 163 - 344 10/02 Specimen Type: SERUM Comment: No hemolysis noted. Ordering Provider: JAY CORDOVA Report Released Date/Time: Oct 02, 2024 11:59 AM Reporting Lab: [facility] [address] [facility] [address] Performing Lab: [facility] [address] [facility] [address] [facility] IRON/TIBC PROFILE IRON SATURATION [MASS FRACTION] IN SERUM OR PLASMA 19 20 - 50 10/02 L Specimen Type: SERUM Comment: No hemolysis noted. Ordering Provider: JAY CORDOVA Report Released Date/Time: Oct 02, 2024 11:59 AM Reporting Lab: [facility] [address] [facility] [address] Performing Lab: [facility] [address] [facility] [address] [facility] IRON/TIBC PROFILE IRON [MASS/VOLUM E] IN SERUM OR PLASMA 59 ug/dL 65 - 175 10/02 L Specimen Type: SERUM Comment: No hemolysis noted. Ordering Provider: JAY CORDOVA Report Released Date/Time: Oct 02, 2024 11:59 AM Reporting Lab: [place] [address] [facility] [address] Performing Lab: [facility] [address] [facility] [address] [facility] MICRAL/CR EAT PROFILE (STL) ALBUMIN [MASS/VOLUM E] IN URINE 19.0 mg/L 10/02 Specimen Type: URINE No comment entered. Ordering Provider: JAY CORDOVA Report Released Date/Time: Oct 02, 2024 11:59 AM Reporting Lab: [place] [address] [facility] [address] Performing Lab: [facility] [address] [facility] [address] [facility] MICRAL/CR EAT PROFILE (STL) ALBUMIN/CRE ATININE [MASS RATIO] IN URINE 53 mg/g 0 - 29 10/02 H Specimen Type: URINE No comment entered. Ordering Provider: JAY CORDOVA Report Released Date/Time: Oct 02, 2024 11:59 AM Reporting Lab: [facility] [address] [facility] [address] Performing Lab: [facility] [address] [facility] [address] [facility] MICRAL/CR EAT PROFILE (STL) CREATININE [MASS/VOLUM E] IN URINE 35.6 mg/dL 63 - 166 10/02 L Specimen Type: URINE No comment entered. Ordering Provider: JAY CORDOVA Report Released Date/Time: Oct 02, 2024 11:59 AM Reporting Lab: [facility] [address] [facility] [address] Performing Lab: [facility] [address] [facility] [address] [facility] COMPREHEN SIVE METABOLIC PANEL CREATININE [MASS/VOLUM E] IN SERUM OR PLASMA 1.03 mg/dL 0.7 - 1.3 10/02 Specimen Type: PLASMA Comment: No hemolysis noted. Ordering Provider: JAY CORDOVA Report Released Date/Time: Oct 02, 2024 11:59 AM Reporting Lab: [facility] [address] [facility] [address] Performing Lab: [facility] [address] [facility] [address] [facility] COMPREHEN SIVE METABOLIC PANEL UREA NITROGEN [MASS/VOLUM E] IN SERUM OR PLASMA 16.2 mg/dL 9.0 - 25.0 10/02 Specimen Type: PLASMA Comment: No hemolysis noted. Ordering Provider: JAY CORDOVA Report Released Date/Time: Oct 02, 2024 11:59 AM Reporting Lab: [facility] [address] [address] Performing Lab: [facility] [address] [facility] [address] [facility] COMPREHEN SIVE METABOLIC PANEL GLUCOSE [MASS/VOLUM E] IN SERUM OR PLASMA 169 mg/dL 72 - 99 10/02 H Specimen Type: PLASMA Comment: No hemolysis noted. Ordering Provider: JAY CORDOVA Report Released Date/Time: Oct 02, 2024 11:59 AM Reporting Lab: [facility] [address] [facility] [address] Performing Lab: [facility] [address] [address] [facility] COMPREHEN SIVE METABOLIC PANEL SODIUM [MOLES/VOLU ME] IN SERUM OR PLASMA 138 meq/L 136 - 145 10/02 Specimen Type: PLASMA Comment: No hemolysis noted. Ordering Provider: JAY CORDOVA Report Released Date/Time: Oct 02, 2024 11:59 AM Reporting Lab: [facility] [address] [facility] [address] Performing Lab: [facility] [address] [facility] [address] [facility] COMPREHEN SIVE METABOLIC PANEL POTASSIUM [MOLES/VOLU ME] IN SERUM OR PLASMA 3.6 meq/L 3.5 - 5 10/02 Specimen Type: PLASMA Comment: No hemolysis noted. Ordering Provider: JAY CORDOVA Report Released Date/Time: Oct 02, 2024 11:59 AM Reporting Lab: [facility] [address] [facility] [address] Performing Lab: [facility] [address] [facility] [address] [facility] COMPREHEN SIVE METABOLIC PANEL CHLORIDE [MOLES/VOLU ME] IN SERUM OR PLASMA 105 meq/L 98 - 107 10/02 Specimen Type: PLASMA Comment: No hemolysis noted. Ordering Provider: JAY CORDOVA Report Released Date/Time: Oct 02, 2024 11:59 AM Reporting Lab: [facility] [address] [facility] [address] Performing Lab: [facility] [address] [facility] [address] [facility] COMPREHEN SIVE METABOLIC PANEL CARBON DIOXIDE, TOTAL [MOLES/VOLU ME] IN SERUM OR PLASMA 20 meq/L 22 - 31 10/02 L Specimen Type: PLASMA Comment: No hemolysis noted. Ordering Provider: JAY CORDOVA Report Released Date/Time: Oct 02, 2024 11:59 AM Reporting Lab: [facility] [address] [facility] [address] Performing Lab: [facility] [address] [facility] [address] [facility] COMPREHEN SIVE METABOLIC PANEL CALCIUM [MASS/VOLUM E] IN SERUM OR PLASMA 8.7 mg/dL 8.4 - 10.4 10/02 Specimen Type: PLASMA Comment: No hemolysis noted. Ordering Provider: JAY CORDOVA Report Released Date/Time: Oct 02, 2024 11:59 AM Reporting Lab: [facility] [address] [facility] [address] Performing Lab: [facility] [address] [facility] [address] [facility] COMPREHEN SIVE METABOLIC PANEL PROTEIN [MASS/VOLUM E] IN SERUM OR PLASMA 7.3 g/dL 6 - 8.6 10/02 Specimen Type: PLASMA Comment: No hemolysis noted. Ordering Provider: JAY CORDOVA Report Released Date/Time: Oct 02, 2024 11:59 AM Reporting Lab: [facility] [address] [facility] [address] Performing Lab: [facility] [address] [facility] [address] [facility] COMPREHEN SIVE METABOLIC PANEL ALBUMIN [MASS/VOLUM E] IN SERUM OR PLASMA 4.0 g/dL 3.4 - 5 10/02 Specimen Type: PLASMA Comment: No hemolysis noted. Ordering Provider: JAY CORDOVA Report Released Date/Time: Oct 02, 2024 11:59 AM Reporting Lab: [facility] [address] [facility] [address] Performing Lab: [facility] [address] [facility] [address] [facility] COMPREHEN SIVE METABOLIC PANEL BILIRUBIN.T OTAL [MASS/VOLUM E] IN SERUM OR PLASMA 0.8 mg/dL 0.2 - 1.2 10/02 Specimen Type: PLASMA Comment: No hemolysis noted. Ordering Provider: JAY CORDOVA Report Released Date/Time: Oct 02, 2024 11:59 AM Reporting Lab: [facility] [address] [facility] [address] Performing Lab: [facility] [address] [facility] [address] [facility] COMPREHEN SIVE METABOLIC PANEL ALKALINE PHOSPHATASE [ENZYMATIC ACTIVITY/VO LUME] IN SERUM OR PLASMA 101 U/L 40 - 150 10/02 Specimen Type: PLASMA Comment: No hemolysis noted. Ordering Provider: JAY CORDOVA Report Released Date/Time: Oct 02, 2024 11:59 AM Reporting Lab: [facility] [address] [facility] [address] Performing Lab: [facility] [address] [facility] [address] [facility] COMPREHEN SIVE METABOLIC PANEL ASPARTATE AMINOTRANSF ERASE [ENZYMATIC ACTIVITY/VO LUME] IN SERUM OR PLASMA 25 U/L 5 - 34 10/02 Specimen Type: PLASMA Comment: No hemolysis noted. Ordering Provider: JAY CORDOVA Report Released Date/Time: Oct 02, 2024 11:59 AM Reporting Lab: [facility] [address] [facility] [address] Performing Lab: [facility] [address] [facility] [address] [facility] COMPREHEN SIVE METABOLIC PANEL ALANINE AMINOTRANSF ERASE [ENZYMATIC ACTIVITY/VO LUME] IN SERUM OR PLASMA 15 U/L 8 - 40 10/02 Specimen Type: PLASMA Comment: No hemolysis noted. Ordering Provider: JAY CORDOVA Report Released Date/Time: Oct 02, 2024 11:59 AM Reporting Lab: [facility] [address] [facility] [address] Performing Lab: [facility] [address] [facility] [address] [facility] COMPREHEN SIVE METABOLIC PANEL GLOMERULAR FILTRATION RATE/1.73 SQ M.PREDICTED [VOLUME RATE/AREA] IN SERUM, PLASMA OR BLOOD BY CREATININE- BASED FORMULA (CKD-EPI 2020) 71.2 60 10/02 Specimen Type: PLASMA Comment: No hemolysis noted. Ordering Provider: JAY CORDOVA Report Released Date/Time: Oct 02, 2024 11:59 AM Reporting Lab: [address] [address] Performing Lab: [address] [address] [facility] CBC LEUKOCYTES [#/VOLUME] IN BLOOD BY AUTOMATED COUNT 10.7 10*3/u L 3.6 - 11.2 10/02 Specimen Type: BLOOD No comment entered. Ordering Provider: JAY CORDOVA Report Released Date/Time: Oct 02, 2024 11:59 AM Reporting Lab: [address] [address] Performing Lab: [address] [address] [facility] CBC ERYTHROCYTE S [#/VOLUME] IN BLOOD BY AUTOMATED COUNT 3.97 10*6/u L 4.10 - 5.70 10/02 L Specimen Type: BLOOD No comment entered. Ordering Provider: JAY CORDOVA Report Released Date/Time: Oct 02, 2024 11:59 AM Reporting Lab: [address] [address] Performing Lab: [address] [address] [facility] CBC HEMOGLOBIN [MASS/VOLUM E] IN BLOOD 12.0 g/dL 13.1 - 16.8 10/02 L Specimen Type: BLOOD No comment entered. Ordering Provider: JAY CORDOVA Report Released Date/Time: Oct 02, 2024 11:59 AM Reporting Lab: [address] [address] Performing Lab: [address] [address] [facility] CBC HEMATOCRIT [VOLUME FRACTION] OF BLOOD 35.9 38.2 - 48.4 10/02 L Specimen Type: BLOOD No comment entered. Ordering Provider: JAY CORDOVA Report Released Date/Time: Oct 02, 2024 11:59 AM Reporting Lab: [facility] [address] [place] [address] Performing Lab: [address] [phone] [place] [address] CBC MCV [ENTITIC VOLUME] BY AUTOMATED COUNT 90.4 fL 80.0 - 100.0 10/02 Specimen Type: BLOOD No comment entered. Ordering Provider: JAY CORDOVA Report Released Date/Time: Oct 02, 2024 11:59 AM Reporting Lab: [address] [address] Performing Lab: [address] [place] [address] CBC MCH [ENTITIC MASS] BY AUTOMATED COUNT 30.2 pg 27.0 - 34.0 10/02 Specimen Type: BLOOD No comment entered. Ordering Provider: JAY CORDOVA Report Released Date/Time: Oct 02, 2024 11:59 AM Reporting Lab: [address] [address] Performing Lab: [address] [address] [facility] CBC MCHC [MASS/VOLUM E] BY AUTOMATED COUNT 33.4 g/dL 33.0 - 36.0 10/02 Specimen Type: BLOOD No comment entered. Ordering Provider: JAY CORDOVA Report Released Date/Time: Oct 02, 2024 11:59 AM Reporting Lab: [facility] [address] [place] [id number] Performing Lab: [address] [id number] [facility] CBC PLATELETS [#/VOLUME] IN BLOOD BY AUTOMATED COUNT 282 10*3/u L 150 - 400 10/02 Specimen Type: BLOOD No comment entered. Ordering Provider: JAY CORDOVA Report Released Date/Time: Oct 02, 2024 11:59 AM Reporting Lab: [facility] [facility] [address] [facility] [address] Performing Lab: [facility] [address] [place] [phone] [facility] CBC PLATELET MEAN VOLUME [ENTITIC VOLUME] IN BLOOD BY AUTOMATED COUNT 8.7 fL 7.5 - 11.2 10/02 Specimen Type: BLOOD No comment entered. Ordering Provider: JAY CORDOVA Report Released Date/Time: Oct 02, 2024 11:59 AM Reporting Lab: [facility] [address] [place] [phone] Performing Lab: [address] [phone] [place] [address] CBC ERYTHROCYTE DISTRIBUTIO N WIDTH [RATIO] BY AUTOMATED COUNT 12.9 11.8 - 15.1 10/02 Specimen Type: BLOOD No comment entered. Ordering Provider: JAY CORDOVA Report Released Date/Time: Oct 02, 2024 11:59 AM Reporting Lab: [facility] [address] [place] [phone] Per[address] Lab: [facility] [address] [place] [phone] [facility] CBC LYMPHOCYTES /100 LEUKOCYTES IN BLOOD BY AUTOMATED COUNT 16 10/02 Specimen Type: BLOOD No comment entered. Ordering Provider: JAY CORDOVA Report Released Date/Time: Oct 02, 2024 11:59 AM Reporting Lab: [facility] [address] [place] [phone] Per[address]: [facility] [address] [place] [phone] [facility] CBC MONOCYTES/1 00 LEUKOCYTES IN BLOOD BY AUTOMATED COUNT 8 10/02 Specimen Type: BLOOD No comment entered. Ordering Provider: JAY CORDOVA Report Released Date/Time: Oct 02, 2024 11:59 AM Reporting Lab: [facility] [address] [facility] [address] Performing Lab: [facility] [address] [facility] [address] [facility] CBC NEUTROPHILS /100 LEUKOCYTES IN BLOOD BY AUTOMATED COUNT 74 10/02 Specimen Type: BLOOD No comment entered. Ordering Provider: JAY CORDOVA Report Released Date/Time: Oct 02, 2024 11:59 AM Reporting Lab: [facility] [address] [facility] [address] Per[address] Lab: [facility] [address] [facility] [address] [facility] CBC EOSINOPHILS /100 LEUKOCYTES IN BLOOD BY AUTOMATED COUNT 1 10/02 Specimen Type: BLOOD No comment entered. Ordering Provider: JAY CORDOVA Report Released Date/Time: Oct 02, 2024 11:59 AM Reporting Lab: [facility] [address] [address] Performing Lab: [facility] [address] [facility] [address] [facility] CBC BASOPHILS/1 00 LEUKOCYTES IN BLOOD BY AUTOMATED COUNT 0 10/02 Specimen Type: BLOOD No comment entered. Ordering Provider: JAY OCRDOVA Report Released Date/Time: Oct 02, 2024 11:59 AM Reporting Lab: [facility] [address] [facility] [address] Performing Lab: [facility] [address] [facility] [address] [facility] CBC LYMPHOCYTES [#/VOLUME] IN BLOOD BY AUTOMATED COUNT 1.67 10*3/u L 0.77 - 4.50 10/02 Specimen Type: BLOOD No comment entered. Ordering Provider: JAY CORDOVA Report Released Date/Time: Oct 02, 2024 11:59 AM Reporting Lab: [facility] [address] [facility] [address] Performing Lab: [facility] [address] [place] [phone] [facility] CBC MONOCYTES [#/VOLUME] IN BLOOD BY AUTOMATED COUNT 0.84 10*3/u L 0.19 - 0.80 10/02 H Specimen Type: BLOOD No comment entered. Ordering Provider: JAY CORDOVA Report Released Date/Time: Oct 02, 2024 11:59 AM Reporting Lab: [facility] [address] [place] [phone] Performing Lab: [address] [address] [facility] CBC NEUTROPHILS [#/VOLUME] IN BLOOD BY AUTOMATED COUNT 7.92 10*3/u L 2.10 - 8.00 10/02 Specimen Type: BLOOD No comment entered. Ordering Provider: JAY CORDOVA Report Released Date/Time: Oct 02, 2024 11:59 AM Reporting Lab: [facility] [address] [place] [phone] Performing Lab: [facility] [address] [place] [address] [facility] CBC EOSINOPHILS [#/VOLUME] IN BLOOD BY AUTOMATED COUNT 0.13 10*3/u L 0.00 - 0.60 10/02 Specimen Type: BLOOD No comment entered. Ordering Provider: JAY CORDOVA Report Released Date/Time: Oct 02, 2024 11:59 AM Reporting Lab: [facility] [address] [place] [phone] Performing Lab: [facility] [address] [place] [phone] [facility] CBC BASOPHILS [#/VOLUME] IN BLOOD BY AUTOMATED COUNT 0.03 10*3/u L 0.00 - 0.20 10/02 Specimen Type: BLOOD No comment entered. Ordering Provider: JAY CORDOVA Report Released Date/Time: Oct 02, 2024 11:59 AM Reporting Lab: [place] [address] [facility] [address] Performing Lab: [place] [address] [facility] [address] [facility] GLUCOSE,B LOOD-poct (STL) GLUCOSE [MASS/VOLUM E] IN BLOOD BY AUTOMATED TEST STRIP 173 mg/dL 72 - 99 07/31 H Specimen Type: BLOOD Comment: Test Performed by: [id number] Meter #: [id number] Ordering Provider: STAR SIMMONS A Report Released Date/Time: Jul 31, 2024 01:30 PM Reporting Lab: [address] [address] Performing Lab: [address] [address] [facility] GLUCOSE,B LOOD-poct (STL) GLUCOSE [MASS/VOLUM E] IN BLOOD BY AUTOMATED TEST STRIP 148 mg/dL 72 - 99 07/31 H Specimen Type: BLOOD Comment: Test Performed by: [id number] Meter #: [id number] Ordering Provider: STAR SIMMONS A Report Released Date/Time: Jul 31, 2024 09:08 AM Reporting Lab: [address] [address] Performing Lab: [address] [address] [facility] BASIC METABOLIC PANEL CREATININE [MASS/VOLUM E] IN SERUM OR PLASMA 1.17 mg/dL 0.7 - 1.3 07/03 Specimen Type: PLASMA Comment: No hemolysis noted. Ordering Provider: STAR SIMMONS A Report Released Date/Time: Jun 24, 2024 11:11 AM Reporting Lab: [address] [address] Performing Lab: [address] [address] [facility] BASIC METABOLIC PANEL UREA NITROGEN [MASS/VOLUM E] IN SERUM OR PLASMA 15.4 mg/dL 9.0 - 25.0 07/03 Specimen Type: PLASMA Comment: No hemolysis noted. Ordering Provider: STAR SIMMONS Report Released Date/Time: Jun 24, 2024 11:11 AM Reporting Lab: [facility] [address] [place] [address] Performing Lab: [facility] [address] [place] [phone] [facility] BASIC METABOLIC PANEL GLUCOSE [MASS/VOLUM E] IN SERUM OR PLASMA 175 mg/dL 72 - 99 07/03 H Specimen Type: PLASMA Comment: No hemolysis noted. Ordering Provider: STAR SIMMONS Report Released Date/Time: Jun 24, 2024 11:11 AM Reporting Lab: [address] [address] Performing Lab: [address] [address] [facility] BASIC METABOLIC PANEL SODIUM [MOLES/VOLU ME] IN SERUM OR PLASMA 140 meq/L 136 - 145 07/03 Specimen Type: PLASMA Comment: No hemolysis noted. Ordering Provider: STAR SIMMONS A Report Released Date/Time: Jun 24, 2024 11:11 AM Reporting Lab: [address] [address] Performing Lab: [facility] [address] [place] [address] [facility] BASIC METABOLIC PANEL POTASSIUM [MOLES/VOLU ME] IN SERUM OR PLASMA 4.3 meq/L 3.5 - 5 07/03 Specimen Type: PLASMA Comment: No hemolysis noted. Ordering Provider: STAR SIMMONS A Report Released Date/Time: Jun 24, 2024 11:11 AM Reporting Lab: [address] [address] Performing Lab: [address] [address] [facility] BASIC METABOLIC PANEL CHLORIDE [MOLES/VOLU ME] IN SERUM OR PLASMA 106 meq/L 98 - 107 07/03 Specimen Type: PLASMA Comment: No hemolysis noted. Ordering Provider: STAR SIMMONS A Report Released Date/Time: Jun 24, 2024 11:11 AM Reporting Lab: [place] [address] [facility] [address] Performing Lab: [address] [address] [facility] BASIC METABOLIC PANEL CARBON DIOXIDE, TOTAL [MOLES/VOLU ME] IN SERUM OR PLASMA 25 meq/L 22 - 31 07/03 Specimen Type: PLASMA Comment: No hemolysis noted. Ordering Provider: STAR SIMMONS A Report Released Date/Time: Jun 24, 2024 11:11 AM Reporting Lab: [address] [address] Performing Lab: [place] [address] [facility] [address] [facility] BASIC METABOLIC PANEL CALCIUM [MASS/VOLUM E] IN SERUM OR PLASMA 9.0 mg/dL 8.4 - 10.4 07/03 Specimen Type: PLASMA Comment: No hemolysis noted. Ordering Provider: STAR SIMMONS A Report Released Date/Time: Jun 24, 2024 11:11 AM Reporting Lab: [address] [address] Performing Lab: [address] [address] [facility] BASIC METABOLIC PANEL GLOMERULAR FILTRATION RATE/1.73 SQ M.PREDICTED [VOLUME RATE/AREA] IN SERUM, PLASMA OR BLOOD BY CREATININE- BASED FORMULA (CKD-EPI 2020) 61.1 60 07/03 Specimen Type: PLASMA Comment: No hemolysis noted. Ordering Provider: STAR SIMMONS A Report Released Date/Time: Jun 24, 2024 11:11 AM Reporting Lab: [address] [address] Performing Lab: [facility] [address] [facility] [address] [facility] CBC LEUKOCYTES [#/VOLUME] IN BLOOD BY AUTOMATED COUNT 8.1 10*3/u L 3.6 - 11.2 07/03 Specimen Type: BLOOD No comment entered. Ordering Provider: STAR SIMMONS A Report Released Date/Time: Jun 24, 2024 11:11 AM Reporting Lab: [place] [address] [facility] [address] Performing Lab: [place] [address] [facility] [address] [facility] CBC ERYTHROCYTE S [#/VOLUME] IN BLOOD BY AUTOMATED COUNT 3.72 10*6/u L 4.10 - 5.70 07/03 L Specimen Type: BLOOD No comment entered. Ordering Provider: STAR SIMMONS A Report Released Date/Time: Jun 24, 2024 11:11 AM Reporting Lab: [place] [address] [facility] [address] Performing Lab: [address] [address] [facility] CBC HEMOGLOBIN [MASS/VOLUM E] IN BLOOD 11.6 g/dL 13.1 - 16.8 07/03 L Specimen Type: BLOOD No comment entered. Ordering Provider: STAR SIMMONS A Report Released Date/Time: Jun 24, 2024 11:11 AM Reporting Lab: [address] [address] Performing Lab: [address] [address] [facility] CBC HEMATOCRIT [VOLUME FRACTION] OF BLOOD 33.8 38.2 - 48.4 07/03 L Specimen Type: BLOOD No comment entered. Ordering Provider: STAR SIMMONS A Report Released Date/Time: Jun 24, 2024 11:11 AM Reporting Lab: [address] [address] Performing Lab: [facility] [address] [facility] [address] [facility] CBC MCV [ENTITIC VOLUME] BY AUTOMATED COUNT 90.9 fL 80.0 - 100.0 07/03 Specimen Type: BLOOD No comment entered. Ordering Provider: STAR SIMMONS A Report Released Date/Time: Jun 24, 2024 11:11 AM Reporting Lab: [address] [address] Performing Lab: [address] [address] [facility] CBC MCH [ENTITIC MASS] BY AUTOMATED COUNT 31.2 pg 27.0 - 34.0 07/03 Specimen Type: BLOOD No comment entered. Ordering Provider: STAR SIMMONS A Report Released Date/Time: Jun 24, 2024 11:11 AM Reporting Lab: [place] [address] [facility] [address] Performing Lab: [address] [address] [facility] CBC MCHC [MASS/VOLUM E] BY AUTOMATED COUNT 34.3 g/dL 33.0 - 36.0 07/03 Specimen Type: BLOOD No comment entered. Ordering Provider: STAR SIMMONS A Report Released Date/Time: Jun 24, 2024 11:11 AM Reporting Lab: [place] [address] [facility] [address] Performing Lab: [address] [address] [facility] CBC PLATELETS [#/VOLUME] IN BLOOD BY AUTOMATED COUNT 252 10*3/u L 150 - 400 07/03 Specimen Type: BLOOD No comment entered. Ordering Provider: STAR SIMMONS A Report Released Date/Time: Jun 24, 2024 11:11 AM Reporting Lab: [address] [address] Performing Lab: [facility] [address] [facility] [address] [facility] CBC PLATELET MEAN VOLUME [ENTITIC VOLUME] IN BLOOD BY AUTOMATED COUNT 8.4 fL 7.5 - 11.2 07/03 Specimen Type: BLOOD No comment entered. Ordering Provider: STAR SIMMONS A Report Released Date/Time: Jun 24, 2024 11:11 AM Reporting Lab: [facility] [address] [facility] [address] Performing Lab: [facility] [address] [facility] [address] [facility] CBC ERYTHROCYTE DISTRIBUTIO N WIDTH [RATIO] BY AUTOMATED COUNT 13.2 11.8 - 15.1 07/03 Specimen Type: BLOOD No comment entered. Ordering Provider: STAR SIMMONS A Report Released Date/Time: Jun 24, 2024 11:11 AM Reporting Lab: [facility] [address] [facility] [address] Performing Lab: [facility] [address] [facility] [address] [facility] CBC LYMPHOCYTES /100 LEUKOCYTES IN BLOOD BY AUTOMATED COUNT 14 07/03 Specimen Type: BLOOD No comment entered. Ordering Provider: STAR SIMMONS A Report Released Date/Time: Jun 24, 2024 11:11 AM Reporting Lab: [facility] [address] [facility] [address] Performing Lab: [facility] [address] [facility] [address] [facility] CBC MONOCYTES/1 00 LEUKOCYTES IN BLOOD BY AUTOMATED COUNT 9 07/03 Specimen Type: BLOOD No comment entered. Ordering Provider: STAR SIMMONS A Report Released Date/Time: Jun 24, 2024 11:11 AM Reporting Lab: [facility] [address] [facility] [address] Performing Lab: [facility] [address] [facility] [address] [facility] CBC NEUTROPHILS /100 LEUKOCYTES IN BLOOD BY AUTOMATED COUNT 75 07/03 Specimen Type: BLOOD No comment entered. Ordering Provider: STAR SIMMONS A Report Released Date/Time: Jun 24, 2024 11:11 AM Reporting Lab: [address] [address] Performing Lab: [address] [address] [facility] CBC EOSINOPHILS /100 LEUKOCYTES IN BLOOD BY AUTOMATED COUNT 1 07/03 Specimen Type: BLOOD No comment entered. Ordering Provider: STAR SIMMONS A Report Released Date/Time: Jun 24, 2024 11:11 AM Reporting Lab: [address] [address] Performing Lab: [address] [address] [facility] CBC BASOPHILS/1 00 LEUKOCYTES IN BLOOD BY AUTOMATED COUNT 1 07/03 Specimen Type: BLOOD No comment entered. Ordering Provider: STAR SIMMONS A Report Released Date/Time: Jun 24, 2024 11:11 AM Reporting Lab: [address] [address] Performing Lab: [address] [address] [facility] CBC LYMPHOCYTES [#/VOLUME] IN BLOOD BY AUTOMATED COUNT 1.17 10*3/u L 0.77 - 4.50 07/03 Specimen Type: BLOOD No comment entered. Ordering Provider: STAR SIMMONS A Report Released Date/Time: Jun 24, 2024 11:11 AM Reporting Lab: [address] [address] Performing Lab: [address] [address] [facility] CBC MONOCYTES [#/VOLUME] IN BLOOD BY AUTOMATED COUNT 0.70 10*3/u L 0.19 - 0.80 07/03 Specimen Type: BLOOD No comment entered. Ordering Provider: STAR SIMMONS A Report Released Date/Time: Jun 24, 2024 11:11 AM Reporting Lab: [address] [address] Performing Lab: [address] [address] [facility] CBC NEUTROPHILS [#/VOLUME] IN BLOOD BY AUTOMATED COUNT 6.11 10*3/u L 2.10 - 8.00 07/03 Specimen Type: BLOOD No comment entered. Ordering Provider: STAR SIMMONS A Report Released Date/Time: Jun 24, 2024 11:11 AM Reporting Lab: [address] [address] Performing Lab: [address] [address] [facility] CBC EOSINOPHILS [#/VOLUME] IN BLOOD BY AUTOMATED COUNT 0.09 10*3/u L 0.00 - 0.60 07/03 Specimen Type: BLOOD No comment entered. Ordering Provider: STAR SIMMONS A Report Released Date/Time: Jun 24, 2024 11:11 AM Reporting Lab: [address] [address] Performing Lab: [address] [address] [facility] CBC BASOPHILS [#/VOLUME] IN BLOOD BY AUTOMATED COUNT 0.04 10*3/u L 0.00 - 0.20 07/03 Specimen Type: BLOOD No comment entered. Ordering Provider: STAR SIMMONS A Report Released Date/Time: Jun 24, 2024 11:11 AM Reporting Lab: [address] [address] Performing Lab: [address] [address] [facility] Vital Signs Combined list of inpatient and outpatient Vital Signs from Department of Defense and Veterans Affairs, ranging from 12 months to all on record, depending upon the facility. Vital Sign Value Date Comments Source SYSTOLIC BLOOD PRESSURE 147 10/03/19 11:15:02 [facility] DIASTOLIC BLOOD PRESSURE 64 025 11:15:02 [facility] PULSE OXIMETRY 99 10/02/2024 11:15:02 [facility] WEIGHT 171.6 10/02/2024 11:15:02 [facility] BMI 30 kg/m2 10/02/2024 11:15:02 [facility] PAIN 2 10/02/2024 11:15:02 [facility] TEMPERATURE 97.9 10/02/2024 11:15:02 [facility] PULSE 62 10/02/2024 11:15:02 [facility] RESPIRATION 17 10/02/2024 11:15:02 [facility] SYSTOLIC BLOOD PRESSURE 146 08/21/19 09:55:08 [facility] DIASTOLIC BLOOD PRESSURE 70 025 09:55:08 [facility] PULSE OXIMETRY 98 08/21/2024 09:55:08 [facility] WEIGHT 171.7 08/21/2024 09:55:08 [facility] BMI 30 kg/m2 08/21/2024 09:55:08 [facility] PAIN 1 08/21/2024 09:55:08 [facility] HEIGHT 63 08/21/2024 09:55:08 [facility] TEMPERATURE 97.9 08/21/2024 09:55:08 [facility] PULSE 71 08/21/2024 09:55:08 [facility] RESPIRATION 16 08/21/2024 09:55:08 [facility] SYSTOLIC BLOOD PRESSURE 149 08/16/19 08:25:21 [facility] DIASTOLIC BLOOD PRESSURE 63 025 08:25:21 [facility] PULSE OXIMETRY 99 08/16/2024 08:25:21 [facility] WEIGHT 172.1 08/16/2024 08:25:21 [facility] BMI 31 kg/m2 08/16/2024 08:25:21 [facility] PAIN 0 08/16/2024 08:25:21 [facility] HEIGHT 63 08/16/2024 08:25:21 [facility] TEMPERATURE 97.9 08/16/2024 08:25:21 [facility] PULSE 66 08/16/2024 08:25:21 [facility] RESPIRATION 18 08/16/2024 08:25:21 [facility] SYSTOLIC BLOOD PRESSURE 140 08/07/19 25 09:11:41 [facility] DIASTOLIC BLOOD PRESSURE 67 025 09:11:41 [facility] PULSE OXIMETRY 98 08/07/2024 09:11:41 [facility] WEIGHT 169 08/07/2024 09:11:41 [facility] BMI 30 kg/m2 08/07/2024 09:11:41 [facility] PAIN 1 08/07/2024 09:11:41 [facility] HEIGHT 63 08/07/2024 09:11:41 [facility] TEMPERATURE 97.9 08/07/2024 09:11:41 [facility] PULSE 62 08/07/2024 09:11:41 [facility] RESPIRATION 18 08/07/2024 09:11:41 [facility] SYSTOLIC BLOOD PRESSURE 178 08/03/19 25 14:35:00 [facility] DIASTOLIC BLOOD PRESSURE 76 025 14:35:00 [facility] PAIN 0 08/03/2024 14:35:00 [facility] TEMPERATURE 97.6 08/03/2024 14:35:00 [facility] PULSE 71 08/03/2024 14:35:00 [facility] RESPIRATION 16 08/03/2024 14:35:00 [facility] Encounters Combined list of: 1) Encounters from Department of [facility] Affairs facilities going backup to the last 18 months, not all [place] inpatient encounters are included; 2) Encounters from the Department of [facility] ([place], [place]) facilities going backup to 280 months. Location Location Details Encounter Type Encounter Number Reason For Visit Attending Provider ADM Date DC Date Status Disposition Source [facility] Outpatient Encounter [id number] CHELSEY TRACY URENCIA A 04/26 [facility] [place] [id number] Diagnos is: ICD-10- CM Z00.01 Encount er for general adult medical exam w abnorma l finding s TATIANNA PANCHAL 04/27 [facility] Outpatient Encounter 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 Chiki PLEITEZ III 06/30 [facility] ASS[facility]/REAS SESSMENT [id number] Diagnos is: ICD-10- CM R54 Age-rel ated physica l debilit y DEONJEAN Bey 07/05 [facility] Outpatient Encounter [id number] 08/03 [facility] AQUATIC THERAPY/EX ERCISES [id number] Diagnos is: ICD-10- CM R54 Age-rel ated physica l debilit y DEONJEAN Bey 08/03 [facility] Outpatient Encounter [id number] 08/08 [facility] Outpatient Encounter [id number] KLIPFEL,LA URENCIA A 08/08 [facility] THERAPEUTI C EXERCISES [id number] Diagnos is: ICD-10- CM R54 Age-rel ated physica l debilit y JEAN CHAVARRIA 08/16 [facility] THERAPEUTI C EXERCISES [id number] Diagnos is: ICD-10- CM R54 Age-rel ated physica l debilit y JEAN CHAVARRIA 08/18 [facility] HLTH BHV ASSMT/REAS SESSMENT [id number] Diagnos is: ICD-10- CM I10 Essenti al (primar y) hyperte nsion JEAN CHAVARRIA 08/28 [facility] Outpatient Encounter [id number] KLIPFEL,LA URENCIA A 09/20 [facility] Outpatient Encounter [id number] BUCK,MALLO RY A 09/24 [facility] Outpatient Encounter [id number] [id number] KLIPFEL,LA URENCIA A 09/24 [facility] O/P EST MOD 30 MIN [id number] Diagnos is: ICD-10- CM 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 Outpatient Encounter [id number] TATIANNA PANCHAL 09/25 [facility] G COM STCKING BK 18-30 CUSTM [id number] [id number] Diagnos is: ICD-10- CM Z46.89 Encount er for fitting and adjustm ent of oth devices RECORD,RICHELLE CASTILLO E 10/08 [facility] Outpatient Encounter [id number] TATIANNA PANCHAL 10/31 [facility] Outpatient Encounter [id number] 03/13 [facility] Outpatient Encounter [id number] BUCKKELLEE CHAHAL A 04/23 [facility] O/P EST MOD 30 MIN [id number] [id number] Diagnos is: ICD-10- CM I10 Essenti al (primar y) hyperte nsion TATIANNA PANCHAL 04/25 [facility] OFFICE O/P NEW MOD 45 MIN [id number] [id number] Diagnos is: ICD-10- CM L57.0 Actinic keratos is AB JJ BY LESLIE 05/28 [facility] OFFICE O/P EST MOD 30 MIN [id number] [id number] Diagnos is: ICD-10- CM H25.13 Age-rel ated nuclear catarray oquendo J JANETTE B III 06/04 [facility] CMPTR OPHTH IMG OPTIC NERVE 24329-5.65 [id number] Diagnos is: ICD-10- CM 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 MANDA S 06/04 [facility] Outpatient Encounter [id number] [id number] MARYANN HOUSTON Kayla 06/07 [facility] HEARING AID FITTING/CH ECKING [id number] [id number] Diagnos is: ICD-10- CM H90.3 Sensori neural hearing loss, bilzina Chiki Hurtado 06/19 [facility] OFF/OP CNSLTJ NEW/EST MOD 40 [id number] [id number] Diagnos is: ICD-10- CM C43.62 Maligna nt melanom a of left upper limb, includi ng heathe r AFT,REBECC A 06/21 [facility] [facility] ECKING [id number] [id number] Diagnos is: ICD-10- CM H90.3 Sensori neural hearing loss, bilzina may ELIO MONTES 06/24 [facility] Outpatient Encounter [id number] [id number] 06/24 [facility] Outpatient Encounter [id number] [id number] Jaqueline SHIRLEY 07/01 [facility] OFFICE O/P NEW LOW 30 MIN [id number] [id number] Diagnos is: ICD-10- CM C43.9 Maligna nt melanom a of skin, unspeci HUONG Tony 07/03 [facility] Outpatient Encounter [id number] [id number] Diagnos is: ICD-10- CM Z01.818 Encount er for other preproc edural examina tiLACHO Rizo F 07/04 [facility] HEARING SERVICE [id number] [id number] 9 Diagnos is: ICD-10- CM H90.3 Sensori neural hearing loss, Chiki Simms N 07/15 [facility] PH1 ASSMT&MGMT NQHP 5-10 [id number] [id number] Diagnos is: ICD-10- CM C43.62 Maligna nt melanom a of left upper limb, includi ng ligia r JOSLYN GONZALEZ 07/30 [facility] OFFICE O/P EST LOW 20 MIN [id number] [id number] Diagnos is: ICD-10- CM Z01.818 Encount er for other preproc edural examina sabas HUMMEL MA TODD 07/31 [facility] EDU&TRN PT SELF-MGMT NQHP 1 [id number] [id number] Diagnos is: ICD-10- CM C43.62 Maligna nt melanom a of left upper limb, includi ng heathe r AFT,REBECC A 07/31 [facility] Outpatient Encounter [id number] [id number] 07/31 [facility] HOSP IP/OBS SM DT SF/LOW 45 55841-5.65 [id number] Diagnos is: ICD-10- CM C43.9 Maligna nt melanom a of skin, unspeci fied AFT,REBECC A 07/31 [facility] Outpatient Encounter [id number] [id number] 07/31 [facility] Outpatient Encounter [id number] [id number] Kayla PICKARD 07/31 [facility] Outpatient Encounter 91187-7.65 [id number] HUONG WEATHERS 07/31 [facility] Outpatient Encounter [id number] [id number] 07/31 [facility] Outpatient Encounter [id number] [id number] AFT,SIVA A 07/31 [facility] Outpatient Encounter [id number] [id number] HUONG WEATHERS 07/31 [facility] Outpatient Encounter [id number] [id number] AFT,SIVAC A 07/31 [facility] SPLT AGRFT T/A/L 1ST 100SQCM [id number] [id number] 3 Diagnos is: ICD-10- CM C43.62 Maligna nt melanom a of left upper limb, includi ng shoulde r CARLY RICHARDS M 07/31 [facility] Outpatient Encounter [id number] [id number] CARLY RICHARDS 07/31 [facility] Outpatient Encounter 95047-3.65 [id number] Kayla PICKARD 07/31 [facility] Outpatient Encounter 72077-3.65 [id number] Jie NIE 07/31 [facility] Outpatient Encounter 02393-2.65 [id number] 08/02 [facility] Outpatient Encounter 14077-3.65 [id number] 08/02 [facility] Outpatient Encounter 91497-4.65 [id number] 08/03 [facility] Outpatient Encounter [id number] [id number] JAMAL PRADO ERT C 08/03 [facility] EMERGENCY DEPT VISIT [facility] 83851-4.65 [id number] Diagnos is: ICD-10- CM Z48.817 Encntr for surgica l aftcr fol surgery on the skin, subcu JAMAL PRADO ERT C 08/03 [facility] Outpatient Encounter [id number] [id number] SANTIAGO GONZALEZ 08/03 [facility] Outpatient Encounter [id number] [id number] JAMAL PRADO C 08/03 [facility] PH1 ASSMT&MGMT NQHP 5-10 [id number] [id number] Diagnos is: ICD-10- CM C43.62 Maligna nt melanom a of left upper limb, includi ng EMILIANA Dodd 08/05 [facility] Outpatient Encounter [id number] [id number] ROMAN AVILA S 08/06 [facility] OFFICE O/P EST LOW 20 MIN [id number] [id number] Diagnos is: ICD-10- CM C43.9 Maligna nt melanom a of skin, unspeci fied SARAHYHUONG 08/07 [facility] Outpatient Encounter 47791-2.65 [id number] SARAHYHUONG 08/09 [facility] OFFICE O/P EST LOW 20 MIN 47006-9.65 [id number] Diagnos is: ICD-10- CM C43.9 Maligna nt melanom a of skin, unspeci fied AFT,REBECC A 08/16 [facility] POSTOP FOLLOW-UP VISIT 89659-9.65 [id number] 3 Diagnos is: ICD-10- CM C43.9 Maligna nt melanom a of skin, unspeci ed SARAHYHUONG 08/21 [facility] Outpatient Encounter [id number] [id number] Chiki CHAPMAN 08/27 [facility] OFFICE O/P EST LOW 20 MIN 18795-5.65 [id number] Diagnos is: ICD-10- CM L57.0 Actinic keratos is AB JJ BY LESLIE 08/28 [facility] OFFICE O/P EST LOW 20 MIN [id number] [id number] Diagnos is: ICD-10- CM 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 COUPER,CHRISSY LETICIA G 09/05 [facility] OFFICE O/P EST LOW 20 MIN [id number] [id number] Diagnos is: ICD-10- CM 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 CHRISSY SANCHEZ G 09/19 [facility] HEARING AID XM&SLCTN BINAURL 98102-2.65 [id number] 1 Diagnos is: ICD-10- CM Z46.1 Encount er for fitting and adjustm ent of hearing aid SHANELL CASTELAN 09/27 [facility] Outpatient Encounter [id number] [id number] BUCK,MALLO RY A 09/27 [facility] OFFICE O/P EST MOD 30 MIN [id number] [id number] Diagnos is: ICD-10- CM I10 Essenti al (primar y) hyperte nsion SORIN,ROGELIO HAEL D 10/02 [facility] OFFICE O/P EST LOW 20 MIN [id number] [id number] Diagnos is: ICD-10- CM C43.62 Maligna nt melanom a of left upper limb, includi ng shoulde r CHRISSY SANCHEZ G 10/02 [facility] Outpatient Encounter [id number] [id number] 10/07 [facility] HEARING AID SUP/ACCESS /DEV 56423-8.65 [id number] Diagnos is: ICD-10- CM Z46.1 Encount er for fitting and adjustm ent of hearing aid SHANELL CASTELAN 10/21 [facility] OFFICE O/P EST SF 10 MIN [id number] [id number] Diagnos is: ICD-10- CM C44.90 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 Procedures Combined list of: 1) Procedures from Department of [facility], not all [place] non-surgical procedures are included; 2) All procedures from the Department of [facility] [place] facilities. Procedure Procedure Type Code Date Perfomer Comments Sourc e split thickne skin graft to left dorsal forearm SPLT AGRFT T/A/L 1ST 100SQCM 70342 07/31/2024 SPIKE MACHADO [facility] Wide Local Excision of Left Arm Melanoma EXC TR-EXT MAL+KATELYNN >4 CM 33388 07/31/2024 KWAKU HOANG [facility] Social History Combined list of available smoking, tobacco, and other social history from Department of Defense and Veterans Affairs facilities. Social History Type Response Date Comment Source Tobacco smoking status NHIS VA-TOBACCO FORMER USER 04/25/2024 [facility] History of tobacco use VA-TOBACCO QUIT 15 YRS OR MORE 04/25/2024 [facility] History of tobacco use VA-TOBACCO NEVER USED 04/27/2023 [facility] History of tobacco use VA-TOBACCO NEVER USED 03/11/2022 [facility] History of tobacco use VA-TOBACCO QUIT 15 YRS OR MORE 03/26/2021 [facility] History of tobacco use VA-TOBACCO NEVER USED 10/16/2019 [facility] History of tobacco use VA-TOBACCO FORMER USER 11/13/2017 [facility] History of tobacco use QUIT TOBACCO >7 YEARS AGO 10/24/2017 [facility] History of tobacco use QUIT TOBACCO >7 YEARS AGO 12/07/2015 [facility] History of tobacco use QUIT TOBACCO >7 YEARS AGO 05/20/2014 [facility] History of tobacco use QUIT TOBACCO >7 YEARS AGO 02/19/2013 [facility] History of tobacco use NO TOBACCO >12M <7YR 09/09/2009 [facility] History of tobacco use QUIT TOBACCO >7 YEARS AGO 12/20/2006 [facility] History of tobacco use CURRENT NON-TOBACCO USER-HX OF USE 06/12/2006 [facility] History of tobacco use CURRENT NON-TOBACCO USER-HX OF USE 12/07/2005 [facility] History of tobacco use CURRENT NON-TOBACCO USER-HX OF USE 03/21/2005 [facility] History of tobacco use CURRENT NON-TOBACCO USER-HX OF USE 03/03/2004 [facility] History of tobacco use CURRENT NON-TOBACCO USER-HX OF USE 04/21/2003 QUIT 1972 [facility] History of tobacco use CURRENT NON-TOBACCO USER-RECENTLY QUIT 11/07/2002 quit 1972 [facility] History of tobacco use CURRENT NON-TOBACCO USER-HX OF USE 11/08/2001 quit 20 yrs. ago [facility] Plan of Care List of future care activities from [facility] facilities. Additional future care activities may be listed in the Assessment and Plan section. Date/Time Care Activity Care Activity Detail Facili ty 10/29/2024 AMBULATORY - REHAB MEDICINE AMBULATORY - REHAB MEDICINE [facility] Advance Directives List of completed, amended, or rescinded Advance Directives on record at [facility] facilities. An actual copy of the Directive is not included. Date Advance Directive Provider Source 03/26/2021 ADVANCE DIRECTIVE DISCUSSION Jaqueline LEON [facility] 06/12/2014 ADVANCE DIRECTIVE DISCUSSION GÓMEZ ESPINAL [facility]
--- OUTSIDE RECORDS SUMMARY | 2024-10-22 12:14 | XMS_ITS | Referral Summary ---
Author Organization [facility] [address] Address [address] [place] [address] Care Team Providers Care Terrazzo Mechanic Helper Name Role Phone Glen Enamorado DO Primary Care Provider [phone] Allergies No known active allergies Medications Euthyrox [...] on file Legal Sex Male 2:26 PM [employer] Gender Identity Male 06/21/2021 9:06 AM [employer] Sexual Orientation Bisexual 06/21/2021 9: 15 AM [employer] Last Filed Vital Signs Vital Sign Reading Time Taken Comments Blood Pressure 148/62 11/22/2022 1:42 PM CDT Pulse 80 11/22/2022 1:42 PM CDT Temperature 36.4 C (97.5 F) 06/23/2020 10:59 AM [employer] Respiratory Rate - - Oxygen Saturation 97% 11/22/2022 1:42 PM CDT Inhaled Oxygen Concentration - - Weight 82.6 kg (182 lb) 11/22/2022 1:42 PM CDT Height 160 cm (5' 3 ) 11/22/2022 1:42 PM CDT Body Mass Index 32.24 11/22/2022 1:42 PM CDT Plan of Treatment Not on file Insurance MEDICARE [facility] Care Teams Terrazzo Mechanic Helper Relationship Specialty Start Date End Date Glen Enamorado DO PCP - General Internal Medicine 05/07/20
--- OUTSIDE RECORDS SUMMARY | 2024-10-22 12:14 | XMS_ITS | Encounter Summary ---
Author Name [facility] [place] [facility] [place] [facility] [facility] [place] Address [address] [place] [address] Care Team Providers Care Talent Advisor Name Role Phone HUONG ROWELL Primary Care [...] COURTNEY PLUS 1 Jul 24, 2015 106 [id number] [phone] PAYAM ZHENG PATIENT ANTHEM [employer] [place] FEP PREFERRED PROVIDER ORGANIZAT ION (PPO) FEP STAND COURTNEY PLUS 1 Jul 24, 2015 106 [id number] [phone] PAYAM ZHENG PATIENT AN[place] FEP PREFERRED PROVIDER ORGANIZAT ION (PPO) FEP STAND COURTNEY PLUS 1 Jul 24, 2015 106 [id number] [phone] PAYAM ZHENG PATIENT [employer] FEP RETIREE [id number] Jan 22, 2004 105 [id number] PAYAM ZHENG PATIENT [place] F[place] PREFERRED PROVIDER ORGANIZAT ION (PPO) FEP STAND COURTNEY PLUS 1 Jul 24, 2015 106 [id number] [phone] PAYAM ZHENG PATIENT [place] FEP PRESCRIPT ION [id number] Jan 22, 2004 [id number] PAYAM ZHENG PATIENT MEDICARE (WNR) MEDICARE (M) PART A Jan 22, 2004 PART A [id number] PAYAM ZHENG PATIENT MEDICARE (WNR) MEDICARE (M) PART B Jan 22, 2004 PART B [id number] PAYAM ZHENG PATIENT MEDICARE (WNR) MEDICARE (M) PART A Jan 22, 2004 PART A [id number] [phone] PAYAM ZHENG PATIENT MEDICARE (WNR) MEDICARE (M) PART B Jan 22, 2004 PART B [id number] [phone] PAYAM ZHENG PATIENT Selected Encounter This section includes the information on record at [place] for the Encounter. Date/Time Encounter Type Encounter Description Reason Provider Source Aug 03, 2024 02:29 PM EMERGENCY DEPT VISIT [facility] EMERGENCY DEPT ICD-10-CM Z48.817 Encntr for surgical aftcr fol surgery on the skin, hildau KETTY PRADO Gerardo Encounter Template Text not used by [place] Assessments - Encounter Diagnoses This section includes the primary and secondary diagnoses documented for the Encounter. Date/Time Primary/Secondary Diagnosis Diagnosis Name Provider Source Aug 03, 2024 04:21 PM PRIMARY Encntr for surgical aftcr fol surgery on the skin, hildau KETTY PRADO [facility] Plan of Treatment: Future Appointments (+ [...] Appointment Type Appointme nt Facility Name Aug 07, 2024 09:20 AM AM[facility]ULATORY [facility] Aug 16, 2024 08:15 AM AMBULATORY [facility] SUR[facility]ERY [facility] Aug 21, 2024 10:00 AM AMBULATORY - SUR[facility]ERY [facility] Aug 28, 2024 09:00 AM AMBULATORY - MEDICINE [facility] Sep 05, 2024 09:00 AM AMBULATORY - [facility]ERY [facility] Sep 19, 2024 01:00 PM AMBULATORY - SUR[facility]ERY [facility] Sep 27, 2024 11:00 AM AMBULATORY - SUR[facility]ERY [facility] Oct 02, 2024 11:15 AM AMBULATORY - MEDICINE [facility] Oct 02, 2024 01:00 PM AMBULATORY - SURGERY [facility] Oct 21, 2024 01:30 PM AMBULATORY - SURGERY [facility] Oct 21, 2024 02:30 PM AMBULATORY - SURGERY [facility] Oct 29, 2024 01:00 PM AMBULATORY - REHAB MEDICIN E [facility] November 25, 2024 10:45 AM AMBULATORY - MEDICINE [facility] November 27, 2024 10:30 AM AMBULATORY - SURGERY [facility] November 27, 2024 11:15 AM AMBULATORY - MEDICINE [facility] Active, Pending, and Scheduled Orders This section includes a listing of several types of active, pending, and scheduled orders, including clinic medications orders, diagnostic test orders, procedure orders and consult orders; where the start date of the order is 45 days before the date of the Encounter or 45 days after the date of theEncounter. The data comes from all [place] treatment facilities. Test Date/Time Test Type Test Details Facility Name Jul 31, 2024 01:29 PM Pharmacy - Clinic Medication Order [facility] Lab Results: +/- 30 days of [...] - Unit Interpretation Reference Range Comment Jul 31, 2024 01:28 PM [facility] GLUCOSE,BLOOD-poct (STL) Specimen Type: BLOOD Comment: Test Performed by: [id number] Meter #: [id number] Ordering Provider: JYOTI LUND Report Released Date/Time: Jul 31, 2024 01:30 PM Reporting Lab: [address] [id number] Performing Lab: [address] [address] GLUCOSE,BL OOD-poct (STL) 173 mg/dL H 72-99 Jul 31, 2024 09:05 AM [facility] GLUCOSE,BLOOD-poct (STL) Specimen Type: BLOOD Comment: Test Performed by: [id number] Meter #: [id number] Ordering Provider: JYOTI LUND Report Released Date/Time: Jul 31, 2024 09:08 AM Reporting Lab: [place] [id number] [facility] [id number] Performing Lab: [address] [address] GLUCOSE,BL OOD-poct (STL) 148 mg/dL H 72-99 Vital Signs: All taken on the encounter date This section contains inpatient and outpatient Vital Signs collected on the date of the Encounter. Date/Time Temperature Pulse Blood Pressure Respiratory Rate SP02 Pain Height Weight Body Mass Index Source Aug 03, 2024 02:35 PM 97.6 71 178/76 16 0 [facility] Social History: Smoking Status (Most [...] 03:10 PM QUIT TOBACCO >7 YEARS AGO [facility] Tobacco Use History This section includes a history of the smoking, or tobacco-related health factors, that were collected on or before the date of the Encounter. The data comes from the [place] facility where the Encounter took place. Date/Time Smoking Status/Tobacco Use Comment F acility May 20, 2014 09:22 AM QUIT TOBACCO >7 YEARS AGO [facility] Feb 19, 2013 09:01 AM QUIT TOBACCO >7 YEARS AGO [facility] December 20, 2006 08:06 AM QUIT TOBACCO >7 YEARS AGO [facility] Jun 12, 2006 09:00 AM CURRENT NON-TOBACC O USER-HX OF USE [facility] Jun 12, 2006 09:00 AM TOBACCO TERMINATION STAGE [facility] December 07, 2005 11:12 AM CURRENT NON-TOBACC O USER-HX OF USE [facility] December 07, 2005 11:12 AM TOBACCO TERMINATION STAGE [facility] Mar 21, 2005 01:46 PM CURRENT NON-TOBACC O USER-HX OF USE [facility] Mar 21, 2005 01:46 PM TOBACCO TERMINATION STAGE [facility] Mar 03, 2004 09:58 AM CURRENT NON-TOBACC O USER-HX OF USE [facility] Mar 03, 2004 09:58 AM TOBACCO TERMINATION STAGE [facility] Apr 21, 2003 09:25 AM CURRENT NON-TOBACC O USER-HX OF USE QUIT [address] [place] [address] Apr 21, 2003 09:25 AM CURRENT NON-TOBACC O USER-RECENTLY QUIT quit [address] [place] [address] Apr 21, 2003 09:25 AM TOBACCO USE quit [address] [place] [address] Nov 07, 2002 09:14 AM CURRENT NON-TOBACC O USER-RECENTLY QUIT quit [address] [place] [address] Nov 07, 2002 09:14 AM TOBACCO USE quit [address] [place] [address] Nov 08, 2001 08:09 AM CURRENT NON-TOBACC O USER-HX OF USE quit 20 yrs. ago [facility] Advance Directives: All historical and current [...] 2021 ADVANCE DIRECTIVE DISCUSSION Jaqueline [facility] Jun 12, 2014 ADVANCE DIRECTIVE DISCUSSION GÓMEZ ESPINAL [facility] Radiology Reports: +/- 30 days of [...] the Encounter. The data comes from all [place] treatment facilities. Date/Time Radiology Report Provider Source Jul 30, 2024 12:46 PM NM LYMPH NODE IMAG ING- P: [id number] M Exm Date: JUL 30, 2024@12:46 Req Phys: DIAMOND SCRUGGS Loc: [facility] EV[facility]URSING AM (Req Img Loc: [facility] Service: Unknown [address] [address] (Case [id number] COMPLETE) NM LYMPHATIC/LYMPH NODE IMAGING (NM Detailed) CPT:52210 Reason for Study: Left Arm Malignant Melanoma (Case 753 COMPLETE) TC99M TILMANOCEPT (LYMPHOSEEK) (NM Detailed) CPT:A9520 (Case 755 COMPLETE) NON-HEU TC-99M ADD-ON PER STUDY D(NM Detailed) CPT:Q9969 Clinical History: Enter History and Reason for Exam: Wide Local Excision of Left Arm Melanoma with Mills Lymph Node Biopsy scheduled on 07/31/[address] Jyoti Lund. Patient needs lymphoscintigraphy on 07/30/2024 Enter date AND time of surgery: 07/31/2024 1030 PATIENT HEIGHT: 64 in [162.6 cm] (03/19/2019 14:34) PATIENT WEIGHT: 172 lb [78.02 kg] (04/25/2024 15:04) Report Status: Verified Date Reported: JUL 30, 2024 Date Verified: JUL 30, 2024 Dust Collector Ore Crushing E-Sig:/ES/Jonel Marques MD,PhD Report: Patient Name: Lisa Rachel SENTINEL LYMPHOSCINTIGRAPHY HISTORY: 84 year old patient recently diagnosed with malignant melanoma. TECHNIQUE: Following sterile technique, equal amounts of Tc-99m lymphoseek were injected subdermally around the site of the left upper extremity in 4 separate injections. Radiopharmaceutical: Tc-99mlymphoseek : 0.1 uCi. FINDINGS: Injection was done around the left arm Planar images: After masking the area of injection with a lead shield, and sentinel lymph node was identified on the left axillary. The area of uptake was marked on the skin surface for surgical localization on the anterior posterior projection. Impression: Successful localization and marking of the sentinel lymph node left axillary gaye station. Dictated by Anabella Paiz MD (Nuclear Medicine resident). I, Jonel Marques, have reviewed the images and report and concur with these findings. Primary Interpreting Staff: Jonel Marques MD,PhD, Nuclear Medicine Physician (Rj) Primary Interpreting Resident: ANABELLA PAIZ, Resident Physician /JONEL MAO [facility] Pathology Reports: +/- 30 days of [...] the Encounter. The data comes from all [place] treatment facilities. Date/Time Pathology Report Provider Source Aug 06, 2024 10:34 AM LR SURGICAL PATHOL OGY REPORT: LOCAL TITLE: LR SURGICAL PATHOLOGY REPORT STANDARD TITLE: PATHOLOGY PROCEDURE NOTE DATE OF NOTE: AUG 06, 2024@10:34:32 ENTRY DATE: AUG 06, 2024@10:34:32 AUTHOR: ROMAN AVILA EXP COSIGNER: URGENCY: STATUS: COMPLETED $APHDR - [...] - - PATHOLOGY REPORT Accession No. SP [id number] - - - - - - - - - - - - - - - - - - - - - - - - - - - - - - - - - - - - - - - - $TEXT Submitted by: KWAKU HOANG Date obtained: Jul 31, 2024 15:04 - - - - - - - - - - - - - - - - - - - - - - - - - - - - - - - - - - - - - - - - Specimen (Received Jul 31, 2024 15:06): A. LEFT AXILLARY SENTINEL LYMPH NODE B. LEFT FOREARM MALANOMA (STITCH SUPERIOR) - - - - - - - - - - - - - - - - - - - - - - - - - - - - - - - - - - - - - - - - BRIEF CLINICAL HISTORY: - - - - - - - - - - - - - - - - - - - - - - - - - - - - - - - - - - - - - - - - PREOPERATIVE DIAGNOSIS: Malignant melanoma - - - - - - - - - - - - - - - - - - - - - - - - - - - - - - - - - - - - - - - - OPERATIVE FINDINGS: - - - - - - - - - - - - - - - - - - - - - - - - - - - - - - - - - - - - - - - - POSTOPERATIVE DIAGNOSIS: Surgeon/physician: JYOTI LUND MD =-=-=-=-=-=-=-=-=-=-=-=-= -=-=-=-=-=-=-=-=-=-=-=-=- =-=-=-=-=-=-=-=-=-=-=-=-= -=-= - - - - - - - - - - - - - - - - - - - - - - - - - - - - - - - - - - - - - - - - PATHOLOGY REPORT Accession No. SP [id number] - - - - - - - - - - - - - - - - - - - - - - - - - - - - - - - - - - - - - - - - GROSS DESCRIPTION: (Sallie, 07-31-2024) The specimens are received in formalin, in two containers, labeled with the patient's name and full SSN. A. Received in a container, additionally labeled left axillary sentinel lymph node , consists of one pink yellow tissue fragment that measures 2.0 x 1.7 x 0.8 cm. One ovoid shaped potential lymph node is identified and measures 1.3 x 1.0 x 0.6 cm. It is submitted entirely in cassette A1 (potential node bisected) and A2 (remaining tissue). B. Received in a container, additionally labeled left forearm melanoma stitch superior , consists of a disc shaped dark osuna skin excision tissue fragment that measures 4.0 x 4.0 x 0.5 cm. The suture indicates the superior margin. The 3 0'clock side is inked blue, the 9 o'clock side red and the deep margin black. The specimen is serially sectioned and submitted entirely from superior to inferior in cassettes B1 (superior margin), B2 (inferior margin) and B3-B8 (remaining skin tissue). MICROSCOPIC EXAM: (Sallie) Microscopic examination of the sections submitted from left axillary sentinel lymph node shows one reactive lymph node with fatty changes. IHC for SOX10 is applied in triplicate and shows negative staining. Serial levels are examined. Microscopic examination of the sections submitted from left forearm melanoma shows no evidence of residual tumor. Prior biopsy site changes displaying fibrosis, chronic inflammation and foreign body giant cell reaction are noted. IHC for [place]-1 is applied on block B3, B4, B5 and B6 and shows no evidence of confluent lentiginous melanocytic proliferation or Pagetoid spread. A positive control for each antibody has been reviewed and accepted. DIAGNOSIS: LYMPH NODE, LEFT AXILLARY, SENTINEL, EXCISION: REACTIVE LYMPH NODE (0/1) SKIN, LEFT FOREARM, STITCH SUPERIOR, EXCISION: NO EVIDENCE OF RESIDUAL MELANOMA PRIOR BIOPSY SITE CHANGES ALL MARGINS FREE OF TUMOR /es/ NECAT Tyrone AVILA Pathologist Signed Aug 06, 2024@10:34 Performing Laboratory: Surgical Pathology Report Performed By: [facility], [facility]# [id number] [address] [place] [id number] $FTR - - - - - - - - - - - - - - - - - - - - - - - - - - - - - - - - - - - - - - - - (End of report) ROMAN AVILA [facility] Date Aug 06, 2024 - - - - - - - - - - - - - - - - - - - - - - - - - - - - - - - - - - - - - - - - VAUGHN ZHENG STANDARD FORM 515 ID:[id number] SEX:M :1940 AGE: 84 LOC:APFEE PCP: Melania Kaiser MD /yesenia/ ROMAN AVILA Pathologist Signed: 08/06/2024 10:34 ROMAN AVILA [facility] Encounter Notes: All associated encounter notes This section contains the clinical notes associated to the Encounter. Date/Time Encounter Note(s) Provider Source Aug 03, 2024 02:38 PM PHYSICIAN EMERGENC Y DEPT NOTE: LOCAL TITLE: EMERGENCY DEPARTMENT [facility] STANDARD TITLE: PHYSICIAN EMERGENCY DEPT NOTE DATE OF NOTE: AUG 03, 2024@14:38 ENTRY DATE: AUG 03, 2024@14:39:01 AUTHOR: KETTY PRADO COSIGNER: URGENCY: STATUS: COMPLETED TRIAGE CHIEF COMPLAINT: Surgical wound evaluation HPI: Patient is an 84-year-old male with a history of hypertension, BPH, hypothyroidism, diabetes, presents for evaluation of surgical wound. He underwent wide local excision of left forearm melanoma per general surgery on July 31, and concomitant split-thickness skin grafting from left thigh to left forearm wound per plastic surgery. He reports that overall he has been doing well though over the past few days has noticed fluid collecting under the bandage on his left thigh harvest site. He was concerned so came for evaluation. He denies any pain, denies any systemic symptoms REVIEW OF SYSTEMS: See HPI for further details. All 10 systems reviewed and otherwise negative unless otherwise detailed herein. PAST MEDICAL HISTORY: 1) Benign essential hypertension (SNOMED CT [id number]) 2) Dyspepsia 3) Diverticulosis Colon 4) Hemorrhoids 5) Allergic Rhinitis 6) Skin Cancer 7) Benign prostatic hyperplasia 8) B12 deficiency monitoring status (SNOMED CT 985967030) 9) Incisional hernia without mention of obstruction or gangrene (ICD-9-CM 553.21) 10) Hypothyroidism 11) Impaired glucose tolerance 12) Diabetes mellitus CURRENT MEDICATIONS: Active Outpatient Medications (including Supplies): Active Outpatient Medications Status 1) ACETAMINOPHEN 325MG TAB TAKE TWO TABLETS BY MOUTH FOUR TIMES ACTIVE A DAY CAUTION: DO NOT EXCEED 4000MG PER DAY ACETAMINOPHEN (APAP) FROM ALL MEDS. Indication: FOR PAIN 2) CEPHALEXIN 500MG CAP TAKE ONE CAPSULE BY MOUTH THREE TIMES A ACTIVE DAY TAKE WITH FOOD. TAKE UNTIL GONE UNLESS OTHERWISE DIRECTED. Indication: POSTOPERATIVE PROPHYLAXIS 3) OXYCODONE HCL 5MG TAB TAKE ONE TABLET BY MOUTH EVERY 6 HOURS ACTIVE NEEDED MAY CAUSE CONSTIPATION Indication: FOR POST-OPERATIVE PAIN Active Non-VA Medications Status 1) Non-VA AMLODIPINE BESYLATE 5MG TAB 5MG BY MOUTH ONCE A DAY ACTIVE 2) Non-VA CHOLECALCIF 50MCG (D3-2,000UNIT) TAB 2000UNIT BY ACTIVE MOUTH ONCE A DAY 3) Non-VA CYANOCOBALAMIN 1000MCG TAB 1000MCG BY MOUTH ONCE A ACTIVE DAY 4) Non-VA EMPAGLIFLOZIN 5MG/METFORMIN 1000MG TAB 1 TABLET BY ACTIVE MOUTH TWICE A DAY Indication: FOR DIABETES 5) Non-VA LEVOTHYROXINE NA (SYNTHROID) 75MCG TAB 75MCG BY MOUTH ACTIVE EVERY MORNING BEFORE A MEAL 6) Non-VA LISINOPRIL 40MG TAB 40MG BY MOUTH ONCE A DAY ACTIVE 7) Non-VA LORATADINE 10MG TAB 10MG BY MOUTH ONCE A DAY ACTIVE 8) Non-VA METRONIDAZOLE 0.75% TOP GEL SPARINGLY TO AFFECTED ACTIVE AREA(S) TWICE A DAY 9) Non-VA MULTIVITAMIN CAP/TAB 1 TABLET BY MOUTH ONCE A DAY ACTIVE 10) Non-VA OMEPRAZOLE 20MG EC CAP 40MG BY MOUTH EVERY MORNING ACTIVE 11) Non-VA PHENYLEPHRINE HCL 0.25% RTL SUPP 1 SUPPOSITORY ACTIVE RECTALLY TWICE DAILY NEEDED 12) Non-VA PSYLLIUM POWDER,ORAL BY MOUTH ACTIVE 15 Total Medications 1) ALBUTEROL (NEB) SOLN,INHL NEB PRN 2.5MG/3ML 2) IPRATROPIUM 0.02% (NEB) SOLN,INHL NEB PRN 0.5MG/2.5ML 3) OXYCODONE (IMMEDIATE RELEASE) UD TAB PO Q6H PRN 5MG 4) ACETAMINOPHEN TAB PO Q6H PRN 650MG. SURGICAL HISTORY: not pertinent FAMILY HISTORY: not pertinent SOCIAL HISTORY: Social History Main Topics: Smoking status: No data available for: Current Tobacco User Alcohol Use: not endorsed ____ Illicit Drug Use: not endorsed Sexual Activity: Other Topics of Concern: Child bearing age: N/A LMP: N/A possible: N/A ALLERGIES: Review of patient's allergies indicates: Patient has answered NKA PHYSICAL EXAM: VITAL SIGNS: 178/76 (08/03/2024 14:35) 71 (08/03/2024 14:35) 99% (07/31/2024 14:05) 97.6 F [36.4 C] (08/03/2024 14:35) 16 (08/03/2024 14:35) Measurement DT WEIGHT LB(KG)[BMI] 07/31/2024 09:15 169.5(76.88)[30*] 07/03/2024 10:26 168.9(76.61)[30*] 04/25/2024 15:04 172(78.02)[30*] Measurement DT PAIN 08/03/2024 14:35 0 CONSTITUTIONAL: No acute distress, Non-toxic appearance, pleasant and conversant HENT: airway patent, normal voice EYES: Conj pink, sclera clear NECK: Grossly normal range of motion PULMONARY/CHEST: Normal effort BACK: : RECTAL: EXTREMITIES: Grossly Normal range of motion On examination of the left thigh the skin graft harvest site appears clean and noninfected. There is no cutaneous erythema or evidence of cellulitis. There is moderate fluid collection contained underneath the bandage which appears to be serosanguineous in nature. No debris or purulence. NEUROLOGIC: Alert & oriented/reactive, Grossly normal motor function, Normal gait observed, no ataxia, No focal deficits appreciated on cursory screening exam SKIN: Warm, Dry, No erythema, No appreciable significant rash LABS: RADIOLOGY: ECG IMPRESSION: ED COURSE & MEDICAL DECISION MAKING: Discussed plan to consult plastics for this postop case. 1555 -discussed case with plastic surgery, and described exam in detail. He reports this is expected and nothing further to do. Patient has follow-up appointment on Monday and can be seen at that time. Continue Tiago wrap as advised. Updated patient and and discussed RT ER precautions. They are comfortable with this plan. Nursing notes, medications, vital signs, allergies and pertinent labs & imaging studies reviewed (see chart for details) with lab results reviewed with patient and family/caregivers at bedside and radiology results reviewed with patient and any family/caregivers at bedside. Stable, alert, nontoxic, nonfocal with clinically apparent postop wound evaluation RAG BALER SERVICE/TIME: MEDICATIONS GIVEN IN ED: [ ] YES [X] NO DIFFERENTIAL DIAGNOSES CONSIDERED: Hemorrhage, postop drainage, infection, cellulitis, other DECISION to ADMIT / DISCHARGE TIME: 1600 DISPOSITION CONDITION:[X] Improved [ ] Unchanged [ ] Deteriorated CLINICAL IMPRESSION: 1 -postop wound evaluation DISCHARGE INSTRUCTIONS AND PATIENT-DIRECTED FOLLOW-UP RECOMMENDATIONS: DIET: regular ACTIVITY: ad mona NEW MEDS: None ADDITIONAL INSTRUCTIONS: 1) follow-up Monday as planned MEDICATION RECONCILIATION: CONTINUE ALL PRESCRIBED MEDICATIONS DIRECTED FOLLOW-UP WITH PRIMARY PAPER STACKER/SPECIALIST: routine in 1-2 weeks if not improving, sooner if worse RETURN TO EMERGENCY: if pain develops, redness develops, white discharge, or any worries or concerns ADDITIONAL SIGNATURE PCP: [ ] YES [ ] NO [ ] not listed Active Outpatient Medications (including Supplies): Active Outpatient Medications Status 1) ACETAMINOPHEN 325MG TAB TAKE TWO TABLETS BY MOUTH FOUR TIMES ACTIVE A DAY CAUTION: DO NOT EXCEED 4000MG PER DAY ACETAMINOPHEN (APAP) FROM ALL MEDS. Indication: FOR PAIN 2) CEPHALEXIN 500MG CAP TAKE ONE CAPSULE BY MOUTH THREE TIMES A ACTIVE DAY TAKE WITH FOOD. TAKE UNTIL GONE UNLESS OTHERWISE DIRECTED. Indication: POSTOPERATIVE PROPHYLAXIS 3) OXYCODONE HCL 5MG TAB TAKE ONE TABLET BY MOUTH EVERY 6 HOURS ACTIVE NEEDED MAY CAUSE CONSTIPATION Indication: FOR POST-OPERATIVE PAIN Active Non-VA Medications Status 1) Non-VA AMLODIPINE BESYLATE 5MG TAB 5MG BY MOUTH ONCE A DAY ACTIVE 2) Non-VA CHOLECALCIF 50MCG (D3-2,000UNIT) TAB 2000UNIT BY ACTIVE MOUTH ONCE A DAY 3) Non-VA CYANOCOBALAMIN 1000MCG TAB 1000MCG BY MOUTH ONCE A ACTIVE DAY 4) Non-VA EMPAGLIFLOZIN 5MG/METFORMIN 1000MG TAB 1 TABLET BY ACTIVE MOUTH TWICE A DAY Indication: FOR DIABETES 5) Non-VA LEVOTHYROXINE NA (SYNTHROID) 75MCG TAB 75MCG BY MOUTH ACTIVE EVERY MORNING BEFORE A MEAL 6) Non-VA LISINOPRIL 40MG TAB 40MG BY MOUTH ONCE A DAY ACTIVE 7) Non-VA LORATADINE 10MG TAB 10MG BY MOUTH ONCE A DAY ACTIVE 8) Non-VA METRONIDAZOLE 0.75% TOP GEL SPARINGLY TO AFFECTED ACTIVE AREA(S) TWICE A DAY 9) Non-VA MULTIVITAMIN CAP/TAB 1 TABLET BY MOUTH ONCE A DAY ACTIVE 10) Non-VA OMEPRAZOLE 20MG EC CAP 40MG BY MOUTH EVERY MORNING ACTIVE 11) Non-VA PHENYLEPHRINE HCL 0.25% RTL SUPP 1 SUPPOSITORY ACTIVE RECTALLY TWICE DAILY NEEDED 12) Non-VA PSYLLIUM POWDER,ORAL BY MOUTH ACTIVE 15 Total Medications /es/ KETTY PRADO MD STAFF PHYSICIAN Signed: 08/03/2024 16:03 KETTY PRADO [facility]
--- OUTSIDE RECORDS SUMMARY | 2024-10-22 12:14 | XMS_ITS | Encounter Summary ---
Author Name [facility] Organization [facility] Address [address] [place] [address] Care Team Providers Care Sales Contractor Name Role Phone HUONG ROWELL Primary Care [...] COURTNEY PLUS 1 Jul 24, 2015 [id number] [phone] PAYAM ZHENG PATIENT ANTHEM [employer] [place] FEP PREFERRED PROVIDER ORGANIZAT ION (PPO) FEP STAND COURTNEY PLUS 1 Jul 24, 2015 106 [id number] [phone] PAYAM ZHENG [facility] PATIENT AN[place] FEP PREFERRED PROVIDER ORGANIZAT ION (PPO) FEP STAND COURTNEY PLUS 1 Jul 24, 2015 106 [id number] [phone] PAYAM ZHENG PATIENT [employer] FEP RETIREE [id number] Jan 22, 2004 [id number] PAYAM ZHENG PATIENT [place] FEP PREFERRED PROVIDER ORGANIZAT ION (PPO) FEP STAND COURTNEY PLUS 1 Jul 24, 2015 106 [id number] [phone] PAYAM ZHENG PATIENT [place] FEP PRESCRIPT ION [id number] Jan 22, 2004 [id number] [phone] PAYAM ZHENG PATIENT MEDICARE (WNR) MEDICARE (M) PART A Jan 22, 2004 PART A [id number] PAYAM ZHENG PATIENT MEDICARE (WNR) MEDICARE (M) PART B Jan 22, 2004 PART B [id number] PAYAM ZHENG PATIENT MEDICARE (WNR) MEDICARE (M) PART A Jan 22, 2004 PART A [id number] PAYAM ZHENG PATIENT MEDICARE (WNR) MEDICARE (M) PART B Jan 22, 2004 PART B [id number] PAYAM ZHENG PATIENT Selected Encounter This section includes the information on record at MD for the Encounter. Date/Time Encounter Type Encounter Description Reason Provider Source Oct 21, 2024 01:30 PM HEARING AID SUP/ACCESS/DEV AUDIOLOGY ICD-10-CM Z46.1 Encounter for fitting and adjustment of hearing aid SHANELL CASTELAN [facility] Encounter Template Text not used by MD Assessments - Encounter Diagnoses This section includes the primary and secondary diagnoses documented for the Encounter. Date/Time Primary/Secondary Diagnosis Diagnosis Name Provider Source Oct 21, 2024 04:00 PM PRIMARY Encounter for fitting and adjustment of hearing aid SHANELL CASTELAN [facility] Oct 21, 2024 04:00 PM SECONDARY Sensorineural hearing loss, bilateral SHANELL CASTELAN [facility] Plan of Treatment: Future Appointments (+ 6 months) and Future Tests (+/- 45 days) The Plan of Treatment section includes future care activities for the patient from all MD treatmentfacilities. This section includes future appointments and future orders which are active, pending or scheduled. Future Appointments This section includes appointments that were scheduled to occur 6 months from the date of the Encounter, up to a maximum of 20 appointments. The data comes from all [facility] treatment facilities. Appointment Date/Time Appointment Type Appointme nt Facility Name Oct 29, 2024 01:00 PM AMBULATORY - REHAB MEDICIN E [facility] November 25, 2024 10:45 AM AMBULATORY - MEDICINE [facility] November 27, 2024 10:30 AM AMBULATORY - SURGERY [facility] Porsha [facility] November 27, 2024 11:15 AM AMBULATORY - MEDICINE [facility] Active, Pending, and Scheduled Orders This section includes a listing of several types of active, pending, and scheduled orders, including clinic medications orders, diagnostic test orders, procedure orders and consult orders; where the start date of the order is 45 days before the date of the Encounter or 45 days after the date of theEncounter. The data comes from all [facility]. Test Date/Time Test Type Test Details Facility Name Oct 04, 2024 04:10 PM Consult Order OT OUTPATI ENT CONSULT STL Cons Apprentice Plant Attendant's Choice [facility] Lab Results: +/- 30 days of the encounter This section includes the Chemistry and Hematology Lab Results on record with MD for the patient. Radiology Reports and Pathology Reports are provided separately, in subsequent sections. Lab Results This section contains the Chemistry/Hematology Results that were resulted 30 days before or 30 daysafter the date of the Encounter. Date/Time Source Result Type Result - Unit Interpretation Reference Range Comment Oct 02, 2024 12:09 PM [facility] HGA1C Specimen Type: BLOOD No comment entered. Ordering Provider: Mina CORDOVA Report Released Date/Time: Oct 02, 2024 11:59 AM Reporting Lab: [facility] [address] [facility] [address] Performing Lab: [facility] [address] [address] HGA1C 7.0 H 4.0-6.0 Oct 02, 2024 12:09 PM [facility] FERRITIN Specimen Type: SERUM No comment entered. Ordering Provider: Mina CORDOVA Report Released Date/Time: Oct 02, 2024 11:59 AM Reporting Lab: [facility] [address] [address] Performing Lab: [facility] [address] [facility] [address] FERRITIN 37.12 ng/mL 22-275 Oct 02, 2024 12:09 PM [facility] IRON/TIBC PROFILE Specimen Type: SERUM Comment: No hemolysis noted. Ordering Provider: Mina CORDOVA Report Released Date/Time: Oct 02, 2024 11:59 AM Reporting Lab: [address] [address] Performing Lab: [address] [address] TIBC 306 ug/dL 250-450 TRANSFERRIN 245 mg/dL 163-344 IRON SATURATION 19 L 20-50 IRON 59 ug/dL L 65-175 Oct 02, 2024 12:09 PM [facility] MICRAL/CREAT PROFILE (STL) Specimen Type: URINE No comment entered. Ordering Provider: Mina CORDOVA Report Released Date/Time: Oct 02, 2024 11:59 AM Reporting Lab: [facility] [address] [place] [phone] Performing Lab: [address] [address] URINE ALBUMIN (PB-STL) 19.0 mg/L uACR (STL) 53 mg/g H 0-29 CREATININE URINE/OTHERS 35.6 mg/dL L 63-166 Oct 02, 2024 12:09 PM [facility] COMPREHENSIVE METABOLIC PANEL Specimen Type: PLASMA Comment: No hemolysis noted. Ordering Provider: Mina CORDOVA Report Released Date/Time: Oct 02, 2024 11:59 AM Reporting Lab: [facility] [address] [place] [phone] Performing Lab: [address] [address] CREATININE 1.03 mg/dL 0.7-1.3 UREA NITROGEN 16.2 mg/dL 9.0-25.0 GLUCOSE 169 mg/dL H 72-99 SODIUM 138 meq/L 136-145 POTASSIUM 3.6 meq/L 3.5-5 CHLORIDE 105 meq/L 98-107 CARBON DIOXIDE 20 meq/L L 22-31 CALCIUM 8.7 mg/dL 8.4-10.4 PROTEIN 7.3 g/dL 6-8.6 ALBUMIN 4.0 g/dL 3.4-5 TOTAL BILIRUBIN 0.8 mg/dL 0.2-1.2 ALKALINE PHOSPHATASE 101 U/L 40-150 AST/SGOT 25 U/L 5-34 ALT/SGPT 15 U/L 8-40 EGFR (CKD-EPI 2020) 71.2 >60 Oct 02, 2024 12:09 PM [facility] CBC Specimen Type: BLOOD No comment entered. Ordering Provider: Mina CORDOVA Report Released Date/Time: Oct 02, 2024 11:59 AM Reporting Lab: [facility] [address] [address] Performing Lab: [facility] [address] [address] WBC 10.7 10*3/uL 3.6-11.2 RBC 3.97 10*6/uL L 4.10-5.70 HGB 12.0 g/dL L 13.1-16.8 HCT 35.9 L 38.2-48.4 MCV 90.4 fL 80.0-100.0 MCH 30.2 pg 27.0-34.0 MCHC 33.4 g/dL 33.0-36.0 PLT 282 10*3/uL 150-400 MPV 8.7 fL 7.5-11.2 RDW 12.9 11.8-15.1 LYMPHOCYTES, AUTO % 16 MONOCYTES, AUTO % 8 NEUTROPHILS, AUTO % 74 EOSINOPHILS, AUTO % 1 BASOPHILS, AUTO % 0 LYMPHOCYTES, ABSOLUTE 1.67 10*3/uL 0.77-4.50 MONOCYTES, ABSOLUTE 0.84 10*3/uL H 0.19-0.80 NEUTROPHILS, ABSOLUTE 7.92 10*3/uL 2.10-8.00 EOSINOPHILS, ABSOLUTE 0.13 10*3/uL 0.00-0.60 BASOPHILS, ABSOLUTE 0.03 10*3/uL 0.00-0.20 Social History: Smoking Status (Most current) and Tobacco Use (All prior to encounter date) This section includes the most current, and the historical, smoking and tobacco- related health factors from the [facility] where the Encounter took place. Current Smoking Status This section includes the most current smoking, or tobacco-related health factor, from the MD facility where the Encounter took place. Date/Time Current Smoking Status Comment Leonela franco December 07, 2015 03:10 PM QUIT TOBACCO >7 YEARS AGO [facility] Tobacco Use History This section includes a history of the smoking, or tobacco-related health factors, that were collected on or before the date of the Encounter. The data comes from the MD facility where the Encounter took place. Date/Time Smoking Status/Tobacco Use Comment Abisai garcía May 20, 2014 09:22 AM QUIT TOBACCO >7 YEARS AGO [facility] Feb 19, 2013 09:01 AM QUIT TOBACCO >7 YEARS AGO [facility] December 20, 2006 08:06 AM QUIT TOBACCO >7 YEARS AGO [facility] Jun 12, 2006 09:00 AM CURRENT NON-TOBACC O USER-HX OF USE [facility] Jun 12, 2006 09:00 AM TOBACCO TERMINATION STAGE [facility] December 07, 2005 11:12 AM CURRENT NON-TOBACC O USER-HX OF USE [facility] December 07, 2005 11:12 AM TOBACCO TERMINATION STAGE [facility] Mar 21, 2005 01:46 PM CURRENT NON-TOBACC O USER-HX OF USE [facility] Mar 21, 2005 01:46 PM TOBACCO TERMINATION STAGE [facility] Mar 03, 2004 09:58 AM CURRENT NON-TOBACC O USER-HX OF USE [facility] Mar 03, 2004 09:58 AM TOBACCO TERMINATION STAGE [facility] Apr 21, 2003 09:25 AM CURRENT NON-TOBACC O USER-HX OF USE QUIT 1972 [facility] Apr 21, 2003 09:25 AM CURRENT NON-TOBACC O USER-RECENTLY QUIT quit [address] [place] [address] Apr 21, 2003 09:25 AM TOBACCO USE quit 1972 [facility] Nov 07, 2002 09:14 AM CURRENT NON-TOBACC O USER-RECENTLY QUIT quit 1972 [facility] Nov 07, 2002 09:14 AM TOBACCO USE quit 1971 [facility] Nov 08, 2001 08:09 AM CURRENT NON-TOBACC O USER-HX OF USE quit 20 yrs. ago [facility] Advance Directives: All historical and current Section Date Range: From patient's date of to the date document was created. This section includes ALL of a patient's completed or amended MD Advance and Rescinded Directives. The entries below indicate that a directive exists for the patient, but an actual copy is not included with this document. The data comes from all MD facilities. Date Advance Directives Provider Source Mar 26, 2021 ADVANCE DIRECTIVE DISCUSSION Jaqueline LEON [facility] Jun 12, 2014 ADVANCE DIRECTIVE DISCUSSION GÓMEZ ESPINAL [facility] Radiology Reports: +/- 30 days of [...] the Encounter. The data comes from all MD treatment facilities. Date/Time Radiology Report Provider Source Oct 02, 2024 01:47 PM SHOULDER,LEFT,2 OR MORE VIEWS: VAUGHN ZHENG [id number] -[phone] M Ex Date: OCT 02, 2024@13:47 Req Phys: JAY CORDOVA Pat Loc: -[place] PACT STRIPES RES 3 (Req Img Loc: -MAIN RADIOLOGY SUITE Service: [facility], [facility] [address] [place] [address] (Case [id number] COMPLETE) SHOULDER,LEFT,2 OR MORE VIEWS (RAD Detailed) CPT:78981 Proc Modifiers : LEFT Reason for Study: 1month of pain L shoulder Clinical History: Report Status: Verified Date Reported: OCT 04, 2024 Date Verified: OCT 04, 2024 Traffic Counter E-Sig:/ES/Sav Wong MD Report: FINDINGS: No significant bone or joint abnormality is demonstrated. No significant acute finding is seen. Impression: Negative. Primary Interpreting Staff: Sav Wong MD, Radiologist (Traffic Counter) /QMB SAV WONG [facility] Encounter Notes: All associated encounter notes This section contains the clinical notes associated to the Encounter. Date/Time Encounter Note(s) Provider Source Oct 21, 2024 02:08 PM AUDIOLOGY HISTORICAL ARCHEOLOGIST NOTE: LOCAL TITLE: HEARING AIDS STL STANDARD TITLE: AUDIOLOGY HISTORICAL ARCHEOLOGIST NOTE DATE OF NOTE: OCT 21, 2024@14:08 ENTRY DATE: OCT 21, 2024@14:08:48 AUTHOR: SHANELL CASTELAN COSIGNER: URGENCY: STATUS: COMPLETED SUBJECT: Audio PURPOSE OF APPPOINTMENT: Fitting of new hearing aids. was not checked in for appointment until 29 minutes after appt start time. Otoscopy reveals clear ear canals. [x] Provider-initiated visit [x] Family members were not present [x] Conformity eval completed - NAL-NL2 prescriptive targets [x] Rechargeable batteries [x] Experienced user Today, [place] was fit with binaural PHONAK AUDEO I90-R YA in [facility] with 3M skeleton lock cShells with pink FP, clear shell, and removal filament. Programmed as auto, VC, BT for Android and afua. Right SN: [id number] Left SN: [id number] Trial Period: 04/01/25 *RTC used. Devices issued in [place]. Waxguards ordered to 's verified address. The following standardized education was provided and Melrose was able to demonstrate understanding after the education: o Introduction to aids (red=right, blue=left) o Parts of the aid o Brick Loader o Cleaning/maintenance of aids. Wax filters. [place]. o Insertion/removal of aids. o Volume control o Realistic expectations of aids. o Review of the items: soft case, hard case o Review of the paperwork: battery reorder form, instruction manual, IOI survey, clinician name/number, L&D form o Review trial period and warranty o Streaming phone-calls, hands-free calling o Afua control o Bluetooth handout Good fit and retention with excessive head/jaw movements. confirmed physical comfort with devices. Feedback test is good bilaterally. Real-ear measures are within acceptable limits; undertarget 4 kHz soft input bilaterally due to feedback mgmt. confirmed comfort with volume, balance between ears, and clarity. Stressed importance of full-time hearing aid use to facilitate adjustment process. Educated [place] on hearing aid automaticity and reviewed communication strategies. RECOMMENDATIONS: 1. to return completed IOI-GIFFORD survey after 30 days. 2. Full-time hearing aid use to facilitate adjustment to amplification. 3. Contact [facility] [phone] for repairs and/or adjustments as needed. Time for appt: 34 min /yesenia/ Lars Butler, [facility] Staff Sanforizer, Surgery Service Signed: 10/21/2024 16:07 SHANELL CASTELAN [facility]
--- OUTSIDE RECORDS SUMMARY | 2024-10-22 12:14 | XMS_ITS | Encounter Summary ---
Author Name [facility] [place] Address [address] [place] [address] Care Team Providers Care Production Consultant Name Role Phone HUONG ROWELL Primary Care [...] COURTNEY PLUS 1 Jul 24, 2015 106 [id number] [phone] PAYAM ZHENG PATIENT ANTHEM [employer] FEP PREFERRED PROVIDER ORGANIZAT ION (PPO) FEP STAND COURTNEY PLUS 1 Jul 24, 2015 106 [id number] [phone] PAYAM ZHENG PATIENT ANTHEM [place] F[place] PREFERRED PROVIDER ORGANIZAT ION (PPO) FEP STAND COURTNEY PLUS 1 Jul 24, 2015 106 [id number] [phone] PAYAM ZHENG PATIENT BCBS FEP RETIREE [id number] Jan 22, 2004 105 [id number] [phone] PAYAM ZHENG PATIENT [place] F[place] PREFERRED PROVIDER ORGANIZAT ION (PPO) FEP STAND COURTNEY PLUS 1 Jul 24, 2015 106 [id number] [phone] PAYAM ZHENG PATIENT [place] FEP PRESCRIPT ION [id number] Jan 22, 2004 [id number] PAYAM ZHENG PATIENT MEDICARE (WNR) MEDICARE (M) PART A Jan 22, 2004 PART A [id number] PAYAM ZHENG PATIENT MEDICARE (WNR) MEDICARE (M) PART B Jan 22, 2004 PART B [id number] [phone] PAYAM ZHENG PATIENT MEDICARE (WNR) MEDICARE (M) PART A Jan 22, 2004 PART A [id number] [phone] PAYAM ZHENG PATIENT MEDICARE (WNR) MEDICARE (M) PART B Jan 22, 2004 PART B [id number] PAYAM ZHENG PATIENT Selected Encounter This section includes the information on record at [place] for the Encounter. Date/Time Encounter Type Encounter Description Reason Provider Source Jun 24, 2024 09:50 AM HEARING AID FITTING/CHECKIN G AUDIOLOGY ICD-10-CM H90.3 Sensorineural hearing loss, bilateral SAQIB MONTES Gerardo Encounter Template Text not used by [place] Assessments - Encounter Diagnoses This section includes the primary and secondary diagnoses documented for the Encounter. Date/Time Primary/Secondary Diagnosis Diagnosis Name Provider Source Jun 24, 2024 09:55 AM PRIMARY Sensorineural hearing loss, bilateral STACEY MCKEON [facility] Plan of Treatment: Future Appointments (+ 6 months) and Future Tests (+/- 45 days) The Plan of Treatment section includes future care activities for the patient from all [place] treatmentfacilities. This section includes future appointments and future orders which are active, pending or scheduled. Future Appointments This section includes appointments that were scheduled to occur 6 months from the date of the Encounter, up to a maximum of 20 appointments. The data comes from all [place] treatment facilities. Appointment Date/Time Appointment Type Appointme nt Facility Name Jul 03, 2024 10:20 AM AMBULATORY - SURGERY [facility] Jul 15, 2024 10:00 AM AMBULATORY - SURGERY [facility] Jul 30, 2024 01:00 PM AMBULATORY - NONE [facility] Jul 31, 2024 08:30 AM AMBULATORY - NONE [facility] Aug 03, 2024 02:29 PM AMBULATORY - MEDICINE [facility] Aug 07, 2024 09:20 AM AMBULATORY - SURGERY [facility] Aug 16, 2024 08:15 AM AMBULATORY - SURGERY [facility] Aug 21, 2024 10:00 AM AMBULATORY - SURGERY [facility] Aug 28, 2024 09:00 AM AMBULATORY - MEDICINE [facility] Sep 05, 2024 09:00 AM AMBULATORY - SURGERY [facility] Sep 19, 2024 01:00 PM AMBULATORY - SUR[facility] Sep 27, 2024 11:00 AM AMBULATORY - SURGERY [facility] Oct 02, 2024 11:15 AM AMBULATORY - MEDICINE [facility] Oct 02, 2024 01:00 PM AMBULATORY - SURGERY [facility] Oct 21, 2024 01:30 PM AMBULATORY - SURGERY [facility] Oct 21, 2024 02:30 PM AMBULATORY - SURGERY [facility] Oct 29, 2024 01:00 PM AMBULATORY - REHAB MEDICIN E [facility] November 25, 2024 10:45 AM AMBULATORY - MEDICINE [facility] November 27, 2024 10:30 AM AMBULATORY - SURGERY [facility] November 27, 2024 11:15 AM AMBULATORY - MEDICINE [facility] Active, Pending, and [...] of theEncounter. The data comes from all [place] treatment facilities. Test Date/Time Test Type Test Details Facility Name Jul 31, 2024 01:29 PM Pharmacy - Clinic Medication Order [facility] Lab Results: +/- 30 days of the encounter This section includes the Chemistry and Hematology Lab Results on record with [place] for the patient. Radiology Reports and Pathology Reports are provided separately, in subsequent sections. Lab Results This section contains the Chemistry/Hematology Results that were resulted 30 days before or 30 daysafter the date of the Encounter. Date/Time Source Result Type Result - Unit Interpretation Reference Range Comment Jul 03, 2024 11:25 AM [facility] BASIC METABOLIC PANEL Specimen Type: PLASMA Comment: No hemolysis noted. Ordering Provider: JYOTI SIMMONS Report Released Date/Time: Jun 24, 2024 11:11 AM Reporting Lab: [facility] [address] [place] [phone] Performing Lab: [address] [address] CREATININE 1.17 mg/dL 0.7-1.3 UREA NITROGEN 15.4 mg/dL 9.0-25.0 GLUCOSE 175 mg/dL H 72-99 SODIUM 140 meq/L 136-145 POTASSIUM 4.3 meq/L 3.5-5 CHLORIDE 106 meq/L 98-107 CARBON DIOXIDE 25 meq/L 22-31 CALCIUM 9.0 mg/dL 8.4-10.4 EGFR (CKD-EPI 2020) 61.1 >60 Jul 03, 2024 11:25 AM [facility] CBC Specimen Type: BLOOD No comment entered. Ordering Provider: JYOTI SIMMONS Report Released Date/Time: Jun 24, 2024 11:11 AM Reporting Lab: [facility] [address] [place] [phone] Performing Lab: [address] [address] WBC 8.1 10*3/uL 3.6-11.2 RBC 3.72 10*6/uL [...] and tobacco- related health factors from the [place] facility where the Encounter took place. Current Smoking Status This section includes the most current smoking, or tobacco-related health factor, from the [place] facility where the Encounter took place. Date/Time Current Smoking Status Comment Leonela franco December 07, 2015 03:10 PM QUIT TOBACCO >7 YEARS AGO [facility] Tobacco Use History This section includes a history of the smoking, or tobacco-related health factors, that were collected on or before the date of the Encounter. The data comes from the [place] facility where the Encounter took place. Date/Time Smoking Status/Tobacco Use Comment F acility May 20, 2014 09:22 AM QUIT TOBACCO >7 YEARS AGO [facility] Feb 19, 2013 09:01 AM QUIT TOBACCO >7 YEARS AGO [facility] December 20, 2006 08:06 AM QUIT TOBACCO >7 YEARS AGO [facility] Jun 12, 2006 09:00 AM CURRENT NON-TOBACC O USER-HX OF USE [facility] Jun 12, 2006 09:00 AM TOBACCO TERMINATION STAGE [facility] December 07, 2005 11:12 AM CURRENT NON-TOBACC O USER-HX OF USE [facility] December 07, 2005 11:12 AM TOBACCO TERMINATION STAGE [facility] Mar 21, 2005 01:46 PM CURRENT NON-TOBACC O USER-HX OF USE [facility] Mar 21, 2005 01:46 PM TOBACCO TERMINATION STAGE [facility] Mar 03, 2004 09:58 AM CURRENT NON-TOBACC O USER-HX OF USE [facility] Mar 03, 2004 09:58 AM TOBACCO TERMINATION [facility] Apr 21, 2003 09:25 AM CURRENT NON-TOBACC O USER-HX OF USE QUIT [address] [place] [address] Apr 21, 2003 09:25 AM CURRENT NON-TOBACC O USER-RECENTLY QUIT quit [address] [place] [address] Apr 21, 2003 09:25 AM TOBACCO USE quit [address] [place] [address] Nov 07, 2002 09:14 AM CURRENT NON-TOBACC O USER-RECENTLY QUIT quit [address] [place] [address] Nov 07, 2002 09:14 AM TOBACCO USE quit [address] [place] [address] Nov 08, 2001 08:09 AM CURRENT NON-TOBACC O USER-HX OF USE quit 20 yrs. ago [facility] Advance Directives: All historical and current Section Date Range: From patient's date of to the date document was created. This section includes ALL of a patient's completed or amended [place] Advance and Rescinded Directives. The entries below indicate that a directive exists for the patient, but an actual copy is not included with this document. The data comes from all [facility]. Date Advance Directives Provider Source Mar 26, 2021 ADVANCE DIRECTIVE DISCUSSION Jaqueline LENO [facility] Jun 12, 2014 ADVANCE DIRECTIVE DISCUSSION GÓMEZ ESPINAL [facility] Radiology Reports: +/- 30 days of [...] the Encounter. The data comes from all [facility] facilities. Date/Time Radiology Report Provider Source Jul 03, 2024 10:59 AM CHEST X-RAY, 2 VIE WS: VAUGHN ZHENG [id number] -1940 M Exm Date: JUL 03, 2024@10:59 Req Phys: DIAMOND SCRUGGS Loc: -GEN SURG I CLINIC (Req'g Lo Img Loc: -MAIN RADIOLOGY SUITE Service: Unknown [facility], [facility] [address] [place] [address] (Case [id number] COMPLETE) CHEST X-RAY, 2 VIEWS (RAD Detailed) CPT:85995 Reason for Study: Pre Op Clinical History: Report Status: Verified Date Reported: JUL 04, 2024 Date Verified: JUL 04, 2024 Under Trimmer E-Sig:/ES/KATY MCNEIL MD Report: Case #[id number]. Chest examination. COMPARISON: 05/25/2023. Finding: PA and lateral views of the chest examination shows no evidence of cardiomegaly. Tortuous aorta is seen. No evidence of pulmonary vascular congestion, consolidation or mass. No evidence of pleural effusion or pneumothorax. Impression: No evidence of pulmonary consolidation, mass or lymphadenopathy. Primary Interpreting Staff: KATY MCNEIL MD, Staff Physician - Radiologist (Under Trimmer) /KATY GONZALEZ [facility] Pathology Reports: +/- 30 [...] the Encounter. The data comes from all [facility] facilities. Date/Time Pathology Report Provider Source Jun [...] crust scale. The cells stain positive for [place]-1/Melan-A and SOX10 while they are negative for [...] Performing Laboratory: Surgical Pathology Report Performed By: [facility], [facility]# [id number] [address] [place] [phone] $FTR - - - - - - [...] - - VAUGHN ZHENG STANDARD FORM 515 ID:[id number] SEX:M :1940 AGE: 84 LOC:DERMCON PCP: Melania Kaiser MD /yesenia/ BERNIE HOUSTON MD DERMATOLOGY & DERMATOPATHOLOGY Signed: 06/07/2024 12:[address] [facility] Encounter Notes: All associated encounter notes This section contains the clinical notes associated to the Encounter. Date/Time Encounter Note(s) Provider Source Jun 24, 2024 09:50 AM AUDIOLOGY WIDE AREA NETWORK ENGINEER NOTE: LOCAL TITLE: HEARING AIDS STL STANDARD TITLE: AUDIOLOGY WIDE AREA NETWORK ENGINEER NOTE DATE OF NOTE: JUN 24, 2024@09:50 ENTRY DATE: JUN 24, 2024@09:50:10 AUTHOR: SAQIB MONTES EXP COSIGNER: URGENCY: STATUS: COMPLETED SUBJECT: audio HEARING AIDS STL Has ADDENDA HEARING AID CHECK: dropped off the following [place] issued aid(s): 06/25/20 SONOVA PHONAK AUDEO P90-RT YA R [id number] 06/25/20 SONOVA PHONAK AUDEO P90-RT YA L [id number] PHONE: [phone] REPORTED PROBLEM: left aid weak, update programming. REPAIR ACTIONS: Listening check revealed aids were in good condition. Filters were removed and replaced. Justino ports were brushed. Listening check was good. Aids connected to software. Update performed. Hearing aids updated to 06/19/2024 audiogram. Called pt and notified of repair actions. ETA will be 2-3 business days via [place] [employer]. Kendrick expressed agreement with plan. PLAN [x] Hearing device(s) mail to Kendrick per request. VERIFIED ADDRESS: [address] [place] [phone] Of note, pt has Jul 15 HAF appt sched. Completed by Angel Wilkins, doctoral audiology resident. The information above has been reviewed by this provider. I am in agreement with the treatment plan as outlined. /yesenia/ Lars LEIVA Staff School Aide, Surgery Service Signed: 06/24/2024 10:04 06/24/2024 ADDENDUM STATUS: COMPLETED [id number] /yesenia/ Lars LEIVA Staff School Aide, Surgery Service Signed: 06/24/2024 11:[address] [facility]
--- OUTSIDE RECORDS SUMMARY | 2024-10-22 12:14 | XMS_ITS | Encounter Summary ---
Author Name [facility] [place] Address [address] [place] [address] Care Team Providers Care Disaster Director Name Role Phone SORIN, HUONG Primary Care Provider JANKI Miller Unavailable Unavailable [...] COURTNEY PLUS 1 Jul 24, 2015 106 [id number] [phone] PAYAM ZHENG PATIENT [place] F[place] PREFERRED PROVIDER ORGANIZAT ION (PPO) FEP STAND COURTNEY PLUS 1 Jul 24, 2015 106 [id number] [phone] PAYAM ZHENG PATIENT ANTHE[place] PREFERRED PROVIDER ORGANIZAT ION (PPO) FEP STAND COURTNEY PLUS 1 Jul 24, 2015 106 [id number] [phone] PAYAM ZHENG PATIENT BCBS FEP RETIREE [id number] Jan 22, 2004 105 [id number] PAYAM ZHENG PATIENT [place] F[place] PREFERRED PROVIDER ORGANIZAT ION (PPO) FEP STAND COURTNEY PLUS 1 Jul 24, 2015 106 [id number] [phone] PAYAM ZHENG PATIENT [place] FEP PRESCRIPT ION [id number] Jan 22, 2004 [id number] PAYAM ZHENG PATIENT MEDICARE (WNR) MEDICARE (M) PART B Jan 22, 2004 PART B [id number] PAYAM ZHENG PATIENT MEDICARE (WNR) MEDICARE (M) PART A Jan 22, 2004 PART A [id number] PAYAM ZHENG PATIENT MEDICARE (WNR) MEDICARE (M) PART A Jan 22, 2004 PART A [id number] PAYAM ZHENG PATIENT MEDICARE (WNR) MEDICARE (M) PART B Jan 22, 2004 PART B [id number] [phone] PAYAM ZHENG PATIENT Selected Encounter This section includes the information on record at [place] for the Encounter. Date/Time Encounter Type Encounter Description Reason Provider Source Aug 28, 2024 09:00 AM OFFICE O/P EST LOW 20 MIN DERMATOLOGY ICD-10-CM L57.0 Actinic keratosis ALEX GARDNER [facility] Encounter Template Text not used by [place] Assessments - Encounter Diagnoses This section includes the primary and secondary diagnoses documented for the Encounter. Date/Time Primary/Secondary Diagnosis Diagnosis Name Provider Source Aug 28, 2024 09:45 AM PRIMARY Actinic keratosis ALEX GARDNER [facility] Aug 28, 2024 09:45 AM SECONDARY Other seborrheic keratosis CRISTINA BAILEY [facility] Aug 28, 2024 09:45 AM SECONDARY Personal history of malignant melanoma of skin ALEX GARDNER [facility] Aug 28, 2024 09:45 AM SECONDARY Personal history of other malignant neoplasm of [facility] Plan of Treatment: Future Appointments [...] 20 appointments. The data comes from all [facility]. Appointment Date/Time Appointment Type Appointme nt Facility Name Sep 05, 2024 09:00 AM AMBULATORY - SURGERY [facility] Sep 19, 2024 01:00 PM AMBULATORY - SURGERY [facility] Sep 27, 2024 11:00 AM AMBULATORY - SURGERY [facility] Oct 02, 2024 11:15 AM AMBULATORY - MEDICINE [facility] Oct 02, 2024 01:00 PM AMBULATORY - SURGERY [facility] Oct 21, 2024 01:30 PM AMBULATORY - SURGERY [facility] Oct 21, 2024 02:30 PM AMBULATORY - SURGERY [facility] Oct 29, 2024 01:00 PM AMBULATORY - REHAB MEDICIN E [facility] November 25, 2024 10:45 AM AMBULATORY - MEDICINE [facility] November 27, 2024 10:30 AM AMBULATORY - SURGERY [facility] November 27, 2024 11:15 AM AMBULATORY - MEDICINE [facility] Active, Pending, and Scheduled Orders This section includes a listing of several types of active, pending, and scheduled orders, including clinic medications orders, diagnostic test orders, procedure orders and consult orders; where the start date of the order is 45 days before the date of the Encounter or 45 days after the date of theEncounter. The data comes from all [facility]. Test Date/Time Test Type Test Details Facility Name Jul 31, 2024 01:29 PM Pharmacy - Clinic Medication Order [facility] Oct 04, 2024 04:10 PM Consult Order OT OUTPATI ENT CONSULT STL Cons Box [facility] Lab Results: +/- 30 days of the encounter This section includes the Chemistry and Hematology Lab Results on record with [place] for the patient. Radiology Reports and Pathology Reports are provided separately, in subsequent sections. Lab Results This section contains the Chemistry/Hematology Results that were resulted 30 days before or 30 daysafter the date of the Encounter. Date/Time Source Result Type Result - Unit Interpretation Reference Range Comment Jul 31, 2024 01:28 PM [facility] GLUCOSE,BLOOD-poct (STL) Specimen Type: BLOOD Comment: Test Performed by: [id number] Meter #: [id number] Ordering Provider: JYOTI LUND Report Released Date/Time: Jul 31, 2024 01:30 PM Reporting Lab: [address] [address] Performing Lab: [address] [address] GLUCOSE,BL OOD-poct (STL) 173 mg/dL H 72-99 Jul 31, 2024 09:05 AM [facility] GLUCOSE,BLOOD-poct (STL) Specimen Type: BLOOD Comment: Test Performed by: [id number] Meter #: [id number] Ordering Provider: JYOTI LUND Report Released Date/Time: Jul 31, 2024 09:08 AM Reporting Lab: [place] [address] [facility] [address] Performing Lab: [address] [address] GLUCOSE,BL OOD-poct (STL) 148 mg/dL H 72-99 Advance Directives: All historical [...] 26, 2021 ADVANCE DIRECTIVE DISCUSSION Jaqueline LEON [facility] Jun 12, 2014 ADVANCE DIRECTIVE DISCUSSION GÓMEZ ESPINAL [facility] Radiology Reports: +/- 30 days of [...] the Encounter. The data comes from all [place] treatment facilities. Date/Time Radiology Report Provider Source Jul 30, 2024 12:46 PM NM LYMPH NODE IMAG ING- P: VAUGHN ZHENG [id number] -1940 M Exm Date: JUL 30, 2024@12:46 Req Phys: DIAMOND SCRUGGS Loc: [facility]-PRE-OP EVAL NURSING AM (Req Img Loc: [facility] Service: Unknown [address] [address] (Case [id number] COMPLETE) NM LYMPHATIC/LYMPH NODE IMAGING (NM Detailed) CPT:41742 Reason for Study: Left Arm Malignant Melanoma (Case 753 COMPLETE) TC99M TILMANOCEPT (LYMPHOSEEK) (NM Detailed) CPT:A9520 (Case 755 COMPLETE) NON-HEU TC-99M ADD-ON PER STUDY D(NM Detailed) CPT:Q9969 Clinical History: Enter History and Reason for Exam: Wide Local Excision of Left Arm Melanoma with [place] Lymph Node Biopsy scheduled on 07/31/[address] Jyoti Lund. Patient needs lymphoscintigraphy on 07/30/2024 Enter date AND time of surgery: 07/31/2024 1030 PATIENT HEIGHT: 64 in [162.6 cm] (03/19/2019 14:34) PATIENT WEIGHT: 172 lb [78.02 kg] (04/25/2024 15:04) Report Status: Verified Date Reported: JUL 30, 2024 Date Verified: JUL 30, 2024 Chief Ii Dispatcher E-Sig:/ES/Jonel Marques MD,PhD Report: Patient Name: Lisa [...] Staff: Jonel Marques MD,PhD, Nuclear Medicine Physician (Chief Ii Dispatcher) Primary Interpreting Resident: ANABELLA PAIZ, Resident Physician /JONEL MAO [facility] Pathology Reports: +/- 30 [...] the Encounter. The data comes from all [place] treatment facilities. Date/Time Pathology Report Provider Source [...] giant cell reaction are noted. IHC for Richards-1 is applied on block B3, B4, B5 [...] CHANGES ALL MARGINS FREE OF TUMOR /es/ ROMAN AVILA Pathologist Signed Aug 06, 2024@10:34 Performing Laboratory: Surgical Pathology Report Per[facility] By: [facility] [address] [place], [place] [address]IA# [id number] [address] [address] $FTR - - - - - - - - - - - - - - - - - - - - - - - - - - - - - - - - - - - - - - - - (End of report) ROMAN AVILA MD [facility] Date Aug 06, 2024 - - - - - - - - - - - - - - - - - - - - - - - - - - - - - - - - - - - - - - - - VAUGHN ZHNEG STANDARD FORM 515 ID:[id number] SEX:M :1940 AGE: 84 LOC:APFEE PCP: Melania Kaiser MD /yesenia/ ROMAN AVILA Pathologist Signed: 08/06/2024 10:34 ROMAN AVILA [facility] Encounter Notes: All associated encounter notes This section contains the clinical notes associated to the Encounter. 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 Notes that he has PRS f/u next week and requests that arm and leg not be unwrapped today as they are difficult to redress. Has not used Efudex on the arms pending healing of left arm. Allergies: Patient has answered NKA ROS: all systems reviewed and were negative except as noted in the HPI OBJECTIVE Physical Examination - Left forearm wrapped today - defers examination - Left thigh wrapped today - defers examination - WHSS left axilla - No axillary or inguinal LAD - Scattered brown well circumscribed macules on trunk/extremities - Scattered brown keratotic stuck on appearing papules on the trunk, b/l upper extremities - Gritty pink papules forearms otherwise: General Appearance: Well Appearing MALE, NAD Mood/Affect: pleasant/appropriate Face: WNL Ears: WNL Nose: WNL Forehead: WNL Scalp, Hair: no scale Neck: WNL Chest: WNL Abd: WNL Back: WNL Upper Extremities: WNL Lower Extremities: WNL Nails/Hair: WNL ASSESSMENT AND PLAN # History spindle cell melanoma, 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 #Hx NMSC NER or new primaries today Photoprotection SPF 30+ Regular MD skin exam Pt phone: RTC 3m /yesenia/ CRISTINA BAILEY MD DERMATOLOGY RESIDENT Signed: 08/28/2024 09:46 /yesenia/ ALEX GARDNER MD Dermatology Attending Physician Cosigned: 08/28/2024 09:58 08/28/2024 ADDENDUM STATUS: COMPLETED Discussed case with resident. Agree with history, physical examination, assessment, and plan. Patient declined to unwrap dressing to examine directly surgical area but is still following with plastics/gen surg. No evidence of new primaries on remainder of exam today. /yesenia/ ALEX GARDNER MD Dermatology Attending Physician Signed: 08/28/2024 09:59 CRISTINA BAILEY [facility]
--- OUTSIDE RECORDS SUMMARY | 2024-10-22 12:14 | XMS_ITS | Encounter Summary ---
Author Name [facility] Organization [facility] Address [address] [place] [address] Care Team Providers Care Shellfish Farming Supervisor Name Role Phone HUONG ROWELL Primary Care [...] COURTNEY PLUS 1 Jul 24, 2015 106 [id number] [phone] PAYAM GONZALEZ PATIENT AN[place] [employer] FEP PREFERRED PROVIDER ORGANIZAT ION (PPO) FEP STAND COURTNEY PLUS 1 Jul 24, 2015 106 [id number] [phone] PAYAM GONZALEZ PATIENT [place] F[place] PREFERRED PROVIDER ORGANIZAT ION (PPO) FEP STAND COURTNEY PLUS 1 Jul 24, 2015 106 [id number] [phone] PAYAM GONZALEZ PATIENT [employer] FEP RETIREE [id number] Jan 22, 2004 105 [id number] [phone] PAYAM GONZALEZ PATIENT [place] F[place] PREFERRED PROVIDER ORGANIZAT ION (PPO) FEP STAND COURTNEY PLUS 1 Jul 24, 2015 106 [id number] [phone] PAYAM GONZALEZ PATIENT [place] FEP PRESCRIPT ION [id number] Jan 22, 2004 [id number] [phone] PAYAM GONZALEZ PATIENT MEDICARE (WNR) MEDICARE (M) PART B Jan 22, 2004 PART B [id number] [phone] PAYAM GONZALEZ PATIENT MEDICARE (WNR) MEDICARE (M) PART A Jan 22, 2004 PART A [id number] PAYAM GONZALEZ PATIENT MEDICARE (WNR) MEDICARE (M) PART A Jan 22, 2004 PART A [id number] PAYAM GONZALEZ PATIENT MEDICARE (WNR) MEDICARE (M) PART B Jan 22, 2004 PART B [id number] PAYAM GONZALEZ PATIENT Selected Encounter This section includes the information on record at [facility] for the Encounter. Date/Time Encounter Type Encounter Description Reason Provider Source Apr 25, 2024 03:00 PM OFFICE O/P EST MOD 30 MIN PRIMARY CARE/MEDICINE ICD-10-CM I10 Essential (primary) hypertension RUDOLPH PANCHAL SE Ger[facility] Encounter Template Text not used by [facility] Assessments - Encounter Diagnoses This section includes the primary and secondary diagnoses documented for the Encounter. 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 This section includes future appointments and future [...] 28, 2024 10:30 AM AMBULATORY - MEDICINE [facility] Jun 04, 2024 10:30 AM AMBULATORY - SURGERY [facility] Jun 19, 2024 09:00 AM AMBULATORY - SURGERY [facility] Jun 21, 2024 10:00 AM AMBULATORY - [facility]ERY [facility] Jul 03, 2024 10:20 AM AMBULATORY - SURGERY [facility] Jul 15, 2024 10:00 AM AMBULATORY - SURGERY [facility] Jul 30, 2024 01:00 PM AMBULATORY - NONE [facility] Jul 31, 2024 08:30 AM AMBULATORY - NONE [facility] Aug 03, 2024 02:29 PM AMBULATORY - MEDICINE [facility] Aug 07, 2024 09:20 AM AMBULATORY - SURGERY [facility] Aug 16, 2024 08:15 AM AMBULATORY - SURGERY [facility] Aug 21, 2024 10:00 AM AMBULATORY - SURGERY [facility] Aug 28, 2024 09:00 AM AMBULATORY - MEDICINE [facility] Sep 05, 2024 09:00 AM AMBULATORY - SURGERY [facility] Sep 19, 2024 01:00 PM AMBULATORY - SURGERY [facility] Sep 27, 2024 11:00 AM AMBULATORY - SURGERY [facility] Oct 02, 2024 11:15 AM AMBULATORY - MEDICINE [facility] Oct 02, 2024 01:00 PM AMBULATORY - SURGERY [facility] Oct 21, 2024 01:30 PM AMBULATORY - SUR[facility]ERY [facility] Oct 21, 2024 02:30 PM AMBULATORY - SUR[facility]ERY [facility] Immunizations: All administered on the encounter date [...] Date/Time Current Smoking Status Comment Leonela ity Apr 27, 2023 03:00 PM VA-TOBACCO NEVER USED [facility] Tobacco Use History This section includes a history of the smoking, or tobacco-related health factors, that were collected on or before the date of the Encounter. The data comes from the [facility] facility where the Encounter took place. Date/Time Smoking Status/Tobacco Use Comment F acility Mar 11, 2022 10:30 AM VA-TOBACCO NEVER USED [facility] Mar 26, 2021 03:00 PM VA-TOBACCO FORMER USER [facility] Mar 26, 2021 03:00 PM VA-TOBACCO QUIT 15 YRS OR MORE [facility] Oct 16, 2019 10:22 AM VA-TOBACCO NEVER USED [facility] Nov 13, 2017 02:35 PM VA-TOBACCO FORMER USER [facility] Nov 13, 2017 02:35 PM VA-TOBACCO QUIT 15 YRS OR MORE [facility] Oct 24, 2017 01:47 PM QUIT TOBACCO >7 YEARS AGO [facility] Advance Directives: All historical and current Section Date Range: From patient's date of to the date document was created. This section includes ALL of a patient's completed or amended [facility] Advance and Rescinded Directives. The entries below indicate that a directive exists for the patient, but an actual copy is not included with this document. The data comes from all [facility]. Date Advance Directives Provider Source Mar 26, 2021 ADVANCE DIRECTIVE DISCUSSION Jaqueline LEON [facility] Jun 12, 2014 ADVANCE DIRECTIVE DISCUSSION GÓMEZ ESPINAL [facility] Encounter Notes: All associated encounter notes This section contains the clinical notes associated to the Encounter. Date/Time Encounter Note(s) Provider Source Apr 25, 2024 10:05 PM PRIMARY CARE NOTE: LOCAL TITLE: PRIMARY CARE PROVIDER ESTABLISHED VISIT ST STANDARD TITLE: PRIMARY CARE NOTE DATE OF [...] to see our dermatologists here at the [facility]. He has a new skin lesion on his L arm. ROS: Negative 10 point ROS except as described above in HPI. Past History: 1) Benign essential hypertension (SNOMED CT 3926695) 2) Dyspepsia 3) Diverticulosis Colon 4) Hemorrhoids 5) Allergic Rhinitis 6) Skin Cancer 7) Benign prostatic hyperplasia 8) B12 deficiency monitoring status (SNOMED CT 826706120) 9) Incisional hernia without mention of obstruction [...] STAFF PHYSICIAN INTERNAL MEDICINE Signed: 04/29/2024 13:10 KRISTINA PANCHAL [facility] Apr 25, 2024 03:46 PM PHYSICIAN LETTERS: LOCAL TITLE: TEST RESULT GENERAL LETTER ST[facility] STANDARD TITLE: PHYSICIAN LETTERS DATE OF NOTE: APR 25, 2024@15:46 ENTRY DATE: APR 25, 2024@15:46:42 AUTHOR: KRISTINA PANCHAL EXP COSIGNER: URGENCY: STATUS: COMPLETED [address] [address] APR 25, 2024 To Whom It May Concern, Mr. Vaughn Gonzalez had his seasonal influenza administered at the [facility] clinic[facility] on 04/25/24. Thank you. Sincerely, KRISTINA PANCHAL MD STAFF PHYSICIAN INTERNAL MEDICINE [facility] Apr 25, 2024 03:06 PM NURSING NOTE: LOCAL TITLE: V15 PACT FACE TO FACE NOTE STL STANDARD TITLE: NURSING NOTE DATE OF NOTE: APR 25, 2024@15:06 ENTRY DATE: APR 25, 2024@15:06:22 AUTHOR: KATTY LOO EXP COSIGNER: URGENCY: STATUS: COMPLETED V15 PACT [...] (04/25/2024 15:04) Wt: 172 lb [78.02 kg] (04/25/2024 15:04) Ht: 64 in [162.6 cm] (03/19/2019 14:34) BMI: 29.6 POX: 97% (04/25/2024 15:04) Would you like to discuss any personal problem, family problem, alcohol use, drug use, or a mental or emotional illness? No My [facility] ([facility]), please select appointment type: Face to face: Yes- Done Contact provided Primary Care phone number and encouraged to call if any questions or concerns. Review that after hours nurse line [phone] and emergency room are available 13/02 for [...] Screen: ADL Screen - Cristina Index of [place] in Activities of Daily Living Bathing: (3 [...] Low (patient very dependent) IADL Screen - Humberto Instrumental Activities of Daily Living Scale Ability [...] Screen No incontinence. Suicide Screen: C-SSRS Screening Stephens-Suicide Severity Rating Scale (C-SSRS Screener) 1. Over [...] MAP: PERSONAL HEALTH PLAN INVENTORY & MAP 's Response: health and Influenza Immunization: Influenza, High-Dose, Trivalent, Preservative Free (Fluzone-Syringe) Administered: INFLUENZA, HIGH-DOSE, TRIVALENT, PF Date Administered: Apr 25, 2024 15:00 Gum Scoring Machine Operator: SANOFI PASTEUR Lot: [id number] Exp Date: Jan 20, 2025 [facility]: [phone] Admin Route/Site: INTRAMUSCULAR/LEFT DELTOID Dosage: 0.5mL Vaccine Information Statement(s): INFLUENZA(FLU) VACC(INACTIVATED OR RECOMBINANT)VIS Feb 26, 2021 ([place]) Order By: Policy Administered By: Katty Loo [...] gave verbal consent to receive the vaccine. /yesenia/ KATTY LOO LICENSED PRACTICAL NURSE Signed: 04/25/2024 15:17 [...] the TDAP group Date Documented: 04/25/24 15:53 /yesenia/ KATTY LOO LICENSED PRACTICAL NURSE Signed: 04/25/2024 15:54 KATTY LOO [facility]
--- OUTSIDE RECORDS SUMMARY | 2024-10-22 12:14 | XMS_ITS | Clinical Summary ---
Author Organization [facility] [place] [address] Address [address] [place] [address] Care Team Providers Care Room Worker Name Role Phone Glen Enamorado DO Primary Care Provider [phone] Allergies No known active allergies Medications Euthyrox [...] on file Legal Sex Male 2:26 PM ELDER COUNSELOR Gender Identity Male 06/21/2021 9:06 AM ELDER COUNSELOR Sexual Orientation Bisexual 06/21/2021 9: 15 AM ELDER COUNSELOR Obstetrics History Last Filed Vital Signs Vital Sign Reading Time Taken Comments Blood Pressure 148/62 11/22/2022 1:42 PM CDT Pulse 80 11/22/2022 1:42 PM CDT Temperature 36.4 C (97.5 F) 06/23/2020 10:59 AM ELDER COUNSELOR Respiratory Rate - - Oxygen Saturation 97% [...] Influenza Vaccine (#1) 2024 05/14/2013 Insurance MEDICARE COUNTS INCLUDE 234 BEDS AT [facility] Care Teams Room Worker Relationship Specialty Start Date End Date lGen Enamorado DO PCP - General Internal Medicine 05/07/20
--- OUTSIDE RECORDS SUMMARY | 2024-10-22 12:14 | XMS_ITS | Encounter Summary ---
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 Name Role Phone HUONG ROWELL Primary Care [...] COURTNEY PLUS 1 Jul 24, 2015 106 [id number] [phone] PAYAM ZHENG [facility] PATIENT ANTHEM [place] FEP PREFERRED PROVIDER ORGANIZAT ION (PPO) FEP STAND COURTNEY PLUS 1 Jul 24, 2015 106 [id number] [phone] PAYAM ZHENG [facility] PATIENT ANTHEM [place] FEP PREFERRED PROVIDER ORGANIZAT ION (PPO) FEP STAND COURTNEY PLUS 1 Jul 24, 2015 106 [id number] [phone] PAYAM ZHENG [facility] PATIENT BCBS FEP RETIREE [id number] Jan 22, 2004 105 [id number] PAYAM ZHENG PATIENT [place] FEP PREFERRED PROVIDER ORGANIZAT ION (PPO) FEP STAND COURTNEY PLUS 1 Jul 24, 2015 106 [id number] [phone] PAYAM ZHENG PATIENT [place] FEP PRESCRIPT ION [id number] Jan 22, 2004 [id number] [phone] PAYAM ZHENG PATIENT MEDICARE (WNR) MEDICARE (M) PART A Jan 22, 2004 PART A [id number] PAYAM ZHENG PATIENT MEDICARE (WNR) MEDICARE (M) PART B Jan 22, 2004 PART B [id number] PAYAM ZHENG PATIENT MEDICARE (WNR) MEDICARE (M) PART A Jan 22, 2004 PART A [id number] [phone] PAYAM ZHENG PATIENT MEDICARE (WNR) MEDICARE (M) PART B Jan 22, 2004 PART B [id number] PAYAM ZHENG PATIENT Selected Encounter This section includes the information on record at [place] for the Encounter. Date/Time Encounter Type Encounter Description Reason Provider Source Aug 16, 2024 08:15 AM OFFICE O/P EST LOW 20 MIN GENERAL SURGERY ICD-10-CM C43.9 Malignant melanoma of skin, unspecified AFT,JYOTI IHE Encounter Template Text not used by [place] Assessments - Encounter Diagnoses This section includes the primary and secondary diagnoses documented for the Encounter. Date/Time Primary/Secondary Diagnosis Diagnosis Name Provider Source Aug 16, 2024 12:46 PM PRIMARY Malignant melanoma of skin, unspecified MAGALI BURGER [facility] Plan of Treatment: Future Appointments (+ 6 months) and Future Tests (+/- 45 days) The Plan of Treatment section includes future care activities for the patient from all [place] treatmentfacilities. This section includes future appointments and future orders which are active, pending or scheduled. Future Appointments This section includes appointments that were scheduled to occur 6 months from the date of the Encounter, up to a maximum of 20 appointments. The data comes from all [place] treatment facilities. Appointment Date/Time Appointment Type Appointme nt Facility Name Aug 21, 2024 10:00 AM AMBULATORY - SURGERY [facility] Aug 28, 2024 09:00 AM AMBULATORY - MEDICINE [facility] Sep 05, 2024 09:00 AM AMBULATORY - SURGERY [facility] Sep 19, 2024 01:00 PM AMBULATORY - SURGERY [facility] Sep 27, 2024 11:00 AM AMBULATORY - SURGERY [facility] Oct 02, 2024 11:15 AM AMBULATORY - MEDICINE [facility] Oct 02, 2024 01:00 PM AMBULATORY - SURGERY [facility] Oct 21, 2024 01:30 PM AMBULATORY - SURGERY [facility] Oct 21, 2024 02:30 PM AMBULATORY - SURGERY [facility] Oct 29, 2024 01:00 PM AMBULATORY - REHAB MEDICIN E [facility] November 25, 2024 10:45 AM AMBULATORY - MEDICINE [facility] November 27, 2024 10:30 AM AMBULATORY - SURGERY [facility] November 27, 2024 11:15 AM AMBULATORY - MEDICINE [facility] Active, Pending, and Scheduled Orders This section includes a listing of several types of active, pending, and scheduled orders, including clinic medications orders, diagnostic test orders, procedure orders and consult orders; where the start date of the order is 45 days before the date of the Encounter or 45 days after the date of theEncounter. The data comes from all [place] treatment facilities. Test Date/Time Test Type Test Details Facility Name Jul 31, 2024 01:29 PM Pharmacy - Clinic Medication Order [facility] Lab Results: +/- 30 days of the encounter This section includes the Chemistry and Hematology Lab Results on record with [place] for the patient. Radiology Reports and Pathology Reports are provided separately, in subsequent sections. Lab Results This section contains the Chemistry/Hematology Results that were resulted 30 days before or 30 daysafter the date of the Encounter. Date/Time Source Result Type Result - Unit Interpretation Reference Range Comment Jul 31, 2024 01:28 PM [facility] GLUCOSE,BLOOD-poct (STL) Specimen Type: BLOOD Comment: Test Performed by: [id number] Meter #: [id number] Ordering Provider: JYOTI LUND Report Released Date/Time: Jul 31, 2024 01:30 PM Reporting Lab: [place] [address] [facility] [address] Performing Lab: [address] [address] GLUCOSE,BL OOD-poct (STL) 173 mg/dL H 72-99 Jul 31, 2024 09:05 AM [facility] GLUCOSE,BLOOD-poct (STL) Specimen Type: BLOOD Comment: Test Performed by: [id number] Meter #: [id number] Ordering Provider: JYOTI LUND Report Released Date/Time: Jul 31, 2024 09:08 AM Reporting Lab: [place] [address] [facility] [address] Performing Lab: [address] [address] GLUCOSE,BL OOD-poct (STL) 148 mg/dL H 72-99 Vital Signs: All taken on the encounter date This section contains inpatient and outpatient Vital Signs collected on the date of the Encounter. Date/Time Temperature Pulse Blood Pressure Respiratory Rate SP02 Pain Height Weight Body Mass Index Source Aug 16, 2024 08:25 AM 97.9 66 149/63 18 99 0 63 172.1 31 [facility] Social History: Smoking Status (Most current) and Tobacco Use (All prior to encounter date) This section includes the most current, and the historical, smoking and tobacco- related health factors from the [facility] where the Encounter took place. Current Smoking Status This section includes the most current smoking, or tobacco-related health factor, from the [place] facility where the Encounter took place. Date/Time Current Smoking Status Comment Facil ity December 07, 2015 03:10 PM QUIT TOBACCO >7 YEARS AGO [facility] Tobacco Use History This section includes a history of the smoking, or tobacco-related health factors, that were collected on or before the date of the Encounter. The data comes from the [place] facility where the Encounter took place. Date/Time Smoking Status/Tobacco Use Comment F acility May 20, 2014 09:22 AM QUIT TOBACCO >7 YEARS AGO [facility] Feb 19, 2013 09:01 AM QUIT TOBACCO >7 YEARS AGO [facility] December 20, 2006 08:06 AM QUIT TOBACCO >7 YEARS AGO [facility] Jun 12, 2006 09:00 AM CURRENT NON-TOBACC O USER-HX OF USE [facility] Jun 12, 2006 09:00 AM TOBACCO TERMINATION STAGE [facility] December 07, 2005 11:12 AM CURRENT NON-TOBACC O USER-HX OF USE [facility] December 07, 2005 11:12 AM TOBACCO TERMINATION STAGE [facility] Mar 21, 2005 01:46 PM CURRENT NON-TOBACC O USER-HX OF USE [facility] Mar 21, 2005 01:46 PM TOBACCO TERMINATION STAGE [facility] Mar 03, 2004 09:58 AM CURRENT NON-TOBACC O USER-HX OF USE [facility] Mar 03, 2004 09:58 AM TOBACCO TERMINATION STAGE [facility] Apr 21, 2003 09:25 AM CURRENT NON-TOBACC O USER-HX OF USE QUIT [address] [place] [address] Apr 21, 2003 09:25 AM CURRENT NON-TOBACC O USER-RECENTLY QUIT quit [address] [place] [address] Apr 21, 2003 09:25 AM TOBACCO USE quit [address] [place] [address] Nov 07, 2002 09:14 AM CURRENT NON-TOBACC O USER-RECENTLY QUIT quit [address] [place] [address] Nov 07, 2002 09:14 AM TOBACCO USE quit [address] [place] [address] Nov 08, 2001 08:09 AM CURRENT NON-TOBACC O USER-HX OF USE quit 20 yrs. ago [facility] Advance Directives: All historical and current Section Date Range: From patient's date of to the date document was created. This section includes ALL of a patient's completed or amended [place] Advance and Rescinded Directives. The entries below indicate that a directive exists for the patient, but an actual copy is not included with this document. The data comes from all [place] facilities. Date Advance Directives Provider Source Mar 26, 2021 ADVANCE DIRECTIVE DISCUSSION Jaqueline LEON [facility] Jun 12, 2014 ADVANCE DIRECTIVE DISCUSSION GÓMEZ ESPINAL [facility] Radiology Reports: +/- 30 days of [...] the Encounter. The data comes from all [place] treatment facilities. Date/Time Radiology Report Provider Source Jul 30, 2024 12:46 PM NM LYMPH NODE IMAG ING- P: VAUGHN ZHENG [id number] -[id number] M Exm Date: JUL 30, 2024@12:46 Req Phys: DIAMOND SCRUGGS Loc: -PRE-OP EVAL NURSING AM (Req Img Loc: -NUCLEAR MEDICINE Service: Unknown [address] [address] (Case [id number] COMPLETE) NM LYMPHATIC/LYMPH NODE IMAGING (NM Detailed) CPT:99050 Reason for Study: Left Arm Malignant Melanoma (Case 753 COMPLETE) TC99M TILMANOCEPT (LYMPHOSEEK) (NM Detailed) CPT:A9520 (Case 755 COMPLETE) NON-HEU TC-99M ADD-ON PER STUDY D(NM Detailed) CPT:Q9969 Clinical History: Enter History and Reason for Exam: Wide Local Excision of Left Arm Melanoma with [place] Lymph Node Biopsy scheduled on 07/31/[address] Jyoti Lund. 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 The data comes from all [place] treatment facilities. Date/Time Pathology Report Provider Source [...] - - - - - GROSS DESCRIPTION: (JeiIsaiasIvone, 07-31-2024) The specimens are received in formalin, [...] giant cell reaction are noted. IHC for [place]-1 is applied on block B3, B4, B5 [...] Performing Laboratory: Surgical Pathology Report [facility] CLIA# [id number] [facility] [address] [place] [address] $FTR - - - - - - - - - - - - - - - - - - - - - - - - - - - - - - - - - - - - - - - - (End of report) ROMAN AVILA MD [facility] Date Aug 06, 2024 - - - - - - - - - - - - - - - - - - - - - - - - - - - - - - - - - - - - - - - - VAUGHN ZHENG STANDARD FORM 515 ID:[id number] SEX:M :1940 AGE: 84 LOC:[facility]FEE PCP: Melania Kaiser MD /yesenia/ ROMAN AVILA Pathologist Signed: 08/06/2024 10:34 ROMAN AVILA [facility] Encounter Notes: All associated encounter notes This section contains the clinical notes associated to the Encounter. 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 The patient underwent a shave biopsy which demonstrated 1.5 mm B[place]low depth malignant melanoma. Patient underwent WLE with SLNB 07/31/24 and closure by PRS via STSG. Since surgery he has been doing well and has seen PRS in follow up, the graft and donor site appear to be healing appropriately. His pathology has since resulted as no residual melanoma and LN negative for disease. Today he reports doing very well and having virtually no pain, when he does ache he manages with tylenol. He reports mild numbness at the thumb that he attributes to the splint he had to wear per PRS. This continues to improve since the splint coming off. DIAGNOSIS: LYMPH NODE, LEFT AXILLARY, SENTINEL, EXCISION: REACTIVE LYMPH NODE (0/1) SKIN, LEFT FOREARM, STITCH SUPERIOR, EXCISION: NO EVIDENCE OF RESIDUAL MELANOMA PRIOR BIOPSY SITE CHANGES ALL MARGINS FREE OF TUMOR PMH: 1) Benign essential hypertension (SNOMED CT 6171061) 2) Dyspepsia 3) Diverticulosis Colon 4) Hemorrhoids 5) Allergic Rhinitis 6) Skin Cancer 7) Benign prostatic hyperplasia 8) B12 deficiency monitoring status (SNOMED CT 255286286) 9) Incisional hernia without mention of obstruction or gangrene (ICD-9-CM 553.21) 10) Hypothyroidism 11) Impaired glucose tolerance 12) Diabetes mellitus PSH: LUE WLE melanoma with SLNB and STSG Social: [place] ALLERGIES: Patient has answered NKA Active Outpatient Medications (excluding Supplies): Issue Date Status Last Fill Active Outpatient Medications Refills Expiration 1) ACETAMINOPHEN 325MG TAB Qty: 100 for 13 days ACTIVE Issue: 07/31/24 Sig: TAKE TWO TABLETS BY MOUTH FOUR TIMES A Refills: 0 Last : 07/31/24 DAY CAUTION: DO NOT EXCEED 4000MG PER DAY Expr : 08/30/24 ACETAMINOPHEN (APAP) FROM ALL MEDS. Indication: FOR PAIN 2) CEPHALEXIN 500MG CAP Qty: 21 for 7 days Sig: ACTIVE Issue: 07/31/24 TAKE ONE CAPSULE BY MOUTH THREE TIMES A DAY Refills: 0 Last : 07/31/24 TAKE WITH FOOD. TAKE UNTIL GONE UNLESS Expr : 08/30/24 OTHERWISE DIRECTED. Indication: POSTOPERATIVE PROPHYLAXIS 3) OXYCODONE HCL 5MG TAB Qty: 12 for 7 days ACTIVE Issue: 07/31/24 Sig: TAKE ONE TABLET BY MOUTH EVERY 6 HOURS Refills: 0 Last : 07/31/24 NEEDED MAY CAUSE CONSTIPATION Expr : 08/30/24 Indication: FOR POST-OPERATIVE PAIN Start Date Active Non-VA Medications Status Stop Date 1) Non-VA AMLODIPINE BESYLATE 5MG TAB SiMG ACTIVE BY MOUTH ONCE A DAY 2) Non-VA CHOLECALCIF 50MCG (D3-2,000UNIT) TAB ACTIVE SiUNIT BY MOUTH ONCE A DAY 3) Non-VA CYANOCOBALAMIN 1000MCG TAB Sig: ACTIVE 1000MCG BY MOUTH ONCE A DAY 4) Non-VA EMPAGLIFLOZIN 5MG/METFORMIN 1000MG ACTIVE TAB Si TABLET BY MOUTH TWICE A DAY Indication: FOR DIABETES 5) Non-VA LEVOTHYROXINE NA (SYNTHROID) 75MCG ACTIVE TAB SiMCG BY MOUTH EVERY MORNING BEFORE A MEAL 6) Non-VA LISINOPRIL 40MG TAB SiMG BY ACTIVE MOUTH ONCE A DAY 7) Non-VA LORATADINE 10MG TAB SiMG BY ACTIVE MOUTH ONCE A DAY 8) Non-VA METRONIDAZOLE 0.75% TOP GEL Sig: ACTIVE SPARINGLY TO AFFECTED AREA(S) TWICE A DAY 9) Non-VA MULTIVITAMIN CAP/TAB Si TABLET BY ACTIVE MOUTH ONCE A DAY 10) Non-VA OMEPRAZOLE 20MG EC CAP SiMG BY ACTIVE MOUTH EVERY MORNING 11) Non-VA PHENYLEPHRINE HCL 0.25% RTL SUPP Sig: ACTIVE 1 SUPPOSITORY RECTALLY TWICE DAILY NEEDED 12) Non-VA PSYLLIUM POWDER,ORAL Sig: BY MOUTH ACTIVE 15 Total Medications ROS: Review of systems is as per HPI and additionally notable for Constitutional: No fever, No weakness/ fatigue Cardiovascular: No chest pain, No palpitations Respiratory: No shortness of breath, No cough Genitourinary: No dysuria, No polyuria Neurology: No headache, No tremors Musculoskeletal: No joint pain, No back pain Skin: No rash, No itching Psychiatric: No anxiety, No depression PHYSICAL EXAM: No data available General - NAD, well-nourished, appropriate HEENT - MMM, no lesion or exudate Neck - supple, no thyromegaly CV - RRR Lung- unlabored breathing Abd - non-distended Ext - mild left hand edema, left forearm with PRS dressing over exicison site, clean without shadowing. Left axilla clean dry and intact. Lymph - no cervical or supraclavicular LAD Skin - no rashes, nodules, or jaundice Neuro - A&O x 3, MAEW Psych - normal mood and affect LABS: WBC 8.1 10*3/uL 07/03/2024 11:25 RBC 3.72 [...] 11:25 BASOPHILS, ABSOLUTE 0.04 10*3/uL 07/03/2024 11:25 SODIUM 140 mEq/L 07/03/2024 11:25 POTASSIUM 4.3 [...] 11:25 EGFR (CKD-EPI 2020) 61.1 07/03/2024 11:25 No INR EO data found IMAGING: No [...] CONTRAST CT THORACIC SPINE W/O&W CONTRAST ASSESSMENT/PLAN: 84 yo M h//o LEFT forearm melanoma now s/p WLE with SLNB and STSG for closure by PRS. Path resulted with neg residual disease and LN with no evidence of metastasis. PRS following for STSG, he has follow up with them next week. From an oncologic point of view he is surgically complete. We adviced he continues to follow with Derm for skin checks and PRS for wound healing. He knows to return to our clinic should new issues arise. FUTURE APPOINTMENTS: 08/16/2024 08:15 [facility]-GENERAL SURG BREAST CL 08/21/2024 10:00 [facility]-PLASTIC SURG WEATHERS 08/28/2024 09:00 [facility] 10/02/2024 11:15 [facility]-MAN PACT STRIPES RES 3 11/25/2024 10:45 [facility] 11/27/2024 10:30 [facility]-OPHTH EYE PLEITEZ /yesenia/ JOSE GARCES MD RESIDENT PHYSICIAN, GENERAL SURGERY Signed: 08/16/2024 12:46 /yesenia/ JYOTI LUND Staff Physician - General Surgery Cosigned: 08/16/2024 17:03 JOSE BURGER [facility]
--- OUTSIDE RECORDS SUMMARY | 2024-10-22 12:15 | XMS_ITS | Encounter Summary ---
Author Name [facility] [place] [facility] [place] Address [address] [place] [address] Care Team Providers Care Steward/Stewardess Economy Class Name Role Phone HUONG ROWELL Primary Care [...] COURTNEY PLUS 1 Jul 24, 2015 106 [id number] [phone] PAYAM ZHENG PATIENT ANTHEM [employer] [place] FEP PREFERRED PROVIDER ORGANIZAT ION (PPO) FEP STAND COURTNEY PLUS 1 Jul 24, 2015 106 [id number] [phone] PAYAM ZHENG [facility] PATIENT ANTHE[place] F[place] PREFERRED PROVIDER ORGANIZAT ION (PPO) FEP STAND COURTNEY PLUS 1 Jul 24, 2015 106 [id number] [phone] PAYAM ZHENG PATIENT [employer] FEP RETIREE [id number] Jan 22, 2004 [id number] PAYAM ZHENG PATIENT [place] F[place] PREFERRED PROVIDER ORGANIZAT ION (PPO) FEP STAND COURTNEY PLUS 1 Jul 24, 2015 106 [id number] [phone] PAYAM ZHENG PATIENT [place] FEP PRESCRIPT [id number] Jan 22, 2004 [id number] [phone] PAYAM ZHENG PATIENT MEDICARE (WNR) MEDICARE (M) PART A Jan 22, 2004 PART A [id number] PAYAM ZHENG PATIENT MEDICARE (WNR) MEDICARE (M) PART B Jan 22, 2004 PART B [id number] PAYAM ZHENG PATIENT MEDICARE (WNR) MEDICARE (M) PART A Jan 22, 2004 PART A [id number] [phone] PAYAM ZHENG PATIENT MEDICARE (WNR) MEDICARE (M) PART B Jan 22, 2004 PART B [id number] PAYAM ZHENG PATIENT Selected Encounter This section includes the information on record at [place] for the Encounter. Date/Time Encounter Type Encounter Description Reason Provider Source Jul 31, 2024 09:41 AM HOSP IP/OBS SM DT SF/LOW 45 GENERAL SURGERY ICD-10-CM C43.9 Malignant melanoma of skin, unspecified AFT,JYOTI IHE Encounter Template Text not used by [place] Assessments - Encounter Diagnoses This section includes the primary and secondary diagnoses documented for the Encounter. Date/Time Primary/Secondary Diagnosis Diagnosis Name Provider Source Jul 31, 2024 09:59 AM PRIMARY Malignant melanoma of skin, unspecified KWAKU HOANG [facility] Plan of Treatment: Future Appointments (+ 6 months) and Future Tests (+/- 45 days) The Plan of Treatment section includes future care activities for the patient from all [place] treatmentfacilities. This section includes future appointments and future orders which are active, pending or scheduled. Future Appointments This section includes appointments that were scheduled to occur 6 months from the date of the Encounter, up to a maximum of 20 appointments. The data comes from all [place] treatment facilities. Appointment Date/Time Appointment Type Appointme nt Facility Name Aug 03, 2024 02:29 PM AMBULATORY - MEDICINE [facility] Aug 07, 2024 09:20 AM AMBULATORY - SURGERY [facility] Aug 16, 2024 08:15 AM AMBULATORY - SURGERY [facility] Aug 21, 2024 10:00 AM AMBULATORY - SURGERY [facility] Aug 28, 2024 09:00 AM AMBULATORY - MEDICINE [facility] Sep 05, 2024 09:00 AM AMBULATORY - SURGERY [facility] Sep 19, 2024 01:00 PM AMBULATORY - SURGERY [facility] Sep 27, 2024 11:00 AM AMBULATORY - SURGERY [facility] Oct 02, 2024 11:15 AM AMBULATORY - MEDICINE [facility] Oct 02, 2024 01:00 PM AMBULATORY - SURGERY [facility] Oct 21, 2024 01:30 PM AMBULATORY - SURGERY [facility] Oct 21, 2024 02:30 PM AMBULATORY - SURGERY [facility] Oct 29, 2024 01:00 PM AMBULATORY - REHAB MEDICIN E [facility] November 25, 2024 10:45 AM AMBULATORY - MEDICINE [facility] November 27, 2024 10:30 AM AMBULATORY - SURGERY [facility] November 27, 2024 11:15 AM AMBULATORY - MEDICINE [facility] Active, Pending, and Scheduled Orders This section includes a listing of several types of active, pending, and scheduled orders, including clinic medications orders, diagnostic test orders, procedure orders and consult orders; where the start date of the order is 45 days before the date of the Encounter or 45 days after the date of theEncounter. The data comes from all [place] treatment facilities. Test Date/Time Test Type Test Details Facility Name Jul 31, 2024 01:29 PM Pharmacy - Clinic Medication Order [facility] Lab Results: [...] Range Comment Jul 31, 2024 01:28 PM [facility] GLUCOSE,BLOOD-poct (STL) Specimen Type: BLOOD Comment: Test Performed by: [id number] Meter #: [id number] Ordering Provider: JYOTI LUND Report Released Date/Time: Jul 31, 2024 01:30 PM Reporting Lab: [place] [id number] [facility] [address] Performing Lab: [address] [address] GLUCOSE,BLOOD -poct (STL) 173 mg/dL H 72-99 Jul 31, 2024 09:05 AM [facility] GLUCOSE,BLOOD-poct (STL) Specimen Type: BLOOD Comment: Test Performed by: [id number] Meter #: [id number] Ordering Provider: JYOTI LUND Report Released Date/Time: Jul 31, 2024 09:08 AM Reporting Lab: [address] [address] Performing Lab: [address] [address] GLUCOSE,BLOOD -poct (STL) 148 mg/dL H 72-99 Jul 03, 2024 11:25 AM [facility] BASIC METABOLIC PANEL Specimen Type: PLASMA Comment: No hemolysis noted. Ordering Provider: JYOTI LUND Report Released Date/Time: Jun 24, 2024 11:11 AM Reporting Lab: [address] [address] Performing Lab: [address] [address] CREATININE 1.17 mg/dL 0.7-1.3 UREA NITROGEN 15.4 mg/dL 9.0-25.0 GLUCOSE 175 mg/dL H 72-99 SODIUM 140 meq/L 136-145 POTASSIUM 4.3 meq/L 3.5-5 CHLORIDE 106 meq/L 98-107 CARBON DIOXIDE 25 meq/L 22-31 CALCIUM 9.0 mg/dL 8.4-10.4 EGFR (CKD-EPI 2020) 61.1 >60 Jul 03, 2024 11:25 AM [facility] CBC Specimen Type: BLOOD No comment entered. Ordering Provider: JYOTI LUND Report Released Date/Time: Jun 24, 2024 11:11 AM Reporting Lab: [facility] [address] [facility] [address] Performing Lab: [facility] [address] [facility] [address] WBC 8.1 10*3/uL 3.6-11.2 RBC 3.72 10*6/uL [...] Height Weight Body Mass Index Source Jul 31, 2024 02:05 PM 97 63 149/60 11 99 1 [facility] Jul 31, 2024 09:15 AM 97.1 62 177/71 13 100 0 63 169.5 30 [facility] Social History: Smoking Status (Most current) and Tobacco Use (All prior to encounter date) This section includes the most current, and the historical, smoking and tobacco- related health factors from the [place] facility where the Encounter took place. Current Smoking Status This section includes the most current smoking, or tobacco-related health factor, from the [place] facility where the Encounter took place. Date/Time Current Smoking Status Comment Leonela franco December 07, 2015 03:10 PM QUIT TOBACCO >7 YEARS AGO [facility] Tobacco Use History This section includes a history of the smoking, or tobacco-related health factors, that were collected on or before the date of the Encounter. The data comes from the [place] facility where the Encounter took place. Date/Time [...] NON-TOBACC O USER-HX OF USE QUIT 1972 [facility] Apr 21, 2003 09:25 AM CURRENT NON-TOBACC O USER-RECENTLY QUIT quit [address] [place] [address] Apr 21, 2003 09:25 AM TOBACCO USE quit 1972 [facility] Nov 07, 2002 09:14 AM CURRENT NON-TOBACC O USER-RECENTLY QUIT quit 1971 [facility] Nov 07, 2002 09:14 AM TOBACCO USE quit 1971 [facility] Nov 08, 2001 08:09 AM CURRENT NON-TOBACC O USER-HX OF USE quit 20 yrs. ago [facility] Advance Directives: All historical and current Section Date Range: From patient's date of to the date document was created. This section includes ALL of a patient's completed or amended [place] Advance and Rescinded Directives. The entries below indicate that a directive exists for the patient, but an actual copy is not included with this document. The data comes from all [place] facilities. Date Advance Directives Provider Source Mar 26, 2021 ADVANCE DIRECTIVE DISCUSSION Jaqueline LEON [facility] Jun 12, 2014 ADVANCE DIRECTIVE DISCUSSION GÓMEZ ESPINAL [facility] Radiology Reports: +/- 30 days of the [...] the Encounter. The data comes from all [place] treatment facilities. Date/Time Radiology Report Provider Source Jul 30, 2024 12:46 PM NM LYMPH NODE IMAGING- P: VAUGHN ZHENG [id number] -1940 M Exm Date: JUL 30, 2024@12:46 Req Phys: DIAMOND SCRUGGS Loc: [facility]PRE-OP EVAL NURSING AM (Req Img Loc: [facility]NUCLEAR MEDICINE Service: [address] [address] (Case [id number] COMPLETE) NM LYMPHATIC/LYMPH NODE IMAGING (NM Detailed) CPT:45692 Reason for Study: Left Arm Malignant Melanoma (Case 753 COMPLETE) TC99M TILMANOCEPT (LYMPHOSEEK) (NM Detailed) CPT:A9520 (Case 755 COMPLETE) NON-HEU TC-99M ADD-ON PER STUDY D(NM Detailed) CPT:Q9969 Clinical History: Enter History and Reason for Exam: Wide Local Excision of Left Arm Melanoma with [place] Lymph Node Biopsy scheduled on 07/31/[address] Jyoti Lund. Patient needs lymphoscintigraphy on 07/30/2024 Enter date AND time of surgery: 07/31/2024 1030 PATIENT HEIGHT: 64 in [162.6 cm] (03/19/2019 14:34) PATIENT WEIGHT: 172 lb [78.02 kg] (04/25/2024 15:04) Report Status: Verified Date Reported: JUL 30, 2024 Date Verified: JUL 30, 2024 Continuity Editor E-Sig:/ES/Jonel Marques MD,PhD Report: Patient Name: Lisa [...] Resident: ANABELLA PAIZ, Resident Physician /JONEL MAO [facility] Jul 03, 2024 10:59 AM CHEST X-RAY, 2 VIEWS: VAUGHN ZHENG [id number] -1940 M Exm Date: JUL 03, 2024@10:59 Req Phys: DIAMOND SCRUGGS Loc: [facility]GEN SURG [facility]IC (Req'g Lo Img Loc: [facility]-MAIN RADIOLOGY SUITE Service: Unknown [facility] [address] [place] [address] (Case [id number] COMPLETE) CHEST X-RAY, 2 VIEWS (RAD Detailed) CPT:73094 Reason for Study: Pre Op Clinical History: Report Status: Verified Date Reported: JUL 04, 2024 Date Verified: JUL 04, 2024 Continuity Editor E-Sig:/ES/KATY MCNEIL MD Report: Case #[id number]. Chest examination. COMPARISON: 05/25/2023. Finding: PA and lateral views of the chest examination shows no evidence of cardiomegaly. Tortuous aorta is seen. No evidence of pulmonary vascular congestion, consolidation or mass. No evidence of pleural effusion or pneumothorax. Impression: No evidence of pulmonary consolidation, mass or lymphadenopathy. Primary Interpreting Staff: KATY MCNEIL MD, Staff Physician - Radiologist (Continuity Editor) /JUAN PABLO GONZALEZ [facility] Pathology Reports: +/- 30 days [...] the Encounter. The data comes from all [place] treatment facilities. Date/Time Pathology Report Provider Source Aug 06, 2024 10:34 AM LR SURGICAL PATHOL DARRELL REPORT: LOCAL TITLE: LR SURGICAL PATHOLOGY REPORT [...] giant cell reaction are noted. IHC for Creede-1 is applied on block B3, B4, B5 [...] Performing Laboratory: Surgical Pathology Report Performed By: [facility] CLIA# [id number] [address] [facility] [address] [place] [address] $FTR - - - - - - - - - - - - - - - - - - - - - - - - - - - - - - - - - - - - - - - - (End of report) ROMAN AVILA MD [facility] Date Aug 06, 2024 - - - - - - - - - - - - - - - - - - - - - - - - - - - - - - - - - - - - - - - - VAUGHN ZHENG STANDARD FORM 515 ID:[id number] SEX:M :1940 AGE: 84 LOC:[facility] PCP: Melania Kaiser MD /yesenia/ ROMAN AVILA Pathologist Signed: 08/06/2024 10:34 ROMAN AVILA [facility] Encounter Notes: All associated encounter notes This section contains the clinical notes associated to the Encounter. Date/Time Encounter Note(s) Provider Source Jul 31, 2024 01:23 PM OPERATIVE NOTE: LOCAL TITLE: BRIEF OP NOTE STL STANDARD TITLE: OPERATIVE NOTE DATE OF NOTE: JUL 31, 2024@13:23 ENTRY DATE: JUL 31, 2024@13:23:24 AUTHOR: KWAKU HOANG COSIGNER: JYOTI LUND URGENCY: STATUS: COMPLETED Date of Surgery:Jul Surgery Case #:[id number] Pre-Operative Diagnosis:Malignant melanoma of left forearm Post-Operative Diagnosis:Malignant melanoma of left forearm Surgery Performed: Left forearm wide local excision, left axillary sentinel lymphnode biopsy Attending: Jyoti Lund MD Surgeon: Kwaku Hoang MD 1st Pipe Caulker:None Type of Anesthesia:General Specimens:Yes If yes, number of specimens - 2 Left forearm melanoma, stitch superior Left axillary lymphnode Findings: Left forearm wide local excision totaling 5x5 cm down to muscle fascia. Left axillary sentinel lymphnode biopsy performed with no hot lymphnodes noted, blue stained lymphnode excised. Complications:None Estimated Blood Loss:10 Blood Given? No If yes, how much? Fluid Replacement: 700cc crystalloid Status En-Route to PACU? Critical: No Satisfactory: Yes /yesenia/ KWAKU HOANG GENERAL SURGERY RESIDENT Signed: 07/31/2024 13:27 /yesenia/ JYOTI LUND Staff Physician - General Surgery Cosigned: 08/02/2024 09:22 VIKTOR,KWAKU [facility] Jul 31, 2024 09:42 AM SURGERY ATTENDING PRE OPERATIVE E & M NOTE: LOCAL TITLE: GENERAL SURGERY PRE-OP HISTORY AND PHYSICAL STL STANDARD TITLE: SURGERY ATTENDING PRE OPERATIVE E & M NOTE DATE OF NOTE: JUL 31, 2024@09:42 ENTRY DATE: JUL 31, 2024@09:42:44 AUTHOR: KWAKU HOANG COSIGNER: JYOTI LUND URGENCY: STATUS: COMPLETED HPI: The patient is an 84-year-old male with pmhx of HTN, Diverticulosis, BPH, who on routine surveillance by his family assessment worker was noted to have a lesion on his left forearm. The patient underwent a shave biopsy which demonstrated 1.5 mm breslow depth malignant melanoma. Patient presenting today for wide local excision and sentinel lymphnode biopsy with possible skin graft closure with plastic surgery. Patient is overall feeling well today with no acute concerns. Patient denies recent changes in health fever, chills, nausea, vomiting, lightheadedness. NPO since midnight. Patient is takes a baby aspirin daily, last dose 2 days ago, otherwise not on blood thinners. PAST MEDICAL HISTORY: 1) Benign essential hypertension (SNOMED CT 7983585) 2) Dyspepsia 3) Diverticulosis Colon 4) Hemorrhoids 5) Allergic Rhinitis 6) Skin Cancer 7) Benign prostatic hyperplasia 8) B12 deficiency monitoring status (SNOMED CT 676423548) 9) Incisional hernia without mention of obstruction or gangrene (ICD-9-CM 553.21) 10) Hypothyroidism 11) Impaired glucose tolerance 12) Diabetes mellitus PAST SURGICAL HISTORY: NC Family history/social history: NC ROS: Constitutional: Negative for fevers/chills, dizziness Eyes: Negative for visual changes CV: Negative for chest pain, palpitations Pulm: Negative for dyspnea, SOB GI: Negative for abdominal pain, nausea, vomiting, constipation, or diarrhea : Negative for dysuria, hematuria, urgency, or frequency MSK: Negative for myalgias, arthralgias Skin: As per HPI Neuro: Negative for weakness ALLERGIES: Patient has answered NKA MEDS: As below ACTIVE INPT MEDS: 1) CEFAZOLIN 2GM/BAG INJ,SOLN IVPB Q4H GIVE IN O.R. ON: Jul@10:30 Standard doses needed: 2 ACTIVE OUTPATIENT MEDS: Active Outpatient Medications (including Supplies): Active Non-[place] Medications Status 1) Non-VA AMLODIPINE [...] 12) Non-VA PSYLLIUM POWDER,ORAL BY MOUTH ACTIVE SOCIAL: Denies smoking, alcohol, or drug use PHYSICAL EXAM: Gen: No acute distress Neuro: Moving all extremities, no focal deficits HEENT: Atraumatic/normocephalic, EOMI, oropharynx clear CV: RRR Pulm: Nonlabored respirations on RA Abd: Soft, NT/ND Extremities: Left upper Ext - no edema, no cyanosis, the patient has a healing superficial ulcer on the posterior aspect of his left arm several centimeters above his wrist. The superficial ulcer is approximately 1.5 cm. This is consistent with his recent shave biopsy. Otherwise extremities warm and well perfused, no cyanosis, clubbing, or edema Psych: Appropriate mood and affect LABS: CHEM 7: SODIUM 140 mEq/L 07/03/2024 [...] 11:25) PLATELETS: PLT 252 10*3/uL 07/03/2024 11:25 Pathology: 05/27/24: DIAGNOSIS: SKIN, LEFT FOREARM, SHAVE BIOPSY - MALIGNANT MELANOMA, NODULAR TYPE WITH SPINDLE CELL FEATURES (SEE MICROSCOPIC DESCRIPTION/COMMENT) - PROVISIONAL BRESLOW THICKNESS 1.5 MM - DEFINITIVE EPIDERMAL ULCERATION NOT OBSERVED - HIGH DERMAL MELANOMA MITOTIC RATE DIAGNOSIS: Malignant Melanoma ASSESSMENT/PLAN: The patient is an 84-year-old male with pmhx of HTN, Diverticulosis, BPH, presenting with left upper extremity pathology proven 1.5 mm breslow depth malignant melanoma presenting today for left upper extremity wide local excision and sentinel lymphnode biopsy, possible skin graft closure with plastic surgery. Risks/benefits/alternatives of operative intervention were discussed with the patient following which patient expressed understanding and wished to proceed. - To OR for left upper extremity wide local excision and sentinel lymphnode biopsy with Dr. Lund possible skin graft closure with plastic surgery - Risks, benefits, and alternatives of the procedure were discussed with the patient. Specific risks of recurrence, further procedures, damage to surrounding structures, lymphedema were discussed. After discussion patient expressed understanding and wished to proceed. Consent signed and uploaded to chart. - Preop ancef ordered - Site marked: Left forearm and axilla /yesenia/ KWAKU HOANG GENERAL SURGERY RESIDENT Signed: 07/31/2024 09:59 /yesenia/ JYOTI LUND Staff Physician - General Surgery Cosigned: 07/31/2024 10:45 KWAKU HOANG [facility]
--- OUTSIDE RECORDS SUMMARY | 2024-10-22 12:15 | XMS_ITS | Encounter Summary ---
Author Name [facility] [place] [facility] [place] Address [address] [place] [address] Care Team Providers Care It Data Architect Name Role Phone SORIN, HUONG Primary Care [...] COURTNEY PLUS 1 Jul 24, 2015 106 [id number] [phone] PAYAM ZHENG PATIENT ANTHEM [place] FEP PREFERRED PROVIDER ORGANIZAT ION (PPO) FEP STAND COURTNEY PLUS 1 Jul 24, 2015 106 [id number] [phone] PAYAM ZHENG PATIENT ANTHEM [place] FEP PREFERRED PROVIDER ORGANIZAT ION (PPO) FEP STAND COURTNEY PLUS 1 Jul 24, 2015 106 [id number] [phone] PAYAM ZHENG PATIENT BCBS FEP RETIREE [id number] Jan 22, 2004 [id number] PAYAM ZHENG PATIENT [place] FEP PREFERRED PROVIDER ORGANIZAT ION (PPO) FEP STAND COURTNEY PLUS 1 Jul 24, 2015 106 [id number] [phone] PAYAM ZHENG PATIENT [place] FEP PRESCRIPT ION [id number] Jan 22, 2004 [id number] [phone] PAYAM ZHENG PATIENT MEDICARE (WNR) MEDICARE (M) PART B Jan 22, 2004 PART B [id number] PAYAM ZHENG PATIENT MEDICARE (WNR) MEDICARE (M) PART A Jan 22, 2004 PART A [id number] PAYAM ZHENG PATIENT MEDICARE (WNR) MEDICARE (M) PART A Jan 22, 2004 PART A [id number] PAYAM ZHENG PATIENT MEDICARE (WNR) MEDICARE (M) PART B Jan 22, 2004 PART B [id number] [phone] PAYAM ZHENG PATIENT Selected Encounter This section includes the information on record at [place] for the Encounter. Date/Time Encounter Type Encounter Description Reason Provider Source Aug 03, 2024 02:29 PM Outpatient Encounter EMERGENCY DEPT SANTIAGO GONZALEZ Encounter Template Text not used by [place] [...] 07, 2024 09:20 AM AMBULATORY - SURGERY . [facility] Aug 16, 2024 08:15 AM AMBULATORY - SURGERY [facility] Aug 21, 2024 10:00 AM AMBULATORY - SURGERY [facility] Aug 28, 2024 09:00 AM AMBULATORY - MEDICINE [facility] Sep 05, 2024 09:00 AM AMBULATORY - SURGERY [facility] Sep 19, 2024 01:00 PM AMBULATORY - SURGERY . [facility] Sep 27, 2024 11:00 AM AMBULATORY - SURGERY [facility] Oct 02, 2024 11:15 AM AMBULATORY - MEDICINE [facility] Oct 02, 2024 01:00 PM AMBULATORY - SURGERY . [facility] Oct 21, 2024 01:30 PM AMBULATORY - SURGERY . [facility] Oct 21, 2024 02:30 PM AMBULATORY - SURGERY . [facility] Oct 29, 2024 01:00 PM AMBULATORY - REHAB MEDICIN E [facility] November 25, 2024 10:45 AM AMBULATORY - MEDICINE [facility] November 27, 2024 10:30 AM AMBULATORY - SURGERY [facility] November 27, 2024 11:15 AM AMBULATORY - MEDICINE [facility] Active, Pending, and Scheduled Orders This section includes a listing of several types of active, pending, and scheduled orders, including clinic medications orders, diagnostic test orders, procedure orders and consult orders; where the start date of the order is 45 days before the date of the Encounter or 45 days after the date of theEncounter. The data comes from all [place] treatment facilities. Test Date/Time Test Type Test Details Facility Name Jul 31, 2024 01:29 PM Pharmacy - Clinic Medication Order [facility] Lab Results: +/- 30 days of [...] Range Comment Jul 31, 2024 01:28 PM [facility] GLUCOSE,BLOOD-poct (STL) Specimen Type: BLOOD Comment: Test Performed by: [id number] Meter #: [id number] Ordering Provider: JYOTI LUND Report Released Date/Time: Jul 31, 2024 01:30 PM Reporting Lab: [facility] [address] [facility] [address] Performing Lab: [facility] [address] [facility] [address] GLUCOSE,BL OOD-poct (STL) 173 mg/dL H 72-99 Jul 31, 2024 09:05 AM [facility] GLUCOSE,BLOOD-poct (STL) Specimen Type: BLOOD Comment: Test Performed by: [id number] Meter #: [id number] Ordering Provider: JYOTI LUND Report Released Date/Time: Jul 31, 2024 09:08 AM Reporting Lab: [place] [address] [facility] [address] Performing Lab: [place] [address] [facility] [address] GLUCOSE,BL OOD-poct (STL) 148 mg/dL H 72-99 Vital Signs: All taken on the encounter date This section contains inpatient and outpatient Vital Signs collected on the date of the Encounter. Date/Time Temperature Pulse Blood Pressure Respiratory Rate SP02 Pain Height Weight Body Mass Index Source Aug 03, 2024 02:35 PM 97.6 71 178/76 16 0 [facility] Social History: Smoking Status [...] 03:10 PM QUIT TOBACCO >7 YEARS AGO [facility] Tobacco Use History This section includes a history of the smoking, or tobacco-related health factors, that were collected on or before the date of the Encounter. The data comes from the [place] facility where the Encounter took place. Date/Time Smoking Status/Tobacco Use Comment F acility May 20, 2014 09:22 AM QUIT TOBACCO >7 YEARS AGO [facility] Feb 19, 2013 09:01 AM QUIT TOBACCO >7 YEARS AGO [facility] December 20, 2006 08:06 AM QUIT TOBACCO >7 YEARS AGO [facility] Jun 12, 2006 09:00 AM CURRENT NON-TOBACC O USER-HX OF USE [facility] Jun 12, 2006 09:00 AM TOBACCO TERMINATION STAGE [facility] December 07, 2005 11:12 AM CURRENT NON-TOBACC O USER-HX OF USE [facility] December 07, 2005 11:12 AM TOBACCO TERMINATION STAGE [facility] Mar 21, 2005 01:46 PM CURRENT NON-TOBACC O USER-HX OF USE [facility] Mar 21, 2005 01:46 PM TOBACCO TERMINATION STAGE [facility] Mar 03, 2004 09:58 AM CURRENT NON-TOBACC O USER-HX OF USE [facility] Mar 03, 2004 09:58 AM TOBACCO TERMINATION STAGE [facility] Apr 21, 2003 09:25 AM CURRENT NON-TOBACC O USER-HX OF USE QUIT [address] [place] [address] Apr 21, 2003 09:25 AM CURRENT NON-TOBACC O USER-RECENTLY QUIT quit [address] [place] [address] Apr 21, 2003 09:25 AM TOBACCO USE quit [address] [place] [address] Nov 07, 2002 09:14 AM CURRENT NON-TOBACC O USER-RECENTLY QUIT quit [address] [place] [address] Nov 07, 2002 09:14 AM TOBACCO USE quit [address] [place] [address] Nov 08, 2001 08:09 AM CURRENT NON-TOBACC O USER-HX OF USE quit 20 yrs. ago [facility] Advance Directives: All historical and current [...] ADVANCE DIRECTIVE DISCUSSION Jaqueline LEON [facility] Jun 12, 2014 ADVANCE DIRECTIVE DISCUSSION GÓMEZ ESPINAL [facility] Radiology Reports: +/- 30 days [...] LYMPH NODE IMAG ING- P: VAUGHN ZHENG [id number] -[id number] M Exm Date: JUL 30, 2024@12:46 Req Phys: DIAMOND SCRUGGS Loc: [facility]-PRE-OP EVAL NURSING AM (Req Img Loc: -NUCLEAR MEDICINE Service: Unknown [address] [address] (Case [id number] COMPLETE) NM LYMPHATIC/LYMPH NODE IMAGING (NM Detailed) CPT:29643 Reason for Study: Left Arm Malignant Melanoma (Case 753 COMPLETE) TC99M TILMANOCEPT (LYMPHOSEEK) (NM Detailed) CPT:A9520 (Case 755 COMPLETE) NON-HEU TC-99M ADD-ON PER STUDY D(NM Detailed) CPT:Q9969 Clinical History: Enter History and Reason for Exam: Wide Local Excision of Left Arm Melanoma with [place] Lymph Node Biopsy scheduled on 07/31/[address] Jyoti Lund. Patient needs lymphoscintigraphy on 07/30/2024 Enter date AND time of surgery: 07/31/2024 1030 PATIENT HEIGHT: 64 in [162.6 cm] (03/19/2019 14:34) PATIENT WEIGHT: 172 lb [78.02 kg] (04/25/2024 15:04) Report Status: Verified Date Reported: JUL 30, 2024 Date Verified: JUL 30, 2024 Medical Sales Specialist E-Sig:/ES/Jonel Marques MD,PhD Report: Patient Name: Lisa [...] Staff: Jonel Marques MD,PhD, Nuclear Medicine Physician (Medical Sales Specialist) Primary Interpreting Resident: ANABELLA PAIZ, Resident Physician /JONEL MAO [facility] Pathology Reports: +/- 30 days [...] 06, 2024 10:34 AM LR SURGICAL PATHOL OGMiryam REPORT: LOCAL TITLE: LR SURGICAL PATHOLOGY REPORT [...] giant cell reaction are noted. IHC for Whitney-1 is applied on block B3, B4, B5 [...] Performing Laboratory: Surgical Pathology Report [facility] By: [facility] [address] [place] [address] CLIA# [id number] [address] [address] $FTR - - - - - - - - - - - - - - - - - - - - - - - - - - - - - - - - - - - - - - - - (End of report) ROMAN AVILA MD [facility] Date Aug 06, 2024 - - - - - - - - - - - - - - - - - - - - - - - - - - - - - - - - - - - - - - - - VAUGHN ZHENG STANDARD FORM 515 ID:[id number] SEX:M :1940 AGE: 84 LOC:APFEE PCP: Melania Kaiser MD /yesenia/ ROMAN AVILA Pathologist Signed: 08/06/2024 10:34 ROMAN AVILA [facility] Encounter Notes: All associated encounter notes This section contains the clinical notes associated to the Encounter. 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 no fever. was told to report to ER for evaluation. Level of Consciousness (AVPU): Alert = Appears aware of and responsive to the environment on their own. Follows commands, opens eyes spontaneously, and tracks objects. Vital Signs: Temperature 97.6 F (36.4 C) Pulse 71 Respirations 16 Blood Pressure 178/76 Pulse Oximetry 97 Room Air National Early Warning Score (NEWS): The NEWS total is 0. 1. Temperature (C/F): Score = 0 36.1 - 38.0 C (96.9 - 100.4 F) 2. Pulse: Score = 0 51-90 3. Respirations: Score = 0 12-20 4. Blood Pressure (Only Systolic BP, mmHg): Score = 0 111-219 5. Pulse Oximetry: Score = 0 96% or greater 6. Supplemental oxygen in use: Score = 0 No 7. AVPU: Score = 0 Alert Pain: No pain Pain Score: 0 Suicide Screen: [place] Suicide Severity Rating Scale (C-SSRS) screener 1. Over the past month, have you [...] required due to responses to other questions. Emergency Severity Index (FAUSTINO) level: Level 3 Previously documented allergies: Patient has answered NKA Current Problems: 1) Benign essential hypertension (SNOMED CT 9569883) 2) Dyspepsia 3) Diverticulosis Colon 4) Hemorrhoids 5) Allergic Rhinitis 6) Skin Cancer 7) Benign prostatic hyperplasia 8) B12 deficiency monitoring status (SNOMED CT 321651939) 9) Incisional hernia without mention of obstruction or gangrene (ICD-9-CM 553.21) 10) Hypothyroidism 11) Impaired glucose tolerance 12) Diabetes mellitus /yesenia/ SANTIAGO GONZALEZ RN Signed: 08/03/2024 14:36 SANTIAGO GONZALEZ [facility]
--- OUTSIDE RECORDS SUMMARY | 2024-10-22 12:15 | XMS_ITS ---
Author Name [facility] [place] Address [address] [place] [address] Care Team Providers Care Housekeeping And Laundry Team Leader Name Role Phone HUONG ROEWLL Primary Care Provider JANKI Miller Unavailable Unavailable [...] COURTNEY PLUS 1 Jul 24, 2015 106 [id number] [phone] PAYAM ZHENG [facility] PATIENT AN[place] FEP PREFERRED PROVIDER ORGANIZAT ION (PPO) FEP STAND COURTNEY PLUS 1 Jul 24, 2015 106 [id number] [phone] PAYAM ZHENG [facility] PATIENT [place] PREFERRED PROVIDER ORGANIZAT ION (PPO) FEP STAND COURTNEY PLUS 1 Jul 24, 2015 106 [id number] [phone] PAYAM ZHENG [facility] PATIENT BCBS FEP RETIREE [id number] Jan 22, 2004 [id number] PAYAM ZHENG PATIENT [place] F[place] PREFERRED PROVIDER ORGANIZAT ION (PPO) FEP STAND COURTNEY PLUS 1 Jul 24, 2015 106 [id number] [phone] PAYAM ZHENG PATIENT [place] FEP PRESCRIPT ION [id number] Jan 22, 2004 [id number] PAYAM ZHENG PATIENT MEDICARE (WNR) MEDICARE (M) PART B Jan 22, 2004 PART B [id number] [phone] PAYAM ZHENG PATIENT MEDICARE (WNR) MEDICARE (M) PART A Jan 22, 2004 PART A [id number] PAYAM ZHENG PATIENT MEDICARE (WNR) MEDICARE (M) PART A Jan 22, 2004 PART A [id number] PAYAM ZHENG PATIENT MEDICARE (WNR) MEDICARE (M) PART B Jan 22, 2004 PART B [id number] PAYAM ZHENG PATIENT Selected Encounter This section includes the information on record at [place] for the Encounter. Date/Time Encounter Type Encounter Description Reason Provider Source Oct 21, 2024 02:30 PM OFFICE O/P EST SF 10 MIN PLASTIC SURGERY ICD-10-CM C44.90 Unspecified malignant neoplasm of skin, unspecified ROCCO SANCHEZ Encounter Template Text not used by [place] Assessments - Encounter Diagnoses This section includes the primary and secondary diagnoses documented for the Encounter. Date/Time Primary/Secondary Diagnosis Diagnosis Name Provider Source Oct 21, 2024 04:16 PM PRIMARY Unspecified malignant neoplasm of skin, unspecified ROCCO SANCHEZ [facility] Plan of Treatment: Future Appointments (+ [...] 01:00 PM AMBULATORY - REHAB MEDICIN E [facility] November 25, 2024 10:45 AM AMBULATORY - MEDICINE [facility] November 27, 2024 10:30 AM AMBULATORY - SURGERY [facility] November 27, 2024 11:15 AM AMBULATORY - MEDICINE [facility] Active, Pending, and Scheduled Orders This section includes a listing of several types of active, pending, and scheduled orders, including clinic medications orders, diagnostic test orders, procedure orders and consult orders; where the start date of the order is 45 days before the date of the Encounter or 45 days after the date of theEncounter. The data comes from all [place] treatment facilities. Test Date/Time Test Type Test Details Facility Name Oct 04, 2024 04:10 PM Consult Order OT OUTPATI ENT CONSULT STL Cons Ambulatory Nurse's Choice [facility] Lab Results: +/- 30 days of [...] Range Comment Oct 02, 2024 12:[address] [facility] HGA1C Specimen Type: BLOOD No comment entered. Ordering Provider: Mina CORDOAV Report Released Date/Time: Oct 02, 2024 11:59 AM Reporting Lab: [facility] [address] [facility] [address] Performing Lab: [place] [id number] [facility] [address] HGA1C 7.0 H 4.0-6.0 Oct 02, 2024 12:[address] [facility] FERRITIN Specimen Type: SERUM No comment entered. Ordering Provider: Mina CORDOVA Report Released Date/Time: Oct 02, 2024 11:59 AM Reporting Lab: [facility] [address] [facility] [address] Performing Lab: [place] [address] [facility] [address] FERRITIN 37.12 ng/mL 22-275 Oct 02, 2024 12:[address] [facility] IRON/TIBC PROFILE Specimen Type: SERUM Comment: No hemolysis noted. Ordering Provider: Mina CORDOVA Report Released Date/Time: Oct 02, 2024 11:59 AM Reporting Lab: [facility] [address] [facility] [address] Performing Lab: [facility] [address] [place] [address] TIBC 306 ug/dL 250-450 TRANSFERRIN 245 mg/dL 163-344 IRON SATURATION 19 L 20-50 IRON 59 ug/dL L 65-175 Oct 02, 2024 12:[address] [facility] MICRAL/CREAT PROFILE (STL) Specimen Type: URINE No comment entered. Ordering Provider: Mina CORDOVA Report Released Date/Time: Oct 02, 2024 11:59 AM Reporting Lab: [address] [address] Performing Lab: [address] [address] URINE ALBUMIN (PB-STL) 19.0 mg/L uACR (STL) 53 mg/g H 0-29 CREATININE URINE/OTHERS 35.6 mg/dL L 63-166 Oct 02, 2024 12:[address] [facility] COMPREHENSIVE METABOLIC PANEL Specimen Type: PLASMA Comment: No hemolysis noted. Ordering Provider: Mina CORDOVA Report Released Date/Time: Oct 02, 2024 11:59 AM Reporting Lab: [facility] [address] [facility] [address] Performing Lab: [address] [address] CREATININE 1.03 mg/dL 0.7-1.3 UREA NITROGEN 16.2 [...] 71.2 >60 Oct 02, 2024 12:[address] [facility] CBC Specimen Type: BLOOD No comment entered. Ordering Provider: Mina CORDOVA Report Released Date/Time: Oct 02, 2024 11:59 AM Reporting Lab: [facility] [address] [facility] [address] Performing Lab: [facility] [address] [facility] [address] WBC 10.7 10*3/uL 3.6-11.2 RBC 3.97 10*6/uL [...] 03:10 PM QUIT TOBACCO >7 YEARS AGO [facility] Tobacco Use History This section includes a history of the smoking, or tobacco-related health factors, that were collected on or before the date of the Encounter. The data comes from the [place] facility where the Encounter took place. Date/Time Smoking Status/Tobacco Use Comment F acility May 20, 2014 09:22 AM QUIT TOBACCO >7 YEARS AGO [facility] Feb 19, 2013 09:01 AM QUIT TOBACCO >7 YEARS AGO [facility] December 20, 2006 08:06 AM QUIT TOBACCO >7 YEARS AGO [facility] Jun 12, 2006 09:00 AM CURRENT NON-TOBACC O USER-HX OF USE [facility] Jun 12, 2006 09:00 AM TOBACCO TERMINATION STAGE [facility] December 07, 2005 11:12 AM CURRENT NON-TOBACC O USER-HX OF USE [facility] December 07, 2005 11:12 AM TOBACCO TERMINATION STAGE [facility] Mar 21, 2005 01:46 PM CURRENT NON-TOBACC O USER-HX OF USE [facility] Mar 21, 2005 01:46 PM TOBACCO TERMINATION STAGE [facility] Mar 03, 2004 09:58 AM CURRENT NON-TOBACC O USER-HX OF USE [facility] Mar 03, 2004 09:58 AM TOBACCO TERMINATION STAGE [facility] Apr 21, 2003 09:25 AM CURRENT NON-TOBACC O USER-HX OF USE QUIT [address] [place] [address] Apr 21, 2003 09:25 AM CURRENT NON-TOBACC O USER-RECENTLY QUIT quit [address] [place] [address] Apr 21, 2003 09:25 AM TOBACCO USE quit [address] [place] [address] Nov 07, 2002 09:14 AM CURRENT NON-TOBACC O USER-RECENTLY QUIT quit [address] [place] [address] Nov 07, 2002 09:14 AM TOBACCO USE quit [address] [place] [address] Nov 08, 2001 08:09 AM CURRENT NON-TOBACC O USER-HX OF USE quit 20 yrs. ago [facility] Advance Directives: All historical and current Section [...] ADVANCE DIRECTIVE DISCUSSION Jaqueline LEON [facility] Jun 12, 2014 ADVANCE DIRECTIVE DISCUSSION GÓMEZ ESPINAL [facility] Radiology Reports: +/- 30 days of the [...] comes from all [place] treatment facilities. Date/Time Radiology Report Provider Source Oct 02, 2024 01:47 PM SHOULDER,LEFT,2 OR MORE VIEWS: ZHENGVAUGHN [id number] -[id number] M Ex Date: OCT 02, 2024@13:47 Req Phys: JAY CORDOVA Pat Loc: [facility] PACT STRIPES RES 3 (Req Img Loc: -MAIN RADIOLOGY SUITE Service: [facility], [facility] [address] [place] [address] (Case [id number] COMPLETE) SHOULDER,LEFT,2 OR MORE VIEWS (RAD Detailed) CPT:71082 Proc Modifiers : LEFT Reason for Study: 1month of pain L shoulder Clinical History: Report Status: Verified Date Reported: OCT 04, 2024 Date Verified: OCT 04, 2024 Puppet Engineer E-Sig:/ES/Sav Easton MD Report: FINDINGS: No significant bone or joint abnormality is demonstrated. No significant acute finding is seen. Impression: Negative. Primary Interpreting Staff: Sav Easton MD, Radiologist (Puppet Engineer) /SA[facility] Encounter Notes: All associated encounter notes This section contains the clinical notes associated to the Encounter. Date/Time Encounter Note(s) Provider Source Oct 21, 2024 04:16 PM PLASTIC SURGERY NO TE: LOCAL TITLE: PLASTIC SURGERY LEG/FOOT ULCER ASSESSMENT STL STANDARD TITLE: PLASTIC SURGERY NOTE DATE OF NOTE: OCT 21, 2024@16:16 ENTRY DATE: OCT 21, 2024@16:16:46 AUTHOR: ROCCO SANCHEZ EXP COSIGNER: URGENCY: STATUS: COMPLETED Patient is well-known to this provider. He is seen for malignant melanoma of the left forearm with a split-thickness skin graft taken from the left thigh. The donor site wound is now apparently completely healed. We did did not place another Tegaderm on it as it looks like it is healed over working to have him keep it moist with moisturizer and just a Telfa dressing for a few days to avoid rubbing but is essentially healed. The graft itself is well-healed and thickening up nicely starting to show contraction. 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 We set him up to OT to get a elbow protector and advised him to wear this is much as possible especially at night and see if this helps. He need not return to see us less he has a problem I anticipate he is going to do fine. His sentinel node was negative and the margins on his excision were completely clear. /yesenia/ ROCCO SANCHEZ PA-C, CWS Physician Fish House Worker, Plastic Surgery Signed: 10/21/2024 16:19 ROCCO SANCHEZ [facility]
--- OUTSIDE RECORDS SUMMARY | 2024-10-22 12:15 | XMS_ITS | Encounter Summary ---
Author Name [facility] [place] [facility] [place] Address [address] [place] [address] Care Team Providers Care Health And Wellness Coach Name Role Phone HUONG ROWELL Primary Care [...] COURTNEY PLUS 1 Jul 24, 2015 [id number] [phone] PAYAM GONZALEZ PATIENT ANTHE[place] FEP PREFERRED PROVIDER ORGANIZAT ION (PPO) FEP STAND COURTNEY PLUS 1 Jul 24, 2015 106 [id number] [phone] PAYAM GONZALEZ PATIENT [place] F[place] PREFERRED PROVIDER ORGANIZAT ION (PPO) FEP STAND COURTNEY PLUS 1 Jul 24, 2015 106 [id number] [phone] PAYAM GONZALEZ PATIENT [employer] FEP RETIREE [id number] Jan 22, 2004 105 [id number] PAYAM GONZALEZ PATIENT [place] F[place] PREFERRED PROVIDER ORGANIZAT ION (PPO) FEP STAND COURTNEY PLUS 1 Jul 24, 2015 106 [id number] [phone] PAYAM GONZALEZ PATIENT [place] FEP PRESCRIPT ION [id number] Jan 22, 2004 [id number] [phone] PAYAM GONZALEZ PATIENT MEDICARE (WNR) MEDICARE (M) PART B Jan 22, 2004 PART B [id number] PAYAM GONZALEZ PATIENT MEDICARE (WNR) MEDICARE (M) PART A Jan 22, 2004 PART A [id number] [phone] PAYAM GONZALEZ PATIENT MEDICARE (WNR) MEDICARE (M) PART A Jan 22, 2004 PART A [id number] [phone] PAYAM GONZALEZ PATIENT MEDICARE (WNR) MEDICARE (M) PART B Jan 22, 2004 PART B [id number] PAYAM GONZALEZ PATIENT Selected Encounter This section includes the information on record at [place] for the Encounter. Date/Time Encounter Type Encounter Description Reason Provider Source Oct 02, 2024 11:15 AM OFFICE O/P EST MOD 30 MIN PRIMARY CARE/MEDICINE ICD-10-CM I10 Essential (primary) hypertension INDER ROWELL Encounter Template Text not used by [place] Assessments - Encounter Diagnoses This section includes the primary and secondary diagnoses documented for the Encounter. 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 This section includes future appointments and future orders which are active, pending or scheduled. Future Appointments This section includes appointments that were scheduled to occur 6 months from the date of the Encounter, up to a maximum of 20 appointments. The data comes from all [facility]. Appointment Date/Time Appointment Type Appointme nt Facility Name Oct 21, 2024 01:30 PM AMBULATORY - SURGERY [facility] Oct 21, 2024 02:30 PM AMBULATORY - SURGERY [facility] Oct 29, 2024 01:00 PM AMBULATORY - REHAB MEDICIN E [facility] November 25, 2024 10:45 AM AMBULATORY - MEDICINE [facility] November 27, 2024 10:30 AM AMBULATORY - SURGERY [facility] November 27, 2024 11:15 AM AMBULATORY - MEDICINE [facility] Active, Pending, and Scheduled Orders This section includes a listing of several types of active, pending, and scheduled orders, including clinic medications orders, diagnostic test orders, procedure orders and consult orders; where the start date of the order is 45 days before the date of the Encounter or 45 days after the date of theEncounter. The data comes from all [facility]. Test Date/Time Test Type Test Details Facility Name Oct 04, 2024 04:10 PM Consult Order OT OUTPATI ENT CONSULT [facility] Cons [facility] Lab Results: +/- 30 days of the encounter This section includes the Chemistry and Hematology Lab Results on record with [place] for the patient. Radiology Reports and Pathology Reports are provided separately, in subsequent sections. Lab Results This section contains the Chemistry/Hematology Results that were resulted 30 days before or 30 daysafter the date of the Encounter. Date/Time Source Result Type Result - Unit Interpretation Reference Range Comment Oct 02, 2024 12:09 PM [facility] HGA1C Specimen Type: BLOOD No comment entered. Ordering Provider: Mina CORDOVA Report Released Date/Time: Oct 02, 2024 11:59 AM Reporting Lab: [facility] [address] [facility] [address] Performing Lab: [facility] [address] [facility] [address] HGA1C 7.0 H 4.0-6.0 Oct 02, 2024 12:09 PM [facility] FERRITIN Specimen Type: SERUM No comment entered. Ordering Provider: Mina CORDOVA Report Released Date/Time: Oct 02, 2024 11:59 AM Reporting Lab: [address] [address] Performing Lab: [address] [address] FERRITIN 37.12 ng/mL 22-275 Oct 02, 2024 12:09 PM [facility] IRON/TIBC PROFILE Specimen Type: SERUM Comment: No hemolysis noted. Ordering Provider: Mina CORDOVA Report Released Date/Time: Oct 02, 2024 11:59 AM Reporting Lab: [address] [address] Performing Lab: [address] [address] TIBC 306 ug/dL 250-450 TRANSFERRIN 245 mg/dL 163-344 IRON SATURATION 19 L 20-50 IRON 59 ug/dL L 65-175 Oct 02, 2024 12:09 PM [facility] MICRAL/CREAT PROFILE (STL) Specimen Type: URINE No comment entered. Ordering Provider: Mina CORDOVA Report Released Date/Time: Oct 02, 2024 11:59 AM Reporting Lab: [facility] [address] [place] [phone] Performing Lab: [address] [address] URINE ALBUMIN (PB-STL) 19.0 mg/L uACR (STL) 53 mg/g H 0-29 CREATININE URINE/OTHERS 35.6 mg/dL L 63-166 Oct 02, 2024 12:09 PM [facility] COMPREHENSIVE METABOLIC PANEL Specimen Type: PLASMA Comment: No hemolysis noted. Ordering Provider: Mina CORDOVA Report Released Date/Time: Oct 02, 2024 11:59 AM Reporting Lab: [facility] [address] [facility] [address] Performing Lab: [address] [address] CREATININE 1.03 mg/dL 0.7-1.3 UREA NITROGEN 16.2 [...] 71.2 >60 Oct 02, 2024 12:09 PM [facility] CBC Specimen Type: BLOOD No comment entered. Ordering Provider: Mina CORDOVA Report Released Date/Time: Oct 02, 2024 11:59 AM Reporting Lab: [facility] [address] [place] [phone] Performing Lab: [address] [address] WBC 10.7 10*3/uL 3.6-11.2 RBC 3.97 10*6/uL [...] 10*3/uL 0.00-0.60 BASOPHILS, ABSOLUTE 0.03 10*3/uL 0.00-0.20 Vital Signs: All taken on the encounter date This section contains inpatient and outpatient Vital Signs collected on the date of the Encounter. Date/Time Temperature Pulse Blood Pressure Respiratory Rate SP02 Pain Height Weight Body Mass Index Source Oct 02, 2024 11:20 AM 132/58 [facility] Oct 02, 2024 11:15 AM 97.9 62 147/64 17 99 2 171.6 30 [facility] Social History: Smoking Status (Most current) and Tobacco Use (All prior to encounter date) This section includes the most current, and the historical, smoking and tobacco- related health factors from the [place] facility where the Encounter took place. Current Smoking Status This section includes the most current smoking, or tobacco-related health factor, from the [place] facility where the Encounter took place. Date/Time Current Smoking Status Comment Leonela franco Apr 27, 2023 03:00 PM VA-TOBACCO NEVER USED [facility] Tobacco Use History This section includes a history of the smoking, or tobacco-related health factors, that were collected on or before the date of the Encounter. The data comes from the [place] facility where the Encounter took place. Date/Time Smoking Status/Tobacco Use Comment F acility Mar 11, 2022 10:30 AM VA-TOBACCO NEVER USED [facility] Mar 26, 2021 03:00 PM VA-TOBACCO FORMER USER [facility] Mar 26, 2021 03:00 PM VA-TOBACCO QUIT 15 YRS OR MORE [facility] Oct 16, 2019 10:22 AM VA-TOBACCO NEVER USED [facility] Nov 13, 2017 02:35 PM VA-TOBACCO FORMER USER [facility] Nov 13, 2017 02:35 PM VA-TOBACCO QUIT 15 YRS OR MORE [facility] Oct 24, 2017 01:47 PM QUIT TOBACCO >7 YEARS AGO [facility] Advance Directives: All historical and current Section Date Range: From patient's date of to the date document was created. This section includes ALL of a patient's completed or amended [place] Advance and Rescinded Directives. The entries below indicate that a directive exists for the patient, but an actual copy is not included with this document. The data comes from all [place] facilities. Date Advance Directives Provider Source Mar 26, 2021 ADVANCE DIRECTIVE DISCUSSION Jaqueline LEON [facility] Jun 12, 2014 ADVANCE DIRECTIVE DISCUSSION GÓMEZ ESPINAL [facility] Radiology Reports: +/- 30 days of [...] the Encounter. The data comes from all [place] treatment facilities. Date/Time Radiology Report Provider Source Oct 02, 2024 01:47 PM SHOULDER,LEFT,2 OR MORE VIEWS: GONZALEZVAUGHN [phone] M Exm Date: OCT 02, 2024@13:47 Req Phys: KNEECHRISTIANO DUMONT Pat Loc: -[place] PACT STRIPES RES 3 (Req Img Loc: -MAIN RADIOLOGY SUITE Service: [address] [address] (Case [id number] COMPLETE) SHOULDER,LEFT,2 OR MORE VIEWS (RAD Detailed) CPT:36544 Proc Modifiers : LEFT Reason for Study: 1month of pain L shoulder Clinical History: Report Status: Verified Date Reported: OCT 04, 2024 Date Verified: OCT 04, 2024 Biomedical Photographer E-Sig:/ES/Sav Easton MD Report: FINDINGS: No significant bone or joint abnormality is demonstrated. No significant acute finding is seen. Impression: Negative. Primary Interpreting Staff: Sav Easton MD, Radiologist (Biomedical Photographer) /QMSAV ORDONEZ [facility] Encounter Notes: All associated encounter notes This section contains the clinical notes associated to the Encounter. Date/Time Encounter Note(s) Provider Source Oct 04, 2024 04:08 PM PHYSICIAN LETTERS: LOCAL TITLE: TEST RESULT GENERAL LETTER STL STANDARD TITLE: PHYSICIAN LETTERS DATE OF NOTE: OCT 04, 2024@16:08 ENTRY DATE: OCT 04, 2024@16:08:12 AUTHOR: CHRISTIANO CORDOVA EXP COSIGNER: HUONG ROWELL URGENCY: STATUS: COMPLETED [address] [address] OCT 04, 2024 VAUGHN GONZALEZ [address] [place] [address] Dear Vaughn Gonzalez, I would like to update you on your recent test results. OTHER TEST RESULTS RADIOLOGY (NON-INVASIVE TEST RESULTS): XRAY shoulder: FINDINGS: No significant bone or joint abnormality is demonstrated. No significant acute finding is seen. I can put in referral for PT to see you. Please let us know if you have other questions or concerns FUTURE APPOINTMENTS: 10/21/2024 13:30 [facility]-AUDIO MAROON TECH 10/21/2024 14:30 IRIS-PLASTIC LEG ULCER COUP 11/25/2024 10:45 [facility] 11/27/2024 10:30 IR[facility]-OPHTH EYE PLEITEZ 11/27/2024 11:15 [facility] Sincerely, Christiano Cordova MD Resident Physician VAUGHN GONZALEZ [facility] Oct 04, 2024 10:15 AM PHYSICIAN LETTERS: LOCAL TITLE: TEST RESULT GENERAL LETTER STL STANDARD TITLE: PHYSICIAN LETTERS DATE OF NOTE: OCT 04, 2024@10:15 ENTRY DATE: OCT 04, 2024@10:15:50 AUTHOR: CHRISTIANO CORDOVA EXP COSIGNER: HUONG ROWELL URGENCY: STATUS: COMPLETED [address] [address] OCT 04, 2024 VAUGHN GONZALEZ [address] [place] [phone] Dear Vaughn Gonzalez, I would like to update you on your recent test results. HEMOGLOBIN A1C - Gives us information about your diabetes (sugar or glucose) control over the past 3 months. Your target is to keep your A1C below 10 %. HGA1C 7.0 H % 10/02/2024 12:09 The results are similar to previous values and not a clinical concern. CBC - A complete blood count (CBC) gives important information about the kinds and numbers of cells in the blood, especially red blood cells, white blood cells, and platelets. HGB 12.0 L g/dL 10/02/2024 12:09 HEMATOCRIT 35.9 % L (10/02/24 12:09) PLT 282 10*3/uL 10/02/2024 12:09 WHITE BLOOD COUNT 10.7 10*3/uL (10/02/24 12:09) The results are similar to previous values and not a clinical concern. IRON STUDIES - Test to show iron deficiency. IRON 59 L ug/dL 10/02/2024 12:09 TIBC 306 ug/dL 10/02/2024 12:09 IRON SATURATION 19 L %SAT 10/02/2024 12:09 FERRITIN 37.12 ng/mL 10/02/2024 12:09 These results are abnormal. You have slightly low iron which is causing your hemoglobin to be low. I would recommend eating foods high in iron over the next couple months to increase your iron stores CHEM 7 - This is important information about the current status of your kidneys, liver, and electrolyte and acid/base balance as well as of your blood sugar and blood proteins. SODIUM 138 mEq/L 10/02/2024 12:09 POTASSIUM 3.6 mEq/L 10/02/2024 12:09 CHLORIDE 105 mEq/L 10/02/2024 12:09 UREA NITROGEN 16.2 mg/dL 10/02/2024 12:09 CREATININE 1.03 mg/dL 10/02/2024 12:09 CALCIUM 8.7 mg/dL 10/02/2024 12:09 CARBON DIOXIDE 20 L mEq/L 10/02/2024 12:09 GLUCOSE 169 H mg/dL 10/02/2024 12:09 EGFR (CKD-EPI 2020) 71.2 10/02/2024 12:09 These readings are within normal limits. FUTURE APPOINTMENTS: 10/21/2024 13:30 IRIS-AUDIO MAROON TECH 10/21/2024 14:30 IRIS-PLASTIC LEG ULCER COUP 11/25/2024 10:45 [facility] 11/27/2024 10:30 IRIS-OPHTH EYE PLEITEZ 11/27/2024 11:15 [facility] Sincerely, Christiano Cordova MD Resident Physician VAUGHN GONZALEZ [facility] Oct 02, 2024 12:03 PM PRIMARY CARE NOTE: LOCAL TITLE: PRIMARY CARE PROVIDER ESTABLISHED VISIT ST STANDARD TITLE: PRIMARY CARE NOTE DATE OF NOTE: OCT 02, 2024@12:03 ENTRY DATE: OCT 02, 2024@12:03:30 AUTHOR: CHRISTIANO CORDOVA EXP COSIGNER: HUONG ROWELL URGENCY: STATUS: COMPLETED PRIMARY CARE PROVIDER ESTABLISHED VISIT ST Has ADDENDA 84 year-old MALE with a past medical history of 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 here for routine f/u Last visit: Apr 2024 HISTORY OF PRESENT ILLNESS/INTERVAL HISTORY: Overall, pt doing well. Was diagnosed with melnoma Left arm and had surgery since last visit Melanoma: Left arm. underwent surgery Jul 31. Skin graft from left thigh. healing well. Left thigh with a small amount of drainage. No fevers or chills. no increased pain. has follow up today. LN were negative for metastatic disease HTN: Mostly SBP 150s. on Amlo 5 and lisinopril 40 rx by outside PCP. Willing to ask whether they would increase his regimen Neuropathy: ongoing. Waxing and waning has been attributed to DMII. Prev on gabapentin where he reportedly had Hypotension so he does not want to try that again. Does not want to try lyrica. okay to keep watching Left Knee OA: get injections. Last one was january. Wants to go see outside Ortho again. wants to hold off on PT Left shoulde rpain. Every since surgery. Thinks he may have slept on it weird back then. painful with certain movements. okay to get XR ROS: Negative except as mentioned in HPI SH:nc FH: nc PMH: 1) Benign essential hypertension (SNOMED CT 7529823) comment: amlodipine 2.5 mg 2) Dyspepsia 3) Diverticulosis Colon comment: colectomy-colonoscopy done February 2010--2019 4) Hemorrhoids 5) Allergic Rhinitis 6) Skin Cancer 7) Benign prostatic hyperplasia 8) B12 deficiency monitoring status (SNOMED CT 247638385) 9) Incisional hernia without mention of obstruction or gangrene (ICD-9-CM 553.21) comment: ventral hernia repair jun 10 2013. 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 NEURO: Moving all extremities spontaneously, grossly nonfocal PSYCH: Pleasant, cooperative LABS/DIAGNOSTICS: CBC: WBC: 8.1 10*3/uL (07/03/24 11:25) RBC: 3.72 10*6/uL L (07/03/24 11:25) HGB: HGB 11.6 L g/dL 07/03/2024 11:25 HCT: 33.8 % L (07/03/24 11:25) PLT: PLT 252 10*3/uL 07/03/2024 11:25 BMP: GLU:GLUCOSE 175 H mg/dL 07/03/2024 11:25 BUN:15.4 mg/dL (07/03/24 11:25) CRE:CREATININE 1.17 mg/dL 07/03/2024 11:25 NA: SODIUM 140 mEq/L 07/03/2024 11:25 K: POTASSIUM 4.3 mEq/L 07/03/2024 11:25 CL: 106 mEq/L (07/03/24 11:25) CO2:CARBON DIOXIDE 25 mEq/L 07/03/2024 11:25 Vaccinations: ADMINISTERED Immunization Series Date Facility Reaction Info COVID-19 (MODERNA), MRNA, LNP-S,* 3 07/12/2021 [facility] #* COVID-19 (MODERNA), MRNA, LNP-S,* 2 10/24/2020 [facility] <C> COVID-19 (MODERNA), MRNA, LNP-S,* 1 09/27/2020 [facility] <C> INFLUENZA (HISTORICAL) 06/27/2003 [facility] INFLUENZA, HIGH-DOSE, QUADRIVALE* 04/27/2023 [facility] <C> INFLUENZA, HIGH-DOSE, TRIVALENT,* 04/25/2024 [facility]* INFLUENZA, SPLIT VIRUS, QUADRIVA* 05/20/2019 [facility]* INFLUENZA, SPLIT VIRUS, QUADRIVA* 05/04/2018 [facility] INFLUENZA, SPLIT VIRUS, QUADRIVA* 04/20/2017 [facility]* INFLUENZA, SPLIT VIRUS, TRIVALEN* 06/07/2016 [facility] INFLUENZA, SPLIT VIRUS, TRIVALEN* 06/07/2016 [facility] INFLUENZA, UNSPECIFIED FORMULATI* 05/11/2022 [facility]* INFLUENZA, UNSPECIFIED FORMULATI* 05/04/2021 [facility]* INFLUENZA, UNSPECIFIED FORMULATI* 05/06/2020 [facility]* INFLUENZA, UNSPECIFIED FORMULATI* 05/27/2015 [facility]* INFLUENZA, UNSPECIFIED FORMULATI* 05/13/2014 [facility] INFLUENZA, UNSPECIFIED FORMULATI* [facility]* INFLUENZA, UNSPECIFIED FORMULATI* 06/20/2012 [facility] * <C> INFLUENZA, UNSPECIFIED FORMULATI* 05/06/2011 office INFLUENZA, UNSPECIFIED FORMULATI* 05/27/2010 [facility] INFLUENZA, UNSPECIFIED FORMULATI* 05/26/2009 [facility]* INFLUENZA, UNSPECIFIED FORMULATI* 05/10/2008 [facility]* <C> INFLUENZA, UNSPECIFIED FORMULATI* 05/04/2007 [facility]* INFLUENZA, UNSPECIFIED FORMULATI* 06/12/2006 [facility]* INFLUENZA, UNSPECIFIED FORMULATI* 07/05/2005 [facility]* INFLUENZA, UNSPECIFIED FORMULATI* 06/27/2003 [facility]* PNEUMOCOCCAL CONJUGATE PCV 13 01/08/2015 [facility]* PNEUMOCOCCAL, UNSPECIFIED FORMUL* 03/03/2004 [facility]* RESPIRATORY SYNCYTIAL VIRUS (RSV* 08/03/2023 [facility]* TD(ADULT) UNSPECIFIED FORMULATION 02/28/2012 [facility]* <C> TD(ADULT) UNSPECIFIED FORMULATION 03/28/2002 [facility]* ZOSTER LIVE 11/24/2008 [facility]* ZOSTER RECOMBINANT 1 10/11/2018 [facility]* CONTRAINDICATED No data available REFUSED ======= Immunization Date Facility Info COVID-19 (PFIZER), MRNA, LNP-S, * 10/02/2024 [facility] <I> COVID-19 (PFIZER), MRNA, LNP-S, * 09/26/2023 [facility] <I> <C> See the Detailed Immunizations Health Summary Component[DIM] for Comments <I> See the Detailed Immunizations Health Summary Component[DIM] for Additional Information * Value is truncated; see the Detailed Immunizations Health Summary Component[DIM] for complete text Outside immunizations: Assessment/Plan Mr. Gonzalez is a 84-year-old man with # Local L arm melenoma Resection 07/2024, requiring skin graft. Healing well. Negative LN - F/u w/ derm and plastic surgery # L shoulder pain Going on since Aug 2024. After surgery, no injuries but had to sleep with arm up. Also consider related ton LN dissection (which was negative for malignancy) - Possible RTC injury - XR then PT # Anemia Hgb 11.6, no evidence of bleeding -CBC and iron panel # DM2 complicated by neuropathy a1c ~7 on outside labs. - continue metformin 1000 SA/empagliflozin 5 mg BID - DM shoes with inserts - Micral completed 09/2024. Foot exam completed 09/2024 # b12 deficiency - continue B12 supplementation - has labs next month at OSH PCP # Hypothyroidism - continue levothyroxine 75 mcg daily # L knee OA - f/u Dr. Becker [facility]o for steroid inj prn - Declines ortho # HTN SBP 140s at home. No falls. - continue lisinopril 40 mg daily - continue amlodipine 5 mg daily. Discuss with PCP to increase # AR: continue loratadine 10 mg daily # AKs scalp, rosacea - f/u derm as above # hemorrhoids: prn phenylephrine supp. psyllium # ventral wall hernia longstanding and reducible - Rx for another binder (same one) as his is years old and strectched out # GERD no sx on PPI. - continue omeprazole # HME Through outside PCP Ordered: CMP, CBC Iron, Micral, Foot exam. Shoulder XR Follow Up: XR - consider PT RTC: 3mo /joss Cordova MD Resident Physician Signed: 10/02/2024 21:52 /joss Rowell MD, [facility] Staff Physician, Internal Medicine, Primary Care Cosigned: 10/04/2024 21:40 10/02/2024 ADDENDUM STATUS: COMPLETED PAVE Foot Check - L,N,P,PH,PO,PT,U: A complete foot check was completed at [...] diminished) SENSORY CHECK: Includes 10 gram Monofilament ([place]) test of sensation. Intact (Greater than or equal to 80% of sites checked) Abnormal (Less than 80% of sites checked): Intact LOW-RISK: LOW RISK INFORMATION PROVIDED: 1. Advised patient not to walk barefoot. 2. Explained the importance of daily foot checks for changes. 3. Stressed the importance of daily foot hygiene, including bathing and complete drying. /joss Cordova MD Resident Physician Signed: 10/02/2024 21:53 /joss Rowell MD, [facility] Staff Physician, Internal Medicine, Primary Care Cosigned: 10/04/2024 21:41 10/04/2024 ADDENDUM STATUS: COMPLETED attempted to call patient regarding lab results. Everything looked good but slightly low iron. Sent letter explaining it would be best to increase foods that contain iron. F/u in 6mo and should repeat iron and CBC then /yesenia/ Christiano Cordova MD Resident Physician Signed: 10/04/2024 10:20 /yesenia/ Huong Rowell MD, [facility] Staff Physician, Internal Medicine, Primary Care Cosigned: 10/04/2024 21:41 10/04/2024 ADDENDUM STATUS: COMPLETED Medicine attending: I saw the patient with the resident physician. I discussed the patient with the resident in detail and reviewed pertinent diagnostic data in the electronic medical record. I agree with the resident's documented history, exam, assessment, and plan. /yesenia/ Huong Rowell MD, [facility] Staff Physician, Internal Medicine, Primary Care Signed: 10/04/2024 21:42 CHRISTIANO CORDOVA [facility] Oct 02, 2024 11:16 AM NURSING NOTE: LOCAL TITLE: V15 PACT FACE TO FACE NOTE ST STANDARD TITLE: NURSING NOTE DATE OF NOTE: OCT 02, 2024@11:16 ENTRY DATE: OCT 02, 2024@11:16:51 AUTHOR: KATTY JANE COSIGNER: URGENCY: STATUS: COMPLETED Provider Visit: Patient Identifiers : Full Name Date of Reason for visit: Established Follow-Up Mode of Arrival: Ambulatory Allergy Review: Patient has answered NKA Allergy list reviewed and remains current. Recent Vital Signs: Temperature: 97.9 F [36.6 C] (10/02/2024 11:15) Pulse: 62 (10/02/2024 11:15) Respiration: 17 (10/02/2024 11:15) B/P: 147/64 (10/02/2024 11:15) Pain: 2 (10/02/2024 11:15) Wt: 171.6 lb [77.84 kg] (10/02/2024 11:15) Ht: 63 in [160.0 cm] (08/21/2024 09:55) BMI: 30.5 POX: 99% (10/02/2024 11:15) secondary b/p: 132/58 Would you like to discuss any personal problem, family problem, alcohol use, drug use, or a mental or emotional illness? No My [facility] ([facility]), please select appointment type: Face to face: Yes- Done Contact provided Primary Care phone number and encouraged to call if any questions or concerns. Review that after hours nurse line [id number] and emergency room are available 13/02 for patient use. Contact verbalized good understanding. No notification required for this note. COVID-19 Immunization - L,N,P,PH,U: Refused Pfizer Monovalent COVID-19 vaccine Immunization: COVID-19 (PFIZER), MRNA, LNP-S, PF, KAYCE-SUCROSE, 30 MCG/0.3 ML (AGES 12+ YEARS) Refusal Reason: PATIENT DECISION Patient refuses all immunization(s) in the COVID-19 group Date Documented: 10/02/24 11:17 Homelessness/Food Insecurity Screen - DI,L,N,P,PH,PS,S,U: In the past 2 months, have you been living in stable housing that you own, rent, or stay in as part of a household? Yes - Living in stable housing. Are you worried or concerned that in the next 2 months you may NOT have stable housing that you own, rent, or stay in as part of a household? No - Not worried about housing near future The reports the following: Within the past 12 months, you worried whether your food would run out before you got money to buy more. Never true Within the past 12 months, the food you bought just didn't last and you didn't have money to get more. Never true [facility] MAP: PERSONAL HEALTH PLAN INVENTORY & MAP == [facility]'s Response: and family, relationship with god /yesenia/ [facility]ATTY [facility]ANE LICENSED PRACTICAL NURSE Signed: 10/02/2024 11:20 [facility]
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
--- OUTSIDE RECORDS SUMMARY | 2024-10-22 12:15 | XMS_ITS | Clinical Summary ---
Author Organization [facility] Address [address] [place] [address] Care Team Providers Care Motor Express Clerk Name Role Phone Unavailable Primary Care Provider Unavailabl e Source Comments [facility],non-owned Affiliates and Associated Physician Practices is amultiple site organization consisting of ambulatory clinics and hospital sitesin [place], [place], [place] and [place]. This disclosure is being madepursuant to the Care Everywhere program and may not contain all information available regarding this patient. Last updated 18.[facility] [employer] Social History Tobacco Use Types Packs/Day Years Used Date Smoking Tobacco: Never Assessed Sex and Gender Information Value Date Recorded Sex Assigned at Not on file Gender Identity Not on file Sexual Orientation Not on file Plan of Treatment Health Maintenance Due Date Last Done Comments MEDICARE AWV 12 MONTHS 1940 DTAP/TDAP/TD VACCINES (1 - Tdap) 1958 PNEUMOCOCCAL VACCINE 50+ (1 of 1 - PCV) 1989 ZOSTER VACCINE (1 of 2) 1989 Respiratory Syncytial Virus (RSV) Vaccine Pt: or over 60 yrs (1 - 1-dose 75+ series) 2014 COVID-19 VACCINE (2023-2 5 season) 2024 INFLUENZA VACCINE (#1) 2024 DEPRESSION SCREENING 07/24/2024 HEPATITIS B VACCINE Aged Out No longe r eligible based on patient's age to complete this topic HIB VACCINE Aged Out No longer eligi ble based on patient's age to complete this topic HPV VACCINE Aged Out No longer eligi ble based on patient's age to complete this topic MENINGOCOCCAL (Group B) VACC INE SHARED DECISION-MAKING Aged Out No longer eligibl e based on patient's age to complete this topic MENINGOCOCCAL GROUPS A/C/Y/W VACCINE Aged Out No longer eligible b ased on patient's age to complete this topic
--- OUTSIDE RECORDS SUMMARY | 2024-10-22 12:15 | XMS_ITS | Encounter Summary ---
Author Name [facility] [place] [facility] [place] Address [address] [place] [address] Care Team Providers Care Heat Seal Operator Name Role Phone HUONG ROWELL Primary Care [...] COURTNEY PLUS 1 Jul 24, 2015 106 [id number] [phone] PAYAM ZHENG PATIENT ANTHEM [employer] [place] FEP PREFERRED PROVIDER ORGANIZAT ION (PPO) FEP STAND COURTNEY PLUS 1 Jul 24, 2015 106 [id number] [phone] PAYAM ZHENG PATIENT AN[place] F[place] PREFERRED PROVIDER ORGANIZAT ION (PPO) FEP STAND COURTNEY PLUS 1 Jul 24, 2015 106 [id number] [phone] PAYAM ZHENG PATIENT [employer] FEP RETIREE [id number] Jan 22, 2004 105 [id number] PAYAM ZHENG PATIENT [place] F[place] PREFERRED PROVIDER ORGANIZAT ION (PPO) FEP STAND COURTNEY PLUS 1 Jul 24, 2015 106 [id number] [phone] PAYAM ZHENG PATIENT [place] FEP PRESCRIPT ION [id number] Jan 22, 2004 [id number] PAYAM ZHENG PATIENT MEDICARE (WNR) MEDICARE (M) PART A Jan 22, 2004 PART A [id number] PAYAM ZHENG PATIENT MEDICARE (WNR) MEDICARE (M) PART B Jan 22, 2004 PART B [id number] PAYAM ZHENG PATIENT MEDICARE (WNR) MEDICARE (M) PART A Jan 22, 2004 PART A [id number] [phone] PAYAM ZHENG PATIENT MEDICARE (WNR) MEDICARE (M) PART B Jan 22, 2004 PART B [id number] [phone] PAYAM ZHENG PATIENT Selected Encounter This section includes the information on record at [place] for the Encounter. Date/Time Encounter Type Encounter Description Reason Provider Source Jun 19, 2024 09:00 AM HEARING AID FITTING/CHECKIN G AUDIOLOGY ICD-10-CM H90.3 Sensorineural hearing loss, bilateral OSVALDO CHAPMAN ICA N IHE Encounter Template Text not used by [place] Assessments - Encounter Diagnoses This section includes the primary and secondary diagnoses documented for the Encounter. Date/Time Primary/Secondary Diagnosis Diagnosis Name Provider Source Jun 19, 2024 10:21 AM PRIMARY Sensorineural hearing loss, bilateral TAMMY CHAPMAN CA N [facility] Plan of Treatment: Future Appointments (+ 6 months) and Future Tests (+/- 45 days) The Plan of Treatment section includes future care activities for the patient from all [place] treatmentfacilities. This section includes future appointments and future orders which are active, pending or scheduled. Future Appointments This section includes appointments that were scheduled to occur 6 months from the date of the Encounter, up to a maximum of 20 appointments. The data comes from all [place] treatment facilities. Appointment Date/Time Appointment Type Appointme nt Facility Name Jun 21, 2024 10:00 AM AMBULATORY - SURGERY [facility] Jul 03, 2024 10:20 AM AMBULATORY - SURGERY [facility] Jul 15, 2024 10:00 AM AMBULATORY - SURGERY [facility] Jul 30, 2024 01:00 PM AMBULATORY - NONE . [facility] Jul 31, 2024 08:30 AM AMBULATORY - NONE [facility] Aug 03, 2024 02:29 PM AMBULATORY - MEDICINE [facility] Aug 07, 2024 09:20 AM AMBULATORY - SURGERY [facility] Aug 16, 2024 08:15 AM AMBULATORY - SUR[facility]ERY [facility] Aug 21, 2024 10:00 AM AMBULATORY - SURGERY [facility] Aug 28, 2024 09:00 AM AMBULATORY - MEDICINE [facility] Sep 05, 2024 09:00 AM AMBULATORY - SURGERY [facility] Sep 19, 2024 01:00 PM AMBULATORY - SURGERY [facility] Sep 27, 2024 11:00 AM AMBULATORY - SURGERY [facility] Oct 02, 2024 11:15 AM AMBULATORY - MEDICINE [facility] Oct 02, 2024 01:00 PM AMBULATORY - SURGERY [facility] Oct 21, 2024 01:30 PM AMBULATORY - SURGERY [facility] Oct 21, 2024 02:30 PM AMBULATORY - SURGERY [facility] Oct 29, 2024 01:00 PM AMBULATORY - REHAB MEDICIN E [facility] November 25, 2024 10:45 AM AMBULATORY - MEDICINE [facility] November 27, 2024 10:30 AM AMBULATORY - SURGERY [facility] Active, Pending, and Scheduled Orders This section includes a listing of several types of active, pending, and scheduled orders, including clinic medications orders, diagnostic test orders, procedure orders and consult orders; where the start date of the order is 45 days before the date of the Encounter or 45 days after the date of theEncounter. The data comes from all [place] treatment facilities. Test Date/Time Test Type Test Details Facility Name Jul 31, 2024 01:29 PM Pharmacy - Clinic Medication Order [facility] Lab Results: +/- 30 days of the encounter This section includes the Chemistry and Hematology Lab Results on record with [place] for the patient. Radiology Reports and Pathology Reports are provided separately, in subsequent sections. Lab Results This section contains the Chemistry/Hematology Results that were resulted 30 days before or 30 daysafter the date of the Encounter. Date/Time Source Result Type Result - Unit Interpretation Reference Range Comment Jul 03, 2024 11:25 AM [facility] BASIC METABOLIC PANEL Specimen Type: PLASMA Comment: No hemolysis noted. Ordering Provider: JYOTI SIMOMNS Report Released Date/Time: Jun 24, 2024 11:11 AM Reporting Lab: [address] [address] Performing Lab: [address] [address] CREATININE 1.17 mg/dL 0.7-1.3 UREA NITROGEN 15.4 mg/dL 9.0-25.0 GLUCOSE 175 mg/dL H 72-99 SODIUM 140 meq/L 136-145 POTASSIUM 4.3 meq/L 3.5-5 CHLORIDE 106 meq/L 98-107 CARBON DIOXIDE 25 meq/L 22-31 CALCIUM 9.0 mg/dL 8.4-10.4 EGFR (CKD-EPI 2020) 61.1 >60 Jul 03, 2024 11:25 AM [facility] CBC Specimen Type: BLOOD No comment entered. Ordering Provider: JYOTI SIMMONS Report Released Date/Time: Jun 24, 2024 11:11 AM Reporting Lab: [address] [address] Performing Lab: [address] [address] WBC 8.1 10*3/uL 3.6-11.2 RBC 3.72 10*6/uL [...] and tobacco- related health factors from the [place] facility where the Encounter took place. Current Smoking Status This section includes the most current smoking, or tobacco-related health factor, from the [place] facility where the Encounter took place. Date/Time Current Smoking Status Comment Leonela franco December 07, 2015 03:10 PM QUIT TOBACCO >7 YEARS AGO [facility] Tobacco Use History This section includes a history of the smoking, or tobacco-related health factors, that were collected on or before the date of the Encounter. The data comes from the [place] facility where the Encounter took place. Date/Time Smoking Status/Tobacco Use Comment F acility May 20, 2014 09:22 AM QUIT TOBACCO >7 YEARS AGO [facility] Feb 19, 2013 09:01 AM QUIT TOBACCO >7 YEARS AGO [facility] December 20, 2006 08:06 AM QUIT TOBACCO >7 YEARS AGO [facility] Jun 12, 2006 09:00 AM CURRENT NON-TOBACC O USER-HX OF USE [facility] Jun 12, 2006 09:00 AM TOBACCO TERMINATION STAGE [facility] December 07, 2005 11:12 AM CURRENT NON-TOBACC O USER-HX OF USE [facility] December 07, 2005 11:12 AM TOBACCO TERMINATION STAGE [facility] Mar 21, 2005 01:46 PM CURRENT NON-TOBACC O USER-HX OF USE [facility] Mar 21, 2005 01:46 PM TOBACCO TERMINATION STAGE [facility] Mar 03, 2004 09:58 AM CURRENT NON-TOBACC O USER-HX OF USE [facility] Mar 03, 2004 09:58 AM TOBACCO TERMINATION [facility] Apr 21, 2003 09:25 AM CURRENT NON-TOBACC O USER-HX OF USE QUIT [address] [place] [address] Apr 21, 2003 09:25 AM CURRENT NON-TOBACC O USER-RECENTLY QUIT quit [address] [place] [address] Apr 21, 2003 09:25 AM TOBACCO USE quit [address] [place] [address] Nov 07, 2002 09:14 AM CURRENT NON-TOBACC O USER-RECENTLY QUIT quit [address] [place] [address] Nov 07, 2002 09:14 AM TOBACCO USE quit [address] [place] [address] Nov 08, 2001 08:09 AM CURRENT NON-TOBACC O USER-HX OF USE quit 20 yrs. ago [facility] Advance Directives: All historical and current Section Date Range: From patient's date of to the date document was created. This section includes ALL of a patient's completed or amended [place] Advance and Rescinded Directives. The entries below indicate that a directive exists for the patient, but an actual copy is not included with this document. The data comes from all [facility]. Date Advance Directives Provider Source Mar 26, 2021 ADVANCE DIRECTIVE DISCUSSION Jaqueline LEON [facility] Jun 12, 2014 ADVANCE DIRECTIVE DISCUSSION GÓMEZ ESPINAL [facility] Radiology Reports: +/- 30 days of the [...] the Encounter. The data comes from all [place] treatment facilities. Date/Time Radiology Report Provider Source Jul 03, 2024 10:59 AM CHEST X-RAY, 2 VIE WS: VAUGHN ZHENG [id number] -[id number] M Exm Date: JUL 03, 2024@10:59 Req Phys: MJ SCRUGGSRE TRACEE Sangeeta Loc: -GEN SURG I CLINIC (Req'g Lo Img Loc: -MAIN RADIOLOGY SUITE Service: [facility], [address] [place] [address] (Case [id number] COMPLETE) CHEST X-RAY, 2 VIEWS (RAD Detailed) CPT:29305 Reason for Study: Pre Op Clinical History: Report Status: Verified Date Reported: JUL 04, 2024 Date Verified: JUL 04, 2024 [facility] E-Sig:/ES/KATY MCNEIL MD Report: Case #[id number]. Chest examination. COMPARISON: 05/25/2023. Finding: PA and lateral views of the chest examination shows no evidence of cardiomegaly. Tortuous aorta is seen. No evidence of pulmonary vascular congestion, consolidation or mass. No evidence of pleural effusion or pneumothorax. Impression: No evidence of pulmonary consolidation, mass or lymphadenopathy. Primary Interpreting Staff: KATY MCNEIL MD, Staff Physician - Radiologist ([facility]) /KATY GONZALEZ [facility] Pathology Reports: +/- [...] the Encounter. The data comes from all [facility] facilities. Date/Time Pathology Report Provider Source Jun 07, 2024 12:01 PM LR SURGICAL PATHOL OGY REPORT: LOCAL TITLE: LR SURGICAL PATHOLOGY REPORT STANDARD TITLE: PATHOLOGY PROCEDURE NOTE DATE OF NOTE: JUN 07, 2024@12:01:59 ENTRY DATE: JUN 07, 2024@12:01:59 AUTHOR: JASSIM,BERNIE EXP COSIGNER: URGENCY: STATUS: COMPLETED $APHDR - [...] crust scale. The cells stain positive for [place]-1/Melan-A and SOX10 while they are negative for [...] Performing Laboratory: Surgical Pathology Report Performed By: [facility]# [id number] [address] [place] [id number] $FTR - - - - - - [...] - - VAUGHN ZHENG STANDARD FORM 515 ID:[id number] SEX:M :1940 AGE: 84 LOC:DERMCON PCP: Melania Kaiser MD /joss HOUSTON MD DERMATOLOGY & DERMATOPATHOLOGY Signed: 06/07/2024 12:01 BERNIE HOUSTON [facility] Encounter Notes: All associated encounter notes This section contains the clinical notes associated to the Encounter. Date/Time Encounter Note(s) Provider Source Jun 19, 2024 07:32 AM AUDIOLOGY E & M NO TE: LOCAL TITLE: AUDIO EVALS STL STANDARD TITLE: AUDIOLOGY E & M NOTE DATE OF NOTE: JUN 19, 2024@07:32 ENTRY DATE: JUN 19, 2024@07:32:35 AUTHOR: CARLY CHAPMAN EXP COSIGNER: URGENCY: STATUS: COMPLETED SUBJECT: Audio AUDIO [...] limits/mild 250-500 Hz sloping to severe SNHL 0262-8044 Hz SRT: 35 dB WRS: 80% (last eval 92%) Tympanogram: type A, WNL Reflexes: ipsi: present 500-1000 Hz only contra: present 500-1000 Hz only Left Ear- Audiometry (air and/or bone conduction): within normal limits/mild 250-1000 Hz sloping to moderately severe/severe SNHL 3898-2543 Hz. SRT: 35 dB WRS: 76% (last [...] the following [facility] issued hearing aids: 06/25/20 SONOVA PHONAK AUDEO P90-RT YA R [id number] 06/25/20 SONOVA PHONAK AUDEO P90-RT YA L [id number] Pt forgot aids at home for today's appt. Per ROES order form, worn with skeleton lock cShells. Reported the wires seem to cut into his ears and noted the left aid is not amplifying as much as the right. Pt reported he will be returning to [place] location on Monday and will plan to drop off hearing aids for clean/check and updated programming. 07/21/16 AUDIOLOGY PURE 7PX YA R [id number] 07/21/16 AUDIOLOGY PURE 7PX YA L [id number] Back-up aids brought to appt today. Worn [...] BT connectivity to phone. Pt has a Loyalzoo A53 5G running Android version 14. Verified compatibility for one-way audio on [employer] website. MATRIX: P After discussion, pt and clinician chose: Alysha Garza programmed to auto, VC, BT to Android. Recommendations: 1. HAF sched. /yesenia/ Lars TIAN Staff Benefits Specialist, Surgery Service Signed: 06/19/2024 10:22 06/28/2024 ADDENDUM STATUS: COMPLETED Pre-programmed hearing aid for upcoming fitting /yesenia/ DAVE SANDOVAL Licensed Mortician, [facility] Signed: 06/28/2024 14:30 /yesenia/ Lars LEIVA Staff Benefits Specialist, Surgery Service Cosigned: 06/28/2024 14:31 CARLY CHAPMAN [facility]
--- OUTSIDE RECORDS SUMMARY | 2024-10-22 12:15 | XMS_ITS | Encounter Summary ---
Author Organization [facility] Address [address] [place] [address] Care Team Providers Care Television Producer Name Role Phone Unavailable Primary Care Provider Unavailabl e Encounter Details Date Type Department Care Team (Late st Contact Info) Description 10/10/2022 Lab Requisition [facility] DermPath Lab [address] [place] [address] Martin Wooten MD [address] [place] [address] Social History Tobacco Use Types [...] 12:00 AM CDT) Case Report Dermatopathology Report Case: [id number] Authorizing Provider: Martin Wooten MD Collected: 10/10/2022 12:00 AM Ordering Location: [facility] Care DermPath Lab Received: 10/10/2022 02:56 PM Pathologist: Susi Vincent MD Specimen: Skin, left upper forehead 12:34 PM CDT DERMATOPATHOLOGY LABORATORY Final Diagnosis [...] of a curettage and desiccation biopsy measuring [id number], [id number] and [id number] that are all inked. Jar 0+. 12:34 PM CDT DERMATOPATHOLOGY LABORATORY Microscopic Description [...] characteristic determined by the Dermatopathology Laboratory at [facility], directed by Dr. Jordyn Castelan. These tests need not be, and therefore are not, approved by the [place] Food and Drug Administration. The tests are used for clinical purposes. Billing Codes Specimen Charges Stain Charges 83794 1 3 12:34 PM CDT DERMATOPATHOLOGY LABORATORY Embedded Images 3 12:34 PM CDT DERMATOPATHOLOGY LABORATORY Pathology/Cytolog y TISSUE SPECIMEN FROM SKIN / Unknown 10/10/2022 10/10/2022 2:56 PM CDT Martin Wooten MD LAB - PATHOLOGY/CYTO LOGY ORDERABLES DERMATOPATHOLOGY LABORATORY [facility] - Department of Dermatology [address], [address] [phone] documented in this encounter Visit Diagnoses Not on filedocumented in this encounter
--- OUTSIDE RECORDS SUMMARY | 2024-10-22 12:15 | XMS_ITS | Encounter Summary ---
Author Name [facility] [place] Address [address] [place] [address] Care Team Providers Care Customer Energy Specialist Name Role Phone HUONG ROWELL Primary Care [...] COURTNEY PLUS 1 Jul 24, 2015 106 [id number] [phone] [place]HENG [facility] [place] FEP PREFERRED PROVIDER ORGANIZAT ION (PPO) FEP STAND COURTNEY PLUS 1 Jul 24, 2015 106 [id number] [phone] [place] [facility] [place] F[place] PREFERRED PROVIDER ORGANIZAT ION (PPO) FEP STAND COURTNEY PLUS 1 Jul 24, 2015 106 [id number] [phone] [place]HENG [facility] [place] FEP RETIREE [id number] Jan 22, 2004 105 [id number] PAYAM ZHENG PATIENT [place] FEP PREFERRED PROVIDER ORGANIZAT ION (PPO) FEP STAND COURTNEY PLUS 1 Jul 24, 2015 106 [id number] [phone] PAYAM ZHENG PATIENT [place] FEP PRESCRIPT ION [id number] Jan 22, 2004 [id number] PAYAM ZHENG PATIENT MEDICARE (WNR) MEDICARE (M) PART A Jan 22, 2004 PART A [id number] [phone] PAYAM ZHENG PATIENT MEDICARE (WNR) MEDICARE (M) PART B Jan 22, 2004 PART B [id number] PAYAM ZHENG PATIENT MEDICARE (WNR) MEDICARE (M) PART A Jan 22, 2004 PART A [id number] PAYAM ZHENG PATIENT MEDICARE (WNR) MEDICARE (M) PART B Jan 22, 2004 PART B [id number] PAYAM ZHENG PATIENT Selected Encounter This [...] forms of age-related cataract, bilateral CHRISTINE NIEVES [facility] Plan of Treatment: Future Appointments [...] 19, 2024 09:00 AM AMBULATORY - SURGERY [facility] Jun 21, 2024 10:00 AM AMBULATORY - SURGERY [facility] Jul 03, 2024 10:20 AM AMBULATORY - SURGERY [facility] Jul 15, 2024 10:00 AM AMBULATORY - SURGERY [facility] Jul 30, 2024 01:00 PM AMBULATORY - NONE [facility] Jul 31, 2024 08:30 AM AMBULATORY - NONE [facility] Aug 03, 2024 02:29 PM AMBULATORY - MEDICINE [facility] Aug 07, 2024 09:20 AM AMBULATORY - SURGERY [facility] Aug 16, 2024 08:15 AM AMBULATORY - SURGERY [facility] Aug 21, 2024 10:00 AM AMBULATORY - SURGERY [facility] Aug 28, 2024 09:00 AM AMBULATORY - MEDICINE [facility] Sep 05, 2024 09:00 AM AMBULATORY - SURGERY [facility] Sep 19, 2024 01:00 PM AMBULATORY - SURGERY [facility] Sep 27, 2024 11:00 AM AMBULATORY - SURGERY [facility] Oct 02, 2024 11:15 AM AMBULATORY - MEDICINE [facility] Oct 02, 2024 01:00 PM AMBULATORY - SURGERY [facility] Oct 21, 2024 01:30 PM AMBULATORY - SURGERY [facility] Oct 21, 2024 02:30 PM AMBULATORY - SURGERY [facility] Oct 29, 2024 01:00 PM AMBULATORY - REHAB MEDICIN E [facility] November 25, 2024 10:45 AM AMBULATORY - MEDICINE [facility] Lab Results: +/- 30 days of the [...] Range Comment Jul 03, 2024 11:[address] [facility] BASIC METABOLIC PANEL Specimen Type: PLASMA Comment: No hemolysis noted. Ordering Provider: JYOTI SIMMONS Report Released Date/Time: Jun 24, 2024 11:11 AM Reporting Lab: [address] [address] Performing Lab: [address] [address] CREATININE 1.17 mg/dL 0.7-1.3 UREA NITROGEN 15.4 mg/dL 9.0-25.0 GLUCOSE 175 mg/dL H 72-99 SODIUM 140 meq/L 136-145 POTASSIUM 4.3 meq/L 3.5-5 CHLORIDE 106 meq/L 98-107 CARBON DIOXIDE 25 meq/L 22-31 CALCIUM 9.0 mg/dL 8.4-10.4 EGFR (CKD-EPI 2020) 61.1 >60 Jul 03, 2024 11:[address] [facility] CBC Specimen Type: BLOOD No comment entered. Ordering Provider: JYOTI SIMMONS Report Released Date/Time: Jun 24, 2024 11:11 AM Reporting Lab: [facility] [address] [place] [address] Performing Lab: [address] [address] WBC 8.1 10*3/uL 3.6-11.2 RBC 3.72 10*6/uL [...] 03:10 PM QUIT TOBACCO >7 [address] A[address] [facility] Tobacco Use History This section includes a history of the smoking, or tobacco-related health factors, that were collected on or before the date of the Encounter. The data comes from the [place] facility where the Encounter took place. Date/Time Smoking Status/Tobacco Use Comment F acility May 20, 2014 09:22 AM QUIT TOBACCO >7 YEARS A[address] [facility] Feb 19, 2013 09:01 AM QUIT TOBACCO >7 YEARS AGO [facility] December 20, 2006 08:06 AM QUIT TOBACCO >7 YEARS AGO [facility] Jun 12, 2006 09:00 AM CURRENT NON-TOBACC O USER-HX OF USE [facility] Jun 12, 2006 09:00 AM TOBACCO TERMINATION STAGE [facility] December 07, 2005 11:12 AM CURRENT NON-TOBACC O USER-HX OF USE [facility] December 07, 2005 11:12 AM TOBACCO TERMINATION STAGE [facility] Mar 21, 2005 01:46 PM CURRENT NON-TOBACC O USER-HX OF USE [facility] Mar 21, 2005 01:46 PM TOBACCO TERMINATION STAGE [facility] Mar 03, 2004 09:58 AM CURRENT NON-TOBACC O USER-HX OF USE [facility] Mar 03, 2004 09:58 AM TOBACCO TERMINATION STAGE [facility] Apr 21, 2003 09:25 AM CURRENT NON-TOBACC O USER-HX OF USE QUIT [address] [facility] Apr 21, 2003 09:25 AM CURRENT NON-TOBACC O USER-RECENTLY QUIT quit [address] [place] [address] Apr 21, 2003 09:25 AM TOBACCO USE quit [address] [place] [address] Nov 07, 2002 09:14 AM CURRENT NON-TOBACC O USER-RECENTLY QUIT quit [address] [facility] Nov 07, 2002 09:14 AM TOBACCO USE quit [address] [place] [address] Nov 08, 2001 08:09 AM CURRENT NON-TOBACC O USER-HX OF USE quit 20 yrs. ago [facility] Advance Directives: All historical and current Section Date Range: From patient's date of to the date document was created. This section includes ALL of a patient's completed or amended [place] Advance and Rescinded Directives. The entries below indicate that a directive exists for the patient, but an actual copy is not included with this document. The data comes from all [facility]. Date Advance Directives Provider Source Mar 26, 2021 ADVANCE DIRECTIVE DISCUSSION Jaqueline [facility] Jun 12, 2014 ADVANCE DIRECTIVE DISCUSSION GÓMEZ ESPINAL [facility] Radiology Reports: +/- 30 days of the [...] CHEST X-RAY, 2 VIE WS: VAUGHN ZHENG [id number] -1940 M Exm Date: JUL 03, 2024@10:59 Req Phys: DIAMOND SCRUGGS Loc: -GEN SURG I CLINIC (Req'g Lo Img Loc: [facility]-MAIN RADIOLOGY SUITE Service: Unknown [facility] [address] [place] [address] (Case [id number] COMPLETE) CHEST X-RAY, 2 VIEWS (RAD Detailed) CPT:56625 Reason for Study: Pre Op Clinical History: Report Status: Verified Date Reported: JUL 04, 2024 Date Verified: JUL 04, 2024 Model Builder Display E-Sig:/ES/KATY MCNEIL MD Report: Case #[id number]. Chest examination. COMPARISON: 05/25/2023. Finding: PA and lateral views of the chest examination shows no evidence of cardiomegaly. Tortuous aorta is seen. No evidence of pulmonary vascular congestion, consolidation or mass. No evidence of pleural effusion or pneumothorax. Impression: No evidence of pulmonary consolidation, mass or lymphadenopathy. Primary Interpreting Staff: KATY MCNEIL MD, Staff Physician - Radiologist (Model Builder Display) /KATY GONZALEZ [facility] Pathology Reports: +/- 30 days [...] crust scale. The cells stain positive for [place]-1/Melan-A and SOX10 while they are negative for [...] Performing Laboratory: Surgical Pathology Report [facility]: [facility] CLIA# [id number] [address] [facility] [address] [place] [address] $FTR - - - - - - [...] - - VAUGHN ZHENG STANDARD FORM 515 ID:[id number] SEX:M :1940 AGE: 84 LOC:DERMCON PCP: Melania Kaiser MD /yesenia/ BERNIE HOUSTON MD DERMATOLOGY & DERMATOPATHOLOGY Signed: 06/07/2024 12:01 BERNIE HOUSTON [facility] Encounter Notes: All associated encounter notes This section contains the clinical notes associated to the Encounter. Date/Time Encounter Note(s) Provider Source Jun 07, 2024 12:30 PM PATHOLOGY REPORT: LOCAL TITLE: PATHOLOGY REPORT [facility] STANDARD TITLE: PATHOLOGY REPORT DATE OF NOTE: [...] SCRUGGS III DERMATOLOGY RESIDENT 06/10/2024 09:17 /es/ Fabiano Dorantes M.D., Ph.D. Customer Energy Specialist - Dermatology 06/11/2024 10:09 /es/ ALEX GARDNER MD Dermatology Attending Physician 06/07/2024 13:34 /es/ ANNA DAVIS Dermatology resident BERNIE HOUSTON [facility] Jun 04, 2024 10:31 AM OPHTHALMOLOGY NOTE : LOCAL TITLE: OPHTHALMOLOGY NOTE ST STANDARD TITLE: OPHTHALMOLOGY NOTE DATE OF NOTE: [...] One drop Both eyes /es/ CHRISTINE NIEVES LEAD DEVELOPER Signed: 06/04/2024 10:54 CHRISTINE NIEVES [facility]
--- OUTSIDE RECORDS SUMMARY | 2024-10-22 12:15 | XMS_ITS | Encounter Summary ---
Author Name [facility] [place] [facility] [place] Address [address] [place] [address] Care Team Providers Care Obstetrician And Gynaecologist Name Role Phone HUONG ROWELL Primary Care [...] COURTNEY PLUS 1 Jul 24, 2015 106 [id number] [phone] PAYAM ZHENG [facility] [place] [place] PATIENT ANTHEM [place] FEP PREFERRED PROVIDER ORGANIZAT ION (PPO) FEP STAND COURTNEY PLUS 1 Jul 24, 2015 106 [id number] [phone] PAYAM ZHENG [facility] [place] [place] PATIENT ANTHEM [place] FEP PREFERRED PROVIDER ORGANIZAT ION (PPO) FEP STAND COURTNEY PLUS 1 Jul 24, 2015 106 [id number] [phone] PAYAM ZHENG [facility] [place] [place] PATIENT BCBS FEP RETIREE [id number] Jan 22, 2004 105 [id number] PAYAM ZHENG PATIENT [place] FEP PREFERRED PROVIDER ORGANIZAT ION (PPO) FEP STAND COURTNEY PLUS 1 Jul 24, 2015 106 [id number] [phone] PAYAM ZHENG PATIENT [place] FEP PRESCRIPT ION [id number] 500 Jan 22, 2004 [id number] PAYAM ZHENG PATIENT MEDICARE (WNR) MEDICARE (M) PART A Jan 22, 2004 PART A [id number] PAYAM ZHENG PATIENT MEDICARE (WNR) MEDICARE (M) PART B Jan 22, 2004 PART B [id number] [phone] PAYAM ZHENG PATIENT MEDICARE (WNR) MEDICARE (M) PART A Jan 22, 2004 PART A [id number] [phone] PAYAM ZHENG PATIENT MEDICARE (WNR) MEDICARE (M) PART B Jan 22, 2004 PART B [id number] PAYAM ZHENG PATIENT Selected Encounter This section includes the information on record at [place] for the Encounter. Date/Time Encounter Type Encounter Description Reason Provider Source Jul 31, 2024 02:03 PM Outpatient Encounter ADMIN PAT ACTIVTIES (MASNONCT) LIOR NI Encounter Template Text not used by [place] Plan of Treatment: Future Appointments (+ 6 months) and Future Tests (+/- 45 days) The Plan of Treatment section includes future care activities for the patient from all [place] treatmentfacilities. This section includes future appointments and [...] 02:29 PM AMBULATORY - MEDICINE [facility] Aug 07, 2024 09:20 AM AMBULATORY - SURGERY [facility] Aug 16, 2024 08:15 AM AMBULATORY - SURGERY [facility] Aug 21, 2024 10:00 AM AMBULATORY - SURGERY [facility] Aug 28, 2024 09:00 AM AMBULATORY - MEDICINE [facility] Sep 05, 2024 09:00 AM AMBULATORY - SURGERY [facility] Sep 19, 2024 01:00 PM AMBULATORY - SURGERY [facility] Sep 27, 2024 11:00 AM AMBULATORY - SURGERY [facility] Oct 02, 2024 11:15 AM AMBULATORY - MEDICINE [facility] Oct 02, 2024 01:00 PM AMBULATORY - SURGERY [facility] Oct 21, 2024 01:30 PM AMBULATORY - SURGERY [facility] Oct 21, 2024 02:30 PM AMBULATORY - SURGERY [facility] Oct 29, 2024 01:00 PM AMBULATORY - REHAB MEDICIN E [facility] November 25, 2024 10:45 AM AMBULATORY - MEDICINE [facility] November 27, 2024 10:30 AM AMBULATORY - SURGERY [facility] November 27, 2024 11:15 AM AMBULATORY - MEDICINE [facility] Active, Pending, and Scheduled Orders This section includes a listing of several types of active, pending, and scheduled orders, including clinic medications orders, diagnostic test orders, procedure orders and consult orders; where the start date of the order is 45 days before the date of the Encounter or 45 days after the date of theEncounter. The data comes from all [place] treatment facilities. Test Date/Time Test Type Test Details Facility Name Jul 31, 2024 01:29 PM Pharmacy - Clinic Medication Order [facility] Lab Results: +/- 30 days of the encounter This section includes the Chemistry and Hematology Lab Results on record with [place] for the patient. Radiology Reports and Pathology Reports are provided separately, in subsequent sections. Lab Results This section contains the Chemistry/Hematology Results that were resulted 30 days before or 30 daysafter the date of the Encounter. Date/Time Source Result Type Result - Unit Interpretation Reference Range Comment Jul 31, 2024 01:[address] [facility] GLUCOSE,BLOOD-poct (ST) Specimen Type: BLOOD Comment: Test Performed by: [id number] Meter #: [id number] Ordering Provider: JYOTI LUND Report Released Date/Time: Jul 31, 2024 01:30 PM Reporting Lab: [address] [address] Performing Lab: [address] [address] GLUCOSE,BLOOD -poct (STL) 173 mg/dL H 72-99 Jul 31, 2024 09:[address] [facility] GLUCOSE,BLOOD-poct (STL) Specimen Type: BLOOD Comment: Test Performed by: [id number] Meter #: [id number] Ordering Provider: JYOTI LUND Report Released Date/Time: Jul 31, 2024 09:08 AM Reporting Lab: [address] [address] Performing Lab: [address] [address] GLUCOSE,BLOOD -poct (STL) 148 mg/dL H 72-99 Jul 03, 2024 11:[address] [facility] BASIC METABOLIC PANEL Specimen Type: PLASMA Comment: No hemolysis noted. Ordering Provider: JYOTI LUND Report Released Date/Time: Jun 24, 2024 11:11 AM Reporting Lab: [address] [address] Performing Lab: [address] [address] CREATININE 1.17 mg/dL 0.7-1.3 UREA NITROGEN 15.4 mg/dL 9.0-25.0 GLUCOSE 175 mg/dL H 72-99 SODIUM 140 meq/L 136-145 POTASSIUM 4.3 meq/L 3.5-5 CHLORIDE 106 meq/L 98-107 CARBON DIOXIDE 25 meq/L 22-31 CALCIUM 9.0 mg/dL 8.4-10.4 EGFR (CKD-EPI 2020) 61.1 >60 Jul 03, 2024 11:[address] [facility] CBC Specimen Type: BLOOD No comment entered. Ordering Provider: JYOTI LUND Report Released Date/Time: Jun 24, 2024 11:11 AM Reporting Lab: [facility] [address] [facility] [address] Performing Lab: [facility] [address] [facility] [address] WBC 8.1 10*3/uL 3.6-11.2 RBC 3.72 10*6/uL [...] PM 97 63 149/60 11 99 1 [facility] N Jul 31, 2024 09:15 AM 97.1 62 177/71 13 100 0 63 169.5 30 [facility], [facility] N Social History: Smoking Status (Most current) and Tobacco Use (All prior to encounter date) This section includes the most current, and the historical, smoking and tobacco- related health factors from the [place] facility where the Encounter took place. Current Smoking Status This section includes the most current smoking, or tobacco-related health factor, from the [place] facility where the Encounter took place. Date/Time Current Smoking Status Comment Leoenla franco December 07, 2015 03:10 PM QUIT TOBACCO >[address] [facility] Tobacco Use History This section includes a history of the smoking, or tobacco-related health factors, that were collected on or before the date of the Encounter. The data comes from the [place] facility where the Encounter took place. Date/Time Smoking Status/Tobacco Use Comment Abisai acmaggie May 20, 2014 09:22 AM QUIT TOBACCO >[address] [facility] Feb 19, 2013 09:01 AM QUIT TOBACCO >[address] [facility] December 20, 2006 08:06 AM QUIT TOBACCO >[address] [facility] Jun 12, 2006 09:00 AM CURRENT NON-TOBACC O USER-HX OF USE [facility] Jun 12, 2006 09:00 AM TOBACCO TERMINATION STAGE [facility] December 07, 2005 11:12 AM CURRENT NON-TOBACC O USER-HX OF USE [facility] December 07, 2005 11:12 AM TOBACCO TERMINATION STAGE [facility] Mar 21, 2005 01:46 PM CURRENT NON-TOBACC O USER-HX OF USE [facility] Mar 21, 2005 01:46 PM TOBACCO TERMINATION STAGE [facility] Mar 03, 2004 09:58 AM CURRENT NON-TOBACC O USER-HX OF USE [facility] Mar 03, 2004 09:58 AM TOBACCO TERMINATION STAGE [facility] Apr 21, 2003 09:25 AM CURRENT NON-TOBACC O USER-HX OF USE QUIT [address] [place] [address] Apr 21, 2003 09:25 AM CURRENT NON-TOBACC O USER-RECENTLY QUIT quit [address] [place] [address] Apr 21, 2003 09:25 AM TOBACCO USE quit [address] [place] [address] Nov 07, 2002 09:14 AM CURRENT NON-TOBACC O USER-RECENTLY QUIT quit [address] [place] [address] Nov 07, 2002 09:14 AM TOBACCO USE quit [address] [place] [address] Nov 08, 2001 08:09 AM CURRENT NON-TOBACC O USER-HX OF USE quit 20 yrs. ago [facility] Advance Directives: All historical and current Section Date Range: From patient's date of to the date document was created. This section includes ALL of a patient's completed or amended [place] Advance and Rescinded Directives. The entries below indicate that a directive exists for the patient, but an actual copy is not included with this document. The data comes from all [place] facilities. Date Advance Directives Provider Source Mar 26, 2021 ADVANCE DIRECTIVE DISCUSSION Jaqueline [facility] Jun 12, 2014 ADVANCE DIRECTIVE DISCUSSION GÓMEZ ESPINAL [facility] Radiology Reports: +/- 30 [...] comes from all [place] treatment facilities. Date/Time Radiology Report Provider Source Jul 30, 2024 12:46 PM [place] LYMPH NODE IMAGING- P: VAUGHN ZHENG Virginie [id number] -1940 M Exm Date: JUL 30, 2024@12:46 Req Phys: DIAMOND SCRUGGS Loc: [facility]-PRE-OP EVAL NURSING AM (Req Img Loc: [facility]-NUCLEAR MEDICINE Service: [address] [address] (Case [id number] COMPLETE) NM LYMPHATIC/LYMPH NODE IMAGING (NM Detailed) CPT:31226 Reason for Study: Left Arm Malignant Melanoma (Case [id number] COMPLETE) TC99M TILMANOCEPT (LYMPHOSEEK) (NM Detailed) CPT:A9520 (Case 755 COMPLETE) NON-HEU TC-99M ADD-ON PER STUDY D(NM Detailed) CPT:Q9969 Clinical History: Enter History and Reason for Exam: Wide Local Excision of Left Arm Melanoma with [place] Lymph Node Biopsy scheduled on 07/31/[address] Jyoti Lund. Patient needs lymphoscintigraphy on 07/30/2024 Enter date AND time of surgery: 07/31/2024 1030 PATIENT HEIGHT: 64 in [162.6 cm] (03/19/2019 14:34) PATIENT WEIGHT: 172 lb [78.02 kg] (04/25/2024 15:04) Report Status: Verified Date Reported: JUL 30, 2024 Date Verified: JUL 30, 2024 Care Transitions Nurse E-Sig:/ES/Jonel Marques MD,PhD Report: Patient Name: Lisa [...] Resident: ANABELLA PAIZ, Resident Physician /JONEL MAO [facility] Jul 03, 2024 10:59 AM CHEST X-RAY, 2 VIEWS: VAUGHN ZHENG [id number] -1940 M Exm Date: JUL 03, 2024@10:59 Req Phys: DIAMOND SCRUGGS Loc: [facility]-GEN SURG I CLINIC (Req'g Lo Img Loc: -MAIN RADIOLOGY SUITE Service: [facility] [place], [facility] [address] [place] [address] (Case [id number] COMPLETE) CHEST X-RAY, 2 VIEWS (RAD Detailed) CPT:99939 Reason for Study: Pre Op Clinical History: Report Status: Verified Date Reported: JUL 04, 2024 Date Verified: JUL 04, 2024 Care Transitions Nurse E-Sig:/ES/KATY MCNEIL MD Report: Case #[id number]. Chest examination. COMPARISON: 05/25/2023. Finding: PA and lateral views of the chest examination shows no evidence of cardiomegaly. Tortuous aorta is seen. No evidence of pulmonary vascular congestion, consolidation or mass. No evidence of pleural effusion or pneumothorax. Impression: No evidence of pulmonary consolidation, mass or lymphadenopathy. Primary Interpreting Staff: KATY MCNEIL MD, Staff Physician - Radiologist (Care Transitions Nurse) /JUAN PABLO GONZALEZ [facility] Pathology Reports: +/- 30 days [...] giant cell reaction are noted. IHC for [place]-1 is applied on block B3, B4, B5 [...] Performing Laboratory: Surgical Pathology Report Performed By: [facility] [address] [place], [place] [address]IA# [id number] [address] [address] $FTR - - - - - - - - - - - - - - - - - - - - - - - - - - - - - - - - - - - - - - - - (End of report) ROMAN AVILA MD [facility] Date Aug 06, 2024 - - - - - - - - - - - - - - - - - - - - - - - - - - - - - - - - - - - - - - - - VAUGHN ZHENG STANDARD FORM 515 ID:[id number] SEX:M :1940 AGE: 84 LOC:APFEE PCP: Melania Kaiser MD /yesenia/ ROMAN AVILA Pathologist Signed: 08/06/2024 10:34 ROMAN AVILA [facility] Encounter Notes: All associated encounter notes This section contains the clinical notes associated to the Encounter. Date/Time Encounter Note(s) Provider Source Jul 31, 2024 02:03 PM ANESTHESIOLOGY SARA WSHEET: LOCAL TITLE: PACU POST-OP FLOWSHEET ST STANDARD TITLE: ANESTHESIOLOGY FLOWSHEET DATE OF NOTE: JUL 31, 2024@14:03 ENTRY DATE: JUL 31, 2024@14:03:36 AUTHOR: LIOR NI COSIGNER: URGENCY: STATUS: COMPLETED Patient: VUAGHN ZHENG SSN: [id number] Anesthesia Method: General 07/31/2024 11:45 (Primary), Airway: Endotracheal Intubation, Technique: Direct Laryngoscopy, Level Of Consciousness: Sedated, Patient Position: Supine, Preoxygenated, Induction Type: Intravenous, Breathing Circuit: [place] Adult, Ventilation by Mask: Easy to Ventilate with Aid/Adjunct, Intubating Device: Curved Blade, Ease: Easy, 1 Number Of Attempts, Intubation View: Grade 1, Blade Size: 4, Size: 8 mm, Depth (cm): 23, Tube: Cuffed, Depth Measurement Location: Lips, Tracheal Cuff Volume (cc): 10, Tracheal Cuff Inflated With: Air, EtCO2 Verified: Waveform, Breath Sounds: Equal And Bilateral, Epigastric Sounds Negative, Performed By: PRIN. JONES. Route: Oral Tube Checklist: Balloons Checked Airway Tube: Standard Adjunct Devices: Oral Airway, Stylet Verification Of Tube Placement: Bilateral Chest Movement Securement: Taped Eye Protection: Both Eyes, Tape Insertion Complication: No Complications Noted Positioning: Head Neutral, Head And Neck In Alignment With Spine, Pressure Points Padded & Checked, Eyes, Ears And Nose Free Of Pressure ASA Number: 3 Procedure: split thickness skin graft to left dorsal forearm CMPLX RPR S/A/L 2.6-7.5 CM Diagnosis: melanoma left dorsal forearm PACU Drugs: PACU Fluids: Ringers Lactated Solution: 200 ml Date of Operation: 07/31/2024 Anesthesia Care End: 07/31/2024 13:18 Resources: Aquacel foam placed on shanon prominence to protect skin during surgery Safety Belt Staff: --------- HUONG WEATHERS, SURGEON HUONG WEATHERS, ATT. SURGEON NANNETTE HUMMEL ANES. SUPER. FELDMANN, REBECCA, PRIN. ANES. RITTER, BRIAN, RELIEF HEAD ANIMAL TRAINER LIOR NI, Post-Op Nurse Surgery Start Time: 07/31/2024 11:53 Procedure End Time: Moderate Sedation Care End: /yesenia/ RANDY FRYE, RN Signed: 07/31/2024 14:03 LIOR NI [facility]
--- OUTSIDE RECORDS SUMMARY | 2024-10-22 12:15 | XMS_ITS | Encounter Summary ---
Author Name [facility] [place] [facility] [place] Address [address] [place] [address] Care Team Providers Care Inside Sales Account Executive Name Role Phone HUONG ROWELL Primary Care [...] COURTNEY PLUS 1 Jul 24, 2015 106 [id number] [phone] PAYAM ZHENG PATIENT ANTHEM [employer] FEP PREFERRED PROVIDER ORGANIZAT ION (PPO) FEP STAND COURTNEY PLUS 1 Jul 24, 2015 106 [id number] [phone] PAYAM ZHENG PATIENT ANTHEM [place] F[place] PREFERRED PROVIDER ORGANIZAT ION (PPO) FEP STAND COURTNEY PLUS 1 Jul 24, 2015 106 [id number] [phone] PAYAM ZHENG PATIENT BCBS FEP RETIREE [id number] Jan 22, 2004 105 [id number] [phone] PAYAM ZHENG PATIENT [place] PREFERRED PROVIDER ORGANIZAT ION (PPO) FEP STAND COURTNEY PLUS 1 Jul 24, 2015 106 [id number] [phone] PAYAM ZHENG PATIENT [place] FEP PRESCRIPT ION [id number] Jan 22, 2004 [id number] PAYAM ZHENG PATIENT MEDICARE (WNR) MEDICARE (M) PART A Jan 22, 2004 PART A [id number] [phone] PAYAM ZHENG PATIENT MEDICARE (WNR) MEDICARE (M) PART B Jan 22, 2004 PART B [id number] PAYAM ZHENG PATIENT MEDICARE (WNR) MEDICARE (M) PART A Jan 22, 2004 PART A [id number] PAYAM ZHENG PATIENT MEDICARE (WNR) MEDICARE (M) PART B Jan 22, 2004 PART B [id number] [phone] PAYAM ZHENG PATIENT Selected Encounter This section includes the information on record at [place] for the Encounter. Date/Time Encounter Type Encounter Description Reason Provider Source Jul 15, 2024 10:00 AM HEARING SERVICE AUDIOLOGY ICD-10-CM H90.3 Sensorineural hearing loss, bilateral OSVALDO CHAPMAN E Encounter Template Text not used by [place] Assessments - Encounter Diagnoses This section includes the primary and secondary diagnoses documented for the Encounter. Date/Time Primary/Secondary Diagnosis Diagnosis Name Provider Source Jul 15, 2024 10:58 AM PRIMARY Sensorineural hearing loss, bilateral TAMMY CHAPMAN N [facility] Plan of Treatment: Future Appointments (+ 6 months) and Future Tests (+/- 45 days) The Plan of Treatment section includes future care activities for the patient from all [place] treatmentfacilities. This section includes future appointments and future orders which are active, pending or scheduled. Future Appointments This section includes appointments that were scheduled to occur 6 months from the date of the Encounter, up to a maximum of 20 appointments. The data comes from all [place] treatment facilities. Appointment Date/Time Appointment Type Appointme nt Facility Name Jul 30, 2024 01:00 PM AMBULATORY - NONE [facility] Jul 31, 2024 08:30 AM AMBULATORY - NONE [facility] MAR[facility]OL Hansen [facility] Aug 03, 2024 02:29 PM AMBULATORY - MEDICINE . [facility] Aug 07, 2024 09:20 AM AMBULATORY - SURGERY [facility] P[facility] Aug 16, 2024 08:15 AM AMBULATORY - SURGERY [facility] Aug 21, 2024 10:00 AM AMBULATORY - SURGERY [facility] Aug 28, 2024 09:00 AM AMBULATORY - MEDICINE . [facility] Sep 05, 2024 09:00 AM AMBULATORY - SURGERY [facility] Sep 19, 2024 01:00 PM AMBULATORY - SURGERY [facility] Sep 27, 2024 11:00 AM AMBULATORY - SURGERY [facility] Oct 02, 2024 11:15 AM AMBULATORY - MEDICINE [facility] Oct 02, 2024 01:00 PM AMBULATORY - SURGERY [facility] Oct 21, 2024 01:30 PM AMBULATORY - SURGERY [facility] Oct 21, 2024 02:30 PM AMBULATORY - SURGERY [facility] Oct 29, 2024 01:00 PM AMBULATORY - REHAB MEDICIN E [facility] November 25, 2024 10:45 AM AMBULATORY - MEDICINE [facility] November 27, 2024 10:30 AM AMBULATORY - SURGERY [facility] November 27, 2024 11:15 AM AMBULATORY - MEDICINE [facility] Active, Pending, and Scheduled Orders This section includes a listing of several types of active, pending, and scheduled orders, including clinic medications orders, diagnostic test orders, procedure orders and consult orders; where the start date of the order is 45 days before the date of the Encounter or 45 days after the date of theEncounter. The data comes from all [place] treatment facilities. Test Date/Time Test Type Test Details Facility Name Jul 31, 2024 01:29 PM Pharmacy - Clinic Medication Order [facility] Lab Results: +/- 30 days [...] Range Comment Jul 31, 2024 01:28 PM [facility] GLUCOSE,BLOOD-poct (STL) Specimen Type: BLOOD Comment: Test Performed by: [id number] Meter #: [id number] Ordering Provider: JYOTI LUND Report Released Date/Time: Jul 31, 2024 01:30 PM Reporting Lab: [address] [address] Performing Lab: [address] [address] GLUCOSE,BLOOD -poct (STL) 173 mg/dL H 72-99 Jul 31, 2024 09:05 AM [facility] GLUCOSE,BLOOD-poct (STL) Specimen Type: BLOOD Comment: Test Performed by: [id number] Meter #: [id number] Ordering Provider: JYOTI LUND Report Released Date/Time: Jul 31, 2024 09:08 AM Reporting Lab: [address] [address] Performing Lab: [address] [address] GLUCOSE,BLOOD -poct (STL) 148 mg/dL H 72-99 Jul 03, 2024 11:25 AM [facility] BASIC METABOLIC PANEL Specimen Type: PLASMA Comment: No hemolysis noted. Ordering Provider: JYOTI LUND Report Released Date/Time: Jun 24, 2024 11:11 AM Reporting Lab: [address] [address] Performing Lab: [address] [address] CREATININE 1.17 mg/dL 0.7-1.3 UREA NITROGEN 15.4 mg/dL 9.0-25.0 GLUCOSE 175 mg/dL H 72-99 SODIUM 140 meq/L 136-145 POTASSIUM 4.3 meq/L 3.5-5 CHLORIDE 106 meq/L 98-107 CARBON DIOXIDE 25 meq/L 22-31 CALCIUM 9.0 mg/dL 8.4-10.4 EGFR (CKD-EPI 2020) 61.1 >60 Jul 03, 2024 11:25 AM [facility] CBC Specimen Type: BLOOD No comment entered. Ordering Provider: JYOTI LUND Report Released Date/Time: Jun 24, 2024 11:11 AM Reporting Lab: [facility] [address] [facility] [address] Performing Lab: [facility] [address] [facility] [address] WBC 8.1 10*3/uL 3.6-11.2 RBC 3.72 10*6/uL [...] and tobacco- related health factors from the [place] facility where the Encounter took place. Current Smoking Status This section includes the most current smoking, or tobacco-related health factor, from the [place] facility where the Encounter took place. Date/Time Current Smoking Status Comment Leonela franco December 07, 2015 03:10 PM QUIT TOBACCO >7 YEARS AGO [facility] Tobacco Use History This section includes a history of the smoking, or tobacco-related health factors, that were collected on or before the date of the Encounter. The data comes from the [facility] where the Encounter took place. Date/Time Smoking Status/Tobacco Use Comment Abisai acmaggie May 20, 2014 09:22 AM QUIT TOBACCO >7 YEARS AGO [facility] Feb 19, 2013 09:01 AM QUIT TOBACCO >7 YEARS AGO [facility] December 20, 2006 08:06 AM QUIT TOBACCO >7 YEARS AGO [facility] Jun 12, 2006 09:00 AM CURRENT NON-TOBACC O USER-HX OF USE [facility] Jun 12, 2006 09:00 AM TOBACCO TERMINATION STAGE [facility] December 07, 2005 11:12 AM CURRENT NON-TOBACC O USER-HX OF USE [facility] December 07, 2005 11:12 AM TOBACCO TERMINATION STAGE [facility] Mar 21, 2005 01:46 PM CURRENT NON-TOBACC O USER-HX OF USE [facility] Mar 21, 2005 01:46 PM TOBACCO TERMINATION STAGE [facility] Mar 03, 2004 09:58 AM CURRENT NON-TOBACC O USER-HX OF USE [facility] Mar 03, 2004 09:58 AM TOBACCO TERMINATION [facility] Apr 21, 2003 09:25 AM CURRENT NON-TOBACC O USER-HX OF USE QUIT [address] [place] [address] Apr 21, 2003 09:25 AM CURRENT NON-TOBACC O USER-RECENTLY QUIT quit [address] [place] [address] Apr 21, 2003 09:25 AM TOBACCO USE quit [address] [place] [address] Nov 07, 2002 09:14 AM CURRENT NON-TOBACC O USER-RECENTLY QUIT quit [address] [place] [address] Nov 07, 2002 09:14 AM TOBACCO USE quit [address] [place] [address] Nov 08, 2001 08:09 AM CURRENT NON-TOBACC O USER-HX OF USE quit yrs. ago [facility] Advance Directives: All historical and current Section Date Range: From patient's date of to the date document was created. This section includes ALL of a patient's completed or amended [place] Advance and Rescinded Directives. The entries below indicate that a directive exists for the patient, but an actual copy is not included with this document. The data comes from all [place] facilities. Date Advance Directives Provider Source Mar 26, 2021 ADVANCE DIRECTIVE DISCUSSION Jaqueline [facility] Jun 12, 2014 ADVANCE DIRECTIVE DISCUSSION GÓMEZ ESPINAL [facility] Radiology Reports: +/- 30 days of [...] the Encounter. The data comes from all [place] treatment facilities. Date/Time Radiology Report Provider Source Jul 30, 2024 12:46 PM NM LYMPH NODE IMAGING- P: VAUGHN ZHENG Virginie [id number] -1940 M Exm Date: JUL 30, 2024@12:46 Req Phys: DIAMOND SCRUGGS Loc: [facility]-PRE-OP EVAL NURSING AM (Req Img Loc: [facility]NUCLEAR MEDICINE Service: [address] [address] (Case [id number] COMPLETE) NM LYMPHATIC/LYMPH NODE IMAGING (NM Detailed) CPT:10037 Reason for Study: Left Arm Malignant Melanoma (Case [id number] COMPLETE) TC99M TILMANOCEPT (LYMPHOSEEK) (NM Detailed) CPT:A9520 (Case 755 COMPLETE) NON-HEU TC-99M ADD-ON PER STUDY D(NM Detailed) CPT:Q9969 Clinical History: Enter History and Reason for Exam: Wide Local Excision of Left Arm Melanoma with [place] Lymph Node Biopsy scheduled on 07/31/[address] Jyoti Lund. Patient needs lymphoscintigraphy on 07/30/2024 Enter date AND time of surgery: 07/31/2024 1030 PATIENT HEIGHT: 64 in [162.6 cm] (03/19/2019 14:34) PATIENT WEIGHT: 172 lb [78.02 kg] (04/25/2024 15:04) Report Status: Verified Date Reported: JUL 30, 2024 Date Verified: JUL 30, 2024 Border Measurer [employer] Cutter E-Sig:/ES/Jonel Marqeus MD,PhD Report: Patient Name: Lisa Rachel SENTINEL [...] Resident: ANABELLA PAIZ, Resident Physician /JONEL MAO [facility] Jul 03, 2024 10:59 AM CHEST X-RAY, 2 VIEWS: VAUGHN ZHENG [id number] -1940 M Exm Date: JUL 03, 2024@10:59 Req Phys: DIAMOND SCRUGGS Loc: [facility]-GEN SURG I CLINIC (Req'g Lo Img Loc: [facility]MAIN RADIOLOGY SUITE Service: [facility], [address] [place] [address] (Case [id number] COMPLETE) CHEST X-RAY, 2 VIEWS (RAD Detailed) CPT:13919 Reason for Study: Pre Op Clinical History: Report Status: Verified Date Reported: JUL 04, 2024 Date Verified: JUL 04, 2024 Border Measurer And Cutter E-Sig:/ES/KATY MCNEIL MD Report: Case #[id number]. Chest examination. COMPARISON: 05/25/2023. Finding: PA and lateral views of the chest examination shows no evidence of cardiomegaly. Tortuous aorta is seen. No evidence of pulmonary vascular congestion, consolidation or mass. No evidence of pleural effusion or pneumothorax. Impression: No evidence of pulmonary consolidation, mass or lymphadenopathy. Primary Interpreting Staff: KATY MCNEIL MD, Staff Physician - Radiologist (Border Measurer And Cutter) /JUAN PABLO GONZALEZ [facility] Pathology Reports: +/- [...] the Encounter. The data comes from all [place] treatment facilities. Date/Time Pathology Report Provider Source [...] giant cell reaction are noted. IHC for [place]-1 is applied on block B3, B4, B5 [...] Performing Laboratory: Surgical Pathology Report Performed By: [facility] [address] [place] [address]# [id number] 5 Isaias [facility] [address] [place] [address] $FTR - - - - - - - - - - - - - - - - - - - - - - - - - - - - - - - - - - - - - - - - (End of report) ROMAN AVILA MD [facility] Date Aug 06, 2024 - - - - - - - - - - - - - - - - - - - - - - - - - - - - - - - - - - - - - - - - VAUGHN ZHENG STANDARD FORM 515 ID:[id number] SEX:M :1940 AGE: 84 LOC:APFEE PCP: Melania Kaiser MD /yesenia/ ROMAN AVILA Pathologist Signed: 08/06/2024 10:34 ROMAN AVILA [facility] Encounter Notes: All associated encounter notes This section contains the clinical notes associated to the Encounter. Date/Time Encounter Note(s) Provider Source Jul 15, 2024 09:55 AM AUDIOLOGY WIRE ROPE FABRICATION SUPERVISOR NOTE: LOCAL TITLE: HEARING AIDS STL STANDARD TITLE: AUDIOLOGY WIRE ROPE FABRICATION SUPERVISOR NOTE DATE OF NOTE: JUL 15, 2024@09:55 ENTRY DATE: JUL 15, 2024@09:55:19 AUTHOR: CARLY CHAPMAN COSIGNER: URGENCY: STATUS: COMPLETED SUBJECT: Audio HEARING AIDS STL Has ADDENDA Pt was seen for fitting of new [...] access to equipment. [x] experienced user- 06/25/20 [employer] PHONAK AUDEO P90-RT YA with skeleton lock cShells Today, pt was fit with binaural Alysha EDGE AI ITC R with canal locks. The aids are programmed as: auto, MB=VC (right raise, left lower), BT to Android ([employer] 5G running Android version 14, compatible for one-way audio). provided with scutcher tender application info; to download and pair on his own as desired. Right: [id number] Left: [id number] Trial period: 12/22/24 The following standardized education was provided and the pt was able to demonstrate understanding after the education: o Introduction to aids (red/blue, right/left) o Parts of the aid o Beauty Sales Consultant o Insertion/removal of aids. o Volume control o Realistic expectations of aids. o Cleaning/maint of aids. Wax filters. [place]. o Review of the items: soft case, [...] adjustment to amplification. 2. Contact Audiology Clinic [phone] or [phone] for repairs and/or adjustments as needed. 3. Pt to return completed IOI survey in 30 days. Time for appt: 52 min /yesenia/ Lars TIAN Staff Marketing Director Assisted Living, Surgery Service Signed: 07/15/2024 10:59 08/30/2024 ADDENDUM STATUS: COMPLETED Pt completed and returned IOI-GIFFORD survey measure. Score of 21. Outcomes entered in ROES. Not alerting ordering automotive tire testing supervisor as Dr. Chapman has already discussed with pt and entered RTC for HAC. /yesenia/ Lars Butler, [facility] Staff Marketing Director Assisted Living, Surgery Service Signed: 08/30/2024 15:35 CARLY CHAPMAN [facility]
--- OUTSIDE RECORDS SUMMARY | 2024-10-22 12:15 | XMS_ITS | Encounter Summary ---
Author Name [facility] [place] Address [address] [place] [address] Care Team Providers Care Child Center Assistant Name Role Phone SORIN HUONG Primary Care Provider JANKI Miller Unavailable [...] COURTNEY PLUS 1 Jul 24, 2015 106 [id number] [phone] PAYAM ZHENG PATIENT ANTHEM [place] FEP PREFERRED PROVIDER ORGANIZAT ION (PPO) FEP STAND COURTNEY PLUS 1 Jul 24, 2015 106 [id number] [phone] PAYAM ZHENG PATIENT ANTHEM [place] F[place] PREFERRED PROVIDER ORGANIZAT ION (PPO) FEP STAND COURTNEY PLUS 1 Jul 24, 2015 106 [id number] [phone] PAYAM ZHENG PATIENT BCBS FEP RETIREE [id number] Jan 22, 2004 105 [id number] PAYAM ZHENG PATIENT [place] F[place] PREFERRED PROVIDER ORGANIZAT ION (PPO) FEP STAND COURTNEY PLUS 1 Jul 24, 2015 106 [id number] [phone] PAYAM ZHENG PATIENT [place] FEP PRESCRIPT ION [id number] Jan 22, 2004 [id number] [phone] PAYAM ZHENG PATIENT MEDICARE (WNR) MEDICARE (M) PART B Jan 22, 2004 PART B [id number] [phone] PAYAM ZHENG PATIENT MEDICARE (WNR) MEDICARE (M) PART A Jan 22, 2004 PART A [id number] PAYAM ZHENG PATIENT MEDICARE (WNR) MEDICARE (M) PART A Jan 22, 2004 PART A [id number] [phone] PAYAM ZHENG PATIENT MEDICARE (WNR) MEDICARE (M) PART B Jan 22, 2004 PART B [id number] PAYAM ZHENG PATIENT Selected Encounter This section includes the information on record at [place] for the Encounter. Date/Time Encounter Type Encounter Description Reason Provider Source May 28, 2024 10:30 AM OFFICE O/P NEW MOD 45 MIN DERMATOLOGY ICD-10-CM L57.0 Actinic keratosis ALEX GARDNER [facility] Encounter Template Text not used by [place] Assessments - Encounter Diagnoses This section includes the primary and secondary diagnoses documented for the Encounter. Date/Time Primary/Secondary Diagnosis Diagnosis Name Provider Source May 28, 2024 11:24 AM PRIMARY Actinic keratosis ALEX GARDNER [facility] May 28, 2024 11:24 AM SECONDARY Encounter for screening for malignant neoplasm of skin ALEX GARDNER [facility] May 28, 2024 11:24 AM SECONDARY Melanocytic nevi, unspecified ALEX GARDNER [facility] May 28, 2024 11:24 AM SECONDARY Neoplasm of uncertain behavior of skin ALEX GARDNER [facility] May 28, 2024 11:24 AM SECONDARY Other seborrheic keratosis ALEX GARDNER [facility] May 28, 2024 11:24 AM SECONDARY Personal history of other malignant neoplasm of skin ALEX GARDNER [facility] Plan of Treatment: Future Appointments (+ 6 months) and Future Tests (+/- 45 days) The Plan of Treatment section includes future care activities for the patient [facility] [place] [facility] This section includes future appointments and [...] [facility] Jun 19, 2024 09:00 AM AMBULATORY - SURGERY [facility] Jun 21, 2024 10:00 AM [facility] Jul 03, 2024 10:20 [facility] 15, [facility]24 10:00 AM [facility] - SUR[facility] Jul 30, 2024 01:00 PM AMBULATORY - NONE [facility] Jul 31, 2024 08:30 AM AMBULATORY - NONE [facility] Aug 03, 2024 02:29 PM AMBULATORY - MEDICINE [facility] Aug 07, 2024 09:20 AM AMBULATORY - SURGERY [facility] Aug 16, 2024 08:15 AM AMBULATORY - SURGERY [facility] Aug 21, 2024 10:00 AM AMBULATORY - SURGERY [facility] Aug 28, 2024 09:00 AM AMBULATORY - MEDICINE [facility] Sep 05, 2024 09:00 AM AMBULATORY - SURGERY [facility] Sep 19, 2024 01:00 PM AMBULATORY - SURGERY [facility] Sep 27, 2024 11:00 AM AMBULATORY - SURGERY [facility] Oct 02, 2024 11:15 AM AMBULATORY - MEDICINE [facility] Oct 02, 2024 01:00 PM AMBULATORY - SURGERY [facility] Oct 21, 2024 01:30 PM AMBULATORY - SURGERY [facility] Oct 21, 2024 02:30 PM AMBULATORY - SURGERY [facility] Story [facility] Oct 29, 2024 01:00 PM AMBULATORY - REHAB MEDICIN E [facility] Advance Directives: All historical [...] 26, 2021 ADVANCE DIRECTIVE DISCUSSION Jaqueline [facility] Jun 12, 2014 ADVANCE DIRECTIVE DISCUSSION GÓMEZ ESPINAL [facility] Pathology Reports: +/- 30 days of the [...] the Encounter. The data comes from all [facility] facilities. Date/Time Pathology Report Provider Source Jun [...] Melanoma vs Pigmented BCC vs [place] + Toabr angioma - - - - - - [...] crust scale. The cells stain positive for [place]-1/Melan-A and SOX10 while they are negative for [...] Performing Laboratory: Surgical Pathology Report Performed By: [facility] CLIA# [id number] [address] [place] [address] $FTR - - - - - - [...] - - VAUGHN ZHENG STANDARD FORM 515 ID:[id number] SEX:M :1940 AGE: 84 LOC:DERMCON PCP: Melania Kaiser MD /yesenia/ BERNIE HOUSTON MD DERMATOLOGY & DERMATOPATHOLOGY Signed: 06/07/2024 12:01 BERNIE HOUSTON [facility] Encounter Notes: All associated encounter notes This section contains the clinical notes associated to the Encounter. Date/Time Encounter Note(s) Provider Source Aug 13, 2024 09:19 AM ADDENDUM: LOCAL TITLE: Addendum STANDARD TITLE: ADDENDUM DATE OF NOTE: AUG 13, 2024@09:19:37 ENTRY DATE: AUG 13, 2024@09:19:38 AUTHOR: ALEX GARDNER RR EXP COSIGNER: URGENCY: STATUS: COMPLETED S/p WLE and SLNB by general surgery on 07/31 with negative margins and negative reactive lymph node x1. Recommend derm follow-up 3 months after last exam (i.e., August 2024). RTC order placed. /yesenia/ ALEX GARDNER MD Dermatology Attending Physician Signed: 08/13/2024 09:20 Receipt Acknowledged By: * AWAITING SIGNATURE * RAFFAELE VARGAS 08/13/2024 09:47 /yesenia/ MONI FANG [employer] SUPPORT ASSITANCE --- Original Document --- 05/28/24 DERMATOLOGY CONSULT STL: DERM CONSULT NOTE VAUGHN ZHENG is a 84 year MALE with history of skin cancer in 2020 and presenting for CONSULTATION OF: h/o aKs; needs yearly skin exam. outside derm retired. 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 [place] Protocol Time-Out performed. The lesionals areas were [...] phone: RTC in 6 months or per path /yesenia/ MEG SCRUGGS III DERMATOLOGY RESIDENT Signed: [...] MD Dermatology Attending Physician Signed: 05/28/2024 11:27 ALEX GARDNER [facility] Jun 07, 2024 01:07 PM INTERNAL MEDICINE NOTE: LOCAL TITLE: BIOPSY FOLLOW UP ST STANDARD TITLE: INTERNAL MEDICINE NOTE DATE OF NOTE: JUN 07, 2024@13:07 ENTRY DATE: JUN 07, 2024@13:07:43 AUTHOR: ANNA DAVIS COSIGNER: BERNIE HOUSTON URGENCY: STATUS: COMPLETED Communicated [...] GARDNER MD Dermatology Attending Physician ANNA DAVIS [facility] May 28, 2024 10:47 AM DERMATOLOGY CONSUL T: LOCAL TITLE: DERMATOLOGY CONSULT [facility] STANDARD TITLE: DERMATOLOGY CONSULT DATE OF NOTE: [...] derm retired. 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 [place] Protocol Time-Out performed. The lesionals areas were [...] phone: RTC in 6 months or per path /yesenia/ MEG SCRUGGS III DERMATOLOGY RESIDENT Signed: 05/28/2024 11:24 /joss GARDNER MD Dermatology Attending Physician Cosigned: 05/28/2024 11:27 05/28/2024 ADDENDUM STATUS: COMPLETED I interviewed and examined the patient and discussed the case with the resident. I was immediately available during entire visit and any procedure(s). I agree with documented history, physical examination, assessment and plan. /yesenia/ ALEX GARDNER MD Dermatology Attending Physician Signed: 05/28/2024 11:27 08/13/2024 ADDENDUM STATUS: COMPLETED S/p WLE and SLNB by general surgery on 07/31 with negative margins and negative reactive lymph node x1. Recommend derm follow-up 3 months after last exam (i.e., August 2024). RTC order placed. /joss GARDNER MD Dermatology Attending Physician Signed: 08/13/2024 09:20 Receipt Acknowledged By: * AWAITING SIGNATURE * RAFFAELE VARGAS * AWAITING SIGNATURE * MONI FANG [facility] [facility]
--- OUTSIDE RECORDS SUMMARY | 2024-10-22 12:15 | XMS_ITS | Encounter Summary ---
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 Knitter Mechanic Name Role Phone HUONG ROWELL Primary Care [...] COURTNEY PLUS 1 Jul 24, [phone] [id number] [phone] PAYAM ZHENG [facility] PATIENT ANTHEM [place] FEP PREFERRED PROVIDER ORGANIZAT ION (PPO) FEP STAND COURTNEY PLUS 1 Jul 24, 2015 106 [id number] [phone] PAYAM ZHENG [facility] PATIENT ANTHE[place] FEP PREFERRED PROVIDER ORGANIZAT ION (PPO) FEP STAND COURTNEY PLUS 1 Jul 24, 2015 106 [id number] [phone] PAYAM ZHENG [facility] PATIENT BCBS FEP RETIREE [id number] Jan 22, 2004 [id number] PAYAM ZHENG PATIENT [place] FEP PREFERRED PROVIDER ORGANIZAT ION (PPO) FEP STAND COURTNEY PLUS 1 Jul 24, 2015 106 [id number] [phone] PAYAM ZHENG PATIENT [place] FEP PRESCRIPT ION [id number] Jan 22, 2004 [id number] [phone] PAYAM ZHENG PATIENT MEDICARE (WNR) MEDICARE (M) PART A Jan 22, 2004 PART A [id number] PAYAM ZHENG PATIENT MEDICARE (WNR) MEDICARE (M) PART B Jan 22, 2004 PART B [id number] PAYAM ZHENG PATIENT MEDICARE (WNR) MEDICARE (M) PART A Jan 22, 2004 PART A [id number] PAYAM ZHENG PATIENT MEDICARE (WNR) MEDICARE (M) PART B Jan 22, 2004 PART B [id number] PAYAM ZHENG PATIENT Selected Encounter This section includes the information on record at [place] for the Encounter. Date/Time Encounter Type Encounter Description Reason Provider Source Jul 31, 2024 01:15 PM Outpatient Encounter ADMIN PAT ACTIVTIES (MASNONCT) JYOTI PICKARD Gerardo Encounter Template Text not used by [place] Plan of Treatment: Future Appointments (+ 6 [...] 2024 02:29 PM AMBULATORY - MEDICINE [facility] Aug 07, 2024 09:20 AM AMBULATORY - SURGERY [facility] Aug 16, 2024 08:15 AM AMBULATORY - SURGERY [facility] Aug 21, 2024 10:00 AM AMBULATORY - SURGERY [facility] Aug 28, 2024 09:00 AM AMBULATORY - MEDICINE [facility] Sep 05, 2024 09:00 AM AMBULATORY - SURGERY [facility] Sep 19, 2024 01:00 PM AMBULATORY - SURGERY [facility] Sep 27, 2024 11:00 AM AMBULATORY - SURGERY [facility] Oct 02, 2024 11:15 AM AMBULATORY - MEDICINE [facility] Oct 02, 2024 01:00 PM AMBULATORY - SURGERY [facility] Oct 21, 2024 01:30 PM AMBULATORY - SURGERY . [facility] Oct 21, 2024 02:30 PM AMBULATORY - SURGERY [facility] Oct 29, 2024 01:00 PM AMBULATORY - REHAB MEDICIN E [facility] November 25, 2024 10:45 AM AMBULATORY - MEDICINE [facility] November 27, 2024 10:30 AM AMBULATORY - SURGERY [facility] November 27, 2024 11:15 AM AMBULATORY - MEDICINE [facility] Active, Pending, and Scheduled Orders This section [...] Range Comment Jul 31, 2024 01:28 PM [facility] GLUCOSE,BLOOD-poct (ST) Specimen Type: BLOOD Comment: Test Performed by: [id number] Meter #: [id number] Ordering Provider: JYOTI LUND Report Released Date/Time: Jul 31, 2024 01:30 PM Reporting Lab: [address] [address] Performing Lab: [address] [address] GLUCOSE,BLOOD -poct (STL) 173 mg/dL H 72-99 Jul 31, 2024 09:05 AM [facility] GLUCOSE,BLOOD-poct (STL) Specimen Type: BLOOD Comment: Test Performed by: [id number] Meter #: [id number] Ordering Provider: JYOTI LUND Report Released Date/Time: Jul 31, 2024 09:08 AM Reporting Lab: [address] [address] Performing Lab: [address] [address] GLUCOSE,BLOOD -poct (STL) 148 mg/dL H 72-99 Jul 03, 2024 11:25 AM [facility] BASIC METABOLIC PANEL Specimen Type: PLASMA Comment: No hemolysis noted. Ordering Provider: JYOTI LUND Report Released Date/Time: Jun 24, 2024 11:11 AM Reporting Lab: [address] [address] Performing Lab: [address] [address] CREATININE 1.17 mg/dL 0.7-1.3 UREA NITROGEN 15.4 [...] [facility] [address] [facility] [address] Performing Lab: [facility] [address] [facility] [address] WBC 8.1 10*3/uL 3.6-11.2 RBC 3.72 10*6/uL [...] PM 97 63 149/[address] [facility] Jul 31, 2024 09:15 AM 97.1 62 177/71 13 [address] [facility] Social History: Smoking Status (Most current) [...] 03, 2004 09:58 AM TOBACCO TERMINATION STAGE [facility] Apr 21, 2003 09:25 AM CURRENT NON-TOBACC O USER-HX OF USE QUIT [address] [place] [address] Apr 21, 2003 09:25 AM CURRENT NON-TOBACC O USER-RECENTLY QUIT quit [address] [place] [address] Apr 21, 2003 09:25 AM TOBACCO USE quit [address] [place] [address] Nov 07, 2002 09:14 AM CURRENT NON-TOBACC O USER-RECENTLY QUIT quit [address] [place] [address] Nov 07, 2002 09:14 AM TOBACCO USE quit [address] [place] [address] Nov 08, 2001 08:09 AM CURRENT NON-TOBACC O USER-HX OF USE quit [address] [facility] Advance Directives: All historical and current Section Date Range: From patient's date of to the date document was created. This section includes ALL of a patient's completed or amended [place] Advance and Rescinded Directives. The entries below indicate that a directive exists for the patient, but an actual copy is not included with this document. The data comes from all [place] facilities. Date Advance Directives Provider Source Mar 26, 2021 ADVANCE DIRECTIVE DISCUSSION Jaqueline LEON [facility] Jun 12, 2014 ADVANCE DIRECTIVE DISCUSSION GÓMEZ ESPINAL [facility] Radiology Reports: +/- 30 days [...] LYMPH NODE IMAGING- P: VAUGHN ZHENG Virginie [id number] -1940 M Exm Date: JUL 30, 2024@12:46 Req Phys: DIAMOND SCRUGGS Loc: [facility]PRE-OP EVAL NURSING AM (Req Img Loc: [facility]NUCLEAR MEDICINE Service: [address] [address] (Case [id number] COMPLETE) NM LYMPHATIC/LYMPH NODE IMAGING (NM Detailed) CPT:43355 Reason for Study: Left Arm Malignant Melanoma (Case [id number] COMPLETE) TC99M TILMANOCEPT (LYMPHOSEEK) (NM Detailed) CPT:A9520 (Case 755 COMPLETE) NON-HEU TC-99M ADD-ON PER STUDY D(NM Detailed) CPT:Q9969 Clinical History: Enter History and Reason for Exam: Wide Local Excision of Left Arm Melanoma with Marlow Lymph Node Biopsy scheduled on 07/31/[address] Jyoti Lund. Patient needs lymphoscintigraphy on 07/30/2024 Enter date AND time of surgery: 07/31/2024 1030 PATIENT HEIGHT: 64 in [162.6 cm] (03/19/2019 14:34) PATIENT WEIGHT: 172 lb [78.02 kg] (04/25/2024 15:04) Report Status: Verified Date Reported: JUL 30, 2024 Date Verified: JUL 30, 2024 Disease And Insect Control Boss E-Sig:/ES/Jonel Marques MD,PhD Report: Patient Name: Lisa [...] Resident: ANABELLA PAIZ, Resident Physician /JONEL MAO [facility] Jul 03, 2024 10:59 AM CHEST X-RAY, 2 VIEWS: VAUGHN ZHENG [id number] -1940 M Exm Date: JUL 03, 2024@10:59 Req Phys: DIAMOND SCRUGGS Loc: [facility]GEN SURG [facility] CL[facility]IC (Req'g Lo Img Loc: -MAIN RADIOLOGY SUITE Service: [facility], [facility] [address] [place] [address] (Case [id number] COMPLETE) CHEST X-RAY, 2 VIEWS (RAD Detailed) CPT:88617 Reason for Study: Pre Op Clinical History: Report Status: Verified Date Reported: JUL 04, 2024 Date Verified: JUL 04, 2024 Disease And Insect Control Boss E-Sig:/ES/KATY MCNEIL MD Report: Case #[id number]. Chest examination. COMPARISON: 05/25/2023. Finding: PA and lateral views of the chest examination shows no evidence of cardiomegaly. Tortuous aorta is seen. No evidence of pulmonary vascular congestion, consolidation or mass. No evidence of pleural effusion or pneumothorax. Impression: No evidence of pulmonary consolidation, mass or lymphadenopathy. Primary Interpreting Staff: KATY MCNEIL MD, Staff Physician - Radiologist (Disease And Insect Control Boss) /JUAN PABLO GONZALEZ [facility] Pathology Reports: +/- 30 days [...] comes from all [place] treatment facilities. Date/Time Pathology Report Provider Source [...] giant cell reaction are noted. IHC for [place]-1 is applied on block B3, B4, B5 [...] Performing Laboratory: Surgical Pathology Report Performed By: [facility] [address] [place], [place] [address]IA# [id number] [address] [address] $FTR - - - - - - - - - - - - - - - - - - - - - - - - - - - - - - - - - - - - - - - - (End of report) ROMAN AVILA MD [facility] Date Aug 06, 2024 - - - - - - - - - - - - - - - - - - - - - - - - - - - - - - - - - - - - - - - - VAUGHN ZHENG STANDARD FORM 515 ID:[id number] SEX:M :1940 AGE: 84 LOC:AP[facility]EE PCP: Melania Kaiser MD /yesenia/ ROMAN AVILA Pathologist Signed: 08/06/2024 10:34 ROMAN AVILA [facility] Encounter Notes: All associated encounter notes This section contains the clinical notes associated to the Encounter. Date/Time Encounter Note(s) Provider Source Jul 31, 2024 01:15 PM ANESTHESIOLOGY SARA WSHEET: LOCAL TITLE: ANES INTRA-OP FLOWSHEET ST STANDARD TITLE: ANESTHESIOLOGY FLOWSHEET DATE OF NOTE: JUL 31, 2024@13:15 ENTRY DATE: JUL 31, 2024@13:15:15 AUTHOR: JYOTI PICKARD COSIGNER: URGENCY: STATUS: COMPLETED Patient: VAUGHN ZHENG SSN: [id number] Date of Operation: 07/31/2024 Surgery Start Time: 07/31/2024 11:53 Surgery End Time: 07/31/2024 13:00 Anesthesia Care Start: 07/31/2024 11:23 Anesthesia Care End: 07/31/2024 13:18 Anesthesia Method: - General 07/31/2024 11:45 (Primary), Airway: Endotracheal Intubation, Technique: Direct Laryngoscopy, Level Of Consciousness: Sedated, Patient Position: Supine, Preoxygenated, Induction Type: Intravenous, Breathing Circuit: [place] Adult, Ventilation by Mask: Easy to Ventilate [...] 2.6-7.5 CM Diagnosis: melanoma left dorsal forearm Holding, Anesthesia, PACU Drugs: --------- Phenylephrine gtt: 866.674 mcg FentaNYL: 150 mcg Lidocaine: 80 mg Sugammadex: 200 mg Phenylephrine: 100 mcg Ondansetron: 4 mg Glycopyrrolate: 0.2 mg ceFAZolin: 2 g Dexamethasone: 4 mg Acetaminophen IVPB: 1 g Holding, Anesthesia, PACU Fluids: Ringers Lactated Solution: 900 ml Estimated Blood Loss: 10 ml Resources: Aquacel foam placed on shanon prominence to protect skin during surgery Safety Belt Staff: --------- HUONG WEATHERS, SURGEON HUONG WEATHERS, ATT. SURGEON NANNETTE HUMMEL ANES. SUPER. FELDMANN, REBECCA, PRIN. ANES. RITTER, BRIAN [facility] REAL ESTATE APPRAISER Procedure Date: 07/31/2024 Procedure Start Time: Procedure End Time: /yesenia/ JYOTI PICKARD CRNA BAND SEWER, Anesthesiology Signed: 07/31/2024 13:15 JYOTI PICKARD [facility]
--- OUTSIDE RECORDS SUMMARY | 2024-10-22 12:15 | XMS_ITS | Encounter Summary ---
Author Name [facility] [place] [facility] [place] Address [address] [place] [address] Care Team Providers Care Ordnance Mechanic Name Role Phone HUONG ROWELL Primary [...] COURTNEY PLUS 1 Jul 24, 2015 [id number] [phone] PAYAM ZHENG PATIENT ANTHEM [place] FEP PREFERRED PROVIDER ORGANIZAT ION (PPO) FEP STAND COURTNEY PLUS 1 Jul 24, 2015 106 [id number] [phone] PAYAM ZHENG [facility] [place] F[place] PREFERRED PROVIDER ORGANIZAT ION (PPO) FEP STAND COURTNEY PLUS 1 Jul 24, 2015 106 [id number] [phone] PAYAM ZHENG PATIENT BCBS FEP RETIREE [id number] Jan 22, 2004 [id number] PAYAM ZHENG PATIENT [place] F[place] PREFERRED PROVIDER ORGANIZAT ION (PPO) FEP STAND COURTNEY PLUS 1 Jul 24, 2015 106 [id number] [phone] PAYAM ZHENG PATIENT [place] FEP PRESCRIPT [place]ON [id number] Jan 22, 2004 [id number] PAYAM ZHENG PATIENT MEDICARE (WNR) MEDICARE (M) PART A Jan 22, 2004 PART A [id number] PAYAM ZHENG PATIENT MEDICARE (WNR) MEDICARE (M) PART B Jan 22, 2004 PART B [id number] PAYAM ZHENG PATIENT MEDICARE (WNR) MEDICARE (M) PART A Jan 22, 2004 PART A [id number] PAYAM ZHENG PATIENT MEDICARE (WNR) MEDICARE (M) PART B Jan 22, 2004 PART B [id number] PAYAM ZHENG PATIENT Selected Encounter This section includes the information on record at [place] for the Encounter. 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 Date/Time Primary/Secondary Diagnosis Diagnosis Name Provider Source Jul 31, 2024 09:11 AM PRIMARY Malignant melanoma of left upper limb, including shoulder SPIKE MACHADO [facility] Plan of Treatment: Future Appointments [...] 03, 2024 02:29 PM AMBULATORY - MEDICINE [facility] Aug 07, 2024 09:20 AM AMBULATORY - SURGERY [facility] Aug 16, 2024 08:15 AM AMBULATORY - SURGERY [facility] Aug 21, 2024 10:00 AM AMBULATORY - SURGERY [facility] Aug 28, 2024 09:00 AM AMBULATORY - MEDICINE [facility] Sep 05, 2024 09:00 AM AMBULATORY - SURGERY [facility] Sep 19, 2024 01:00 PM AMBULATORY - SURGERY [facility] Sep 27, 2024 11:00 AM AMBULATORY - SURGERY [facility] Oct 02, 2024 11:15 AM AMBULATORY - MEDICINE [facility] Oct 02, 2024 01:00 PM AMBULATORY - SURGERY [facility] Oct 21, 2024 01:30 PM AMBULATORY - SURGERY [facility] Oct 21, 2024 02:30 PM AMBULATORY - SURGERY [facility] Oct 29, 2024 01:00 PM AMBULATORY - REHAB MEDICIN E [facility] November 25, 2024 10:45 AM AMBULATORY - MEDICINE [facility] November 27, 2024 10:30 AM AMBULATORY - SURGERY [facility] November 27, 2024 11:15 AM AMBULATORY - MEDICINE [facility] Active, Pending, and Scheduled Orders This [...] 01:29 PM Pharmacy - Clinic Medication Order [facility] Lab Results: +/- 30 [...] Range Comment Jul 31, 2024 01:28 PM [facility] GLUCOSE,BLOOD-poct (STL) Specimen Type: BLOOD Comment: Test Performed by: [id number] Meter #: [id number] Ordering Provider: JYOTI LUND Report Released Date/Time: Jul 31, 2024 01:30 PM Reporting Lab: [address] [address] Performing Lab: [address] [address] GLUCOSE,BLOOD -poct (STL) 173 mg/dL H 72-99 Jul 31, 2024 09:05 AM [facility] GLUCOSE,BLOOD-poct (STL) Specimen Type: BLOOD Comment: Test Performed by: [id number] Meter #: [id number] Ordering Provider: JYOTI LUND Report Released Date/Time: Jul 31, 2024 09:08 AM Reporting Lab: [address] [address] Performing Lab: [address] [address] GLUCOSE,BLOOD -poct (STL) 148 mg/dL H 72-99 Jul 03, 2024 11:25 AM [facility] BASIC METABOLIC PANEL Specimen Type: PLASMA Comment: No hemolysis noted. Ordering Provider: JYOTI LUND Report Released Date/Time: Jun 24, 2024 11:11 AM Reporting Lab: [address] [address] Performing Lab: [address] [address] CREATININE 1.17 mg/dL 0.7-1.3 UREA NITROGEN 15.4 mg/dL 9.0-25.0 GLUCOSE 175 mg/dL H 72-99 SODIUM 140 meq/L 136-145 POTASSIUM 4.3 meq/L 3.5-5 CHLORIDE 106 meq/L 98-107 CARBON DIOXIDE 25 meq/L 22-31 CALCIUM 9.0 mg/dL 8.4-10.4 EGFR (CKD-EPI 2020) 61.1 >60 Jul 03, 2024 11:25 AM [facility] CBC Specimen Type: BLOOD No comment entered. Ordering Provider: JYOTI LUND Report Released Date/Time: Jun 24, 2024 11:11 AM Reporting Lab: [facility] [address] [address] Performing Lab: [facility] [address] [facility] [address] WBC 8.1 10*3/uL 3.6-11.2 RBC 3.72 10*6/uL [...] PM 97 63 149/60 11 99 1 [facility] Jul 31, 2024 09:15 AM 97.1 62 177/71 13 100 0 63 169.5 30 [facility] Social History: Smoking Status [...] 03:10 PM QUIT TOBACCO >7 YEARS AGO [facility] Tobacco Use History This section includes a history of the smoking, or tobacco-related health factors, that were collected on or before the date of the Encounter. The data comes from the [place] facility where the Encounter took place. Date/Time Smoking Status/Tobacco Use Comment F raquel May 20, 2014 09:22 AM QUIT TOBACCO >7 YEARS AGO [facility] Feb 19, 2013 09:01 AM QUIT TOBACCO >7 YEARS AGO [facility] December 20, 2006 08:06 AM QUIT TOBACCO >7 YEARS AGO [facility] Jun 12, 2006 09:00 AM CURRENT NON-TOBACC O USER-HX OF USE [facility] Jun 12, 2006 09:00 AM TOBACCO TERMINATION STAGE [facility] December 07, 2005 11:12 AM CURRENT NON-TOBACC O USER-HX OF USE [facility] December 07, 2005 11:12 AM TOBACCO TERMINATION STAGE [facility] Mar 21, 2005 01:46 PM CURRENT NON-TOBACC O USER-HX OF USE [facility] Mar 21, 2005 01:46 PM TOBACCO TERMINATION STAGE [facility] Mar 03, 2004 09:58 AM CURRENT NON-TOBACC O USER-HX OF USE [facility] Mar 03, 2004 09:58 AM TOBACCO TERMINATION STAGE [facility] Apr 21, 2003 09:25 AM CURRENT NON-TOBACC O USER-HX OF USE QUIT 1972 [facility] Apr 21, 2003 09:25 AM CURRENT NON-TOBACC O USER-RECENTLY QUIT quit 1971 [facility] Apr 21, 2003 09:25 AM TOBACCO USE quit 1971 [facility] Nov 07, 2002 09:14 AM CURRENT NON-TOBACC O USER-RECENTLY QUIT quit 1971 [facility] Nov 07, 2002 09:14 AM TOBACCO USE quit 1971 [facility] Nov 08, 2001 08:09 AM CURRENT NON-TOBACC O USER-HX OF USE quit 20 yrs. ago [facility] Advance Directives: All historical and current Section Date Range: From patient's date of to the date document was created. This section includes ALL of a patient's completed or amended [place] Advance and Rescinded Directives. The entries below indicate that a directive exists for the patient, but an actual copy is not included with this document. The data comes from all [place] facilities. Date Advance Directives Provider Source Mar 26, 2021 ADVANCE DIRECTIVE DISCUSSION Jaqueline LEON [facility] Jun 12, 2014 ADVANCE DIRECTIVE DISCUSSION GÓMEZ ESPINAL [facility] Radiology Reports: +/- 30 [...] the Encounter. The data comes from all [place] treatment facilities. Date/Time Radiology Report Provider Source Jul 30, 2024 12:46 PM [place] LYMPH NODE IMAGING- P: VAUGHN ZHENG [id number] -[id number] M Exm Date: JUL 30, 2024@12:46 Req Phys: DIAMOND SCRUGGS Loc: [facility]-PRE-OP EVAL NURSING AM (Req Img Loc: [facility]NUCLEAR MEDICINE Service: [address] [address] (Case [id number] COMPLETE) [place] LYMPHATIC/LYMPH NODE IMAGING ([place] Detailed) CPT:09883 Reason for Study: Left Arm Malignant Melanoma (Case [id number] COMPLETE) TC99M TILMANOCEPT (LYMPHOSEEK) ([place] Detailed) CPT:A9520 (Case 755 COMPLETE) NON-HEU TC-99M ADD-ON PER STUDY D([place] Detailed) CPT:Q9969 Clinical History: Enter History and Reason for Exam: Wide Local Excision of Left Arm Melanoma with Hubert Lymph Node Biopsy scheduled on 07/31/[address] Jyoti Lund. Patient needs lymphoscintigraphy on 07/30/2024 Enter date AND time of surgery: 07/31/2024 1030 PATIENT HEIGHT: 64 in [162.6 cm] (03/19/2019 14:34) PATIENT WEIGHT: 172 lb [78.02 kg] (04/25/2024 15:04) Report Status: Verified Date Reported: JUL 30, 2024 Date Verified: JUL 30, 2024 Auto Clocks Repairer E-Sig:/ES/Jonel Marques MD,PhD Report: Patient Name: Lisa [...] by Anabella Paiz MD (Nuclear Medicine resident). IJonel, have reviewed the images and report and concur with these findings. Primary Interpreting Staff: Jonel Marques MD,PhD, Nuclear Medicine Physician (Rj) Primary Interpreting Resident: ANABELLA PAIZ, Resident Physician /JONEL MAO [facility] Jul 03, 2024 10:59 AM CHEST X-RAY, 2 VIEWS: VAUGHN ZHENG [id number] -[id number] M Exm Date: JUL 03, 2024@10:59 Req Phys: DIAMOND SCRUGGS Pat Loc: [facility]GEN SURG [facility] CLINIC (Req'g Lo Img Loc: -MAIN RADIOLOGY SUITE Service: Unknown [facility] [address] [address] [place] [address] (Case [id number] COMPLETE) CHEST X-RAY, 2 VIEWS (RAD Detailed) CPT:44422 Reason for Study: Pre Op Clinical History: Report Status: Verified Date Reported: JUL 04, 2024 Date Verified: JUL 04, 2024 Auto Clocks Repairer E-Sig:/ES/KATY MCNEIL MD Report: Case #[id number]. Chest examination. COMPARISON: 05/25/2023. Finding: PA and lateral views of the chest examination shows no evidence of cardiomegaly. Tortuous aorta is seen. No evidence of pulmonary vascular congestion, consolidation or mass. No evidence of pleural effusion or pneumothorax. Impression: No evidence of pulmonary consolidation, mass or lymphadenopathy. Primary Interpreting Staff: KATY MCNEIL MD, Staff Physician - Radiologist (Auto Clocks Repairer) /JUAN PABLO GONZALEZ [facility] Pathology Reports: +/- 30 days [...] the Encounter. The data comes from all [place] treatment facilities. Date/Time Pathology Report Provider Source [...] - - - - - GROSS DESCRIPTION: (JieIsaiasIvone, 07-31-2024) The specimens are received in formalin, [...] giant cell reaction are noted. IHC for [place]-1 is applied on block B3, B4, B5 [...] Performing Laboratory: Surgical Pathology Report [facility] By: [facility] CLIA# [id number] 5 [facility] [address] [place] [address] $FTR - - - - - - - - - - - - - - - - - - - - - - - - - - - - - - - - - - - - - - - - (End of report) ROMAN AVILA MD [facility] Date Aug 06, 2024 - - - - - - - - - - - - - - - - - - - - - - - - - - - - - - - - - - - - - - - - VAUGHN ZHENG STANDARD FORM 515 ID:[id number] SEX:M :1940 AGE: 84 LOC:APFEE PCP: Kristina Panchal MD /yesenia/ ROMAN AVILA Pathologist Signed: 08/06/2024 10:34 ROMAN AVILA [facility] Encounter Notes: All associated encounter notes This section contains the clinical notes associated to the Encounter. Date/Time Encounter Note(s) Provider Source Jul 31, 2024 01:44 PM EDUCATION DISCHARG E NOTE: LOCAL TITLE: AETC DISCHARGE INSTRUCTIONS [facility] STANDARD TITLE: EDUCATION DISCHARGE NOTE DATE OF NOTE: JUL 31, 2024@13:44 ENTRY DATE: JUL 31, 2024@13:44:55 AUTHOR: SPIKE MACHADO EXP COSIGNER: HUONG WEATHERS URGENCY: STATUS: COMPLETED 1. DIAGNOSES: Other: Other (specify below) s/p left forearm wound skin grafting from left thigh 2. FUTURE APPOINTMENT(S): *To reschedule [facility] appointments call and use extension below. date/time clinic phone number 10/02/24 11:15 am [facility] [phone] 11/25/24 10:45 am [facility] [phone] 11/27/24 10:30 am [facility] [phone] *This listing may be incomplete. Please refer to Appointment Mgmt.listing for any additional patient appointments 3. DISCHARGE MEDICATIONS: TO HELP YOU UNDERSTAND YOUR DRUG LIST ACTIVE ...means that you are presently taking these meds. SUSPENDED means that your prescription is active and in the mail order process. PENDING ..means that the medication has just been renewed, or, just ordered. HOLD .....means that the medication is active on your list, but will not be processed until pharmacy receives further instructions from you or your doctor to proceed with filling the prescription for delivery. NON-VA ...means you are getting the medication from somewhere besides the [facility]. Active Outpatient Medications (including Supplies): Pending Outpatient Medications Status 1) ACETAMINOPHEN 325MG TAB TAKE TWO TABLETS BY MOUTH FOUR TIMES PENDING A DAY CAUTION: DO NOT EXCEED 4000MG PER DAY ACETAMINOPHEN (APAP) FROM ALL MEDS. Indication: FOR PAIN 2) CEPHALEXIN 500MG CAP TAKE ONE CAPSULE BY MOUTH THREE TIMES A PENDING DAY TAKE WITH FOOD. TAKE UNTIL GONE UNLESS OTHERWISE DIRECTED. Indication: POSTOPERATIVE PROPHYLAXIS 3) OXYCODONE HCL 5MG TAB TAKE ONE TABLET BY MOUTH EVERY 6 HOURS PENDING NEEDED MAY CAUSE CONSTIPATION Indication: FOR POST-OPERATIVE [...] POWDER,ORAL BY MOUTH ACTIVE 15 Total Medications NEW MEDICATIONS (and indicatons): oxycodone - postop pain control keflex - postop antibiotic prophylaxis The following changes were made to the medications you were taking prior to this hospitalization: none These medications have been stopped during your hospitalization (and reason why): none At your next appointment, please remember to bring all of your medication bottles with you Medication Reconciliation: I have discussed active and pending medications with the patient and/or medicare contact specialist. I have made changes as appropriate................ .YES 4. DISCHARGE INTRUCTIONAL MATERIALS *To be printed by Nurse and provided to patient Take tylenol 500mg and ibuprofen 400mg every 6 hours for pain. Take oxycodone if pain remains uncontrolled. Take the prescribed antibiotic (keflex) three times per day with food 5. WOUND MANAGEMENT: Keep the left arm and left thigh dressing dry and intact until your follow-up appointment. If the left arm dressing is too tight, you can loose the splint and dressing. Elevate your left hand above level of heart as much as possible Avoid moving your left wrist as much as possible 6. DISCHARGE DIETARY INSTRUCTIONS: No Dietary Instructions If you have questions, contact the dietitians at [phone]. 7. DISCHARGE PHYSICAL ACTIVITY INSTRUCTIONS: Other (specify below) no lifting >5 lbs with left hand 8. OTHER (Include employment status): 9. WORSENING and/or DANGEROUS SYMPTOMS TO REPORT (Phys. entry required): fever, chills, worsening numbness/tingling in left hand Specialist Information: Follow-up with your Primary Care Physician or Specialist or call [facility] Helpline: [phone] NOTE: If you are having feelings of Depression or Emotional Distress, or feel you just need to talk with someone, please call [phone] PRESS 1. The patient/family has been provided a copy of these discharge instructions. __ Patient/Guardian Signature __ Nurse Signature DATE OF DISCHARGE: JUL 31, 2024 ALLERGIES: Patient has answered NKA Team Information Primary Care Team: -[place] [facility] *WH* Associate Provider: JANKI BURROUGHS Position: RESIDENT (PHYSICI PC Provider: KRISTINA PANCHAL Position: PHYSICIAN-ATTENDI /yesenia/ Spike Machado MD Resident - Plastic Surgery Signed: 07/31/2024 13:46 /yesenia/ HUONG WEATHERS MD, PhD Staff Physician, Plastic Surgery Cosigned: 08/02/2024 10:51 SPIKE MACHADO [facility] Jul 31, 2024 01:43 PM OPERATIVE NOTE: LOCAL TITLE: BRIEF OP NOTE STL STANDARD TITLE: OPERATIVE NOTE DATE OF NOTE: JUL 31, 2024@13:43 ENTRY DATE: JUL 31, 2024@13:43:21 AUTHOR: SPIKE MACHADO EXP COSIGNER: HUONG WEATHERS URGENCY: STATUS: COMPLETED Date of Surgery:Jul Surgery Case #:[id number] Pre-Operative Diagnosis:Left forearm melanoma s/p excision Post-Operative Diagnosis:same Surgery Performed:split-thickness skin grafting from left thigh to left forearm wound, 25 cm^2 Attending:Huong Weathers MD PhD Surgeon:Spike Machado MD 1st Diesel Mechanic Construction:none Type of Anesthesia:general Specimens:No If yes, Type and number of specimens: Findings: see op report Complications:none Estimated Blood Loss:10 cc total Blood Given? No If yes, how much? Fluid Replacement:700 cc Status En-Route to PACU? Critical: Satisfactory: Operative Note Dictation Job#: /yesenia/ Spike Machado MD Resident - Plastic Surgery Signed: 07/31/2024 13:44 /yesenia/ HUONG WEATHERS MD, PhD Staff Physician, Plastic Surgery Cosigned: 08/02/2024 10:51 SPIKE MACHADO [facility] Jul 31, 2024 10:55 AM SURGERY ATTENDING NOTE: LOCAL TITLE: ATTENDING SURGEON PREOPERATIVE STL STANDARD TITLE: SURGERY ATTENDING NOTE DATE OF NOTE: JUL 31, 2024@10:55 ENTRY DATE: JUL 31, 2024@10:55:47 AUTHOR: HUONG WEATHERSER: URGENCY: STATUS: COMPLETED Surgical H&P Date of Planned Procedure: Jul Surgical H&P Dated Jul reviewed on Jul Surgical H&P completed within 30 days of planned procedure:Yes Attending Surgeon Preoperative STL completed within 24 hours of procedure? Yes Changes noted to the H&P:NO I have seen and examined the patient and agree with the H&P, assessment and plan. YES Preoperative Findings/Diagnosis: left arm melanoma Plan/Procedure: Closure of left arm wound. Possible skin graft, possible Integra, possible tissue transfer. /es/ HUONG WEATHERS MD, PhD Staff Physician, Plastic Surgery Signed: 07/31/2024 10:57 HUONG WEATHERS [facility] Jul 31, 2024 09:33 AM NURSING NOTE: LOCAL TITLE: MNAES NSG IV INSERTION AND MAINTENANCE STANDARD TITLE: NURSING NOTE DATE OF NOTE: JUL 31, 2024@09:33 ENTRY DATE: JUL 31, 2024@09:33:32 AUTHOR: MAEVE COVARRUBIAS EXP SALINAER: URGENCY: STATUS: COMPLETED Version 2.2 Charting in accordance with [place] APPROVED [place] STANDARD (MNAES) ACUTE INPATIENT/REHABILITATION NURSING ADMISSION SCREENING, ASSESSMENT, AND STANDARDS OF CARE IV Line Insertion and Maintenance Peripheral IV Line #1: Insertion: Date/Time: Jul@09:10 Inserted by (name): Maeve Covarrubias RN Location: Right, Forearm Gauge: / MAEVE COVARRUBIAS REGISTERED NURSE Signed: 07/31/2024 09:35 MAEVE OCVARRUBIAS [facility] Jul 31, 2024 09:23 AM SURGERY NURSING [place] NILS NOTE: LOCAL TITLE: MANOJ AETC PREOPERATIVE-PREPROCEDURAL STL STANDARD TITLE: SURGERY NURSING PROCEDURE NOTE DATE OF NOTE: JUL 31, 2024@09:23 ENTRY DATE: JUL 31, 2024@09:23:48 AUTHOR: MAEVE COVARRUBIAS EXP COSIGNER: URGENCY: STATUS: COMPLETED MANOJ CHAUDHARITC PREOPERATIVE-PREPROCEDURAL STL Has ADDENDA AETC PRE-OPERATIVE/PRE-PROCEDURA L ASSESSMENT TEST Procedure:Wide local excision of left arm melanoma,with sentinel lymph node biopsy Service:Plastics ARRIVAL TIME: Jul@08:20 VITAL SIGNS: Temperature:97.1 F [36.2 C] (07/31/2024 09:15) Blood Pressure:177/71 (07/31/2024 09:15) Pulse:62 (07/31/2024 09:15) Respirations:13 (07/31/2024 09:15) 100% (07/31/2024 09:15) Weight:169.5 lb [76.88 kg] (07/31/2024 09:15) Responsible Libertarian(Water Pumper) Name:Marti Contact number: [phone] Current residence Home NPO since Midnight Yes Allergies: Patient has answered NKA Are you taking any blood thinners:No Medications taken since Midnight:Yes If Yes, list medications:Pt states he took his allergy, heart and blood pressure meds with sips of water at 7am this morning. Pt states he did not take his lisinopril as instructed History of illicit drug use? No History of cancer diagnosis? No History of radiation therapy to planned surgical field(s)?No History of sleep apnes?No If yes, do you currently use CPAP machine? NoComment: Vision Aids Eyeglasses Comment:eye glasses and phone given to pt's Dentures:No Hearing Aides:Yes Comment:Bilateral hearing aids, removed Ambulatory Aides:No Personal Belongings Secured in locker. Comment:pt's took eye glasses, phone. Pt's hearing aids are in belonging bag in pt's pants pocket. Labs completed:No Diabetes:Yes If yes: Comment:Blood sugar checked, 148 at 09:10am. Pt states he last took his diabetic medication yesterday morning, skipped last evening dose. Do you currently have any open or draining wounds? No Pain No Intraveneous access Peripheral access line. Location: Right arm Size: 18guage Do you have a history of tobacco use?Yes No tobacco use in the last 12 months If yes how often: Comment:Quit many years ago Do you have an Advance Directive?No Nursing care plan STANDARD OF CARE / PRACTICE INITIAL NURSING DIAGNOSIS: AETC Alteration in Comfort and Knowledge Related to: Invasive procedure: Wide local excision of le EXPECTED OUTCOMES: Patient Will: Verbalize an understanding of procedure. Target Date:Jul Verbalize effective use of pain medication. Target Date:Jul Be free of complications post-procedure. Target Date:Jul Verbalize knowledge of discharge instructions and follow-up care. Target Date:Jul NURSING INTERVENTIONS: PHYSIOLOGICAL 1. Assess and monitor vital signs and respiratory status pre and post-procedure. INITIATED 2. Assess need for PT/OT instruction prior to procedure (i.e.,crutch training). INITIATED 3. Assess incision site/dressing for drainage, bleeding, hematoma, and site pain post-procedure. INITIATED 4. Initiate appropriate wound care post-procedure. INITIATED 5. Maintain IV access and parenteral infusions pre and post- procedure. INITIATED 6. Assess post-procedure for adequate oral intake, urinary elimination, and return of prior motor function. INITIATED COMFORT 7. Monitor for pain (location, intensity, frequency and precipitating factors). INITIATED 8. Administer, evaluate and document the effectiveness of pain medication. INITIATED SAFETY 9. Keep call light within reach and reinforce calling for assistance as needed. INITIATED 10. Explain and reinforce smoking policy. INITIATED 11. Other: INITIATED INFECTION CONTROL 12. Maintain Standard Precautions and explain need to patient/significant others. INITIATED EQUIPMENT NEEDS 13. Assess and provide equipment/supplies required to provide safe patient care. INITIATED KNOWLEDGE (PATIENT EDUCATION) 14. Provide teaching specific to patient's needs: NPO status IV therapy Pain management Early mobility Turning, coughing and deep breathing Incentive spirometer KIMBER hose Other: INITIATED 15. Instruct patient/significant other on homecare requirements. INITIATED 16. Signs and symptoms to report to health care team. INITIATED PSYCHOSOCIAL / FUNCTIONAL 17. Encourage feedback related to patient's expectations/concerns related to procedure. INITIATED 18. Assess patient/significant other's ability to manage and comply with discharge instructions. INITIATED DISCHARGE PLANNING 19. Assure appropriate transportation available upon discharge. INITIATED 20. Encourage patient to keep all follow-up clinic appointments. INITIATED 21. Continue discharge planning/aftercare with patient/significant other using interdisciplinary approach: X Physician/Service: Plastics PT OT Community Support Groups: Other: INITIATED 22. Other interventions specific to patient: INITIATED THE ABOVE EXPECTED OUTCOMES (GOALS) HAVE BEEN MUTUALLY SET WITH: Patient X Physician/Service: Plastics PT OT Community Support Groups: Other: INITIATED /yesenia/ MAEVE COVARRUBIAS REGISTERED NURSE Signed: 07/31/2024 09:33 07/31/2024 ADDENDUM STATUS: COMPLETED 11:20am-Passport of care done. To OR via stretcher with OR team. /joss COVARRUBIAS REGISTERED NURSE Signed: 07/31/2024 12:09 07/31/2024 ADDENDUM STATUS: COMPLETED Received pt. from PACU @1410, A&O x4, c/o left axilla soreness, no pain, VSS, lizz wrap dressing to left thigh CDI, dressing and brace to left forearm CDI, incision to left axilla closed with Dermabond and open to air, no drainage noted, pt. voided once off the stretcher, provided a sack lunch, tolerating well, at bedside, bed in low position, call light within reach, will discharge pt. when criteria met and ready. /yesenia/ DELANEY FLORES LPN REGISTERED NURSE STUDENT Signed: 07/31/2024 14:29 MAEVE COVARRUBIAS. NOEMI [facility] Jul 31, 2024 09:09 AM PLASTIC SURGERY NO TE: LOCAL TITLE: PLASTIC SURGERY NOTE STANDARD TITLE: PLASTIC SURGERY NOTE DATE OF NOTE: JUL 31, 2024@09:09 ENTRY DATE: JUL 31, 2024@09:09:19 AUTHOR: SPIKE MACHADO EXP COSIGNER: HUONG WEATHERS URGENCY: STATUS: COMPLETED Name: VAUGHN ZHENG : Jan SSN: [id number] Date of Service: JUL 31, 2024 HPI: No changes to H&P in chart since last seen in clinic. Patient notes no changes to PMH/PSH since his last clinic visit. Negative family history No relevant social history ROS: Gen - denies recent weight loss/gain Neuro- denies seizures, new muscle weakness, dizziness HEENT - denies headache, blurry/double vision, hearing loss, tinnitus, sore throat, hoarseness RESP - denies cough, dyspnea, wheezing, hemoptysis CV - denies cheset pain, syncope GI - denies nausea, vomiting, diarrhea, abdominal pian, melena, hematochezia - denies increased hematuria MSK - denies new onset back pain, joint pain Endo - denies new heat/cold intolerance Objective: Weight: 76.77 kg Height: 63 in [160.0 cm] (07/03/2024 10:26) Vitals: No data available Physical exam Gen: NAD Neuro: No focal deficits HEENT: NC/AT CV: RR RESP: NLB ABD: Soft, ND EXT: WWP Assessment/Plan: 84 year old MALE with left forearm melanoma. Wide local excision and SLNB to be performed by general surgery team. - To OR today for reconstruction left forearm wound with skin grafting, possible primary closure with plastic surgery team - All risks/benefits/alternatives examined. All questions answered. Patient endorses understanding and wishes to proceed. Consent is signed and in CPRS. - Preoperative ABX ordered. - NPO. - Preoperative checklist has been filled out by provider. - Please page PRS with any questions or concerns. /yesenia/ Spike Machado MD Resident - Plastic Surgery Signed: 07/31/2024 09:17 /es/ HUONG WEATHERS MD, PhD Staff Physician, Plastic Surgery Cosigned: 07/31/2024 10:55 JEANNETTE,SPIKE LILLY [facility] Jul 31, 2024 07:50 AM SURGERY ATTENDING NOTE: LOCAL TITLE: ATTENDING SURGEON PREOPERATIVE STL STANDARD TITLE: SURGERY ATTENDING NOTE DATE OF NOTE: JUL 31, 2024@07:50 ENTRY DATE: JUL 31, 2024@07:50:30 AUTHOR: JYOTI LUND EXP COSIGNER: URGENCY: STATUS: COMPLETED Surgical H&P Date of Planned Procedure: Jul Surgical H&P Dated Jul reviewed on Jul Surgical H&P completed within 30 days of planned procedure:Yes Attending Surgeon Preoperative STL completed within 24 hours of procedure? Yes Changes noted to the H&P:YES I have seen and examined the patient and agree with the H&P, assessment and plan. YES Preoperative Findings/Diagnosis: melanoma Plan/Procedure: montaño excision arm melanoma, SLNB /es/ JYOTI LUND Staff Physician - General Surgery Signed: 07/31/2024 10:37 JYOTI LUND [facility]
--- OUTSIDE RECORDS SUMMARY | 2024-10-22 12:16 | XMS_ITS | Data Portability ---
Author Organization [facility], Main Office Address [address] [place] [address] Care Team Providers Care Volunteer Manager Name Role Phone JANKI GRIGGS Primary Care Provider JANKI GRIGGS Referring Provider [phone] ERIK BETANCOURT Primary Care Provider ERIK BETANCOURT Referring Provider [phone] Assessment Encounter Date Assessment Date Assessment LastModified [...] in 2019 which showed medial compartment is cpza-[id number]-ejfk in the left knee on a PA [...] more than half the time spent in bfyt-ug-pcor care. I will see him back on [...] procedure, administere d by provider 2022 023 [email or web address] In-Office Order, Internal Use Only DO Not Attach Compendium DO Not Attach Compendium, Do Not Delete/merge, [id number] 3 10:53:51 injection/a spiration joint/bursa (PROC) - in office procedure, administere d by provider 2022 023 [email or web address] In-Office Order, Internal Use Only DO Not Attach Compendium DO Not Attach Compendium, Do Not Delete/merge, [id number] 3 12:33:59 Surgeries None recorded. Imaging XR, knee 2022 023 [email or web address] [facility] [place], [facility] [facility] [address], [place], [address], 3 13:29:01 Medication Orders Kenalog 10 mg/mL suspension for injection [address] [facility], [address] [place] [address], [id number], 3 10:08:54 ropivacaine (PF) 5 mg/mL (0.5 %) injection solution [address] [facility], [address] [place] [address], [id number], 3 10:08:54 Kenalog 10 mg/mL suspension for injection [address] [facility], [address] [place] [address], [id number], 3 12:38:25 ropivacaine (PF) 5 mg/mL (0.5 %) injection solution [address] [facility], [address] [place] [address], [address], 3 12:38:25 Patient TargetsNo targets recorded. Patient InstructionsNo instructions recorded. Reason for Referral None Reported. Results Created Date Observation Date Name Description Value Unit Range Abnormal Flag Note LastModifiedBy Organization Detail LastModifiedTime 03/31/20 21 XR, knee No observ ation record ed. [id number] [facility] [place] [address], [place], [address], 09/21/2022 21:14:09 04/21/20 21 XR, knee, 3 view No observ ation record ed. [id number] [facility] [place] [address], [place], [address], 09/21/2022 21:14:09 10/23/19 22 XR, knee No observ ation record ed. [id number] [facility] [place] [address], [place], [address], 09/21/2022 21:14:09 06/05/20 23 XR, knee No observ ation record ed. [email or web address] [facility] [place] [address], [place], [address], 06/05/2023 13:29:00 Result Notes None recorded. Problems Name Problem SNOMED Code Status Onset Date Resolution Date Notes Provider Name and Address Organization Details Recorded Time Osteoarthr itis 340510879 Active Not Available [facility] 3 21:12:20 Pain of left knee joint 6861700564593 07 Active 2022 BONNY Linton, 50ed[age] [facility] 3 12:29:25 Osteoarthr itis of left knee joint 6614804306755 09 Active 2022 BONNY Linton, TR [employer] [facility] 3 10:52:12 Problem Notes None recorded. Procedures Surgical History Date Name Laterality Status Provider Name and Address Organization Details Recorded Time procedure on gallbladder completed Not Available [facility] 09/21/2022 21:11:21 resection of diverticulum completed Not Available [facility] 09/21/2022 21:11:21 Unlisted px cardiac surgery completed [facility] 09/21/2022 21:11:21 Appendectomy completed Not Available [facility] 09/21/2022 21:11:21 Colon Resection completed Not Available [facility] 09/21/2022 21:11:21 Retina completed Not Available [facility] 07/2022 21:11:21 Hernia Repair completed Not Available [facility] 09/21/2022 21:11:21 Imaging Results Imaging Date Name Status LastModified by Organiz ation Details LastModified Time 10/22/2021 XR, knee completed [id number] [facility] [place] [address] [facility] [address], [place], [address], 09/21/2022 21:14:09 03/31/2021 XR, knee completed [id number] 26 [facility] [place] [address] [facility] [address], [place], [address], 09/21/2022 21:14:09 04/21/2021 XR, knee, 3 view completed [id number] [facility] [place] [address], [place], [address], 09/21/2022 21:14:09 06/05/2023 XR, knee completed [email or web address] [facility] [place] [address] [facility] [address], [place], [address], 06/05/2023 13:29:00 Procedure Notes None recorded. Medical [...] suspension for injection in office 2022 active [facility] [place]NOTE 2]: 0003- 0494- 20 Not Available Not Available [...] administe red by the provider 10/22 completed [facility] [place]NOTE 2]: 0409- 4276- 17 Not Available Not Available [...] Updated DateTime 11/04/2021 40.4 kg/m2 167.64 cm 382075.09 g Not Available [facility] 09/21/2022 21:11:27 Date Recorded Body height Provider Name an d Address Organization Details Last Updated DateTime 10/13/2022 167.64 cm [facility] 10/13/2022 12:28:52 Date Recorded Body height Provider Name an d Address Organization Details Last Updated DateTime 05/24/2023 167.64 cm BONNY Linton [facility] 05/24/2023 10:51:37 Social History Question Answer Notes LastModified by Organizat ion Details LastModified Time Tobacco Smoking Status Current Every Day Smoker Not Available [facility] 09/21/2022 21:11:01 What Is Your Level Of Alcohol Consumption? None [id number] Information not available 09/21/2022 Sex: Unknown Functional Status None recorded. Mental Status None recorded. Family History Relationship Description Onset Age of this Age Resolved Age Notes LastModified by Organization Details LastModified Time Mother Heart disease [id number] Not available 09/21/2022 21:11:22 Father Hypertensive disorder [id number] Not available 09/21/2022 21:11:22 Son Blood coagulation disorder [id number] Not available 09/21/2022 21:11:22 Medical History Condition Response ARTHRITIS Y SKIN PROBLEMS Y DIABETES, TYPE Y Past Encounters Encounter ID Performer Location Encounter Start Date Encounter Closed Date Diagnosis/Indication Diagnosis SNOMED-CT Code Diagnosis ICD10 Code Diagnosis Note [id number] [facility] [place] [address] [facility] [address] [place] [address] 03/31/2021 00:00:00 03/31/2021 16:17:42 [id number] [facility] [place] [address] [facility] [address] [place] [address] 04/21/2021 00:00:00 04/21/2021 16:00:50 [id number] [facility] [place] [address] [facility] [address] [place] [address] 10/22/2021 00:00:00 10/22/2021 12:12:[address] [id number] [facility] [address] [address] 11/04/2021 00:00:00 11/04/2021 11:26:25 [id number] Jorge Malin MD [facility] [address] [place] [address] 10/13/2022 12:05:32 10/13/2022 14:19:59 Pain of left knee joint 6400008134 06182 M25.696 [id number] TAMIKA Antoine [facility] [place] [address] [facility] [address] [place] [address] 05/24/2023 10:43:51 05/24/2023 12:13:17 Osteoarthritis of left knee joint 6202551602 76103 M17.12 Health Concerns Section Related Observation LastModified by Organization Detai ls LastModified Time None Recorded Concern Status LastModified by Organization Details LastModified Time None Recorded Advance Directives Directive None Recorded Payers Encounter Date Sequence Insurance Name Policy Number Policy Herrera Covered Member ID Herrera Member ID Guarantor Name 10/13/2022 1 [place] Loy Gonzalez [id number] Loy Gonzalez 10/13/2022 2 [place] 106 Loy Gonzalez [id number] Loy Gonzalez 05/24/2023 1 [place] Gonzalez [id number] Loy Gonzalez 05/24/2023 2 [place] 106 Loy Gonzalez [id number] Loy Gonzalez
--- OUTSIDE RECORDS SUMMARY | 2024-10-22 12:16 | XMS_ITS | Encounter Summary ---
Author Name [facility] [facility] [place] [facility] [place] [facility] [place] Address [address] [place] [address] Care Team Providers Care Emergency Medical Technician Name Role Phone HUONG ROWELL Primary Care [...] COURTNEY PLUS 1 Jul 24, 2015 106 [id number] [phone] PAYAM ZHENG PATIENT ANTHEM [employer] FEP PREFERRED PROVIDER ORGANIZAT ION (PPO) FEP STAND COURTNEY PLUS 1 Jul 24, 2015 106 [id number] [phone] PAYAM ZHENG [facility] PATIENT ANTHEM [place] FEP PREFERRED PROVIDER ORGANIZAT ION (PPO) FEP STAND COURTNEY PLUS 1 Jul 24, 2015 106 [id number] [phone] PAYAM ZHENG [facility] PATIENT [employer] FEP RETIREE [id number] Jan 22, 2004 [id number] PAYAM ZHENG PATIENT [place] FEP PREFERRED PROVIDER ORGANIZAT ION (PPO) FEP STAND COURTNEY PLUS 1 Jul 24, 2015 106 [id number] [phone] PAYAM ZHENG PATIENT [place] FEP PRESCRIPT ION [id number] Jan 22, 2004 [id number] [phone] PAYAM ZHENG PATIENT MEDICARE (WNR) MEDICARE (M) PART A Jan 22, 2004 PART A [id number] PAYAM ZHENG PATIENT MEDICARE (WNR) MEDICARE (M) PART B Jan 22, 2004 PART B [id number] [phone] PAYAM ZHENG PATIENT MEDICARE (WNR) MEDICARE (M) PART A Jan 22, 2004 PART A [id number] PAYAM ZHENG PATIENT MEDICARE (WNR) MEDICARE (M) PART B Jan 22, 2004 PART B [id number] PAYAM ZHENG PATIENT Selected Encounter This section includes the information on record at [place] for the Encounter. Date/Time Encounter Type Encounter Description Reason Provider Source Sep 27, 2024 11:00 AM HEARING AID XM&SLCTN [facility] ICD-10-CM Z46.1 Encounter for fitting and adjustment of hearing aid SHANELL CASTELAN [place] Encounter Template Text not used by [place] Assessments - Encounter Diagnoses This section includes the primary and secondary diagnoses documented for the Encounter. Date/Time Primary/Secondary Diagnosis Diagnosis Name Provider Source Sep 27, 2024 12:11 PM PRIMARY Encounter for fitting and adjustment of hearing aid SHANELL CASTELAN [facility] Sep 27, 2024 12:11 PM SECONDARY Sensorineural hearing loss, bilateral SHANELL CASTELAN [facility] Plan of Treatment: Future Appointments (+ 6 months) and Future Tests (+/- 45 days) The Plan of Treatment section includes future care activities for the patient from all [place] treatmentfacilities. This section includes future appointments and future orders which are active, pending or scheduled. Future Appointments This section includes appointments that were scheduled to occur 6 months from the date of the Encounter, up to a maximum of 20 appointments. The data comes from all [place] treatment [facility]. Appointment Date/Time Appointment Type Appointme nt Facility Name Oct 02, 2024 11:15 AM AMBULATORY - MEDICINE [facility] Oct 02, 2024 01:00 PM AMBULATORY - SURGERY . [facility] Oct 21, 2024 01:30 PM AMBULATORY - SURGERY . [facility] Oct 21, 2024 02:30 PM AMBULATORY - SURGERY . [facility] Oct 29, 2024 01:00 PM AMBULATORY - REHAB MEDICIN E [facility] November 25, 2024 10:45 AM AMBULATORY - MEDICINE [facility] November 27, 2024 10:30 AM AMBULATORY - SURGERY [facility] November 27, 2024 11:15 AM AMBULATORY - MEDICINE [facility] Active, Pending, and Scheduled Orders This section includes a listing of several types of active, pending, and scheduled orders, including clinic medications orders, diagnostic test orders, procedure orders and consult orders; where the start date of the order is 45 days before the date of the Encounter or 45 days after the date of theEncounter. The data comes from all [facility]. Test Date/Time Test Type Test Details Facility Name Oct 04, 2024 04:10 PM Consult Order OT OUTPATI ENT CONSULT STL Cons Learning Coordinator's Choice [facility] Lab Results: +/- 30 days of the encounter This section includes the Chemistry and Hematology Lab Results on record with [place] for the patient. Radiology Reports and Pathology Reports are provided separately, in subsequent sections. Lab Results This section contains the Chemistry/Hematology Results that were resulted 30 days before or 30 daysafter the date of the Encounter. Date/Time Source Result Type Result - Unit Interpretation Reference Range Comment Oct 02, 2024 12:09 PM [facility] HGA1C Specimen Type: BLOOD No comment entered. Ordering Provider: Mina CORDOVA Report Released Date/Time: Oct 02, 2024 11:59 AM Reporting Lab: [facility] [address] [id number] Performing Lab: [facility] [address] [address] HGA1C 7.0 H 4.0-6.0 Oct 02, 2024 12:09 PM [facility] FERRITIN Specimen Type: SERUM No comment entered. Ordering Provider: Mina CORDOVA Report Released Date/Time: Oct 02, 2024 11:59 AM Reporting Lab: [facility] [address] [address] [address] Performing Lab: [facility] [address] [facility] [address] FERRITIN 37.12 ng/mL 22-275 Oct 02, 2024 12:09 PM [facility] IRON/TIBC PROFILE Specimen Type: SERUM Comment: No hemolysis noted. Ordering Provider: Mina CORDOVA Report Released Date/Time: Oct 02, 2024 11:59 AM Reporting Lab: [facility] [address] [address] [address] Performing Lab: [facility] [address] [facility] [facility] [address] [address] TIBC 306 ug/dL 250-450 TRANSFERRIN 245 mg/dL 163-344 IRON SATURATION 19 L 20-50 IRON 59 ug/dL L 65-175 Oct 02, 2024 12:09 PM [facility] MICRAL/CREAT PROFILE (STL) Specimen Type: URINE No comment entered. Ordering Provider: Mina CORDOVA Report Released Date/Time: Oct 02, 2024 11:59 AM Reporting Lab: [facility] [address] [facility] [address] [phone] Performing Lab: [facility] [address] [facility] [address] [phone] URINE ALBUMIN (PB-STL) 19.0 mg/L uACR (STL) 53 mg/g H 0-29 CREATININE URINE/OTHERS 35.6 mg/dL L 63-166 Oct 02, 2024 12:09 PM [facility] COMPREHENSIVE METABOLIC PANEL Specimen Type: PLASMA Comment: No hemolysis noted. Ordering Provider: Mina CORDOVA Report Released Date/Time: Oct 02, 2024 11:59 AM Reporting Lab: [facility] [address] [place] [id number] Performing Lab: [address] [address] CREATININE 1.03 mg/dL 0.7-1.3 UREA NITROGEN 16.2 [...] 71.2 >60 Oct 02, 2024 12:09 PM [facility] CBC Specimen Type: BLOOD No comment entered. Ordering Provider: Mina CORDOVA Report Released Date/Time: Oct 02, 2024 11:59 AM Reporting Lab: [address] [address] Performing Lab: [address] [address] WBC 10.7 10*3/uL 3.6-11.2 RBC 3.97 10*6/uL [...] and tobacco- related health factors from the [place] facility where the Encounter took place. Current Smoking Status This section includes the most current smoking, or tobacco-related health factor, from the [place] facility where the Encounter took place. Date/Time Current Smoking Status Comment Facil ity December 07, 2015 03:10 PM QUIT TOBACCO >7 YEARS AGO [facility] Tobacco Use History This section includes a history of the smoking, or tobacco-related health factors, that were collected on or before the date of the Encounter. The data comes from the [place] facility where the Encounter took place. Date/Time Smoking Status/Tobacco Use Comment F acility May 20, 2014 09:22 AM QUIT TOBACCO >7 YEARS AGO [facility] Feb 19, 2013 09:01 AM QUIT TOBACCO >7 YEARS AGO [facility] December 20, 2006 08:06 AM QUIT TOBACCO >7 YEARS AGO [facility] Jun 12, 2006 09:00 AM CURRENT NON-TOBACC O USER-HX OF USE [facility] Jun 12, 2006 09:00 AM TOBACCO TERMINATION STAGE [facility] December 07, 2005 11:12 AM CURRENT NON-TOBACC O USER-HX OF USE [facility] December 07, 2005 11:12 AM TOBACCO TERMINATION STAGE [facility] Mar 21, 2005 01:46 PM CURRENT NON-TOBACC O USER-HX OF USE [facility] Mar 21, 2005 01:46 PM TOBACCO TERMINATION STAGE [facility] Mar 03, 2004 09:58 AM CURRENT NON-TOBACC O USER-HX OF USE [facility] Mar 03, 2004 09:58 AM TOBACCO TERMINATION STAGE [facility] Apr 21, 2003 09:25 AM CURRENT NON-TOBACC O USER-HX OF USE QUIT 1971 [facility] Apr 21, 2003 09:25 AM CURRENT NON-TOBACC O USER-RECENTLY QUIT quit 1971 [facility] Apr 21, 2003 09:25 AM TOBACCO USE quit [address] [place] [address] Nov 07, 2002 09:14 AM CURRENT NON-TOBACC O USER-RECENTLY QUIT quit 1971 [facility] Nov 07, 2002 09:14 AM TOBACCO USE quit [address] [place] [address] Nov 08, 2001 08:09 AM CURRENT NON-TOBACC O USER-HX OF USE quit 20 yrs. ago [facility] Advance Directives: All historical and current Section Date Range: From patient's date of to the date document was created. This section includes ALL of a patient's completed or amended [place] Advance and Rescinded Directives. The entries below indicate that a directive exists for the patient, but an actual copy is not included with this document. The data comes from all [facility]. Date Advance Directives Provider Source Mar 26, 2021 ADVANCE DIRECTIVE DISCUSSION Jaqueline LEON [facility] Jun 12, 2014 ADVANCE DIRECTIVE DISCUSSION GÓMEZ ESPINAL [facility] Radiology Reports: +/- 30 days of [...] the Encounter. The data comes from all [place] treatment facilities. Date/Time Radiology Report Provider Source Oct 02, 2024 01:47 PM SHOULDER,LEFT,2 OR MORE VIEWS: VAUGHN ZHENG [id number] -[id number] M Exm Date: OCT 02, 2024@13:47 Req Phys: JAY CORDOVA Loc: -[place] PACT STRIPES RES 3 (Req Img Loc: -MAIN RADIOLOGY SUITE Service: [facility], [address] [place] [address] (Case [id number] COMPLETE) SHOULDER,LEFT,2 OR MORE VIEWS (RAD Detailed) CPT:29503 Proc Modifiers : LEFT Reason for Study: 1month of pain L shoulder Clinical History: Report Status: Verified Date Reported: OCT 04, 2024 Date Verified: OCT 04, 2024 Paper Tester E-Sig:/ES/Sav Easton MD Report: FINDINGS: No significant bone or joint abnormality is demonstrated. No significant acute finding is seen. Impression: Negative. Primary Interpreting Staff: Sav Easton MD, Radiologist (Paper Tester) /SAV [facility] Encounter Notes: All associated encounter notes This section contains the clinical notes associated to the Encounter. Date/Time Encounter Note(s) Provider Source Sep 27, 2024 07:43 AM AUDIOLOGY PCTS NOTE: LOCAL TITLE: HEARING AIDS STL STANDARD TITLE: AUDIOLOGY PCTS NOTE DATE OF NOTE: SEP 27, 2024@07:43 ENTRY DATE: SEP 27, 2024@07:43:55 AUTHOR: SHANELL CASTELAN COSIGNER: URGENCY: STATUS: COMPLETED SUBJECT: Audio HEARING AIDS STL Has ADDENDA Hearing aid check performed today: CASE HISTORY: Crook wore the following hearing devices: 07/15/24 DIONNE SILVA ITC R R [id number] (w/ canal locks) 07/15/24 DIONNE SILVA ITC R L [id number] (w/ canal locks) States he is experiencing the following issues with his hearing aids: 1. Left pain in the bowl of his pinna 2. 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 Unable to adjust hearing aid volume up/down on both sides 4. Lack of clarity 5. One-way audio 6. Fluctuating volume when watching TV 7. Pumping sound affect with steady state noise. OTOSCOPY: Canals clear with intact TMs. In the left ear, redness/groove where the canal lock of the left hearing aid is placing too much pressure. CLEANING/REPAIRS: General cleaning. Listening check OK. Used [employer] to buff/smooth left canal lock to have less pressure. DATALOGGING: Datalogging since 07/15/2024 reveals 13 hrs/day avg. PROGRAMMING: Reduced steady state noise reduction to deal with pumping sound effect and reduced automaticity aggressiveness. DISPOSITION: Discussed limits with occlusion, BT connection, and independent volume (without volume wheel.) Diallo opted to RTC Dionne hearing aids. Since he does not have his snubber and other supplies, he left office wearing Dionne hearing aids and will return them with snubber on 10/02/2024 when he returns to for another appointment. Hearing Aid Exam performed today: [x] provider initiated visit Otoscopy reveals clear canals. Appropriate evaluation of patient leads to hearing aid order. Ear mold impressions taken without incident. Hearing aid will be ordered and appointment requested for fitting. [x] Binaural [x] Experienced user Discussed aids with pt to include the following: STYLE: Crook selected YA to address bothersome occlusion. COUPLING: skeleton lock cShells, pink FP, clear shell and removal filaments. BATTERY TYPE: Crook selected rechargeable for convenience. COLOR: selected [employer] for hair color. CONNECTIVITY: states he is interested in BT streaming. He has a compatible Sqoot A53 5G. Crook requested blaire control and already has [employer] blaire on his phone. MATRIX: Crook measured between 2 and 3. reports his last wires (2M) felt too short. Will order 3M. After discussion, Crook and clinician chose: binaural PHONAK AUDEO I90-R YA in champagne with 3M skeleton lock cShells with pink FP, clear shell, and removal filament. Programmed as auto, VC, BT for Android and blaire. *RTC used. RECOMMENDATIONS: 1. to RTC Dionne aids 10/02/2024. Tickler placed. 2. HAF OB 10/21/2024 at 13:30. Ordered aids today to ensure devices arrive. /yesenia/ Lars Butler, [facility] Staff Denture Waxer, Surgery Service Signed: 09/27/2024 12:11 10/04/2024 ADDENDUM STATUS: COMPLETED returned Dionne aids to RTC. Mailed back into geospatial applications developer. Completed by Angel Wilkins, doctoral audiology resident. The information above has been reviewed by this provider. I am in agreement with the treatment plan as outlined. /yesenia/ Lars LEIVA Staff Denture Waxer, Surgery Service Signed: 10/04/2024 11:04 10/07/2024 ADDENDUM STATUS: COMPLETED Pre-programmed hearing aid for upcoming fitting /yesenia/ DAVE SANDOVAL Supervisor Liquid Yeast, [facility] Signed: 10/07/2024 12:58 /yesenia/ Lars Butler, [facility] Staff Denture Waxer, Surgery Service Cosigned: 10/07/2024 14:47 SHANELL CASTELAN [facility]
[2024-10-22] MEDS: MAGNESIUM SULF 1 GM/D5W 100 ML 1 GM/100 ML BAG IVPB (12:30)
--- OUTSIDE RECORDS SUMMARY | 2024-10-22 12:45 | XMS_ITS | Continuity of Care Document ---
Author Name [facility] Organization [facility] Care Team Providers Care It Professional Name Role Phone [facility] Unavailable Unavailable Problems Combined list of problems from Department of Defense and Veterans Affairs facilities. It does not include entries that were removed or entered in error. Problem Status Onset Date Problem Type Date of Resolution Comments Source Allergic Rhinitis Active Condition [facility] B12 deficiency monitoring status (SNOMED CT 298439108) Active Condition [facility] Benign essential hypertension (SNOMED CT 1470856) Active Condition Feb 19, 2013 Entered By: JEWEL HERNANDEZ Comment: amlodipine 2.5 mg [facility] Benign prostatic hyperplasia Active Condition [facility] Diabetes mellitus Active Condition [facility] Diverticulosis Colon Active Condition Jun 01, 2010 Entered By: JEWEL HERNANDEZ Comment: colectomy-colono scopy done February 2010--due 2020 [facility] Dyspepsia Active Condition [facility] Hemorrhoids Active Condition [facility] Hypertension * (ICD-9-CM 401.9) Active Condition [facility] Hypothyroidism Active Condition Jan 232012 Entered By: JEWEL HERNANDEZ Comment: 50 mcg levothyroxine [facility] Impaired glucose tolerance Active Condition [facility] Incisional hernia without mention of obstruction or gangrene (ICD-9-CM 553.21) Active Condition Aug 26 14 Entered By: JEWEL HERNANDEZ Comment: ventral hernia repair jun 10 2013. [facility] Pain in joint involving lower leg (ICD-9-CM 719.46) Active Condition [facility] Skin Cancer Active Condition [facility] Diagnosis: ICD-10-CM C44.90 Unspecified malignant neoplasm of skin, unspecified Active Diagnosis [facility] Diagnosis: ICD-10-CM Z46.1 Encounter for fitting and adjustment of hearing aid Active Diagnosis [facility] Diagnosis: ICD-10-CM C43.62 Malignant melanoma of left upper limb, including shoulder Active Diagnosis [facility] Diagnosis: ICD-10-CM I10 Essential (primary) hypertension Active Diagnosis [facility] Diagnosis: ICD-10-CM E11.65 Type 2 diabetes mellitus with hyperglycemia Active Diagnosis [facility] Diagnosis: ICD-10-CM L57.0 Actinic keratosis Active Diagnosis [facility] Diagnosis: ICD-10-CM C43.9 Malignant melanoma of skin, unspecified Active Diagnosis [facility] Diagnosis: ICD-10-CM Z48.817 Encntr for surgical aftcr fol surgery on the skin, subcu Active Diagnosis [facility] Diagnosis: ICD-10-CM Z01.818 Encounter for other preprocedural examination Active Diagnosis [facility] Diagnosis: ICD-10-CM H90.3 Sensorineural hearing loss, bilateral Active Diagnosis [facility] Diagnosis: ICD-10-CM H25.813 Combined forms of age-related cataract, bilateral Active Diagnosis [facility] Diagnosis: ICD-10-CM H25.13 Age-related nuclear cataract, bilateral Active Diagnosis [facility] Diagnosis: ICD-10-CM Z46.89 Encounter for fitting and adjustment of oth devices Active Diagnosis [facility] Diagnosis: ICD-10-CM R54 Age-related physical debility Active Diagnosis [facility] Diagnosis: ICD-10-CM E11.3293 Type 2 diab with mild nonp rtnop without macular edema, bi Active Diagnosis [facility] Diagnosis: ICD-10-CM M79.643 Pain in unspecified hand Active Diagnosis [facility] Diagnosis: ICD-10-CM Z00.01 Encounter for general adult medical exam w abnormal findings Active Diagnosis [facility] Medications Combined list of outpatient medications from [...] OPHEN (APAP) FROM ALL MEDS. ORAL 08/30/2024 [id number] 5 Mina HOANG GERDA 2024 100 [facility] AMLODIPINE BESYLATE 5MG TAB TAKE ONE TABLET BY MOUTH ONCE A DAY ORAL ACTIVE ROSHAN HERNANDEZ E B 2015 [facility] CEPHALEXIN 500MG CAP TAKE ONE CAPSULE BY MOUTH THREE TIMES A DAY TAKE WITH FOOD. TAKE UNTIL GONE UNLESS OTHERWIS E DIRECTED . ORAL 08/30/2024 [id number] 5 Mina HOANG GERDA 2024 21 [facility] CHLORHEXIDI NE GLUCONATE 4% LIQUID,TOP APPLY MODERATE AMOUNT TO AFFECTED AREA(S) DIRECTED FOR SKIN DISINFEC TION (TOPICAL USE ONLY) AVOID CONTACT WITH EYES. TOPICA L 07/24/2024 [id number] 4 AFT,REBEC CA 2023 120 [facility] CHOLECALCIF PAM 50MCG (2,000UNIT) TAB TAKE ONE TABLET BY MOUTH ONCE A DAY ORAL ACTIVE ROSHAN HERNANDEZ E B 2012 [facility] CYANOCOBALA MIN 1000MCG TAB TAKE ONE TABLET BY MOUTH ONCE A DAY ORAL ACTIVE ROSHAN HERNANDEZ E B 2017 [facility] EMPAGLIFLOZ IN 5MG/METFORM IN 1000MG TAB,ORAL TAKE ONE TABLET BY MOUTH TWICE A DAY ORAL ACTIVE ROBERTO PANCHAL 2023 [facility] FLUOROURACI L 5% CREAM,TOP APPLY THIN FILM [...] WEEKS TO BOTH ARMS TOPICA L 06/27/2024 [id number] SERJIO SCRUGGS G 2023 40 [facility] LEVOTHYROXI NE NA 75MCG TAB (SYNTHROID) TAKE ONE TABLET BY MOUTH EVERY MORNING BEFORE A MEAL ORAL ACTIVE ORIANA ARRINGTON 2020 [facility] LISINOPRIL 40MG TAB TAKE ONE TABLET BY MOUTH ONCE A DAY ORAL ACTIVE DAVID,SRE E B 2015 [facility] Jie LORATADINE 10MG TAB TAKE ONE TABLET BY MOUTH ONCE A DAY ORAL ACTIVE DAVID,SRE E B 2015 [facility] METRONIDAZO LE 0.75% GEL,TOP APPLY SPARINGL Y TO AFFECTED AREA(S) TWICE A DAY TOPICA L ACTIVE MATA TORRES 2006 [facility] TAYLA Ceron MULTIVITAMI NS CAP/TAB TAKE ONE TABLET BY MOUTH ONCE A DAY ORAL ACTIVE MATA TORRES 2004 [facility] eCron OMEPRAZOLE 20MG CAP,EC TAKE 2 CAPSULES BY MOUTH EVERY MORNING ORAL ACTIVE DAVIDSRE E B 2012 [facility] OXYCODONE HCL 5MG TAB TAKE ONE TABLET BY MOUTH EVERY 6 HOURS NEEDED FOR POST-OPE RATIVE PAIN MAY CAUSE CONSTIPA TION ORAL 08/30/2024 [id number] 5 Mina HOANG 2024 12 [facility] Jie PHENYLEPHRI NE HCL 0.25% SUPP,RTL UNWRAP AND INSERT 1 SUPPOSIT ORY RECTALLY TWICE DAILY NEEDED RECTAL ACTIVE DAVIDSRE E B 2011 [facility] PSYLLIUM POWDER,ORAL MIX AND DRINK BY MOUTH ONCE A DAY ORAL ACTIVE JOSE ENRIQUE MARKS 2004 [facility] Immunizations Combined list of available immunizations from the Department of Defense and Veterans Affairs facilities. Immunization Series Date Given Administered By Site Reaction Lot Number CVX Code Drug Community Development Officer Status Comments Source INFLUENZA, HIGH-DOSE, TRIVALENT, PF 2023 BUCKKATTY Hansen LEFT DELTO ID [id number] 135 complet ed [facility] RESPIRATORY SYNCYTIAL VIRUS (RSV), UNSPECIFIED 2023 304 complet ed [facility] INFLUEN[facility], HIGH-DOSE, QUADRIVALENT 2022 TELFAIRIKNDELFIN Porsha LEFT DELTO ID [id number] 197 complet ed Tolerated well. [facility] INFLUENZA, UNSPECIFIED FORMULATION 2021 88 complet ed [facility] COVID-19 (MODERNA), MRNA, LNP-S, PF, 100 MCG OR 50 MCG DOSE 3 2020 207 complet ed [facility] INFLUENZA, UNSPECIFIED FORMULATION 2020 88 complet ed [facility] COVID-19 (MODERNA), MRNA, LNP-S, PF, 100 MCG/0.5 ML DOSE 2 2020 207 complet ed MOD; [id number]; [facility] COVID-19 (MODERNA), MRNA, LNP-S, PF, 100 MCG/0.5 ML DOSE 1 2020 207 complet ed MOD; [id number]; [facility] INFLUENZA, UNSPECIFIED FORMULATION 2019 88 complet ed [facility]ARM[facility] IES ZOSTER RECOMBINANT 1 2018 187 complet ed [facility] INFLUENZA, INJECTABLE, QUADRIVALENT, PRESERVATIVE FREE 2017 150 complet ed [facility] INFLUENZA, INJECTABLE, QUADRIVALENT, PRESERVATIVE FREE 2016 150 complet ed [facility] INFLUENZA, SEASONAL, INJECTABLE 2015 141 complet ed [facility] N INFLUENZA, SEASONAL, INJECTABLE, PRESERVATIVE FREE 2015 140 complet ed [facility] INFLUENZA, UNSPECIFIED FORMULATION 2014 88 complet ed [facility] PNEUMOCOCCAL CONJUGATE PCV 13 2014 133 complet ed [facility] INFLUENZA, UNSPECIFIED FORMULATION 2013 88 complet ed [facility] INFLUENZA, UNSPECIFIED FORMULATION 2012 88 complet ed [facility] INFLUENZA, UNSPECIFIED FORMULATION 2011 88 complet ed [facility] TD(ADULT) UNSPECIFIED FORMULATION 2011 139 complet ed Left Deltoid [facility] INFLUENZA, UNSPECIFIED FORMULATION 2010 88 complet ed [facility] INFLUENZA, UNSPECIFIED FORMULATION 2009 88 complet ed [facility] INFLUENZA, UNSPECIFIED FORMULATION 2008 88 complet ed [facility] ZOSTER LIVE 2008 121 complet ed [facility] INFLUENZA, UNSPECIFIED FORMULATION 2007 88 complet ed per letter [facility] INFLUENZA, UNSPECIFIED FORMULATION 2006 88 complet ed [facility] INFLUENZA, UNSPECIFIED FORMULATION 2005 JOEY GIL 88 complet ed [facility] INFLUENZA, UNSPECIFIED FORMULATION 2004 88 complet ed [facility] PNEUMOCOCCAL, UNSPECIFIED FORMULATION 2003 109 complet ed [facility] INFLUENZA, UNSPECIFIED FORMULATION 2002 88 complet ed [facility] TD(ADULT) UNSPECIFIED FORMULATION 2001 139 complet ed [facility] Results Combined list of recent chemistry, hematology and other laboratory results from Department of Defense and Veterans Affairs, ranging from 15 months to all on record, depending upon the facility. Order Name Results Value Reference Range Date Interpretation Specimen Comments Source CBC LEUKOCYTES [#/VOLUME] IN BLOOD BY AUTOMATED COUNT 10.7 10*3/u L 3.6 - 11.2 10/02 Specimen Type: BLOOD No comment entered. Ordering Provider: JAY CORDOVA Report Released Date/Time: Oct 02, 2024 11:59 AM Reporting Lab: [place] [address] [address] [facility] [address] Performing Lab: [place] [address] [facility] [phone] [facility] CBC ERYTHROCYTE S [#/VOLUME] IN BLOOD BY AUTOMATED COUNT 3.97 10*6/u L 4.10 - 5.70 10/02 L Specimen Type: BLOOD No comment entered. Ordering Provider: JAY CORDOVA Report Released Date/Time: Oct 02, 2024 11:59 AM Reporting Lab: [place] [address] [facility] [phone] Performing Lab: [place] [address] [facility] [phone] [facility] CBC HEMOGLOBIN [MASS/VOLUM E] IN BLOOD 12.0 g/dL 13.1 - 16.8 10/02 L Specimen Type: BLOOD No comment entered. Ordering Provider: JAY CORDOVA Report Released Date/Time: Oct 02, 2024 11:59 AM Reporting Lab: [place] [address] [facility] [phone] Performing Lab: [place] [address] [facility] [phone] [facility] CBC HEMATOCRIT [VOLUME FRACTION] OF BLOOD 35.9 38.2 - 48.4 10/02 L Specimen Type: BLOOD No comment entered. Ordering Provider: JAY CORDOVA Report Released Date/Time: Oct 02, 2024 11:59 AM Reporting Lab: [place] [address] [facility] [phone] Performing Lab: [facility] [address] [facility] [phone] [facility] CBC MCV [ENTITIC VOLUME] BY AUTOMATED COUNT 90.4 fL 80.0 - 100.0 10/02 Specimen Type: BLOOD No comment entered. Ordering Provider: JAY CORDOVA Report Released Date/Time: Oct 02, 2024 11:59 AM Reporting Lab: [facility] [address] [place] [phone] Performing Lab: [facility] [address] [place] [phone] [facility] CBC MCH [ENTITIC MASS] BY AUTOMATED COUNT 30.2 pg 27.0 - 34.0 10/02 Specimen Type: BLOOD No comment entered. Ordering Provider: JAY CORDOVA Report Released Date/Time: Oct 02, 2024 11:59 AM Reporting Lab: [address] [address] Performing Lab: [address] [phone] [facility] CBC MCHC [MASS/VOLUM E] BY AUTOMATED COUNT 33.4 g/dL 33.0 - 36.0 10/02 Specimen Type: BLOOD No comment entered. Ordering Provider: JAY CORDOVA Report Released Date/Time: Oct 02, 2024 11:59 AM Reporting Lab: [address] [phone] Performing Lab: [facility] [address] [place] [phone] [facility] CBC PLATELETS [#/VOLUME] IN BLOOD BY AUTOMATED COUNT 282 10*3/u L 150 - 400 10/02 Specimen Type: BLOOD No comment entered. Ordering Provider: JAY CORDOVA Report Released Date/Time: Oct 02, 2024 11:59 AM Reporting Lab: [facility] [address] [place] [phone] Performing Lab: [address] [phone] [facility] CBC PLATELET MEAN VOLUME [ENTITIC VOLUME] IN BLOOD BY AUTOMATED COUNT 8.7 fL 7.5 - 11.2 10/02 Specimen Type: BLOOD No comment entered. Ordering Provider: JAY CORDOVA Report Released Date/Time: Oct 02, 2024 11:59 AM Reporting Lab: [facility] [address] [facility] [phone] Performing Lab: [facility] [address] [facility] [phone] [facility] CBC ERYTHROCYTE DISTRIBUTIO N WIDTH [RATIO] BY AUTOMATED COUNT 12.9 11.8 - 15.1 10/02 Specimen Type: BLOOD No comment entered. Ordering Provider: JAY CORDOVA Report Released Date/Time: Oct 02, 2024 11:59 AM Reporting Lab: [facility] [address] [facility] [phone] Performing Lab: [facility] [address] [facility] [phone] [facility] CBC LYMPHOCYTES /100 LEUKOCYTES IN BLOOD BY AUTOMATED COUNT 16 10/02 Specimen Type: BLOOD No comment entered. Ordering Provider: JAY CORDOVA Report Released Date/Time: Oct 02, 2024 11:59 AM Reporting Lab: [facility] [address] [facility] [phone] Performing Lab: [facility] [address] [facility] [phone] [facility] CBC MONOCYTES/1 00 LEUKOCYTES IN BLOOD BY AUTOMATED COUNT 8 10/02 Specimen Type: BLOOD No comment entered. Ordering Provider: JAY CORDOVA Report Released Date/Time: Oct 02, 2024 11:59 AM Reporting Lab: [facility] [address] [facility] [address] Performing Lab: [facility] [address] [place] [phone] [facility] CBC NEUTROPHILS /100 LEUKOCYTES IN BLOOD BY AUTOMATED COUNT 74 10/02 Specimen Type: BLOOD No comment entered. Ordering Provider: JAY CORDOVA Report Released Date/Time: Oct 02, 2024 11:59 AM Reporting Lab: [facility] [address] [facility] [address] Performing Lab: [facility] [address] [facility] [phone] [facility] CBC EOSINOPHILS /100 LEUKOCYTES IN BLOOD BY AUTOMATED COUNT 1 10/02 Specimen Type: BLOOD No comment entered. Ordering Provider: JAY CORDOVA Report Released Date/Time: Oct 02, 2024 11:59 AM Reporting Lab: [facility] [address] [facility] [place] [phone] Performing Lab: [facility] [address] [place] [phone] [facility] CBC BASOPHILS/1 00 LEUKOCYTES IN BLOOD BY AUTOMATED COUNT 0 10/02 Specimen Type: BLOOD No comment entered. Ordering Provider: JAY CORDOVA Report Released Date/Time: Oct 02, 2024 11:59 AM Reporting Lab: [facility] [address] [facility] [place] [phone] Performing Lab: [facility] [address] [place] [phone] [facility] CBC LYMPHOCYTES [#/VOLUME] IN BLOOD BY AUTOMATED COUNT 1.67 10*3/u L 0.77 - 4.50 10/02 Specimen Type: BLOOD No comment entered. Ordering Provider: JAY CORDOVA Report Released Date/Time: Oct 02, 2024 11:59 AM Reporting Lab: [facility] [address] [facility] [place] [phone] Performing Lab: [facility] [address] [place] [phone] [facility] CBC MONOCYTES [#/VOLUME] IN BLOOD BY AUTOMATED COUNT 0.84 10*3/u L 0.19 - 0.80 10/02 H Specimen Type: BLOOD No comment entered. Ordering Provider: JAY CORDOVA Report Released Date/Time: Oct 02, 2024 11:59 AM Reporting Lab: [facility] [address] [facility] [phone] Performing Lab: [facility] [address] [facility] [phone] [facility] CBC NEUTROPHILS [#/VOLUME] IN BLOOD BY AUTOMATED COUNT 7.92 10*3/u L 2.10 - 8.00 10/02 Specimen Type: BLOOD No comment entered. Ordering Provider: JAY CORDOVA Report Released Date/Time: Oct 02, 2024 11:59 AM Reporting Lab: [facility] [address] [facility] [phone] Performing Lab: [address] [phone] [place] [address] CBC EOSINOPHILS [#/VOLUME] IN BLOOD BY AUTOMATED COUNT 0.13 10*3/u L 0.00 - 0.60 10/02 Specimen Type: BLOOD No comment entered. Ordering Provider: JAY CORDOVA Report Released Date/Time: Oct 02, 2024 11:59 AM Reporting Lab: [facility] [phone] Performing Lab: [facility] [phone] [facility] CBC BASOPHILS [#/VOLUME] IN BLOOD BY AUTOMATED COUNT 0.03 10*3/u L 0.00 - 0.20 10/02 Specimen Type: BLOOD No comment entered. Ordering Provider: JAY CORDOVA Report Released Date/Time: Oct 02, 2024 11:59 AM Reporting Lab: [facility] [address] [facility] [place] [phone] Performing Lab: [facility] [address] [place] [phone] [facility] COMPREHEN SIVE METABOLIC PANEL CREATININE [MASS/VOLUM E] IN SERUM OR PLASMA 1.03 mg/dL 0.7 - 1.3 10/02 Specimen Type: PLASMA Comment: No hemolysis noted. Ordering Provider: JAY CORDOVA Report Released Date/Time: Oct 02, 2024 11:59 AM Reporting Lab: [facility] [address] [facility] [place] [phone] Performing Lab: [facility] [address] [facility] [phone] [facility] COMPREHEN SIVE METABOLIC PANEL UREA NITROGEN [MASS/VOLUM E] IN SERUM OR PLASMA 16.2 mg/dL 9.0 - 25.0 10/02 Specimen Type: PLASMA Comment: No hemolysis noted. Ordering Provider: JAY CORDOVA Report Released Date/Time: Oct 02, 2024 11:59 AM Reporting Lab: [facility] [address] [facility] [place] [address] Performing Lab: [facility] [address] [place] [phone] [facility] COMPREHEN SIVE METABOLIC PANEL GLUCOSE [MASS/VOLUM E] IN SERUM OR PLASMA 169 mg/dL 72 - 99 10/02 H Specimen Type: PLASMA Comment: No hemolysis noted. Ordering Provider: JAY CORDOVA Report Released Date/Time: Oct 02, 2024 11:59 AM Reporting Lab: [facility] [address] [facility] [place] [phone] Performing Lab: [facility] [address] [facility] [address] [place] [phone] [facility] COMPREHEN SIVE METABOLIC PANEL SODIUM [MOLES/VOLU ME] IN SERUM OR PLASMA 138 meq/L 136 - 145 10/02 Specimen Type: PLASMA Comment: No hemolysis noted. Ordering Provider: JAY CORDOVA Report Released Date/Time: Oct 02, 2024 11:59 AM Reporting Lab: [facility] [address] [facility] [place] [phone] Performing Lab: [facility] [address] [place] [phone] [facility] COMPREHEN SIVE METABOLIC PANEL POTASSIUM [MOLES/VOLU ME] IN SERUM OR PLASMA 3.6 meq/L 3.5 - 5 10/02 Specimen Type: PLASMA Comment: No hemolysis noted. Ordering Provider: JAY CORDOVA Report Released Date/Time: Oct 02, 2024 11:59 AM Reporting Lab: [facility] [address] [facility] [phone] Performing Lab: [facility] [address] [facility] [address] [facility] COMPREHEN SIVE METABOLIC PANEL CHLORIDE [MOLES/VOLU ME] IN SERUM OR PLASMA 105 meq/L 98 - 107 10/02 Specimen Type: PLASMA Comment: No hemolysis noted. Ordering Provider: JAY CORDOVA Report Released Date/Time: Oct 02, 2024 11:59 AM Reporting Lab: [facility] [address] [facility] [place] [phone] Performing Lab: [facility] [address] [facility] [place] [place] [address] [facility] COMPREHEN SIVE METABOLIC PANEL CARBON DIOXIDE, TOTAL [MOLES/VOLU ME] IN SERUM OR PLASMA 20 meq/L 22 - 31 10/02 L Specimen Type: PLASMA Comment: No hemolysis noted. Ordering Provider: JAY CORDOVA Report Released Date/Time: Oct 02, 2024 11:59 AM Reporting Lab: [facility] [address] [facility] [place] [phone] Performing Lab: [facility] [address] [facility] [place] [address] [facility] COMPREHEN SIVE METABOLIC PANEL CALCIUM [MASS/VOLUM E] IN SERUM OR PLASMA 8.7 mg/dL 8.4 - 10.4 10/02 Specimen Type: PLASMA Comment: No hemolysis noted. Ordering Provider: JAY CORDOVA Report Released Date/Time: Oct 02, 2024 11:59 AM Reporting Lab: [facility] [address] [facility] [place] [address] Performing Lab: [facility] [address] [facility] [address] [facility] COMPREHEN SIVE METABOLIC PANEL PROTEIN [MASS/VOLUM E] IN SERUM OR PLASMA 7.3 g/dL 6 - 8.6 10/02 Specimen Type: PLASMA Comment: No hemolysis noted. Ordering Provider: JAY CORDOVA Report Released Date/Time: Oct 02, 2024 11:59 AM Reporting Lab: [facility] [address] [facility] [place] [phone] Performing Lab: [place] [address] [facility] [phone] [place] [address] COMPREHEN SIVE METABOLIC PANEL ALBUMIN [MASS/VOLUM E] IN SERUM OR PLASMA 4.0 g/dL 3.4 - 5 10/02 Specimen Type: PLASMA Comment: No hemolysis noted. Ordering Provider: JAY CORDOVA Report Released Date/Time: Oct 02, 2024 11:59 AM Reporting Lab: [place] [address] [facility] [place] [id number] Performing Lab: [address] [address] [facility] COMPREHEN SIVE METABOLIC PANEL BILIRUBIN.T OTAL [MASS/VOLUM E] IN SERUM OR PLASMA 0.8 mg/dL 0.2 - 1.2 10/02 Specimen Type: PLASMA Comment: No hemolysis noted. Ordering Provider: JAY CORDOVA Report Released Date/Time: Oct 02, 2024 11:59 AM Reporting Lab: [address] [address] Performing Lab: [place] [address] [facility] [place] [phone] [facility] COMPREHEN SIVE METABOLIC PANEL ALKALINE PHOSPHATASE [ENZYMATIC ACTIVITY/VO LUME] IN SERUM OR PLASMA 101 U/L 40 - 150 10/02 Specimen Type: PLASMA Comment: No hemolysis noted. Ordering Provider: JAY CORDOVA Report Released Date/Time: Oct 02, 2024 11:59 AM Reporting Lab: [place] [address] [facility] [place] [phone] Performing Lab: [address] [address] [facility] COMPREHEN SIVE METABOLIC PANEL ASPARTATE AMINOTRANSF ERASE [ENZYMATIC ACTIVITY/VO LUME] IN SERUM OR PLASMA 25 U/L 5 - 34 10/02 Specimen Type: PLASMA Comment: No hemolysis noted. Ordering Provider: JAY CORDOVA Report Released Date/Time: Oct 02, 2024 11:59 AM Reporting Lab: [facility] [address] [facility] [address] Performing Lab: [facility] [address] [address] [facility] COMPREHEN SIVE METABOLIC PANEL ALANINE AMINOTRANSF ERASE [ENZYMATIC ACTIVITY/VO LUME] IN SERUM OR PLASMA 15 U/L 8 - 40 10/02 Specimen Type: PLASMA Comment: No hemolysis noted. Ordering Provider: JAY CORDOVA Report Released Date/Time: Oct 02, 2024 11:59 AM Reporting Lab: [facility] [address] [facility] [address] Performing Lab: [facility] [address] [phone] [place] [address] COMPREHEN SIVE METABOLIC PANEL GLOMERULAR FILTRATION RATE/1.73 SQ M.PREDICTED [VOLUME RATE/AREA] IN SERUM, PLASMA OR BLOOD BY CREATININE- BASED FORMULA (CKD-EPI 2020) 71.2 60 10/02 Specimen Type: PLASMA Comment: No hemolysis noted. Ordering Provider: JAY CORDOVA Report Released Date/Time: Oct 02, 2024 11:59 AM Reporting Lab: [facility] [address] [facility] [address] Performing Lab: [facility] [address] [place] [phone] [place] [address] FERRITIN FERRITIN [MASS/VOLUM E] IN SERUM OR PLASMA 37.12 ng/mL 22 - 275 10/02 Specimen Type: SERUM No comment entered. Ordering Provider: JAY CORDOVA Report Released Date/Time: Oct 02, 2024 11:59 AM Reporting Lab: [facility] [address] [address] Performing Lab: [facility] [address] [facility] [address] [facility] HGA1C HEMOGLOBIN A1C/HEMOGLO BIN.TOTAL IN BLOOD 7.0 4.0 - 6.0 10/02 H Specimen Type: BLOOD No comment entered. Ordering Provider: JAY CORDOVA Report Released Date/Time: Oct 02, 2024 11:59 AM Reporting Lab: [facility] [address] [address] Performing Lab: [address] [address] [facility] IRON/TIBC PROFILE IRON BINDING CAPACITY [MASS/VOLUM E] IN SERUM OR PLASMA 306 ug/dL 250 - 450 10/02 Specimen Type: SERUM Comment: No hemolysis noted. Ordering Provider: JAY CORDOVA Report Released Date/Time: Oct 02, 2024 11:59 AM Reporting Lab: [facility] [address] [address] Performing Lab: [facility] [address] [place] [phone] [facility] IRON/TIBC PROFILE TRANSFERRIN [MASS/VOLUM E] IN SERUM OR PLASMA 245 mg/dL 163 - 344 10/02 Specimen Type: SERUM Comment: No hemolysis noted. Ordering Provider: JAY CORDOVA Report Released Date/Time: Oct 02, 2024 11:59 AM Reporting Lab: [facility] [address] [facility] [address] Performing Lab: [facility] [address] [place] [phone] [facility] IRON/TIBC PROFILE IRON SATURATION [MASS FRACTION] IN SERUM OR PLASMA 19 20 - 50 10/02 L Specimen Type: SERUM Comment: No hemolysis noted. Ordering Provider: JAY CORDOVA Report Released Date/Time: Oct 02, 2024 11:59 AM Reporting Lab: [facility] [address] [address] Performing Lab: [facility] [address] [place] [phone] [facility] IRON/TIBC PROFILE IRON [MASS/VOLUM E] IN SERUM OR PLASMA 59 ug/dL 65 - 175 10/02 L Specimen Type: SERUM Comment: No hemolysis noted. Ordering Provider: JAY CORDOVA Report Released Date/Time: Oct 02, 2024 11:59 AM Reporting Lab: [facility] [address] [facility] [address] Performing Lab: [address] [address] [facility] MICRAL/CR EAT PROFILE (STL) ALBUMIN [MASS/VOLUM E] IN URINE 19.0 mg/L 10/02 Specimen Type: URINE No comment entered. Ordering Provider: JAY CORDOVA Report Released Date/Time: Oct 02, 2024 11:59 AM Reporting Lab: [facility] [address] [place] [phone] Performing Lab: [address] [address] [facility] MICRAL/CR EAT PROFILE (STL) ALBUMIN/CRE ATININE [MASS RATIO] IN URINE 53 mg/g 0 - 29 10/02 H Specimen Type: URINE No comment entered. Ordering Provider: JAY CORDOVA Report Released Date/Time: Oct 02, 2024 11:59 AM Reporting Lab: [facility] [address] [address] Performing Lab: [facility] [address] [place] [phone] [facility] MICRAL/CR EAT PROFILE (STL) CREATININE [MASS/VOLUM E] IN URINE 35.6 mg/dL 63 - 166 10/02 L Specimen Type: URINE No comment entered. Ordering Provider: JAY CORDOVA Report Released Date/Time: Oct 02, 2024 11:59 AM Reporting Lab: [place] [address] [address] Performing Lab: [place] [address] [address] [facility] GLUCOSE,B LOOD-poct (STL) GLUCOSE [MASS/VOLUM E] IN BLOOD BY AUTOMATED TEST STRIP 173 mg/dL 72 - 99 07/31 H Specimen Type: BLOOD Comment: Test Performed by: [id number] Meter #: [id number] Ordering Provider: STAR SIMMONS A Report Released Date/Time: Jul 31, 2024 01:30 PM Reporting Lab: [address] [address] Performing Lab: [address] [address] [facility] GLUCOSE,B LOOD-poct (STL) GLUCOSE [MASS/VOLUM E] IN BLOOD BY AUTOMATED TEST STRIP 148 mg/dL 72 - 99 07/31 H Specimen Type: BLOOD Comment: Test Performed by: [id number] Meter #: [id number] Ordering Provider: STAR SIMMONS A Report Released Date/Time: Jul 31, 2024 09:08 AM Reporting Lab: [address] [address] Performing Lab: [address] [address] [facility] BASIC METABOLIC PANEL CREATININE [MASS/VOLUM E] IN SERUM OR PLASMA 1.17 mg/dL 0.7 - 1.3 07/03 Specimen Type: PLASMA Comment: No hemolysis noted. Ordering Provider: STAR SIMMONS A Report Released Date/Time: Jun 24, 2024 11:11 AM Reporting Lab: [address] [address] Performing Lab: [address] [address] [facility] BASIC METABOLIC PANEL UREA NITROGEN [MASS/VOLUM E] IN SERUM OR PLASMA 15.4 mg/dL 9.0 - 25.0 07/03 Specimen Type: PLASMA Comment: No hemolysis noted. Ordering Provider: STAR SIMMONS Report Released Date/Time: Jun 24, 2024 11:11 AM Reporting Lab: [facility] [address] [place] [phone] Performing Lab: [facility] [address] [place] [phone] [facility] BASIC METABOLIC PANEL GLUCOSE [MASS/VOLUM E] IN SERUM OR PLASMA 175 mg/dL 72 - 99 07/03 H Specimen Type: PLASMA Comment: No hemolysis noted. Ordering Provider: STAR SIMMONS Report Released Date/Time: Jun 24, 2024 11:11 AM Reporting Lab: [address] [address] Performing Lab: [address] [address] [facility] BASIC METABOLIC PANEL SODIUM [MOLES/VOLU ME] IN SERUM OR PLASMA 140 meq/L 136 - 145 07/03 Specimen Type: PLASMA Comment: No hemolysis noted. Ordering Provider: STAR SIMMONS A Report Released Date/Time: Jun 24, 2024 11:11 AM Reporting Lab: [address] [address] Performing Lab: [facility] [address] [place] [address] [facility] BASIC METABOLIC PANEL POTASSIUM [MOLES/VOLU ME] IN SERUM OR PLASMA 4.3 meq/L 3.5 - 5 07/03 Specimen Type: PLASMA Comment: No hemolysis noted. Ordering Provider: STAR SIMMONS A Report Released Date/Time: Jun 24, 2024 11:11 AM Reporting Lab: [address] [address] Performing Lab: [address] [address] [facility] BASIC METABOLIC PANEL CHLORIDE [MOLES/VOLU ME] IN SERUM OR PLASMA 106 meq/L 98 - 107 07/03 Specimen Type: PLASMA Comment: No hemolysis noted. Ordering Provider: STAR SIMMONS A Report Released Date/Time: Jun 24, 2024 11:11 AM Reporting Lab: [place] [address] [address] Performing Lab: [address] [address] [facility] BASIC METABOLIC PANEL CARBON DIOXIDE, TOTAL [MOLES/VOLU ME] IN SERUM OR PLASMA 25 meq/L 22 - 31 07/03 Specimen Type: PLASMA Comment: No hemolysis noted. Ordering Provider: STAR SIMMONS A Report Released Date/Time: Jun 24, 2024 11:11 AM Reporting Lab: [address] [address] Performing Lab: [place] [address] [address] [facility] BASIC METABOLIC PANEL CALCIUM [MASS/VOLUM E] IN SERUM OR PLASMA 9.0 mg/dL 8.4 - 10.4 07/03 Specimen Type: PLASMA Comment: No hemolysis noted. Ordering Provider: STAR SIMMONS A Report Released Date/Time: Jun 24, 2024 11:11 AM Reporting Lab: [address] [address] Performing Lab: [address] [address] [facility] BASIC METABOLIC PANEL GLOMERULAR FILTRATION RATE/1.73 SQ M.PREDICTED [VOLUME RATE/AREA] IN SERUM, PLASMA OR BLOOD BY CREATININE- BASED FORMULA (CKD-EPI 2020) 61.1 60 07/03 Specimen Type: PLASMA Comment: No hemolysis noted. Ordering Provider: STAR SIMMONS A Report Released Date/Time: Jun 24, 2024 11:11 AM Reporting Lab: [address] [address] Performing Lab: [facility] [address] [address] [facility] CBC LEUKOCYTES [#/VOLUME] IN BLOOD BY AUTOMATED COUNT 8.1 10*3/u L 3.6 - 11.2 07/03 Specimen Type: BLOOD No comment entered. Ordering Provider: STAR SIMMONS A Report Released Date/Time: Jun 24, 2024 11:11 AM Reporting Lab: [place] [address] [address] Performing Lab: [place] [address] [address] [facility] CBC ERYTHROCYTE S [#/VOLUME] IN BLOOD BY AUTOMATED COUNT 3.72 10*6/u L 4.10 - 5.70 07/03 L Specimen Type: BLOOD No comment entered. Ordering Provider: STAR SIMMONS A Report Released Date/Time: Jun 24, 2024 11:11 AM Reporting Lab: [place] [address] [address] Performing Lab: [address] [address] [facility] CBC HEMOGLOBIN [MASS/VOLUM E] IN BLOOD 11.6 g/dL 13.1 - 16.8 07/03 L Specimen Type: BLOOD No comment entered. Ordering Provider: STAR SIMMONS A Report Released Date/Time: Jun 24, 2024 11:11 AM Reporting Lab: [address] [address] Performing Lab: [address] [address] [facility] CBC HEMATOCRIT [VOLUME FRACTION] OF BLOOD 33.8 38.2 - 48.4 07/03 L Specimen Type: BLOOD No comment entered. Ordering Provider: STAR SIMMONS A Report Released Date/Time: Jun 24, 2024 11:11 AM Reporting Lab: [address] [address] Performing Lab: [facility] [address] [address] [facility] CBC MCV [ENTITIC VOLUME] BY AUTOMATED COUNT 90.9 fL 80.0 - 100.0 07/03 Specimen Type: BLOOD No comment entered. Ordering Provider: STAR SIMMONS A Report Released Date/Time: Jun 24, 2024 11:11 AM Reporting Lab: [address] [address] Performing Lab: [address] [address] [facility] CBC MCH [ENTITIC MASS] BY AUTOMATED COUNT 31.2 pg 27.0 - 34.0 07/03 Specimen Type: BLOOD No comment entered. Ordering Provider: STAR SIMMONS A Report Released Date/Time: Jun 24, 2024 11:11 AM Reporting Lab: [place] [address] [address] Performing Lab: [address] [address] [facility] CBC MCHC [MASS/VOLUM E] BY AUTOMATED COUNT 34.3 g/dL 33.0 - 36.0 07/03 Specimen Type: BLOOD No comment entered. Ordering Provider: STAR SIMMONS A Report Released Date/Time: Jun 24, 2024 11:11 AM Reporting Lab: [place] [address] [address] Performing Lab: [address] [address] [facility] CBC PLATELETS [#/VOLUME] IN BLOOD BY AUTOMATED COUNT 252 10*3/u L 150 - 400 07/03 Specimen Type: BLOOD No comment entered. Ordering Provider: STRA SIMMONS A Report Released Date/Time: Jun 24, 2024 11:11 AM Reporting Lab: [address] [address] Performing Lab: [facility] [address] [address] [facility] CBC PLATELET MEAN VOLUME [ENTITIC VOLUME] IN BLOOD BY AUTOMATED COUNT 8.4 fL 7.5 - 11.2 07/03 Specimen Type: BLOOD No comment entered. Ordering Provider: STAR SIMMONS A Report Released Date/Time: Jun 24, 2024 11:11 AM Reporting Lab: [facility] [address] [address] Performing Lab: [facility] [address] [address] [facility] CBC ERYTHROCYTE DISTRIBUTIO N WIDTH [RATIO] BY AUTOMATED COUNT 13.2 11.8 - 15.1 07/03 Specimen Type: BLOOD No comment entered. Ordering Provider: STAR SIMMONS A Report Released Date/Time: Jun 24, 2024 11:11 AM Reporting Lab: [facility] [address] [address] Performing Lab: [facility] [address] [address] [facility] CBC LYMPHOCYTES /100 LEUKOCYTES IN BLOOD BY AUTOMATED COUNT 14 07/03 Specimen Type: BLOOD No comment entered. Ordering Provider: STAR SIMOMNS A Report Released Date/Time: Jun 24, 2024 11:11 AM Reporting Lab: [facility] [address] [address] Performing Lab: [facility] [address] [address] [facility] CBC MONOCYTES/1 00 LEUKOCYTES IN BLOOD BY AUTOMATED COUNT 9 07/03 Specimen Type: BLOOD No comment entered. Ordering Provider: STAR SIMMONS A Report Released Date/Time: Jun 24, 2024 11:11 AM Reporting Lab: [facility] [address] [address] Performing Lab: [facility] [address] [facility] [address] [facility] CBC NEUTROPHILS /100 LEUKOCYTES IN BLOOD BY AUTOMATED COUNT 75 07/03 Specimen Type: BLOOD No comment entered. Ordering Provider: STAR SIMMONS A Report Released Date/Time: Jun 24, 2024 11:11 AM Reporting Lab: [address] [address] Performing Lab: [address] [address] [facility] CBC EOSINOPHILS /100 LEUKOCYTES IN BLOOD BY AUTOMATED COUNT 1 07/03 Specimen Type: BLOOD No comment entered. Ordering Provider: STAR SIMMONS A Report Released Date/Time: Jun 24, 2024 11:11 AM Reporting Lab: [address] [address] Performing Lab: [address] [address] [facility] CBC BASOPHILS/1 00 LEUKOCYTES IN BLOOD BY AUTOMATED COUNT 1 07/03 Specimen Type: BLOOD No comment entered. Ordering Provider: STAR SIMMONS A Report Released Date/Time: Jun 24, 2024 11:11 AM Reporting Lab: [address] [address] Performing Lab: [address] [address] [facility] CBC LYMPHOCYTES [#/VOLUME] IN BLOOD BY AUTOMATED COUNT 1.17 10*3/u L 0.77 - 4.50 07/03 Specimen Type: BLOOD No comment entered. Ordering Provider: STAR SIMMONS A Report Released Date/Time: Jun 24, 2024 11:11 AM Reporting Lab: [address] [address] Performing Lab: [address] [address] [facility] CBC MONOCYTES [#/VOLUME] IN BLOOD BY AUTOMATED COUNT 0.70 10*3/u L 0.19 - 0.80 07/03 Specimen Type: BLOOD No comment entered. Ordering Provider: STAR SIMMONS A Report Released Date/Time: Jun 24, 2024 11:11 AM Reporting Lab: [address] [address] Performing Lab: [address] [address] [facility] CBC NEUTROPHILS [#/VOLUME] IN BLOOD BY AUTOMATED COUNT 6.11 10*3/u L 2.10 - 8.00 07/03 Specimen Type: BLOOD No comment entered. Ordering Provider: STAR SIMMONS A Report Released Date/Time: Jun 24, 2024 11:11 AM Reporting Lab: [address] [address] Performing Lab: [address] [address] [facility] CBC EOSINOPHILS [#/VOLUME] IN BLOOD BY AUTOMATED COUNT 0.09 10*3/u L 0.00 - 0.60 07/03 Specimen Type: BLOOD No comment entered. Ordering Provider: STAR SIMMONS A Report Released Date/Time: Jun 24, 2024 11:11 AM Reporting Lab: [address] [address] Performing Lab: [address] [address] [facility] CBC BASOPHILS [#/VOLUME] IN BLOOD BY AUTOMATED COUNT 0.04 10*3/u L 0.00 - 0.20 07/03 Specimen Type: BLOOD No comment entered. Ordering Provider: STAR SIMMONS A Report Released Date/Time: Jun 24, 2024 11:11 AM Reporting Lab: [address] [address] Performing Lab: [address] [address] [facility] Vital Signs Combined list of inpatient and outpatient Vital Signs from Department of Defense and Veterans Affairs, ranging from 12 months to all on record, depending upon the facility. Vital Sign Value Date Comments Source SYSTOLIC BLOOD PRESSURE 147 10/03/19 11:15:02 [facility] DIASTOLIC BLOOD PRESSURE 64 025 11:15:02 [facility] PULSE OXIMETRY 99 10/02/2024 11:15:02 [facility] WEIGHT 171.6 10/02/2024 11:15:02 [facility] BMI 30 kg/m2 10/02/2024 11:15:02 [facility] PAIN 2 10/02/2024 11:15:02 [facility] TEMPERATURE 97.9 10/02/2024 11:15:02 [facility] PULSE 62 10/02/2024 11:15:02 [facility] RESPIRATION 17 10/02/2024 11:15:02 [facility] SYSTOLIC BLOOD PRESSURE 146 08/21/19 09:55:08 [facility] DIASTOLIC BLOOD PRESSURE 70 025 09:55:08 [facility] PULSE OXIMETRY 98 08/21/2024 09:55:08 [facility] WEIGHT 171.7 08/21/2024 09:55:08 [facility] BMI 30 kg/m2 08/21/2024 09:55:08 [facility] PAIN 1 08/21/2024 09:55:08 [facility] HEIGHT 63 08/21/2024 09:55:08 [facility] TEMPERATURE 97.9 08/21/2024 09:55:08 [facility] PULSE 71 08/21/2024 09:55:08 [facility] RESPIRATION 16 08/21/2024 09:55:08 [facility] SYSTOLIC BLOOD PRESSURE 149 08/16/19 08:25:21 [facility] DIASTOLIC BLOOD PRESSURE 63 025 08:25:21 [facility] PULSE OXIMETRY 99 08/16/2024 08:25:21 [facility] WEIGHT 172.1 08/16/2024 08:25:21 [facility] BMI 31 kg/m2 08/16/2024 08:25:21 [facility] PAIN 0 08/16/2024 08:25:21 [facility] HEIGHT 63 08/16/2024 08:25:21 [facility] TEMPERATURE 97.9 08/16/2024 08:25:21 [facility] PULSE 66 08/16/2024 08:25:21 [facility] RESPIRATION 18 08/16/2024 08:25:21 [facility] SYSTOLIC BLOOD PRESSURE 140 08/07/19 25 09:11:41 [facility] DIASTOLIC BLOOD PRESSURE 67 025 09:11:41 [facility] PULSE OXIMETRY 98 08/07/2024 09:11:41 [facility] WEIGHT 169 08/07/2024 09:11:41 [facility] BMI 30 kg/m2 08/07/2024 09:11:41 [facility] PAIN 1 08/07/2024 09:11:41 [facility] HEIGHT 63 08/07/2024 09:11:41 [facility] TEMPERATURE 97.9 08/07/2024 09:11:41 [facility] PULSE 62 08/07/2024 09:11:41 [facility] RESPIRATION 18 08/07/2024 09:11:41 [facility] SYSTOLIC BLOOD PRESSURE 178 08/03/19 25 14:35:00 [facility] DIASTOLIC BLOOD PRESSURE 76 025 14:35:00 [facility] PAIN 0 08/03/2024 14:35:00 [facility] TEMPERATURE 97.6 08/03/2024 14:35:00 [facility] PULSE 71 08/03/2024 14:35:00 [facility] RESPIRATION 16 08/03/2024 14:35:00 [facility] Encounters Combined list of: 1) Encounters from Department of [facility] Affairs facilities going backup to the last 18 months, not all [place] inpatient encounters are included; 2) Encounters from the Department of [facility] facilities going backup to 280 months. Location Location Details Encounter Type Encounter Number Reason For Visit Attending Provider ADM Date DC Date Status Disposition Source [facility] Outpatient Encounter [id number] CHELSEY TRACY URENCIA A [facility] [place] ADMIN [id number] Diagnos is: ICD-10- CM Z00.01 Encount er for general adult medical exam w abnorma l finding s TATIANNA PANCHAL 04/27 [facility] Outpatient Encounter 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 [id number] Chiki PLEITEZ III 06/30 [facility] S[facility] 81577-9. [id number] 462 Diagnos is: ICD-10- CM R54 Age-rel ated physica l debilit y DEONJEAN Bey 07/05 [facility] Outpatient Encounter [id number]. [id number] 08/03 [facility] AQUATIC THERAPY/EX ERCISES 30988-6. [id number] Diagnos is: ICD-10- CM R54 Age-rel ated physica l debilit y DEONJEAN Bey 08/03 [facility] Outpatient Encounter [id number]. [id number] 08/08 [facility] Outpatient Encounter [id number] KLIPFEL,LA URENCIA A 08/08 [facility] THERAPEUTI C EXERCISES 06482-9. [id number] Diagnos is: ICD-10- CM R54 Age-rel ated physica l debilit y JEAN CHAVARRIA 08/16 [facility] THERAPEUTI C EXERCISES 86305-2.65 [id number] Diagnos is: ICD-10- CM R54 Age-rel ated physica l debilit y JEAN CHAVARRIA 08/18 [facility] ASSMT/REAS SESSMENT [id number] [id number] Diagnos is: ICD-10- CM I10 Essenti al (primar y) hyperte nsion JEAN CHAVARRIA 08/28 [facility] Outpatient Encounter [id number] KLIPFEL,LA URENCIA A 09/20 [facility] Outpatient Encounter [id number] [id number] BUCK,MALLO RY A 09/24 [facility] Outpatient Encounter [id number] [id number] KLIPFEL,LA URENCIA A 09/24 [facility] OFFICE O/P EST MOD 30 MIN [id number] [id number] Diagnos is: ICD-10- CM 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 Outpatient Encounter [id number] [id number] TATIANNA PANCHAL 09/25 [facility] G COM STCKING BK 18-30 CUSTM 57057-7.65 [id number] Diagnos is: ICD-10- CM Z46.89 Encount er for fitting and adjustm ent of oth devices RECORD,RICHELLE CASTILLO E 10/08 [facility] Outpatient Encounter [id number] [id number] TATIANNA PANCHAL 10/31 [facility] Outpatient Encounter 49593-7.65 [id number] 03/13 [facility] Outpatient Encounter 61740-7.65 [id number] BUCKKELLEE CHAHAL A 04/23 [facility] OFF[facility] O/P EST MOD 30 MIN 64245-9.65 [id number] Diagnos is: ICD-10- CM I10 Essenti al (primar y) hyperte nsion TATIANNA PANCHAL 04/25 [facility] OFFICE O/P NEW MOD 45 MIN 65231-5.65 [id number] Diagnos is: ICD-10- CM L57.0 Actinic keratos is AB JJ BY LESLIE 05/28 [facility] OFFICE O/P EST MOD 30 MIN [id number] [id number] Diagnos is: ICD-10- CM H25.13 Age-rel ated nuclear catarray oquendo J JANETTE B III 06/04 [facility] CMPTR OPHTH IMG OPTIC NERVE 27655-2.65 [id number] 5 Diagnos is: ICD-10- CM 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 MANDA S 06/04 [facility] Outpatient Encounter [id number] [id number] MARYANN HOUSTON Kayla 06/07 [facility] FITTING/CH ECKING 55008-6.65 [id number] Diagnos is: ICD-10- CM H90.3 Sensori neural hearing loss, bilzina Chiki Hurtado 06/19 [facility] OFF/OP CNSLTJ NEW/EST MOD 40 [id number] [id number] 4 Diagnos is: ICD-10- CM C43.62 Maligna nt melanom a of left upper limb, includi ng heathe r AFT,REBECC A 06/21 [facility] FITTING/CH ECKING [id number] [id number] 1 Diagnos is: ICD-10- CM H90.3 Sensori neural hearing loss, bilzina may ELIO MONTES 06/24 [facility] Outpatient Encounter [id number] [id number] 06/24 [facility] Outpatient Encounter [id number] [id number] Jaqueline SHIRLEY 07/01 [facility] OFFICE O/P NEW LOW 30 MIN [id number] [id number] 8 Diagnos is: ICD-10- CM C43.9 Maligna nt melanom a of skin, unspeci HUONG Tony 07/03 [facility] Outpatient Encounter [id number] [id number] 3 Diagnos is: ICD-10- CM Z01.818 Encount er for other preproc edural examina tiLACHO Rizo F 07/04 [facility] [id number] [id number] 9 Diagnos is: ICD-10- CM H90.3 Sensori neural hearing loss, Chiki Simms N 07/15 [facility] PH1 ASSMT&MGMT NQHP 5-10 54049-8.65 [id number] 8 Diagnos is: ICD-10- CM C43.62 Maligna nt melanom a of left upper limb, includi ng ligia r JOSLYN GONZALEZ 07/30 [facility] OFFICE O/P EST LOW 20 MIN [id number] [id number] Diagnos is: ICD-10- CM Z01.818 Encount er for other preproc edural examina sabas HUMMEL MA TODD 07/31 [facility] EDU&TRN PT SELF-MGMT NQHP 1 41564-9.65 [id number] 8 Diagnos is: ICD-10- CM C43.62 Maligna nt melanom a of left upper limb, includi ng heathe r AFT,REBECC A 07/31 [facility] Outpatient Encounter [id number] [id number] 07/31 [facility] HOSP IP/OBS SM DT SF/LOW 45 54032-7.65 [id number] 0 Diagnos is: ICD-10- CM C43.9 Maligna nt melanom a of skin, unspeci fied AFT,REBECC A 07/31 [facility] Outpatient Encounter [id number] [id number] 07/31 [facility] Outpatient Encounter [id number] [id number] Kyala PICKARD 07/31 [facility] Outpatient Encounter 54650-7.65 [id number] 3 HUONG WEATHERS 07/31 [facility] Outpatient Encounter 90273-4.65 [id number] 07/31 [facility] Outpatient Encounter 08422-5.65 [id number] 1 AFT,SIVA A 07/31 [facility] Outpatient Encounter 87394-4.65 [id number] HUONG WEATHERS 07/31 [facility] Outpatient Encounter 74199-9.65 [id number] 6 AFT,SIVAC A 07/31 [facility] SPLT AGRFT T/A/L 1ST 100SQCM 12443-8.65 [id number] 3 Diagnos is: ICD-10- CM C43.62 Maligna nt melanom a of left upper limb, includi ng shoulde r CARLY RICHARDS M 07/31 [facility] Outpatient Encounter [id number] [id number] CARLY RICHARDS 07/31 [facility] Outpatient Encounter 97022-4.65 [id number] 6 Kayla PICKARD 07/31 [facility] Outpatient Encounter 84619-6.65 [id number] Jie NIE 07/31 [facility] Outpatient Encounter 85742-6.65 [id number] 08/02 [facility] Outpatient Encounter 75245-3.65 [id number] 08/02 [facility] Outpatient Encounter 76432-2.65 [id number] 08/03 [facility] Outpatient Encounter 37925-7.65 [id number] 1 JAMAL PRADO ERT C 08/03 [facility] EMERGENCY DEPT VISIT [facility] 25916-1.65 [id number] Diagnos is: ICD-10- CM Z48.817 Encntr for surgica l aftcr fol surgery on the skin, subcu JAMAL PRADO ERT C 08/03 [facility] Outpatient Encounter [id number] [id number] 1 SANTIAGO GONZALEZ 08/03 [facility] Outpatient Encounter [id number] [id number] JAMAL PRADO C 08/03 [facility] PH1 ASSMT&MGMT NQHP 5-10 [id number] [id number] Diagnos is: ICD-10- CM C43.62 Maligna nt melanom a of left upper limb, includi ng EMILIANA Dodd 08/05 [facility] Outpatient Encounter 50742-3.65 [id number] 1 ROMAN AVILA S 08/06 [facility] OFFICE O/P EST LOW 20 MIN 62925-5.65 [id number] Diagnos is: ICD-10- CM C43.9 Maligna nt melanom a of skin, unspeci fied SARAHYHUONG 08/07 [facility] Outpatient Encounter [id number] [id number] SARAHYHUONG 08/09 [facility] OFFICE O/P EST LOW 20 MIN 34622-5.65 [id number] Diagnos is: ICD-10- CM C43.9 Maligna nt melanom a of skin, unspeci fied AFT,REBECC A 08/16 [facility] POSTOP FOLLOW-UP VISIT 51913-0.65 [id number] 3 Diagnos is: ICD-10- CM C43.9 Maligna nt melanom a of skin, unspeci ed SARAHYHUONG 08/21 [facility] Outpatient Encounter [id number] [id number] 3 Chiki CHAPMAN 08/27 [facility] OFFICE O/P EST LOW 20 MIN 80993-1.65 [id number] Diagnos is: ICD-10- CM L57.0 Actinic keratos is AB JJ BY LESLIE 08/28 [facility] OFFICE O/P EST LOW 20 MIN [id number] [id number] Diagnos is: ICD-10- CM 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 COUPER,CHRISSY LETICIA G 09/05 [facility] OFFICE O/P EST LOW 20 MIN 73151-4.65 [id number] 1 Diagnos is: ICD-10- CM 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 CHRISSY SANCHEZ G 09/19 [facility] XM&SLCTN BINAURL 10039-9.65 [id number] 1 Diagnos is: ICD-10- CM Z46.1 Encount er for fitting and adjustm ent of hearing aid SHANELL CASTELAN 09/27 [facility] Outpatient Encounter [id number] [id number] BUCK,MALLO RY A 09/27 [facility] OFFICE O/P EST MOD 30 MIN [id number] [id number] Diagnos is: ICD-10- CM I10 Essenti al (primar y) hyperte nsion SORIN,ROGELIO HAEL D 10/02 [facility] OFFICE O/P EST LOW 20 MIN [id number] [id number] Diagnos is: ICD-10- CM C43.62 Maligna nt melanom a of left upper limb, includi ng shoulde r CHRISSY SANCHEZ G 10/02 [facility] Outpatient Encounter [id number] [id number] 10/07 [facility] SUP/ACCESS /DEV 61309-9.65 [id number] Diagnos is: ICD-10- CM Z46.1 Encount er for fitting and adjustm ent of hearing aid SHANELL CASTELAN 10/21 [facility] OFFICE O/P EST SF 10 MIN [id number] [id number] Diagnos is: ICD-10- CM C44.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 Procedure Procedure Type Code Date Perfomer Comments Sourc e split thickne skin graft to left dorsal forearm SPLT AGRFT T/A/L 1ST 100SQCM 24313 07/31/2024 SPIKE MACHADO [facility] Wide Local Excision of Left Arm Melanoma EXC TR-EXT MAL+KATELYNN >4 [place] [address] 07/31/2024 KWAKU HOANG [facility] Social History Combined list of available smoking, tobacco, and other social history from Department of Defense and Veterans Affairs facilities. Social History Type Response Date Comment Source Tobacco smoking status NHIS VA-TOBACCO FORMER USER 04/25/2024 [facility] History of tobacco use VA-TOBACCO QUIT 15 YRS OR MORE 04/25/2024 [facility] History of tobacco use VA-TOBACCO NEVER USED 04/27/2023 [facility] History of tobacco use VA-TOBACCO NEVER USED 03/11/2022 [facility] History of tobacco use VA-TOBACCO QUIT 15 YRS OR MORE 03/26/2021 [facility] History of tobacco use VA-TOBACCO NEVER USED 10/16/2019 [facility] History of tobacco use VA-TOBACCO FORMER USER 11/13/2017 [facility] History of tobacco use QUIT TOBACCO >7 YEARS AGO 10/24/2017 [facility] History of tobacco use QUIT TOBACCO >7 YEARS AGO 12/07/2015 [facility] History of tobacco use QUIT TOBACCO >7 YEARS AGO 05/20/2014 [facility] History of tobacco use QUIT TOBACCO >7 YEARS AGO 02/19/2013 [facility] History of tobacco use NO TOBACCO >12M <7YR 09/09/2009 [facility] History of tobacco use QUIT TOBACCO >7 YEARS AGO 12/20/2006 [facility] History of tobacco use CURRENT NON-TOBACCO USER-HX OF USE 06/12/2006 [facility] History of tobacco use CURRENT NON-TOBACCO USER-HX OF USE 12/07/2005 [facility] History of tobacco use CURRENT NON-TOBACCO USER-HX OF USE 03/21/2005 [facility] History of tobacco use CURRENT NON-TOBACCO USER-HX OF USE 03/03/2004 [facility] History of tobacco use CURRENT NON-TOBACCO USER-HX OF USE 04/21/2003 QUIT 1972 [facility] History of tobacco use CURRENT NON-TOBACCO USER-RECENTLY QUIT 11/07/2002 quit 1972 [facility] History of tobacco use CURRENT NON-TOBACCO USER-HX OF USE 11/08/2001 quit 20 yrs. ago [facility] Plan of Care List of future care activities from [facility] facilities. Additional future care activities may be listed in the Assessment and Plan section. Date/Time Care Activity Care Activity Detail Facili ty 10/29/2024 AMBULATORY - REHAB MEDICINE AMBULATORY - REHAB MEDICINE [facility] Advance Directives List of completed, amended, or rescinded Advance Directives on record at [facility] facilities. An actual copy of the Directive is not included. Date Advance Directive Provider Source 03/26/2021 ADVANCE DIRECTIVE DISCUSSION Jaqueline LEON [facility] 06/12/2014 ADVANCE DIRECTIVE DISCUSSION GÓMEZ ESPINAL [facility]
--- OUTSIDE RECORDS SUMMARY | 2024-10-22 12:45 | XMS_ITS | Referral Summary ---
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 Gender Identity Male 06/21/2021 9:06 AM CERTIFIED CODING SPECIALIST Sexual Orientation Bisexual 06/21/2021 9: 15 AM CERTIFIED CODING SPECIALIST Last Filed Vital Signs Vital Sign Reading Time Taken Comments Blood Pressure 148/62 11/22/2022 1:42 PM CDT Pulse 80 11/22/2022 1:42 PM CDT Temperature 36.4 C (97.5 F) 06/23/2020 10:59 AM CERTIFIED CODING SPECIALIST Respiratory Rate - - Oxygen Saturation 97% 11/22/2022 1:42 PM CDT Inhaled Oxygen Concentration - - Weight 82.6 kg (182 lb) 11/22/2022 1:42 PM CDT Height 160 cm (5' 3 ) 11/22/2022 1:42 PM CDT Body Mass Index 32.24 11/22/2022 1:42 PM CDT Plan of Treatment Not on file Insurance MEDICARE [employer] [facility] Care Teams Coutierier Relationship Specialty Start Date End Date Glen Enamorado DO PCP - General Internal Medicine 05/07/20
--- OUTSIDE RECORDS SUMMARY | 2024-10-22 12:45 | XMS_ITS | Clinical Summary ---
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 Gender Identity Male 06/21/2021 9:06 AM DREDGE PIPE OPERATOR Sexual Orientation Bisexual 06/21/2021 9: 15 AM DREDGE PIPE OPERATOR Obstetrics History Last Filed Vital Signs Vital Sign Reading Time Taken Comments Blood Pressure 148/62 11/22/2022 1:42 PM CDT Pulse 80 11/22/2022 1:42 PM CDT Temperature 36.4 C (97.5 F) 06/23/2020 10:59 AM DREDGE PIPE OPERATOR Respiratory Rate - - Oxygen Saturation 97% [...] Influenza Vaccine (#1) 2024 05/14/2013 Insurance MEDICARE [facility] Care Teams Temp Recruiter Relationship Specialty Start Date End Date Glen Enamorado DO PCP - General Internal Medicine 05/07/20
--- OUTSIDE RECORDS SUMMARY | 2024-10-22 12:45 | XMS_ITS | Encounter Summary ---
Author Organization [facility] Address [address] [place] [address] Care Team Providers Care Chef Broiler Or Fry Name Role Phone Unavailable Primary Care Provider Unavailabl e Encounter Details Date Type Department Care Team (Late st Contact Info) Description 10/10/2022 Lab Requisition [facility] [address] [place] [address] Martin Wooten MD [address] [place] [address] Social History Tobacco Use Types [...] AM CDT) Case Report Dermatopathology Report Case: [id number] Authorizing Provider: Martin Wooten MD Collected: 10/10/2022 12:00 AM Ordering Location: [facility] D[facility] Lab Received: 10/10/2022 02:56 PM [...] of a curettage and desiccation biopsy measuring [id number], 9m5y8zl and 6d0r0fr that are all inked. Jar 0+. 12:34 [...] characteristic determined by the Dermatopathology Laboratory at [facility], directed by Dr. Jordyn Castelan. These tests need not be, and therefore are not, approved by the [place] Food and Drug Administration. The tests are used for clinical purposes. Billing Codes Specimen Charges Stain Charges 62528 1 3 12:34 PM CDT DERMATOPATHOLOGY LABORATORY Embedded Images 3 12:34 PM CDT DERMATOPATHOLOGY LABORATORY Pathology/Cytolog y TISSUE SPECIMEN FROM SKIN / Unknown 10/10/2022 10/10/2022 2:56 PM CDT Martin Wooten MD LAB - PATHOLOGY/CYTO LOGY ORDERABLES DERMATOPATHOLOGY LABORATORY [facility] - Department of Dermatology [address], [address] [phone] documented in this encounter Visit Diagnoses Not on filedocumented in this encounter
--- OUTSIDE RECORDS SUMMARY | 2024-10-22 12:45 | XMS_ITS | Clinical Summary ---
Author Organization [facility] Address [address] [place] [address] Care Team Providers Care Records Coordinator Name Role Phone Unavailable Primary Care Provider Unavailabl e Source Comments [facility],non-owned Affiliates and Associated Physician Practices is amultiple site organization consisting of ambulatory clinics and hospital sitesin [place], [place], [place] and [place]. This disclosure is being madepursuant to the Care Everywhere program and may not contain all information available regarding this patient. Last updated 18.[facility] [employer] Social History Tobacco Use Types Packs/Day Years [...]
[2024-10-22 12:56] LABS: D Dimer 1.61 ug/mL (<0.48)
[2024-10-22 12:59] LABS: Influenza A QL RT-PCR Negative (Negative); Influenza B QL RT-PCR Negative (Negative); RSV RNA, RT-PCR Negative (Negative); SARS-CoV-2 RNA PCR Negative (Negative)
--- NOTE | 2024-10-22 14:08 | ECG_ITS ---
Test Date: 2024-10-22 14:19:06 Measurements Intervals [place] Rate: 62 P: 94 MN: 172 QRS: -42 QRSD: 113 T: 19 QT: 410 QTc: 418 Interpretive Statements SINUS RHYTHM WITH SINUS ARRHYTHMIA INTRAVENTRICULAR CONDUCTION DELAY POSSIBLE ANTERIOR MYOCARDIAL INFARCTION , OF INDETERMINATE AGE INFERIOR INFARCT, AGE INDETERMINATE ABNORMAL ECG Compared to ECG 10/22/2024 12:06:47 No significant changes Electronically Signed On 10-22-2024 14:42:28 CDT by Jackson Morton D.O.
[2024-10-22 14:45] LABS: Troponin I 0.021 ng/mL (0.000-0.034)
[2024-10-22] MEDS: APIXABAN 5 MG TABLET PO ×2 (15:37→22:35)
--- NOTE | 2024-10-22 16:37 | PM.IMHP ---
H&P: HPI History of Present Illness Date/Time: 10/22/24 16:37 Chief Complaint: Chest Pain, Shortness of Breath Narrative: 84 y/o M with PMH of coronary artery disease, hypothyroidism, hyperlipidemia, diabetes, and hypertension presents here with chest pain, shortness of breath, and palpitations. The patient presents here from home for further evaluation of midsternal chest pain, shortness of breath, and palpitations. He reports onset this morning at 08:30 a.m. which he noted later after he woke up. He describes the chest pain as dull, nonradiating, intermittent, 30 mins - 1 hr in duration. No aggravating or alleviating factors. Did not trial any prescription or OTC medications for his symptoms. Chest pain is also accompanied by generalized weakness, very mild shortness of breath, diaphoresis, and lightheaded. He denies nausea, vomiting, fever, chills, or diarrhea. He has a cardiac history significant for coronary artery disease, no previous history of dysrhythmia, LA, or stent placement. Initial VS at presentation: HR 130, RR 14, 111/87, and 100% on RA. ED workup showed: No leukocytosis, hemoglobin 13.7 (previously 11.9 in June of 2024), D-dimer elevated (CTA negative for acute findings or PE), no significant electrolyte derangements, creatinine 1.05 and GFR >60, glucose 185, initial troponin negative, BNP 5 9 1, and viral PCR negative. CXR showed mild linear discoid atelectasis/scarring in the bilateral lower lung zones, no other acute cardiopulmonary disease. Chest CTA showed no PE or acute cardiopulmonary findings. Review of Systems Review of Systems: All systems reviewed & are unremarkable except as noted in HPI and below [facility] Past Medical History Medical History (Updated 10/22/24 @ 22:46 by Brittany Holloway APRN) Retinal detachment s/p cryosurgery, 2002 CAD (coronary artery disease) Hernia BMI 29.0-29.9,adult Neuropathy COVID-19 Essential (primary) hypertension Gastro-esophageal reflux disease without esophagitis Other and unspecified hyperlipidemia Hypothyroidism Type 2 diabetes mellitus without complication, with no history of insulin use Vitamin D deficiency Surgical History Surgical History (Updated 10/22/24 @ 22:46 by Brittany Holloway APRN) History of cholecystectomy History of appendectomy History of colon resection Family History Family History Mother Family history of gastrointestinal disorder, Onset Age: 85 Family history of congestive heart failure, Onset Age: 85 Patient's mother is Family history of heart disease in male family member before age 55 Family history of congenital heart disease, Onset Age: 85 Father Family history of Alzheimer's disease, Onset Age: 89 Patient's father is Family history of renal failure Sibling Family history of Alzheimer's disease Other Hypertension Social History Social History Smoking packs per day: 0.5 Smoking cigarettes per day: 10.0 Years smoked: 4 Smoking pack-years: 2.00 Smoking status: Former smoker Tobacco type: cigarettes Second hand tobacco smoke exposure: No Additional smoking assessment comments: quit smoking in 1963 Alcohol intake: never Substance use: never Substance use type: does not use Do You Feel Safe in your Home?: Yes Lack of Transportation: No Lack of Food: Never True Current Housing: I Have Housing Concerned About Future Housing: No Difficulty Paying Gas/Electric Bills: No Difficulty Paying for Meds: No Currently Unemployed: No Education: Bachelor's Degree Difficulty w/ Childcare or Family Care: No Living arrangements: with family Occupation/Education: retired 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[employer], [employer]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 Gender identity (if verbalized by the patient): Male Spiritual care concerns: No Meds Home Medications and Allergies Home Medications ?Medication ?Instructions ?Recorded ?Confirmed ?Type cholecalciferol (vitamin D3) 50 2,000 unit PO DAILY #90 tabs 06/28/19 10/22/24 Rx mcg (2,000 unit) tablet metronidazole 0.75 % topical gel 1 applic topical BID 01/03/20 10/22/24 History multivitamin 1 cap PO 1200 04/29/20 10/22/24 History mecobalamin (vitamin B12) 1,000 1,000 mcg PO 1200 11/03/20 10/22/24 History mcg disintegrating tablet,sublingual loratadine 10 mg capsule 10 mg PO DAILY 06/08/21 10/22/24 History aspirin 81 mg tablet,delayed 81 mg PO 1200 10/31/21 10/22/24 History release diclofenac sodium 1 % topical gel 4 g topical QID PRN knee pain #100 09/27/23 10/22/24 Rx grams amlodipine 5 mg tablet See Rx Instructions .Route 09/12/24 10/22/24 Rx .COMPLEX #90 tabs lisinopril 40 mg tablet See Rx Instructions .Route 09/12/24 10/22/24 Rx .COMPLEX #90 tabs levothyroxine 75 mcg tablet 75 mcg PO DAILY #90 tabs 09/19/24 10/22/24 Rx (Euthyrox) empagliflozin 5 mg-metformin 1,000 See Rx Instructions .Route 09/26/24 10/22/24 Rx mg tablet (Synjardy) .COMPLEX #180 tabs ferrous sulfate 325 mg (65 mg See Rx Instructions .Route 10/08/24 10/22/24 Rx iron) tablet .COMPLEX #90 tabs omeprazole 40 mg capsule,delayed See Rx Instructions .Route 10/08/24 10/22/24 Rx release .COMPLEX #90 caps metoprolol succinate 25 mg 25 mg PO QPM 10/22/24 10/22/24 History tablet,extended release 24 hr Allergies Allergy/AdvReac Type Severity Reaction Status Date / Time No Known Allergies Allergy Mild Verified 10/22/24 18:34 Vital Signs Vital Signs - 24 hr 10/22/24 11:15 10/22/24 11:15 10/22/24 11:23 Pulse Rate 130 H 135 H Respiratory Rate 14 11 L 11 L Blood Pressure 111/87 111/87 Pulse Oximetry 100 100 98 Oxygen Delivery 10/22/24 11:25 10/22/24 11:30 10/22/24 11:45 Pulse Rate 136 H 135 H Respiratory Rate 18 12 Blood Pressure 116/86 113/82 Pulse Oximetry 100 96 96 Oxygen Delivery Room Air 10/22/24 11:55 10/22/24 12:00 10/22/24 12:28 Pulse Rate 134 H 133 H 71 Respiratory Rate 11 L 16 Blood Pressure 106/84 120/74 Pulse Oximetry 98 100 Oxygen Delivery 10/22/24 12:30 10/22/24 12:45 10/22/24 13:01 Pulse Rate 68 65 68 Respiratory Rate 14 16 13 Blood Pressure 118/67 133/72 129/71 Pulse Oximetry 100 100 100 Oxygen Delivery 10/22/24 14:14 10/22/24 14:16 10/22/24 14:31 Pulse Rate 61 62 63 Respiratory Rate 15 13 16 Blood Pressure 151/77 H 142/71 H 147/76 H Pulse Oximetry 100 99 98 Oxygen Delivery 10/22/24 14:46 10/22/24 15:00 10/22/24 15:16 Pulse Rate 57 L 60 61 Respiratory Rate 11 L 17 17 Blood Pressure 135/73 144/75 H 144/69 H Pulse Oximetry 99 98 100 Oxygen Delivery 10/22/24 15:31 10/22/24 15:46 Pulse Rate 63 69 Respiratory Rate 15 18 Blood Pressure 162/79 H 160/81 H Pulse Oximetry 100 100 Oxygen Delivery Exam Const: General: comfortable and no acute distress Other: , male, nontoxic appearance HENMT: Face/Nose/Sinus: Normal nares present Mouth: Yes moist mucous membranes Eyes: General: appearance normal, both eyes and all related structures Sclera: sclerae normal Pupils: Equal, round and reactive pupils present EOM: EOMs intact bilaterally Resp: Effort & Inspection: normal respiratory effort Auscultation: clear to auscultation bilaterally Cardio: Rate: regular rate Rhythm: regular rhythm Other: S1-S2 present without murmur, rub, ectopy Skin: General skin exam: normal color and no rashes or lesions noted Wounds: no wounds Neuro: Speech: normal speech Motor exam (neuro): 5/5 motor strength present throughout Sensory Exam: normal sensation Other: A&O x4 Extrem: General: normal to inspection Psych: Mental Status: mental status grossly normal Affect: normal affect Other: Good insight and judgment, pleasant H&P: Results Labs Labs: Short CBC 10/22/24 Range/Units 11:23 WBC 9.3 (4.5-10.0) K/mm3 Hgb 13.7 L (14.0-18.0) g/dL Hct 39.5 L (42.0-52.0) % Plt Count 306 (150-375) k/mm3 BMP 10/22/24 11:23 Sodium 139 Potassium 3.6 Chloride 106 Carbon Dioxide 23 BUN 15 Creatinine 1.05 Glucose 185 H Calcium 9.3 Cardiac Enzymes 10/22/24 10/22/24 Range/Units 11:23 14:12 Troponin I < 0.012 0.021 D (0.000-0.034) ng/mL Liver Function 04/01/25 Range/Units 11:23 Total Bilirubin 1.1 (0.2-1.3) mg/dL AST 28 (17-59) U/L ALT 19 (6-50) U/L Alkaline Phosphatase 98 (38-126) U/L Albumin 4.2 (3.5-5.1) g/dL Assessment and Plan Assessment and plan (1) Atrial flutter: Qualifiers: Atrial flutter type: unspecified Qualified Code(s): I48.92 - Unspecified atrial flutter Code(s): I48.92 - Unspecified atrial flutter Status: Acute Assessment and Plan: - EKG, initial: Atrial flutter/tachycardia with RVR, rate 135, incomplete LBBB, possible anterior LA probably old, inferior infarct age indeterminate, ST-T-wave abnormality in high lateral leads consider ischemia. - given metoprolol 5 mg IV: HR 130 Aflutter -> 65 NSR. Will continue metoprolol 25 mg ER daily. - CHADSVasc: 5, started on Eliquis 5 mg BID - check TSH - 3.4 - cardiology consulted - telemetry monitoring (2) Chest pain: Qualifiers: Chest pain type: unspecified Qualified Code(s): R07.9 - Chest pain, unspecified Code(s): R07.9 - Chest pain, unspecified Status: Acute Assessment and Plan: - initial EKG showed atrial flutter, rate 135. Given metoprolol IV x1, conversion to NSR with rate in the 60s. No recurrent chest pain since resolution of tachycardia. Remains vaguely lightheaded. - CXR: Mild linear discoid atelectasis/scarring in the bilateral lower lung zones. No other acute cardiopulmonary disease. - chest CTA: No pulmonary embolism or other acute cardiopulmonary disease. - Troponin: < 0.012m -> 0.021 -> 0.042 -> 0.043, flat. - BNP 591 echo, previous (2020): Normal systolic function, estimated EF 65-70%, grade 1 diastolic dysfunction. See report for full details. - ASA 324 given -> 81 daily - SL nitro PRN - cardiology consulted, awaiting recs - telemetry monitoring (3) Type 2 diabetes mellitus without complication, with no history of insulin use: Code(s): E11.9 - Type 2 diabetes mellitus without complications Status: Chronic Assessment and Plan: - hypoglycemia protocol - POC blood glucose ACHS - home medication: Hold Empagliflozin-metformin in case of need for contrast. - correct regimen ordered - low dose TIDWM, based off TDD - A1C 6.9% on 07/16/2024 (4) Essential (primary) hypertension: Code(s): I10 - Essential (primary) hypertension Status: Chronic Assessment and Plan: - chronic, currently 160/82 - continue home medications: Metoprolol ER 25 daily, amlodipine 5 mg daily, lisinopril 40 mg daily - monitor Plan Patient is uncomfortable going home despite no recurrence of chest pain. ED provider spoke with on-call artificial stone setter, amenable to seeing patient during admission for observation. Monitoring patient for recurrent chest pain or recurrent dysrhythmia. Diet: Heart healthy GI Prophylaxis: Not currently indicated DVT Prophylaxis: Eliquis Lines: Peripheral Code Status: Full code Quality VTE Prophylaxis VTE prophylaxis: pharmacologic ordered Hospitalist MIPS Advance Care Plan I have confirmed that the patient's Advanced Care Plan is present, code status is documented, or surrogate decision maker is listed in patient medical record.: Yes Medication Reconciliation I have utilized all available resources to obtain, update and review the patients current medications (includes all prescriptions, OTC, herbals, cannabis, and nutritional supplements).: Yes
--- NOTE | 2024-10-22 16:59 | ECG_ITS ---
Test Date: 2024-10-22 17:14:38 Measurements Intervals [place] Rate: 59 P: 8 AL: 168 QRS: -36 QRSD: 108 T: 30 QT: 427 QTc: 425 Interpretive Statements SINUS BRADYCARDIA POSSIBLE ANTERIOR MYOCARDIAL INFARCTION , PROBABLY OLD INFERIOR INFARCT, AGE INDETERMINATE ABNORMAL ECG Compared to ECG 10/22/2024 14:19:06 NO SIGNIFICANT CHANGE Electronically Signed On 10-22-2024 17:33:17 CDT by Jackson Morton D.O.
[2024-10-22] MEDS: ACETAMINOPHEN 500 MG TABLET 1000 MG PO (17:23)
[2024-10-22 17:55] LABS: Troponin I 0.042 ng/mL (0.000-0.034)
--- NOTE | 2024-10-22 18:30 | ADMGEN ---
This patient, Loy Gonzalez, was admitted to Medical Room 244-. Patient/family oriented to hospital policies and general routines including ID bracelet, bed and alarms, visiting hours, pain management, procedures, bathroom and other care routines, personal items, smoking policy, room service/diet, and visiting hours. Information on how to activate the Rapid Response Team has been discussed. Patient/Family are encouraged to report perceived risks to care and to ask questions if they do not understand what they are told or what they should do.
[2024-10-22 20:42] LABS: Glucose Point of Care 182 mg/dl (65-105)
[2024-10-22] MEDS: PANTOPRAZOLE 40 MG TABLET PO (22:35)
[2024-10-22] MEDS: metroNIDAZOLE 0.75% TOPICAL GEL 45 GM 1 APPLIC TOPICAL (22:37)
[2024-10-22 22:45] LABS: Troponin I 0.043 ng/mL (0.000-0.034)
[2024-10-23] VITALS (8 sets, daily range): BP systolic 145–151; BP diastolic 64–65; PULSE 54–100; RESP 16–20; TEMP 36.9–37.2; O2SAT 94–97
--- NOTE | 2024-10-23 | ECHO_ITS ---
Patient Info Name: Loy Gonzalez Age: 84 years : 1940 Gender: Male Ht: 63 in Wt: 166 lbs BSA: 1.85 m2 HR: 57 bpm BP: 151 / 65 mmHg Heart Rhythm: Sinus Rhythm Technical Quality: Fair Exam Date: 10/23/2024 11:18 AM Exam Location: Echo Lab Patient Status: Inpatient Admit Date: 10/22/2024 Staff Ordering Physician: Eulogio Russo MD (jer/annette) Director Intelligence Analysis Programs: Inna Rowe RDCS Attending Provider: Jamin Posadas MD Referring Physician: Karan HARVEY; Exam Type: CA echo doppler color flow Study Info Indications - Atrial flutter Complete two-dimensional, color flow and Doppler transthoracic echocardiogram is performed. Summary 1. Left ventricular chamber dimension is normal. 2. Left ventricular systolic function is normal, estimated at 65-70%. 3. There is mildly increased left ventricular wall thickness. 4. The left ventricular diastolic function is grade I diastolic dysfunction. 5. Right ventricular chamber dimension is mildly enlarged. 6. Right ventricular systolic function is normal. 7. Left atrial chamber dimension is mildly enlarged. 8. Right atrial chamber dimension is mildly enlarged. 9. There is mild tricuspid valve regurgitation. 10. There is mild pulmonic regurgitation. Left Ventricle Left ventricular chamber dimension is normal. Left ventricular systolic function is normal, estimated at 65-70%. There is mildly increased left ventricular wall thickness. The left ventricular diastolic function is grade I diastolic dysfunction. Right Ventricle Right ventricular chamber dimension is mildly enlarged. Right ventricular systolic function is normal. Left Atria Left atrial chamber dimension is mildly enlarged. Right Atria Right atrial chamber dimension is mildly enlarged. Atrial Septum Intact interatrial septum visualized by color flow imaging. Aortic Valve The aortic valve is probable trileaflet. There is no aortic valve stenosis. There is no aortic valve regurgitation. Pulmonic Valve The pulmonic valve is not well visualized. There is mild pulmonic regurgitation. Mitral Valve There is trace mitral valve regurgitation. Tricuspid Valve There is mild tricuspid valve regurgitation. Pericardium/Pleural The pericardium appears epicardial fat pad. There is no pericardial effusion. Inferior Vena Cava Inferior vena cava is not well visualized. Aorta The aortic root size at the sinus of Valsalva is normal. Left Ventricular Outflow Tract Name Value Normal LVOT 2D LVOT Diameter 2.1 cm LVOT Doppler LVOT Peak Gradient 2 mmHg LVOT Mean Gradient 1 mmHg LVOT VTI 20 cm LVOT VTI/AV VTI Ratio 0.7 LVOT Stroke Volume 70 ml LVOT CO 4.9 l/min LVOT CI 2.6 l/min/m2 Pulmonic Valve Name Value Normal RVOT Doppler RVOT Peak Gradient 2 mmHg PV Doppler PV Peak Gradient 3 mmHg PV Regurgitation Doppler AL Peak End Diastolic Velocity 122 cm/s Mitral Valve Name Value Normal MV Doppler MV Decel Chase 248 cm/s2 MV PHT 80 ms MV Area (PHT) 2.7 cm2 4.0-5.0 MV Diastolic Function MV E Peak Velocity 69 cm/s MV A Peak Velocity 82 cm/s MV E/A 0.8 MV Decel Time 276 ms MV Annular TDI MV E/e' (Septal) 12.4 <=8.0 MV E/e' (Lateral) 9.6 <=8.0 MV E/e' (Average) 11.0 Tricuspid Valve Name Value Normal TV Regurgitation Doppler TR Peak Velocity 282 cm/s TR Peak Gradient 32 mmHg Aortic Valve Name Value Normal AV Doppler AV Peak Velocity 126 cm/s AV Peak Gradient 6 mmHg AV Mean Gradient 3 mmHg AV VTI 27 cm AV Area (Cont Eq VTI) 2.5 cm2 >=3.0 AV Area (Cont Eq Hans) 2.0 cm2 AV Regurgitation 2D LVOT Area 3.5 cm2 Ventricles Name Value Normal LV Dimensions 2D/MM IVS Diastolic Thickness (2D) 1.1 cm 0.6-1.0 LVID Diastole (2D) 5.2 cm 4.2-5.8 LVIW Diastolic Thickness (2D) 0.9 cm 0.6-1.0 LVID Systole (2D) 3.4 cm 2.5-4.0 LVOT Diameter 2.1 cm LV Mass (2D Cubed) 188.51 g 88.00-224.00 LV Mass Index (2D Cubed) 102 g/m2 49-115 Relative Wall Thickness (2D) 0.33 LV Fractional Shortening/Ejection Fraction 2D/MM LV Fractional Shortening (2D) 36 % 25-43 LV EF (2D Teicholz) 65 % 52-72 LV Diastolic Volume (4C MOD) 115 ml LV EF (4C MOD) 62 % LV Diastolic Volume (2C MOD) 114 ml LV EF (2C MOD) 64 % LV Diastolic Volume (BP MOD) 115 ml 62-150 LV Diastolic Volume Index (BP MOD) 62 ml/m2 34-74 LV Systolic Volume (BP MOD) 42 ml 21-61 LV Systolic Volume Index (BP MOD) 23 ml/m2 11-31 LV EF (BP MOD) 64 % 52-72 LV Diastolic Length (4C) 8.2 cm LV Systolic Length (4C) 6.9 cm LV Stroke Volume (4C MOD) 72 ml Atria Name Value Normal LA Dimensions LA Volume (4C A-L) 64 ml LA Volume (BP A-L) 61 ml RA Dimensions RA Area (4C) 17.7 cm2 <=18.0 Report Signatures
[2024-10-23] MEDS: ACETAMINOPHEN 325 MG TABLET 650 MG PO (01:37)
[2024-10-23 05:28] LABS: Basophils Percent Auto 0.5 % (0.2-1.2); Eosinophils Absolute Auto 0.1 K/mm3 (0-0.3); Hematocrit 31.3 % (42.0-52.0); Hemoglobin 10.7 g/dL (14.0-18.0); Immature Granulocyte Absolute 0.02 K/mm3 (0.00-0.031); Immature Granulocyte Percent A 0.3 % (0-0.5); Lymphocytes Absolute Auto 1.37 K/mm3 (0.9-3.2); Lymphocytes Percent Auto 22.5 % (18.3-44.2); Mean Corpuscular HGB Conc 34.2 g/dl (32-36); Mean Corpuscular Hemoglobin 30.9 pg (26-34); Mean Corpuscular Volume 90.5 fl (80-100); Mean Platelet Volume 8.4 fl (7.4-10.4); Monocytes Absolute Auto 0.5 K/mm3 (0.1-0.6); Monocytes Percent Auto 8.5 % (2.6-8.5); Neutrophils Percent Auto 66.2 % (45.5-73.1); Platelet Count Result 226 k/mm3 (150-375); Red Blood Count 3.46 M/mm3 (4.6-6.20); Red Cell Distribution Width 13.2 % (11.5-14.5); White Blood Count 6.1 K/mm3 (4.5-10.0)
[2024-10-23 05:36] LABS: Anion Gap 9 mmol/L (4-12); Blood Urea Nitrogen 13 mg/dL (9-20); Calcium 8.1 mg/dL (8.4-10.2); Carbon Dioxide 23 mmol/L (22-30); Chloride 107 mmol/L (98-107); Estimated CRCL calculation 48 ml/min; Estimated Glomerular Filt Rate > 60; Glucose 101 mg/dL (65-110); Potassium 3.2 mmol/L (3.4-5.0); Sodium 139 mmol/L (137-145)
[2024-10-23] MEDS: LEVOTHYROXINE SODIUM 75 MCG TABLET PO (06:02)
[2024-10-23 08:46] LABS: Glucose Point of Care 106 mg/dl (65-105)
--- NOTE | 2024-10-23 10:07 | PM.CNCAR ---
Assessment and Plan Assessment and plan (1) Atrial flutter: Qualifiers: Atrial flutter type: unspecified Qualified Code(s): I48.92 - Unspecified atrial flutter Code(s): I48.92 - Unspecified atrial flutter Status: Acute Plan 1. Paroxysmal atrial flutter. New diagnosis for the patient 2. Mild non-obstructive CAD per [facility] 05/2021 3. Hypertension 4. Hypothyroidism 6. Diabetes mellitus PLAN: -Obtain TTE since last echo was in 2020. -TSH level normal. -Continue Metoprolol 25mg once daily. Will not uptitrate as heart rates in the 50s-60s this morning. -[id number] of 4. Anticoagulation indicated for stroke risk reduction. Started on Eliquis 5mg BID, continue. -Recommend outpatient sleep study. If echocardiogram unremarkable, patient can be discharged later today. Patient would like to follow up with Dr. Thomason in the office, will arrange follow up. Recommendations and plan discussed with Hospitalist. History of Present Illness History of Present Illness Consult date/time: 10/23/24 10:07 Requesting physician: Laura Waldron PA-C Consult reason: Other (Atrial flutter) Reason For Visit: A Flutter/ Dizziness Narrative: We are consulted for atrial flutter. This is an 84 year old male with non-obstructive CAD per [facility] 05/2021, hypertension who presented with dizziness, elevated heart rate that began yesterday morning. Had a twinge of chest pain which was brief. Presented to [place] ED for further evaluation. EKG showed atrial flutter with RVR. Given IV Metoprolol. Spontaneously converted to sinus rhythm and has maintained sinus rhythm since then. Patient is on Metoprolol at home, did miss a few doses over past few days. He is currently feeling well has no complaints. Does endorse a headache overnight. Initial troponin negative x 2, followed by 0.042. TSH level normal. Review of Systems Review of Systems: All systems reviewed & are unremarkable except as noted in HPI and below (HPI) [facility] Past Medical History Medical History Retinal detachment s/p cryosurgery, 2002 CAD (coronary artery disease) Hernia BMI 29.0-29.9,adult Neuropathy COVID-19 Essential (primary) hypertension Gastro-esophageal reflux disease without esophagitis Other and unspecified hyperlipidemia Hypothyroidism Type 2 diabetes mellitus without complication, with no history of insulin use Vitamin D deficiency Surgical History Surgical History History of cholecystectomy History of appendectomy History of colon resection Family History Family History Mother Family history of gastrointestinal disorder, Onset Age: 85 Family history of congestive heart failure, Onset Age: 85 Patient's mother is Family history of heart disease in male family member before age 55 Family history of congenital heart disease, Onset Age: 85 Father Family history of Alzheimer's disease, Onset Age: 89 Patient's father is Family history of renal failure Sibling Family history of Alzheimer's disease Other Hypertension Social History Social History Smoking packs per day: 0.5 Smoking cigarettes per day: 10.0 Years smoked: 4 Smoking pack-years: 2.00 Smoking status: Former smoker Tobacco type: cigarettes Second hand tobacco smoke exposure: No Additional smoking assessment comments: quit smoking in 1964 Alcohol intake: never Substance use: never Substance use type: does not use Do You Feel Safe in your Home?: Yes Lack of Transportation: No Lack of Food: Never True Current Housing: I Have Housing Concerned About Future Housing: No Difficulty Paying Gas/Electric Bills: No Difficulty Paying for Meds: No Currently Unemployed: No Education: Bachelor's Degree Difficulty w/ Childcare or Family Care: No Living arrangements: with family Occupation/Education: retired 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[employer], [employer] Gender identity (if verbalized by the patient): Male Spiritual care concerns: No Meds Home Medications and Allergies Home Medications ?Medication ?Instructions ?Recorded ?Confirmed ?Type cholecalciferol (vitamin D3) 50 2,000 unit PO DAILY #90 tabs 06/28/19 10/22/24 Rx mcg (2,000 unit) tablet metronidazole 0.75 % topical gel 1 applic topical BID 01/03/20 10/22/24 History multivitamin 1 cap PO 1200 04/29/20 10/22/24 History mecobalamin (vitamin B12) 1,000 1,000 mcg PO 1200 11/03/20 10/22/24 History mcg disintegrating tablet,sublingual loratadine 10 mg capsule 10 mg PO DAILY 06/08/21 10/22/24 History aspirin 81 mg tablet,delayed 81 mg PO 1200 10/31/21 10/22/24 History release diclofenac sodium 1 % topical gel 4 g topical QID PRN knee pain #100 09/27/23 10/22/24 Rx grams amlodipine 5 mg tablet See Rx Instructions .Route 09/12/24 10/22/24 Rx .COMPLEX #90 tabs lisinopril 40 mg tablet See Rx Instructions .Route 09/12/24 10/22/24 Rx .COMPLEX #90 tabs levothyroxine 75 mcg tablet 75 mcg PO DAILY #90 tabs 09/19/24 10/22/24 Rx (Euthyrox) empagliflozin 5 mg-metformin 1,000 See Rx Instructions .Route 09/26/24 10/22/24 Rx mg tablet (Synjardy) .COMPLEX #180 tabs ferrous sulfate 325 mg (65 mg See Rx Instructions .Route 10/08/24 10/22/24 Rx iron) tablet .COMPLEX #90 tabs omeprazole 40 mg capsule,delayed See Rx Instructions .Route 10/08/24 10/22/24 Rx release .COMPLEX #90 caps metoprolol succinate 25 mg 25 mg PO QPM 10/22/24 10/22/24 History tablet,extended release 24 hr Allergies Allergy/AdvReac Type Severity Reaction Status Date / Time No Known Allergies Allergy Mild Verified 10/22/24 18:34 Vital Signs Vital Signs - 24 hr 10/22/24 11:15 10/22/24 11:15 10/22/24 11:23 Temperature Pulse Rate 130 H 135 H Respiratory Rate 14 11 L 11 L Blood Pressure 111/87 111/87 Pulse Oximetry 100 100 98 Oxygen Delivery 10/22/24 11:25 10/22/24 11:30 10/22/24 11:45 Temperature Pulse Rate 136 H 135 H Respiratory Rate 18 12 Blood Pressure 116/86 113/82 Pulse Oximetry 100 96 96 Oxygen Delivery Room Air 10/22/24 11:55 10/22/24 12:00 10/22/24 12:28 Temperature Pulse Rate 134 H 133 H 71 Respiratory Rate 11 L 16 Blood Pressure 106/84 120/74 Pulse Oximetry 98 100 Oxygen Delivery 10/22/24 12:30 10/22/24 12:45 10/22/24 13:01 Temperature Pulse Rate 68 65 68 Respiratory Rate 14 16 13 Blood Pressure 118/67 133/72 129/71 Pulse Oximetry 100 100 100 Oxygen Delivery 10/22/24 14:14 10/22/24 14:16 10/22/24 14:31 Temperature Pulse Rate 61 62 63 Respiratory Rate 15 13 16 Blood Pressure 151/77 H 142/71 H 147/76 H Pulse Oximetry 100 99 98 Oxygen Delivery 10/22/24 14:46 10/22/24 15:00 10/22/24 15:16 Temperature Pulse Rate 57 L 60 61 Respiratory Rate 11 L 17 17 Blood Pressure 135/73 144/75 H 144/69 H Pulse Oximetry 99 98 100 Oxygen Delivery 10/22/24 15:31 10/22/24 15:46 10/22/24 16:01 Temperature Pulse Rate 63 69 65 Respiratory Rate 15 18 21 H Blood Pressure 162/79 H 160/81 H 153/77 H Pulse Oximetry 100 100 100 Oxygen Delivery 10/22/24 16:16 10/22/24 16:31 10/22/24 16:46 Temperature Pulse Rate 64 73 65 Respiratory Rate 12 20 13 Blood Pressure 161/75 H 154/84 H 164/81 H Pulse Oximetry 99 99 100 Oxygen Delivery 10/22/24 17:20 10/22/24 17:31 10/22/24 17:46 Temperature Pulse Rate 70 76 63 Respiratory Rate 16 17 15 Blood Pressure 160/82 H 156/73 H 159/74 H Pulse Oximetry 97 100 Oxygen Delivery 10/22/24 18:01 10/22/24 18:28 10/22/24 20:00 Temperature 35.9 C L Pulse Rate 63 66 Respiratory Rate 17 18 Blood Pressure 157/68 H 156/63 H Pulse Oximetry 100 100 Oxygen Delivery Room Air 10/22/24 20:00 10/22/24 20:44 10/23/24 00:00 Temperature 36.4 C Pulse Rate 60 56 L 56 L Respiratory Rate 16 Blood Pressure 152/64 H Pulse Oximetry 98 Oxygen Delivery 10/23/24 01:37 10/23/24 04:00 10/23/24 06:00 Temperature 36.9 C Pulse Rate 55 L 68 55 L Respiratory Rate 16 Blood Pressure 145/64 H Pulse Oximetry 96 Oxygen Delivery 10/23/24 08:30 Temperature 37.2 C Pulse Rate 57 L Respiratory Rate 20 Blood Pressure 151/65 H Pulse Oximetry 97 Oxygen Delivery Exam Const: General: comfortable and no acute distress HENMT: Mouth: Yes moist mucous membranes Eyes: General: appearance normal, both eyes and all related structures Sclera: sclerae normal Resp: Effort & Inspection: normal respiratory effort Cardio: Rate: regular rate Rhythm: regular rhythm Heart sounds: no murmurs Skin: General skin exam: normal color Neuro: Speech: normal speech Psych: Mental Status: mental status grossly normal Affect: normal affect Results Labs and Meds 10/23/24 04:51 10/23/24 04:51 Lab results: Cardiac Enzymes 10/22/24 10/22/24 10/22/24 Range/Units 11:23 14:12 17:21 AST 28 (17-59) U/L Troponin I < 0.012 0.021 D 0.042 H* D (0.000-0.034) ng/mL 10/22/24 Range/Units 22:07 AST (17-59) U/L Troponin I 0.043 H* (0.000-0.034) ng/mL Coagulation 10/22/24 Range/Units 11:23 PT 12.7 (11.1-14.7) Seconds APTT 50.2 H (22.3-36.8) Seconds CBC 10/22/24 10/23/24 Range/Units 11:23 04:51 WBC 9.3 6.1 (4.5-10.0) K/mm3 RBC 4.43 L 3.46 L (4.6-6.20) M/mm3 Hgb 13.7 L 10.7 L D (14.0-18.0) g/dL Hct 39.5 L 31.3 L (42.0-52.0) % Plt Count 306 226 (150-375) k/mm3 Lymph # (Auto) 1.61 1.37 (0.9-3.2) K/mm3 [place] # (Auto) 0.7 H 0.5 (0.1-0.6) K/mm3 Eos # (Auto) 0.1 0.1 (0-0.3) K/mm3 Baso # (Auto) 0.0 0.0 (0.0-0.1) K/mm3 Comprehensive Metabolic Panel 10/22/24 10/23/24 Range/Units 11:23 04:51 Sodium 139 139 (137-145) mmol/L Potassium 3.6 3.2 L (3.4-5.0) mmol/L Chloride 106 107 (98-107) mmol/L Carbon Dioxide 23 23 (22-30) mmol/L BUN 15 13 (9-20) mg/dL Creatinine 1.05 0.89 (0.7-1.3) mg/dL Glucose 185 H 101 (65-110) mg/dL Calcium 9.3 8.1 L (8.4-10.2) mg/dL AST 28 (17-59) U/L ALT 19 (6-50) U/L Alkaline Phosphatase 98 (38-126) U/L Total Protein 7.0 (6.3-8.2) g/dL Albumin 4.2 (3.5-5.1) g/dL Intake and Output 10/22/24 10/23/24 10/23/24 23:59 07:59 15:59 Intake Total 300 Balance 300 Intake: Oral 300 Other: # Unmeasured Voids 2
[2024-10-23] MEDS: POTASSIUM CHLORIDE 20 MEQ PACKET (FOR LIQUID) 40 MEQ PO (10:14)
[2024-10-23] MEDS: amLODIPine BESYLATE 5 MG TABLET PO (10:15)
[2024-10-23] MEDS: APIXABAN 5 MG TABLET PO (10:16)
[2024-10-23] MEDS: CHOLECALCIFEROL 1,000 UNITS TABLET 2000 UNITS PO (10:16)
[2024-10-23] MEDS: FERROUS SULFATE 325 MG TABLET DR BY MOUTH (10:16)
[2024-10-23] MEDS: PANTOPRAZOLE 40 MG TABLET PO (10:17)
[2024-10-23] MEDS: lisinopriL 20 MG TABLET PO (10:17)
[2024-10-23] MEDS: LORATADINE 10 MG TABLET PO (10:18)
[2024-10-23 11:31] LABS: Glucose Point of Care 171 mg/dl (65-105)
[2024-10-23] MEDS: CYANOCOBALAMIN 1,000 MCG TABLET 1000 MCG PO (11:53)
[2024-10-23] MEDS: MULTIVITAMINS THERAPEUTIC TAB (*BKC) 1 TABLET PO (11:53)
[2024-10-23] MEDS: ASPIRIN 81 MG ENTERIC TABLET PO (11:53)
--- NOTE | 2024-10-23 13:57 | P.DS_ITS ---
DS: Admitting Diagnosis Discharge Date 10/23/24 Admitting Diagnosis Atrial fibrilation DS: Discharge Diagnosis Discharge Diagnosis (1) Atrial flutter: Qualifiers: Atrial flutter type: unspecified Qualified Code(s): I48.92 - Unspecified atrial flutter Code(s): I48.92 - Unspecified atrial flutter Status: Acute Assessment and Plan: - EKG, initial: Atrial flutter/tachycardia with RVR, rate 135, incomplete LBBB, possible anterior PA probably old, inferior infarct age indeterminate, ST-T-wave abnormality in high lateral leads consider ischemia. Will continue metoprolol 25 mg ER daily. - CHADSVasc: 5, started on Eliquis 5 mg BID - check TSH - 3.4 Left ventricular systolic function is normal, estimated at 65-70% - cardiology team on board - telemetry monitoring (2) Chest pain: Qualifiers: Chest pain type: unspecified Qualified Code(s): R07.9 - Chest pain, unspecified Code(s): R07.9 - Chest pain, unspecified Status: Acute Assessment and Plan: - initial EKG showed atrial flutter, rate 135. Given metoprolol IV x1, conversion to NSR with rate in the 60s. No recurrent chest pain since resolution of tachycardia. Remains vaguely lightheaded. - CXR: Mild linear discoid atelectasis/scarring in the bilateral lower lung zones. No other acute cardiopulmonary disease. - chest CTA: No pulmonary embolism or other acute cardiopulmonary disease. - Troponin: < 0.012m -> 0.021 -> 0.042 -> 0.043, flat. - BNP 591 echo, previous (2020): Normal systolic function, estimated EF 65-70%, grade 1 diastolic dysfunction. See report for full details. - ASA 324 given -> 81 daily - SL nitro PRN - telemetry monitoring (3) Type 2 diabetes mellitus without complication, with no history of insulin use: Code(s): E11.9 - Type 2 diabetes mellitus without complications Status: Chronic Assessment and Plan: - hypoglycemia protocol - POC blood glucose ACHS - home medication - correct regimen ordered - low dose TIDWM, based off TDD - A1C 6.9% on 07/16/2024 (4) Essential (primary) hypertension: Code(s): I10 - Essential (primary) hypertension Status: Chronic Assessment and Plan: - chronic, currently 160/82 - continue home medications: Metoprolol ER 25 daily, amlodipine 5 mg daily, lisinopril 40 mg daily - monitor Plan -Continue Metoprolol 25mg once daily. Will not uptitrate as heart rates in the 50s-60s this morning. - Started on Eliquis 5mg BID, continue. -Recommend outpatient sleep study. follow with cardiology as outpatient follow with PCP in one week Diet: Heart healthy GI Prophylaxis: Not currently indicated DVT Prophylaxis: Eliquis Lines: Peripheral Code Status: Full code DS: Summary Hospital Course Reason for hospitalization: new Afib Hospital Course: 84 y/o M with PMH of coronary artery disease, hypothyroidism, hyperlipidemia, diabetes, and hypertension presents here with chest pain, shortness of breath, and palpitations. The patient presents here from home for further evaluation of midsternal chest pain, shortness of breath, and palpitations. He reports onset morning at 08:30 a.m. which he noted later after he woke up. He describes the chest pain as dull, nonradiating, intermittent, 30 mins - 1 hr in duration. No aggravating or alleviating factors. Did not trial any prescription or OTC medications for his symptoms. Initial VS at presentation: HR 130, RR 14, 111/87, and 100% on RA. ED workup showed: No leukocytosis, hemoglobin 13.7 (previously 11.9 in June of 2024), D-dimer elevated (CTA negative for acute findings or PE), no significant electrolyte derangements, initial troponin negative, BNP 5 9 1, and viral PCR negative. CXR showed mild linear discoid atelectasis/scarring in the bilateral lower lung zones, no other acute cardiopulmonary disease. Chest CTA showed no PE or acute cardiopulmonary findings. found to have new Afib with RVR. heart rate under control with metoprolol. Eliquis started for [id number] of 4.cardiology team was consulted. ECho negative for significant abnormality. will discharge patinet. Status at Discharge Cognitive/behavioral status at discharge: improving Time Spent with Patient Time attestation: Total time spent providing and/or coordinating discharge services: Time spent: Greater than 30 minutes Exam Const: General: comfortable and no acute distress Other: , male, nontoxic appearance HENMT: Face/Nose/Sinus: Normal nares present Mouth: Yes moist mucous membranes Eyes: General: appearance normal, both eyes and all related structures Sclera: sclerae normal Pupils: Equal, round and reactive pupils present EOM: EOMs intact bilaterally Resp: Effort & Inspection: normal respiratory effort Auscultation: clear to auscultation bilaterally Cardio: Rate: regular rate Rhythm: regular rhythm Other: S1-S2 present without murmur, rub, ectopy Skin: General skin exam: normal color and no rashes or lesions noted Wounds: no wounds Neuro: Cranial nerves: Yes Equal, round and reactive pupils present Speech: normal speech Motor exam (neuro): 5/5 motor strength present throughout Sensory Exam: normal sensation Other: A&O x4 Extrem: General: normal to inspection Psych: Mental Status: mental status grossly normal Affect: normal affect Other: Good insight and judgment, pleasant DS: Data Data Completed and Pending Labs on day of discharge: Labs from last 24 hours 10/23/24 10/23/24 10/23/24 11:29 08:42 04:51 WBC 6.1 RBC 3.46 L Hgb 10.7 L D Hct 31.3 L MCV 90.5 MCH 30.9 MCHC 34.2 RDW 13.2 Plt Count 226 MPV 8.4 Immature Gran % (Auto) 0.3 Neut % (Auto) 66.2 Lymph % (Auto) 22.5 [place] % (Auto) 8.5 Eos % (Auto) 2.0 Baso % (Auto) 0.5 Lymph # (Auto) 1.37 [place] # (Auto) 0.5 Eos # (Auto) 0.1 Baso # (Auto) 0.0 Abs Immat Gran (auto) 0.02 Absolute Neuts (auto) 4.0 Absolute Nucleated RBC 0.000 Nucleated RBC % 0.0 Sodium 139 Potassium 3.2 L Chloride 107 Carbon Dioxide 23 Anion Gap 9 BUN 13 Creatinine 0.89 Estim Creat Clear Calc 48 Estimated GFR > 60 Glucose 101 POC Capillary Glucose 171 H 106 H Calcium 8.1 L Troponin I TSH (Reflex) 10/22/24 10/22/24 10/22/24 22:07 20:38 17:21 WBC RBC Hgb Hct MCV MCH MCHC RDW Plt Count MPV Immature Gran % (Auto) Neut % (Auto) Lymph % (Auto) [place] % (Auto) Eos % (Auto) Baso % (Auto) Lymph # (Auto) [place] # (Auto) Eos # (Auto) Baso # (Auto) Abs Immat Gran (auto) Absolute Neuts (auto) Absolute Nucleated RBC Nucleated RBC % Sodium Potassium Chloride Carbon Dioxide Anion Gap BUN Creatinine Estim Creat Clear Calc Estimated GFR Glucose POC Capillary Glucose 182 H Calcium Troponin I 0.043 H* 0.042 H* D TSH (Reflex) 10/22/24 10/22/24 14:12 11:23 WBC RBC Hgb Hct MCV MCH MCHC RDW Plt Count MPV Immature Gran % (Auto) Neut % (Auto) Lymph % (Auto) [place] % (Auto) Eos % (Auto) Baso % (Auto) Lymph # (Auto) [place] # (Auto) Eos # (Auto) Baso # (Auto) Abs Immat Gran (auto) Absolute Neuts (auto) Absolute Nucleated RBC Nucleated RBC % Sodium Potassium Chloride Carbon Dioxide Anion Gap BUN Creatinine Estim Creat Clear Calc Estimated GFR Glucose POC Capillary Glucose Calcium Troponin I 0.021 D TSH (Reflex) 3.400 Imaging My impression: ECHO LVEF 65-70% Radiologist's impression: 1. Left ventricular chamber dimension is normal. 2. Left ventricular systolic function is normal, estimated at 65-70%. 3. There is mildly increased left ventricular wall thickness. 4. The left ventricular diastolic function is grade I diastolic dysfunction. 5. Right ventricular chamber dimension is mildly enlarged. 6. Right ventricular systolic function is normal. 7. Left atrial chamber dimension is mildly enlarged. 8. Right atrial chamber dimension is mildly enlarged. 9. There is mild tricuspid valve regurgitation. 10. There is mild pulmonic regurgitation. Discharge Plan Discharge Attending physician on discharge: Jamin Posadas Consulting providers: Eulogio Russo Discharging Clinician: Jamin Posadas Patient Disposition: Home, Self-Care Activity: as tolerated Diet: heart healthy Patient Instructions: Antibiotic Form, Apixaban (By mouth) Patient Language: Ecuadorean Stand Alone Forms: General Discharge Information Follow-up/Referrals: Dulce Webb MD [Physician] - Discharge Medications: New Eliquis 5 mg Tablet 5 mg PO Q12HR Qty: 60 0RF Continued metronidazole 0.75 % gel 1 applic TOPICAL BID Patient Comments: on nose Rx Instructions: apply to nose cholecalciferol (vitamin D3) 2,000 unit tablet 2,000 unit PO DAILY Qty: 90 0RF multivitamin Capsule 1 cap PO 1200 loratadine 10 mg Capsule 10 mg PO DAILY metoprolol succinate 25 mg tablet extended release 24 hr 25 mg PO QPM aspirin 81 mg tablet,delayed release (DR/EC) 81 mg PO 1200 mecobalamin (vitamin B12) 1,000 mcg tablet,disintegrating 1,000 mcg PO 1200 diclofenac sodium 1 % gel 4 g TOPICAL QID PRN (Reason: knee pain) Qty: 100 2RF amlodipine 5 mg tablet See Rx Instructions .ROUTE .COMPLEX Qty: 90 0RF Dose Instruction: Take 1 tablet by mouth once daily Rx Instructions: Take 1 tablet by mouth once daily lisinopril 40 mg tablet See Rx Instructions .ROUTE .COMPLEX Qty: 90 0RF Dose Instruction: Take 1 tablet by mouth once daily Rx Instructions: Take 1 tablet by mouth once daily levothyroxine [Euthyrox] 75 mcg tablet 75 mcg PO DAILY Qty: 90 1RF Synjardy 5-1,000 mg tablet See Rx Instructions .ROUTE .COMPLEX Qty: 180 0RF Dose Instruction: Take 1 tablet by mouth twice daily Rx Instructions: Take 1 tablet by mouth twice daily omeprazole 40 mg capsule,delayed release(DR/EC) See Rx Instructions .ROUTE .COMPLEX Qty: 90 0RF Dose Instruction: Take 1 capsule by mouth once daily Rx Instructions: Take 1 capsule by mouth once daily ferrous sulfate 325 mg (65 mg iron) tablet See Rx Instructions .ROUTE .COMPLEX Qty: 90 0RF Dose Instruction: Take 1 tablet by mouth once daily Rx Instructions: Take 1 tablet by mouth once daily Date of admission: 10/22/24 16:36 Primary Care Provider: Edwin Tsang Admitting Provider: Vasquez Lindsey Attending physician on admission: Jamin Posadas Condition: Stable Health Concerns: check your blood pressure and heart rate regularly and report to PCP. follow with cardiology as outpatient follow with PCP in one week follow with sleep study as outpatient
== END 2024-10-23 15:30 | disposition home or self-care (01) ==
LOC: ANHED 16:59 → ANH2MED 17:04
PROVIDERS: Emergency Medicine; Student in an Organized Health Care Education/Training Program; Admitting Provider Internal Medicine; Emergency Provider Physician Assistant; PCP Family Medicine; Visit Provider Internal Medicine
DX: I48.92 Unspecified atrial flutter (principal); R07.9 Chest pain, unspecified; E11.40 Type 2 diabetes mellitus with diabetic neuropathy, unspecified; I25.10 Atherosclerotic heart disease of native coronary artery without angina pectoris; I10 Essential (primary) hypertension; E78.49 Other hyperlipidemia; E03.9 Hypothyroidism, unspecified; E55.9 Vitamin D deficiency, unspecified; K21.9 Gastro-esophageal reflux disease without esophagitis; Z20.822 Contact with and (suspected) exposure to COVID-19; Z86.16 Personal history of COVID-19; Z87.891 Personal history of nicotine dependence; Z79.82 Long term (current) use of aspirin; Z79.899 Other long term (current) drug therapy; Z90.49 Acquired absence of other specified parts of digestive tract
CPT/HCPCS: 36415; 71046; 71275; 80048; 80053; 82948; 83690; 83735; 83880; 84443; 84484; 85025; 85380; 85610; 85730; 87637; 93005; 93306; 96361; 96365; 96375; 99285; A9270; G0378; J3475; J7030; Q9967

== ENCOUNTER 2024-12-26 08:02 | Outpatient (CLI) | payer MEDICARE, BC, SELFPAY ==
--- OUTSIDE RECORDS SUMMARY | 2024-12-26 08:09 | XMS_ITS | Clinical Summary ---
Author Organization [facility] Address [address] 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 This disclosure is being madepursuant to the Care Everywhere program and may not contain all information available regarding this patient. Last updated 18.[facility] [employer] Social History Tobacco Use Types Packs/Day Years Used Date Smoking Tobacco: Never Assessed Sex and Gender Information Value Date Recorded Sex Assigned at Not on file Legal Sex Male 2:40 PM CDT Gender Identity Not on file Sexual Orientation [...] - 1-dose 75+ series) 2014 COVID-19 VACCINE (1 - 2023-2 5 season) 2024 DEPRESSION SCREENING 07/24/2024 INFLUENZA VACCINE (Season Ended) 2025 HEPATITIS B VACCINE Aged Out No longe [...] on patient's age to complete this topic Insurance MEDICARE [facility] Address[address] [place] [address]
--- OUTSIDE RECORDS SUMMARY | 2024-12-26 08:09 | XMS_ITS | Data Portability ---
Author Organization [place] [facility] [employer], Main Office Address [address] [place] [address] Care Team Providers Care Customer Experience Associate Name Role Phone JANKI GRIGGS Primary Care Provider [phone] JANKI GRIGGS Referring Provider [phone] ERIK BETANCOURT Primary Care Provider [phone] ERIK BETANCOURT Referring Provider [phone] Assessment Encounter Date Assessment Date Assessment LastModified [...] in 2019 which showed medial compartment is [id number] in the left knee on a PA [...] more than half the time spent in [id number] care. I will see him back on [...] procedure, administere d by provider 2022 023 [email or web address] In-Office Order, Internal Use Only DO Not Attach Compendium DO Not Attach Compendium, Do Not Delete/merge, [id number] 3 10:53:51 injection/a spiration joint/bursa (PROC) - in office procedure, administere d by provider 2022 023 [email or web address] In-Office Order, Internal Use Only DO Not Attach Compendium DO Not Attach Compendium, Do Not Delete/merge, [id number] 3 12:33:59 Surgeries None recorded. Imaging XR, knee 2022 023 [email or web address] [facility] [place], [facility] [facility] [address], [place], [address], 3 13:29:01 Medication Orders Kenalog 10 mg/mL suspension for injection [address] [facility], [address] [place] [address], [address], 3 10:08:54 ropivacaine (PF) 5 mg/mL (0.5 %) injection solution [address] [facility], [address] [place] [address], [address], 3 10:08:54 Kenalog 10 mg/mL suspension for injection [address] [facility], [address] [place] [address], [address], 3 12:38:25 ropivacaine (PF) 5 mg/mL (0.5 %) injection solution [address] [facility], [address] [place] [address], [address], 3 12:38:25 Patient TargetsNo targets recorded. Patient InstructionsNo instructions recorded. Reason for Referral None Reported. Results Created Date Observation Date Name Description Value Unit Range Abnormal Flag Note LastModifiedBy Organization Detail LastModifiedTime 03/31/20 21 XR, knee No observ ation record ed. [id number] [facility] [place] [address], [place], [address], 09/21/2022 21:14:09 04/21/20 21 XR, knee, 3 view No observ ation record ed. [id number] [facility] [place] [address], [place], [address], 09/21/2022 21:14:09 10/23/19 22 XR, knee No observ ation record ed. [id number] [facility] [place] [address], [place], [address], 09/21/2022 21:14:09 06/05/20 23 XR, knee No observ ation record ed. [email or web address] [facility] [place] [address], [place], [address], 06/05/2023 13:29:00 Result Notes None recorded. Problems Name Problem SNOMED Code Status Onset Date Resolution Date Notes Provider Name and Address Organization Details Recorded Time Osteoarthr itis 921898156 Active Not Available [facility] 3 21:12:20 Pain of left knee joint 0319844571415 07 Active 2022 BONNY Linton, [employer] [facility] [employer] 3 12:29:25 Osteoarthr itis of left knee joint 2119161804303 09 Active 2022 BONNY Linton, [employer] 3 10:52:12 Problem Notes None recorded. Procedures Surgical History Date Name Laterality Status Provider Name and Address Organization Details Recorded Time procedure on gallbladder completed Not Available [facility] 09/21/2022 21:11:21 resection of diverticulum completed Not Available [facility] 09/21/2022 21:11:21 Unlisted px cardiac surgery completed Not Available [facility] 09/21/2022 21:11:21 Appendectomy completed Not Available [facility] 09/21/2022 21:11:21 Colon Resection completed [facility] Available [facility] 09/21/2022 21:11:21 Retina completed Not Available [facility] 07/2022 21:11:21 Hernia Repair completed Not Available [facility] 09/21/2022 21:11:21 Imaging Results None recorded. Procedure Notes None recorded. Medical Equipment None [...] suspension for injection in office [address] [facility]: 0003- 0494- 20 Not Available Not Available [...] administe red by the provider 10/[address] [facility]: 0409- 4276- 17 Not Available Not Available [...] Available Not Available Vitals Date Recorded Body height Provider Name an d Address Organization Details Last Updated DateTime 10/13/2022 167.64 cm BONNY Linton [facility] [employer] 10/13/2022 12:28:52 Date Recorded Body mass index (BMI) Body height Body weight Provider Name and Address Organization Details Last Updated DateTime 11/04/2021 40.4 kg/m2 167.64 cm 634446.09 g Not Available [facility] 09/21/2022 21:11:27 Date Recorded Body height Provider Name an d Address Organization Details Last Updated DateTime 05/24/2023 167.64 cm Modesta Jose Mina [facility] [employer] 05/24/2023 10:51:37 Social History None recorded. Functional Status Question Answer Note LastModified by Organizat ion Details LastModified Time What is your level of alcohol consumption? None [id number] Information not available 09/21/2022 Mental Status None recorded. Family History Relationship Description Onset Age of this Age Resolved Age Notes LastModified by Organization Details LastModified Time Mother Heart disease [id number] Not available 09/21/2022 21:11:22 Father Hypertensive disorder [id number] Not available 09/21/2022 21:11:22 Son Blood coagulation disorder [id number] Not available 09/21/2022 21:11:22 Medical History Condition Response SKIN PROBLEMS Y ARTHRITIS Y DIABETES, TYPE Y Past Encounters Encounter ID Performer Location Encounter Start Date Encounter Closed Date Diagnosis/Indication Diagnosis SNOMED-CT Code Diagnosis ICD10 Code Diagnosis Note [id number] Jorge Malin MD [facility] [place] [address] [facility] [address] [place] [id number] 03/31/2021 00:00:00 03/31/2021 16:17:42 [id number] Jorge Malin MD [facility] [place] [address] [facility] [address] [place] [id number] 04/21/2021 00:00:00 04/21/2021 16:00:50 [id number] Jorge Malin MD [facility] [place] [address] [facility] [address] [place] [id number] 10/22/2021 00:00:00 10/22/2021 12:12:59 [id number] MD SHARATH [facility] [address] [address] 11/04/2021 00:00:00 11/04/2021 11:26:25 [id number] Jorge Malin MD [facility] [address] [address] 10/13/2022 12:05:32 10/13/2022 14:19:59 Pain of left knee joint 7338487439 02093 M25.300 [id number] Jorge Malin MD [facility] [place] [address] [facility] [place] [id number] 05/24/2023 10:43:51 05/24/2023 12:13:17 Osteoarthritis of left knee joint 5081719216 17603 M17.12 Health Concerns Section Related Observation LastModified by Organization Detai ls LastModified Time None Recorded Concern Status LastModified by Organization Details LastModified Time None Recorded Advance Directives Directive None Recorded Payers Encounter Date Sequence Insurance Name Policy Number Policy Herrera Covered Member ID Herrera Member ID Guarantor Name 10/13/2022 1 [place] Loy Gonzalez [id number] Loy Gonzalez 10/13/2022 2 [place] 106 Loy Gonzalez [id number] Loy Gonzalez 05/24/2023 1 [place] L[place] Gonzalez [id number] Loy Gonzalez 05/24/2023 2 [place] 106 Loy Gonazlez [id number] Loy Gonzalez
--- OUTSIDE RECORDS SUMMARY | 2024-12-26 08:09 | XMS_ITS | Referral Summary ---
Author Organization [facility] [address] [place] [address] Care Team Providers Care Electronics Design Engineer Name Role Phone Edwin Tsang MD Primary Care Provider [phone] Encounters Date Type Department Care Team Description 11/21/2024 11:00 AM CDT Office Visit [facility] Cardiology [address] [place] [address] [address] [place] [address] Tamika Salas NP Atrial flutter, unspecified type (HCC) (Primary Dx); Encounter for anticoagulation discussion and counseling; Hospital discharge follow-up; Nonobstructive atherosclerosis of coronary artery; Sleep apnea, unspecified type 10/29/2024 Orders Only [place] [address] [address] [place] [address] Eulogio Russo MD 10/23/2024 Orders Only [facility] Health Information Management [address] [place] [address] Eulogio Russo MD 10/22/2024 Telephone [facility] Cardiology [address] [place] [address] [address] [place] [address] Eulogio Russo MD from Last 3 Months Allergies No known active allergies Medications Euthyrox 75 mcg tablet Take 1 tablet (75 mcg total) by mouth daily 04/13/20 20 Active amLODIPine (NORVASC) 5 mg tablet Take 1 tablet (5 mg total) by mouth daily 03/30/20 20 Active lisinopriL (PRINIVIL,ZESTRIL) 40 mg tablet Take 1 tablet (40 mg total) by mouth daily 03/31/20 20 Active omeprazole (PriLOSEC) 40 mg capsule Take 1 capsule (40 mg total) by mouth daily 02/21/20 20 Active metFORMIN XR (GLUCOPHAGE XR) 500 mg 24 hr tablet Take 1 tablet (500 mg total) by mouth 2 (two) times a day 04/13/20 20 Active loratadine (CLARITIN) 10 mg tablet loratadine 10 mg tablet Active tacrolimus (PROTOPIC) 0.1 % ointment RUB IN WELL TWICE DAILY TOPICALLY TO RED AREA(S) IN GROIN 03/17/20 Active metroNIDAZOLE (METROGEL) 0.75 % gel APPLY TOPICALLY TO FACE DAILY 03/18/20 20 Active cholecalciferol (VITAMIN D-3) 2000 unit capsule 1 capsule (2,000 Units total) Active cyanocobalamin (Vitamin B-12) 1,000 mcg tabletIndications:P revention of Vitamin B12 Deficiency Take 1 tablet (1,000 mcg total) by mouth daily Active multivitamin capsule Take 1 capsule by mouth daily Active aspirin 81 mg enteric coated tablet Take 1 tablet (81 mg total) by mouth daily Active empagliflozin-metfo rmin 5-1,000 mg tablet Take 1 tablet by mouth 2 (two) times a day 09/26/19 24 Active FeroSuL 325 mg (65 mg iron) tablet Take 1 tablet (325 mg total) by mouth daily 10/09/19 25 Active metoprolol XL (TOPROL-XL) 25 mg extended release tablet Take 1 tablet (25 mg total) by mouth nightly 11/17/19 25 Active Eliquis 5 mg tabletIndications:a trial fibrillation Take 1 tablet (5 mg total) by mouth every 12 (twelve) hours 180 tablet 3 11/22/19 25 Active nitroglycerin (NITROSTAT) 0.4 mg SL tabletIndications:N onobstructive atherosclerosis of coronary artery Place 1 tablet (0.4 mg total) under the tongue every 5 (five) minutes as needed for chest pain May repeat dose every 5 minutes for up to 3 doses total. 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 [employer] Gender Identity Male 06/21/2021 9:06 AM STOCK CLERK [employer] Sexual Orientation Bisexual 06/21/2021 9: 15 AM STOCK CLERK [employer] Last Filed Vital Signs Vital Sign Reading Time Taken Comments Blood Pressure 124/62 11/21/2024 11:10 AM CDT Pulse 63 11/21/2024 11:10 AM CDT Temperature 36.4 C (97.5 F) 06/23/2020 10:59 AM STOCK CLERK [employer] Respiratory Rate - - Oxygen Saturation 95% 11/21/2024 11:10 AM CDT Inhaled Oxygen Concentration - - Weight 77.1 kg (170 lb) 11/21/2024 11:10 AM CDT Height 160 cm (5' 3) 11/21/2024 11:10 AM CDT Body Mass Index 30.11 11/21/2024 11:10 AM CDT Plan of Treatment Not on file Procedures Procedure Name Priority Date/Time Associated Diagnosis Comments CARDIOLOGY DOCUMENT SCAN Routine 10/23/2024 2:13 PM CDT CARDIOLOGY DOCUMENT SCAN 10/23/2024 from Last 3 Months Results * Cardiology Document Scan (10/23/2024 2:13 PM CDT) Anatomical Region Laterality Modality Other us Eulogio Russo MD [facility] CEDURES Final Result * Cardiology Document Scan (10/23/2024) Anatomical Region Laterality Modality Other Eulogio Russo MD [facility] CEDURES Final Result from Last 3 Months Insurance MEDICARE [facility] FED[employer] Care Teams Electronics Design Engineer Relationship Specialty Start Date End Date Edwin Tsang MD [address] [place] [address] PCP - General Family Practice 11/21/24
--- OUTSIDE RECORDS SUMMARY | 2024-12-26 08:09 | XMS_ITS | Encounter Summary ---
Author Organization [facility] Address [address] [facility] [place] [address] Care Team Providers Care Cardiology Physician Name Role Phone Unavailable Primary Care Provider Unavailabl e Encounter Details Date Type Department Care Team (Late st Contact Info) Description 10/10/2022 Lab Requisition [facility] DermPath Lab [address] [facility] [place] [address] Martin Wooten MD [address] [place] [address] Social History Tobacco Use Types [...] AM CDT) Case Report Dermatopathology Report Case: [id number] Authorizing Provider: Martin Wooten MD Collected: 10/10/2022 12:00 AM Ordering Location: [facility]erm[facility] Lab Received: 10/10/2022 02:56 PM Pathologist: Susi Vincent MD Specimen: Skin, left upper forehead 12:34 PM CDT DERMATOPATHOLOGY LABORATORY Final Diagnosis Specimen A. 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 SCC. Please Check Margins. 3 12:34 PM CDT DERMATOPATHOLOGY LABORATORY Gross Description Specimen A: Received is one formalin filled container labeled with the patient's name and designated left upper forehead. The specimen consists of a curettage and desiccation biopsy measuring [id number], [id number] and 8s6x7fx that are all inked. Jar 0+. 3 [...] characteristic determined by the Dermatopathology Laboratory at [facility], directed by Dr. Jordyn Castelan. These tests need not be, and therefore are not, approved by the [place] Food and Drug Administration. The tests are used for clinical purposes. Billing Codes Specimen Charges Stain Charges 94117 1 3 12:34 PM CDT DERMATOPATHOLOGY LABORATORY Embedded Images 3 12:34 PM CDT DERMATOPATHOLOGY LABORATORY Pathology/Cytolog y TISSUE SPECIMEN FROM SKIN / Unknown 10/10/2022 10/10/2022 2:56 PM CDT us Martin Wooten MD LAB - PATHOLOGY/CYTOLOGY ORDERAB LES Final Result DERMATOPATHOLOGY LABORATORY [facility] - Department of Dermatology [address], [address] [phone] documented in this encounter Visit Diagnoses Not on filedocumented in this encounter
--- OUTSIDE RECORDS SUMMARY | 2024-12-26 08:09 | XMS_ITS | Clinical Summary ---
Author Organization [facility] [address] [facility] [address] Address [address] [facility] [address] [place] [address] Care Team Providers Care Personnel Clerk Name Role Phone Edwin Tsang MD Primary Care Provider [phone] Allergies No known active allergies Medications Euthyrox [...] TOPICALLY TO RED AREA(S) IN GROIN 03/17/20 20 Active metroNIDAZOLE (METROGEL) 0.75 % gel APPLY [...] Incisional hernia Syncope 12/07/2013 Overview (10/27/2016): Syncope Encounters Date Type Department Care Team Description 11/21/2024 11:00 AM CDT Office Visit [facility] Cardiology [address] [place] [address] [place] [address] Tamika Salas NP Atrial flutter, unspecified type (HCC) (Primary Dx); Encounter for anticoagulation discussion and counseling; Hospital discharge follow-up; Nonobstructive atherosclerosis of coronary artery; Sleep apnea, unspecified type 10/29/2024 Orders Only [facility] Cardiology [address] [place] [address] [address] [place] [phone] Eulogio Russo MD 10/23/2024 Orders Only [facility] Health Information Management [address] [place] [address] Eulogio Russo MD 10/22/2024 Telephone [facility] Cardiology [address] [place] [address] Eulogio Russo MD from Last 3 Months Surgical History Surgery Date Site/Laterality Comments OTHER SURGICAL HISTORY Diverticulitis-s/pcolon resection: APPENDECTOMY 1957 Appendectomy CHOLECYSTECTOMY Cholecystectomy APPENDECTOMY 1957 CHOLECYSTECTOMY SURGERY FOR CONGENITAL HERNIA Medical History Medical History Date Comments Hx Other Medical Diverticulitis- s/pcolon resection Gastroesophageal reflux disease GERD Hypertension Diabetes mellitus (HCC) Acid indigestion Diverticulitis Family History Medical History Relation Name Comments Alzheimer's disease Brother B0b Alzheimer's disease Father Melzar Heart disease Mother Elsa Alzheimer's disease Sister Ana María Relation Name Status Comments Brother B0b (Age 73) Father Adilener (Age 90) Mother Elsa (Age 88) Sister Ana María Alive Social History Tobacco Use Types Packs/Day Years Used Date Smoking Tobacco: Former Cigarettes Q uit: 05/07/1965 Smokeless Tobacco: Never Tobacco Cessation:Counseling Given: Not Answered Alcohol Use Standard Drinks/Week Comments No 0 (1 standard drink = 0.6 oz pur e alcohol) Sex and Gender Information Value Date Recorded Sex Assigned at Not on file Legal Sex Male 2:26 PM TREE C[employer]EM[employer] Gender Identity Male 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 Sexual Orientation Bisexual 06/21/2021 9: 15 AM TREE CARE FOREMAN Obstetrics History Last Filed Vital Signs Vital Sign Reading Time Taken Comments Blood Pressure 124/62 11/21/2024 11:10 AM CDT Pulse 63 11/21/2024 11:10 AM CDT Temperature 36.4 C (97.5 F) 06/23/2020 10:59 AM TREE CARE FOREMAN Respiratory Rate - - Oxygen Saturation 95% 11/21/2024 11:10 AM CDT Inhaled Oxygen Concentration - - Weight 77.1 kg (170 lb) 11/21/2024 11:10 AM CDT Height 160 cm (5' 3) 11/21/2024 11:10 AM CDT Body Mass Index 30.11 11/21/2024 11:10 AM CDT Plan of Treatment Health Maintenance Due Date Last Done Comments Depression Screening 1940 Fall Risk Assessment 1940 Hepatitis B Screening 1958 Well Visit 65+ 02/15/2004 DTaP/Tdap/Td Vaccine (1 - Tdap) 02/29/2012 2, 03/28/2002 Zoster Vaccine (3 of 3) 12/06/2018 10/11/2018, 11/24 Pneumococcal vaccine 65+ Completed 015, 06/05/2013, 03/03/2004 Influenza Vaccine Completed 04/25/2024, , 05/11/2022, Additional history exists Procedures Procedure Name Priority Date/Time Associated Diagnosis Comments CARDIOLOGY DOCUMENT SCAN Routine 10/23/2024 2:13 PM CDT CARDIOLOGY DOCUMENT SCAN 10/23/2024 from Last 3 Months Results * Cardiology Document Scan (10/23/2024 2:13 PM CDT) Anatomical Region Laterality Modality Other Eulogio Russo MD [facility] PRO CEDURES Final Result * Cardiology Document Scan (10/23/2024) Anatomical Region Laterality Modality Other us Eulogio Russo MD [facility] PRO CEDURES Final Result from Last [address] [facility] Care Teams Personnel Clerk Relationship Specialty Start Date End Date Edwin Tsang MD [address] [place] [address] PCP - General Family Practice 11/21/24
--- NOTE | 2025-01-14 13:34 | P.SLEEP_ITS ---
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 The patient occasionally awakens from sleep short breath. He rarely awakens at night with heartburn, belching or cough. He occasionally snores and is occasionally loud enough that others complain. He rarely has trouble sleeping when he has a cold. He rarely wakes up gasping for air throughout the night. He occasionally has breathing problems at night observed by others. He rarely sweats excessively at night. He rarely has heart palpitations or irregular heartbeats during the night. He frequently falls asleep during the day but never while driving. He denies sleep paralysis, cataplexy and hypnagogic/ hypnopompic hallucinations. He denies having trouble at school or work due to sleepiness. He denies feeling afraid of going to sleep. He rarely has nightmares. He occasionally remembers his dreams. He occasionally has thoughts racing through his mind. He occasionally feels sad, depressed and anxious. He rarely has muscular tension. He occasionally notices parts of his body jerk he occasionally kicks during the. He occasionally has crawling and aching feelings in his and occasionally has leg pain during the. He denies grinding his teeth during sleep and denies awakening with morning jaw pain. He is occasionally bothered by pain during the day but rarely awakened by pain during the night. He rarely wakes feeling stiff in the morning. He rarely wakes up with sore or achy muscles. He rarely wakes up with pain in the neck, spine joints. He goes to bed at 11:30 p.m. on both weekdays and weekends. It takes him 5 minutes to fall asleep. He wakes up twice throughout the night to urinate is able to fall back asleep within 10-30 minutes. He wakes up at 7:00 a.m. every morning. He typically gets 5-6 hours of sleep per night. He will stay in bed for 5-10 minutes after waking up in the morning. He currently lives with his . He denies consuming any caffeinated beverages within 2 hours of bedtime. He denies engaging in physical exercise before bedtime. He will watch television before falling asleep. He will take naps in afternoon or the evening and they are refreshing. He denies consuming any caffeinated beverages throughout the day. He quit smoking cigarettes 60 years ago. He denies alcohol and recreational drug use. [facility] Past Medical History Medical History Retinal detachment s/p cryosurgery, 2001 CAD (coronary artery disease) Hernia BMI 29.0-29.9,adult Neuropathy COVID-19 Essential (primary) hypertension Gastro-esophageal reflux disease without esophagitis Other and unspecified hyperlipidemia Hypothyroidism Type 2 diabetes mellitus without complication, with no history of insulin use Vitamin D deficiency Surgical History Surgical History History of cholecystectomy History of appendectomy History of colon resection Family History Family History Mother Family history of gastrointestinal disorder, Onset Age: 85 Family history of congestive heart failure, Onset Age: 85 Patient's mother is Family history of heart disease in male family member before age 55 Family history of congenital heart disease, Onset Age: 85 Father Family history of Alzheimer's disease, Onset Age: 89 Patient's father is Family history of renal failure Sibling Family history of Alzheimer's disease Other Hypertension Social History Social History Smoking packs per day: 0.5 Smoking cigarettes per day: 10.0 Years smoked: 4 Smoking pack-years: 2.00 Smoking status: Former smoker Tobacco type: cigarettes Second hand tobacco smoke exposure: No Additional smoking assessment comments: quit smoking in 1963 Alcohol intake: never Substance use: never Substance use type: does not use Do You Feel Safe in your Home?: Yes Lack of Transportation: No Lack of Food: Never True Current Housing: I Have Housing Concerned About Future Housing: No Difficulty Paying Gas/Electric Bills: No Difficulty Paying for Meds: No Currently Unemployed: No Education: Bachelor's Degree Difficulty w/ Childcare or Family Care: No Living arrangements: with family Occupation/Education: retired 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[employer], [employer]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 Gender identity (if verbalized by the patient): Male Spiritual care concerns: No Medications Home Medications ?Medication ?Instructions ?Recorded ?Confirmed ?Type cholecalciferol (vitamin D3) 50 2,000 unit PO DAILY #90 tabs 06/28/19 10/30/24 Rx mcg (2,000 unit) tablet metronidazole 0.75 % topical gel 1 applic topical BID 01/03/20 10/30/24 History multivitamin 1 cap PO 1200 04/29/20 10/30/24 History mecobalamin (vitamin B12) 1,000 1,000 mcg PO 1200 11/03/20 10/30/24 History mcg disintegrating tablet,sublingual loratadine 10 mg capsule 10 mg PO DAILY 06/08/21 10/30/24 History aspirin 81 mg tablet,delayed 81 mg PO 1200 10/31/21 10/30/24 History release diclofenac sodium 1 % topical gel 4 g topical QID PRN knee pain #100 09/27/23 10/30/24 Rx grams levothyroxine 75 mcg tablet 75 mcg PO DAILY #90 tabs 09/19/24 10/30/24 Rx (Euthyrox) apixaban 5 mg tablet (Eliquis) 5 mg PO Q12HR #60 tabs 10/23/24 10/30/24 Rx metoprolol succinate 25 mg 25 mg PO QPM #90 tabs 10/30/24 10/30/24 Rx tablet,extended release 24 hr amlodipine 5 mg tablet See Rx Instructions .Route 12/09/24 Rx .COMPLEX #90 tabs lisinopril 40 mg tablet See Rx Instructions .Route 12/09/24 Rx .COMPLEX #90 tabs empagliflozin 5 mg-metformin 1,000 See Rx Instructions .Route 12/23/24 Rx mg tablet (Synjardy) .COMPLEX #180 tabs ferrous sulfate 325 mg (65 mg See Rx Instructions .Route 01/06/25 Rx iron) tablet .COMPLEX #90 tabs omeprazole 40 mg capsule,delayed See Rx Instructions .Route 01/06/25 Rx release .COMPLEX #90 caps Sleep Procedure A full night split study using the [employer] multi-channel system recorded the standard physiologic parameters including EEG, EOG, submentalis EMG, anterior tibialis EMG, EKG, body position, nasal and oral airflow using nasal pressure sensor and thermistor.? Respiratory parameters of chest and abdominal movements were recorded with Respiratory Inductance Plethysmography belts. Oxygen saturation was recorded by pulse oximetry. Video monitoring was also performed. Sleep stages, periodic limb movements, and EEG arousals were scored in 30 second epochs according to the criteria of the AASM Scoring Manual. The Apnea-Hypopnea Index was calculated using CMS guidelines for definition of hypopnea with 4% O2 desaturations while scoring respiratory events. Sleep Architecture During the diagnostic portion of the study, the total recording time was 147.2 minutes. The total sleep time was 132.5 minutes. Sleep latency was 2.2 minutes.? REM latency was 48.0 minutes. Sleep Efficiency was 90.0%. The patient had 11 awakenings for an awakening index of 5.0. Wake after sleep onset time was 12.5 minutes. The patient spent 21.0 minutes, 15.8% of total sleep time in Stage N1. The patient spent 93.5 minutes, 70.6% in Stage N2. The patient spent 0.0 minutes, 0.0% in Stage N3. The patient spent 18.0 minutes, 13.6% in Stage REM sleep. At 12:40:08 AM the patient was placed on PAP treatment and was titrated at pressures ranging from 5 cm H20 up to 14/6 cm H20. During the treatment portion of the study, the total recording time was 335.9 minutes.? The total sleep time was 103.0 minutes. Sleep latency was 72.5 minutes. REM latency was 177.0 minutes. Sleep Efficiency was 30.7%. Wake after Sleep Onset time was 160.0 minutes. The patient spent 31.5 minutes, 30.6% of total sleep time in Stage N1. The patient spent 50.5 minutes, 49.0% in Stage N2. The patient spent 0.0 minutes, 0.0% in Stage N3. The patient spent 21.0 minutes, 20.4% in Stage REM. Respiratory Analysis During the diagnostic portion of the study, the patient had 13 hypopneas for an overall Apnea Hypopnea Index of 5.9 events per hour. The REM Apnea Hypopnea Index was 43.3. The NREM Apnea Hypopnea Index was 1.0. The patient had a Central Apnea Hypopnea Index of 0. There was no evidence of Siddharth-Wilburn Respirations. During the treatment portion of the study, the patient had 15 hypopneas, 2 obstructive apneas, 7 mixed apneas, and 3 central apneas for an overall Apnea Hypopnea Index of 15.7 events per hour. The REM Apnea Hypopnea Index was 28.6. The NREM Apnea Hypopnea Index was 12.4. The patient had a Central Apnea Hypopnea Index of 1.7. There was no evidence of Siddharth-Wilburn Respirations. The patient was started on CPAP 5 cm H2O and titrated to BPAP 14/6 cm H2O due to hypopneas. The patient was able to fall asleep starting on CPAP 7 cm H2O. The patient was able to achieve REM sleep starting on BPAP 8/4 cm H2O. The lowest residual AHI the patient was able to achieve was 0 on BPAP 12/4 cm H2O. On BPAP 12/4 cm H2O, the patient spent 21.5 minutes in NREM and 0 minutes in REM with no respiratory events, resulting in an AHI of 0. The patient had a sleep efficiency of 97.7% on this pressure setting. Arousals During the diagnostic portion of the study, there were a total of 31 arousals for an arousal index of 14.0.? There was 1 respiratory arousal for an index of 0.5. There were 4 periodic limb movement arousals for an index of 1.8.? There were 9 isolated limb movement arousals for an index of 4.1. There were 17 spontaneous arousals for an index of 7.7. During the treatment portion of the study, there were a total of 48 arousals for an index of 28.0.? There were 18 respiratory arousals for an index of 10.5. There were 0 periodic limb movement arousals for an index of 0.? There were 0 isolated limb movement arousals for an index of 0. There were 30 spontaneous arousals for an index of 17.5. Periodic Limb Movements During the diagnostic portion of the study, the patient had 25 isolated limb movements with an index of 11.3. The patient had 14 periodic limb movements with an index of 6.3. The patient had a total of 39 limb movements with a total limb movement index of 17.7. During the treatment portion of the study, the patient had 6 isolated limb movements with an index of 3.5. The patient had 0 periodic limb movements with an index of 0. The patient had a total of 6 limb movements with a total limb movement index of 3.5. Oximetry Data During the diagnostic portion of the study, the patient had an average oxygen saturation of 94% in wake with a minimum oxygen saturation of 88% and a maximum oxygen saturation of 98%. The patient had an average oxygen saturation of 92.7% in sleep with a minimum oxygen saturation of 86.0% and a maximum oxygen saturation of 96.0%. The patient had 15 oxygen desaturations resulting in an Oxygen Desaturation Index of 6.8. The patient spent 1.1 minutes, 0.7% of total sleep time with an oxygen saturation less than 88%. During the treatment portion of the study, the patient had an average oxygen saturation of 94.7% in wake with a minimum oxygen saturation of 87.0% and a maximum oxygen saturation of 98.0%. The patient had an average oxygen saturation of 92.9% in sleep with a minimum oxygen saturation of 87.0% and a maximum oxygen saturation of 98.0%. The patient had 51 oxygen desaturations resulting in an Oxygen Desaturation Index of 29.7. The patient spent 1.8 minutes, 0.6% of total sleep time with an oxygen saturation less than 88%. Snoring Profile Snoring was not present during this study. Cardiac Profile The EKG lead showed normal sinus rhythm with occasional PVCs. During the diagnostic portion of the study, the average pulse rate was 62.5 bpm.? The minimum pulse rate was 57.0 bpm. The maximum pulse rate was 79.0 bpm. During the treatment portion of the study, the average pulse rate was 60.2 bpm.? The minimum pulse rate was 51.0 bpm. The maximum pulse rate was 83.0 bpm. EEG Profile No signs of seizure activity seen. Assessment and Plan Assessment and Plan (1) PATIENCE (obstructive sleep apnea): Code(s): G47.33 - Obstructive sleep apnea (adult) (pediatric) Status: Acute Assessment and Plan: In the baseline portion of the study, the patient had an overall AHI of 5.9 with desaturation down to 86%. This is consistent with mild sleep apnea. Due to the patient's hypertension, he qualifies for treatment. The patient was started on CPAP 5 cm H2O and titrated to BPAP 14/6 cm H2O due to hypopneas. I recommend that the patient be prescribed BPAP 12/4 cm H2O, size medium F&P Vitera full face mask, BPAP filters/tubing and heated humidity. A Mandibular advancement device could also be considered as a treatment option if he refuses BPAP therapy. This should be used with all episodes of sleep.? Compliance should be reviewed within 31-90 days of starting therapy for usage greater than 4 hours per night greater than 70% of the nights. The patient should be asked about symptoms such as?excessive daytime sleepiness, quality of sleep, decreased nocturia, increased?mental functioning such as memory, mood, and concentration. Data The data obtained during this sleep study is adequate for interpretation. Certification This sleep study has been reviewed by a board certified sleep medicine physician.
[2025-01-15 12:39] VITALS: BMI 30.1
== END 2024-12-27 06:51 | disposition home or self-care (01) ==
LOC: ANHCSM 08:02
PROVIDERS: PCP Family Medicine; Visit Provider Nurse Practitioner Adult Health
DX: G47.33 Obstructive sleep apnea (adult) (pediatric) (principal); I48.92 Unspecified atrial flutter
CPT/HCPCS: 95811

== ENCOUNTER 2025-01-10 10:37 | Outpatient (CLI) | payer MEDICARE, BC, SELFPAY ==
[2025-01-10 11:42] LABS: Hematocrit 32.7 % (42.0-52.0); Hemoglobin 10.7 g/dL (14.0-18.0); Mean Corpuscular HGB Conc 32.7 g/dl (32-36); Mean Corpuscular Hemoglobin 29.8 pg (26-34); Mean Corpuscular Volume 91.1 fl (80-100); Mean Platelet Volume 8.3 fl (7.4-10.4); Platelet Count Result 258 k/mm3 (150-375); Red Blood Count 3.59 M/mm3 (4.6-6.20); Red Cell Distribution Width 13.2 % (11.5-14.5); White Blood Count 10.8 K/mm3 (4.5-10.0)
[2025-01-10 12:17] LABS: Hemoglobin A1C 6.9 % (<5.7)
[2025-01-10 12:23] LABS: Alanine Aminotransferase 18 U/L (6-50); Albumin Level 3.7 g/dL (3.5-5.1); Alkaline Phosphatase 64 U/L (38-126); Anion Gap 13 mmol/L (4-12); Aspartate Amino Transferase 29 U/L (17-59); Bilirubin,Total 0.9 mg/dL (0.2-1.3); Blood Urea Nitrogen 18 mg/dL (9-20); Calcium 8.6 mg/dL (8.4-10.2); Carbon Dioxide 18 mmol/L (22-30); Chloride 105 mmol/L (98-107); Estimated Glomerular Filt Rate > 60; Glucose 183 mg/dL (65-110); Potassium 3.8 mmol/L (3.4-5.0); Sodium 136 mmol/L (137-145); Total Protein 6.7 g/dL (6.3-8.2)
== END 2025-01-10 10:38 | disposition home or self-care (01) ==
PROVIDERS: PCP Family Medicine; Visit Provider Family Medicine
DX: E03.9 Hypothyroidism, unspecified (principal); I10 Essential (primary) hypertension; R06.00 Dyspnea, unspecified; E11.69 Type 2 diabetes mellitus with other specified complication; E78.5 Hyperlipidemia, unspecified; E66.3 Overweight
CPT/HCPCS: 36415; 80053; 83036; 84443; 85027

== ENCOUNTER 2025-01-23 10:20 | Outpatient (CLI) | payer MEDICARE, BC, SELFPAY ==
--- OUTSIDE RECORDS SUMMARY | 2025-01-23 10:27 | XMS_ITS | Data Portability ---
Author Organization [facility], Main Office Address [address] [place] [address] Care Team Providers Care Strap Maker Name Role Phone JANKI GRIGGS Primary Care Provider [phone] JANKI GRIGGS Referring Provider [phone] ERIK BETANCOURT Primary Care Provider ERIK BETANCOURT Referring Provider [phone] Assessment Encounter Date Assessment Date Assessment LastModified [...] in 2019 which showed medial compartment is paeb-bo-xtul in the left knee on a PA [...] more than half the time spent in neem-co-whyr care. I will see him back on [...] procedure, administere d by provider 2022 023 [email or web address] In-Office Order, Internal Use Only DO Not Attach Compendium DO Not Attach Compendium, Do Not Delete/merge, [id number] 3 10:53:51 injection/a spiration joint/bursa (PROC) - in office procedure, administere d by provider 2022 023 [email or web address] In-Office Order, Internal Use Only DO Not Attach Compendium DO Not Attach Compendium, Do Not Delete/merge, [id number] 12:33:59 Surgeries None recorded. Imaging XR, knee 2022 023 [email or web address] [facility] [place], [address], [place], [address], 13:29:01 Medication Orders Kenalog 10 mg/mL suspension for injection [address] [facility], [address] [place] [address], [address], 3 10:08:54 ropivacaine (PF) 5 mg/mL (0.5 %) injection solution [address] [facility], [address] [place] [address], [address], 3 10:08:54 Kenalog 10 mg/mL suspension for injection [address] [facility], [address] [place] [address], [address], 3 12:38:25 ropivacaine (PF) 5 mg/mL (0.5 %) injection solution [address] [facility], [address] [place] [address], [address], 3 12:38:25 Patient TargetsNo targets recorded. Patient InstructionsNo instructions recorded. Reason for Referral None Reported. Results Created Date Observation Date Name Description Value Unit Range Abnormal Flag Note LastModifiedBy Organization Detail LastModifiedTime 03/31/20 21 XR, knee No observ ation record ed. [id number] [facility] [place] [address], [place], [address], 09/21/2022 21:14:09 04/21/20 21 XR, knee, 3 view No observ ation record ed. [id number] [facility] [place] [address], [place], [address], 09/21/2022 21:14:09 10/23/19 22 XR, knee No observ ation record ed. [id number] [facility] [place] [address], [place], [address], 09/21/2022 21:14:09 06/05/20 23 XR, knee No observ ation record ed. [email or web address] [facility] [place] [address], [place], [address], 06/05/2023 13:29:00 Result Notes None recorded. Problems Name Problem SNOMED Code Status Onset Date Resolution Date Notes Provider Name and Address Organization Details Recorded Time Osteoarthr itis 167698941 Active Not Available [facility] 3 21:12:20 Pain of left knee joint 2148518975350 07 Active 2022 BONNY Linton [facility] [employer] 3 12:29:25 Osteoarthr itis of left knee joint 3045607708295 09 Active 2022 BONNY Linton [facility] [employer] 3 10:52:12 Problem Notes None recorded. Procedures Surgical History Date Name Laterality Status Provider Name and Address Organization Details Recorded Time procedure on gallbladder completed Not Available [facility] 09/21/2022 21:11:21 resection of diverticulum completed Not Available [facility] 09/21/2022 21:11:21 Unlisted px cardiac surgery completed Not Available [facility] 09/21/2022 21:11:21 [facility]end[facility]2022 21:11:21 [facility] 09/21/2022 21:11:21 Retina completed Not Available [facility] 07/2022 21:11:21 Hernia Repair completed [facility] 09/21/2022 21:11:21 Imaging Results None [...] suspension for injection in office 2022 active [place]: 0003- 0494- 20 Not Available Not Available [...] administe red by the provider 10/[address] [facility]: [phone] Not Available Not Available [...] Details Last Updated DateTime 10/13/2022 167.64 cm Modesta Jose Mina [facility] 10/13/2022 12:28:52 Date Recorded Body mass index (BMI) Body height Body weight Provider Name and Address Organization Details Last Updated DateTime 11/04/2021 40.4 kg/m2 167.64 cm 062891.09 g Not Available [facility] 09/21/2022 21:11:27 Date Recorded Body height Provider Name an d Address Organization Details Last Updated DateTime 05/24/2023 167.64 cm Modesta Jose Mina [facility] 05/24/2023 10:51:37 Social History None recorded. Functional Status Question Answer Note LastModified by Organizat ion Details LastModified Time What is your level of alcohol consumption? None [id number] Information not available 09/21/2022 Mental Status None recorded. Family History Relationship Description Onset Age of this Age Resolved Age Notes LastModified by Organization Details LastModified Time Mother Heart disease [id number] Not available 09/21/2022 21:11:22 Father Hypertensive disorder [id number] Not available 09/21/2022 21:11:22 Son Blood coagulation disorder [id number] Not available 09/21/2022 21:11:22 Medical History Condition Response ARTHRITIS Y SKIN PROBLEMS Y DIABETES, TYPE Y Past Encounters Encounter ID Performer Location Encounter Start Date Encounter Closed Date Diagnosis/Indication Diagnosis SNOMED-CT Code Diagnosis ICD10 Code Diagnosis Note [id number] Jorge Malin MD [facility] [place] [address] [place] [address] 03/31/2021 00:00:00 03/31/2021 16:17:42 [id number] Jorge Malin MD [facility] [place] [address] [place] [address] 04/21/2021 00:00:00 04/21/2021 16:00:50 [id number] Jorge Malin MD [facility] [place] [address] [place] [address] 10/22/2021 00:00:00 10/22/2021 12:12:59 [id number] MD [facility] [address] [address] 11/04/2021 00:00:00 11/04/2021 11:26:25 [id number] Jorge Malin MD [facility] [address] [address] 10/13/2022 12:05:32 10/13/2022 14:19:59 Pain of left knee joint 8141829876 05855 M25.487 [id number] Jorge Malin MD [facility] [place] [address] [place] [address] 05/24/2023 10:43:51 05/24/2023 12:13:17 Osteoarthritis of left knee joint 8178777346 63123 M17.12 Health Concerns Section Related Observation LastModified by Organization Detai ls LastModified Time None Recorded Concern Status LastModified by Organization Details LastModified Time None Recorded Advance Directives Directive None Recorded Payers Insurance Date Sequence Insurance Name Policy Number Policy Herrera Covered Member ID Herrera Member ID Guarantor Name 05/24/2023 1 [place] Loy Gonzalez [id number] Loy Gonzalez 06/05/2023 2 [place] 106 Loy Gonzalez [id number] Loy Gonzalez 05/24/2023 [employer] - DMEPOS ASSIGNED (MEDICARE DME REGION B) Loy Gonzalez [id number] Loy Gonzalez
--- OUTSIDE RECORDS SUMMARY | 2025-01-23 10:27 | XMS_ITS | Clinical Summary ---
Author Organization [facility] Address [address] [place] [address] Care Team Providers Care Scratcher Tender Name Role Phone Unavailable Primary Care Provider Unavailabl e Source Comments [facility],non-owned Affiliates and Associated Physician Practices is amultiple site organization consisting of ambulatory clinics and hospital sitesin [place], [place]. This disclosure is being madepursuant to the Care Everywhere program and may not contain all information available regarding this patient. Last updated 18.[facility] [employer] Social History Tobacco Use Types Packs/Day Years [...] age to complete this topic Insurance MEDICARE [facility]
--- OUTSIDE RECORDS SUMMARY | 2025-01-23 10:28 | XMS_ITS | Encounter Summary ---
Author Organization [facility] Address [address] [place] [address] Care Team Providers Care Refrigeration Technician Name Role Phone Unavailable Primary Care Provider Unavailabl e Encounter Details Date Type Department Care Team (Late st Contact Info) Description 10/10/2022 Lab Requisition [facility] [address] [place] [address] Martin Wooten MD [address] [place] [address] Social History Tobacco Use Types [...] AM CDT) Case Report Dermatopathology Report Case: [id number] Authorizing Provider: Martin Wooten MD Collected: 10/10/2022 12:00 AM Ordering Location: [facility] Received: 10/10/2022 02:56 PM [...] of a curettage and desiccation biopsy measuring [id number], [id number] and [id number] that are all inked. Jar 0+. 3 [...] by the Dermatopathology Laboratory at [facility], directed by Dr. Jordyn Castelan. These tests need not be, and therefore are not, approved by the [place] Food and Drug Administration. The tests are used for clinical purposes. Billing Codes Specimen Charges Stain Charges 75539 1 3 12:34 PM CDT DERMATOPATHOLOGY LABORATORY Embedded Images 3 12:34 PM CDT DERMATOPATHOLOGY LABORATORY Pathology/Cytolog y TISSUE SPECIMEN FROM SKIN / Unknown 10/10/2022 10/10/2022 2:56 PM CDT us Martin Wooten MD LAB - PATHOLOGY/CYTOLOGY ORDERAB LES Final Result DERMATOPATHOLOGY LABORATORY [facility] - Department of Dermatology [address], [address] [phone] documented in this encounter Visit Diagnoses Not on filedocumented in this encounter
[2025-01-23 10:54] LABS: Add Urine Microscopic? YES; Appearance Urine Clear (Clear); Glucose Urine UA 3+ mg/dL (Negative); Leukocyte Esterase Ur Negative LEU/UL (Negative); Nitrate Urine Negative (Negative); Specific Grav Ur 1.026 (1.001-1.035)
[2025-01-23 11:27] LABS: Prostate Specific Antigen 1.8 ng/mL (< OR = 4.0)
== END 2025-01-23 10:21 | disposition home or self-care (01) ==
PROVIDERS: PCP Family Medicine; Visit Provider Family Medicine
DX: R35.0 Frequency of micturition (principal); Z12.5 Encounter for screening for malignant neoplasm of prostate
CPT/HCPCS: 36415; 81001; 84153; 87086; G0103

== ENCOUNTER 2025-01-23 16:04 | Outpatient (CLI) | payer MEDICARE, BC, SELFPAY ==
--- OUTSIDE RECORDS SUMMARY | 2025-01-23 16:06 | XMS_ITS | Encounter Summary ---
Author Organization [facility] Address [address] [address] Care Team Providers Care Bread Dough Mixer Name Role Phone Unavailable Primary Care Provider Unavailabl e Encounter Details Date Type Department Care Team (Late st Contact Info) Description 10/10/2022 Lab Requisition [facility] [address] [place] [address] Martin Wooten MD [address] [place] [address] Social History Tobacco Use Types [...] AM CDT) Case Report Dermatopathology Report Case: [id number] Authorizing Provider: Martin Wooten MD Collected: 10/10/2022 12:00 AM Ordering Location: [facility] Received: 10/10/2022 02:56 PM Pathologist: [...] of a curettage and desiccation biopsy measuring [id number], [id number] and [id number] that are all inked. Jar 0+. 3 [...] by the Dermatopathology Laboratory at [facility], directed by Dr. Jordyn Castelan. These tests need not be, and therefore are not, approved by the [place] Food and Drug Administration. The tests are used for clinical purposes. Billing Codes Specimen Charges Stain Charges 98343 1 3 12:34 PM CDT DERMATOPATHOLOGY LABORATORY Embedded Images 3 12:34 PM CDT DERMATOPATHOLOGY LABORATORY Pathology/Cytolog y TISSUE SPECIMEN FROM SKIN / Unknown 10/10/2022 10/10/2022 2:56 PM CDT us Martin Wooten MD LAB - PATHOLOGY/CYTOLOGY ORDERAB LES Final Result DERMATOPATHOLOGY LABORATORY [facility] - Department of Dermatology [address], [address] [phone] documented in this encounter Visit Diagnoses Not on filedocumented in this encounter
--- OUTSIDE RECORDS SUMMARY | 2025-01-23 16:06 | XMS_ITS | Referral Summary ---
Author Organization [place] [address] [address] [place] [id number] Care Team Providers Care No Bake Molder Name Role Phone Edwin Tsang MD Primary Care Provider [phone] Encounters Date Type Department Care Team Description 01/16/2025 Orders Only [facility] Cardiology [address] [place] [address] [address] [place] [address] Tamika Salas NP Atrial flutter, unspecified type (HCC); Sleep apnea, unspecified type 01/16/2025 Telephone [facility] Cardiology [address] [place] [address] [address] [place] [address] Tamika Salas NP 11/21/2024 11:00 AM CDT Office Visit [facility] Cardiology [address] [place] [address] [address] [place] [address] Tamika Salas NP Atrial flutter, unspecified type (HCC) (Primary Dx); Encounter for anticoagulation discussion and counseling; Hospital discharge follow-up; Nonobstructive atherosclerosis of coronary artery; Sleep apnea, unspecified type 10/29/2024 Orders Only [facility] Cardiology [address] [place] [address] [address] [place] [address] Eulogio Russo MD from Last [...] gel APPLY TOPICALLY TO FACE DAILY 03/18/20 Active cholecalciferol (VITAMIN D-3) 2000 unit capsule [...] on file Legal 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 Gender Identity Male 06/21/2021 9:06 AM 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 Sexual Orientation Bisexual 06/21/2021 9: 15 AM 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 Last Filed Vital Signs Vital Sign Reading Time Taken Comments Blood Pressure 124/62 11/21/2024 11:10 AM CDT Pulse 63 11/21/2024 11:10 AM CDT Temperature 36.4 C (97.5 F) 06/23/2020 10:59 AM 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 Respiratory Rate - - Oxygen Saturation 95% 11/21/2024 11:10 AM CDT Inhaled Oxygen Concentration - - Weight 77.1 kg (170 lb) 11/21/2024 11:10 AM CDT Height 160 cm (5' 3) 11/21/2024 11:10 AM CDT Body Mass Index 30.11 11/21/2024 11:10 AM CDT Plan of Treatment Not on file Insurance MEDICARE [facility] Care Teams No Bake Molder Relationship Specialty Start Date End Date Edwin Tsang MD [address] [place] [address] PCP - General Family Practice 11/21/24
--- OUTSIDE RECORDS SUMMARY | 2025-01-23 16:06 | XMS_ITS | Clinical Summary ---
Author Organization [facility] [address] Address [address] [place] [address] Care Team Providers Care Help Desk Engineer Name Role Phone Edwin Tsang MD Primary Care Provider [phone] Allergies No known active allergies Medications Euthyrox [...] Department Care Team Description 01/16/2025 Orders Only [facility] Cardiology [address] [place] [address] [place] [address] Tamika Salas NP Atrial flutter, unspecified type (HCC); Sleep apnea, unspecified type 01/16/2025 Telephone [facility] Cardiology [address] [place] [address] [place] [address] Tamika Salas NP 11/21/2024 11:00 AM CDT Office Visit [facility] Cardiology [address] [place] [address] [address] [place] [address] Tamika Salas NP Atrial flutter, unspecified type (HCC) (Primary Dx); Encounter for anticoagulation discussion and counseling; Hospital discharge follow-up; Nonobstructive atherosclerosis of coronary artery; Sleep apnea, unspecified type 10/29/2024 Orders Only [facility] Cardiology [address] [place] [address] Eulogio Russo MD from Last [...] Alzheimer's disease Father [place] Heart disease Mother [place] Alzheimer's disease Sister Ana María Relation Name [...] on file Legal 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 Gender Identity Male 06/21/2021 9:06 AM FITNESS SERVICES MANAGER Sexual Orientation Bisexual 06/21/2021 9: 15 AM FITNESS SERVICES MANAGER Obstetrics History Last Filed Vital Signs Vital Sign Reading Time Taken Comments Blood Pressure 124/62 11/21/2024 11:10 AM CDT Pulse 63 11/21/2024 11:10 AM CDT Temperature 36.4 C (97.5 F) 06/23/2020 10:59 AM FITNESS SERVICES MANAGER Respiratory Rate - - Oxygen Saturation 95% [...] Completed 04/25/2024, , 05/11/2022, Additional history exists Insurance MEDICARE [facility] Care Teams Help Desk Engineer Relationship Specialty Start Date End Date Edwin Tsang MD [address] [place] [address] PCP - General Family Practice 11/21/24
--- OUTSIDE RECORDS SUMMARY | 2025-01-23 16:06 | XMS_ITS | Clinical Summary ---
Author Organization [facility] Address [address] [place] [address] Care Team Providers Care Powerhouse Helper Name Role Phone Unavailable Primary Care Provider Unavailabl e Source Comments [facility],non-owned Affiliates and Associated Physician Practices is amultiple site organization consisting of ambulatory clinics and hospital sitesin [place], [place], [place] and [place]. This disclosure is being madepursuant to the Care Everywhere program and may not contain all information available regarding this patient. Last updated 18.[facility] [employer]FE Social History Tobacco Use Types Packs/Day Years [...] age to complete this topic Insurance MEDICARE [facility]
[2025-01-23 17:16] LABS: IFOB Positive Control Positive; Immunochemical Fecal Occult Bl Positive (N)
== END 2025-01-23 16:05 | disposition home or self-care (01) ==
PROVIDERS: PCP Family Medicine; Visit Provider Family Medicine
DX: K92.1 Melena (principal)
CPT/HCPCS: 82274

== ENCOUNTER 2025-04-04 02:28 | Day surgery (SDC) | payer MEDICARE, BC, SELFPAY ==
[2025-03-26 16:05] VITALS: BMI 30.1
--- NOTE | 2025-03-26 16:41 | PC.NURSE ---
Spoke with _patient and spouse_ regarding medication _ELIQUIS_. BOTH_verbalizes understanding that the last dose is to be taken on _04/01/2025_ and the Endoscopist will instruct them when to restart after the procedure.
[2025-04-04 12:08] VITALS: BP 172/67; PULSE 64; RESP 16; TEMP 36.4; O2SAT 98; BMI 29.2
--- NOTE | 2025-04-04 12:09 | P.HP_ITS ---
History of Present Illness History of Present Illness Consent: Risks, benefits, and alternatives have been discussed and questions answered. Patient agrees to proceed with procedure. Chief complaint: Other fecal abnormalities, Melena, Anemia Narrative: Loy Gonzalez is a 85 year old male here for colonoscopy, last one probably more than 10 years ago, had + FOBT Review of Systems Review of Systems: All systems reviewed & are unremarkable except as noted in HPI and below PMFSH Past Medical History Medical History (Updated 04/03/25 @ 15:47 by Olvin Cabrera, ) Atrial fibrillation Retinal detachment s/p cryosurgery, 2001 CAD (coronary artery disease) Hernia BMI 29.0-29.9,adult Neuropathy COVID-19 Essential (primary) hypertension Gastro-esophageal reflux disease without esophagitis Other and unspecified hyperlipidemia Hypothyroidism Type 2 diabetes mellitus without complication, with no history of insulin use Vitamin D deficiency Surgical History Surgical History History of cholecystectomy History of appendectomy History of colon resection Family History Family History Mother Family history of gastrointestinal disorder, Onset Age: 85 Family history of congestive heart failure, Onset Age: 85 Patient's mother is Family history of heart disease in male family member before age 55 Family history of congenital heart disease, Onset Age: 85 Father Family history of Alzheimer's disease, Onset Age: 89 Patient's father is Family history of renal failure Sibling Family history of Alzheimer's disease Other Hypertension Social History Social History Smoking packs per day: 0.5 Smoking cigarettes per day: 10.0 Years smoked: 4 Smoking pack-years: 2.00 Smoking status: Former smoker Tobacco type: cigarettes Second hand tobacco smoke exposure: No Additional smoking assessment comments: quit smoking in 1964 Alcohol intake: never Substance use: never Substance use type: does not use Do You Feel Safe in your Home?: Yes Lack of Transportation: No Lack of Food: Never True Current Housing: I Have Housing Concerned About Future Housing: No Difficulty Paying Gas/Electric Bills: No Difficulty Paying for Meds: No Currently Unemployed: No Education: Bachelor's Degree Difficulty w/ Childcare or Family Care: No Living arrangements: with family Occupation/Education: retired 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[employer], 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 Instructions: .Provider Order loratadine 10 mg capsule 10 mg PO DAILY 06/08/2103/24 History diclofenac sodium 1 % topical gel 4 g topical QID PRN knee pain #100 09/27/23 03/26/25 Rx grams apixaban 5 mg tablet (Eliquis) 5 mg PO Q12HR #60 tabs 10/23/24 03/26/25 Rx metoprolol succinate 25 mg 25 mg PO QPM #90 tabs 10/3004/04/25 Rx tablet,extended release 24 hr amlodipine 5 mg tablet See Rx Instructions .Route 0 12/09/24 04/04/25 Rx .COMPLEX #90 tabs lisinopril 40 mg tablet See Rx Instructions .Route 0 12/09/24 04/04/25 Rx .COMPLEX #90 tabs empagliflozin 5 mg-metformin 1,000 See Rx Instructions .Route 12/23/24 04/04/25 Rx mg tablet (Synjardy) .COMPLEX #180 tabs ferrous sulfate 325 mg (65 mg See Rx Instructions .Rou te 01/06/25 04/04/25 Rx iron) tablet .COMPLEX #90 tabs levothyroxine 75 mcg tablet 75 mcg PO DAILY #90 tabs 0 03/14/25 04/04/25 Rx (Euthyrox) cholestyramine 4 gram oral powder 4 g PO DAILY #239.4 grams 03/18/25 03/26/25 Rx (Cholestyramine Light) nitroglycerin 0.4 mg sublingual 0.4 mg sublingual Q5M PRN chest 03/26/25 03/26/25 History tablet pain omeprazole 40 mg capsule,delayed See Rx Instructions . Route 04/03/25 Rx release .COMPLEX #90 caps Allergies Allergy/AdvReac Type Severity Reaction Status Date / Time No Known Allergies Allergy Mild Verified 04/04/25 12:05 Exam Const: General: comfortable and no acute distress HENMT: Face/Nose/Sinus: Normal nares present Eyes: General: appearance normal, both eyes and all related structures Resp: Auscultation: clear to auscultation bilaterally Cardio: Rate: regular rate GI: Inspection: non-distended GI Palp: Yes Soft to palpation Skin: General skin exam: normal color Neuro: Speech: normal speech Extrem: General: normal to inspection Psych: Mental Status: mental status grossly normal Assessment and Plan Assessment and plan (1) Positive occult stool blood test: Code(s): R19.5 - Other fecal abnormalities Status: Acute Assessment and Plan: colonoscopy
--- NOTE | 2025-04-04 12:09 | WPDANESEPPF ---
Anes - Initial Pre Proc Eval Procedure: Operation Date: 04/04/25 13:00 Proposed Procedures p Diagnostic Colonoscopy - Adam Montes De Oca MD Date/Time: 04/04/25 12:09 Surgeon: Adam Montes De Oca MD Pre Op Diagnosis: Other fecal abnormalities, Melena, Anemia Patient Data Age: 85 Gender: M Height: 1.6 m Weight: 77.2 kg Allergies Allergy/AdvReac Type Severity Reaction Status Date / Time No Known Allergies Allergy Mild Verified 04/04/25 12:05 Home Medications ?Medication ?Instructions ?Recorded ?Confirmed ?Type cholecalciferol (vitamin D3) 50 2,000 unit PO DAILY #90 tabs 06/28/19 03/26/25 Rx mcg (2,000 unit) tablet metronidazole 0.75 % topical gel 1 applic topical BID 01/03/20 04/04/25 History multivitamin 1 cap PO 1200 04/29/20 04/04/25 History mecobalamin (vitamin B12) 1,000 1,000 mcg PO 1200 11/03/20 03/26/25 History mcg disintegrating tablet,sublingual Held on 03/26/25. Instructions: .Provider Order loratadine 10 mg capsule 10 mg PO DAILY 06/08/21 04/04/25 History diclofenac sodium 1 % topical gel 4 g topical QID PRN knee pain #100 09/27/23 03/26/25 Rx grams apixaban 5 mg tablet (Eliquis) 5 mg PO Q12HR #60 tabs 10/23/24 03/26/25 Rx metoprolol succinate 25 mg 25 mg PO QPM #90 tabs 10/30/24 04/04/25 Rx tablet,extended release 24 hr amlodipine 5 mg tablet See Rx Instructions .Route 12/09/24 04/04/25 Rx .COMPLEX #90 tabs lisinopril 40 mg tablet See Rx Instructions .Route 12/09/24 04/04/25 Rx .COMPLEX #90 tabs empagliflozin 5 mg-metformin 1,000 See Rx Instructions .Route 12/23/24 04/04/25 Rx mg tablet (Synjardy) .COMPLEX #180 tabs ferrous sulfate 325 mg (65 mg See Rx Instructions .Route 01/06/25 04/04/25 Rx iron) tablet .COMPLEX #90 tabs levothyroxine 75 mcg tablet 75 mcg PO DAILY #90 tabs 03/14/25 04/04/25 Rx (Euthyrox) cholestyramine 4 gram oral powder 4 g PO DAILY #239.4 grams 03/18/25 03/26/25 Rx (Cholestyramine Light) nitroglycerin 0.4 mg sublingual 0.4 mg sublingual Q5M PRN chest 03/26/25 03/26/25 History tablet pain omeprazole 40 mg capsule,delayed See Rx Instructions .Route 04/03/25 Rx release .COMPLEX #90 caps Laboratory Tests 04/04/25 11:59 POC Capillary Glucose 122 H mg/dl (65-105) Patient hx anesthesia problems: none Family hx anesthesia problems: none Results Review: All pre-operative results and documents have been reviewed as part of the pre-operative evaluation. [facility] Past Medical History Medical History Atrial fibrillation Retinal detachment s/p cryosurgery, 2001 CAD (coronary artery disease) Hernia BMI 29.0-29.9,adult Neuropathy COVID-19 Essential (primary) hypertension Gastro-esophageal reflux disease without esophagitis Other and unspecified hyperlipidemia Hypothyroidism Type 2 diabetes mellitus without complication, with no history of insulin use Vitamin D deficiency Surgical History Surgical History History of cholecystectomy History of appendectomy History of colon resection Family History Family History Mother Family history of gastrointestinal disorder, Onset Age: 85 Family history of congestive heart failure, Onset Age: 85 Patient's mother is Family history of heart disease in male family member before age 55 Family history of congenital heart disease, Onset Age: 85 Father Family history of Alzheimer's disease, Onset Age: 89 Patient's father is Family history of renal failure Sibling Family history of Alzheimer's disease Other Hypertension Social History Social History Smoking packs per day: 0.5 Smoking cigarettes per day: 10.0 Years smoked: 4 Smoking pack-years: 2.00 Smoking status: Former smoker Tobacco type: cigarettes Second hand tobacco smoke exposure: No Additional smoking assessment comments: quit smoking in 1964 Alcohol intake: never Substance use: never Substance use type: does not use Do You Feel Safe in your Home?: Yes Lack of Transportation: No Lack of Food: Never True Current Housing: I Have Housing Concerned About Future Housing: No Difficulty Paying Gas/Electric Bills: No Difficulty Paying for Meds: No Currently Unemployed: No Education: Bachelor's Degree Difficulty w/ Childcare or Family Care: No Living arrangements: with family Occupation/Education: retired 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[employer], 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 Gender identity (if verbalized by the patient): Male Spiritual care concerns: No Anes - Eval Final PreProcedure Day of Procedure 04/04/25 12:09 Patient weight: obese Heart: irregular rhythm Lungs: clear to auscultation Airway: Mallampati scale class II Neurological: alert and oriented Last oral intake: >/= 8 hours ASA classification: III Emergent: no Anesthetic plan: proceed Anesthesia type and monitoring: general GIVS and standard monitoring Results Review: All pre-operative results and documents have been reviewed as part of the pre-operative evaluation. Informed Consent: The patient's anesthetic plan and its attendant risks and benefits were discussed with the patient/family/POA. Questions were solicited and answers provided to the satisfaction of the patient/family/POA.
[2025-04-04] MEDS: LACTATED RINGERS 1,000 ML 150 ML IV CONT (12:31)
[2025-04-04 12:34] VITALS: BP 129/58; PULSE 52; RESP 17; O2SAT 97
--- NOTE | 2025-04-04 12:35 | S_PTH ---
PATIENT: Loy Gonzalez LOC: [facility]#:[id number] AGE/SX: 85/M ROOM: RE04/04/[address]: Adam Montes De Oca MD : 1940 BED: DIS: 04/04/2025 SPEC #: [id number] RECD: 04/04/25 13:25 STATUS: KRISTY REQ #: [id number] JENELLE: 04/04/25 12:[address]: Adam Montes De Oca DEPT: [facility] Surgical RECD BY: Miladis Reed ENTERED: 04/04/25 13:26 SP TYPE: Surgical OTHR DR: Edwin Tsang MD Tissues: A - Colon Polypectomy B - Rectal Polyp Procedures: Hematoxylin and Eosin Stain Gross and Microscopic Level 4
[2025-04-04 12:44] VITALS: BP 137/58; PULSE 60; RESP 18; O2SAT 97
[2025-04-04 12:54] VITALS: BP 145/65; PULSE 53; RESP 18; O2SAT 100
== END 2025-04-04 13:34 | disposition home or self-care (01) ==
PROVIDERS: PCP Family Medicine; Referring Provider Family Medicine; Visit Provider Internal Medicine Gastroenterology
PROC: 0DJD8ZZ Inspection of Lower Intestinal Tract, Via Natural or Artificial Opening Endoscopic (ICD-10-PCS; CPT 45378; principal; 2025-04-04 13:00)
DX: D12.3 Benign neoplasm of transverse colon (principal); D12.8 Benign neoplasm of rectum; K64.8 Other hemorrhoids; E03.9 Hypothyroidism, unspecified; E11.9 Type 2 diabetes mellitus without complications; I10 Essential (primary) hypertension; K21.9 Gastro-esophageal reflux disease without esophagitis; E78.49 Other hyperlipidemia; E55.9 Vitamin D deficiency, unspecified; I48.91 Unspecified atrial fibrillation; I25.10 Atherosclerotic heart disease of native coronary artery without angina pectoris; G62.9 Polyneuropathy, unspecified; E66.9 Obesity, unspecified; Z68.29 Body mass index [BMI] 29.0-29.9, adult; Z79.01 Long term (current) use of anticoagulants; Z79.84 Long term (current) use of oral hypoglycemic drugs; Z98.890 Other specified postprocedural states; Z90.49 Acquired absence of other specified parts of digestive tract; Z87.891 Personal history of nicotine dependence; Z82.49 Family history of ischemic heart disease and other diseases of the circulatory system
CPT/HCPCS: 45385; 82948; 88305; J2704; J7120

== ENCOUNTER 2025-06-12 00:33 | Day surgery (SDC) | payer MEDICARE, BC, SELFPAY ==
--- OUTSIDE RECORDS SUMMARY | 2010-05-25 18:00 | XMS_ITS | Continuity of Care Document ---
Author Organization [facility] Address [address] [place] [address] [address] [place] [address] Phone Care Team Providers Care Senior Java Ui Developer Name Role Phone [facility] Unavailable Unavail able Loy Horton Unavailable Unavailable Procedures Procedure Date Miscellaneous Vision Service - Supplies Sales Tax Progressive Lens, Plastic Tint Photochromatic, Plastic Medical Tax Eye Exam & Treatment Refraction Eye Exam & Treatment No Script Refraction Eye Exam & Treatment Refraction Eye Exam & Treatment Refraction Advance Directives Directive Yes / No Effective Date File Name No Information Encounters Encounter Description Practice Location Reason(s) For Visit Diagnoses Date Provider Providers Copied on Encounter [facility], [address] [place] [address] [address], [place], [place], [address], [place] tel:[phone] SEC [facility] No Information 3201 0 Optical Shop [facility] . [address] [facility], [address], [place], [place], [address], [place]. tel:[phone] Referring Provider: Federico Enriquez, [address] [place], [place] [address]ate [place] [address], [place], [address]. tel:[phone] sulting Provider: Loy Horton, [address] [place] [address], [place], [address]. tel:[phone] [facility], [address], [place], [place], [address], [place] tel:[phone] SEC [facility] [place] No Information Oct-2 7-201 0 Optical Shop [facility] . [address] [facility], [address], [place], [place], [address], [place]. tel:[phone] Referring Provider: Federico Enriquez, [address] [place], [place] [address]ate Center [address], [place], [address]. tel:[phone] sulting Provider: Loy Horton, [address] [place], [place] [address]ate Ctr, [place], [address]. tel:[phone] [facility], [address], [place], [place], [address], [place] tel:[phone] SEC [facility] [place] No Information Oct-1 8-201 0 Robbie Caballero. [address] [place], [place] [address]ate Center , [address], [place], [place], [facility], [place]. tel:[phone] [facility], [address], [place], [place], [address], [place] tel:[phone] [facility] [place] No Information Oct-0 5-200 9 Robbie Caballero. [address] [place], [place] [address]ate Center , [address], [place], [facility], [place]. tel:[phone] [facility], [address], [place], [place], [address], [place] tel:[phone] SEC [facility] No Information Sep-1 2-200 8 Robbie Caballero. [address] [place], [place] [address]ate Center , [address], [place], [address], [place]. tel:[phone] [facility], [address], [place], [place], [address], [place] tel:[phone] SEC [place] [facility] No Information Kevin-2 5-200 7 Karenstephanie Caballero. [address] [facility] , [address], [place], [address], [place]. tel:[phone] Family History Family Member Type Diagnosis Age At Onset No Information Payers Payer name Insurance type Covered republican ID Authoriza tion(s) No Information Social History Type Description Quantity Date Captured Comments Sex Male Smoking Status No Information Chief Complaint And Reason For Visit No Information Reason For Referral Reason For Referral No Information History Of Present Illness Encounter Date Complaint History Of Prese nt Illness No Information Functional Status Date Functional Assessmen t No Information Instructions Date Instruction Additional Infor mation No Information Assessments Type Assessment Date No Information Patient Care Teams Name Effective Dates (start - stop) Status Members No Information
--- OUTSIDE RECORDS SUMMARY | 2010-05-25 18:00 | XMS_ITS | Continuity of Care Document ---
Author Organization [facility] Address [address] [place] [address] [address] [place] [address] Phone Care Team Providers Care Seo Marketing Specialist Name Role Phone [facility], [facility] Unavailable Unavail able Loy Horton Unavailable Unavailable [...] Diagnoses Date Provider Providers Copied on Encounter [facility], [address] [place] [address] [address], [place], [place], [address], [place] tel:[phone] SEC [facility] No Information 3201 0 Optical Shop [facility] . [address] [facility], [address], [place], [place], [address], [place]. tel:[phone] Referring Provider: Federico Enriquez, [address] [place], [place] [address]ate [place] [address], [place], [address]. tel:[phone] sulting Provider: Loy Horton, [address] [place] [address], [place], [address]. tel:[phone] [facility], [address] [place] [address], [place], [place], [address], [place] tel:[phone] SEC [facility] [place] No Information Oct-2 7-201 0 Optical Shop [facility] . [address] [facility], [address], [place], [place], [address], [place]. tel:[phone] Referring Provider: Federico Enriquez, [address] [place], [place] [address]ate Center [address], [place], [address]. tel:[phone] sulting Provider: Loy Horton, [address] [place], [place] [address]ate Ctr, [place], [address]. tel:[phone] [facility], [address] [place] [address], [place], [place], [address], [place] tel:[phone] SEC [facility] [place] No Information Oct-1 8-201 0 Robbie Caballero. [address] [place], [place] [address]ate Center , [address], [place], [facility], [place]. tel:[phone] [facility], [address] [place] [address], [place], [place], [address], [place] tel:[phone] SEC [facility] [place] No Information Oct-0 5-200 9 Robbie Caballero. [address] [place], [place] [address]ate Center , [address], [place], [facility], [place]. tel:[phone] [facility], [address] [place] [address], [place], [place], [address], [place] tel:[phone] SEC [facility] No Information Sep-1 2-200 8 Robbie Caballero. [address] [place], [place] [address]ate Center , [address], [place], [address], [place]. tel:[phone] [facility], [address] [place] [address], [place], [place], [address], [place] tel:[phone] SEC [facility] [place] [facility] No Information Kevin-2 5-200 7 Karenstephanie Caballero. [address] [facility] , [address], [place], [address], [place]. tel:[phone] Family History Family Member Type Diagnosis Age At Onset No Information Payers Payer name Insurance type Covered democrat ID Authoriza tion(s) No Information Social History [...]
--- OUTSIDE RECORDS SUMMARY | 2010-05-25 18:00 | XMS_ITS | Continuity of Care Document ---
Author Organization [facility] Address [address] [place] [address] [address] [place] [address] Phone Care Team Providers Care Bridge Repairer Name Role Phone Optical Shop, [facility] Unavailable Unavail able Loy Horton Unavailable Unavailable [...] Diagnoses Date Provider Providers Copied on Encounter [facility], [address] [place] [address] [address], [place], [place], [address], [place] tel:[phone] SEC [facility] No Information 3201 0 Optical Shop [facility] . [address] [facility], [address], [place], [place], [address], [place]. tel:[phone] Referring Provider: Federico Enriquez, [address] [place], [place] [address]ate [place] [address], [place], [address]. tel:[phone] sulting Provider: Loy Horton, [address] [place] [address], [place], [address]. tel:[phone] [facility], [address] [place] [address], [place], [place], [address], [place] tel:[phone] SEC [facility] [place] No Information Oct-2 7-201 0 Optical Shop [facility] . [address] [facility], [address], [place], [place], [address], [place]. tel:[phone] Referring Provider: Federico Enriquez, [address] [place], [place] [address]ate Center [address], [place], [address]. tel:[phone] sulting Provider: Loy Horton, [address] [place], [place] [address]ate Ctr, [place], [address]. tel:[phone] [facility], [address] [place] [address], [place], [place], [address], [place] tel:[phone] SEC [facility] [place] No Information Oct-1 8-201 0 Robbie Caballero. [address] [place], [place] [address]ate Center , [address], [place], [place], [facility], [place]. tel:[phone] [facility], [address] [place], [place], [place], [address], [place] tel:[phone] SEC [facility] [place] No Information Oct-0 5-200 9 Robbie Caballero. [address] [place], [place] [address]ate Center , [address], [place], [place], [facility], [place]. tel:[phone] [facility], [address] [place], [place], [place], [address], [place] tel:[phone] SEC [facility] No Information Sep-1 2-200 8 Robbie Caballero. [address] [place], [place] [address]ate Center , [address], [place], [address], [place]. tel:[phone] [facility], [address] [place], [place], [place], [address], [place] tel:[phone] SEC [place] [facility] No Information Kevin-2 5-200 7 Karenstephanie Caballero. [address] [facility] , [address], [place], [address], [place]. tel:[phone] Family History Family Member Type Diagnosis Age At Onset No Information Payers Payer name Insurance type Covered green party ID Authoriza tion(s) No Information Social History [...]
--- OUTSIDE RECORDS SUMMARY | 2010-05-25 18:00 | XMS_ITS | Continuity of Care Document ---
Author Organization [facility] Address [address] [place] [address] [address] [place] [address] Phone Care Team Providers Care Jewelry Inspector Name Role Phone [facility], [facility] Unavailable Unavail able Loy Horton Unavailable Unavailable [...] Provider Providers Copied on Encounter [facility], [address] [place] [address] [address], [place], [place], [address], [place] tel:[phone] SEC [facility] No Information 3201 0 Optical Shop [facility] . [address] [facility], [address], [place], [place], [address], [place]. tel:[phone] Referring Provider: Federico Enriquez, [address] [place], [place] [address]ate [place] [address], [place], [address]. tel:[phone] sulting Provider: Loy Horton, [address] [place] [address], [place], [address]. tel:[phone] [facility], [address], [place], [place], [address], [place] tel:[phone] SEC [facility] [place] No Information Oct-2 7-201 0 Optical Shop [facility] . [address] [facility], [address], [place], [place], [address], [place]. tel:[phone] Referring Provider: Federico Enriquez, [address] [place], [place] [address]ate Center [address], [place], [address]. tel:[phone] sulting Provider: Loy Horton, [address] [place], [place] [address]ate Ctr, [place], [address]. tel:[phone] [facility], [address], [place], [place], [address], [place] tel:[phone] [facility] [place] No Information Oct-1 8-201 0 Robbie Caballero. [address] [place], [place] [address]ate Center , [address], [place], [facility], [place]. tel:[phone] [facility], [address], [place], [place], [address], [place] tel:[phone] [facility] [place] No Information Oct-0 5-200 9 Robbie Caballero. [address] [place], [place] [address]ate Center , [address], [place], [facility], [place]. tel:[phone] [facility], [address], [place], [place], [address], [place] tel:[phone] SEC [facility] No Information Sep-1 2-200 8 Robbie Caballero. [address] [place], [place] [address]ate Center , [address], [place], [address], [place]. tel:[phone] [facility], [address], [place], [place], [address], [place] tel:[phone] SEC [place] [facility] No Information Kevin-2 5-200 7 Karenstephanie Caballero. [address] [facility] , [address], [place], [address], [place]. tel:[phone] Family History Family Member Type Diagnosis Age At Onset No Information Payers Payer name Insurance type Covered alliance party ID Authoriza tion(s) No Information Social [...]
--- OUTSIDE RECORDS SUMMARY | 2010-05-25 18:00 | XMS_ITS | Continuity of Care Document ---
Author Organization [facility] Address [address] [place] [address] [address] [place] [address] Phone Care Team Providers Care Rug Inspector Helper Name Role Phone [facility], [facility] [place] Unavailable Unavail able Loy Horton Unavailable Unavailable [...] Diagnoses Date Provider Providers Copied on Encounter [facility], [address] [place] [address] [address], [place], [place], [address], [place] tel:[phone] SEC [facility] No Information 3201 0 Optical Shop [facility] . [address] [facility], [address], [place], [place], [address], [place]. tel:[phone] Referring Provider: Federico Enriquez, [address] [place], [place] [address]ate [place] [address], [place], [address]. tel:[phone] sulting Provider: Loy Horton, [address] [place] [address], [place], [address]. tel:[phone] [facility], [address] [place] [address], [place], [place], [address], [place] tel:[phone] SEC [facility] [place] No Information Oct-2 7-201 0 Optical Shop [facility] . [address] [facility], [address], [place], [place], [address], [place]. tel:[phone] Referring Provider: Federico Enriquez, [address] [place], [place] [address]ate Center [address], [place], [address]. tel:[phone] sulting Provider: Loy Horton, [address] [place], [place] [address]ate Ctr, [place], [address]. tel:[phone] [facility], [address] [place] [address], [place], [place], [address], [place] tel:[phone] SEC [facility] [place] No Information Oct-1 8-201 0 Robbie Caballero. [address] [place], [place] [address]ate Center , [address], [place], [place], [facility], [place]. tel:[phone] [facility], [address] [place] [address], [place], [place], [address], [place] tel:[phone] SEC [facility] [place] No Information Oct-0 5-200 9 Robbie Caballero. [address] [place], [place] [address]ate Center , [address], [place], [place], [facility], [place]. tel:[phone] [facility], [address] [place] [address], [place], [place], [address], [place] tel:[phone] SEC [facility] No Information Sep-1 2-200 8 Robbie Caballero. [address] [place], [place] [address]ate Center , [address], [place], [address], [place]. tel:[phone] [facility], [address] [place] [address], [place], [place], [address], [place] tel:[phone] SEC [place] [facility] No Information Kevin-2 5-200 7 Karenstephanie Caballero. [address] [facility] , [address], [place], [address], [place]. tel:[phone] Family History Family Member Type Diagnosis Age [...]
--- OUTSIDE RECORDS SUMMARY | 2010-05-25 18:00 | XMS_ITS | Continuity of Care Document ---
Author Organization [facility] Address [address] [place] [address] [address] [place] [address] Phone Care Team Providers Care Medical Clinic Manager Name Role Phone [facility], [facility] Unavailable Unavail able Loy Horton Unavailable Unavailable [...] Provider Providers Copied on Encounter [facility], [address] [place] [address] [address], [place], [place], [address], [place] tel:[phone] SEC [facility] No Information 3201 0 Optical Shop [facility] . [address] [facility], [address], [place], [place], [address], [place]. tel:[phone] Referring Provider: Federico Enriquez, [address] [place], [place] [address]ate [place] [address], [place], [address]. tel:[phone] sulting Provider: Loy Horton, [address] [place] [address], [place], [address]. tel:[phone] [facility], [address] [place] [address], [place], [place], [address], [place] tel:[phone] SEC [facility] [place] No Information Oct-2 7-201 0 Optical Shop [facility] . [address] [facility], [address], [place], [place], [address], [place]. tel:[phone] Referring Provider: Federico Enriquez, [address] [place], [place] [address]ate Center [address], [place], [address]. tel:[phone] sulting Provider: Loy Horton, [address] [place], [place] [address]ate Ctr, [place], [address]. tel:[phone] [facility], [address] [place] [address], [place], [place], [address], [place] tel:[phone] SEC [facility] [place] No Information Oct-1 8-201 0 Robbie Caballero. [address] [place], [place] [address]ate Center , [address], [place], [facility], [place]. tel:[phone] [facility], [address] [place] [address], [place], [place], [address], [place] tel:[phone] SEC [facility] [place] No Information Oct-0 5-200 9 Robbie Caballero. [address] [place], [place] [address]ate Center , [address], [place], [facility], [place]. tel:[phone] [facility], [address] [place] [address], [place], [place], [address], [place] tel:[phone] SEC [facility] No Information Sep-1 2-200 8 Robbie Caballero. [address] [place], [place] [address]ate Center , [address], [place], [address], [place]. tel:[phone] [facility], [address] [place] [address], [place], [place], [address], [place] tel:[phone] SEC [place] [facility] No Information Kevin-2 5-200 7 Karenstephanie Caballero. [address] [facility] , [address], [place], [address], [place]. tel:[phone] Family History Family Member Type Diagnosis Age [...]
--- OUTSIDE RECORDS SUMMARY | 2010-05-25 18:00 | XMS_ITS | Continuity of Care Document ---
Author Organization [facility] Address [address] [place] [address] [address] [place] [address] Phone Care Team Providers Care Final Armature Tester Name Role Phone [facility], [facility] Unavailable Unavail able Loy Horton Unavailable Unavailable [...] Diagnoses Date Provider Providers Copied on Encounter [facility], [address] [place] [address] [address], [place], [place], [address], [place] tel:[phone] SEC [facility] No Information 3201 0 Optical Shop [facility] . [address] [facility], [address], [place], [place], [address], [place]. tel:[phone] Referring Provider: Federico Enriquez, [address] [place], [place] [address]ate [place] [address], [place], [address]. tel:[phone] sulting Provider: Loy Horton, [address] [place] [address], [place], [address]. tel:[phone] [facility], [address] [place] [address], [place], [place], [address], [place] tel:[phone] SEC [facility] [place] No Information Oct-2 7-201 0 Optical Shop [facility] . [address] [facility], [address], [place], [place], [address], [place]. tel:[phone] Referring Provider: Federico Enriquez, [address] [place], [place] [address]ate Center [address], [place], [address]. tel:[phone] sulting Provider: Loy Horton, [address] [place], [place] [address]ate Ctr, [place], [address]. tel:[phone] [facility], [address] [place] [address], [place], [place], [address], [place] tel:[phone] SEC [facility] [place] No Information Oct-1 8-201 0 Robbie Caballero. [address] [place], [place] [address]ate Center , [address], [place], [place], [facility], [place]. tel:[phone] [facility], [address] [place] [address], [place], [place], [address], [place] tel:[phone] SEC [facility] [place] No Information Oct-0 5-200 9 Robbie Caballero. [address] [place], [place] [address]ate Center , [address], [place], [facility], [place]. tel:[phone] [facility], [address] [place] [address], [place], [place], [address], [place] tel:[phone] SEC [facility] No Information Sep-1 2-200 8 Robbie Caballero. [address] [place], [place] [address]ate Center , [address], [place], [address], [place]. tel:[phone] [facility], [address] [place] [address], [place], [place], [address], [place] tel:[phone] SEC [place] [facility] No Information Kevin-2 5-200 7 Karenstephanie Caballero. [address] [facility] , [address], [place], [address], [place]. tel:[phone] Family History Family Member Type Diagnosis Age [...]
--- OUTSIDE RECORDS SUMMARY | 2010-05-25 18:00 | XMS_ITS | Continuity of Care Document ---
Author Organization [facility] Address [address] [place] [address] [address] [place] [address] Phone Care Team Providers Care Photographer Name Role Phone [facility], [facility] Unavailable Unavail able Loy Horton Unavailable [...] Diagnoses Date Provider Providers Copied on Encounter [facility], [address] [place] [address] [address], [place], [place], [address], [place] tel:[phone] SEC [facility] No Information 3201 0 [facility] . [address] [facility], [address], [place], [place], [address], [place]. tel:[phone] Referring Provider: Federico Enriquez, [address] [place], [place] [address]ate [place] [address], [place], [address]. tel:[phone] sulting Provider: Loy Horton, [address] [place] [address], [place], [address]. tel:[phone] [facility], [address], [place], [place], [address], [place] tel:[phone] SEC [facility] [place] No Information Oct-2 7-201 0 [facility] . [address] [facility], [address], [place], [place], [address], [place]. tel:[phone] Referring Provider: Federico Enriquez, [address] [place], [place] [address]ate Center [address], [place], [address]. tel:[phone] sulting Provider: Loy Horton, [address] [place], [place] [address]ate Ctr, [place], [address]. tel:[phone] [facility], [address], [place], [place], [address], [place] tel:[phone] SEC [facility] [place] No Information Oct-1 8-201 0 Robbie Caballero. [address] [place], [place] [address]ate Center , [address], [place], [place], [facility], [place]. tel:[phone] [facility], [address], [place], [place], [address], [place] tel:[phone] SEC [facility] [place] No Information Oct-0 5-200 9 Robbie Caballero. [address] [place], [place] [address]ate Center , [address], [place], [facility], [place]. tel:[phone] [facility], [address], [place], [place], [address], [place] tel:[phone] SEC [facility] No Information Sep-1 2-200 8 Robbie Caballero. [address] [place], [place] [address]ate Center , [address], [place], [address], [place]. tel:[phone] [facility], [address], [place], [place], [address], [place] tel:[phone] SEC [place] [facility] No Information Kevin-2 5-200 7 Karenstephanie Caballero. [address] [facility] , [address], [place], [address], [place]. tel:[phone] Family History Family Member Type Diagnosis Age At Onset No Information Payers Payer name Insurance type Covered libertarian ID Authoriza tion(s) No Information Social History [...]
--- OUTSIDE RECORDS SUMMARY | 2010-05-25 18:00 | XMS_ITS | Continuity of Care Document ---
Author Organization [facility] Address [address] [place] [address] [address] [place] [address] Phone Care Team Providers Care B And B Gang Worker Name Role Phone [facility] Unavailable Unavail able Loy Horton Unavailable Unavailable [...] Diagnoses Date Provider Providers Copied on Encounter [facility], [address] [place] [address] [address], [place], [place], [address], [place] tel:[phone] SEC [facility] No Information 3201 0 [facility] . [address] [facility], [address], [place], [place], [address], [place]. tel:[phone] Referring Provider: Federico Enriquez, [address] [place], [place] [address]ate [place] [address], [place], [address]. tel:[phone] sulting Provider: Loy Horton, [address] [place] [address], [place], [address]. tel:[phone] [facility], [address], [place], [place], [address], [place] tel:[phone] SEC [facility] [place] No Information Oct-2 7-201 0 [facility] . [address] [facility], [address], [place], [place], [address], [place]. tel:[phone] Referring Provider: Federico Enriquez, [address] [place], [place] [address]ate Center [address], [place], [address]. tel:[phone] sulting Provider: Loy Horton, [address] [place], [place] [address]ate Ctr, [place], [address]. tel:[phone] [facility], [address], [place], [place], [address], [place] tel:[phone] SEC [facility] [place] No Information Oct-1 8-201 0 Robbie Caballero. [address] [place], [place] [address]ate Center , [address], [place], [place], [facility], [place]. tel:[phone] [facility], [address], [place], [place], [address], [place] tel:[phone] SEC [facility] [place] No Information Oct-0 5-200 9 Robbie Caballero. [address] [place], [place] [address]ate Center , [address], [place], [place], [facility], [place]. tel:[phone] [facility], [address], [place], [place], [address], [place] tel:[phone] SEC [facility] No Information Sep-1 2-200 8 Robbie Caballero. [address] [place], [place] [address]ate Center , [address], [place], [address], [place]. tel:[phone] [facility], [address], [place], [place], [address], [place] tel:[phone] SEC [place] [facility] No Information Kevin-2 5-200 7 Karenstephanie Caballero. [address] [facility] , [address], [place], [address], [place]. tel:[phone] Family History Family Member Type Diagnosis Age [...]
--- OUTSIDE RECORDS SUMMARY | 2010-05-25 18:00 | XMS_ITS | Continuity of Care Document ---
Author Organization [facility] Address [address] [place] [address] [address] [place] [address] Phone Care Team Providers Care Crusher Feeder Name Role Phone [facility], [facility] Unavailable Unavail able Loy Horton Unavailable [...] Diagnoses Date Provider Providers Copied on Encounter [facility], [address] [place] [address] [address], [place], [place], [address], [place] tel:[phone] SEC [facility] No Information 3201 0 [facility] . [address] [facility], [address], [place], [place], [address], [place]. tel:[phone] Referring Provider: Federico Enriquez, [address] [place], [place] [address]ate [place] [address], [place], [address]. tel:[phone] sulting Provider: Loy Horton, [address] [place] [address], [place], [address]. tel:[phone] [facility], [address], [place], [place], [address], [place] tel:[phone] SEC [facility] [place] No Information Oct-2 7-201 0 [facility] . [address] [facility], [address], [place], [place], [address], [place]. tel:[phone] Referring Provider: Federico Enriquez, [address] [place], [place] [address]ate Center [address], [place], [address]. tel:[phone] sulting Provider: Loy Horton, [address] [place], [place] [address]ate Ctr, [place], [address]. tel:[phone] [facility], [address], [place], [place], [address], [place] tel:[phone] SEC [facility] [place] No Information Oct-1 8-201 0 Robbie Caballero. [address] [place], [place] [address]ate Center , [address], [place], [place], [facility], [place]. tel:[phone] [facility], [address], [place], [place], [address], [place] tel:[phone] SEC [facility] [place] No Information Oct-0 5-200 9 Robbie Caballero. [address] [place], [place] [address]ate Center , [address], [place], [facility], [place]. tel:[phone] [facility], [address], [place], [place], [address], [place] tel:[phone] SEC [facility] No Information Sep-1 2-200 8 Robbie Caballero. [address] [place], [place] [address]ate Center , [address], [place], [address], [place]. tel:[phone] [facility], [address], [place], [place], [address], [place] tel:[phone] SEC [place] [facility] No Information Kevin-2 5-200 7 Karenstephanie Caballero. [address] [facility] , [address], [place], [address], [place]. tel:[phone] Family History Family Member Type Diagnosis Age [...]
--- OUTSIDE RECORDS SUMMARY | 2010-05-25 18:00 | XMS_ITS | Continuity of Care Document ---
Author Organization [facility] Address [address] [place] [address] [address] [place] [address] Phone Care Team Providers Care Knot Cutter Name Role Phone [facility], [facility] Unavailable Unavail able Loy Horton Unavailable Unavailable [...] Diagnoses Date Provider Providers Copied on Encounter [facility], [address] [place] [address] [address], [place], [place], [address], [place] tel:[phone] SEC [facility] No Information 3201 0 [facility] . [address] [facility], [address], [place], [place], [address], [place]. tel:[phone] Referring Provider: Federico Enriquez, [address] [place], [place] [address]ate [place] [address], [place], [address]. tel:[phone] sulting Provider: Loy Horton, [address] [place] [address], [place], [address]. tel:[phone] [facility], [address], [place], [place], [address], [place] tel:[phone] SEC [facility] [place] No Information Oct-2 7-201 0 [facility] . [address] [facility], [address], [place], [place], [address], [place]. tel:[phone] Referring Provider: Federico Enriquez, [address] [place], [place] [address]ate Center [address], [place], [address]. tel:[phone] sulting Provider: Loy Horton, [address] [place], [place] [address]ate Ctr, [place], [address]. tel:[phone] [facility], [address], [place], [place], [address], [place] tel:[phone] SEC [facility] [place] No Information Oct-1 8-201 0 Robbie Caballero. [address] [place], [place] [address]ate Center , [address], [place], [place], [facility], [place]. tel:[phone] [facility], [address], [place], [place], [address], [place] tel:[phone] SEC [facility] [place] No Information Oct-0 5-200 9 Robbie Caballero. [address] [place], [place] [address]ate Center , [address], [place], [place], [facility], [place]. tel:[phone] [facility], [address], [place], [place], [address], [place] tel:[phone] [facility] No Information Sep-1 2-200 8 Robbie Caballero. [address] [place], [place] [address]ate Center , [address], [place], [address], [place]. tel:[phone] [facility], [address], [place], [place], [address], [place] tel:[phone] SEC [place] [facility] No Information Kevin-2 5-200 7 Karenstephanie Caballero. [address] [facility] , [address], [place], [address], [place]. tel:[phone] Family History Family Member Type Diagnosis Age [...]
--- OUTSIDE RECORDS SUMMARY | 2010-05-25 19:00 | XMS_ITS | Continuity of Care Document ---
Author Organization [facility] Address [address] [place] [address] [address] [place] [address] Phone Care Team Providers Care Teachers Assistant Name Role Phone [facility], [facility] Unavailable Unavail able Loy Horton Unavailable Unavailable [...] Diagnoses Date Provider Providers Copied on Encounter [facility], [address] [place] [address] [address], [place], [place], [address], [place] tel:[phone] SEC [facility] No Information 3201 0 [facility] . [address] [facility], [address], [place], [place], [address], [place]. tel:[phone] Referring Provider: Federico Enriquez, [address] [place], [place] [address]ate [place] [address], [place], [address]. tel:[phone] sulting Provider: Loy Horton, [address] [place] [address], [place], [address]. tel:[phone] [facility], [address], [place], [place], [address], [place] tel:[phone] [facility] [place] No Information Oct-2 7-201 0 [facility] . [address] [facility], [address], [place], [place], [address], [place]. tel:[phone] Referring Provider: Federico Enriquez, [address] [place], [place] [address]ate Center [address], [place], [address]. tel:[phone] sulting Provider: Loy Horton, [address] [place], [place] [address]ate Ctr, [place], [address]. tel:[phone] [facility], [address], [place], [place], [address], [place] tel:[phone] [facility] [place] No Information Oct-1 8-201 0 Robbie Caballero. [address] [place], [place] [address]ate Center , [address], [place], [place], [facility], [place]. tel:[phone] [facility], [address], [place], [place], [address], [place] tel:[phone] [facility] [place] No Information Oct-0 5-200 9 Robbie Caballero. [address] [place], [place] [address]ate Center , [address], [place], [place], [facility], [place]. tel:[phone] [facility], [address], [place], [place], [address], [place] tel:[phone] [facility] No Information Sep-1 2-200 8 Robbie Caballero. [address] [place], [place] [address]ate Center , [address], [place], [address], [place]. tel:[phone] [facility], [address], [place], [place], [address], [place] tel:[phone] SEC [place] [facility] No Information Kevin-2 5-200 7 Karenstephanie Caballero. [address] [facility] , [address], [place], [address], [place]. tel:[phone] Family History Family Member Type Diagnosis Age [...]
[2025-05-21 10:23] VITALS: BMI 30.4
--- OUTSIDE RECORDS SUMMARY | 2025-05-22 01:33 | XMS_ITS | Data Portability ---
Author Organization [place] [facility] [employer], Main Office Address [address] [place] [address] Care Team Providers Care Aeronautical Engineering Teacher Name Role Phone JANKI GRIGGS Primary Care Provider [phone] JANKI GRIGGS Referring Provider [phone] ERIK BETANCOURT Primary Care Provider ERIK BETANCOURT Referring Provider [phone] Assessment Encounter Date Assessment Date Assessment LastModified [...] in 2019 which showed medial compartment is [id number] in the left knee on a PA [...] more than half the time spent in vdma-ht-vvbd care. I will see him back on [...] procedure, administere d by provider 2022 023 [email or web address] In-Office Order, Internal Use Only DO Not Attach Compendium DO Not Attach Compendium, Do Not Delete/merge, [id number] 3 10:53:51 injection/a spiration joint/bursa (PROC) - in office procedure, administere d by provider 2022 023 [email or web address] In-Office Order, Internal Use Only DO Not Attach Compendium DO Not Attach Compendium, Do Not Delete/merge, [id number] 12:33:59 Surgeries None recorded. Imaging XR, knee 2022 023 [email or web address] [facility], [address], [place], [address], 13:29:01 Medication Orders Kenalog 10 mg/mL suspension for injection [address] [facility], [address] [place] [address], [address], 3 10:08:54 ropivacaine (PF) 5 mg/mL (0.5 %) injection solution [address] [facility], [address] [place] [address], [address], 3 10:08:54 Kenalog 10 mg/mL suspension for injection [address] [facility], [address] [place] [address], [address], 3 12:38:25 ropivacaine (PF) 5 mg/mL (0.5 %) injection solution [address] [facility], [address] [place] [address], [address], 3 12:38:25 Patient TargetsNo targets recorded. Patient InstructionsNo instructions recorded. Reason for Referral None Reported. Results Created Date Observation Date Name Description Value Unit Range Abnormal Flag Note LastModifiedBy Organization Detail LastModifiedTime 03/31/20 21 XR, knee No observ ation record ed. [id number] [facility] [place] [address], [place], [address], 09/21/2022 21:14:09 04/21/20 21 XR, knee, 3 view No observ ation record ed. [id number] [facility] [place] [address], [place], [address], 09/21/2022 21:14:09 10/23/19 22 XR, knee No observ ation record ed. [id number] [facility] [place] [address], [place], [address], 09/21/2022 21:14:09 06/05/20 23 XR, knee No observ ation record ed. [email or web address] [facility] [place] [address], [place], [address], 06/05/2023 13:29:00 Result Notes None recorded. Problems Name Problem SNOMED Code Status Onset Date Resolution Date Notes Provider Name and Address Organization Details Recorded Time Osteoarthr itis 311063742 Active Not Available [facility] 3 21:12:20 Pain of left knee joint 9631046793288 07 Active 2022 BONNY Linton [facility] [employer] 3 12:29:25 Osteoarthr itis of left knee joint 0986147137500 09 Active 2022 BONNY Linton [facility] [employer] 3 10:52:12 Problem Notes None recorded. Procedures Surgical History Date Name Laterality Status Provider Name and Address Organization Details Recorded Time procedure on gallbladder completed Not Available [facility] 09/21/2022 21:11:21 resection of diverticulum completed Not Available [facility] 09/21/2022 21:11:21 Unlisted px cardiac surgery completed Not Available [facility] 09/21/2022 21:11:21 [facility]endectomy completed [facility] 21:11:21 Colon Resection completed Not Available [facility] 09/21/2022 21:11:21 Retina completed Not Available [facility] 07/2022 21:11:21 Hernia Repair completed Not Available [facility] 09/21/2022 21:11:21 Imaging Results None recorded. [...] provider 10/[address] [facility]: [phone] Not Available Not [...] DateTime 10/13/2022 167.64 cm Modesta Jose Mina [employer] 10/13/2022 12:28:52 Date Recorded Body mass index (BMI) Body height Body weight Provider Name and Address Organization Details Last Updated DateTime 11/04/2021 40.4 kg/m2 167.64 cm 042742.09 g Not Available [facility] 09/21/2022 21:11:27 Date Recorded Body height Provider Name an d Address Organization Details Last Updated DateTime 05/24/2023 167.64 cm Modesta Jose Mina [employer] 05/24/2023 10:51:37 Social History None recorded. Functional Status Question Answer Note LastModified by Organizat ion Details LastModified Time What is your level of alcohol consumption? None [id number] Information not available 09/21/2022 Mental Status None recorded. Family History Relationship Description Onset Age of this Age Resolved Age Notes LastModified by Organization Details LastModified Time Mother Heart disease [id number] Not available 09/21/2022 21:11:22 Father Hypertensive disorder [id number] Not available 09/21/2022 21:11:22 Son Blood coagulation disorder [id number] Not available 09/21/2022 21:11:22 Medical History Condition Response ARTHRITIS Y SKIN PROBLEMS Y DIABETES, TYPE Y Past Encounters Encounter ID Performer Location Encounter Start Date Encounter Closed Date Diagnosis/Indication Diagnosis SNOMED-CT Code Diagnosis ICD10 Code Diagnosis IMO Codes Diagnosis Note [id number] MD SHARATH [facility] [place] [address] [facility] [place] [address] 03/31/2021 00:00:00 03/31/2021 16:17:42 [id number] MD SHARATH [facility] [place] [address] [facility] [place] [id number] 04/21/2021 00:00:00 04/21/2021 16:00:50 [id number] MD SHARATH [facility] [place] [address] [facility] [place] [id number] 10/22/2021 00:00:00 10/22/2021 12:12:59 [id number] MD SHARATH [facility] [address] [address] 11/04/2021 00:00:00 11/04/2021 11:26:25 [id number] MD SHARATH [facility] [address] [address] 10/13/2022 12:05:32 10/13/2022 14:19:59 Pain of left knee joint 8532979920 77062 M25.252 [id number] Jorge Malin MD [facility] [place] [address] [facility] [place] [id number] 05/24/2023 10:43:51 05/24/2023 12:13:17 Osteoarthritis of left knee joint 6799448385 94297 M17.12 Health Concerns Section Related Observation LastModified by Organization Detai ls LastModified Time None Recorded Concern Status LastModified by Organization Details LastModified Time None Recorded Advance Directives Directive None Recorded Payers Insurance Date Sequence Insurance Name Policy Number Policy Herrera Covered Member ID Herrera Member ID Guarantor Name 05/24/2023 1 [place] Loy Gonzalez [id number] Loy Gonzalez 06/05/2023 2 [place] 106 Loy Gonzalez [id number] Loy Gonzalez 05/24/2023 [employer] - DMEPOS ASSIGNED (MEDICARE DME REGION B) Loy Gnozalez [id number] Loy Gonzalez
--- OUTSIDE RECORDS SUMMARY | 2025-05-22 01:33 | XMS_ITS | Clinical Summary ---
Author Organization [facility] [address] Address [address] [place] [address] Care Team Providers Care Windows Security Engineer Name Role Phone Edwin Tsang MD Primary Care Provider [phone] Allergies No known active allergies Medications Euthyrox [...] Active Problems Problem Noted Date Diagnosed Date Chronic anticoagulation 04/10/2025 Coronary artery disease invo lving [place] coronary artery of [place] heart 04/10/2025 PATIENCE (obstructive sleep apnea) 04/10/2025 Typical atrial flutter 04/10/2025 Essential hypertension 04/10/2025 Atypical chest pain 05/07/2020 Incisional hernia 03/12/2014 Overview (10/27/2016): Incisional hernia Syncope 12/07/2013 Overview (10/27/2016): Syncope Encounters Date Type Department Care Team Description 04/28/2025 Results Follow-Up [facility] [address] [facility] [address] [place] [address] Taye Martinez MD NM MPI SPECT (Rest and/or Stress) Multiple Studies 04/25/2025 7:45 AM CDT Ancillary Procedure [facility]iology at [address] [place] [address] Atypical chest pain; Coronary artery disease involving [place] coronary artery of [place] heart, unspecified whether angina present 04/10/2025 2:00 PM CDT Office Visit [facility] [address] [place] [address] Taye Martinez MD Typical atrial flutter (HCC) (Primary Dx); Atypical chest pain; PATIENCE (obstructive sleep apnea); Coronary artery disease involving [place] coronary artery of [place] heart, unspecified whether angina present; Chronic anticoagulation; Essential hypertension from Last 3 Months Surgical History Surgery Date Site/Laterality Comments OTHER SURGICAL HISTORY Diverticulitis-s/pcolon resection: APPENDECTOMY 1957 Appendectomy CHOLECYSTECTOMY Cholecystectomy APPENDECTOMY 1957 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4 C (97.5 F) 06/23/2020 10:59 AM AREA OPERATIONS MANAGER Respiratory Rate - - Oxygen Saturation 96% 04/10/2025 2:10 PM CDT Inhaled Oxygen Concentration - - Weight 78 kg (172 lb) 04/10/2025 2:10 PM CDT Height 160 cm (5' 3) 04/10/2025 2:10 PM CDT Body Mass Index 30.47 04/10/2025 2:10 PM CDT Plan of Treatment Health Maintenance Due Date Last Done Comments Depression Screening 1940 Fall Risk Assessment 1940 Hepatitis B Screening 1958 Well Visit 65+ 02/15/2004 DTaP/Tdap/Td Vaccine (1 - Tdap) 02/29/2012 2, 03/28/2002 Influenza Vaccine (#1) 2025 4, 04/27/2023, 05/11/2022, Additional history exists Pneumococcal vaccine 65+ Completed 015, 06/05/2013, 03/03/2004 Zoster Vaccine Completed 03/31/2025, 09/22, 11/24/2008 Procedures Procedure Name Priority Date/Time Associated Diagnosis Comments NM MPI SPECT (REST AND/OR STRESS) MULTIPLE STUDIES Schedule Routine, Read Routine (OP Routine) 04/25/2025 9:31 AM CDT Atypical chest pain Coronary artery disease involving [place] coronary artery of [place] heart, unspecified whether angina present from Last 3 Months Results * NM MPI SPECT (Rest and/or Stress) Multiple Studies (04/25/2025 9:31 AM CDT) Anatomical Region Laterality Modality Body N/A Electrocardiogra phy 04/25/2025 7:45 AM CDT Narrative 04/25/2025 5:51 PM CDT [facility] [address] [place] [address] [id number] [address] [facility] [address], [place] [address] [address], [place] [address] P:[phone] P:[phone] MPI Imaging Report Patient Name: VAUGHN GONZALEZ W : 1940 Study Date: 04/25/2025 7:45:00 AM Sex: M Tech: [facility] Location: [facility] Provider: TAYE MARTINEZ Height(Cm): 160 BSA: Weight(Kg): 78 Heart Rate: 114 BMI: 30.47 Order Provider: TAYE MARTINEZ PHYSICIAN: Primary Care Physician: Dr. Tsang. [facility] Physician: Alek Martinez M.D. Stress Supervision: Dimas Bauer M.D.,Phuc Stress Interpreting Physician: Dimas Bauer M.D.,Phuc Image Interpreting Physician: Dimas Bauer M.D.,Igor. PROCEDURES: Pharmacologic SPECT Report: Myocardial perfusion imaging with Tc99M Sestamibi SPECT at rest and stress post regadenoson (Lexiscan) infusion. INDICATIONS: Hypertension, Diabetes, Family Hx CAD, Former Smoker, GARCÍA, R07.89 Other chest pain, and I25.10 Atherosclerotic heart disease of [place] coronary artery without angina pectoris. FINDINGS: Procedural Findings: One day rest/stress was used. Tc99m Sestamibi injected IV at rest was 10.7 millicuries 32.2 millicuries of Tc99M Sestamibi injected IV during Lexiscan stress Lexiscan 0.4mg administered IV over 10 seconds. Patient had no symptoms during stress test. Baseline heart rate was 66 BPM Maximum Heart Rate Achieved was: 93 BPM Baseline blood pressure was 142/82 mmHg Post Stress Blood Pressure was 144/69 mmHg Termination: Protocol complete. Resting ECG: Sinus rhythm. Poor R wave progression. PVC. Post ECG: No diagnostic ST changes. Perfusion Findings: A TID of 1.02 was automatically calculated. defect 1: Size is medium. Severity is moderate. Location of defect is in the basal posterolateral segment. Reversibility is partial. Type of defect is ischemia. LV Function: Global left ventricular function is normal. Left ventricular ejection fraction is 58 %. CONCLUSIONS: Sinus rhythm Poor R wave progression PVC. No diagnostic ST changes. Global left ventricular function is normal. Left ventricular ejection fraction is 58 %. Size is medium. Severity is moderate. Location of defect is in the basal posterolateral segment. Reversibility is partial. Type of defect is ischemia. Attenuation correction utilized for the interpretation of this study. Electronically Signed By: Dimas Bauer MD, [facility] 04/25/2025 4:43:48 PM CDT Electronically Signed By: Dimas Bauer MD, [facility] 04/25/2025 4:43:48 PM CDT Procedure Note Dimas Bauer MD - 04/25/2025 [facility] [address] [facility] [address] [address] [address] [address] [facility] [address], [place], [place] [address], [place] [address] P:[phone] P:[phone] MPI Imaging Report Patient Name: VAUGHN GONZALEZ W : 1940 Study Date: 04/25/2025 7:45:00 AM Sex: M Tech: [facility] Location: [facility] Provider: TAYE MARTINEZ Height(Cm): 160 BSA: Weight(Kg): 78 Heart Rate: 114 BMI: 30.47 Order Provider: TAYE MARTINEZ PHYSICIAN: Primary Care Physician: Dr. Tsang. [facility] Physician: Alek Martinez M.D.Stress Supervision: Dimas Bauer M.D.,F.A.CIsaiasC. Stress InterpretingPhysician: Dimas Bauer M.D.,F.A.CIsaiasCIsaias Image Interpreting Physician: Dimas Munoz M.D.,FIsaiasAIsaiasCIsaiasC. PROCEDURES: Pharmacologic SPECT Report: Myocardial perfusion imaging with Tc99M Sestamibi SPECT at rest and stresspost regadenoson (Lexiscan) infusion. INDICATIONS: Hypertension, Diabetes, Family Hx CAD, Former Smoker, GARCÍA, R07.89 Otherchest pain, and I25.10 Atherosclerotic heart disease of [place] coronary artery withoutangina pectoris. FINDINGS: Procedural Findings: One day rest/stress was used. Tc99m Sestamibi injected IV at rest was 10.7 millicuries 32.2 millicuries of Tc99M Sestamibi injected IV during Lexiscan stress Lexiscan 0.4mg administered IV over 10 seconds. Patient had no symptoms during stress test. Baseline heart rate was 66 BPM Maximum Heart Rate Achieved was: 93 BPM Baseline blood pressure was 142/82 mmHg Post Stress Blood Pressure was 144/69 mmHg Termination: Protocol complete. Resting ECG: Sinus rhythm. Poor R wave progression. PVC. Post ECG: No diagnostic ST changes. Perfusion Findings: A TID of 1.02 was automatically calculated. defect 1: Size is medium. Severity is moderate. Location of defect is in the basalposterolateral segment. Reversibility is partial. Type of defect is ischemia. LV Function: Global left ventricular function is normal. Left ventricular ejectionfraction is 58 %. CONCLUSIONS: Sinus rhythm Poor R wave progression PVC. No diagnostic ST changes. Global left ventricular function is normal. Left ventricular ejectionfraction is 58 %. Size is medium. Severity is moderate. Location of defect is in the basalposterolateral segment. Reversibility is partial. Type of defect is ischemia. Attenuation correction utilized for the interpretation of this study. Electronically Signed By: Dimas Bauer MD, [facility] 04/25/2025 4:43:48 PM CDT Electronically Signed By: Dimas Bauer MD, [facility] 04/25/2025 4:43:48 PM CDT Taye Martinez MD IM NM PROCEDURES Final R esult from Last 3 Months Insurance MEDICARE [facility] FEDERAL Care Teams Windows Security Engineer Relationship Specialty Start Date End Date Edwin Tsang MD [address] [place] [address] PCP - General Family Practice 11/21/24
--- OUTSIDE RECORDS SUMMARY | 2025-05-22 01:33 | XMS_ITS | Clinical Summary ---
Author Organization [facility] Address [address] [place] [address] Care Team Providers Care Cylinder Grinder Name Role Phone Unavailable Primary Care Provider Unavailabl e Source Comments [facility],non-owned Affiliates and Associated Physician Practices is amultiple site organization consisting of ambulatory clinics and hospital sitesin [place], [place]. This disclosure is being madepursuant to the Care Everywhere program and may not contain all informatio navailable regarding this patient. Last updated 18.[facility] [employer] [facility] Social History Tobacco Use Types Packs/Day Years [...] - 1-dose 75+ series) 2014 DEPRESSION SCREENING 07/24/2024 COVID-19 VACCINE (1 - 2023-2 5 season) 2025 INFLUENZA VACCINE (#1) 2025 HEPATITIS B VACCINE Aged Out No [...] age to complete this topic Insurance MEDICARE [facility] MEDICARE [facility] SELF PAY NO INSURANCE Member Subscriber Plan / Payer (Ef fective for All Dates) Name:Vaughn Gonzalez Member ID:Not on file Relation to Subscriber:Not on file Name:VAUGHN GONZALEZ Subscriber ID:Not on file (Home) Address: [address] [place] [id number] Payer ID:Not on file Group ID:Not on file Type:Self Pay Address: [facility]
--- OUTSIDE RECORDS SUMMARY | 2025-05-22 01:33 | XMS_ITS | Encounter Summary ---
Author Organization [facility] Address [facility] [facility] [place] [address] Care Team Providers Care Customer Service Associate Name Role Phone Unavailable Primary Care Provider Unavailabl e Encounter Details Date Type Department Care Team (Late st Contact Info) Description 10/10/2022 Lab Requisition [facility] DermPath Lab [address] [place] [address] Martin Wooten MD [address] [place], [place] [id number] Social History Tobacco Use Types Packs/Day Years [...] AM CDT) Case Report Dermatopathology Report Case: [id number] Authorizing Provider: Martin Wooten MD Collected: 10/10/2022 12:00 AM Ordering Location: [facility] Care DermPath Lab Received: 10/10/2022 02:56 PM Pathologist: Susi Vincent MD Specimen: Skin, left upper forehead 12:34 PM CDT DERMATOPATHOLOGY LABORATORY Final Diagnosis Specimen A. 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 SCC. Please Check Margins. 12:34 PM T DERMATOPATHOLOGY LABORATORY Gross Description Specimen A: Received is one formalin filled container labeled with the patient's name and designated left upper forehead. The specimen consists of a curettage and desiccation biopsy measuring 48g31v2gi, 3n0o6zj and 4j3w4pd that are all inked. Jar 0+. 3 [...] characteristic determined by the Dermatopathology Laboratory at [facility], directed by Dr. Jordyn Castelan. These tests need not be, and therefore are not, approved by the [place] Food and Drug Administration. The tests are used for clinical purposes. Billing Codes Specimen Charges Stain Charges 38646 1 3 12:34 PM CDT DERMATOPATHOLOGY LABORATORY Embedded Images 3 12:34 PM CDT DERMATOPATHOLOGY LABORATORY Pathology/Cytolog y TISSUE SPECIMEN FROM SKIN / Unknown 10/10/2022 10/10/2022 2:56 PM CDT us Mratin Wooten MD LAB - PATHOLOGY/CYTOLOGY ORDERAB LES Final Result DERMATOPATHOLOGY LABORATORY [facility] - Department of Dermatology [address] [place], [place] [address] [place] [address] documented in this encounter Visit Diagnoses Not on filedocumented in this encounter
[2025-06-12] VITALS (16 sets, daily range): BP systolic 127–147; BP diastolic 61–97; PULSE 59–75; RESP 14–19; TEMP 36.2; O2SAT 94–99; BMI 28.0
--- OUTSIDE RECORDS SUMMARY | 2025-06-12 02:03 | XMS_ITS | Clinical Summary ---
Author Organization [facility] Address [address] [place] [place] [address] Care Team Providers Care Er Physician Name Role Phone Unavailable Primary Care Provider Unavailabl e Source Comments [facility],non-owned Affiliates and Associated Physician Practices is amultiple site organization consisting of ambulatory clinics and hospital sitesin [place], [place], [place] and [place]. This disclosure is being madepursuant to the Care Everywhere program and may not contain all informatio navailable regarding this patient. Last updated 18.[facility] [employer] Social History Tobacco Use Types Packs/Day Years [...] series) 2014 DEPRESSION SCREENING 07/24/2024 COVID-19 VACCINE ( - 2024-2 6 season) 2025 INFLUENZA VACCINE (#1) 2025 HEPATITIS [...] complete this topic Insurance MEDICARE [facility] MEDICARE [facility] SELF PAY NO INSURANCE Member Subscriber Plan / Payer (Ef fective for All Dates) Name:Vaughn Gonzalez Member ID:Not on file Relation to Subscriber:Not on file Name:VAUGHN GONZALEZ Subscriber ID:Not on file (Home) Address: [address] [place] [phone] Payer ID:Not on file Group ID:Not on file Type:Self Pay Address: [facility]
--- OUTSIDE RECORDS SUMMARY | 2025-06-12 02:03 | XMS_ITS | Clinical Summary ---
Author Organization [facility] [address] Address [address] [place] [address] Care Team Providers Care Director Advanced Name Role Phone Edwin Tsang MD Primary Care Provider [phone] Allergies No known active allergies Medications Euthyrox [...] anticoagulation 04/10/2025 Coronary artery disease invo lving sun'aq coronary artery of sun'aq heart 04/10/2025 PATIENCE (obstructive sleep apnea) 04/10/2025 Typical atrial flutter 04/10/2025 Essential hypertension 04/10/2025 Atypical chest pain 05/07/2020 Incisional hernia 03/12/2014 Overview (10/27/2016): Incisional hernia Syncope 12/07/2013 Overview (10/27/2016): Syncope Encounters Date Type Department Care Team Description 04/28/2025 Results Follow-Up [facility] Card[facility] [address] [facility] [address] [place] [address] Taye Martinez MD NM MPI SPECT (Rest and/or Stress) Multiple Studies 04/25/2025 7:45 AM CDT Ancillary Procedure [facility] Cardiology at [address] [place] [address] Atypical chest pain; Coronary artery disease involving sun'aq coronary artery of sun'aq heart, unspecified whether angina present 04/10/2025 2:00 PM CDT Office Visit [facility] Cardiology [address] [place] [address] Taye Martinez MD Typical atrial flutter (HCC) (Primary Dx); Atypical chest pain; PATIENCE (obstructive sleep apnea); Coronary artery disease involving sun'aq coronary artery of sun'aq heart, unspecified whether angina present; Chronic anticoagulation; [...] on file Legal Sex Male 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 Gender Identity Male 06/21/2021 9:06 AM BUNKER WORKER Sexual Orientation Bisexual 06/21/2021 9: 15 AM BUNKER WORKER Last Filed Vital Signs Vital Sign Reading Time Taken Comments Blood Pressure 120/60 04/10/2025 2:10 PM CDT Pulse 70 04/10/2025 2:10 PM CDT Temperature 36.4 C (97.5 F) 06/23/2020 10:59 AM BUNKER WORKER Respiratory Rate - - Oxygen Saturation 96% [...] Atypical chest pain Coronary artery disease involving sun'aq coronary artery of sun'aq heart, unspecified whether angina present from Last 3 Months Results * NM MPI SPECT (Rest and/or Stress) Multiple Studies (04/25/2025 9:31 AM CDT) Anatomical Region Laterality Modality Body N/A Electrocardiogra phy 04/25/2025 7:45 AM CDT Narrative 04/25/2025 5:51 PM CDT [facility] Cardiology [address] [facility] [address] [place] [id number] [address] [facility] [address], [place] [address] [address], [place] [address] P:[phone] P:[phone] MPI Imaging Report Patient Name: VAUGHN GONZALEZ W : 1940 Study Date: 04/25/2025 7:45:00 AM Sex: M Tech: FLAKO HERNANDEZMT Location: [facility] Provider: TAYE MARTINEZ Height(Cm): 160 BSA: Weight(Kg): 78 Heart Rate: 114 BMI: 30.47 Order Provider: TAYE MARTINEZ PHYSICIAN: Primary Care Physician: Dr. Tsang. [place] Physician: Alek Martinez M.D. Stress Supervision: Dimas Bauer M.D.,Phuc Stress Interpreting Physician: Dimas Bauer M.D.,Phuc Image Interpreting Physician: Dimas Bauer M.D.,Igor. PROCEDURES: Pharmacologic SPECT Report: Myocardial perfusion imaging with Tc99M Sestamibi SPECT at rest and stress post regadenoson (Lexiscan) infusion. INDICATIONS: Hypertension, Diabetes, Family Hx CAD, Former Smoker, GARCÍA, R07.89 Other chest pain, and I25.10 Atherosclerotic heart disease of sun'aq coronary artery without angina pectoris. FINDINGS: Procedural [...] study. Electronically Signed By: Dimas Bauer MD, [facility] 04/25/2025 4:43:48 PM CDT Electronically Signed By: Dimas Bauer MD, [facility] 04/25/2025 4:43:48 PM CDT Procedure Note Dimas Bauer MD - 04/25/2025 [facility] Cardiology [address] [facility] [address], [place] [address] [address] [facility] [address], [place] [address], [place] [address] P:[phone] P:[phone] MPI Imaging Report Patient Name: VAUGHN GONZALEZ W : 1940 Study Date: 04/25/2025 7:45:00 AM Sex: M Tech: [facility] Location: [facility] Provider: TAYE MARTINEZ Height(Cm): 160 BSA: Weight(Kg): 78 Heart Rate: 114 BMI: 30.47 Order Provider: TAYE MARTINEZ PHYSICIAN: Primary Care Physician: Dr. Tsang. [place] Physician: Alek Martinez M.D.Stress Supervision: Dimas Bauer M.D.,F.A.CIsaiasC. Stress InterpretingPhysician: Dimas Bauer M.D.,F.A.CIsaiasCIsaias Image Interpreting Physician: Dimas Munoz M.D.,FIsaiasA.CIsaiasC. PROCEDURES: Pharmacologic SPECT Report: Myocardial perfusion imaging with Tc99M Sestamibi SPECT at rest and stresspost regadenoson (Lexiscan) infusion. INDICATIONS: Hypertension, Diabetes, Family Hx CAD, Former Smoker, GARCÍA, R07.89 Otherchest pain, and I25.10 Atherosclerotic heart disease of sun'aq coronary artery withoutangina pectoris. FINDINGS: Procedural Findings: [...] study. Electronically Signed By: Dimas Bauer MD, [facility] 04/25/2025 4:43:48 PM CDT Electronically Signed By: Dimas Bauer MD, [facility] 04/25/2025 4:43:48 PM CDT Taye Martinez MD IM NM PROCEDURES Final R esult from Last 3 Months Insurance MEDICARE [facility] [employer] Care Teams Director Advanced Relationship Specialty Start Date End Date Edwin Tsang MD [address] [place] [address] PCP - General Family Practice 11/21/24
--- OUTSIDE RECORDS SUMMARY | 2025-06-12 02:03 | XMS_ITS | Data Portability ---
Author Organization [place] [facility] [employer], Main Office Address [address] [place] [address] Care Team Providers Care Air Conditioning Installer Name Role Phone JANKI GRIGGS Primary Care Provider JANKI GRIGGS Referring Provider [phone] ERIK BETANCOURT Primary Care Provider [phone] ERIK BETANCOURT Referring Provider [phone] Assessment Encounter Date Assessment Date Assessment LastModified [...] in 2019 which showed medial compartment is iinu-ti-vwmg in the left knee on a PA [...] more than half the time spent in slbw-ra-ipbb care. I will see him back on [...] procedure, administere d by provider 2022 023 In-Office Order, Internal Use Only DO Not Attach Compendium DO Not Attach Compendium, Do Not Delete/merge, [id number] 3 10:53:51 injection/a spiration joint/bursa (PROC) - in office procedure, administere d by provider 2022 023 [email or web address] In-Office Order, Internal Use Only DO Not Attach Compendium DO Not Attach Compendium, Do Not Delete/merge, [id number] 12:33:59 Surgeries None recorded. Imaging XR, knee 2022 023 [email or web address] [facility] [place], [address], [place], [address], 13:29:01 Medication Orders Kenalog 10 mg/mL suspension for injection [address] [facility], [address] [place] [address], [address], 3 10:08:54 ropivacaine (PF) 5 mg/mL (0.5 %) injection solution [address] [facility], [address] [place] [address], [address], 3 10:08:54 Kenalog 10 mg/mL suspension for injection [address] [facility], [address] [place] [address], [address], 3 12:38:25 ropivacaine (PF) 5 mg/mL (0.5 %) injection solution [address] [facility], [address] [place] [address], [address], 3 12:38:25 Patient TargetsNo targets recorded. Patient InstructionsNo instructions recorded. Reason for Referral None Reported. Results Created Date Observation Date Name Description Value Unit Range Abnormal Flag Note LastModifiedBy Organization Detail LastModifiedTime 03/31/20 21 XR, knee No observ ation record ed. [id number] [facility] [place] [address], [place], [address], 09/21/2022 21:14:09 04/21/20 21 XR, knee, 3 view No observ ation record ed. [id number] [facility] [place] [address], [place], [address], 09/21/2022 21:14:09 10/23/19 22 XR, knee No observ ation record ed. [id number] [facility] [place] [address], [place], [address], 09/21/2022 21:14:09 06/05/20 23 XR, knee No observ ation record ed. [email or web address] [facility] [place] [address], [place], [address], 06/05/2023 13:29:00 Result Notes None recorded. Problems Name Problem SNOMED Code Status Onset Date Resolution Date Notes Provider Name and Address Organization Details Recorded Time Osteoarthr itis 301707130 Active Not Available [facility] 3 21:12:20 Pain of left knee joint 9149522264505 07 Active 2022 BONNY Linton [facility] 3 12:29:25 Osteoarthr itis of left knee joint 7643454979656 09 Active 2022 BONNY Linton [facility] 3 10:52:12 Problem Notes None recorded. Procedures Surgical History Date Name Laterality Status Provider Name and Address Organization Details Recorded Time procedure on gallbladder completed Not Available [facility] 09/21/2022 21:11:21 resection of diverticulum completed Not Available [facility] 09/21/2022 21:11:21 Unlisted px cardiac surgery completed Not Available [facility] 09/21/2022 21:11:21 [facility]endectomy [facility]2022 21:11:21 Colon Resection completed [facility] Available [facility] 09/21/2022 21:11:21 Retina completed Not Available [facility] 07/2022 21:11:21 Hernia Repair completed [facility] Available [facility] 09/21/2022 21:11:21 Imaging Results None recorded. [...] administe red by the provider 10/22 completed [facility]: [id number]- [id number] Not Available Not Available [...] DateTime 10/13/2022 167.64 cm Modesta Jose Mina txtr [employer] 10/13/2022 12:28:52 Date Recorded Body mass index (BMI) Body height Body weight Provider Name and Address Organization Details Last Updated DateTime 11/04/2021 40.4 kg/m2 167.64 cm 460257.09 g Not Available [facility] 09/21/2022 21:11:27 Date Recorded Body height Provider Name an d Address Organization Details Last Updated DateTime 05/24/2023 167.64 cm Modesta Jose Mina txtr [employer] 05/24/2023 10:51:37 Social History None recorded. Functional Status Question Answer Note LastModified by Organizat ion Details LastModified Time What is your level of alcohol consumption? None [id number] Information not available 09/21/2022 Mental Status None recorded. Family History Relationship Description Onset Age of this Age Resolved Age Notes LastModified by Organization Details LastModified Time Mother Heart disease [id number] Not available 09/21/2022 21:11:22 Father Hypertensive disorder [id number] Not available 09/21/2022 21:11:22 Son Blood coagulation disorder [id number] Not available 09/21/2022 21:11:22 Medical History Condition Response SKIN PROBLEMS Y DIABETES, TYPE Y ARTHRITIS Y Past Encounters Encounter ID Performer Location Encounter Start Date Encounter Closed Date Diagnosis/Indication Diagnosis SNOMED-CT Code Diagnosis ICD10 Code Diagnosis IMO Codes Diagnosis Note [id number] MD SHARATH [facility] [place] [address] [facility] [place] [address] 03/31/2021 00:00:00 03/31/2021 16:17:42 [id number] MD SHARATH [facility] [place] [address] [facility] [place] [address] 04/21/2021 00:00:00 04/21/2021 16:00:50 [id number] MD SHARATH [facility] [place] [address] [facility] [place] [address] 10/22/2021 00:00:00 10/22/2021 12:12:59 [id number] MD SHARATH Marks_[facility] [address] [address] 11/04/2021 00:00:00 11/04/2021 11:26:25 [id number] MD SHARATH Marks_[facility] [address] [address] 10/13/2022 12:05:32 10/13/2022 14:19:59 Pain of left knee joint 7399712802 61703 M25.422 [id number] Jorge Malin MD [facility] [place] [address] [facility] [place] [address] 05/24/2023 10:43:51 05/24/2023 12:13:17 Osteoarthritis of left knee joint 6289143234 35854 M17.12 Health Concerns Section Related Observation LastModified by Organization Detai ls LastModified Time None Recorded Concern Status LastModified by Organization Details LastModified Time None Recorded Advance Directives Directive None Recorded Payers Insurance Date Sequence Insurance Name Policy Number Policy Herrera Covered Member ID Herrera Member ID Guarantor Name 05/24/2023 1 [place] Loy Gonzalez [id number] Loy Gonzalez 06/05/2023 2 [place] 106 Loy Gonzalez [id number] Loy Gonzalez 05/24/2023 [employer] - DMEPOS ASSIGNED (MEDICARE DME REGION B) Loy Gonzalez [id number] Loy Gonzalez
--- OUTSIDE RECORDS SUMMARY | 2025-06-12 02:04 | XMS_ITS | Encounter Summary ---
Author Organization [facility] Address [facility] [place] [address] Care Team Providers Care Ring Maker Name Role Phone Unavailable Primary Care Provider Unavailabl e Encounter Details Date Type Department Care Team (Late st Contact Info) Description 10/10/2022 Lab Requisition [facility] DermPath Lab [address] [place] [address] Martin Wooten MD [address] [place], [place] [id number] Social History Tobacco Use Types Packs/Day Years [...] AM CDT) Case Report Dermatopathology Report Case: [id number] Authorizing Provider: Martin Wooten MD Collected: 10/10/2022 12:00 AM Ordering Location: [facility] Care DermPath Lab Received: 10/10/2022 02:56 PM [...] of a curettage and desiccation biopsy measuring [id number], [id number] and 4b7x6gg that are all inked. Jar 0+. 3 [...] characteristic determined by the Dermatopathology Laboratory at [facility], directed by Dr. Jordyn Castelan. These tests need not be, and therefore are not, approved by the [place] Food and Drug Administration. The tests are used for clinical purposes. Billing Codes Specimen Charges Stain Charges 67740 1 3 12:34 PM CDT DERMATOPATHOLOGY LABORATORY Embedded Images 3 12:34 PM CDT DERMATOPATHOLOGY LABORATORY Pathology/Cytolog y TISSUE SPECIMEN FROM SKIN / Unknown 10/10/2022 10/10/2022 2:56 PM CDT us Martin Wooten MD LAB - PATHOLOGY/CYTOLOGY ORDERAB LES Final Result DERMATOPATHOLOGY LABORATORY [facility] - Department of Dermatology [address] [place] [address] [place] [address] documented in this encounter Visit Diagnoses Not on filedocumented in this encounter
[2025-06-12 08:30] LABS: Hematocrit 31.9 % (42.0-52.0); Hemoglobin 10.5 g/dL (14.0-18.0); Immature Granulocyte Percent A 0.3 % (0-0.5); Lymphocytes Absolute Auto 0.86 K/mm3 (0.9-3.2); Mean Corpuscular HGB Conc 32.9 g/dl (32-36); Mean Corpuscular Hemoglobin 29.7 pg (26-34); Mean Corpuscular Volume 90.4 fl (80-100); Nucleated Red Blood Cells Absolute Auto 0.000 K/mm3 (0.0-0.012); Nucleated Red Blood Cells Perc 0.0 % (0.0-0.2); Platelet Count Result 266 k/mm3 (150-375); Red Blood Count 3.53 M/mm3 (4.6-6.20); White Blood Count 6.7 K/mm3 (4.5-10.0)
--- NOTE | 2025-06-12 08:31 | PM.IMHP ---
H&P: HPI History of Present Illness Date/Time: 06/12/25 08:31 Chief Complaint: Abnormal stress test Narrative: 85-year-old man with paroxysmal atrial flutter on Eliquis, diabetes, hypertension, and coronary artery disease who experience occasional chest discomfort for which a nuclear stress test was performed showing fluid ischemia for which a cardiac catheterization with possible PCI has been recommended. Review of Systems Cardiovascular: Cardiovascular: Reports as per HPI Respiratory: Respiratory: Reports as per HPI [facility] Past Medical History Medical History Atrial fibrillation Retinal detachment s/p cryosurgery, 2001 CAD (coronary artery disease) Hernia BMI 29.0-29.9,adult Neuropathy COVID-19 Essential (primary) hypertension Gastro-esophageal reflux disease without esophagitis Other and unspecified hyperlipidemia Hypothyroidism Type 2 diabetes mellitus without complication, with no history of insulin use Vitamin D deficiency Surgical History Surgical History History of cholecystectomy History of appendectomy History of colon resection Family History Family History Mother Family history of gastrointestinal disorder, Onset Age: 85 Family history of congestive heart failure, Onset Age: 85 Patient's mother is Family history of heart disease in male family member before age 55 Family history of congenital heart disease, Onset Age: 85 Father Family history of Alzheimer's disease, Onset Age: 89 Patient's father is Family history of renal failure Sibling Family history of Alzheimer's disease Other Hypertension Social History Social History Smoking packs per day: 0.5 Smoking cigarettes per day: 10.0 Years smoked: 4 Smoking pack-years: 2.00 Smoking status: Never smoker Tobacco type: cigarettes Second hand tobacco smoke exposure: No Additional smoking assessment comments: quit smoking in 1964 Alcohol intake: never Substance use: never Substance use type: does not use Do You Feel Safe in your Home?: Yes Lack of Transportation: No Lack of Food: Never True Current Housing: I Have Housing Concerned About Future Housing: No Difficulty Paying Gas/Electric Bills: No Difficulty Paying for Meds: No Currently Unemployed: No Education: Bachelor's Degree Difficulty w/ Childcare or Family Care: No Living arrangements: with family Occupation/Education: retired 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[employer], 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 Gender identity (if verbalized by the patient): Male Spiritual care concerns: No Meds Home Medications and Allergies Home Medications ?Medication ?Instructions ?Recorded ?Confirmed ?Type cholecalciferol (vitamin D3) 50 2,000 unit PO DAILY #90 tabs 06/28/19 05/21/25 Rx mcg (2,000 unit) tablet metronidazole 0.75 % topical gel 1 applic topical BID 01/03/20 05/21/25 History multivitamin 1 cap PO 1200 04/29/20 05/21/25 History loratadine 10 mg capsule 10 mg PO DAILY 06/08/21 05/21/25 History apixaban 5 mg tablet (Eliquis) 5 mg PO Q12HR #60 tabs 10/23/24 05/21/25 Rx metoprolol succinate 25 mg 25 mg PO QPM #90 tabs 10/30/24 05/21/25 Rx tablet,extended release 24 hr nitroglycerin 0.4 mg sublingual 0.4 mg sublingual Q5M PRN chest 03/26/25 05/21/25 History tablet pain amlodipine 5 mg tablet 5 mg PO DAILY 05/21/25 06/12/25 History aspirin 81 mg tablet 81 mg PO DAILY 05/21/25 05/21/25 History cyanocobalamin (vitamin B-12) 1,000 mcg PO DAILY 05/21/25 05/21/25 History 1,000 mcg capsule empagliflozin 5 mg-metformin 1,000 1 tablet PO DAILY 05/21/25 05/21/25 History mg tablet (Synjardy) ferrous sulfate 325 mg (65 mg 325 mg PO DAILY 05/21/25 05/21/25 History iron) tablet levothyroxine 75 mcg tablet 75 mcg PO DAILY 05/21/25 06/12/25 History (Euthyrox) lisinopril 40 mg tablet 40 mg PO DAILY 05/21/25 06/12/25 History omeprazole 40 mg capsule,delayed 40 mg PO DAILY 05/21/25 05/21/25 History release Allergies Allergy/AdvReac Type Severity Reaction Status Date / Time No Known Allergies Allergy Mild Verified 06/12/25 08:16 Vital Signs Vital Signs - 24 hr 06/12/25 08:19 Temperature 36.2 C L Pulse Rate 62 Respiratory Rate 16 Blood Pressure 140/71 Pulse Oximetry 99 Oxygen Delivery Room Air Exam Const: General: comfortable HENMT: Mouth: Yes moist mucous membranes Eyes: EOM: EOMs intact bilaterally Neck: Neck: no JVD Resp: Effort & Inspection: normal respiratory effort Cardio: Rate: regular rate Extrem: General: no pedal edema Assessment and Plan Assessment and plan (1) Abnormal stress test: Code(s): R94.39 - Abnormal result of other cardiovascular function study Status: Acute Plan 85-year-old man with paroxysmal atrial flutter on Eliquis, diabetes, hypertension, and coronary artery disease who experience occasional chest discomfort for which a nuclear stress test was performed showing fluid ischemia for which a cardiac catheterization with possible PCI has been recommended -the risk and the benefits, alternatives of the procedure has been discussed with the patient as well as his son at bedside and after all questions were answered, decision was made to proceed forward with left heart catheterization with possible PCI
--- NOTE | 2025-06-12 08:33 | WPDMODSED ---
Moderate Sedation Note-Pt Data Patient Data Allergies Allergy/AdvReac Type Severity Reaction Status Date / Time No Known Allergies Allergy Mild Verified 06/12/25 08:16 Home Medications ?Medication ?Instructions ?Recorded ?Confirmed ?Type cholecalciferol (vitamin D3) 50 2,000 unit PO DAILY #90 tabs 06/28/19 05/21/25 Rx mcg (2,000 unit) tablet metronidazole 0.75 % topical gel 1 applic topical BID 01/03/20 05/21/25 History multivitamin 1 cap PO 1200 04/29/20 05/21/25 History loratadine 10 mg capsule 10 mg PO DAILY 06/08/21 05/21/25 History apixaban 5 mg tablet (Eliquis) 5 mg PO Q12HR #60 tabs 10/23/24 05/21/25 Rx metoprolol succinate 25 mg 25 mg PO QPM #90 tabs 10/30/24 05/21/25 Rx tablet,extended release 24 hr nitroglycerin 0.4 mg sublingual 0.4 mg sublingual Q5M PRN chest 03/26/25 05/21/25 History tablet pain amlodipine 5 mg tablet 5 mg PO DAILY 05/21/25 06/12/25 History aspirin 81 mg tablet 81 mg PO DAILY 05/21/25 05/21/25 History cyanocobalamin (vitamin B-12) 1,000 mcg PO DAILY 05/21/25 05/21/25 History 1,000 mcg capsule empagliflozin 5 mg-metformin 1,000 1 tablet PO DAILY 05/21/25 05/21/25 History mg tablet (Synjardy) ferrous sulfate 325 mg (65 mg 325 mg PO DAILY 05/21/25 05/21/25 History iron) tablet levothyroxine 75 mcg tablet 75 mcg PO DAILY 05/21/25 06/12/25 History (Euthyrox) lisinopril 40 mg tablet 40 mg PO DAILY 05/21/25 06/12/25 History omeprazole 40 mg capsule,delayed 40 mg PO DAILY 05/21/25 05/21/25 History release Current Medications: Active Medications Sodium Chloride (Normal Saline Iv) 500 mls @ 100 mls/hr IV CONT .Q5H SALAS Sedation/Anesthesia: No previous sedation/anesthesia problems (including family history). [facility] Past Medical History Medical History Atrial fibrillation Retinal detachment s/p cryosurgery, 2002 CAD (coronary artery disease) Hernia BMI 29.0-29.9,adult Neuropathy COVID-19 Essential (primary) hypertension Gastro-esophageal reflux disease without esophagitis Other and unspecified hyperlipidemia Hypothyroidism Type 2 diabetes mellitus without complication, with no history of insulin use Vitamin D deficiency Surgical History Surgical History History of cholecystectomy History of appendectomy History of colon resection Family History Family History Mother Family history of gastrointestinal disorder, Onset Age: 85 Family history of congestive heart failure, Onset Age: 85 Patient's mother is Family history of heart disease in male family member before age 55 Family history of congenital heart disease, Onset Age: 85 Father Family history of Alzheimer's disease, Onset Age: 89 Patient's father is Family history of renal failure Sibling Family history of Alzheimer's disease Other Hypertension Social History Social History Smoking packs per day: 0.5 Smoking cigarettes per day: 10.0 Years smoked: 4 Smoking pack-years: 2.00 Smoking status: Never smoker Tobacco type: cigarettes Second hand tobacco smoke exposure: No Additional smoking assessment comments: quit smoking in 1963 Alcohol intake: never Substance use: never Substance use type: does not use Do You Feel Safe in your Home?: Yes Lack of Transportation: No Lack of Food: Never True Current Housing: I Have Housing Concerned About Future Housing: No Difficulty Paying Gas/Electric Bills: No Difficulty Paying for Meds: No Currently Unemployed: No Education: Bachelor's Degree Difficulty w/ Childcare or Family Care: No Living arrangements: with family Occupation/Education: retired 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[employer], [employer] Gender identity (if verbalized by the patient): Male Spiritual care concerns: No Mod Sed Physical Exam Physical Exam Pre Procedural Exam: Normal: Lungs, Heart Size and Heart Rate Hours since solid foods: 12 Hours since liquid intake: 12 Mallampati Classification: class II Internal Medicine - PN: Obj Da Vital Signs Vital Signs: Vital Signs - 24 hr 06/12/25 08:19 Temperature 36.2 C L Pulse Rate 62 Respiratory Rate 16 Blood Pressure 140/71 Pulse Oximetry 99 Oxygen Delivery Room Air Meds/Results Medications: Active Medications Generic Name Dose Route Start Last Admin Trade Name Freq PRN Reason Stop Dose Admin Sodium Chloride 500 mls @ 100 mls/hr 06/12/25 08:00 Normal Saline Iv IV CONT .Q5H SALAS Labs 06/12/25 08:15 06/12/25 08:15 ASA Classification/Sedation ASA Classification/Sedation ASA Class: III Emergent: No Risks: Risks, benefits and alternatives explained and patient/family accepted plan for sedation. Patient re-evaluated immediately prior to sedation.
[2025-06-12 08:43] LABS: Anion Gap 9 mmol/L (4-12); Blood Urea Nitrogen 22 mg/dL (9-20); Calcium 8.6 mg/dL (8.4-10.2); Carbon Dioxide 22 mmol/L (22-30); Chloride 108 mmol/L (98-107); Estimated CRCL calculation 37 ml/min; Estimated Glomerular Filt Rate > 60; Glucose 130 mg/dL (65-110); Potassium 3.8 mmol/L (3.4-5.0); Sodium 139 mmol/L (137-145)
--- NOTE | 2025-06-12 10:29 | WPDCARDPROC ---
Cardiac Cath Procedure Note Date of procedure:: 06/12/25 Performing physician:: CATHETERIZATION LABORATORY REPORT Procedure Date: 06/12/2025 Referring Physician: Dr. Thomason Anesthesia: Versed and Fentanyl were ordered and given in my presence at 0945, procedure ended at 1012. Supervision of nurse monitored moderate sedation with 2mg Versed and 50mcg Fentanyl was provided for 27 minutes. Pre-op Diagnosis: Abnormal stress test Post-op Diagnosis: Abnormal stress test Procedure(s): Left heart catheterization with coronary angiography Access Site: Right radial artery Brief History and Clinical Indications: All risks, benefits and alternatives to left heart catheterization with or without percutaneous coronary intervention was discussed at length with the patient. Risk of complications including but not limited to bleeding, infection, arrhythmia, stroke, worsening kidney function, blood loss, groin hematoma, limb loss, emergency coronary artery bypass grafting, and even were discussed with the patient and all questions were answered. The patient understood and wished to proceed. Time out called, patient name, date of , medical record number, allergies, procedure performed, identify Healthcare Economics Consultant, patient and staff member concurred with accurate data, procedure carried on. Findings: LEFT HEART CATHETERIZATION FINDINGS: 1. Left main: The left main coronary artery is widely patent without any significant obstructive disease. 2. Left anterior descending: The LAD has 30-40% proximal stenosis. There is a long diffuse segment of 40-50% stenosis in the distal LAD. The diagonal branches are free of angiographic high-grade stenosis. 3. Left circumflex: The left circumflex artery in its proximal body has diffuse 10-20% stenosis. The remainder of the vessel and its branches have luminal irregularities. 4. Right coronary artery: The RCA is a large dominant vessel. There is a 50% proximal stenosis. The remainder of the vessel and its branches have luminal irregularities. 5. Left ventricle: A. End-diastolic pressure 31 mmHg. B. LV gram deferred. C. No significant gradient across aortic valve on catheter pullback. 6. Opening AO pressure 132/66 and closing AO pressure 157/66 Description of Procedure: Informed consent signed and placed in the chart. Patient transferred to laboratory phlebotomist room. Prepped and draped in usual sterile fashion. 2% lidocaine injected subcutaneously in right wrist area. 22-gauge venipuncture catheter used to access the right radial artery with the Seldinger technique. 6-FR slender sheath placed in right radial artery. Nitroglycerin 200mcg, Verapamil 2.5mg, and Heparin 5000U was given intraarterial through the sheath. J wire advanced under fluoroscopy. 5F Ultra diagnostic catheter nonselectively assessed the Left Main Coronary Artery and engaged the Right Coronary Artery. 5F JL4 diagnostic catheter was then used to engage the left main coronary artery for better visualization. Multiple orthogonal angiogram obtained and reviewed 5F Pigtail catheter crossed aortic valve to obtain LVEDP, LV angiogram deferred. Decision was made to perform IFR on the proximal RCA lesion. JR4 guide catheter was used to engage the right coronary artery. An iFR wire was zeroed outside of the body and introduced into the ostium of the right coronary artery where it was normalized. The iFR wire was then advanced across the lesion where spot iFR was recorded at 0.96 and 0.97. Pullback was performed and no drift was seen. Assessment: Moderate CAD Post Operative Condition: Stable No significant blood loss Disposition: Home Plan: The above findings were discussed with the referring physician. Continue aggressive medical therapy and risk factor modification. Gagandeep Westfall [facility]
[2025-06-12] MEDS: SODIUM CHLORIDE 0.9% IV 1,000 ML 125 ML IV CONT (10:35)
== END 2025-06-12 14:13 | disposition home or self-care (01) ==
PROVIDERS: PCP Family Medicine; Visit Provider Internal Medicine
PROC: 4A023N7 Measurement of Cardiac Sampling and Pressure, Left Heart, Percutaneous Approach (ICD-10-PCS; CPT 93452; principal; 2025-06-12 10:00)
PROC: 4A033BC Measurement of Arterial Pressure, Coronary, Percutaneous Approach (ICD-10-PCS; CPT 93571; 2025-06-12 10:00)
DX: R94.39 Abnormal result of other cardiovascular function study (principal); I25.10 Atherosclerotic heart disease of native coronary artery without angina pectoris; I48.92 Unspecified atrial flutter; I10 Essential (primary) hypertension; E11.9 Type 2 diabetes mellitus without complications; E03.9 Hypothyroidism, unspecified; E55.9 Vitamin D deficiency, unspecified; E78.49 Other hyperlipidemia; K21.9 Gastro-esophageal reflux disease without esophagitis; G62.9 Polyneuropathy, unspecified; Z79.01 Long term (current) use of anticoagulants; Z79.82 Long term (current) use of aspirin; Z79.84 Long term (current) use of oral hypoglycemic drugs; Z98.890 Other specified postprocedural states; Z90.49 Acquired absence of other specified parts of digestive tract; Z87.891 Personal history of nicotine dependence; Z87.19 Personal history of other diseases of the digestive system; Z82.49 Family history of ischemic heart disease and other diseases of the circulatory system
CPT/HCPCS: 36415; 80048; 85025; 93458; 93571; C1769; C1887; C1894; J1644; J2003; J2250; J2305; J3010; J7040